=== PATIENT | male | born 1995 | race Caucasian/White ===

== ENCOUNTER 2022-10-05 10:03 | Outpatient (AMB) | payer OTHER, SELFPAY ==
--- NOTE | 2022-10-05 10:07 | A.OFFPC_ITS ---
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 Intake Note: Pt is here today as a New Patient/ PE Allergies No Known Allergies Allergy (Verified 10/12/22 23:00) Medication List - Last Reconciled 10/05/22 by Sharon Miles MD dextroamphetamine-amphetamine 10 mg (Adderall) 15 mg PO DAILY metaxalone mg PO naproxen 500 mg PO BID Tobacco use date assessed: 10/05/22 Dental Screening Dental Screen Date: 10/05/22 Did you have a dental visit in the last 12 months?: Yes Did you have a dental problem in the last 6 months where you did not have access to dental care?: No Was dental information given to patient?: 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 He currently is taking dextroamphetamine-amphetamine, prescribed by his previous physician in [place], for ADD. He also has PTSD, to be starting with a new therapist and psychiatrist in [place] for treatment. He has been complaining however of feeling tired all the time, has excessive daytime sleepiness, has been told that he has episodes where he has would stop breathing briefly at night, and he snores loudly. He has chronic low back pain, diagnosed to have lumbar disc disease with radiculopathy, and has had epidural steroid injections in 2021 while he was in [place] and is currently undergoing physical therapy . Complains of difficulty initiating and maintaining penile erection during sexual intercourse, this has been ongoing now and getting worse over the last several months. [facility] Medical History (Updated 10/12/22 @ 23:32 by Sharon Miles MD) ADD (attention deficit disorder) Difficulty concentrating Erectile dysfunction Excessive daytime sleepiness Fatigue History of chlamydia History of COVID-19 Loud snoring Lumbar degenerative disc disease Lumbar disc disease with radiculopathy PTSD (post-traumatic stress disorder) Witnessed apneic spells Surgical History (Updated 10/05/22 @ 10:51 by Sharon Miles MD) No pertinent past surgical history Social History Housing: Apartment Patient Tobacco Use Status: Never used Tobacco e-Cigarette/Vaping Use: Never Used service: Yes Current occupational status: employed Cognitive needs: No Hearing needs: No Vision needs: No Questionnaire PHQ-9 Over the last 2 weeks, how often have you been bothered by any of the following problems? 1. Little interest or pleasure in doing things: nearly every day 2. Feeling down, depressed, or hopeless: several days 3. Trouble falling or staying asleep, or sleeping too much: nearly every day 4. Feeling tired or having little energy: several days 5. Poor appetite or overeating: nearly every day 6. Feeling bad about yourself - or that you are a failure or have let yourself or your family down: more than half the days 7. Trouble concentrating on things, such as reading the newspaper or watching television: several days 8. Moving or speaking so slowly that other people could have noticed. Or the opposite - being so fidgety or restless that you have been moving around a lot more than usual: not at all 9. Thoughts that you would be better off or of hurting yourself in some way: not at all Total score: 14 Depression Screening Interpretation: Positive (Will be starting to see a therapist and a new psychiatrist in [place]) Depression Screening Follow- up: Existing condition, In treatment and Community Mental Health Worker F/U 06505 - PHQ-9 Billing: Yes Source: Developed by Drs. Shamir Ferraro, Jael Adams, Yobani Landaverde and colleagues, with an educational vidya from [employer]. Thrive Questionnaire Date Thrive assessed: 10/05/22 I am a: Patient What is your living situation today?: I have a steady place to live Within the past 12 months, did the food you bought not last and you didn't have the money to get more?: Never true Within the past 12 months, did you worry whether your food would run out before you got money to buy more?: Never true Do you have trouble paying for medicines?: No Do you have trouble getting transportation to medical appointments?: No Do you have trouble paying your heating and electricity bill?: No Do you have trouble taking care of your child, family member or friend?: No Do you have trouble with day-to-day activities such as bathing, preparing meals, shopping, managing finances, etc.?: No Are you currently unemployed and looking for a job?: No Are you interested in more education?: No AUDIT C Alcohol Use Questionnaire (AUDIT-C) 1. How often do you have a drink containing alcohol?: Never Total Score: 0 KHANG-7 AMB Questionnaire KHANG-7 Date KHAGN - 7 assessed: 10/05/22 Feeling nervous, anxious, or on edge: 2 = More than half the days Not being able to stop or control worryin = More than half the days Worrying too much about different things: 2 = More than half the days Trouble relaxin = Nearly every day Being so restless that it is hard to sit still: 2 = More than half the days Becoming easily annoyed or irritable: 1 = Several days Feeling afraid as if something awful might happen: 2 = More than half the days Total KHANG-7 score (0-4 normal; 5-9 mild; 10-14 moderate; 15-21 severe): 14 Source: Developed by Drs. Shamir Ferraro, Jael Adams, Yobani Landaverde and colleagues, with an educational vidya from [employer]. KHANG-7 Assessment Billing KHANG-7 Assessment Tool: KHANG-7 Assessment 21029 Mousie Sleepiness Scale Questions Sitting and reading: slight chance of dozing Watching TV: high chance of dozing Sitting inactive in a theater, movie etc.: slight chance of dozing As a passenger in a car for an hour without break: would never doze (Not applicable) Lying down in the afternoon when circumstances permit: high chance of dozing Sitting and talking to someone: would never doze Sitting quietly after lunch without alcohol: slight chance of dozing In a car, while stopped for a few minutes in the traffic: would never doze ESS < 10: normal, ESS > 12: pathologic: 9 Review of Systems Const Denies fever(s), Denies headache(s) and Denies weakness Eyes Denies change in vision ENT Denies dizziness, Denies headache(s), Denies nasal congestion, Denies nasal discharge and Denies sore throat Card Denies chest pain, Denies lightheadedness, Denies palpitations and Denies dyspnea Resp Denies chest congestion, Denies cough, Denies dyspnea and Denies wheezing GI Denies abdominal pain, Denies change in bowel habits and Denies heartburn Denies hematuria, Denies difficulty urinating, Denies dysuria, Denies urinary frequency and Denies urinary urgency Musc Reports as per HPI, Denies muscle weakness and Reports stiffness Skin/Breast Denies lesions and Denies rash Neuro Denies dizziness, Denies headache(s) and Denies weakness Psych Reports as per HPI Endo Denies polydipsia, Denies polyuria and Denies palpitations Masood/Lymph Denies easy bruising Aller/Immun Denies seasonal rhinorrhea and Denies wheezing Physical exam (Primary Care) Vital Signs: Last Vital Signs Pulse 78 10/05/22 10:12 BP 110/76 10/05/22 10:12 Pulse Ox 98 10/05/22 10:12 Oxygen Delivery Method Room Air 10/05/22 10:12 BMI result Body Mass Index 30.0 Tobacco/Smoking Status: Tobacco use Status Tobacco use date assessed 10/05/22 10/05/22 10:18 Patient Tobacco Use Status Never used Tobacco 10/05/22 10:18 e-Cigarette/Vaping Use Never Used 10/05/22 10:18 Depression Screening Interpretation: Positive (Will be starting to see a therapist and a new psychiatrist in [place]) Depression Screening Follow- up: Existing condition, In treatment and Community Mental Health Worker F/U Thrive Assessment: Date of Thrive Assessment Date Thrive assessed 10/05/22 10/05/22 10:18 Const General: cooperative, healthy appearing, comfortable, no acute distress, alert, awake and Physically active Nutritional Appearance: obese Orientation/consciousness: patient oriented x3 HENMT Head: Yes normocephalic Ears: hearing grossly normal bilaterally, external ears normal, TM's normal bilaterally and EAC's normal Face and sinus: Yes face symmetric Mouth: Normal oral and palatal mucosa present, tongue normal, oropharynx normal and moist mucous membranes Chest Chest palpation & inspection: normal inspection of the chest and normal palpation of entire chest wall Resp Effort & Inspection: normal respiratory effort and able to speak in complete sentences Auscultation: clear to auscultation bilaterally Cardio Rate: regular rate Rhythm: regular rhythm Heart sounds: S1 normal heart sound present and S2 normal heart sound present General: Yes no CVA tenderness Male General Exam: Yes normal external exam Back/Spine/Pelvis Back: no CVA tenderness Thoracic/Lumbar Spine: straight leg raise negative bilaterally and paraspinal muscle tenderness bilaterally in the lower lumbar Skin General skin exam: no rashes or lesions noted Neuro General: patient oriented x3, gait normal, tone normal, moves all extremities and Normal light touch and pain sensation Cranial nerves: Yes CN's II-XII intact bilaterally Cognition (Neuro): normal cognition Gait exam (Neuro): Normal gait present Motor exam (neuro): 5/5 motor strength present throughout Extrem General: Yes full ROM, Yes no joint enlargement, Yes no clubbing, cyanosis or edema and Yes normal gait Psych Appearance: grossly normal and well kempt Mental Status: mental status grossly normal Speech and movement: Normal speech and movement present Affect: normal affect Attitude: cooperative Thought process: Normal thought process present Assessment and Plan Assessment & Plan (1) ADD (attention deficit disorder): Comment: Diagnosed and evaluated in [place] in 2018, started on Adderall, takes as needed currently being seen [place] a behavioral therapist [place] Code(s): F98.8 - Other specified behavioral and emotional disorders with onset usually occurring in childhood and adolescence Plan: Currently on Adderall, followed by psychiatry (2) Annual visit for general adult medical examination with abnormal findings: Code(s): Z00.01 - Encounter for general adult medical examination with abnormal findings Plan: Will check appropriate labs. Recommended dental visit every 6 months and regular eye exams, at least every 2 years. Take adequate calcium in diet and vitamin-D 3 at 2000 IU per cap once a day, in addition to weight-bearing exercises to help maintain good muscle tone and weight control. Instructed to do self-testicular exam to check for any mass. (3) PTSD (post-traumatic stress disorder): Comment: Will be starting to see a therapist and psychiatrist in [place] referred by his therapist at [facility] . - Code(s): F43.10 - Post-traumatic stress disorder, unspecified (4) Lumbar disc disease with radiculopathy: Comment: L5-S1 status post epidural injection in [place] 2021 currently going to [facility] in [place] Code(s): M51.16 - Intervertebral disc disorders with radiculopathy, lumbar region Plan: Started physical therapy in [place] (5) Erectile dysfunction: Code(s): N52.9 - Male erectile dysfunction, unspecified Plan: Check testosterone level, TSH and CBC. (6) Witnessed apneic spells: Code(s): R06.81 - Apnea, not elsewhere classified Plan: Referred to sleep clinic at [place] for further evaluation and management (7) Loud snoring: Code(s): R06.83 - Snoring Plan: Referred to [place] sleep clinic for further evaluation management (8) Difficulty concentrating: Code(s): R41.840 - Attention and concentration deficit Plan: Will be seeing a therapist and psychiatrist in [facility] (9) Excessive daytime sleepiness: Code(s): G47.19 - Other hypersomnia Plan: Referred to sleep clinic in [facility] for further evaluation and management (10) Fatigue: Code(s): R53.83 - Other fatigue Plan: Check CBC, TSH, vitamin B12 and vitamin-D level, referred to sleep clinic in [place] for evaluation of possible obstructive sleep apnea (11) Routine screening for STI (sexually transmitted infection): Code(s): Z11.3 - Encounter for screening for infections with a predominantly sexual mode of transmission Plan: Will screen for GC chlamydia and HIV Orders: Orders Alanine Aminotransferase 10/05/22 G47.19 - Other hypersomnia, N52.9 - Male erectile dysfunction, unspecified, R06.81 - Apnea, not elsewhere classified, R06.83 - Snoring, R41.840 - Attention and concentration deficit, R53.83 - Other fatigue, Z11.3 - Encounter for screening for infections with a predominantly sexual mode of transmission, Z86.19 - Personal history of other infectious and parasitic diseases Aspartate Amino Transferase 10/05/22 G47.19 - Other hypersomnia, N52.9 - Male erectile dysfunction, unspecified, R06.81 - Apnea, not elsewhere classified, R06.83 - Snoring, R41.840 - Attention and concentration deficit, R53.83 - Other fatigue, Z11.3 - Encounter for screening for infections with a predominantly sexual mode of transmission, Z86.19 - Personal history of other infectious and parasitic diseases Basic Metabolic Panel Fasting 10/05/22 G47.19 - Other hypersomnia, N52.9 - Male erectile dysfunction, unspecified, R06.81 - Apnea, not elsewhere classified, R06.83 - Snoring, R41.840 - Attention and concentration deficit, R53.83 - Other fatigue, Z11.3 - Encounter for screening for infections with a predominantly sexual mode of transmission, Z86.19 - Personal history of other infectious and parasitic diseases CT NG by PCR 10/05/22 G47.19 - Other hypersomnia, N52.9 - Male erectile dysfunction, unspecified, R06.81 - Apnea, not elsewhere classified, R06.83 - Snoring, R41.840 - Attention and concentration deficit, R53.83 - Other fatigue, Z11.3 - Encounter for screening for infections with a predominantly sexual mode of transmission, Z86.19 - Personal history of other infectious and parasitic diseases Vitamin B12 and Folate 10/05/22 G47.19 - Other hypersomnia, N52.9 - Male erectile dysfunction, unspecified, R06.81 - Apnea, not elsewhere classified, R06.83 - Snoring, R41.840 - Attention and concentration deficit, R53.83 - Other fatigue, Z11.3 - Encounter for screening for infections with a predominantly sex ual mode of transmission, Z86.19 - Personal history of other infectious and parasitic diseases Lipid Panel 10/05/22 G47.19 - Other hypersomnia, N52.9 - Male erectile dysfunc tion, unspecified, R06.81 - Apnea, not elsewhere classified, R06.83 - Snoring, R41.840 - Attention and concentration deficit, R53.83 - Other fatigue, Z11.3 - Encounter for screening for infections with a predominantly sexual mode of transmission, Z86.19 - Personal history of other infectious and parasitic diseases Testosterone, Free/Total 10/05/22 Z11.3 - Encounter for screening for infections with a predominantly sexual mode of transmission, Z86.19 - Personal history of other infectious and parasitic diseases TSH reflex Free T4 10/05/22 G47.19 - Other hypersomnia, N52.9 - Male erectile dysfunction, unspecified, R06.81 - Apnea, not elsewhere classified, R06.83 - Snoring, R41.840 - Attention and concentration deficit, R53.83 - Other fatigue, Z11.3 - Encounter for screening for infections with a predominantly sexual mode of transmission, Z86.19 - Personal history of other infectious and parasitic diseases Vitamin D 25-OH Total 10/05/22 G47.19 - Other hypersomnia, N52.9 - Male erectile dysfunction, unspecified, R06.81 - Apnea, not elsewhere classified, R06.83 - Snoring, R41.840 - Attention and concentration deficit, R53.83 - Other fatigue, Z11.3 - Encounter for screening for infections with a predominantly sexual mode of transmission, Z86.19 - Personal history of other infectious and parasitic diseases Complete Blood Count Auto Diff 10/05/22 G47.19 - Other hypersomnia, N52.9 - Male erectile dysfunction, unspecified, R06.81 - Apnea, not elsewhere classified, R06.83 - Snoring, R41.840 - Attention and concentration deficit, R53.83 - Other fatigue, Z11.3 - Encounter for screening for infections with a predominantly sexual mode of transmission, Z86.19 - Personal history of other infectious and parasitic diseases HIV Ab/Ag 10/05/22 Z11.3 - Encounter for screening for infections with a predominantly sexual mode of transmission, Z86.19 - Personal history of other infectious and parasitic diseases Referrals Sleep Medicine Referral G47.19 - Other hypersomnia, R06.81 - Apnea, not elsewhere classified, R06.83 - Snoring, R41.840 - Attention and concentration deficit, R53.83 - Other fatigue Coding Level of Care Code New Pt Prev Care 18-39yr([id number] Diagnoses ADD (attention deficit disorder) F98.8 Annual visit for general adult medical examination with abnormal findings Z00.01 PTSD (post-traumatic stress disorder) F43.10 Lumbar disc disease with radiculopathy M51.16 Erectile dysfunction N52.9 Witnessed apneic spells R06.81 Loud snoring R06.83 Difficulty concentrating R41.840 Excessive daytime sleepiness G47.19 Fatigue R53.83 Routine screening for STI (sexually transmitted infection) Z11.3 Additional Codes KHANG-7 Assessment Billing - KHANG-7 Assessment Tool: KHANG-7 Assessment 46311 ([id number])
[2022-10-05 10:12] VITALS: BP 110/76; PULSE 78; O2SAT 98
== END 2022-10-05 11:12 | disposition home or self-care (01) ==
PROVIDERS: PCP Internal Medicine; Visit Provider Internal Medicine
DX: Z00.01 Encounter for general adult medical examination with abnormal findings (principal); F98.8 Other specified behavioral and emotional disorders with onset usually occurring in childhood and adolescence; F43.10 Post-traumatic stress disorder, unspecified; M51.16 Intervertebral disc disorders with radiculopathy, lumbar region; N52.9 Male erectile dysfunction, unspecified; R06.81 Apnea, not elsewhere classified; R06.83 Snoring; R41.840 Attention and concentration deficit; G47.19 Other hypersomnia; R53.83 Other fatigue; Z11.3 Encounter for screening for infections with a predominantly sexual mode of transmission
CPT/HCPCS: 96127; 99385

== ENCOUNTER 2022-10-05 11:09 | Outpatient (REF) | payer OTHER, SELFPAY ==
[2022-10-05 13:03] LABS: MANUAL DIFF FLAG NO
[2022-10-05 13:30] LABS: Basophils Percent Auto 0.8 % (0-2); Eosinophils Absolute Auto 0.2 X10*3/uL (0.0-0.4); Hemoglobin 16.5 g/dl (14.0-18.0); Imm Gran Abs Auto 0.01 X10*3/uL (0.00-0.03); Imm Gran Pct Auto 0.2 % (0.0-0.4); Lymphocytes Absolute Auto 1.5 X10*3/uL (1.2-4.9); Lymphocytes Percent Auto 29.6 % (20-40); Mean Corpuscular HGB Conc 35.1 g/dl (31.0-36.0); Mean Corpuscular Hemoglobin 31.5 pg (27.0-33.0); Mean Corpuscular Volume 89.7 fL (80.0-98.0); Mean Platelet Volume 10.4 fL (9.4-12.4); Monocytes Absolute Auto 0.5 X10*3/uL (0.1-1.2); Monocytes Percent Auto 9.7 % (2-11); Neutrophils Absolute Auto 2.9 x10*3/uL (2.0-8.3); Neutrophils Percent Auto 56.7 % (45-73); Platelet Count 219 X10*3/uL (160-400); Red Blood Count 5.24 X10*6/uL (4.60-5.80); Red Cell Distribution Width 12.3 % (11.0-16.0)
[2022-10-05 14:08] LABS: Alanine Aminotransferase 14 U/L (0-40); Anion Gap 13 (12-20); Aspartate Amino Transferase 15 U/L (5-37); Blood Urea Nitrogen 12 mg/dL (9-16); Calcium 9.9 mg/dL (8.4-10.2); Carbon Dioxide 23 mmol/L (22-29); Chloride 108 mmol/L (96-108); Cholesterol 198 mg/dL; Estimated Glomerular Filt Rate > 60; Glucose Fasting 88 mg/dL (60-99); HDL Cholesterol 36 mg/dL; LDL Cholesterol Calculated 140 mg/dl; Potassium 4.3 mmol/L (3.3-5.1); Sodium 140 mmol/L (135-145); Triglycerides 110 mg/dL
[2022-10-05 14:14] LABS: Vitamin D 25-OH Total 79.2 ng/mL (>30)
[2022-10-05 14:26] LABS: Folate 10.9 ng/mL (> or = 4.0); Vitamin B12 380 pg/mL (200-900)
[2022-10-06 05:51] LABS: HIV AB/AG Nonreactive (Nonreactive); HIV Num 1 0.05 S/CO (0.00-0.99)
[2022-10-06 13:34] LABS: CT PCR NOT DETECTED (Not Detect.); NG PCR NOT DETECTED (Not Detect.)
[2022-10-10 16:38] LABS: Testosterone, Free 86.6 pg/mL (35.0-155.0); Testosterone, Total 378 ng/dL (250-1100)
== END 2022-10-05 11:10 | disposition home or self-care (01) ==
LOC: HO.HMGCLDS 11:09
PROVIDERS: PCP Internal Medicine; Visit Provider Internal Medicine
DX: Z11.4 Encounter for screening for human immunodeficiency virus [HIV] (principal); N52.9 Male erectile dysfunction, unspecified; R06.81 Apnea, not elsewhere classified; R06.83 Snoring; R41.840 Attention and concentration deficit; R53.83 Other fatigue; G47.19 Other hypersomnia; Z86.19 Personal history of other infectious and parasitic diseases; Z20.2 Contact with and (suspected) exposure to infections with a predominantly sexual mode of transmission
CPT/HCPCS: 0353U; 80048; 80061; 82306; 82607; 82746; 84402; 84403; 84443; 84450; 84460; 85025; 87389

== ENCOUNTER 2022-10-21 13:45 | Outpatient (AMB) | payer OTHER, SELFPAY ==
--- NOTE | 2022-10-21 13:46 | A.OFFPC_ITS ---
Intake Visit Reasons: Discuss labs/Iphone/[phone] Intake Note: patient is here for f/u labs Allergies No Known Allergies Allergy (Verified 10/21/22 14:12) Medication List - Last Reconciled 10/21/22 by Sharon Miles MD dextroamphetamine-amphetamine 10 mg (Adderall) 15 mg PO DAILY metaxalone mg PO naproxen 500 mg PO BID Tobacco use date assessed: 10/05/22 Dental Screening Dental Screen Date: 10/21/22 Did you have a dental visit in the last 12 months?: Yes Did you have a dental problem in the last 6 months where you did not have access to dental care?: No Was dental information given to patient?: Patient has dentist HPI Discuss labs/Iphone/[phone] HPI Details 26-year-old male with history of PTSD, ADD, lumbar disc disease with radiculopathy, here today to discuss results of recent labs done , which was essentially unremarkable except for elevated LDL cholesterol at 140 and a low HDL cholesterol. His serum testosterone was on the low normal side. However states that he has had his cholesterol levels going as low as 145 in the past. Still complaining of tired all the time, does have an appointment for sleep study to be done at [facility] coming up soon. He states that. Still having problems with loss of libido and difficulty maintaining penile erection during sexual intercourse. Would like a referral to see urologist for further evaluation [facility] Medical History (Updated 10/21/22 @ 17:14 by Sharon Miles MD) ADD (attention deficit disorder) Difficulty concentrating Erectile dysfunction Excessive daytime sleepiness Fatigue History of chlamydia History of COVID-19 Hyperlipidemia Loss of libido Loud snoring Lumbar degenerative disc disease Lumbar disc disease with radiculopathy PTSD (post-traumatic stress disorder) Witnessed apneic spells Surgical History No pertinent past surgical history Social History Housing: Apartment Patient Tobacco Use Status: Never used Tobacco e-Cigarette/Vaping Use: Never Used service: Yes Current occupational status: employed Cognitive needs: No Hearing needs: No Vision needs: No Questionnaire Thrive Questionnaire Date Thrive assessed: 10/05/22 KHANG-7 AMB Questionnaire KHANG-7 Date KHANG - 7 assessed: 10/05/22 Source: Developed by Drs. Shamir Ferraro, Jael Adams, Yobani Landaverde and colleagues, with an educational vidya from [email or web address]. Review of Systems Const Denies fever(s), Denies headache(s) and Denies weakness ENT Denies dizziness, Denies headache(s) and Denies nasal congestion Card Denies chest pain, Denies lightheadedness, Denies palpitations and Denies dyspnea Resp Denies chest congestion, Denies cough and Denies dyspnea GI Denies abdominal pain, Denies change in bowel habits and Denies heartburn Denies hematuria, Denies difficulty urinating, Denies dysuria, Denies urinary frequency and Denies urinary urgency Musc Reports as per HPI, Denies muscle weakness and Reports stiffness Neuro Denies dizziness, Denies headache(s) and Denies weakness Endo Denies polydipsia, Denies polyuria and Denies palpitations Physical exam (Primary Care) Tobacco/Smoking Status: Tobacco use Status Tobacco use date assessed 10/05/22 10/21/22 13:48 Patient Tobacco Use Status Never used Tobacco 10/21/22 13:48 e-Cigarette/Vaping Use Never Used 10/21/22 13:48 Thrive Assessment: Date of Thrive Assessment Date Thrive assessed 10/05/22 10/21/22 13:48 Telehealth Telehealth Location of provider rendering services: practice address Location of patient: address on file Patient Identification confirmed using: Name, : Yes Telehealth method: voice only Patient verbally consented to treatment: Yes Patient verbally consented to billing insurance company: Yes Patient informed of any privacy concerns related to visit: Yes Minutes spent on Phone/Video with Pt.: 15 Results Reviewed Results Reviewed: RUN: 10/24/22 0001 PAGE 1 [facility] [address] [place] [id number] Store [employer] Associate: Catarino Gongora M.D. Specimen Inquiry Name: Naseem Mehta Age/Sex: 26/M : 1995 Unit#: [id number] Attend Dr: Sharon Miles MD Re10/05/22 Status: DEP REF Location: [facility] Disch: SPEC : [id number] KEVAN: 10/05/22 STATUS: COMP REQ : [id number] RECD: 10/05/[address]: Sharon Miles MD COMP: 10/05/22 ENTERED: 10/05/22 [facility] DR: ORDERED: CBC Auto Diff Test Result Flag Reference Site WBC 5.0 4.8-10.8 X10*3/uL RBC 5.24 4.60-5.80 X10*6/uL HGB 16.5 14.0-18.0 g/dl HCT 47.0 42.0-52.0 % MCV 89.7 80.0-98.0 fL MCH 31.5 27.0-33.0 pg MCHC 35.1 31.0-36.0 g/dl RDW 12.3 11.0-16.0 % PLT 219 160-400 X10*3/uL ENTERED: 10/05/22 [facility] DR: ORDERED: Met Prof Fast, AST, ALT, Lipid Panel, Vitamin D 25-OH, TSH Rflx Test Result Flag Reference Site Sodium 140 135-145 mmol/L Potassium 4.3 3.3-5.1 mmol/L CL 108 96-108 mmol/L CO2 23 22-29 mmol/L Gap 13 12-20 BUN 12 9-16 mg/dL Creat 1.04 0.5-1.4 mg/dL EGFR > 60 NOTE: For -Honduran individuals, multiply the result by 1.210. Chronic Kidney Disease: Estimated GFR < 60 mL/min/1.73m2 Severe Kidney Disease: Estimated GFR < 15 mL/min/1.73m2 FBS 88 60-99 mg/dL CA 9.9 8.4-10.2 mg/dL AST (GOT) 15 5-37 U/L ALT (GPT) 14 0-40 U/L Triglyceride 110 mg/dL Desirable Triglyceride: less than 150 mg/dL Borderline High Triglyceride 150-199 mg/dL High Triglyceride: 200-499 mg/dL Very High Triglyceride: greater than or equal to 5OO mg/dL Chol 198 mg/dL Desirable Cholesterol: less than 200 mg/dL Borderline High Cholesterol: 200-239 mg/dL High Cholesterol: greater than 239 mg/dL LDL Calculated 140 mg/dl Desirable LDL: less than 100 mg/dL Near Optimal/Above Optimal LDL: 110-129 mg/dL Borderline High LDL: 130-159 mg/dL High LDL: 160-189 mg/dL Very High LDL: greater than or equal to 190 mg/dL HDL 36 mg/dL Desirable HDL: greater than 40 mg/dL Note: This HDL assay may give artificially low results in patients with liver disease. Vit D 25-OH Tot 79.2 >30 ng/mL Health Based Reference Values* < 20 ng/mL Deficient 20-30 ng/mL Insufficient > 30 ng/mL Sufficient *Deondre LOCKWOOD. N Engl J Med. 2007;357:266-280 Care must be taken in interpreting Vitamin D results from different laboratories and methodologies. Published data demonstrated that results from patients undergoing hemodialysis may show a negative bias when tested with various automated 25-OH vitamin D assays when compared to LC-MS/MS. When testing samples from patients whose predominant form of Vitamin D is Vitamin D2, such as patients receiving Vitamin D2 supplementation, results that are subtherapeutic should be confirmed with another method such as LC-MS/MS. TSH 1.60 0.32-4.0 uIU/mL Laboratory Tests 10/05/22 11:23 Total Testosterone 378 Fr Testosterone Dialys 86.6 Assessment and Plan Assessment & Plan (1) Erectile dysfunction: Code(s): N52.9 - Male erectile dysfunction, unspecified (2) Loss of libido: Code(s): R68.82 - Decreased libido (3) Fatigue: Code(s): R53.83 - Other fatigue Plan: Has appointment already scheduled for sleep study to rule out obstructive sleep apnea (4) Hyperlipidemia: Code(s): E78.5 - Hyperlipidemia, unspecified Orders: Referrals Urology Referral N52.9 - Male erectile dysfunction, unspecified, R53.83 - Other fatigue, R68.82 - Decreased libido Coding Level of Care Code Tele Est Pt Level 3 (06931) Diagnoses Erectile dysfunction N52.9 Loss of libido R68.82 Fatigue R53.83 Hyperlipidemia E78.5
== END 2022-10-21 17:30 | disposition home or self-care (01) ==
LOC: HO.HMGC 13:45
PROVIDERS: PCP Internal Medicine; Visit Provider Internal Medicine
DX: N52.9 Male erectile dysfunction, unspecified (principal); R68.82 Decreased libido; R53.83 Other fatigue; E78.5 Hyperlipidemia, unspecified
CPT/HCPCS: 99213

== ENCOUNTER 2022-11-29 11:05 | Outpatient (AMB) | payer OTHER, SELFPAY ==
--- NOTE | 2022-11-29 11:23 | A.OFFVIS_ITS ---
Intake Intake Visit Reasons: Decreased libido/ED Intake Note: New Patient presents for initial visit decreased libido/erectile dysfunction Urology Medications: none Blood Thinner: none Diabetic: no [employer] Operator Required: No Accompanied by: Self / Same As Patient Allergies No Known Allergies Allergy (Verified 11/29/22 22:41) Medication List - Last Reconciled 11/29/22 by GAVIN Pemberton dextroamphetamine-amphetamine 10 mg (Adderall) 15 mg PO DAILY metaxalone mg PO naproxen 500 mg PO BID tadalafil (Cialis) 5 mg PO DAILY 30 days HPI HPI Comments History of Present Illness Details Naseem is a very pleasant 27-year-old male patient of Dr. Miles. He has a past medical history of PTSD, lumbar disc disease with radiculopathy, ADD, anxiety, and depression. He presents to the office today as a new patient for low libido, fatigue, and erectile dysfunction. In discussion with the patient today he reports noting over the last 3 years to be having ongoing issues with fatigue, low libido, and erectile dysfunction. He reports noting despite adequate sleep of 8-10 hours per night he still feels fatigued upon wakening. He discusses his ongoing issues with his major depression. He discusses going to therapy. He reports having had multiple sleep studies in the past however has not been diagnosed with sleep apnea despite his snoring. When asked patient reports at times being able to obtain erections however feels maintaining erections are difficult. In review of patient's chart it appears testosterone levels were ordered these results were reviewed with the patient today. 10/26--378. Discussed at length potential causes for low libido, fatigue, and erectile dysfunction. Discussed obtaining further labs for assessment evaluation. When asked patient denies any bothersome urinary issues at this time. He denies urinary urgency, urinary frequency, incontinence, nocturia, hematuria, dysuria, foul smelling urine, changes to urinary stream, flank pain, fever, and or chills. He is happy with his current voiding parameters. In office urinalysis results reviewed with the patient today. He otherwise offers no issues or concerns at this time. [facility] Medical History Hyperlipidemia Loss of libido History of chlamydia Witnessed apneic spells Loud snoring Difficulty concentrating Excessive daytime sleepiness Fatigue Erectile dysfunction History of COVID-19 Lumbar degenerative disc disease PTSD (post-traumatic stress disorder) Lumbar disc disease with radiculopathy ADD (attention deficit disorder) Surgical History No pertinent past surgical history Social History Housing: Apartment Patient Tobacco Use Status: Never used Tobacco e-Cigarette/Vaping Use: Never Used service: Yes Current occupational status: employed Cognitive needs: No Hearing needs: No Vision needs: No Review of Systems Const Reports no additional complaints Eyes Reports no additional complaints ENT Reports no additional complaints Card Reports no additional complaints Resp Reports no additional complaints GI Reports no additional complaints Reports as per HPI Musc Reports as per HPI Neuro Reports no additional complaints Psych Reports as per HPI Endo Reports no additional complaints Masood/Lymph Reports no additional complaints Aller/Immun Reports no additional complaints Physical Exam Const General: cooperative, healthy appearing, comfortable, no acute distress, well developed, alert and awake Orientation/consciousness: patient oriented x3 Limitations: no limitations HEENT Head: Yes normal to inspection, Yes normocephalic and Yes atraumatic Ears: hearing grossly normal bilaterally Eyes General: appearance normal, both eyes and all related structures Neck Neck: Yes normal visual inspection and Yes trachea midline Chest Chest palpation & inspection: normal inspection of the chest Resp Effort & Inspection: normal respiratory effort and able to speak in complete sentences Cardio Rate: regular rate GI Inspection: Yes normal to inspection General: Yes no CVA tenderness Back/Spine/Pelvis Back: no CVA tenderness Skin General skin exam: no rashes or lesions noted Neuro General: patient oriented x3 Extrem General: Yes normal to inspection Psych Appearance: grossly normal and well kempt Mental Status: mental status grossly normal Speech and movement: Normal speech and movement present and Clear speech present Affect: normal affect Attitude: cooperative Thought process: Normal thought process present Thought content: Normal thought content present Insight: Fair insight present (Psych) Judgement: Fair judgement present (Psych) Results AMB Urinalysis, Automated UA Leukoctes 0 Eriberto/uL Last Edit by Shania Brandon on 11/29/22 11:47 UA Nitrite Negative Last Edit by Shania Brandon on 11/29/22 11:47 UA Urobilinogen 1 mg/dL Last Edit by Shania Brandon on 11/29/22 11:47 UA Protein 15 mg/dL Last Edit by Shania Brandon on 11/29/22 11:47 UA pH 6.0 Last Edit by Shania Brandon on 11/29/22 11:47 UA Blood 0 Genaro/uL Last Edit by Shania Brandon on 11/29/22 11:47 UA Specific [place] 1.020 Last Edit by Shania Brandon on 11/29/22 11:47 UA Ketone Negative Last Edit by Shania Brandon on 11/29/22 11:47 UA Bilirubin 1 mg/dL Last Edit by Shania Brandon on 11/29/22 11:47 UA Glucose 0 mg/dL Last Edit by Shania Brandon on 11/29/22 11:47 Results Reviewed Results Reviewed: Laboratory Last Values Urine pH (Auto) 6.0 11/29/22 11:27 Specific [place] (Auto) 1.020 11/29/22 11:27 Urine Protein (Auto) 15 mg/dL 11/29/22 11:27 Glucose (UA)(Auto) 0 mg/dL 11/29/22 11:27 Urine Ketones (Auto) Negative 11/29/22 11:27 Urine Blood (Auto) 0 Genaro/uL 11/29/22 11:27 Urine Nitrite (Auto) Negative 11/29/22 11:27 Urine Bilirubin (Auto) 1 mg/dL 11/29/22 11:27 Urine Urobilinogen (Auto) 1 mg/dL 11/29/22 11:27 Leukocyte Esterase (Auto) 0 Eriberto/uL 11/29/22 11:27 Assessment & Plan Assessment & Plan (1) Loss of libido: Code(s): R68.82 - Decreased libido (2) Fatigue: Code(s): R53.83 - Other fatigue (3) Erectile dysfunction: Code(s): N52.9 - Male erectile dysfunction, unspecified Plan In office urinalysis results reviewed with the patient today; as noted above. Patient denies any bothersome urinary issues at this time. Discussed obtaining testosterone free and total, estradiol, SHBG, LH, and FSH for further assessment evaluation. Discussed at length lifestyle modifications to assist with low libido and erectile dysfunction. Start 5 mg of Cialis daily as discussed and prescribed. Follow-up in 4 weeks with labs to be completed prior; or sooner with any issues, concerns, and or questions. Orders: Orders Testosterone, Free/Total Today R68.82 - Decreased libido Prolactin Today R68.82 - Decreased libido Estradiol Ultra Sensitive Today E29.1 - Testicular hypofunction, R68.82 - Decreased libido AMB Urinalysis Automated Today Z13.9 - Encounter for screening, unspecified Sex Hormone Binding Globulin Today R68.82 - Decreased libido Lutenizing Hormone Today R68.82 - Decreased libido Follicle Stimulating Hormone Today R68.82 - Decreased libido Medications: New tadalafil (Cialis) BIN [id number] [facility] Group DR33 5 mg PO DAILY 30 days 30 tabs 2RF R68.82 - Decreased libido Patient Instructions: The patient had an opportunity to ask questions regarding the treatment plan. All questions were answered. Physical exam, labs, and imaging were discussed and reviewed in detail. As well as risks, benefits, and discussion of treatment choices. No major barriers to understanding were identified. The patient expressed understanding and agreement with the above treatment plan. The patient was made aware they should contact our office by phone for worsening of their current condition, the appearance of new symptoms, or with any questions or concerns. Compliance is encouraged with any medications and follow up testing that is ordered. It is a privilege to be allowed the opportunity to participate in? your urological care.? Again, if you have any questions or concerns If you have any questions or concerns please do not hesitate to contact me. The office is [phone]. This note is constructed using voice recognition software. While every effort has been made to ensure accuracy director of consumer affairs errors may have been included. Yours sincerely, GAVIN Pemberton Coding Level of Care Code New Pt Level 4 (00859) Diagnoses Loss of libido R68.82 Fatigue R53.83 Erectile dysfunction N52.9
== END 2022-11-29 12:16 | disposition home or self-care (01) ==
PROVIDERS: PCP Internal Medicine; Visit Provider Nurse Practitioner Family
DX: R68.82 Decreased libido (principal); R53.83 Other fatigue; N52.9 Male erectile dysfunction, unspecified
CPT/HCPCS: 99204

== ENCOUNTER → 2022-11-29 11:05 | Outpatient (BNVA) | payer OTHER, SELFPAY | PROVIDERS: PCP Internal Medicine; Visit Provider Nurse Practitioner Family | DX: R68.82 Decreased libido (principal); R53.83 Other fatigue; N52.9 Male erectile dysfunction, unspecified | CPT/HCPCS: 81003 ==

== ENCOUNTER 2022-12-06 09:37 | Outpatient (REF) | payer OTHER, SELFPAY ==
[2022-12-08 05:04] LABS: Follicle Stimulating Hormone 2.7 mIU/mL (1.6-8.0); Lutenizing Hormone 5.9 mIU/mL (1.5-9.3); Prolactin 7.6 ng/mL (2.0-18.0)
[2022-12-08 06:58] LABS: Sex Hormone Binding Globulin 19 nmol/L (10-50)
[2022-12-11 15:58] LABS: Testosterone, Free 58.5 pg/mL (35.0-155.0); Testosterone, Total 297 ng/dL (250-1100)
[2022-12-12 00:08] LABS: Estradiol Ultra Sensitive 13 pg/mL (< OR = 29)
== END 2022-12-06 09:38 | disposition home or self-care (01) ==
LOC: HO.10HDL 09:37
PROVIDERS: Visit Provider Nurse Practitioner Family
DX: R68.82 Decreased libido (principal); E29.1 Testicular hypofunction
CPT/HCPCS: 36415; 82670; 83001; 83002; 84146; 84270; 84402; 84403

== ENCOUNTER 2022-12-20 11:54 | Outpatient (AMB) | payer OTHER, SELFPAY ==
--- NOTE | 2022-12-20 12:06 | A.OFFVIS_ITS ---
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: No Accompanied by: Self / Same As Patient Allergies No Known Allergies Allergy (Verified 12/20/22 14:04) Medication List - Last Reconciled 12/20/22 by GAVIN Pemberton B-complex with vitamin C 1 tab PO DAILY 30 days benzonatate mg PO bupropion HCl 150 mg PO QAM dextroamphetamine-amphetamine 10 mg (Adderall) 15 mg PO DAILY doxycycline hyclate 100 mg PO BID ferrous sulfate 325 mg PO Q OTHER DAY 30 days metaxalone mg PO naproxen 500 mg PO BID tadalafil (Cialis) 5 mg PO DAILY 90 days tadalafil (Cialis) 20 mg PO DAILY PRN 90 days HPI HPI Comments History of Present Illness Details Naseem is a very pleasant 27-year-old male patient of Dr. Miles. He has a past medical history of PTSD, lumbar disc disease with radiculopathy, ADD, anxiety, and depression. He presents to the office today for follow-up. Of note, patient was seen approximately 2 weeks ago as a new patient for low libido, fatigue, and erectile dysfunction at which time labs were or dered for further assessment evaluation. These results reviewed with the patient today. 12/26 TSH--1.60 FSH--2.7 Estradiol--13 LH--5.9 Prolactin--7.6 Total testosterone--297, 10/26--378 Free testosterone--58.5, 10/26--86.6 SHBG--19 In discussion with the patient today he reports noting over the last 3 years to be having ongoing issues with fatigue, low libido, and erectile dysfunction. He reports noting despite adequate sleep of 8-10 hours per night he still feels fatigued upon wakening. He discusses his ongoing issues with his major depression. He discusses going to therapy. He reports having had multiple sleep studies in the past however has not been diagnosed with sleep apnea despite his snoring. However, patient reports having followed up in will be undergoing sleep study for further assessment and evaluation. During last office visit patient was prescribed low-dose 5 mg Cialis daily. Does not note any improvement at this time however discussed recent initiation of medication. Discussed dosing for p.r.n. on demand for sexual activity. When asked patient denies any bothersome urinary issues at this time. He denies urinary urgency, urinary frequency, incontinence, nocturia, hematuria, dysuria, foul smelling urine, changes to urinary stream, flank pain, fever, and or chills. He is happy with his current voiding parameters. In office urinalysis results reviewed with the patient today. He otherwise offers no issues or concerns at this time. Discussed continuation of low-dose Cialis in obtaining redraw of labs in 3 months. Discussed at length on lifestyle modifications to assist with erectile dysfunction. [facility] Medical History Hyperlipidemia Loss of libido History of chlamydia Witnessed apneic spells Loud snoring Difficulty concentrating Fatigue Erectile dysfunction History of COVID-19 Lumbar degenerative disc disease PTSD (post-traumatic stress disorder) Lumbar disc disease with radiculopathy ADD (attention deficit disorder) Surgical History No pertinent past surgical history Social History Housing: Apartment Patient Tobacco Use Status: Never used Tobacco e-Cigarette/Vaping Use: Never Used service: Yes Current occupational status: employed Cognitive needs: No Hearing needs: No Vision needs: No Review of Systems Const Reports no additional complaints Eyes Reports no additional complaints ENT Reports no additional complaints Card Reports as per [facility] Resp Reports as per [facility] GI Reports no additional complaints Reports as per [facility] Musc Reports as per [facility] Neuro Reports as per HPI Psych Reports as per HPI Endo Reports no additional complaints Masood/Lymph Reports no additional complaints Aller/Immun Reports no additional complaints Physical Exam Const General: cooperative, healthy appearing, comfortable, no acute distress, well developed, alert and awake Orientation/consciousness: patient oriented x3 Limitations: no limitations HEENT Head: Yes normal to inspection, Yes normocephalic and Yes atraumatic Ears: hearing grossly normal bilaterally Eyes General: appearance normal, both eyes and all related structures Neck Neck: Yes normal visual inspection and Yes trachea midline Chest Chest palpation & inspection: normal inspection of the chest Resp Effort & Inspection: normal respiratory effort and able to speak in complete sentences Cardio Rate: regular rate GI Inspection: Yes normal to inspection General: Yes no CVA tenderness Back/Spine/Pelvis Back: no CVA tenderness Skin General skin exam: no rashes or lesions noted Neuro General: patient oriented x3 Extrem General: Yes normal to inspection Psych Appearance: grossly normal and well kempt Mental Status: mental status grossly normal Speech and movement: Normal speech and movement present and Clear speech present Affect: normal affect Attitude: cooperative Thought process: Normal thought process present Thought content: Normal thought content present Insight: Fair insight present (Psych) Judgement: Fair judgement present (Psych) Results AMB Urinalysis, Automated UA Leukoctes 0 Eriberto/uL Last Edit by [employer] on 12/20/22 12:24 UA Nitrite Negative Last Edit by [employer] on 12/20/22 12:24 UA Urobilinogen 0.2 mg/dL Last Edit by [employer] on 12/20/22 12:24 UA Protein 0 mg/dL Last Edit by [employer] on 12/20/22 12:24 UA pH 6.0 Last Edit by [employer] on 12/20/22 12:24 UA Blood 0 Genaro/uL Last Edit by [employer] on 12/20/22 12:24 UA Specific [place] 1.025 Last Edit by [employer] on 12/20/22 12:24 UA Ketone Negative Last Edit by [employer] on 12/20/22 12:24 UA Bilirubin 0 mg/dL Last Edit by [employer] on 12/20/22 12:24 UA Glucose 0 mg/dL Last Edit by [employer] on 12/20/22 12:24 Results Reviewed Results Reviewed: Laboratory Last Values Urine pH (Auto) 6.0 12/20/22 12:14 Specific [place] (Auto) 1.025 12/20/22 12:14 Urine Protein (Auto) 0 mg/dL 12/20/22 12:14 Glucose (UA)(Auto) 0 mg/dL 12/20/22 12:14 Urine Ketones (Auto) Negative 12/20/22 12:14 Urine Blood (Auto) 0 Genaro/uL 12/20/22 12:14 Urine Nitrite (Auto) Negative 12/20/22 12:14 Urine Bilirubin (Auto) 0 mg/dL 12/20/22 12:14 Urine Urobilinogen (Auto) 0.2 mg/dL 12/20/22 12:14 Leukocyte Esterase (Auto) 0 Eriberto/uL 12/20/22 12:14 Assessment & Plan Assessment & Plan (1) Loss of libido: Code(s): R68.82 - Decreased libido (2) Fatigue: Code(s): R53.83 - Other fatigue Plan In office urinalysis results reviewed with the patient today; as noted above. Recent labs reviewed with the patient today; as noted and trended above. Discussed at length lifestyle modifications to assist with erectile dysfunction Discussed keeping scheduled follow-up for further assessment evaluation of sleep apnea. Continue low-dose 5 mg Cialis daily. Description provided for p.r.n. 20 mg Cialis one hour prior to sexual activity. Will obtain testosterone free and total in 3 months. Follow-up in 3 months with labs to be completed prior; or sooner with any issues, concerns, and or questions. Orders: Orders AMB Urinalysis Automated Today Z13.9 - Encounter for screening, unspecified Testosterone, Free/Total 3 Months R53.83 - Other fatigue, R68.82 - Decreased libido Medications: New tadalafil (Cialis) administer approximately 30min before sexual activity; do not use more than 1 dose per 24hrs BIN [id number] [facility] DR33 20 mg PO DAILY 90 days PRN 30 tabs 0RF sexual activity Changed From tadalafil (Cialis) BIN [id number] [facility] DR33 5 mg PO DAILY 30 days 30 tabs 2RF R68.82 - Decreased libido To tadalafil (Cialis) BIN [id number] [facility] DR33 5 mg PO DAILY 90 days 90 tabs 0RF R68.82 - Decreased libido Patient Instructions: The patient had an opportunity to ask questions regarding the treatment plan. All questions were answered. Physical exam, labs, and imaging were discussed and reviewed in detail. As well as risks, benefits, and discussion of treatment choices. No major barriers to understanding were identified. The patient expressed understanding and agreement with the above treatment plan. The patient was made aware they should contact our office by phone for worsening of their current condition, the appearance of new symptoms, or with any questions or concerns. Compliance is encouraged with any medications and follow up testing that is ordered. It is a privilege to be allowed the opportunity to participate in? your urological care.? Again, if you have any questions or concerns If you have any questions or concerns please do not hesitate to contact me. The office is [phone]. This note is constructed using voice recognition software. While every effort has been made to ensure accuracy dough scaler and mixer errors may have been included. Yours sincerely, GAVIN Pemberton Coding Level of Care Code Est Pt Level 4 (42889) Diagnoses Loss of libido R68.82 Fatigue R53.83
== END 2022-12-20 12:39 | disposition home or self-care (01) ==
PROVIDERS: PCP Internal Medicine; Visit Provider Nurse Practitioner Family
DX: R68.82 Decreased libido (principal); R53.83 Other fatigue; Z13.9 Encounter for screening, unspecified
CPT/HCPCS: 99214

== ENCOUNTER → 2022-12-20 11:54 | Outpatient (BNVA) | payer OTHER, SELFPAY | PROVIDERS: PCP Internal Medicine; Visit Provider Nurse Practitioner Family | DX: G47.19 Other hypersomnia (principal); R06.81 Apnea, not elsewhere classified; R06.83 Snoring | CPT/HCPCS: 81003; 99212 ==

== ENCOUNTER 2022-12-20 13:02 | Outpatient (AMB) | payer OTHER, SELFPAY ==
--- NOTE | 2022-12-20 13:02 | MHC.OFFVIS ---
Intake Vital Signs 12/20/22 13:11 Height 6 ft Weight 225 lb BMI 30.5 BP 112/84 Blood Pressure Location Rt brachial Position Sitting Pulse 85 Pulse Source Pulse Oximeter Pulse Oximetry (%) 98 Oxygen Delivery Method Room Air Intake Visit Reasons: INP-RAMBO-LVM Intake Note: Patient presents for follow up RAMBO. Patient states just diagnosed with sleep apnea. Allergies No Known Allergies Allergy (Verified 12/20/22 14:04) HPI HPI Comments History of Present Illness Details 27 y/o male patient presents for new in-person visit for sleep consultation. Pt reports snoring, gasping arousals and witnessed apnea spells. He has difficulty staying sleep, wakes up constantly, and feels never rested. He reports daytime sleepiness and having difficulty driving when he come home from work. He uses Adderall 15 mg daily for ADD. Sleep questionnaire: Have you ever been diagnosed with a sleep disorder? No. Have you ever had a sleep study in the past? No. Have you ever been treated for a sleep disorder? No. Do you take medications for a sleep disorder? No. Do you snore? Yes. Do you wake up gasping at night? Yes, sometimes. Do you have episodes of apneas? Yes. If yes, are they witnessed? Yes, by his friend. Do you have episodes of nocturnal chest pain or dyspnea? Yes. Do you have difficulty initiating sleep? Yes. Do you have difficulty maintaining sleep? Yes. Do you wake up tired? Yes. Do you have headaches upon awakening? No. Do you wake up with dry mouth or throat? Yes. Do you have GERD? Yes. Do you have nocturia? No. Do you have nocturnal leg cramps? Yes. Do you have symptoms of restless legs? Yes. Do you act out your dreams? No, but having jerk movement. Sleep hygiene questionnaire: What is your usual sleep routine? Usual bedtime is at 10-11 pm; Usual wake up time is at 5 am. Do you take naps? Not usually. Is your sleep environment cool, dark, and quiet? Yes. Do you exercise? No. Do you take caffeine or other stimulants? Adderall daily. Do you use electronics in bed? Yes. What is your work schedule? 6 am to 3:30 pm. Hypersomnolence questionnaire: Do you have daytime tiredness or fatigue? Yes. Do you easily fall asleep when inactive? No. Have you ever had episodes of sudden weakness? No. Have you ever had episodes of sudden weakness associated with strong emotions? No. PFSH Medical History Hyperlipidemia Loss of libido History of chlamydia Witnessed apneic spells Loud snoring Difficulty concentrating Fatigue Erectile dysfunction History of COVID-19 Lumbar degenerative disc disease PTSD (post-traumatic stress disorder) Lumbar disc disease with radiculopathy ADD (attention deficit disorder) Surgical History No pertinent past surgical history Social History Housing: Apartment Patient Tobacco Use Status: Never used Tobacco e-Cigarette/Vaping Use: Never Used service: Yes Current occupational status: employed Cognitive needs: No Hearing needs: No Vision needs: No Review of Systems Const All systems reviewed & are unremarkable except as noted in HPI and below ENT Reports Normal hearing present Neuro Reports Normal hearing present Physical Exam Vital Signs: Last Vital Signs Pulse 85 12/20/22 13:11 BP 112/84 12/20/22 13:11 Pulse Ox 98 12/20/22 13:11 Oxygen Delivery Method Room Air 12/20/22 13:11 BMI result Body Mass Index 30.5 Const General: cooperative Nutritional Appearance: obese Orientation/consciousness: patient oriented x3 Neck Neck: Yes full ROM and Yes supple Resp Effort & Inspection: normal respiratory effort and able to speak in complete sentences Neuro General: patient oriented x3, gait normal and moves all extremities Cranial nerves: Yes Bilaterally intact EOM present, Yes Normal facial strength present, Yes Midline tongue present, Yes Symmetric palate elevation present, Yes Normal hearing present, Yes Ability to bilaterally rotate head present and Yes Ability to bilaterally elevate shoulders present Cognition (Neuro): normal cognition Gait exam (Neuro): Normal gait present Motor exam (neuro): 5/5 motor strength present throughout, Pronator motor function not present and no tremor noted Psych Appearance: grossly normal Mental Status: mental status grossly normal Speech and movement: Normal speech and movement present Attitude: cooperative Results AMB Urinalysis, Automated UA Leukoctes 0 Eriberto/uL Last Edit by Shania Brandon on 12/20/22 12:24 UA Nitrite Negative Last Edit by Shania Brandon on 12/20/22 12:24 UA Urobilinogen 0.2 mg/dL Last Edit by Shania Brandon on 12/20/22 12:24 UA Protein 0 mg/dL Last Edit by Shania Brandon on 12/20/22 12:24 UA pH 6.0 Last Edit by Shania Brandon on 12/20/22 12:24 UA Blood 0 Genaro/uL Last Edit by Shania Brandon on 12/20/22 12:24 UA Specific [place] 1.025 Last Edit by Shania Brandon on 12/20/22 12:24 UA Ketone Negative Last Edit by Shania Brandon on 12/20/22 12:24 UA Bilirubin 0 mg/dL Last Edit by Shania Brandon on 12/20/22 12:24 UA Glucose 0 mg/dL Last Edit by Shania Brandon on 12/20/22 12:24 Assessment & Plan Assessment & Plan (1) Excessive daytime sleepiness: Code(s): G47.19 - Other hypersomnia (2) Loud snoring: Code(s): R06.83 - Snoring (3) Witnessed apneic spells: Code(s): R06.81 - Apnea, not elsewhere classified Plan Pt is advised to undergo home sleep study to assess for sleep apnea. Will f/u with pt after study to discuss results and appropriate treatment options. Sleep hygiene education provided and advised limit electronic use before bedtime. Advised patient to take ferrous sulfate 325 mg q every other day with vitamin B complex with C for restless legs. Pt to call with any worsening concerns or questions. Orders: Orders RT home sleep study Today G47.19 - Other hypersomnia, R06.81 - Apnea, not elsewhere classified, R06.83 - Snoring, R53.83 - Other fatigue Medications: New ferrous sulfate 325 mg PO Q OTHER DAY 30 days 15 tabs 4RF B-complex with vitamin C 1 tab PO DAILY 30 days 30 tabs 6RF Coding Level of Care Code New Pt Level 3 (77741) Diagnoses Excessive daytime sleepiness G47.19 Loud snoring R06.83 Witnessed apneic spells R06.81
[2022-12-20 13:11] VITALS: BP 112/84; PULSE 85; O2SAT 98; BMI 30.5
== END 2022-12-20 13:39 | disposition home or self-care (01) ==
LOC: HO.HSMC 13:02
PROVIDERS: PCP Internal Medicine; Visit Provider Nurse Practitioner Family
DX: G47.19 Other hypersomnia (principal); R06.83 Snoring; R06.81 Apnea, not elsewhere classified
CPT/HCPCS: 99203

== ENCOUNTER 2023-02-21 14:24 | Outpatient (REF) | payer OTHER, SELFPAY ==
--- NOTE | ~2023-02-21 | MR_ITS ---
EXAMINATION: MR LUMBAR SPINE WITHOUT CONTRAST CLINICAL INFORMATION: Low back pain. Numbness in right foot. Bilateral leg pain. COMPARISON: None available. TECHNIQUE: Multiplanar, multisequence imaging was obtained. FINDINGS: VERTEBRAL BODIES AND PARASPINAL STRUCTURES: The marrow signal is within normal limits. There is reduced intradiscal signal and a mild posterior subluxation at the L4-L5 level. Mild anterolisthesis evident at the L5-S1 level with chronic L5 pars defects. The paraspinal soft tissues are normal. CONUS MEDULLARIS AND CAUDA EQUINE: The distal cord, conus tip, and cauda equina nerve roots are normal. SPINAL LEVELS: L1-L2: Minimal annular bulge. No central canal stenosis or foraminal narrowing. L2-L3: Well hydrated normal appearance of the disc. Mild facet arthropathy without foraminal encroachment. L3-L4: Mild facet arthrosis with a small juxta-articular synovial cyst posteriorly in the right side. No disc pathology, central canal stenosis, or foraminal narrowing. L4-L5: Posterior subluxation and right subarticular zone disc protrusion distorts the right ventrolateral aspect of the thecal sac and compresses the right L5 nerve root. Mild facet arthropathy and endplate spurring without foraminal encroachment or central canal stenosis. L5-S1: Chronic L5 pars defects and mild anterolisthesis with a posterior disc bulge and right subarticular zone annular fissure. No focal disc protrusion or central canal stenosis. Mild facet arthropathy and mild right foraminal narrowing. MR/MR lumbar spine wo con IMPRESSION: 1. Right subarticular zone disc protrusion at the L4-L5 level compressing the right L5 nerve root. Mild posterior subluxation and disc degeneration at this level. 2. Mild anterolisthesis at the L5-S1 level with chronic L5 pars defects and a mild disc bulge. No central canal stenosis. Mild right foraminal narrowing.
== END 2023-02-21 14:25 | disposition home or self-care (01) ==
LOC: HO.MRI 14:24
PROVIDERS: PCP Internal Medicine; Visit Provider Nurse Practitioner Family
DX: M51.36 Other intervertebral disc degeneration, lumbar region (principal)
CPT/HCPCS: 72148

== ENCOUNTER 2023-03-22 08:20 | Outpatient (REF) | payer OTHER, SELFPAY ==
--- NOTE | ~2023-03-22 | XR_ITS ---
EXAMINATION: Right knee and right foot. CLINICAL INDICATION: Injury of the right foot. COMPARISON: None. TECHNIQUE: Right knee 4 views. Right foot 3 views. FINDINGS: Right knee: The tricompartment joint space is normal. No visible acute fracture, dislocation or subluxation seen. No abnormal joint effusion suspected. There are no loose bodies. Right foot: The ankle mortise and subtalar joints are normal. There is no visible acute fracture, dislocation or subluxation seen. The soft tissues are normal. XR/XR foot RT 2V IMPRESSION: 1. Unremarkable right knee exam. 2. Unremarkable right foot exam.
--- NOTE | ~2023-03-22 | XR_ITS ---
EXAMINATION: Right knee and right foot. CLINICAL INDICATION: Injury of the right foot. COMPARISON: None. TECHNIQUE: Right knee 4 views. Right foot 3 views. FINDINGS: Right knee: The tricompartment joint space is normal. No visible acute fracture, dislocation or subluxation seen. No abnormal joint effusion suspected. There are no loose bodies. Right foot: The ankle mortise and subtalar joints are normal. There is no visible acute fracture, dislocation or subluxation seen. The soft tissues are normal. XR/XR knee RT 4V IMPRESSION: 1. Unremarkable right knee exam. 2. Unremarkable right foot exam.
[2023-03-26 14:13] LABS: Testosterone, Total 266 ng/dL (250-1100)
== END 2023-03-22 08:21 | disposition home or self-care (01) ==
LOC: HO.HMGCX 08:20
PROVIDERS: PCP Internal Medicine; Referring Provider Internal Medicine; Visit Provider Nurse Practitioner Family
DX: S99.921A Unspecified injury of right foot, initial encounter (principal); M25.561 Pain in right knee; R68.82 Decreased libido; R53.83 Other fatigue; X58.XXXA Exposure to other specified factors, initial encounter; Y93.9 Activity, unspecified; Y92.9 Unspecified place or not applicable; Y99.9 Unspecified external cause status
CPT/HCPCS: 36415; 73564; 73620; 84402; 84403

== ENCOUNTER 2023-03-22 08:34 | Outpatient (AMB) | payer OTHER, SELFPAY ==
--- NOTE | 2023-03-22 09:01 | AM.OFFWIN_ITS ---
Intake Vital Signs 3 03/22/23 09:05 Height 6 ft Weight 235 lb 6 oz BMI 31.9 BP 114/76 Blood Pressure Location Rt brachial Position Sitting Pulse 76 Pulse Source Pulse Oximeter Pulse Oximetry (%) 97 Oxygen Delivery Method Room Air Intake Visit Reasons: EST/right foot pain ([phone]) Intake Note: pt says he fell 4 ft on concrt slab and he hit the arch of his right foot 1 1/2 wks ago Patient Tobacco Use Status: Never used Tobacco Allergies No Known Allergies Allergy (Verified 03/22/23 09:03) Medication List - Last Reconciled 03/22/23 by Derek Gabriel MD B-complex with vitamin C 1 tab PO DAILY 30 days dextroamphetamine-amphetamine 10 mg (Adderall) 15 mg PO DAILY lorazepam 2 mg PO BEDTIME PRN metaxalone mg PO mirtazapine 30 mg PO BEDTIME naproxen 500 mg PO BID tadalafil (Cialis) 5 mg PO DAILY 90 days tadalafil (Cialis) 20 mg PO DAILY PRN 90 days Do you need a note to return to daycare/school/sports/work: No HPI EST/right foot pain ([phone]) 2 HPI0 Details Patient is 27-year-old gentleman came in today to be evaluated for right foot and right knee pain of 10 days' duration Patient says that he was not careful while on high surface about 3 ft tall and suddenly fell down on his right foot bending his right knee in words, since then he has been having pain when he walks plantar aspect of his foot and right knee. He tells me that right knee was swollen initially but now swelling has gone but still hurts to walk. Has been taking Advil or naproxen which does help Review system: There is no nausea vomiting headache no fever no chills On examination he is tender plantar aspect of right foot, and below patella right knee, range of motion is limited due to discomfort. Plan: I am ordering x-rays of his foot and right knee, I have also sent diclofenac 75 mg to be taken b.i.d. with food Patient was notified to hold any other pain medication especially Advil and naproxen while taking this medication. Follow-up PCP [facility] Medical History Hyperlipidemia Loss of libido History of chlamydia Witnessed apneic spells Loud snoring Difficulty concentrating Fatigue Erectile dysfunction History of COVID-19 Lumbar degenerative disc disease PTSD (post-traumatic stress disorder) Lumbar disc disease with radiculopathy ADD (attention deficit disorder) Surgical History No pertinent past surgical history Social History Housing: Apartment Patient Tobacco Use Status: Never used Tobacco e-Cigarette/Vaping Use: Never Used service: Yes Current occupational status: employed Cognitive needs: No Hearing needs: No Vision needs: No Review of Systems Const All systems reviewed & are unremarkable except as noted in HPI and below Physical Exam Vital Signs: Last Vital Signs Pulse 76 03/22/23 09:05 BP 114/76 03/22/23 09:05 Pulse Ox 97 03/22/23 09:05 Oxygen Delivery Method Room Air 03/22/23 09:05 BMI result Body Mass Index 31.9 Const General: no acute distress Orientation/consciousness: patient oriented x3 Eyes General: appearance normal, both eyes and all related structures Resp Effort & Inspection: normal respiratory effort and able to speak in complete sentences Auscultation: clear to auscultation bilaterally Cardio Other: S1 S2 Neuro General: patient oriented x3 Extrem Elbow/forearm/wrist images: 2 1. Tender to palpation 2. Tender to palpation Ankle/foot/toe images: 2 1. Tender to palpation Psych Mental Status: mental status grossly normal Assessment & Plan Assessment & Plan (1) Right foot injury: Code(s): S99.921A - Unspecified injury of right foot, initial encounter Qualifiers: Encounter type: initial encounter Qualified Code(s): S99.921A - Unspecified injury of right foot, initial encounter (2) Foot pain, right: Code(s): M79.671 - Pain in right foot (3) Right knee injury: Code(s): S89.91XA - Unspecified injury of right lower leg, initial encounter Qualifiers: Encounter type: initial encounter Qualified Code(s): S89.91XA - Unspecified injury of right lower leg, initial encounter (4) Knee pain, right: Code(s): M25.561 - Pain in right knee Qualifiers: Chronicity: acute Qualified Code(s): M25.561 - Pain in right knee Plan Patient is 27-year-old gentleman came in today to be evaluated for right foot and right knee pain of 10 days' duration Patient says that he was not careful while on high surface about 3 ft tall and suddenly fell down on his right foot bending his right knee in words, since then he has been having pain when he walks plantar aspect of his foot and right knee. He tells me that right knee was swollen initially but now swelling has gone but still hurts to walk. Has been taking Advil or naproxen which does help Review system: There is no nausea vomiting headache no fever no chills On examination he is tender plantar aspect of right foot, and below patella right knee, range of motion is limited due to discomfort. Plan: I am ordering x-rays of his foot and right knee, I have also sent diclofenac 75 mg to be taken b.i.d. with food Patient was notified to hold any other pain medication especially Advil and naproxen while taking this medication. Follow-up PCP Orders: Orders 2 XR foot RT 2V Today M79.671 - Pain in right foot, S99.921A - Unspecified injury of right foot, initial encounter XR knee RT 2V Today M25.561 - Pain in right knee, S89.91XA - Unspecified injury of right lower leg, initial encounter Medications: New 2 diclofenac sodium 75 mg PO BID 10 days 20 tabs 0RF pain Coding Level of Care Code Est Pt Level 4 (85306) Diagnoses Injury of right foot, initial encounter S99.921A Encounter type: initial encounter Foot pain, right M79.671 Injury of right knee, initial encounter S89.91XA Encounter type: initial encounter Acute pain of right knee M25.561 Chronicity: acute
[2023-03-22 09:05] VITALS: BP 114/76; PULSE 76; O2SAT 97; BMI 31.9
== END 2023-03-22 09:31 | disposition home or self-care (01) ==
PROVIDERS: PCP Internal Medicine; Visit Provider Internal Medicine
DX: S99.921A Unspecified injury of right foot, initial encounter (principal); M79.671 Pain in right foot; S89.91XA Unspecified injury of right lower leg, initial encounter; M25.561 Pain in right knee
CPT/HCPCS: 99214

== ENCOUNTER 2023-03-31 09:00 | Outpatient (AMB) | payer OTHER, SELFPAY ==
--- NOTE | 2023-03-31 09:07 | MHC.OFFVIS ---
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 Allergies No Known Allergies Allergy (Verified 03/22/23 09:03) [facility] Medical History Hyperlipidemia Loss of libido History of chlamydia Witnessed apneic spells Loud snoring Difficulty concentrating Fatigue Erectile dysfunction History of COVID-19 Lumbar degenerative disc disease PTSD (post-traumatic stress disorder) Lumbar disc disease with radiculopathy ADD (attention deficit disorder) Surgical History No pertinent past surgical history Social History Housing: Apartment Patient Tobacco Use Status: Never used Tobacco e-Cigarette/Vaping Use: Never Used service: Yes Current occupational status: employed Cognitive needs: No Hearing needs: No Vision needs: No Assessment & Plan Assessment & Plan (1) Lumbar degenerative disc disease: Code(s): M51.36 - Other intervertebral disc degeneration, lumbar region Plan Dear Isidro, Thank you for referring Mr Mehta to our office today. He is a 27-year-old gentleman who is active in the [employer], who has had back issues going back to 2018. For the most part, he has back pain every day. It is centered in his lower lumbar area off to the right and will radiate down his leg. He will occasionally get feelings of weakness in his foot when he is going up stairs like he will trip on a step. Occasionally his foot will go numb as well. The symptoms have steadily gotten worse over time and are on and off but are an every day part of his life. He takes ibuprofen twice a day most days of the week. He had to stop doing any kind of physical activity other than some isolated weight exercises and core exercises. He has been doing physical therapy actively on and off for the last 5 years. He did undergo cortisone injection in [place] [facility] [employer] a number of years ago and that did give him good relief. His job in the [employer] will aggravate his symptoms and caused him to experience increased amount of pain. Before he got the air [employer] he really did not have much in the way of back discomfort but things have steadily escalated over time. He has been told in the past he has bulging discs. PMH: PTSD, anxiety and depression Social hx: He does not smoke, drink or use any marijuana or recreational drugs Medications: Lorazepam and mirtazapine Allergies: No known drug allergies Physical exam: Awake alert oriented no acute distress, he has full strength of bilateral lower extremities., normal gait Imaging review: Lumbar MRI done here at [place] shows 2 problem areas in the lower lumbar spine. Specifically on the right at L4-5 he has a herniated disc compressing the right L5 nerve root. At L5-S1 there is a slight anterior listhesis and I suspect a pars defect with degenerative disc disease at L5-S1. 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 Occasional weakness of his right foot as well. He has chronic back pain daily and will take ibuprofen twice a day for most days of the week. His active duty responsibilities do seem to aggravate his pain and make things worse. He is continually on and off rehabilitating his back with physical therapy and avoiding stressors. He did have an epidural injection when he was in [facility] and that seemed to help a lot. I think it is reasonable to repeat that injection and I can coordinate this here at [place]. He has a lot of degeneration for such a young gentleman. At this point the symptoms are not to the level where I think he need surgery, but if things continue to progress he may ultimately end up needing a microdiskectomy or spinal fusion depending on his presentation. I told him he should avoid stressors and heavy lifting. I encouraged him to continue to do core exercises and strengthening. I will refer him up to our pain management colleagues for an epidural. He will call us down the road if things change. Thank you for allowing us to care for your patient. The total time spent with this visit with this patient was 45 minutes reviewing history, physical exam, lumbar imaging review, and implementation of treatment plan or further diagnostic testing Mil Castillo MD,PhD [facility] Orders: Referrals Physiatry Referral M51.36 - Other intervertebral disc degeneration, lumbar region Coding Level of Care Code New Pt Level 4 (23990) Diagnoses Lumbar degenerative disc disease M51.36
== END 2023-03-31 09:29 | disposition home or self-care (01) ==
PROVIDERS: PCP Internal Medicine; Referring Provider Nurse Practitioner Family; Visit Provider Physician Assistant
DX: M51.36 Other intervertebral disc degeneration, lumbar region (principal)
CPT/HCPCS: 99204

== ENCOUNTER → 2023-03-31 09:00 | Outpatient (BNVA) | payer OTHER, SELFPAY | PROVIDERS: PCP Internal Medicine; Referring Provider Nurse Practitioner Family; Visit Provider Physician Assistant | DX: M51.36 Other intervertebral disc degeneration, lumbar region (principal) | CPT/HCPCS: 99202 ==

== ENCOUNTER 2023-04-05 10:46 | Outpatient (AMB) | payer OTHER, SELFPAY ==
--- NOTE | 2023-04-05 10:47 | A.OFFVIS_ITS ---
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: No Accompanied by: Self / Same As Patient Allergies No Known Allergies Allergy (Verified 04/05/23 12:05) Medication List - Last Reconciled 04/05/23 by GAVIN Pemberton B-complex with vitamin C 1 tab PO DAILY 30 days clomiphene citrate 100 mg (2 x 50 mg) PO DAILY 7 days dextroamphetamine-amphetamine 15 mg 1 tab PO DAILY diclofenac sodium 75 mg PO BID 10 days lorazepam 2 mg PO BEDTIME PRN metaxalone mg PO mirtazapine 45 mg PO BEDTIME naproxen 500 mg PO BID tadalafil (Cialis) 5 mg PO DAILY 90 days tadalafil (Cialis) 20 mg PO DAILY PRN 90 days HPI HPI Comments History of Present Illness Details Naseem is a very pleasant 27-year-old male patient of Dr. Miles. He has a past medical history of PTSD, lumbar disc disease with radiculopathy, ADD, anxiety, and depression. He presents to the office today for follow-up. Of note, patient was seen approximately 3 months ago at which time he was started on low-dose Cialis. In discussion with the patient today he reports to be doing and feeling well. Recent labs reviewed with the patient today. When asked he continues to report low libido, fatigue, and erectile dysfunction. He does reports some/very mild improvement with low-dose Cialis and as needed dosaging one hour prior to sexual activity. Labs are as follows: 12/26 TSH--1.60 FSH--2.7 Estradiol--13 LH--5.9 Prolactin--7.6 SHBG--19 Total testosterone 10/26--378, 12/26--297, 03/29--256 Free testosterone 10/26--86.6, 12/26--58.5, 03/29--50.0 He reports over the last 3 years to be having ongoing issues with fatigue, low libido, and erectile dysfunction. He reports noting despite adequate sleep of 8-10 hours per night he still feels fatigued upon wakening. He discusses his ongoing issues with his major depression. He discusses going to therapy. He reports having had multiple sleep studies in the past however has not been diagnosed with sleep apnea despite his snoring. When asked patient denies any bothersome urinary issues at this time. He denies urinary urgency, urinary frequency, incontinence, nocturia, hematuria, dysuria, foul smelling urine, changes to urinary stream, flank pain, fever, and or chills. He is happy with his current voiding parameters. In office urinalysis results reviewed with the patient today. Labs reviewed with Dr. Cat for further guidance in plan of care given testosterone continues to slowly decrease. Will trial Clomid 100 mg daily x7 days and reassess testosterone in LH on the 8th day in attempt to increase testosterone without compromising fertility. He otherwise offers no issues or concerns at this time. [facility] Medical History Hyperlipidemia Loss of libido History of chlamydia Witnessed apneic spells Loud snoring Difficulty concentrating Fatigue Erectile dysfunction History of COVID-19 Lumbar degenerative disc disease PTSD (post-traumatic stress disorder) Lumbar disc disease with radiculopathy ADD (attention deficit disorder) Surgical History No pertinent past surgical history Social History Housing: Apartment Patient Tobacco Use Status: Never used Tobacco e-Cigarette/Vaping Use: Never Used service: Yes Current occupational status: employed Cognitive needs: No Hearing needs: No Vision needs: No Review of Systems Const Reports no additional complaints Eyes Reports no additional complaints ENT Reports no additional complaints Card Reports as per HPI Resp Reports as per HPI GI Reports no additional complaints Reports as per HPI Musc Reports as per HPI Neuro Reports as per HPI Psych Reports as per HPI Endo Reports no additional complaints Masood/Lymph Reports no additional complaints Aller/Immun Reports no additional complaints Physical Exam Const General: cooperative, healthy appearing, comfortable, no acute distress, well developed, alert and awake Orientation/consciousness: patient oriented x3 Limitations: no limitations HEENT Head: Yes normal to inspection, Yes normocephalic and Yes atraumatic Ears: hearing grossly normal bilaterally Eyes General: appearance normal, both eyes and all related structures Neck Neck: Yes normal visual inspection and Yes trachea midline Chest Chest palpation & inspection: normal inspection of the chest Resp Effort & Inspection: normal respiratory effort and able to speak in complete sentences Cardio Rate: regular rate GI Inspection: Yes normal to inspection General: Yes no CVA tenderness Back/Spine/Pelvis Back: no CVA tenderness Skin General skin exam: no rashes or lesions noted Neuro General: patient oriented x3 Extrem General: Yes normal to inspection Psych Appearance: grossly normal and well kempt Mental Status: mental status grossly normal Speech and movement: Normal speech and movement present and Clear speech present Affect: normal affect Attitude: cooperative Thought process: Normal thought process present Thought content: Normal thought content present Insight: Fair insight present (Psych) Judgement: Fair judgement present (Psych) Results AMB Urinalysis, Automated UA Leukoctes 15 Eriberto/uL Last Edit by [employer] on 04/05/23 11:01 UA Nitrite Negative Last Edit by [employer] on 04/05/23 11:01 UA Urobilinogen 0.2 mg/dL Last Edit by [employer] on 04/05/23 11:01 UA Protein 15 mg/dL Last Edit by [employer] on 04/05/23 11:01 UA pH 6.0 Last Edit by [employer] on 04/05/23 11:01 UA Blood 0 Genaro/uL Last Edit by [employer] on 04/05/23 11:01 UA Specific Bronson 1.030 Last Edit by [employer] on 04/05/23 11:01 UA Ketone Negative Last Edit by [employer] on 04/05/23 11:01 UA Bilirubin 0 mg/dL Last Edit by [employer] on 04/05/23 11:01 UA Glucose 0 mg/dL Last Edit by [employer] on 04/05/23 11:01 Results Reviewed Results Reviewed: Laboratory Last Values Urine pH (Auto) 6.0 04/05/23 10:54 Specific Bronson (Auto) 1.030 04/05/23 10:54 Urine Protein (Auto) 15 mg/dL 04/05/23 10:54 Glucose (UA)(Auto) 0 mg/dL 04/05/23 10:54 Urine Ketones (Auto) Negative 04/05/23 10:54 Urine Blood (Auto) 0 Genaro/uL 04/05/23 10:54 Urine Nitrite (Auto) Negative 04/05/23 10:54 Urine Bilirubin (Auto) 0 mg/dL 04/05/23 10:54 Urine Urobilinogen (Auto) 0.2 mg/dL 04/05/23 10:54 Leukocyte Esterase (Auto) 15 Eriberto/uL 04/05/23 10:54 Assessment & Plan Assessment & Plan (1) Loss of libido: Code(s): R68.82 - Decreased libido (2) Fatigue: Code(s): R53.83 - Other fatigue (3) Erectile dysfunction: Code(s): N52.9 - Male erectile dysfunction, unspecified Plan In office urinalysis results reviewed with the patient today. He denies any bothersome urinary issues. He reports be happy with current voiding parameters. Continue 5 mg of Cialis daily and on demand dosing for sexual activity. Start Clomid as discussed and prescribed. Recent testosterone results reviewed with the patient today; as noted above. Discussed importance of taking medication as prescribed and having labs performed upon completion of Clomid Will obtain testosterone and LH for further assessment evaluation status post completion of Clomid. Follow-up in 1 month with labs to be completed prior; or sooner with any issues, concerns, and or questions. Orders: Orders AMB Urinalysis Automated Today Z13.9 - Encounter for screening, unspecified Lutenizing Hormone Today N52.9 - Male erectile dysfunction, unspecified Testosterone, Free/Total Today N52.9 - Male erectile dysfunction, unspecified Medications: New clomiphene citrate Take 2 tablets daily for 7 days and complete lab work on day 8 [facility] DR33 [id number] 100 mg (2 x 50 mg) PO DAILY 7 days 14 tabs 0RF E29.1 - Testicular hypofunction, R79.89 - Other specified abnormal findings of blood chemistry Changed From tadalafil (Cialis) BIN [id number] [facility] DR33 5 mg PO DAILY 90 days 90 tabs 0RF R68.82 - Decreased libido To tadalafil (Cialis) [id number] [facility] [id number] Member [id number] 5 mg PO DAILY 90 days 90 tabs 2RF R68.82 - Decreased libido Refilled tadalafil (Cialis) administer approximately 30min before sexual activity; do not use more than 1 dose per 24hrs BIN [id number] [facility] DR33 20 mg PO DAILY PRN 30 tabs 1RF sexual activity 90 days tadalafil (Cialis) administer approximately 30min before sexual activity; do not use more than 1 dose per 24hrs BIN [id number] [facility] DR33 20 mg PO DAILY 90 days PRN 30 tabs 1RF sexual activity Patient Instructions: The patient had an opportunity to ask questions regarding the treatment plan. All questions were answered. Physical exam, labs, and imaging were discussed and reviewed in detail. As well as risks, benefits, and discussion of treatment choices. No major barriers to understanding were identified. The patient expressed understanding and agreement with the above treatment plan. The patient was made aware they should contact our office by phone for worsening of their current condition, the appearance of new symptoms, or with any questions or concerns. Compliance is encouraged with any medications and follow up testing that is ordered. It is a privilege to be allowed the opportunity to participate in? your urological care.? Again, if you have any questions or concerns If you have any questions or concerns please do not hesitate to contact me. The office is [phone]. This note is constructed using voice recognition software. While every effort has been made to ensure accuracy yarn wrapper errors may have been included. Yours sincerely, GAVIN Pemberton Coding Level of Care Code Est Pt Level 4 (49563) Diagnoses Loss of libido R68.82 Fatigue R53.83 Erectile dysfunction N52.9
== END 2023-04-05 11:37 | disposition home or self-care (01) ==
PROVIDERS: PCP Internal Medicine; Visit Provider Nurse Practitioner Family
DX: R68.82 Decreased libido (principal); R53.83 Other fatigue; N52.9 Male erectile dysfunction, unspecified
CPT/HCPCS: 99214

== ENCOUNTER → 2023-04-05 10:46 | Outpatient (BNVA) | payer OTHER, SELFPAY | PROVIDERS: PCP Internal Medicine; Visit Provider Nurse Practitioner Family | DX: R68.82 Decreased libido (principal); N52.9 Male erectile dysfunction, unspecified; R53.83 Other fatigue; Z79.899 Other long term (current) drug therapy | CPT/HCPCS: 81003; 99212 ==

== ENCOUNTER 2023-04-12 10:51 | Outpatient (AMB) | payer OTHER, SELFPAY ==
--- NOTE | 2023-04-12 10:54 | A.OFFVIS_ITS ---
Intake Vital Signs 04/12/23 10:55 Height 6 ft Weight 225 lb BMI 30.5 BP 110/62 Blood Pressure Location Lt brachial Position Sitting Respiration 12 Pulse 73 Pulse Source Pulse Oximeter Pulse Oximetry (%) 96 Oxygen Delivery Method Room Air Intake Visit Reasons: intervertebral disc degeneration, lumbar region Allergies No Known Allergies Allergy (Verified 04/12/23 10:58) Medication List - Last Reconciled 04/12/23 by Ally Leach LPN clomiphene citrate 100 mg (2 x 50 mg) PO DAILY 7 days dextroamphetamine-amphetamine 15 mg 1 tab PO DAILY diclofenac sodium 75 mg PO BID 10 days lorazepam 2 mg PO BEDTIME PRN metaxalone mg PO mirtazapine 45 mg PO BEDTIME tadalafil (Cialis) 5 mg PO DAILY 90 days tadalafil (Cialis) 20 mg PO DAILY PRN 90 days HPI intervertebral disc degeneration, lumbar region HPI Details 27-year-old male who presents today to t he office for an evaluation of intervertebral disc degeneration of lumbar spine. He is active in the [employer] and has had back issues since 2018. He tried to lift 45 lbs. of plates off the ground and twisted and injured his back. He reports chronic low back pain now for about 4-5 years, with intermittent right leg pain, numbness of his foot, and occasional weakness of his right foot as well. It is an aching, burning, stabbing sensation in the lower back that radiates down both lower extremities; right more than the left. The pain score is 5 -6 /10 at night. He reports bilateral leg pain and his right side is worse than left side. He describes his pain as constant. 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 He is continually on and off rehabilitating his back with physical therapy for past six years. He did have an epidural injection when he was in [facility], and that seemed to help a lot. He takes ibuprofen B.I.D. The chiropractic manipulation provides temporarily and TENS units off and on also provided temporary relief. COUNTS INCLUDE 234 BEDS AT THE [facility] Medical History Hyperlipidemia Loss of libido History of chlamydia Witnessed apneic spells Loud snoring Difficulty concentrating Fatigue Erectile dysfunction History of COVID-19 Lumbar degenerative disc disease PTSD (post-traumatic stress disorder) Lumbar disc disease with radiculopathy ADD (attention deficit disorder) Surgical History No pertinent past surgical history Social History Housing: Apartment Patient Tobacco Use Status: Never used Tobacco e-Cigarette/Vaping Use: Never Used service: Yes Current occupational status: employed Cognitive needs: No Hearing needs: No Vision needs: No Review of Systems Const All systems reviewed & are unremarkable except as noted in HPI and below Physical Exam Vital Signs: Last Vital Signs Pulse 73 04/12/23 10:55 Resp 12 04/12/23 10:55 BP 110/62 04/12/23 10:55 Pulse Ox 96 04/12/23 10:55 Oxygen Delivery Method Room Air 04/12/23 10:55 BMI result Body Mass Index 30.5 General: Appears afebrile. Alert and oriented. Mood and affect appropriate. Follows and participates in conversation appropriately. Respiratory effort is unlabored. Able to transition from sit to stand unassisted. Ambulates with bilaterally normal heel strike and toe off. Straight leg raise is positive on both sides. Results Reviewed Results Reviewed: 02/21/23: MR LUMBAR SPINE WITHOUT CONTRAST FINDINGS: VERTEBRAL BODIES AND PARASPINAL STRUCTURES: The marrow signal is within normal limits. There is reduced intradiscal signal and a mild posterior subluxation at the L4-L5 level. Mild anterolisthesis evident at the L5-S1 level with chronic L5 pars defects. The paraspinal soft tissues are normal. CONUS MEDULLARIS AND CAUDA EQUINE: The distal cord, conus tip, and cauda equina nerve roots are normal. SPINAL LEVELS: L1-L2: Minimal annular bulge. No central canal stenosis or foraminal narrowing. L2-L3: Well hydrated normal appearance of the disc. Mild facet arthropathy without foraminal encroachment. L3-L4: Mild facet arthrosis with a small juxta-articular synovial cyst posteriorly in the right side. No disc pathology, central canal stenosis, or foraminal narrowing. L4-L5: Posterior subluxation and right subarticular zone disc protrusion distorts the right ventrolateral aspect of the thecal sac and compresses the right L5 nerve root. Mild facet arthropathy and endplate spurring without foraminal encroachment or central canal stenosis. L5-S1: Chronic L5 pars defects and mild anterolisthesis with a posterior disc bulge and right subarticular zone annular fissure. No focal disc protrusion or central canal stenosis. Mild facet arthropathy and mild right foraminal narrowing. IMPRESSION: 1. Right subarticular zone disc protrusion at the L4-L5 level compressing the right L5 nerve root. Mild posterior subluxation and disc degeneration at this level. 2. Mild anterolisthesis at the L5-S1 level with chronic L5 pars defects and a mild disc bulge. No central canal stenosis. Mild right foraminal narrowing. Assessment & Plan Assessment & Plan (1) Lumbar radiculopathy: Code(s): M54.16 - Radiculopathy, lumbar region Plan We discussed epidural cortisone injections vs. PRP injections as possible treatment options. We will schedule him for a right L4-5 interlaminar NITHYA. Discussed the risks and benefits of the procedure with the patient in detail. All questions were answered. The patient is on board with the plan. Justification for interventional therapy: ? Patient with average pain > 6/10 ? Patient has exhausted conservative therapy Scribed for Dr. Up by Neel Snow, medical education specialist, on 04/12/2023. I, Dr. Up, have personally reviewed and agree with the information entered by the scribe. Coding Level of Care Code New Pt Level 4 (83157) Diagnoses Lumbar radiculopathy M54.16
[2023-04-12 10:55] VITALS: BP 110/62; PULSE 73; RESP 12; O2SAT 96; BMI 30.5
== END 2023-04-12 11:27 | disposition home or self-care (01) ==
LOC: HO.PMC 10:51
PROVIDERS: PCP Internal Medicine; Referring Provider Neurological Surgery; Visit Provider Internal Medicine
DX: M54.16 Radiculopathy, lumbar region (principal)
CPT/HCPCS: 99204

== ENCOUNTER → 2023-04-12 10:51 | Outpatient (BNVA) | payer OTHER, SELFPAY | PROVIDERS: PCP Internal Medicine; Referring Provider Neurological Surgery; Visit Provider Internal Medicine | DX: M54.16 Radiculopathy, lumbar region (principal) | CPT/HCPCS: 99202 ==

== ENCOUNTER 2023-04-13 09:56 | Outpatient (REF) | payer OTHER, SELFPAY ==
[2023-04-14 18:58] LABS: Lutenizing Hormone 8.5 mIU/mL (1.5-9.3)
[2023-04-18 13:29] LABS: Testosterone, Free 135.1 pg/mL (35.0-155.0); Testosterone, Total 606 ng/dL (250-1100)
== END 2023-04-13 09:57 | disposition home or self-care (01) ==
LOC: HO.HMGCLDS 09:56
PROVIDERS: PCP Internal Medicine; Visit Provider Nurse Practitioner Family
DX: N52.9 Male erectile dysfunction, unspecified (principal)
CPT/HCPCS: 36415; 83002; 84402; 84403

== ENCOUNTER 2023-05-02 08:40 | Outpatient (AMB) | payer OTHER, SELFPAY ==
--- NOTE | 2023-05-02 08:47 | MHC.OFFVIS ---
Intake Intake Visit Reasons: 1m follow/labs Intake Note: Patient presents today for follow up for Low Libido and Lab Results Total Testosterone: 606 Free Testosterone: 135.1 Urology Medications: Cialis, Clomid Blood Thinner: none Patient want to discuss clomiphene citrate today, he was prescribed for 8 days only. Preservationist Required: No Accompanied by: Self / Same As Patient Allergies No Known Allergies Allergy (Verified 05/02/23 22:53) Medication List - Last Reconciled 05/02/23 by JULIANNE Pemberton- clomiphene citrate 50 mg PO .MWF 30 days dextroamphetamine-amphetamine 15 mg 1 tab PO DAILY diclofenac sodium 75 mg PO BID 10 days lorazepam 2 mg PO BEDTIME PRN metaxalone mg PO mirtazapine 45 mg PO BEDTIME tadalafil (Cialis) 5 mg PO DAILY 90 days tadalafil (Cialis) 20 mg PO DAILY PRN 90 days HPI HPI Comments History of Present Illness Details Naseem is a very pleasant 27-year-old male patient of Dr. Miles. He has a past medical history of PTSD, lumbar disc disease with radiculopathy, ADD, anxiety, and depression. He presents to the office today for follow-up. Of note, patient was seen approximately 1 month ago at which time he was started on clomiphene for clomiphene stimulation. In discussion with the patient today he reports to be doing and feeling well. Recent labs reviewed with the patient today and trended below. When asked he continues to report low libido, fatigue, and erectile dysfunction. Discussed potential causes of the symptoms patient is experiencing/reporting. 12/26 TSH--1.60 FSH--2.7 Estradiol--13 LH--5.9, 04/29 8.5 Prolactin--7.6 SHBG--19 Total testosterone 10/26--378, 12/26--297, 03/29--256, 04/29--606 Free testosterone 10/26--86.6, 12/26--58.5, 03/29--50.0, 04/29--135.1 He reports over the last 3 years to be having ongoing issues with fatigue, low libido, and erectile dysfunction. He reports noting despite adequate sleep of 8-10 hours per night he still feels fatigued upon wakening. He discusses his ongoing issues with his major depression. He discusses going to therapy. He reports having had multiple sleep studies in the past however has not been diagnosed with sleep apnea despite his snoring however is undergoing another sleep study soon. When asked patient denies any bothersome urinary issues at this time. He denies urinary urgency, urinary frequency, incontinence, nocturia, hematuria, dysuria, foul smelling urine, changes to urinary stream, flank pain, fever, and or chills. He is happy with his current voiding parameters. In office urinalysis results reviewed with the patient today. He discussed positive results with increase in FSH, testosterone, and free testosterone indicating viable testicular function. [facility] Medical History Hyperlipidemia Loss of libido History of chlamydia Witnessed apneic spells Loud snoring Difficulty concentrating Fatigue Erectile dysfunction History of COVID-19 Lumbar degenerative disc disease PTSD (post-traumatic stress disorder) Lumbar disc disease with radiculopathy ADD (attention deficit disorder) Surgical History No pertinent past surgical history Social History Housing: Apartment Patient Tobacco Use Status: Never used Tobacco e-Cigarette/Vaping Use: Never Used service: Yes Current occupational status: employed Cognitive needs: No Hearing needs: No Vision needs: No Review of Systems Const Reports no additional complaints Eyes Reports no additional complaints ENT Reports no additional complaints Card Reports as per [facility] Resp Reports as per [facility] GI Reports no additional complaints Reports as per HPI Musc Reports as per HPI Neuro Reports as per HPI Psych Reports as per HPI Endo Reports no additional complaints Masood/Lymph Reports no additional complaints Aller/Immun Reports no additional complaints Physical Exam Const General: cooperative, healthy appearing, comfortable, no acute distress, well developed, alert and awake Orientation/consciousness: patient oriented x3 Limitations: no limitations HEENT Head: Yes normal to inspection, Yes normocephalic and Yes atraumatic Ears: hearing grossly normal bilaterally Eyes General: appearance normal, both eyes and all related structures Neck Neck: Yes normal visual inspection and Yes trachea midline Chest Chest palpation & inspection: normal inspection of the chest Resp Effort & Inspection: normal respiratory effort and able to speak in complete sentences Cardio Rate: regular rate GI Inspection: Yes normal to inspection General: Yes no CVA tenderness Back/Spine/Pelvis Back: no CVA tenderness Skin General skin exam: no rashes or lesions noted Neuro General: patient oriented x3 Extrem General: Yes normal to inspection Psych Appearance: grossly normal and well kempt Mental Status: mental status grossly normal Speech and movement: Normal speech and movement present and Clear speech present Affect: normal affect Attitude: cooperative Thought process: Normal thought process present Thought content: Normal thought content present Insight: Fair insight present (Psych) Judgement: Fair judgement present (Psych) Results AMB Urinalysis, Automated UA Leukoctes 0 Eriberto/uL Last Edit by Minna Valiente CMA on 05/02/23 09:02 UA Nitrite Negative Last Edit by Minna Valiente CMA on 05/02/23 09:02 UA Urobilinogen 0.2 mg/dL Last Edit by Minna Valiente CMA on 05/02/23 09:02 UA Protein 0 mg/dL Last Edit by Minna Valiente CMA on 05/02/23 09:02 UA pH 6.0 Last Edit by Minna Valiente CMA on 05/02/23 09:02 UA Blood 0 Genaro/uL Last Edit by Minna Valiente CMA on 05/02/23 09:02 UA Specific Buena 1.025 Last Edit by Minna Valiente CMA on 05/02/23 09:02 UA Ketone Negative Last Edit by Minna Valiente CMA on 05/02/23 09:02 UA Bilirubin 0 mg/dL Last Edit by Minna Valiente CMA on 05/02/23 09:02 UA Glucose 0 mg/dL Last Edit by Minna Valiente CMA on 05/02/23 09:02 Results Reviewed Results Reviewed: Laboratory Last Values Urine pH (Auto) 6.0 05/02/23 09:01 Specific Buena (Auto) 1.025 05/02/23 09:01 Urine Protein (Auto) 0 mg/dL 05/02/23 09:01 Glucose (UA)(Auto) 0 mg/dL 05/02/23 09:01 Urine Ketones (Auto) Negative 05/02/23 09:01 Urine Blood (Auto) 0 Genaro/uL 05/02/23 09:01 Urine Nitrite (Auto) Negative 05/02/23 09:01 Urine Bilirubin (Auto) 0 mg/dL 05/02/23 09:01 Urine Urobilinogen (Auto) 0.2 mg/dL 05/02/23 09:01 Leukocyte Esterase (Auto) 0 Eriberto/uL 05/02/23 09:01 Assessment & Plan Assessment & Plan (1) Loss of libido: Code(s): R68.82 - Decreased libido (2) Fatigue: Code(s): R53.83 - Other fatigue (3) Erectile dysfunction: Code(s): N52.9 - Male erectile dysfunction, unspecified Plan In office urinalysis results reviewed with the patient today. Recent testosterone, free testosterone, and LH results reviewed with the patient today; as noted above. Discussed positive results with clomiphene stimulation with increase in labs indicating viable testicular function; this was discussed at length. He denies any bothersome urinary issues. He reports be happy with current voiding parameters. Continue 5 mg of Cialis daily and on demand dosing for sexual activity. Start 50 mg of Clomiphene Monday as discussed Will obtain testosterone, free testosterone, FSH, LH, prolactin, SHBG, and estradiol in 3 months. Follow-up in 3 months with labs to be completed prior; or sooner with any issues, concerns, and or questions. Orders: Orders AMB Urinalysis Automated 05/02/23 R33.9 - Retention of urine, unspecified Follicle Stimulating Hormone 3 Months N52.9 - Male erectile dysfunction, unspecified, R68.82 - Decreased libido Lutenizing Hormone 3 Months N52.9 - Male erectile dysfunction, unspecified, R68.82 - Decreased libido Prolactin 3 Months N52.9 - Male erectile dysfunction, unspecified, R68.82 - Decreased libido Testosterone, Free/Total 3 Months R68.82 - Decreased libido Sex Hormone Binding Globulin 3 Months R68.82 - Decreased libido Estradiol Ultra Sensitive 3 Months E29.1 - Testicular hypofunction, R68.82 - Decreased libido Medications: Changed From clomiphene citrate Take 2 tablets daily for 7 days and complete lab work on day 8 RAUL N Group [facility] DR33 [id number] 100 mg (2 x 50 mg) PO DAILY 7 days 14 tabs 0RF E29.1 - Testicular hypofunction, R79.89 - Other specified abnormal findings of blood chemistry To clomiphene citrate Take 50mg three times per week BIN PCN Group [facility] DR33 [id number] 50 mg PO .MWF 30 days 14 tabs 3RF E29.1 - Testicular hypofunction, R79.89 - Other specified abnormal findings of blood chemistry Patient Instructions: The patient had an opportunity to ask questions regarding the treatment plan. All questions were answered. Physical exam, labs, and imaging were discussed and reviewed in detail. As well as risks, benefits, and discussion of treatment choices. No major barriers to understanding were identified. The patient expressed understanding and agreement with the above treatment plan. The patient was made aware they should contact our office by phone for worsening of their current condition, the appearance of new symptoms, or with any questions or concerns. Compliance is encouraged with any medications and follow up testing that is ordered. It is a privilege to be allowed the opportunity to participate in? your urological care.? Again, if you have any questions or concerns If you have any questions or concerns please do not hesitate to contact me. The office is [phone]. This note is constructed using voice recognition software. While every effort has been made to ensure accuracy volunteer services assistant errors may have been included. Yours sincerely, GAVIN Pemberton Coding Level of Care Code Est Pt Level 3 (37310) Diagnoses Loss of libido R68.82 Fatigue R53.83 Erectile dysfunction N52.9
== END 2023-05-02 09:31 | disposition home or self-care (01) ==
PROVIDERS: PCP Internal Medicine; Visit Provider Nurse Practitioner Family
DX: R68.82 Decreased libido (principal); R53.83 Other fatigue; N52.9 Male erectile dysfunction, unspecified
CPT/HCPCS: 99213

== ENCOUNTER → 2023-05-02 08:40 | Outpatient (BNVA) | payer OTHER, SELFPAY | PROVIDERS: PCP Internal Medicine; Visit Provider Nurse Practitioner Family | DX: R68.82 Decreased libido (principal); R53.83 Other fatigue; N52.9 Male erectile dysfunction, unspecified | CPT/HCPCS: 81003; 99212 ==

== ENCOUNTER 2023-05-11 06:20 | Outpatient (REF) | payer OTHER, SELFPAY ==
--- NOTE | ~2023-05-11 | FL_ITS ---
EXAMINATION: XR FLUOROSCOPY WITH IMAGES CLINICAL INFORMATION: Radiculopathy lumbar region COMPARISON: None available. TECHNIQUE: Fluoroscopy Supervised By: Lucy. Fluoroscopy Time: 0.1 Cumulative Dose: 3.75 mGy. DAP: 0.0481 Gycm2. Images: 2. FINDINGS: There are 2 digital images obtained with needle positioned posterior to L4-L5 disc level and contrast opacifying the epidural space. Visualized bones are grossly unremarkable. FL/FL guidance in treatment room IMPRESSION: Fluoroscopy was provided to referrer for pain management.
== END 2023-05-11 06:21 | disposition home or self-care (01) ==
LOC: CF 06:20
PROVIDERS: Visit Provider Internal Medicine
DX: M54.16 Radiculopathy, lumbar region (principal)
CPT/HCPCS: 62323; J3301; Q9967

== ENCOUNTER 2023-05-11 13:33 | Outpatient (AMB) | payer OTHER, SELFPAY ==
[2023-05-11 13:40] VITALS: BP 134/86; PULSE 68; RESP 20; O2SAT 96; BMI 34.6
--- NOTE | 2023-05-11 13:40 | MHC.OFFVIS ---
Intake Vital Signs 05/11/23 13:40 05/11/23 13:44 Height 6 ft Weight 255 lb BMI 34.6 BP 134/86 130/80 Blood Pressure Location Lt brachial Lt brachial Position Sitting Sitting Respiration 20 18 Pulse 68 72 Pulse Source Pulse Oximeter Pulse Oximeter Pulse Oximetry (%) 96 97 Oxygen Delivery Method Room Air Room Air Comment Pre-Op Post-Op Intake Visit Reasons: Right L4-L5 interlaminar NITHYA Allergies No Known Allergies Allergy (Verified 05/02/23 22:53) HPI Right L4-L5 interlaminar NITHYA HPI Details Patient presents for scheduled procedure. Denies any recent cough, cold, infection, fever or other significant changes in medical history since last office visit. PENDING SALE TO [facility] Medical History Hyperlipidemia Loss of libido History of chlamydia Witnessed apneic spells Loud snoring Difficulty concentrating Fatigue Erectile dysfunction History of COVID-19 Lumbar degenerative disc disease PTSD (post-traumatic stress disorder) Lumbar disc disease with radiculopathy ADD (attention deficit disorder) Surgical History No pertinent past surgical history Social History Housing: Apartment Patient Tobacco Use Status: Never used Tobacco e-Cigarette/Vaping Use: Never Used service: Yes Current occupational status: employed Cognitive needs: No Hearing needs: No Vision needs: No Physical Exam Vital Signs: Last Vital Signs Pulse 72 05/11/23 13:44 Resp 18 05/11/23 13:44 BP 130/80 05/11/23 13:44 Pulse Ox 97 05/11/23 13:44 Oxygen Delivery Method Room Air 05/11/23 13:44 BMI result Body Mass Index 34.6 Office Procedures Joint Injection/Drain Joint Injection/Drain Details: Interlaminar epidural steroid injection, L4-5, right parasaggital After obtaining written consent, pre-procedure blood pressure and heart rate were stable and recorded in the nursing record. The patient was placed in the prone position. The lumbar area was widely prepped with chloraprep and draped in sterile fashion. Fluoroscopic guidance was used to identify the desired interlaminar space and for needle placement. Subcutaneous 0.5% lidocaine was used to anesthetize the skin overlying the target. A 20-gauge Jain needle was advanced to the epidural space using loss of resistance to contrast technique under fluoroscopic AP and contralateral oblique views. There was no evidence of heme or CSF and no paresthesias were elicited with needle placement. Confirmation of epidural needle placement was performed with 1cc of omnipaque 180. Next 3 ml 0.5% lidocaine mixed with 80 mg triamcinolone was administered epidurally with no pain elicited on injection. The needle tract tubing was then cleared with 1 ml of 0.5% lidocaine. The needle was removed, skin cleansed and a sterile bandage was applied. The patient tolerated the procedure well and no complications were encountered. Following the procedure the patient's vital signs were stable. The patient was discharged home in good condition with post-procedural instructions. Time Out: Immediately prior to the procedure, the following was verbally confirmed that there is a signed consent form and that the correct patient, planned procedure, site and side are consistent with documentation and that necessary equipment and/or blood products are available prior to the start of the case. Complications: none EBL: <5 cc Coding 24835 - Caudal/Lumbar Epidural/Interlaminar with fluoroscopy Procedure code (CPT) selection complete Assessment & Plan Assessment & Plan (1) Lumbar radiculopathy: Code(s): M54.16 - Radiculopathy, lumbar region Plan Patient is status post right parasagittal interlaminar L4-5 NITHYA. Patient tolerated procedure well and was discharged home in stable condition with discharge instructions. All questions were answered. We will follow-up via telephone or in clinic to assess response to therapy. A follow-up appointment was made during today's visit. Orders: Orders FL guidance in treatment room Today M54.16 - Radiculopathy, lumbar region Coding Level of Care Code Procedure Only Diagnoses Lumbar radiculopathy M54.16 CPT Codes Coding - Joint 11: 81609 - Caudal/Lumbar Epidural/Interlaminar with fluoroscopy ([id number])
[2023-05-11 13:44] VITALS: BP 130/80; PULSE 72; RESP 18; O2SAT 97
== END 2023-05-11 14:19 | disposition home or self-care (01) ==
LOC: HO.PMCPRC 13:34
PROVIDERS: PCP Internal Medicine; Visit Provider Internal Medicine
DX: M54.16 Radiculopathy, lumbar region (principal)
CPT/HCPCS: 62323

== ENCOUNTER 2023-06-09 11:42 | Outpatient (AMB) | payer OTHER, SELFPAY ==
--- NOTE | 2023-06-09 11:46 | A.OFFVIS_ITS ---
Vital Signs 06/09/23 11:47 Height 6 ft Weight 255 lb BMI 34.6 BP 126/88 Blood Pressure Location Lt brachial Position Sitting Respiration 12 Pulse 82 Pulse Source Pulse Oximeter Pulse Oximetry (%) 97 Oxygen Delivery Method Room Air Intake Visit Reasons: s/p Right L4-L5 interlaminar NITHYA Allergies No Known Allergies Allergy (Verified 06/09/23 11:48) Medication List - Last Reconciled 06/09/23 by Ally Leach LPN clomiphene citrate 50 mg PO .MWF 30 days dextroamphetamine-amphetamine 15 mg 1 tab PO DAILY diclofenac sodium 75 mg PO BID 10 days lorazepam 2 mg PO BEDTIME PRN metaxalone mg PO mirtazapine 45 mg PO BEDTIME tadalafil (Cialis) 5 mg PO DAILY 90 days tadalafil (Cialis) 20 mg PO DAILY PRN 90 days HPI HPI s/p Right L4-L5 interlaminar NITHYA: Details: 27-year-old male who presents today to the office for a status post right L4-L5 interlaminar NITHYA. The patient reports 70% relief following the procedure. He reports noticeable residual lower back and buttock pain. He also reports muscle stiffness. 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 He had an MRI scan, which showed a pars defect in the spine. He also requested a note to change his job. Past procedures 05/11/23: Interlaminar epidural steroid injection, L4-5, right parasaggital: 60- 70% relief. [facility], [facility] Medical History Hyperlipidemia Loss of libido History of chlamydia Witnessed apneic spells Loud snoring Difficulty concentrating Fatigue Erectile dysfunction History of COVID-19 Lumbar degenerative disc disease PTSD (post-traumatic stress disorder) Lumbar disc disease with radiculopathy ADD (attention deficit disorder) Surgical History No pertinent past surgical history Social History Housing: Apartment Patient Tobacco Use Status: Never used Tobacco e-Cigarette/Vaping Use: Never Used service: Yes Current occupational status: employed Cognitive needs: No Hearing needs: No Vision needs: No Review of Systems Const All systems reviewed & are unremarkable except as noted in HPI and below Physical Exam Vital Signs: Last Vital Signs Pulse 82 06/09/23 11:47 Resp 12 06/09/23 11:47 BP 126/88 06/09/23 11:47 Pulse Ox 97 06/09/23 11:47 Oxygen Delivery Method Room Air 06/09/23 11:47 BMI result Body Mass Index 34.6 General: Appears afebrile. Alert and oriented. Mood and affect appropriate. Follows and participates in conversation appropriately. Respiratory effort is unlabored. Able to transition from sit to stand unassisted. Ambulates with bilaterally normal heel strike and toe off. Results Reviewed Results Reviewed: 02/21/2023: MR LUMBAR SPINE WITHOUT CONTRAST FINDINGS: VERTEBRAL BODIES AND PARASPINAL STRUCTURES: The marrow signal is within normal limits. There is reduced intradiscal signal and a mild posterior subluxation at the L4-L5 level. Mild anterolisthesis evident at the L5-S1 level with chronic L5 pars defects. The paraspinal soft tissues are normal. CONUS MEDULLARIS AND CAUDA EQUINE: The distal cord, conus tip, and cauda equina nerve roots are normal. SPINAL LEVELS: L1-L2: Minimal annular bulge. No central canal stenosis or foraminal narrowing. L2-L3: Well hydrated normal appearance of the disc. Mild facet arthropathy without foraminal encroachment. L3-L4: Mild facet arthrosis with a small juxta-articular synovial cyst posteriorly in the right side. No disc pathology, central canal stenosis, or foraminal narrowing. L4-L5: Posterior subluxation and right subarticular zone disc protrusion distorts the right ventrolateral aspect of the thecal sac and compresses the right L5 nerve root. Mild facet arthropathy and endplate spurring without foraminal encroachment or central canal stenosis. L5-S1: Chronic L5 pars defects and mild anterolisthesis with a posterior disc bulge and right subarticular zone annular fissure. No focal disc protrusion or central canal stenosis. Mild facet arthropathy and mild right foraminal narrowing. IMPRESSION: 1. Right subarticular zone disc protrusion at the L4-L5 level compressing the right L5 nerve root. Mild posterior subluxation and disc degeneration at this level. 2. Mild anterolisthesis at the L5-S1 level with chronic L5 pars defects and a mild disc bulge. No central canal stenosis. Mild right foraminal narrowing. Assessment & Plan Assessment & Plan (1) Lumbar radiculopathy: Code(s): M54.16 - Radiculopathy, lumbar region Category: Medical Plan I provided him with a work note advising him to avoid bending and twisting. I also advised him to incorporate long-term lifestyle changes to arrest the development of this degeneration at S1, secondary to pars defects. It was important to delay any kind of need for surgical intervention as much as possible.? I do not think he would benefit from further steroid injections. If his axial pain increases in the future, we can consider peripheral nerve stimulation or BVN ablation. He has started to have some early modic changes at the S1 superior endplate, but they are not pronounced yet. Follow up as needed. Scribed for Dr. Up by Neel Snow, associate medical director, on 06/09/2023. I, Dr. Up, have personally reviewed and agree with the information entered by the scribe.
[2023-06-09 11:47] VITALS: BP 126/88; PULSE 82; RESP 12; O2SAT 97; BMI 34.6
== END 2023-06-09 12:09 | disposition home or self-care (01) ==
PROVIDERS: PCP Internal Medicine; Visit Provider Internal Medicine
DX: M54.16 Radiculopathy, lumbar region (principal)
CPT/HCPCS: 99213

== ENCOUNTER → 2023-06-09 11:42 | Outpatient (BNVA) | payer OTHER, SELFPAY | PROVIDERS: PCP Internal Medicine; Visit Provider Internal Medicine | DX: M54.16 Radiculopathy, lumbar region (principal) | CPT/HCPCS: 99212 ==

== ENCOUNTER → 2023-07-18 08:56 | Outpatient (REF) | payer OTHER, SELFPAY | LOC: HO.SL 08:56 | PROVIDERS: PCP Internal Medicine; Visit Provider Nurse Practitioner Family | DX: R06.83 Snoring (principal); R53.83 Other fatigue | CPT/HCPCS: 95806 ==

== ENCOUNTER → 2023-07-18 09:11 | Outpatient (BNV) | payer OTHER, SELFPAY | PROVIDERS: PCP Internal Medicine; Visit Provider Psychiatry & Neurology Neurology | DX: R06.83 Snoring (principal) | CPT/HCPCS: 95806 ==

== ENCOUNTER 2023-07-27 08:18 | Outpatient (REF) | payer OTHER, SELFPAY ==
[2023-07-28 07:34] LABS: Sex Hormone Binding Globulin 24 nmol/L (10-50)
[2023-07-28 08:42] LABS: Follicle Stimulating Hormone 5.3 mIU/mL (1.4-12.8); Lutenizing Hormone 10.7 mIU/mL (1.5-9.3)
[2023-08-04 02:24] LABS: Estradiol Ultra Sensitive 29 pg/mL (< OR = 29)
[2023-08-07 12:59] LABS: Testosterone, Total 653 ng/dL (250-1100)
== END 2023-07-27 08:19 | disposition home or self-care (01) ==
LOC: HO.HMGCLDS 08:18
PROVIDERS: PCP Internal Medicine; Visit Provider Nurse Practitioner Family
DX: E29.1 Testicular hypofunction (principal); R68.82 Decreased libido; N52.9 Male erectile dysfunction, unspecified
CPT/HCPCS: 36415; 82670; 83001; 83002; 84146; 84270; 84402; 84403

== ENCOUNTER 2023-08-22 09:42 | Outpatient (AMB) | payer OTHER, SELFPAY ==
--- NOTE | 2023-08-22 09:42 | A.OFFVIS_ITS ---
Intake Visit Reasons: follow up/Labs Intake Note: Patient presents today for follow up on: Low Libido and Lab Results Urology Medications: Vestalis, Clomid (patient stated that he ran out) Blood Thinner: none Job Service Specialist Required: No Accompanied by: Self / Same As Patient Allergies No Known Allergies Allergy (Verified 08/22/23 19:14) Medication List - Last Reconciled 08/22/23 by JULIANNE Pemberton- clomiphene citrate 25 mg (1/2 x 50 mg) PO .MWF 30 days dextroamphetamine-amphetamine 15 mg 1 tab PO DAILY lorazepam 2 mg PO BEDTIME PRN metaxalone mg PO mirtazapine 45 mg PO BEDTIME tadalafil (Cialis) 20 mg PO DAILY PRN 90 days tadalafil (Cialis) 5 mg PO DAILY 90 days HPI Comments Details: Naseem is a very pleasant 27-year-old male patient of Dr. Mlies. He has a past medical history of PTSD, lumbar disc disease with radiculopathy, ADD, anxiety, and depression. He is being followed up on today via video telehealth for his ongoing low libido and erectile dysfunction. In discussion with the patient today he discusses that although he continues with clomiphene for clomiphene stimulation he continues to experience low libido, fatigue, and erectile dysfunction. Recent labs reviewed with the patient today as noted and trended below.Discussed potential causes of the symptoms patient is experiencing/reporting. He discusses that although he continues to experience these issues he does wish to continue with clohe has found this somewhat helpful. TSH 12/26 1.60 FSH 12/26 2.7 07/27 5.3 Estradiol 1 13, 07/27 29 LH 12/26 5.9, 04/29 8.5, 07/27 10.7 Prolactin 12/26 7.6, 07/27 8.0 SHBG 12/26 19, 07/27 24 Total testosterone 10/26 378, 12/26 297, 03/29 256, 04/29 606, 07/27 653 Free testosterone 10/26 86.6, 12/26 58.5, 03/29 50.0, 04/29 135.1, 07/27 TNP He has a history of the last 3 years with ongoing fatigue, low libido, and erectile dysfunction. He reports noting despite adequate sleep of 8-10 hours per night he still feels fatigued upon wakening. He discusses his ongoing issues with his major depression. He discusses going to therapy. He reports having had multiple sleep studies in the past however has not been diagnosed with sleep apnea despite his snoring however is undergoing another sleep study soon. In review of patient's chart it appears sleep study from 07/27 with no sleep apnea noted. Normal sleep study. When asked patient denies any bothersome urinary issues at this time. He denies urinary urgency, urinary frequency, incontinence, nocturia, hematuria, dysuria, foul smelling urine, changes to urinary stream, flank pain, fever, and or chills. He is happy with his current voiding parameters. [facility] Medical History Hyperlipidemia Loss of libido History of chlamydia Witnessed apneic spells Loud snoring Difficulty concentrating Fatigue Erectile dysfunction History of COVID-19 Lumbar degenerative disc disease PTSD (post-traumatic stress disorder) Lumbar disc disease with radiculopathy ADD (attention deficit disorder) Surgical History No pertinent past surgical history Social History Housing: Apartment Patient Tobacco Use Status: Never used Tobacco e-Cigarette/Vaping Use: Never Used service: Yes Current occupational status: employed Cognitive needs: No Hearing needs: No Vision needs: No Review of Systems Const Reports no additional complaints Eyes Reports no additional complaints ENT Reports no additional complaints Card Reports as per HPI Resp Reports as per HPI GI Reports no additional complaints Reports as per HPI Musc Reports as per HPI Neuro Reports as per HPI Psych Reports as per HPI Endo Reports no additional complaints Masood/Lymph Reports no additional complaints Aller/Immun Reports no additional complaints Physical Exam Const General: cooperative, healthy appearing, comfortable, no acute distress, well developed, alert and awake Orientation/consciousness: patient oriented x3 Resp Effort & Inspection: normal respiratory effort and able to speak in complete sentences Neuro General: patient oriented x3 Psych Appearance: grossly normal Mental Status: mental status grossly normal Speech and movement: Clear speech present Affect: normal affect Attitude: cooperative Thought process: Normal thought process present Thought content: Normal thought content present Insight: Fair insight present (Psych) Judgement: Fair judgement present (Psych) Telehealth Telehealth Telehealth Platform: [employer] Location of provider rendering services: practice address Location of patient: address on file Patient Identification confirmed using: Name, : Yes Telehealth method: video Patient verbally consented to treatment: Yes Patient verbally consented to billing insurance company: Yes Patient informed of any privacy concerns related to visit: Yes Minutes spent on Phone/Video with Pt.: 15 Assessment & Plan Assessment & Plan (1) Erectile dysfunction: Code(s): N52.9 - Male erectile dysfunction, unspecified Category: Medical (2) Loss of libido: Code(s): R68.82 - Decreased libido Category: Medical Plan Will decrease clomiphene to 25 mg 3 times per week; prescription provided. Recent labs reviewed with the patient today; as noted above. Recent sleep study reviewed; normal. Continue 5 mg of Cialis daily; refill provided. Continue PRN Cilais; refill provided. Patient otherwise denies any bothersome urinary issues. He reports be happy with current voiding parameters. Will obtain FSH, LH, SHBG, prolactin, testosterone free and total, and estradiol in 3 months. Follow-up in 3 months with labs to be completed prior; or sooner with any issues, concerns, and or questions. Orders: Orders Follicle Stimulating Hormone 3 Months R68.82 - Decreased libido Lutenizing Hormone 3 Months R68.82 - Decreased libido Sex Hormone Binding Globulin 3 Months R68.82 - Decreased libido Prolactin 3 Months R68.82 - Decreased libido Testosterone, Free/Total 3 Months R68.82 - Decreased libido Estradiol Ultra Sensitive 3 Months E29.1 - Testicular hypofunction, R68.82 - Decreased libido Medications: Changed From clomiphene citrate Take 50mg three times per week [facility] DR33 [id number] 50 mg PO .MWF 30 days 14 tabs 3RF E29.1 - Testicular hypofunction, R79.89 - Other specified abnormal findings of blood chemistry To clomiphene citrate Take 50mg three times per week [facility] DR33 [id number] 25 mg (1/2 x 50 mg) PO .MWF 30 days 15 tabs 0RF E29.1 - Testicular hypofunction, R79.89 - Other specified abnormal findings of blood chemistry Refilled tadalafil (Cialis) administer approximately 30min before sexual activity; do not use more than 1 dose per 24hrs BIN [id number] [facility] Group DR33 20 mg PO DAILY 90 days PRN 30 tabs 1RF sexual activity tadalafil (Cialis) [id number] [facility] [id number] Member [id number] 5 mg PO DAILY 90 days 90 tabs 2RF R68.82 - Decreased libido Patient Instructions: The patient had an opportunity to ask questions regarding the treatment plan. All questions were answered. Physical exam, labs, and imaging were discussed and reviewed in detail. As well as risks, benefits, and discussion of treatment choices. No major barriers to understanding were identified. The patient expressed understanding and agreement with the above treatment plan. The patient was made aware they should contact our office by phone for worsening of their current condition, the appearance of new symptoms, or with any questions or concerns. Compliance is encouraged with any medications and follow up testing that is ordered. It is a privilege to be allowed the opportunity to participate in? your urological care.? Again, if you have any questions or concerns If you have any questions or concerns please do not hesitate to contact me. The office is [phone]. This note is constructed using voice recognition software. While every effort has been made to ensure accuracy machine feller errors may have been included. Yours sincerely, GAVIN Pemberton Coding Level of Care Code Tele Est Pt Level 3 (59744) Diagnoses Erectile dysfunction N52.9 Loss of libido R68.82
== END 2023-08-22 10:45 | disposition home or self-care (01) ==
LOC: HO.HUSH 09:42
PROVIDERS: PCP Internal Medicine; Visit Provider Nurse Practitioner Family
DX: N52.9 Male erectile dysfunction, unspecified (principal); R68.82 Decreased libido
CPT/HCPCS: 99213

== ENCOUNTER → 2023-08-22 09:42 | Outpatient (BNVA) | payer OTHER, SELFPAY | PROVIDERS: PCP Internal Medicine; Visit Provider Nurse Practitioner Family ==

== ENCOUNTER 2023-10-06 08:53 | Outpatient (AMB) | payer OTHER, SELFPAY ==
[2023-10-06 08:55] VITALS: BP 114/72; PULSE 71; TEMP 36.8; O2SAT 98
--- NOTE | 2023-10-06 08:55 | AM.OFFWIN_ITS ---
Intake Vital Signs 3 10/06/23 08:55 Height 6 ft Weight 221 lb BMI 30.0 BP 114/72 Blood Pressure Location Rt radial Position Sitting Pulse 71 Pulse Source Pulse Oximeter Temp 98.3 F Temp Source Temporal Artery Scan Pulse Oximetry (%) 98 Oxygen Delivery Method Room Air Intake Visit Reasons: EP Lump on cheek/?Ear Infection Intake Note: pt c/o lump on cheek bone Lt side of face, Lt ear pain Patient Tobacco Use Status: Never used Tobacco Allergies No Known Allergies Allergy (Verified 10/06/23 09:01) Do you need a note to return to daycare/school/sports/work: No HPI HPI Comments 2 History of Present Illness0 Details 27 y/o male patient who presents to the in clinic with c/o Left ear pain and small lump on Left cheek. Reports waking up in the morning and noticing the swelling. Denies Fevers, chills, nausea or vomiting. PFS Medical History Hyperlipidemia Loss of libido History of chlamydia Witnessed apneic spells Loud snoring Difficulty concentrating Fatigue Erectile dysfunction History of COVID-19 Lumbar degenerative disc disease PTSD (post-traumatic stress disorder) Lumbar disc disease with radiculopathy ADD (attention deficit disorder) Surgical History No pertinent past surgical history Social History Housing: Apartment Patient Tobacco Use Status: Never used Tobacco e-Cigarette/Vaping Use: Never Used service: Yes Current occupational status: employed Cognitive needs: No Hearing needs: No Vision needs: No Review of Systems Const All systems reviewed & are unremarkable except as noted in HPI and below Physical Exam Vital Signs: Last Vital Signs Temp 98.3 F 10/06/23 08:55 Pulse 71 10/06/23 08:55 BP 114/72 10/06/23 08:55 Pulse Ox 98 10/06/23 08:55 Oxygen Delivery Method Room Air 10/06/23 08:55 BMI result Body Mass Index 30.0 Const General: comfortable and no acute distress Nutritional Appearance: well nourished Orientation/consciousness: patient oriented x3 HEENT Head: Yes normocephalic Ears: external ears normal and TM abnormal bulging bilateral, erythematous on the left, with fluid behind the TM bilateral and retracted; not bullous, not dull, not with effusion and not perforated General nose exam: Abnormal mucous membranes and turbinates present boggy and erythematous Face and sinus: Yes sinuses nontender Face images: 2 1. Small non-tender, fixed and soft lump left cheek. Mouth: moist mucous membranes Throat: Yes uvula midline and Yes postnasal drainage Resp Effort & Inspection: normal respiratory effort, able to speak in complete sentences and no cough Auscultation: clear to auscultation bilaterally, no crackles, no rales, no rhonchi and no wheezes Cardio Heart sounds: S1 normal heart sound present and S2 normal heart sound present Neuro General: patient oriented x3, gait normal and moves all extremities Psych Speech and movement: Normal speech and movement present Assessment & Plan Assessment & Plan (1) Otitis media: Code(s): H66.90 - Otitis media, unspecified, unspecified ear Qualifiers: Laterality: left Otitis media type: unspecified Qualified Code(s): H 66.92 - Otitis media, unspecified, left ear Plan: Ordered PCN Left ear infection with probably Maxilla sinusitis. NSAIDs for pain relief and reducing the swelling RTC Monday if not better. Medications: New 2 amoxicillin-pot clavulanate 875-125 mg 1 tab PO Q12H 20 tabs 0RF 10 days H66.92 - Otitis media, unspecified, left ear ibuprofen 800 mg PO Q8H 30 tabs 0RF H66.92 - Otitis media, unspecified, left ear Coding Level of Care Code Est Pt Level 3 (45217) Diagnoses Left otitis media, unspecified otitis media type H66.92 Laterality: left Otitis media type: unspecified Time Spent (min) 15
== END 2023-10-06 09:36 | disposition home or self-care (01) ==
PROVIDERS: PCP Internal Medicine; Visit Provider Nurse Practitioner Family
DX: H66.92 Otitis media, unspecified, left ear (principal)
CPT/HCPCS: 99213

== ENCOUNTER 2023-10-09 13:26 | Outpatient (AMB) | payer OTHER, SELFPAY ==
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
[2023-10-09 13:40] VITALS: BP 100/60; PULSE 89; O2SAT 98; BMI 29.8
== END 2023-10-09 15:46 | disposition home or self-care (01) ==
PROVIDERS: PCP Internal Medicine; Visit Provider Internal Medicine
DX: Z00.01 Encounter for general adult medical examination with abnormal findings (principal); M79.671 Pain in right foot; M79.672 Pain in left foot; M25.531 Pain in right wrist; R20.0 Anesthesia of skin; R20.2 Paresthesia of skin; M54.40 Lumbago with sciatica, unspecified side; M54.2 Cervicalgia; Z13.220 Encounter for screening for lipoid disorders; R10.816 Epigastric abdominal tenderness; H65.02 Acute serous otitis media, left ear; M25.532 Pain in left wrist
CPT/HCPCS: 1123F; 99214; 99395; 99497

== ENCOUNTER 2023-10-14 13:30 | Outpatient (REF) | payer OTHER, SELFPAY ==
[2023-10-14 15:47] LABS: MANUAL DIFF FLAG NO
[2023-10-14 15:49] LABS: Basophils Percent Auto 0.5 % (0-2); Eosinophils Absolute Auto 0.2 X10*3/uL (0.0-0.4); Eosinophils Percent Auto 2.7 % (0-4); Hematocrit 48.9 % (42.0-52.0); Hemoglobin 17.3 g/dl (14.0-18.0); Imm Gran Abs Auto 0.02 X10*3/uL (0.00-0.03); Imm Gran Pct Auto 0.4 % (0.0-0.4); Lymphocytes Absolute Auto 1.7 X10*3/uL (1.2-4.9); Lymphocytes Percent Auto 30.9 % (20-40); Mean Corpuscular HGB Conc 35.4 g/dl (31.0-36.0); Mean Corpuscular Hemoglobin 31.4 pg (27.0-33.0); Mean Corpuscular Volume 88.7 fL (80.0-98.0); Mean Platelet Volume 10.5 fL (9.4-12.4); Monocytes Absolute Auto 0.4 X10*3/uL (0.1-1.2); Monocytes Percent Auto 6.6 % (2-11); Neutrophils Absolute Auto 3.3 x10*3/uL (2.0-8.3); Neutrophils Percent Auto 58.9 % (45-73); Platelet Count 213 X10*3/uL (160-400); Red Blood Count 5.51 X10*6/uL (4.60-5.80); White Blood Count 5.6 X10*3/uL (4.8-10.8)
[2023-10-14 16:15] LABS: Alanine Aminotransferase 14 U/L (0-40); Anion Gap 12 (12-20); Aspartate Amino Transferase 17 U/L (5-37); Blood Urea Nitrogen 23 mg/dL (9-16); Calcium 9.7 mg/dL (8.4-10.2); Carbon Dioxide 25 mmol/L (22-29); Chloride 106 mmol/L (96-108); Cholesterol 158 mg/dL (<200); Estimated Glomerular Filt Rate 55; Glucose Fasting 85 mg/dL (60-99); HDL Cholesterol 29 mg/dL (>40); LDL Cholesterol Calculated 108 mg/dL (<100); Potassium 5.2 mmol/L (3.3-5.1); Sodium 138 mmol/L (135-145); Triglycerides 108 mg/dL (<150)
[2023-10-14 16:30] LABS: Vitamin D 25-OH Total 81.2 ng/mL (>30)
[2023-10-15 03:52] LABS: Syphilis Screen Nonreactive (Nonreactive)
[2023-10-15 03:58] LABS: HIV AB/AG Nonreactive (Nonreactive); HIV Num 1 0.05 S/CO (0.00-0.99)
[2023-10-15 05:02] LABS: CT PCR NOT DETECTED (Not Detect.); NG PCR NOT DETECTED (Not Detect.)
== END 2023-10-14 13:31 | disposition home or self-care (01) ==
LOC: HO.HMGCLDS 13:30
PROVIDERS: PCP Internal Medicine; Visit Provider Internal Medicine
DX: Z00.01 Encounter for general adult medical examination with abnormal findings (principal); Z71.89 Other specified counseling; Z13.220 Encounter for screening for lipoid disorders; Z13.1 Encounter for screening for diabetes mellitus
CPT/HCPCS: 80048; 80061; 82306; 84450; 84460; 85025; 86780; 87389; 87491; 87591

== ENCOUNTER 2023-10-26 15:48 | Outpatient (AMB) | payer OTHER, SELFPAY ==
--- NOTE | 2023-10-26 15:50 | AM.OFFWIN_ITS ---
Intake Vital Signs 10/26/23 15:51 Height 6 ft Weight 220 lb BMI 29.8 BP 118/78 Blood Pressure Location Rt brachial Position Sitting Pulse 64 Pulse Source Pulse Oximeter Temp 98.5 F Temp Source Oral Pulse Oximetry (%) 98 Oxygen Delivery Method Room Air Intake Visit Reasons: EP- RT hand dryness Intake Note: pt c/o Dry skin RT hand. ? Psoriasis Patient Tobacco Use Status: Never used Tobacco Allergies No Known Allergies Allergy (Verified 10/26/23 15:50) Do you need a note to return to daycare/school/sports/work: No PFS Medical History (Updated 10/16/23 @ 21:55 by Anjali Bhardwaj MD) Complaint of melena Chronic heartburn Epigastric direct abdominal tenderness Cervicalgia Lumbago of lumbar region with sciatica Numbness and tingling in both hands Wrist joint pain Chronic pain of both feet Hyperlipidemia Loss of libido History of chlamydia Witnessed apneic spells Loud snoring Difficulty concentrating Fatigue Erectile dysfunction History of COVID-19 Lumbar degenerative disc disease PTSD (post-traumatic stress disorder) Lumbar disc disease with radiculopathy ADD (attention deficit disorder) Surgical History No pertinent past surgical history Social History Housing: Apartment Patient Tobacco Use Status: Never used Tobacco e-Cigarette/Vaping Use: Never Used service: Yes Current occupational status: employed Cognitive needs: No Hearing needs: No Vision needs: No Physical Exam Vital Signs: Last Vital Signs Temp 98.5 F 10/26/23 15:51 Pulse 64 10/26/23 15:51 BP 118/78 10/26/23 15:51 Pulse Ox 98 10/26/23 15:51 Oxygen Delivery Method Room Air 10/26/23 15:51 BMI result Body Mass Index 29.8 Assessment & Plan Assessment & Plan (1) Rash and nonspecific skin eruption: Code(s): R21 - Rash and other nonspecific skin eruption Plan: DDX's: Dermatitis vs Eczema vs Psoriasis. Keep skin dry and moisturized with Aquaphor Apply thin layer to the affected skin BID Advised to call [facility] for an appointment (Information given to patient). Medications: New betamethasone dipropionate 0.05% 1 appl topical BID 45 grams 0RF 14 days R21 - Rash and other nonspecific skin eruption Coding Level of Care Code Est Pt Level 3 (03087) Diagnoses Rash and nonspecific skin eruption R21 Time Spent (min) 15
[2023-10-26 15:51] VITALS: BP 118/78; PULSE 64; TEMP 36.9; O2SAT 98; BMI 29.8
== END 2023-10-26 16:06 | disposition home or self-care (01) ==
PROVIDERS: PCP Internal Medicine; Visit Provider Nurse Practitioner Family
DX: R21 Rash and other nonspecific skin eruption (principal)
CPT/HCPCS: 99213

== ENCOUNTER 2023-10-31 08:14 | Outpatient (REF) | payer OTHER, SELFPAY ==
--- NOTE | 2023-10-31 08:17 | EMG_ITS ---
Bilateral median and ulnar motor and sensory studies were performed. Bilateral radial and median and lateral antecubital brachial sensory studies were performed, and paraspinal muscles were tested with a needle. IMPRESSION: This study was mostly unremarkable except mild right ulnar nerve slowing across elbow. MD COLIN Huitron/CYNDI / [id number]
== END 2023-10-31 08:15 | disposition home or self-care (01) ==
LOC: HO.NEURO 08:14
PROVIDERS: PCP Internal Medicine; Visit Provider Internal Medicine
DX: R20.0 Anesthesia of skin (principal); R20.2 Paresthesia of skin
CPT/HCPCS: 95886; 95910; 95913

== ENCOUNTER 2023-11-01 08:03 | Outpatient (AMB) | payer OTHER, SELFPAY ==
--- NOTE | 2023-11-01 08:04 | AM.OFFWIN_ITS ---
Intake Vital Signs 11/01/23 08:05 Height 6 ft Weight 220 lb BMI 29.8 BP 122/80 Blood Pressure Location Rt brachial Position Sitting Pulse 76 Pulse Source Pulse Oximeter Pulse Oximetry (%) 98 Oxygen Delivery Method Room Air Intake Visit Reasons: ep sti screening Intake Note: Patient here for STI screening, states he has a new partner and has now been experiencing burning when urination. Patient Tobacco Use Status: Never used Tobacco Allergies No Known Allergies Allergy (Verified 11/01/23 08:06) Do you need a note to return to daycare/school/sports/work: No HPI HPI Comments History of Present Illness Details Patient is a 27-year-old male stating he has a new sexual partner and has a few episodes of burning with urination since having sexual relations with his new partner. These episodes occurred yesterday and the day before. He denies any abnormal penile discharge, fevers, abdominal pain, blood in his urine or increased frequency of urination or urgency. [facility] Medical History (Updated 11/01/23 @ 08:23 by Jessica Andrew PA-C) Complaint of melena Chronic heartburn Epigastric direct abdominal tenderness Cervicalgia Lumbago of lumbar region with sciatica Numbness and tingling in both hands Wrist joint pain Chronic pain of both feet Hyperlipidemia Loss of libido History of chlamydia Witnessed apneic spells Loud snoring Difficulty concentrating Fatigue Erectile dysfunction History of COVID-19 Lumbar degenerative disc disease PTSD (post-traumatic stress disorder) Lumbar disc disease with radiculopathy ADD (attention deficit disorder) Surgical History No pertinent past surgical history Social History Housing: Apartment Patient Tobacco Use Status: Never used Tobacco e-Cigarette/Vaping Use: Never Used service: Yes Current occupational status: employed Cognitive needs: No Hearing needs: No Vision needs: No Review of Systems Const All systems reviewed & are unremarkable except as noted in HPI and below Physical Exam Vital Signs: Last Vital Signs Pulse 76 11/01/23 08:05 BP 122/80 11/01/23 08:05 Pulse Ox 98 11/01/23 08:05 Oxygen Delivery Method Room Air 11/01/23 08:05 BMI result Body Mass Index 29.8 Const General: cooperative, healthy appearing, comfortable, no acute distress and well developed Orientation/consciousness: patient oriented x3 Limitations: no limitations HEENT Head: Yes normal to inspection Ears: hearing grossly normal bilaterally General nose exam: Normal external nose present Face and sinus: Yes normal facial exam Eyes General: appearance normal, both eyes and all related structures Neck Neck: Yes normal visual inspection and Yes full ROM Resp Effort & Inspection: normal respiratory effort and able to speak in complete sentences Skin General skin exam: no rashes or lesions noted Neuro General: patient oriented x3 Extrem General: Yes normal to inspection Assessment & Plan Assessment & Plan (1) UTI (urinary tract infection): Code(s): N39.0 - Urinary tract infection, site not specified Qualifiers: Urinary tract infection type: acute cystitis Hematuria presence: without hematuria Qualified Code(s): N30.00 - Acute cystitis without hematuria Plan: Urinalysis negative for infection and blood. We will treat patient based on his symptoms. If he does test positive for gonorrhea or chlamydia, we will need to send the prescription to a pharmacy in [place]. The patient will give us the information when we call him with the test results. Recommended he stay abstinent until we have the test results for gonorrhea and chlamydia. Plan See above Medications: New cefuroxime axetil 500 mg PO Q12H 10 tabs 0RF Coding Level of Care Code Est Pt Level 3 (50697) Diagnoses Acute cystitis without hematuria N30.00 Urinary tract infection type: acute cystitis Hematuria presence: without hematuria
[2023-11-01 08:05] VITALS: BP 122/80; PULSE 76; O2SAT 98; BMI 29.8
== END 2023-11-01 08:27 | disposition home or self-care (01) ==
PROVIDERS: PCP Internal Medicine; Visit Provider Physician Assistant
DX: Z13.9 Encounter for screening, unspecified (principal); N30.00 Acute cystitis without hematuria
CPT/HCPCS: 81003; 99213

== ENCOUNTER 2023-11-01 08:34 | Outpatient (REF) | payer OTHER, SELFPAY ==
[2023-11-01 12:41] LABS: CT PCR NOT DETECTED (Not Detect.); NG PCR NOT DETECTED (Not Detect.)
== END 2023-11-01 08:35 | disposition home or self-care (01) ==
LOC: HO.LAB 08:34
PROVIDERS: Visit Provider Physician Assistant
DX: Z91.89 Other specified personal risk factors, not elsewhere classified (principal); Z13.9 Encounter for screening, unspecified
CPT/HCPCS: 87491; 87591

== ENCOUNTER 2023-11-22 08:23 | Outpatient (AMB) | payer OTHER, SELFPAY ==
--- NOTE | 2023-11-22 08:26 | AM.OFFWIN_ITS ---
Intake Vital Signs 11/22/23 08:27 Height 6 ft Weight 220 lb BMI 29.8 BP 118/80 Blood Pressure Location Rt brachial Position Sitting Pulse 71 Pulse Source Pulse Oximeter Pulse Oximetry (%) 99 Oxygen Delivery Method Room Air Intake Visit Reasons: EP Fit for Duty paperwork- ok'd ivette Intake Note: pt here for fit for duty paperwork. He states he has 3 herniated discs and is still in pain. Patient Tobacco Use Status: Never used Tobacco Allergies No Known Allergies Allergy (Verified 11/22/23 08:36) Do you need a note to return to daycare/school/sports/work: Yes HPI EP Fit for Duty paperwork- ok'esvin mcmahon HPI Details This note is constructed using voice recognition software. While every effort has been made to ensure accuracy, head rigger errors may have been included. The patient is a 28 year old male who presents to the clinic today with fit for duty request paperwork. He has a history of ADD, treated with Adderall with moderate effect. He also has a history of plantar fasciitis which he is pending orthotic shoe inserts for. He is being worked up for potential diagnosis of sleep apnea due to symptoms of fatigue, snoring, and witnessed events with to inconclusive at-home studies. He has a pending in person test next month. He also has a history lumbar pain due to disc herniation with radiculopathy, treated by pain management with cortisone injections. His back pain has limited his ability to function, and as a result he has difficulty with bending over, twisting, and walking or running due to increased pain with these activities. [facility] Medical History (Updated 11/22/23 @ 09:19 by Ivette Bailon NP) Right knee injury Elevated serum creatinine At risk for sexually transmitted disease due to partner with multiple partners Complaint of melena Chronic heartburn Epigastric direct abdominal tenderness Cervicalgia Lumbago of lumbar region with sciatica Numbness and tingling in both hands Wrist joint pain Chronic pain of both feet Hyperlipidemia Loss of libido History of chlamydia Witnessed apneic spells Loud snoring Difficulty concentrating Fatigue Erectile dysfunction History of COVID-19 Lumbar degenerative disc disease PTSD (post-traumatic stress disorder) Lumbar disc disease with radiculopathy ADD (attention deficit disorder) Surgical History No pertinent past surgical history Social History Housing: Apartment Patient Tobacco Use Status: Never used Tobacco e-Cigarette/Vaping Use: Never Used service: Yes Current occupational status: employed Cognitive needs: No Hearing needs: No Vision needs: No Review of Systems Const All systems reviewed & are unremarkable except as noted in HPI and below Physical Exam Vital Signs: Last Vital Signs Pulse 71 11/22/23 08:27 BP 118/80 11/22/23 08:27 Pulse Ox 99 11/22/23 08:27 Oxygen Delivery Method Room Air 11/22/23 08:27 BMI result Body Mass Index 29.8 Const General: cooperative, healthy appearing, comfortable, no acute distress and alert Orientation/consciousness: patient oriented x3 Limitations: no limitations HEENT Head: Yes normal to inspection and Yes normocephalic Ears: hearing grossly normal bilaterally General nose exam: Normal external nose present Face and sinus: Yes normal facial exam and Yes sinuses nontender Mouth: Normal oral and palatal mucosa present and tongue normal Teeth and gingiva: dentition normal Throat: Yes posterior oropharynx normal Eyes General: appearance normal, both eyes and all related structures Neck Neck: Yes normal visual inspection, Yes full ROM and Yes no lymphadenopathy Resp Effort & Inspection: normal respiratory effort and able to speak in complete sentences Auscultation: clear to auscultation bilaterally Cardio Jugular venous distension: no JVD Palpation: normal PMI Rate: regular rate Heart sounds: S1 normal heart sound present, S2 normal heart sound present, no click, no gallops, no murmurs and no rubs GI Inspection: Yes normal to inspection Palpation (GI): Soft to palpation and nontender Percussion: Yes normal to percussion Auscultation: normal bowel sounds General: Yes no CVA tenderness Back/Spine/Pelvis Other: Lumbar tenderness bilaterally and over spine to palpation. He has increased muscle bulging bilateral lumbar region. Positive SLR, positive well SLR. Lateral rotation limited to 5% from baseline bilaterally. Forward bend limited to 90% due to pain. Intact distal neurovascular exam. Back: no CVA tenderness Skin General skin exam: no rashes or lesions noted, elasticity normal and turgor normal Neuro General: patient oriented x3 Extrem General: Yes normal to inspection, Yes full ROM, Yes capillary refill normal and Yes normal exam except as noted Psych Appearance: grossly normal Mental Status: mental status grossly normal Speech and movement: Normal speech and movement present Affect: normal affect Assessment & Plan Assessment & Plan (1) ADD (attention deficit disorder): Comment: Diagnosed and evaluated in [place] in 2018, started on Adderall, takes as needed currently being seen by a behavioral therapist in [place] Code(s): F98.8 - Other specified behavioral and emotional disorders with onset usually occurring in childhood and adolescence Qualifiers: Attention deficit type: unspecified type Qualified Code(s): F98.8 - Other specified behavioral and emotional disorders with onset usually occurring in childhood and adolescence Plan: Patient continues treatment with Adderall and following his care team for this routinely. (2) Lumbar disc disease with radiculopathy: Comment: L5-S1 status post epidural injection in [place] 2021 currently going to [facility] in [place] status post right L4-L5 interlaminar NITHYA. Code(s): M51.16 - Intervertebral disc disorders with radiculopathy, lumbar region Plan: Patient continues to have limited lateral rotation and forward bend due to these pains. He is currently following a pain specialist for cortisone injections, which his last has worn off. He has pending follow-up for consideration of repeat injection. Records from Neurosurgery reviewed, patient is advised to limit duties as they will likely exacerbate his condition. (3) Chronic pain of both feet: Code(s): M79.671 - Pain in right foot; M79.672 - Pain in left foot; G89.29 - Other chronic pain Plan: Patient pending orthotic inserts for plantar fasciitis. Advised patient to use these as ordered. (4) Witnessed apneic spells: Code(s): R06.81 - Apnea, not elsewhere classified Plan: Patient pending sleep apnea test given previous inconclusive results. (5) Encounter for fitness for duty examination: Code(s): Z02.89 - Encounter for other administrative examinations Plan: Please see scanned in document for fitness for duty. Restrictions do applied. Plan See above for full details and plan. Coding Level of Care Code Sports/Work/School Physical Diagnoses Attention deficit disorder, unspecified type F98.8 Attention deficit type: unspecified type Lumbar disc disease with radiculopathy M51.16 Chronic pain of both feet M79.671; M79.672; G89.29 Witnessed apneic spells R06.81 Encounter for fitness for duty examination Z02.89
[2023-11-22 08:27] VITALS: BP 118/80; PULSE 71; O2SAT 99; BMI 29.8
== END 2023-11-22 09:31 | disposition home or self-care (01) ==
PROVIDERS: PCP Internal Medicine; Visit Provider Registered Nurse
DX: F98.8 Other specified behavioral and emotional disorders with onset usually occurring in childhood and adolescence (principal); M51.16 Intervertebral disc disorders with radiculopathy, lumbar region; M79.671 Pain in right foot; M79.672 Pain in left foot; G89.29 Other chronic pain; R06.81 Apnea, not elsewhere classified; Z02.89 Encounter for other administrative examinations

== ENCOUNTER → 2023-11-22 08:23 | Outpatient (BNVA) | payer OTHER, SELFPAY | PROVIDERS: PCP Internal Medicine | DX: F98.8 Other specified behavioral and emotional disorders with onset usually occurring in childhood and adolescence (principal); M51.16 Intervertebral disc disorders with radiculopathy, lumbar region; M79.671 Pain in right foot; M79.672 Pain in left foot; G89.29 Other chronic pain; R06.81 Apnea, not elsewhere classified; Z02.89 Encounter for other administrative examinations | CPT/HCPCS: 99212 ==

== ENCOUNTER 2023-11-28 09:57 | Outpatient (REF) | payer OTHER, SELFPAY ==
[2023-11-29 07:59] LABS: Follicle Stimulating Hormone 2.5 mIU/mL (1.4-12.8); Lutenizing Hormone 3.9 mIU/mL (1.5-9.3); Prolactin 4.6 ng/mL (2.0-18.0); Sex Hormone Binding Globulin 22 nmol/L (10-50)
[2023-12-04 02:33] LABS: Testosterone, Free 104.1 pg/mL (35.0-155.0); Testosterone, Total 542 ng/dL (250-1100)
[2023-12-07 04:08] LABS: Estradiol Ultra Sensitive 30 pg/mL (< OR = 29)
== END 2023-11-28 09:58 | disposition home or self-care (01) ==
LOC: HO.HMGCLDS 09:57
PROVIDERS: PCP Internal Medicine; Visit Provider Nurse Practitioner Family
DX: E29.1 Testicular hypofunction (principal); R68.82 Decreased libido
CPT/HCPCS: 36415; 82670; 83001; 83002; 84146; 84270; 84402; 84403

== ENCOUNTER 2023-12-08 13:06 | Outpatient (AMB) | payer OTHER, SELFPAY ==
--- NOTE | 2023-12-08 13:16 | A.OFFVIS_ITS ---
Intake Visit Reasons: LABS Follow Up(set) Intake Note: Patient is Present for Telephone Follow Up LABS Urology Med: Tadalafil Antibiotic Allergy: None Blood Thinner:None Allergies No Known Allergies Allergy (Verified 12/31/23 07:37) HPI Comments Details: Naseem is a pleasant male. He is a patient of Dr. Miles. Has a following urological conditions - erectile dysfunction - hypogonadism Telemedicine Evaluation 15 min Consultation D[employer] Video Currently inpatient and PTSD treatment in [place] Reports difficulties with libido and erections continue Has been on clomiphene with appropriate target testosterone Prior use of SSRIs and NSSRIs - discussed their association with SSRIs syndrome and serotonin inhibition Will trial direct testosterone for 2 months Hypogonadism Had good response to clomiphene stimulation TSH 12/26 1.60 FSH 12/26 2.7 07/27 5.3 Estradiol 1 13, 07/27 29 LH 12/26 5.9, 04/29 8.5, 07/27 10.7, LH 3.9 Prolactin 12/26 7.6, 07/27 8.0 SHBG 12/26 19, 07/27 24 Total testosterone 10/26 378, 12/26 297, 03/29 256, 04/29 606, 07/27 653, 11/27 542 Free testosterone 10/26 86.6, 12/26 58.5, 03/29 50.0, 04/29 135.1, 07/27 TNP, 11/27 104 PFSH Medical History (Updated 12/31/23 @ 07:55 by Sharon Miles MD) Unspecified injury of left quadriceps muscle, fascia and tendon, subsequent encounter Bilateral pulmonary embolism Left leg DVT Right knee injury Elevated serum creatinine At risk for sexually transmitted disease due to partner with multiple partners Complaint of melena Chronic heartburn Epigastric direct abdominal tenderness Cervicalgia Lumbago of lumbar region with sciatica Numbness and tingling in both hands Wrist joint pain Chronic pain of both feet Hyperlipidemia Loss of libido History of chlamydia Witnessed apneic spells Loud snoring Difficulty concentrating Fatigue Erectile dysfunction History of COVID-19 Lumbar degenerative disc disease PTSD (post-traumatic stress disorder) Lumbar disc disease with radiculopathy ADD (attention deficit disorder) Surgical History No pertinent past surgical history Social History Housing: Apartment Patient Tobacco Use Status: Never used Tobacco e-Cigarette/Vaping Use: Never Used service: Yes Current occupational status: employed Cognitive needs: No Hearing needs: No Vision needs: No Review of Systems Const All systems reviewed & are unremarkable except as noted in HPI and below Reports no additional complaints Resp Reports no additional complaints GI Reports no additional complaints Reports as per HPI Musc Reports no additional complaints Physical Exam Telemedicine evaluation Appropriate responses Regular breathing rate and rhythm HEENT Head: Yes normal to inspection Ears: hearing grossly normal bilaterally Eyes General: appearance normal, both eyes and all related structures Neck Neck: Yes normal visual inspection Chest Chest palpation & inspection: normal inspection of the chest Resp Effort & Inspection: normal respiratory effort and able to speak in complete sentences Telehealth Telehealth Telehealth Platform: [employer] Location of provider rendering services: practice address Location of patient: address on file Patient Identification confirmed using: Name, : Yes Telehealth method: video Patient verbally consented to treatment: Yes Patient verbally consented to billing insurance company: Yes Patient informed of any privacy concerns related to visit: Yes Minutes spent on Phone/Video with Pt.: 15 Assessment & Plan Assessment & Plan (1) Hypogonadism in male: Code(s): E29.1 - Testicular hypofunction Category: Medical Plan Six week follow-up Start testosterone injection every 2 weeks Orders: Orders Testosterone, Total 6 Weeks E29.1 - Testicular hypofunction Medications: New testosterone cypionate (Depo-Testosterone) 200 mg IM Q2W 2 mL 5RF 4 weeks E29.1 - Testicular hypofunction Patient Instructions: Imaging studies, laboratory and physical exam results were discussed and reviewed in detail. No major barriers to patient understanding were identified. An opportunity to ask questions regarding the treatment plan was provided. All questions were answered. The patient expressed understanding and agreement with the above treatment plan. The patient is aware they should contact our office by phone for worsening of their current condition or the appearance of new urologic symptoms. Compliance is encouraged with any medications and followup testing that is ordered. It is a privilege to participate in the urologic care of your patient. If you have any questions or concerns regarding treatment for the above conditions, or other urologic issues, please do not hesitate to contact me. The office telephone contact is [phone]. This note is constructed using voice recognition software. While every effort has been made to ensure accuracy leather repairer errors may have been included. Yours sincerely, Dr Cesar Cat MD, [facility] - Urology Providers of Expert, Compassionate Care for the Genitourinary System Coding Level of Care Code Tele Est Pt Level 4 (62019) Diagnoses Hypogonadism in male E29.1
== END 2023-12-08 14:07 | disposition home or self-care (01) ==
LOC: HO.HUSH 13:06
PROVIDERS: PCP Internal Medicine; Visit Provider Urology
DX: E29.1 Testicular hypofunction (principal)
CPT/HCPCS: 99214

== ENCOUNTER → 2023-12-08 13:06 | Outpatient (BNVA) | payer OTHER, SELFPAY | PROVIDERS: PCP Internal Medicine; Visit Provider Urology ==

== ENCOUNTER 2023-12-28 14:35 | Outpatient (AMB) | payer OTHER, SELFPAY ==
[2023-12-28 14:36] VITALS: BP 100/66; PULSE 87; O2SAT 97; BMI 29.6
--- NOTE | 2023-12-28 14:36 | A.OFFPC_ITS ---
Vital Signs 12/28/23 14:36 Height 6 ft Weight 218 lb BMI 29.6 BP 100/66 Blood Pressure Location Rt brachial Position Sitting Pulse 87 Pulse Source Pulse Oximeter Pulse Oximetry (%) 97 Oxygen Delivery Method Room Air Intake Visit Reasons: [facility] Intake Note: Pt is here today for his [facility] Allergies No Known Allergies Allergy (Verified 12/31/23 07:37) Medication List - Last Reconciled 12/31/23 by Sharon Miles MD apixaban (Eliquis DVT-PE Treat 30D Start) 5 mg PO DIRECTED baclofen 10 mg PO BID betamethasone dipropionate 0.05% 1 appl topical BID 14 days cetirizine 10 mg PO DAILY clomiphene citrate 25 mg (1/2 x 50 mg) PO .MWF 30 days dextroamphetamine-amphetamine 15 mg ER 1 cap PO QAM dextroamphetamine-amphetamine 5 mg (Adderall) 5 mg PO DAILY escitalopram oxalate 10 mg PO DAILY hydroxyzine HCl 25 mg PO BID hydroxyzine HCl 50 mg PO BEDTIME ibuprofen 800 mg PO Q8H PRN lorazepam 2 mg PO BEDTIME PRN metaxalone mg PO ONCE mirtazapine 15 mg PO BEDTIME needle (disp) 18 G (BD Regular Bevel Lyman) As directed - draw up testosterone omeprazole 20 mg PO DAILY ondansetron 8 mg PO TID safety needles (Easy Touch FlipLock Needle) As directed - administer testosterone syringe (disposable) (BD Luer-Fuentes Syringe) Testosterone injection weekly tadalafil (Cialis) 20 mg PO DAILY PRN 90 days tadalafil (Cialis) 5 mg PO DAILY 90 days testosterone cypionate (Depo-Testosterone) 200 mg IM Q2W 4 weeks Tobacco use date assessed: 12/28/23 Dental Screening Dental Screen Date: 12/28/23 Did you have a dental visit in the last 12 months?: Yes Did you have a dental problem in the last 6 months where you did not have access to dental care?: No Was dental information given to patient?: Patient has dentist HPI [facility] HPI Details 28-year-old male with past medical histo ry significant for anxiety/depression, PTSD, lumbar disc disease with radiculopathy, ADD, and testicular hypofunction currently on Clomid, here today follow-up after recent ER visit, where he was diagnosed bilateral pulmonary emboli and an occlusive thrombus in the peroneal and posterior tibial veins. Approximately a week ago he sustained an injury to his left knee during a mountain biking which happened in [place] while he was going to a program to treat his PTSD. He was seen at a hospital in [place] and had x-rays and CT scan without contrast done, given a knee immobilizer and crutches, oxycodone for pain and told to fly back home . On 12/22/2023, he went to [facility] for his left lower extremity pain and had an MRI of his knee. He was told he had a ligamentous injury and a quadriceps tendon injury and advised to follow-up with PCP but no referral to Orthopedics was done at that time. He has been using crutches and a knee immobilizer while walking and started having intermittent sharp chest pains 12/26/2023 not accompanied by any shortness of breath, which made him go back to the emergency room now at [facility], and found to have bilateral pulmonary emboli and DVT in left lower extremity. At present patient states that chest pain has resolved, the swelling in his left lower leg started to improve but still getting pain in left knee. [facility] Medical History (Updated 12/31/23 @ 07:55 by Sharon Miles MD) Unspecified injury of left quadriceps muscle, fascia and tendon, subsequent encounter Bilateral pulmonary embolism Left leg DVT Right knee injury Elevated serum creatinine At risk for sexually transmitted disease due to partner with multiple partners Complaint of melena Chronic heartburn Epigastric direct abdominal tenderness Cervicalgia Lumbago of lumbar region with sciatica Numbness and tingling in both hands Wrist joint pain Chronic pain of both feet Hyperlipidemia Loss of libido History of chlamydia Witnessed apneic spells Loud snoring Difficulty concentrating Fatigue Erectile dysfunction History of COVID-19 Lumbar degenerative disc disease PTSD (post-traumatic stress disorder) Lumbar disc disease with radiculopathy ADD (attention deficit disorder) Surgical History No pertinent past surgical history Social History Housing: Apartment Patient Tobacco Use Status: Never used Tobacco e-Cigarette/Vaping Use: Never Used service: Yes Current occupational status: employed Cognitive needs: No Hearing needs: No Vision needs: No Questionnaire Thrive Questionnaire Date Thrive assessed: 10/09/23 KHANG-7 AMB Questionnaire KHANG-7 Date KHANG - 7 assessed: 10/09/23 Source: Developed by Drs. Shamir Ferraro, Jael Adams, Yobani Landaverde and colleagues, with an educational vidya from [employer]. Review of Systems Const All systems reviewed & are unremarkable except as noted in HPI and below Reports no additional complaints Eyes Reports no additional complaints Card Denies chest pain, Denies chest pain with activity, Denies rapid heart rate and Denies irregular heart rhythm Resp Reports no additional complaints GI Reports no additional complaints Reports no additional complaints Musc Reports as per HPI Neuro Reports as per HPI Masood/Lymph Denies easy bruising Physical exam (Primary Care) Vital Signs: Last Vital Signs Pulse 87 12/28/23 14:36 BP 100/66 12/28/23 14:36 Pulse Ox 97 12/28/23 14:36 Oxygen Delivery Method Room Air 12/28/23 14:36 BMI result Body Mass Index 29.6 Tobacco/Smoking Status: Tobacco use Status Tobacco use date assessed 12/28/23 12/28/23 14:38 Patient Tobacco Use Status Never used Tobacco 12/28/23 14:38 e-Cigarette/Vaping Use Never Used 12/28/23 14:38 Thrive Assessment: Date of Thrive Assessment Date Thrive assessed 10/09/23 12/28/23 14:38 Const General: cooperative, comfortable, no acute distress, alert and awake Orientation/consciousness: patient oriented x3 HENMT Head: Yes normocephalic General nose exam: Normal external nose present Face and sinus: Yes face symmetric Mouth: Normal oral and palatal mucosa present, oropharynx normal and moist mucous membranes Eyes General: appearance normal, both eyes and all related structures Neck Neck: Yes full ROM and Yes no lymphadenopathy Thyroid: Thyroid normal Resp Effort & Inspection: normal respiratory effort and able to speak in complete sentences Auscultation: clear to auscultation bilaterally Cardio Rate: regular rate Rhythm: regular rhythm Heart sounds: S1 normal heart sound present and S2 normal heart sound present GI Palpation (GI): Soft to palpation, Tenderness to palpation present (GI) in the epigastrum, no guarding and no masses Auscultation: normal bowel sounds Male General Exam: Yes normal external exam Back/Spine/Pelvis Thoracic/Lumbar Spine: straight leg raise negative bilaterally and paraspinal muscle tenderness bilaterally in the lower lumbar Skin Other: Minimal ecchymosis on medial aspect of knee Neuro General: patient oriented x3, gait normal, tone normal, moves all extremities and Normal light touch and pain sensation Cranial nerves: Yes CN's II-XII intact bilaterally Cognition (Neuro): normal cognition Motor exam (neuro): 5/5 motor strength present throughout Extrem Other: Minimal swelling and anteromedial aspect of left knee, slight tenderness to palpation over affected area Coding Level of Care Code Est Pt Level 4 (30154) Diagnoses Acute deep vein thrombosis (DVT) of left peroneal vein I82.452 Affected thrombotic vein of extremity: peroneal Chronicity: acute Bilateral pulmonary embolism I26.99 Unspecified injury of left quadriceps muscle, fascia and tendon, subsequent encounter S76.102D Assessment & Plan Assessment & Plan (1) Left leg DVT: Code(s): I82.402 - Acute embolism and thrombosis of unspecified deep veins of left lower extremity Category: Medical Qualifiers: Affected thrombotic vein of extremity: peroneal Chronicity: acute Qualified Code(s): I82.452 - Acute embolism and thrombosis of left peroneal vein Plan: Continue on apixaban 5 mg Eliquis treatment for DVT, repeat another venous Doppler ultrasound of left lower extremity in 3 months. Advised to call his urologist regarding whether to continue clomiphene treatment at present (2) Bilateral pulmonary embolism: Code(s): I26.99 - Other pulmonary embolism without acute cor pulmonale Category: Medical Plan: Will continue on Eliquis 5 mg 1 tablet twice a day. Repeat another CTA in 3 months . Advised to call his urologist regarding whether to continue clomiphene treatment at present (3) Unspecified injury of left quadriceps muscle, fascia and tendon, subsequent encounter: Code(s): S76.102D - Unspecified injury of left quadriceps muscle, fascia and tendon, subsequent encounter Category: Medical Plan: Patient already has an appointment be seen at [facility] for further evaluation and management. Work note given to be off work until seen by orthopedics. Advise patient to check with Orthopedics when he can go back to full duty at work Orders: Orders US venous duplex LE LT 3 Months I82.402 - Acute embolism and thrombosis of unspecified deep veins of left lower extremity CT angio chest PE protocol 3 Months I26.99 - Other pulmonary embolism without acute cor pulmonale
--- OUTSIDE RECORDS SUMMARY | 2023-12-28 14:56 | XMS_ITS | Continuity of Care Document ---
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 Phone Ginger ROQUE, Sharon Calabrese Primary Care Physician [place] [facility] [place]): [place]23 - 12/26/[address] [address]- Discharge Disposition: A-D/C Home Attending Physician: Laurie Kinney MD Admitting Physician: Laurie Kinney MD Referring Physician: Not on Staff, Referring MD Allergies, Adverse Reactions, Alerts No Known Allergies Medications Eliquis Starter Pack 5 mg oral tablet 2 tablet = 10 mg, By Mouth, 2 times a day, followed by 1 tablet by mouth twice daily for 23 days, #74 tablet, 0 Refills, Maintenance, 12/26/23 14:47:00 EDT, [id number], Partial fill upon patient request if the prescription is for a schedule I... Start Date: 12/26/23 Stop Date: 01/02/24 Status: Ordered morphine 15 mg oral tablet, immediate release 0.5 tablet = 7.5 mg, By Mouth, Every 6 hours, PRN for pain, for 3 days, # 6 tablet, 0 Refills, Acute 12/29/23 14:55:00 EDT, 12/26/23 14:55:00 EDT, Tablet, [id number], Partial fill upon patient request if the prescription is for a schedule II o... Start Date: 12/26/23 Stop Date: 12/29/23 Status: Ordered Results Radiology Reports * Exam Date Time Procedure Performing Provider Status 12/26/23 11:[address] Angio Chest Marva Yousif; Auth (Verified) Notes: (CT Angio Chest) Reason For Exam: PE suspected, Intermediate prob, positive D-dimer,;Other: RESULT: CT Angio Chest EXAMINATION: CT Angio Chest INDICATION: Hx of Present Illness: knee dislocation; Reason: Other:; PE suspected, Intermediate prob, positive D-dimer,; Clinical Question(s): Pulmonary Embolism TECHNIQUE: Spiral CTA of the chest was performed after rapid IV contrast administration without cardiac gating, triggered by an HAWK on the main pulmonary artery. Images are formatted in multiple planes using 2-D multiplanar and 3-D maximum intensity projection. 60 cc of Isovue 300 was administered i ntravenously. Weight-based protocol using automatic tube modulation was used to optimize exposure parameters. CTDIvol Body: 4.17 mGy, DLP Body: 364 mGy*cm. COMPARISONS: None. ANGIOGRAPHIC FINDINGS: Positive for moderate volume lobar, segmental and subsegmental pulmonary emboli predominate in the right pulmonary artery branches. There is a small segmental embolism in a left lower lobe anterior segmental branch. Pulmonary arteries are normal in caliber. RV to LV ratio is slightly greater than one indicative of right heart strain. No acute aortic abnormality seen on this study performed without cardiac gating. 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 Trachea and Airways: Patent without evidence of tracheal or endobronchial lesion. Lungs and Pleura: Mild bibasilar atelectasis. No focal consolidation. No effusion or pneumothorax. Mediastinum and ramirez: No mediastinal masses. No mediastinal or hilar lymphadenopathy. No esophagealabnormality. Heart: Heart is normal in size. No pericardial effusion. No coronary arterial calcifications. Chest Wall Soft Tissues: Normal. Diaphragm and upper abdomen: No significant abnormality. Bones: No acute abnormality. IMPRESSION: Positive for moderate volume pulmonary emboli, predominantly on the right, involving lobar, segmental and subsegmental pulmonary artery branches, with a smaller embolism seen in left lower lobe segmental pulmonary artery branch. There is evidence of right heart strain, meeting criteria for submassive PE. Findings were communicated with Cynthia Pedroza PA-C via [employer] message at 11:54 AM on 12/26/2023. WSN: [id number] Ordering Physician: Cynthia Pedroza Dictated By: Karlo Gonsalez MD Dictated Date/Time: 12/26/23 12:03 p Reviewed By: Karlo Gonsalez MD Signed By: Karlo Gonsalez MD Signed Date/Time: 12/26/23 12:03 pm Transcribed By: RONY Transcribed Date/Time: 12/26/23 12:01 pm * Exam Date Time Procedure Performing Provider Status 12/26/23 10:39 AM US Doppler Ext Lower Venous Left Elo Case; Auth (Verified) Notes: (US Doppler Ext Lower Venous Left) Reason For Exam: Pain in limb;Other: RESULT: US Doppler Ext Lower Venous Left US Doppler Ext Lower Venous Left Reason: History of left knee dislocation with immobilization. Concern for deep venous thrombosis. COMPARISON: None IMAGING TECHNIQUE: Ultrasound of the veins from the groin through the calf was performed using grayscale, color, and spectral Doppler ultrasound assessing for complete compressibility and normal flowcharacteristics. FINDINGS: Common femoral vein: Patent. No thrombosis. Femoral vein: Patent. No thrombosis. Popliteal vein: Patent. No thrombosis. Gastrocnemius veins: The visualized portions are patent without evidence of thrombosis. Peroneal veins: Long segment occlusive thrombus near the tibioperoneal trunk extending into the calf. Posterior tibial veins: Occlusive thrombus in one of the posterior tibial veins extending at least 6 cm in segment. Contralateral common femoral vein: Patent. No thrombosis. OTHER FINDINGS: None. IMPRESSION: Occlusive thrombus in the peroneal and one of the posterior tibial veins greater than 5 cm in length. Preliminary results were conveyed via secure message by Dr. Connors to Cynthia FLORES on 12/26/2023 at 10:45 AM with understanding acknowledged. I have personally reviewed the images and I agree with this report. WSN: [id number] Ordering Physician: Cynthia Pedroza Dictated By: Aviva Connors MD Dictated Date/Time: 12/26/23 11:04 a Reviewed By: Shahriar Nichols MD Signed By: Shahriar Nichols MD Signed Date/Time: 12/26/23 11:09 am Transcribed By: RONY Transcribed Date/Time: 12/26/23 11:00 am * Exam Date Time Procedure Performing Provider Status 12/26/23 8:56 AM Tibia/Fibula 2 Views Left Iraida Gan; Auth (Verified) Notes: (Tibia/Fibula 2 Views Left) Reason For Exam: Trauma RESULT: Tibia/Fibula 2 Views Left Tibia/Fibula 2 Views Left INDICATION: Knee dislocation; Reason: Trauma; Clinical Question(s): Fracture COMPARISON: None. FINDINGS: No fractures or bone lesions. Visualized joints are normal. Normal soft tissues. IMPRESSION: No acute fracture or osseous abnormality. I have personally reviewed the images and I agree with this report. WSN: [id number] Ordering Physician: Cynthia Pedroza Dictated By: Gianni Olmstead MD Dictated Date/Time: 12/26/23 9:26 am Reviewed By: John Lua MD, V Signed By: John Lua MD, V Signed Date/Time: 12/26/23 9:31 am Transcribed By: CSB Transcribed Date/Time: 12/26/23 9:24 am * Exam Date Time Procedure Performing Provider Status 12/26/23 8:56 AM Knee 1 or 2 Views Left Malik , Ct ; Auth (Verified) Notes: (Knee 1 or 2 Views Left) Reason For Exam: Trauma RESULT: Knee 1 or 2 Views Left Knee 1 or 2 Views Left, 2 views INDICATION: knee dislocation; Reason: Trauma; Clinical Question(s): Fracture COMPARISON: None. FINDINGS: No bone lesions or fractures. No arthritic changes. No osteochondral defects or intra-articular loose bodies. Tiny joint effusion. IMPRESSION: Tiny joint effusion with no acute fracture or osseous abnormality. I have personally reviewed the images and I agree with this report. WSN: [id number] Ordering Physician: Cynthia Pedroza Dictated By: Gianni Olmstead MD Dictated Date/Time: 12/26/23 9:26 am Reviewed By: John Lua MD, V Signed By: John Lua MD, V Signed Date/Time: 12/26/23 9:31 am Transcribed By: CSB Transcribed Date/Time: 12/26/23 9:16 am * Exam Date Time Procedure Performing Provider Status 12/26/23 8:56 AM Chest 2 Views Frontal and Lat Malik , Ct; Auth (Verified) Notes: (Chest 2 Views Frontal and Lat) Reason For Exam: Angina RESULT: Chest 2 Views Frontal and Lat Chest 2 Views Frontal and Lat Hx of Present Illness: knee dislocation; Reason: Angina; Clinical Question(s): CHF COMPARISON: None. FINDINGS: LINES AND TUBES: None. LUNGS AND PLEURA: Clear lungs. Normal pulmonary vascularity. No pleural effusion. No pneumothorax. HEART, MEDIASTINUM AND RAMIREZ: Heart is normal in size. Normal mediastinal and hilar contour. BONES AND SOFT TISSUES: No acute abnormality. IMPRESSION: No acute abnormality. WSN: [id number] Ordering Physician: Cynthia Pedroza Dictated By: John Lua MD, V Dictated Date/Time: 12/26/23 9:02 am Reviewed By: John Lua MD, V Signed By: John Lua MD, V Signed Date/Time: 12/26/23 9:02 am Transcribed By: RONY Transcribed Date/Time: 12/26/23 9:01 am Vital Signs Most recent to oldest [Reference Range]: 1 2 Height 183 cm (12/26/23 6:41 AM) Oxygen Saturation [94-100 %] 99 % (12/26/23 1:51 PM) 100 % (12/26/23 6:41 AM) Pulse Rate [55-90 bpm] 69 bpm (12/26/23 1:51 PM) 74 bpm (12/26/23 6:41 AM) Blood Pressure [90-138/55-84 mm Hg] 107/ 60mm Hg (12/26/23 1:51 PM) 124/73mm Hg (12/26/23 6:41 AM) Respiratory Rate [16-30 br/min] 17 br/mi n (12/26/23 1:51 PM) 17 br/min (12/26/23 6:41 AM) Temperature [96.8-100.4 DegF] 98.2 DegF (12/26/23 1:51 PM) 97.7 DegF (12/26/23 6:41 AM) Mode of Delivery (Oxygen) Room air (12/26/23 1:51 PM) Room air (12/26/23 6:41 AM) Blood pressure sites Arm, left (12/26/23 1:51 PM) Arm, left (12/26/23 6:41 AM) Temperature Route Oral (12/26/23 1:51 PM) Oral (12/26/23 6:41 AM) Dry Weight 102 kg (12/26/23 6:41 AM) Social History Social History Type Response Sex Male EKG study * Event Display: ECG 12-Lead Authored Date: Please click on pdf link to open report * Event Display: ECG 12-Lead Authored Date: Ventricular Rate: 73 BPM Atrial Rate: 73 BPM P-R Interval: 160 ms QRS Duration: 96 ms Q-T Interval: 392 ms QTC Calculation(Bazett): 431 ms P [place]: 32 degrees R [place]: 33 degrees T [place]: 9 degrees Normal sinus rhythm Normal ECG No previous ECGs available Confirmed by Finesse Johnston ([id number]) on 12/26/2023 12:41:40 PM Dendron: Finesse Johnston Note * Cynthia Abreu: PERFORM, SIGN, VERIFY Event Display: Patient Education Handout Authored Date: * Cynthia Abreu: PERFORM Event Display: Patient Education Leaflets Authored Date: [id number] Multiple Documents ?? [id number] Apixaban Brand Name(s): Eliquis??; also available generically ?? IMPORTANT WARNING: If you have atrial fibrillation (a condition in which the heart beats irregularly, increasing the chance of clots forming in the body, and possibly causing strokes) and are taking apixaban to help prevent strokes or serious blood clots, you are at a higher risk of having a stroke after you stop taking this medication. Do not stop taking apixaban without talking to your doctor. Continue to take apixaban even if you feel well. Be sure to refill your prescription before you run out of medication so that you will not miss any doses of apixaban. If you need to stop taking apixaban, your doctor mayprescribe another anticoagulant ('blood thinner') to help prevent a blood clot from forming and causing you to have a stroke. If you have epidural or spinal anesthesia or a spinal puncture while taking a 'blood thinner' such as apixaban, you are at risk of having a blood clot form in or around your spine that could cause you to become paralyzed. Tell your doctor if you have an epidural catheter that is left in your body or have or have ever had repeated epidural or spinal punctures, spinal deformity, or spinal surgery. Tell your doctor and pharmacist if you are taking any of the following: anagrelide (Agrylin); aspirin and other nonsteroidal anti-inflammatory drugs (NSAIDs) such as ibuprofen (Advil, Motrin, others),indomethacin (Indocin, Tivorbex), ketoprofen, and naproxen (Aleve, Anaprox, others); cilostazol (Ple aaron); clopidogrel (Plavix); dipyridamole (Persantine); eptifibatide (Integrilin); heparin; prasugrel (Effient); ticagrelor (Brilinta); ticlopidine; tirofiban (Aggrastat), and warfarin (Coumadin, Jantoven). If you experience any of the following symptoms, call your doctor immediately: muscle weakness (especially in your legs and feet), numbness or tingling (especially in your legs), or loss of control of your bowels or bladder. Your doctor or pharmacist will give you the insulation blower's patient information sheet (Medication Guide) when you begin treatment with apixaban and each time you refill your prescription. Read the information carefully and ask your doctor or pharmacist if you have any questions. You can also visit the Food and Drug Administration (FDA) website (https://www.fda.gov/Drugs/DrugSafety/hdu636328.htm) or the insulation blower's website to obtain the Medication Guide. Talk to your doctor about the risks of taking apixaban. WHY is this medicine prescribed? Apixaban is used to help prevent strokes or blood clots in people who have atrial fibrillation (a condition in which the heart beats irregularly, increasing the chance of clots forming in the body and possibly causing strokes) that is not caused by heart valve disease. Apixaban is also used to prevent deep vein thrombosis (DVT; a blood clot, usually in the leg) and pulmonary embolism (PE; a bloodclot in the lung) in people who are having hip replacement or knee replacement surgery. Apixaban isalso used to treat DVT and PE and may be continued to prevent DVT and PE from happening again afterthe initial treatment is completed. Apixaban is in a class of medications called factor Xa inhibitors. It works by blocking the action of a certain natural substance that helps blood clots to form. HOW should this medicine be used? Apixaban comes as a tablet to take by mouth. It is usually taken with or without food twice a day. When apixaban is taken to prevent DVT and PE after hip or knee replacement surgery, the first dose should be taken at least 12 to 24 hours after surgery. Apixaban is usually taken for 35 days after a hip replacement surgery and for 12 days after knee replacement surgery. Take apixaban at around the same times every day. Follow the directions on your prescription label carefully, and ask your doctor or pharmacist to explain any part you do not understand. Take apixaban exactly as directed. Do nottake more or less of it or take it more often than prescribed by your doctor. If you are unable to swallow the tablets, you can crush them and mix with water, apple juice, or applesauce. Swallow the mixture right after you prepare it. Apixaban can also be given in certain types of feeding tubes. Ask your doctor if you should take this medication in your feeding tube. Follow your doctor's directions carefully. Continue to take apixaban even if you feel well. Do not stop taking apixaban without talking to your doctor. If you stop taking apixaban, your risk of a blood clot may increase. Are there OTHER USES for this medicine? This medication may be prescribed for other uses; ask your doctor or pharmacist for more information. What SPECIAL PRECAUTIONS should I follow? Before taking apixaban, ??? tell your doctor and pharmacist if you are allergic to apixaban, any other medications, or any of the ingredients in apixaban tablets. Ask your pharmacist or check the Medication Guide for a listof the ingredients. ??? Tell your doctor and pharmacist what prescription and nonprescription medications, vitamins, nutritional supplements, and herbal products you are taking or plan to take while taking apixaban. Your doctor may need to change the doses of your medications or monitor you carefully for side effects.. ??? The following nonprescription or herbal products may interact with apixaban: Rowan's wort; aspirin; NSAIDs (such as ibuprofen [Advil, Motrin] and naproxen [Aleve, Naprosyn]). Be sure to let your doctor and pharmacist know that you are taking these medications before you start taking apixaban. Do not start any of these medications while taking apixaban without discussing with your healthcare provider. ??? you should know that apixaban may interact with certain medicati ons that may be used to treat you if you have a stroke or other medical emergency. In case of an emergency, you or a family member should tell the doctor or emergency room staff who treat you that you are taking apixaban. ??? tell your doctor if you have an artificial heart valve or if you have heavy bleeding anywhere in your body that cannot be stopped. Your doctor will probably tell you not to take apixaban. ??? tell your doctor if you have or have ever had any type of bleeding problem, antiphospholipid syndrome (APS; a condition that causes blood clots), or kidney or liver disease. ??? tell your doctor if you are , plan to become , or are . If you become while taking apixaban, call your doctor. ??? if you are having surgery, including dental surgery, tell the doctor or dentist that you are taking apixaban. Your doctor may tell you to stop taking apixaban before the surgery or procedure. If you need to stop taking apixaban because you are havingsurgery, your doctor may prescribe a different medication to prevent blood clots during this time. Your doctor will tell you when you should start taking apixaban again after your surgery. Follow these directions carefully. ??? Call your doctor right away if you fall or injure yourself, especially if you hit your head. Your doctor may need to check you. What SPECIAL DIETARY instructions should I follow? Unless your doctor tells you otherwise, continue your normal diet. What should I do IF I FORGET to take a dose? Take the missed dose as soon as you remember it. However, if it is almost time for the next dose, skip the missed dose and continue your regular dosing schedule. Do not take a double dose to make up for a missed one. What SIDE EFFECTS can this medicine cause? Some side effects can be serious. If you experience any of these symptoms, call your doctor immediately or get emergency medical treatment: ??? bleeding gums ??? nosebleeds ??? heavy vaginal bleeding ??? red, pink, or brown urine ??? red or black, tarry stools ??? coughing up or vomiting blood or material that looks like coffee grounds ??? swelling or joint pain ??? headache ??? rash ??? chest pain or tightness ??? swelling of the face or tongue ??? trouble breathing ??? wheezing ??? feeling dizzy or faint Apixaban prevents blood from clotting normally, so it may take longer than usual for you to stop bleeding if you are cut or injured. This medication may also cause you to bruise or bleed more easily.Call your doctor right away if bleeding or bruising is unusual, severe, or cannot be controlled. Apixaban may cause other side effects. Call your doctor if you have any unusual problems while taking this medication. If you experience a serious side effect, you or your doctor may send a report to the Food and Drug Administration's (FDA) MedWatch Adverse Event Reporting program online (https://www.fda.gov/Safety/MedWatch) or by phone ( ). What should I know about STORAGE and DISPOSAL of this medication? Keep this medication in the container it came in, tightly closed, and out of reach of children. Store it at room temperature and away from light, excess heat and moisture (not in the bathroom). Unneeded medications should be disposed of in special ways to ensure that pets, children, and otherpeople cannot consume them. However, you should not flush this medication down the toilet. Instead,the best way to dispose of your medication is through a medicine take-back program. Talk to your pharmacist or contact your local garbage/recycling department to learn about take-back programs in your community. See the FDA's Safe Disposal of Medicines website (https://goo.gl/c4Rm4p) for more information if you do not have access to a take-back program. It is important to keep all medication out of sight and reach of children as many containers (such as weekly pill minders and those for eye drops, creams, patches, and inhalers) are not child-resistant and young children can open them easily. To protect young children from poisoning, always lock safety caps and immediately place the medication in a safe location ??? one that is up and away and out of their sight and reach. https://www.upandaway.org What should I do in case of OVERDOSE? In case of overdose, call the poison control helpline at . Information is also available online at https://www.poisonhelp.org/help. If the victim has collapsed, had a seizure, has trouble breathing, or can't be awakened, immediately call emergency services at 911. Symptoms of overdose may include the following: ??? unusual bleeding or bruising ??? red, brown, or pink urine ??? red or black, tarry stools ??? coughing up or vomiting blood or material that looks like coffee grounds What OTHER INFORMATION should I know? Keep all appointments with your doctor. Do not let anyone else take your medication. Ask your pharmacist any questions you have about refilling your prescription. It is important for you to keep a written list of all of the prescription and nonprescription (pwnp-fuc-mxowbus) medicines you are taking, as well as any products such as vitamins, minerals, or otherdietary supplements. You should bring this list with you each time you visit a doctor or if you areadmitted to a hospital. It is also important information to carry with you in case of emergencies. This report on medications is for your information only, and is not considered individual patient advice. Because of the changing nature of drug information, please consult your physician or pharmacist about specific clinical use. The [employer] represents that the information provided hereunder was formulated with a reasonable standard of care, and in conformity with professional standards in the field. The [employer] makes no representations or warranties, express or implied, including, but not limited to, any implied warranty of merchantability and/or fitness for a particular purpose, with respect to such information and specifically disclaims all such warranties. Users are advised that decisions regarding drug therapy are complex medical decisions requiring the independent, informed decision of an appropriate health tree care foreman, and the information is provided for informational purposes only. The entire monograph for a drug should be reviewed for a thorough understanding of the drug's actions, uses and side effects. The [employer] does not endorse or recommend the use of any drug.The information is not a substitute for medical care. AHFS?? Patient Medication Information???. ?? Copyright, 2023. The [employer]??, [address], [place], [place]. All Rights Reserved. Duplication for commercial use must be authorized by [facility]. Selected Revisions: January 18, 2023. AHFS?? Patient Medication Information???. ?? Copyright, 2023 ?? * Kasia FLORES, Cynthia Carter: PERFORM Event Display: Patient Education Leaflets Authored Date: [id number] Multiple Documents ?? [id number] RICE RICE stands for rest, ice, compression, and elevation. Doing these things helps limit pain and swelling after an injury. RICE also helps injuries heal faster. Use RICE for sprains, strains, and severe bruises or bumps. Follow the tips on this handout and begin RICE as soon as possible after an injury. Rest Pain is your body???s way of telling you to rest an injured area. Whether you have hurt an elbow, hand, foot, or knee, limiting its use will prevent further injury and help you heal. ?? Ice Applying ice right after an injury helps prevent swelling and reduce pain. Don???t place ice directly on your skin. ??? Use a cold pack. Or make an ice pack by putting ice cubes in a plastic bag thatseals at the top. Wrap the cold pack or ice pack in a thin cloth. Place it over the injured area. ??? Ice for?? 10??minutes every?? 3??hours. Don???t ice for more than?? 20??minutes at a time. ?? Compression Putting pressure (compression) on an injury helps prevent swelling and provides support. ??? Wrap the injured area firmly with an elastic bandage. If your hand or foot tingles, becomes discolored, orfeels cold to the touch, the bandage may be too tight. Rewrap it more loosely. ??? If your bandage becomes too loose, rewrap it. ??? Don't wear an elastic bandage overnight. ?? Elevation Keeping an injury elevated helps reduce swelling, pain, and throbbing. Elevation is most effective??when the injury is kept elevated higher than the heart. ?? When to call your healthcare provider Call your healthcare provider if you notice any of the following: ??? Fingers or toes feel numb, tingly, are cold to the touch, or change color. ??? Skin looks shiny or tight. ??? Pain, swelling, or bruising gets worse and isn't improved with elevation. ??? Signs of infection. These include warm skin, redness, fluid leaking, or bad smell coming from the injured body part. ?? Last Reviewed Date: 2021 ?? [id number] [employer]. All rights reserved. This information is not intended as a substitute for professional medical care. Always follow your healthcare professional's instructions. ?? * Cynthia Abreu: PERFORM Event Display: Patient Education Leaflets Authored Date: [id number] Multiple Documents ?? [id number] Deep Vein Thrombosis (DVT) Deep vein thrombosis (DVT) occurs when a blood clot (thrombus) forms in a deep vein. This happens most often in the leg. It can also happen in the arms or other parts of the body. A part of the clot called an embolus can break off and travel to the lungs. When this happens, it???s called a pulmonary embolism (PE). PE is a medical emergency. It can cut off blood flow and lead to . Both DVT and PE are closely related. Together, they are often referred to by the term venous thromboembolism (VTE). Risk factors for DVT Anything that slows blood flow, injures the lining of a vein, or increases blood clotting can make you more prone to having DVT. This includes the following: ??? Long periods without movement (such as when sitting for many hours at a time or when recovering from major surgery or illness) ??? Estrogen (female hormone) therapy, such as hormone replacement therapy (HRT) or control pills ??? Fractured hip or leg ??? Major surgery or joint replacement ??? Major trauma or spinal cord injury ???Cancer ??? Family history ??? Excess weight or obesity ??? Smoking ??? Older age ??? Past history of a DVT ??? Inherited clotting disorders ?? Symptoms DVT does not always cause symptoms. When symptoms do occur, they may appear around the site of the DVT, such as in the leg. Possible symptoms include: ??? Swelling ??? Pain ??? Warmth ??? Redness ???Tenderness ?? Home care ??? You were likely prescribed blood thinners (anticoagulants). They may be given as pills (oral) or shots (injections). Follow all instructions when using these medicines. Note: Don't takeblood thinners with other medicines, herbal remedies, or supplements without talking to your provider first. Certain medicines or products can affect how blood thinners work. ??? Follow your provider???s instructions about activity and rest. ??? If support or compression stockings are prescribed, wear them as directed. These may help improve blood flow in the legs. ??? When sitting or lying down,move your ankles, toes and knees often. This may also help improve blood flow in the legs. ?? Follow-up care Follow up with your healthcare provider, or as advised. If imaging tests were done, they may need further review by a doctor. You will be told of any new findings that may affect your care. ?? When to get medical advice Call your healthcare provider right away if any of these occur: ??? New or increased swelling, pain, soreness, warmth, or redness, in the leg, arm, or other area ??? Blood in the urine ??? Bleeding with bowel movements ?? Call 911 Call 911??if any of these occur: ??? Bleeding from the nose, gums, a cut, or vagina ??? Heavy or uncontrolled bleeding ??? Trouble breathing ??? Chest pain or discomfort that worsens with deep breathing or coughing ??? Coughing (may cough up blood) ??? Fast heartbeat ??? Sweating ??? Anxiety ??? Lightheadedness, dizziness, or fainting ?? Last Reviewed Date: 2021 ?? [id number] [employer]. All rights reserved. This information is not intended as a substitute for professional medical care. Always follow your healthcare professional's instructions. ?? * Kasia FLORES, Cynthia Carter: PERFORM Event Display: Patient Education Leaflets Authored Date: [id number] Multiple Documents ?? [id number] Discharge Instructions for Pulmonary Embolism A deep vein thrombosis (DVT) is a blood clot in a large vein deep in a leg, arm, or elsewhere in the body. The clot can separate from the vein, travel to the lungs, and cut off blood flow. This is a pulmonary embolism (PE).??Pulmonary embolism is very serious and may cause if the clot is large or there are multiple clots.?? Home care Taking care of yourself is very important. To help prevent more blood clots from forming, follow your healthcare provider's instructions. Do the following: ??? Take your medicines exactly??as instructed. Don???t skip doses.??If you miss a dose, call your healthcare provider and ask what you should do. ??? Have all lab tests as recommended. This is very important when you take medicines to prevent blood clots.? If your healthcare provider has instructed you to do so, wear elastic (compression stockings). ??? Get up and get moving. ??? While sitting for long periods of time, move your knees, ankles, feet, and toes. ?? Lifestyle changes To help prevent problems with your heart and blood vessels, do the following:? If you smoke, get help to quit. Talk with your healthcare provider about medicines and programs that can help. ??? Stay at a healthy weight.??If you are overweight, talk to your healthcare provider about losing weight. ??? Try to exercise at least 30 minutes on most days. Before starting an exercise program,??talkwith your healthcare provider. ??? When traveling by car, make frequent stops??to??get??up??and move around. ??? On long airplane rides,??get up and move around when possible.??If you can???t get up,wiggle your toes, move your ankles, and tighten your calves to keep your blood moving. ?? Follow-up care Make a follow-up appointment as directed. Have your lab work done as directed. ?? When to call your healthcare provider Call your healthcare provider right away??if you have: ??? Pain, swelling, and redness in your leg,arm, or other body area. These symptoms may mean another blood clot. ??? Blood in your urine ??? Bleeding with bowel movements ??? Bleeding from the nose, gums, a cut, or vagina ?? Call 911 Call?? 911 if you have??symptoms of a blood clot in the lungs:? Chest pain ??? Trouble breathing ??? Coughing (may cough up blood) ??? Fast heartbeat ??? Sweating ??? Fainting Also call 911 if you have heavy or uncontrolled bleeding. If you are taking a blood thinner, you have an increased chance of bleeding. ?? Last Reviewed Date: 2021 ?? [id number] [employer]. All rights reserved. This information is not intended as a substitute for professional medical care. Always follow your healthcare professional's instructions. ?? Patient Care team information Care Team Personnel Name: Ginger ROQUE , Sharon Calabrese Position: Reference Physician Member Role: PCP Address: Address: [address], [place] [address]
== END 2023-12-28 15:26 | disposition home or self-care (01) ==
LOC: HO.HMCC 14:35
PROVIDERS: PCP Internal Medicine; Visit Provider Internal Medicine
DX: I82.452 Acute embolism and thrombosis of left peroneal vein (principal); I26.99 Other pulmonary embolism without acute cor pulmonale; S76.102D Unspecified injury of left quadriceps muscle, fascia and tendon, subsequent encounter

== ENCOUNTER → 2023-12-28 14:35 | Outpatient (BNVA) | payer OTHER, SELFPAY | PROVIDERS: PCP Internal Medicine; Visit Provider Internal Medicine | DX: I82.452 Acute embolism and thrombosis of left peroneal vein (principal); I26.99 Other pulmonary embolism without acute cor pulmonale; S76.102D Unspecified injury of left quadriceps muscle, fascia and tendon, subsequent encounter | CPT/HCPCS: 99212 ==

== ENCOUNTER 2024-02-16 12:35 | Outpatient (REF) | payer OTHER, SELFPAY ==
--- OUTSIDE RECORDS SUMMARY | 2024-02-16 12:39 | XMS_ITS ---
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 Role Phone Ginger ROQUE, Sharon Sewell Primary Care Provider Un available Talisha Lau Jenniffer [phone] Encounters Encounter Location Date Provider Diagnosis [facility] [address] [place] [address] 02/12/2024 Talisha Lau Plan Of Treatment Next Appt Details Provider Name:Talisha Lau , 04/16/2024 08:30:00 AM, [address] [facility], [place], [address], Progress Notes * Naseem MEHTA RDOB:[birth year] (28 yo M)Acc No.[id number]:02/12/2024 Progress Notes Patient:?Naseem MEHTA Provider:?Talisha Lau DPM :1995???Age:28 Y???Sex:Male Juan Jose e:02/12/2024 Address:[address] [place], [place] [id number] Pcp:Emma Molina Subjective: * Chief Complaints: * ??? * Medical History:? Objective: * Vitals:? Assessment: Plan: * Treatment: * Images: * The named appointment provid er may or may not be the originator of this progress note, and it is not deemed complete until electronically signed by the appointment provider. Sign off status: Pending * Provider:?Talisha Lau DPM Date:?2023 Generated for Erendira lopez/Prisca/Katlynitting on:?02/16/2024 12:39 PM EST
--- OUTSIDE RECORDS SUMMARY | 2024-02-16 12:39 | XMS_ITS | Continuity of Care Document ---
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 It does not include entries that were removed or entered in error. 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 Medication Details Route Status Patient Instructions Prescription Expires Prescription Number Last Dispense Date Ordering Provider Order Date Order Qty Source ACETAMINOPH EN-CODEINE (ACETAMINOP HEN WITH CODEINE), 300MG-30MG, TABLET, ORAL, MALLINKRT PHARM, 100 ea. BOTTLE Active [id number] 4 2023 60 Pharmac y Data Transac tion Service Facilit y ALBUTEROL SULFATE HFA (albuterol sulfate), 90 MCG, HFA AER AD, INHALATION, [facility], 8.5 g CANISTER Active [id number] 3 2023 8.5 Pharmac y Data Transac tion Service Facilit y CLOMID (clomiphene citrate), 50 MG, TABLET, ORAL, FANTA PHARMAC, 30 ea. BLIST PACK Cancele d [id number] : 2023 0 Pharmac y Data Transac tion Service Facilit y CLOMID (clomiphene citrate), 50 MG, TABLET, ORAL, FANTA PHARMAC, 30 ea. BLIST PACK Active [id number] 2023 14 Pharmac y Data Transac tion Service Facilit y CLOMID (clomiphene citrate), 50 MG, TABLET, ORAL, FANTA PHARMAC, 30 ea. BLIST PACK Active [id number] 4 2023 14 Pharmac y Data Transac tion Service Facilit y CLOMID (clomiphene citrate), 50 MG, TABLET, ORAL, FANTA PHARMAC, 30 ea. BLIST PACK Active [id number] 4 2023 14 Pharmac y Data Transac tion Service Facilit y CLOMID (clomiphene citrate), 50 MG, TABLET, ORAL, FANTA PHARMAC, 30 ea. BLIST PACK Active [id number] 4 2023 14 Pharmac y Data Transac tion Service Facilit y CLOMID (clomiphene citrate), 50 MG, TABLET, ORAL, FANTA PHARMAC, 30 ea. BLIST PACK Active [id number] 4 2023 14 Pharmac y Data Transac tion Service Facilit y DEX/AMPHET (ADDERALL XR EQ) 15 MG CP24 Take or use exactly as directed .May impair driving. This prescrip tion cannot be refilled .Federal law prohibit s transfer of prescrip tion. Active 02/18/2024 [id number] 4 [address] [place] [address] DEX/AMPHET (ADDERALL XR EQ) 15 MG CP24 Take or use exactly as directed .May impair driving. This prescrip tion cannot be refilled .Federal law prohibit s transfer of prescrip tion. 12/13/2023 [id number] [address] [place] [address] Group Dextroamphe tamine Saccharate, Amphetamine Aspartate, Dextroamphe tamine Sulfate and Amphetamine Sulfate ([employer] 100 TABLET in 1 BOTTLE Active [id number] 06/14/19 2 4 2023 60 Pharmac y Data Transac tion Service Facilit y Dextroamphe tamine Saccharate, Amphetamine Aspartate, Dextroamphe tamine Sulfate and Amphetamine Sulfate ([employer] 100 TABLET in 1 BOTTLE Cancele d [id number] : 2023 0 Pharmac y Data Transac tion Service Facilit y DICLOFENAC SODIUM (DICLOFENAC SODIUM), 75 MG, TABLET DR, ORAL, PACK PHARMACEUT, 60 ea. BOTTLE Active [id number] 4 2023 20 Pharmac y Data Transac tion Service Facilit y DULOXETINE HCL (duloxetine HCl), 20 MG, CAPSULE DR, ORAL, AJANTA PHARMA L, 60 ea. BOTTLE Active [id number] 2023 30 Pharmac y Data Transac tion Service Facilit y DULOXETINE HCL (duloxetine HCl), 20 MG, CAPSULE DR, ORAL, AJANTA PHARMA L, 60 ea. BOTTLE Active [id number] 4 2023 30 Pharmac y Data Transac tion Service Facilit y DULOXETINE HCL (duloxetine HCl), 20 MG, CAPSULE DR, ORAL, AJANTA PHARMA L, 60 ea. BOTTLE Active [id number] 2023 30 Pharmac y Data Transac tion Service Facilit y LORAZEPAM (lorazepam) , 1 MG, TABLET, ORAL, AUROBINDO PHARM, 500 ea. BOTTLE Cancele d [id number] : 2023 0 Pharmac y Data Transac tion Service Facilit y LORAZEPAM (lorazepam) , 1 MG, TABLET, ORAL, AUROBINDO PHARM, 500 ea. BOTTLE Active [id number] 4 2023 60 Pharmac y Data Transac tion Service Facilit y LORAZEPAM (lorazepam) , 1 MG, TABLET, ORAL, LEADING PHARMA, 500 ea. BOTTLE Active [id number] 4 2023 60 Pharmac y Data Transac tion Service Facilit y LORAZEPAM (lorazepam) , 2 MG, TABLET, ORAL, AUROBINDO PHARM, 500 ea. BOTTLE Cancele d [id number] : 2022 0 Pharmac y Data Transac tion Service Facilit y LORAZEPAM (lorazepam) , 2 MG, TABLET, ORAL, TEVA [place], 100 ea. BOTTLE Active [id number] 3 2022 30 Pharmac y Data Transac tion Service Facilit y LORAZEPAM (lorazepam) , 2 MG, TABLET, ORAL, TEVA [place], 100 ea. BOTTLE Cancele d [id number] : 2023 0 Pharmac y Data Transac tion Service Facilit y Meloxicam (Meloxicam) , 15mg, Tablet, Oral, [employer] Pharmac, 1000 Ea. Bottle Cancele d [id number] : 2023 0 Pharmac y Data Transac tion Service Facilit y METHOCARBAM OL (methocarba mol), 750 MG, TABLET, ORAL, GRANULES PHARMA, 100 ea. BOTTLE Active [id number] 4 2023 42 Pharmac y Data Transac tion Service Facilit y MIRTAZAPINE (MIRTAZAPIN E), 30MG, TABLET, ORAL, CARACO PHARM, 30 ea. BOTTLE Cancele d [id number] : 2023 0 Pharmac y Data Transac tion Service Facilit y MIRTAZAPINE (MIRTAZAPIN E), 30MG, TABLET, ORAL, CARACO PHARM, 30 ea. BOTTLE Cancele d [id number] : 2023 0 Pharmac y Data Transac tion Service Facilit y MIRTAZAPINE (MIRTAZAPIN E), 45MG, TABLET, ORAL, CARACO PHARM, 30 ea. BOTTLE Active [id number] 4 2023 90 Pharmac y Data Transac tion Service Facilit y ONDANSETRON ODT (ONDANSETRO N), 8 MG, TAB RAPDIS, ORAL, AUROBINDO PHARM, 30 ea. BLIST PACK Active [id number] 4 2023 30 Pharmac y Data Transac tion Service Facilit y TRAZODONE HCL (trazodone HCl), 50 MG, TABLET, ORAL, TEVA [place], 100 ea. BOTTLE Cancele d [id number] : 2023 0 Pharmac y Data Transac tion Service Facilit y TRAZODONE HCL (trazodone HCl), 50 MG, TABLET, ORAL, TEVA [place], 100 ea. BOTTLE Active [id number] 4 2023 30 Pharmac y Data Transac tion Service Facilit y TRAZODONE HCL (trazodone HCl), 50 MG, TABLET, ORAL, TEVA [place], 100 ea. BOTTLE Active [id number] 4 2023 60 Pharmac y Data Transac tion Service Facilit y TRAZODONE HCL (trazodone HCl), 50 MG, TABLET, ORAL, TEVA [place], 100 ea. BOTTLE Active [id number] 4 2023 30 Pharmac y Data Transac tion Service Facilit y Allergies, Adverse Reactions, Alerts Combined list of allergies from Department of Defense and Veterans Affairs facilities. It does not include entries that were removed or entered in error. Substance Category Reaction Severity Reaction type Status Date Reported Comments Source No Known Allergies Drug allergy (disorder) active 12/28/2022 66 [facility] Group Immunizations Combined list of available immunizations from the Department of Defense and Veterans Affairs facilities. Immunization Series Date Given Administered By Site Reaction Lot Number CVX Code Drug Yarn Rewinder Status Comments Source Influenza, injectable, quadrivalent, preservative free 0 2021 [id number] 150 Cole Martinine (SKB) complet ed Influenza , injectabl e, quadrival ent, preservat maritza free DoD typhoid Vi capsular polysaccharid e vaccine 2 2021 [id number] Sanofi Pasteur ([facility]) complet ed typhoid Vi capsular polysacch aride vaccine DoD meningococcal polysaccharid e (groups A, C, Y and W-135) diphtheria toxoid conjugate vaccine (MCV4P) 2 2021 [id number] 114 Sanofi Pasteur (PMC) complet ed meningoco ccal polysacch aride (groups A, C, Y and W-135) diphtheri a toxoid conjugate vaccine (MCV4P) DoD Human Papillomaviru s 9-valent vaccine 2 2021 [id number] 165 Merck (MSD) complet ed Human Papilloma virus 9-valent vaccine DoD SARS-COV-2 (COVID-19) vaccine, mRNA, spike protein, LNP, preservative free, 100 mcg or 50 mcg dose 3 2021 [id number] 207 Aquapharm [employer] (MOD) complet ed SARS-COV- 2 (COVID-19 ) vaccine, mRNA, spike protein, LNP, preservat maritza free, 100 mcg or 50 mcg dose DoD Influenza, injectable, quadrivalent, preservative free 7 2020 [id number] 150 Mailpile (SKB) complet ed Influenza , injectabl e, quadrival ent, preservat maritza free DoD SARS-COV-2 (COVID-19) vaccine, mRNA, spike protein, LNP, preservative free, 100 mcg or 50 mcg dose 2 2020 [id number] 207 VesLabs. (MOD) complet ed SARS-COV- 2 (COVID-19 ) vaccine, mRNA, spike protein, LNP, preservat maritza free, 100 mcg or 50 mcg dose DoD SARS-COV-2 (COVID-19) vaccine, mRNA, spike protein, LNP, preservative free, 100 mcg or 50 mcg dose 1 2020 [id number] 207 Pro[employer]osis [employer] (MOD) complet ed SARS-COV- 2 (COVID-19 ) vaccine, mRNA, spike protein, LNP, preservat maritza free, 100 mcg or 50 mcg dose DoD Influenza, injectable, quadrivalent, preservative free 0 2019 [id number] 150 Seqirus (SEQ) complet ed Influenza , injectabl e, quadrival ent, preservat maritza free DoD typhoid Vi capsular polysaccharid e vaccine 1 2018 [id number] 101 Sanofi Pasteur ([facility]) complet ed typhoid Vi capsular polysacch aride vaccine DoD Human Papillomaviru s 9-valent vaccine 1 2018 [id number] 165 Merck (MSD) complet ed Human Papilloma virus 9-valent vaccine DoD Influenza, injectable, quadrivalent, preservative free 0 2018 [id number] 150 Seqirus (SEQ) complet ed Influenza , injectabl e, quadrival ent, preservat maritza free DoD Influenza, injectable, quadrivalent, preservative free 0 2017 [id number] 150 Seqirus (SEQ) comple t ed Influenza , injectabl e, quadrival ent, preservat maritza free DoD Singaporean Encephalitis vaccine for intramuscular administratio n 3 2017 [id number] 134 Valneva (ERICA) complet ed Singaporean Encephali tis vaccine for intramusc ular administr ation DoD influenza, injectable, quadrivalent, contains preservative 3 2016 [id number] 158 SmithKline (SKB) complet ed influenza , injectabl e, quadrival ent, contains preservat maritza DoD Singaporean Encephalitis vaccine for intramuscular administratio n 2 2016 [id number] 134 Valneva (ERICA) complet ed Singaporean Encephali tis vaccine for intramusc ular administr ation DoD hepatitis A and hepatitis B vaccine 3 2015 [id number] 104 [employer]Kline (SKB) complet ed hepatitis A and hepatitis B vaccine DoD Singaporean Encephalitis vaccine for intramuscular administratio n 1 2015 [id number] 134 [employer] (INT) complet ed Singaporean Encephali tis vaccine for intramusc ular administr ation DoD Influenza, seasonal, injectable, preservative free 0 2015 [id number] 140 Seqirus (SEQ) comple t ed Influenza , seasonal, injectabl e, preservat maritza free DoD measles, mumps and rubella virus vaccine 2 2015 [id number] 03 Merck (MSD) complet ed measles, mumps and rubella virus vaccine DoD hepatitis A and hepatitis B vaccine 1 2015 [id number] 104 SmithKline (SKB) complet ed hepatitis A and hepatitis B vaccine DoD measles, mumps and rubella virus vaccine 1 2015 [id number] 03 Merck (MSD) complet ed measles, mumps and rubella virus vaccine DoD hepatitis A and hepatitis B vaccine 1 2015 [id number] 104 SmithKline (SKB) complet ed hepatitis A and hepatitis B vaccine DoD poliovirus vaccine, inactivated 1 2015 [id number] 10 Sanofi Pasteur (PMC) complet ed polioviru s vaccine, inactivat ed DoD meningococcal polysaccharid e (groups A, C, Y and W-135) diphtheria toxoid conjugate vaccine (MCV4P) 1 2015 [id number] 114 Sanofi Pasteur (PMC) complet ed meningoco ccal polysacch aride (groups A, C, Y and W-135) diphtheri a toxoid conjugate vaccine (MCV4P) DoD tetanus toxoid, reduced diphtheria toxoid, and acellular pertu is vaccine, adsorbed 1 2015 [id number] 115 SmithKline (SKB) complet ed tetanus toxoid, reduced diphtheri a toxoid, and acellular pertussis vaccine, adsorbed DoD Adenovirus, type 4 and type 7, live, oral 1 2015 [id number] 143 [employer] (BRR) complet ed Adenoviru s, type 4 and type 7, live, oral DoD influenza, injectable, quadrivalent, contains preservative 1 2015 [id number] 158 SmithKline (SKB) complet ed influenza , injectabl e, quadrival ent, contains preservat maritza DoD mumps virus vaccine 0 2015 07 () Not Given mumps virus vaccine DoD varicella virus vaccine 0 2015 21 () Not Given varicella virus vaccine DoD Encounters Combined list of: 1) Encounters from Department of Veterans Affairs facilities going back up to thelast 18 months. 2) Encounters from the Department of Defense facilities going back up to 280 months. Location Location Details Encounter Type Encounter Number Reason For Visit Attending Provider ADM Date DC Date [place] [address]([facility], [facility]) OUTPATIENT [id number] pfNERY Conroy 06/29 Released w/o Limitations [facility] [place] [address]([facility] , [facility]) [place] [address]([facility]) OUTPATIENT [id number] Notes Entered by: LAURA WALKER 01 Jul 2015 1019 ------- ------- ------- ------- -- Strep Prophyl axis JACQUELINE WALKER 06/30 Released w/o Limitations [facility] [place] [address]([facility]) [place] [address](Hea ring Conservat ion, BMT) OUTPATIENT [id number] FLIP KWAN 07/02 Released w/o Limitations [facility] [place] [address](H earing Conserv ation, [place]) [place] [address](ATR 323 TRS,BMT) OUTPATIENT [id number] Notes Entered by: MARKY HASSAN 09 Jul 2015 1339 ------- ------- ------- ------- -- [facility] lower leg pain MIGUEL PETERSON 07/08 Released with Work/Duty Limitations [facility] [place] [address](A TR 323 TRS,BMT ) [place] [address](ATR 323 TRS,BMT) OUTPATIENT [id number] Notes Entered by: MARKY HASSAN DO A 10 Jul 2015 1020 ------- ------- ------- ------- -- TALHA SIMON PT 07/09 Released with Work/Duty Limitations [facility] [place] [address](A TR 323 TRS,BMT ) [place] [address](MAS Alpha) OUTPATIENT [id number] Notes Entered by: Casey WELCH 11 Aug 2015 1212 ------- ------- ------- ------- -- cold pack SUNDEEP WELCH 08/10 Released w/o Limitations [facility] [place] [address](M Alpha) [place]) OUTPATIENT [id number] PFB ASHU DEE 08/31 Released with Work/Duty Limitations [place] OUTPATIENT [id number] PFB ASHU DEE 09/30 Released w/o Limitations [place] OUTPATIENT [id number] POSSIBL E PLANTAR FASCITI TENNILLE HANNON 10/05 Released w/o Limitations [place] [place] Occupatio [facility]) OUTPATIENT [id number] [facility] EVAN LUDWIG 10/26 Released w/o Limitations [place] Occupat ional Health) [place] Hearing Conservat ion) OUTPATIENT [id number] audio +sts right WINTER WIN C 10/26 Released w/o Limitations [place] Hearing Conserv ation) [place] Hearing Conservat ion) OUTPATIENT [id number] audio WINTER WIN C 10/27 [place]ased [place]/o Limitations [place] Hearing Conserv ation) [place]) OUTPATIENT [id number] OSS/JAP AN BURKINAN, MART E 11/10 Released w/o Limitations [place] Readine [facility]) [place]) OUTPATIENT [id number] f/u Bilater al Foot Pain TENNILLE CASSIDY 11/11 Released with Work/Duty Limitations [place] [place] OUTPATIENT [id number] PFB ASHU DEE 11/30 [place]ased w/o Limitations [place] [place](Cheryl [facility] In-Out Robynin g) TELE CONSULT [id number] Notes Entered by: ASHU ACUÑA 03 Feb 2016 1205 ------- ------- ------- ------- -- Medical Inproce ssing ASHU ACUÑA 02/02 Other Not Elsewhere Classified [facility] ([facility] Medical In-Out Process ing) [place](K [facility] OUTPATIENT [id number] initial eric ho and plantar fasciti GEGE Storey 02/07 Released w/o Limitations [facility] (Ka [facility]) [facility](P [facility]ry [facility]) OUTPATIENT [id number] Plantar fascial fibroma PAT Guevara 03/23 Released w/o Limitations [facility] ([facility]) [facility]) OUTPATIENT [id number] neck and back px7/10 alexander t x3mo ELIZABETH SID T 03/24 Released w/o Limitations [facility] ([facility]) [facility]) TELE CONSULT [id number] Notes Entered by: DAYLIN CERVANTES 25 Mar 2016 1037 ------- ------- ------- ------- -- RAD results SANTINO MULLER 03/25 [facility] ([facility]) [facility]) OUTPATIENT [id number] stress managem ent/ref erral from JASON ROLON 03/28 Released w/o Limitations [facility] ([facility]) [facility]) OUTPATIENT [id number] RAD results f/u SID JOHNSON 03/30 Released w/o Limitations [facility] ([facility]) [facility]) TELE CONSULT [id number] Notes Entered by: GAGE MURCIA 05 Apr 2016 1323 ------- ------- ------- ------- -- PHAQ PRIORIT Y ITEM SANTINO MULLER 04/05 [facility] ( [facility]) [facility]( A [facility]) OUTPATIENT [id number] routine /IMR TOBIN FRAGA 04/07 Released w/o Limitations [facility] ( Optomet ry Clinic) [facility]) OUTPATIENT [id number] f/u JASON GUERRA 04/11 Released w/o Limitations [facility] ([facility]) [facility] Hearing Conservat ion) OUTPATIENT [id number] Notes Entered by: WOLFGANG FERNANDEZ 15 Apr 2016 1412 ------- ------- ------- ------- -- AUDIOGR AM RAGHAV ORTIZ 04/15 Released w/o Limitations [facility] ( [facility]) [facility]) OUTPATIENT [id number] radha Velazquez TYLER B 04/18 Released with Work/Duty Limitations [facility] ( Physica l Therapy Clinic) [facility]) TELE CONSULT [id number] Notes Entered by: BANDAR VEGA 18 Apr 2016 1401 ------- ------- ------- ------- -- NOEMIATO NIKITA [facility] FOR OHA RANDALL CRESPO 04/18 [facility] ([facility]) [facility]) OUTPATIENT [id number] respito ry agnieszkaio RANDALL Malcolm 04/19 Released w/o Limitations [facility] ([facility]) [facility]) OUTPATIENT [id number] Notes Entered by: DENISSE HERNANDEZ 05 May 2016 1300 ------- ------- ------- ------- -- MARKUS Gonzalez 05/05 Released w/o Limitations [facility] ([facility]) [facility]) OUTPATIENT [id number] THI NESS 05/11 Released w/o Limitations [facility] ( Physica l Therapy [facility]) [facility]) OUTPATIENT [id number] GARRY MILLER 05/12 Released w/o Limitations [facility] ([facility]) [facility]) OUTPATIENT [id number] THI NESS 05/16 Released w/o Limitations [facility] ( Physica l Therapy [facility]) [facility]) TELE CONSULT [id number] Notes Entered by: Chreyl GAO 20 May 2016 0732 ------- ------- ------- ------- -- vomit, cold sweats, has had little waterxl ess then 12 hours SANTINO MULLER 05/19 [facility] ([facility]) [facility]) OUTPATIENT [id number] throwin g up SANTINO MULLER 05/20 Released w/o Limitations [facility] ([facility]) [facility]) OUTPATIENT [id number] THI NESS DUZOAlfonso 05/22 Released w/o Limitations [facility] ( [facility] l [facility]) [facility]) OUTPATIENT [id number] Tidd resched ule/rebeca ulder px 08/13/ hand px 08/13 x almost 1 yr SANTINO MULLER B 05/25 Released w/o Limitations [facility] ([facility]) [facility]) OUTPATIENT [id number] THI NESSZOAlfonso 05/29 Released w/o Limitations [facility] ( Physica l Therapy [facility]) [facility]) OUTPATIENT [id number] Notes Entered by: GUALBERTO HUBER 30 May 2016 0833 ------- ------- ------- ------- -- [facility] CARINA ALEX 05/29 Released w/o Limitations [facility] ([facility]) [facility]) OUTPATIENT [id number] BILLY DON 06/01 Released w/o Limitations [facility] ( Physica l Therapy [facility]) [facility]) TELE CONSULT [id number] Notes Entered by: Alfonso SHANE 28 Jul 2016 1043 ------- ------- ------- ------- -- STD Ivis lopez (asympt omatic) KAYLIE EVANS 07/28 Referred for Appointment [facility]) OUTPATIENT [id number] Notes Entered by: DENISSE HERNANDEZ 28 Jul 2016 1334 ------- ------- ------- ------- -- LIZ Watson 07/28 Released w/o Limitations [facility] ([facility]) [facility]) TELE CONSULT [id number] SANTINO MULLER 08/05 [facility] ([facility]) [facility]) OUTPATIENT [id number] f/u back SID JOHNSON 08/08 Released with Work/Duty Limitations [facility] ([facility]) [facility]) OUTPATIENT [id number] ER f/u for Edema SID JOHSNON 09/12 Released w/o Limitations [facility] ([facility]) [facility]) TELE CONSULT [id number] Notes Entered by: Joe WILSON 03 Oct 2016 0909 ------- ------- ------- ------- -- rash on chest,r ed, bumpy(l ook like acne) x2days SANTINO MULLER 10/03 [facility] ([facility]) [facility]) TELE CONSULT [id number] Notes Entered by: NICOLAS HOOK 11 Oct 2016 0817 ------- ------- ------- ------- -- Early STI F/U JUD CURRY 10/10 [facility] ([facility]) [facility]) TELE CONSULT [id number] Notes Entered by: SID JOHNSON 26 Oct 2016 0847 ------- ------- ------- ------- -- F/u apt for MRI review REBEL GONZALEZ 10/25 Referred for Appointment [facility] ([facility]) [facility]) OUTPATIENT [id number] MRI review SID JOHNSON Stevo 11/04 Released with Work/Duty Limitations [facility] ([facility]) [facility]) OUTPATIENT [id number] Notes Entered by: Emma BURNETT TTE 10 Nov 2016 1328 ------- ------- ------- ------- -- KAMLESH Gu 11/10 Released w/o Limitations [facility] ([facility]) [facility] A Team) OUTPATIENT [id number] rash on back, red, raised, no improve ment over past 2wks DEAN GALLAGHER 12/19 Released w/o Limitations [facility] ([facility] A Team) [facility]) OUTPATIENT [id number] Ref to chiropr actBRADLY Razo 01/31 Released w/o Limitations [facility] ([facility]) [facility]) TELE CONSULT [id number] Notes Entered by: Joe WILSON 09 Mar 2017 1506 ------- ------- ------- ------- -- Profile JONASDianVERÓNICA ANIBALCARLBRY OLOLADE 03/09 Other Not Elsewhere Classified [facility] ([facility]) [facility]) TELE CONSULT [id number] Notes Entered by: Joe WILSON 23 Mar 2017 1315 ------- ------- ------- ------- -- SYMP- sore throat, headach es,body px,chil ls,warm VONBEHR, DARINEL FAGANY 03/23 Advice Assessment [facility] ([facility]) [facility]) OUTPATIENT [id number] Notes Entered by: TAMIKO WILSON 27 Mar 2017 1111 ------- ------- ------- ------- -- AUDIOGR AM TAMIKO WILSON 03/27 Released w/o Limitations [facility] ( [facility]) [facility]) TELE CONSULT [id number] Notes Entered by: TAMIKO WILSON 27 Mar 2017 1112 ------- ------- ------- ------- -- OHA LABS TAMIKO WILSON 03/27 Referred for Appointment [facility] ( Hearing [facility]) [facility]) TELE CONSULT [id number] Notes Entered by: JR ORTIZ 27 Mar 2017 1119 ------- ------- ------- ------- -- STI - Confide nce Check JUD CURRY 03/27 Other Not Elsewhere Classified [facility] ([facility]) [facility](K a [facility]) OUTPATIENT [id number] Notes Entered by: Emma BURNETT TTE 27 Mar 2017 1208 ------- ------- ------- ------- -- Sent by Public Health BRADLY FRENCH 03/27 Released w/o Limitations [facility] ([facility]) [facility]) OUTPATIENT [id number] Kevin velasco, right side BILLY DON 03/28 Released with Work/Duty Limitations [facility] ( Physica l Therapy [facility]) [facility]) OUTPATIENT [id number] Notes Entered by: Regina ORTEGA 11 Apr 2017 1558 ------- ------- ------- ------- -- Audiogr am BHAVNA ORTEGA 04/11 Released w/o Limitations [facility] ( [facility]critical access [facility]) [facility]( [facility]) OUTPATIENT [id number] f/u hearing non flyer RICKY GEE 04/14 Released w/o Limitations [facility] ( Aerospa ce Medicin e [facility]) [facility]) OUTPATIENT [id number] JOCELINE CERVANTES 05/14 Released w/o Limitations [facility] ( Physica l Therapy [facility]) [facility] Chiroprac tic Clinic) OUTPATIENT [id number] Lumbago with sciatic a, right side RIAN SIMMS 05/16 Released w/o Limitations [facility] ([facility] Chiropr actic Clinic) [facility]( udiology Clinic) OUTPATIENT [id number] Unspeci fied hearing loss, left ear JOCELINE AKERS 05/17 Released w/o Limitations [facility] (Audiol ogy Clinic) [facility]) OUTPATIENT [id number] JOCELINE CERVANTES 05/21 Released w/o Limitations [facility] ( Physica l Therapy [facility]) [facility] BG) OUTPATIENT [id number] Notes Entered by: Joe WILSON 22 May 2017 1138 ------- ------- ------- ------- -- *cough, loss appetit e,sweat s,chill s*[phone] or [phone]* BRADLY FRENCH 05/22 Released w/o Limitations [facility] ([facility] BG) [facility]) OUTPATIENT [id number] JOCELINE CERVANTES 05/28 Released w/o Limitations [facility] ( Physica l Therapy [facility]) [facility]) OUTPATIENT [id number] OHA SAHIL BROTHERS 05/31 Released w/o Limitations [facility] ([facility]) [facility] OUTPATIENT [id number] RIAN SIMMS 06/01 Released w/o Limitations [facility]) OUTPATIENT [id number] OHA f/u RANDALL CRESPO 06/05 Released w/o Limitations [facility] ([facility]) [facility] OUTPATIENT [id number] RIAN SIMMS 06/13 Released w/o Limitations [facility] ([facility]) OUTPATIENT [id number] Notes Entered by: LUI SCHWARZ 16 Jun 2017 1433 ------- ------- ------- ------- -- Annual A-P JIN SCHWARZ 06/16 Released w/o Limitations [facility] ([facility]) [facility]) OUTPATIENT [id number] Notes Entered by: GUALBERTO HUBER 19 Jun 2017 0845 ------- ------- ------- ------- -- TRI SERVICE PHA / *LTB BRADLY FRENCH 06/18 Released w/o Limitations [facility] ([facility]) [facility] OUTPATIENT [id number] RIAN SIMMS 07/12 Released w/o Limitations [facility]) OUTPATIENT [id number] back pain and foot pain BRADLY FRENCH 08/02 Released w/o Limitations [facility] ([facility]) [facility] OUTPATIENT [id number] RIAN SIMMS 08/15 Released w/o Limitations [facility] ([facility]) [facility] Chiroprac tic Clinic) OUTPATIENT [id number] RIAN SIMMS 08/31 Released w/o Limitations [facility] ([facility] Chiropr actic Clinic) [facility] A Team) OUTPATIENT [id number] Notes Entered by: Emma BURNETT 10 Jan 2018 0725 ------- ------- ------- ------- -- JUNIOR London 01/09 Released with Work/Duty Limitations [facility] ([facility] A Team) [facility] D Team) TELE CONSULT [id number] Notes Entered by: RA URBAN PERKINS 10 Jan 2018 0816 ------- ------- ------- ------- -- Tanvire GERARDO Andrews 01/09 Other Not Elsewhere Classified [facility] ([facility] D Team) [facility]) OUTPATIENT [id number] injured my back (again) was told to make an appoint ment by kush shearer WALDEN KEREN Casey 02/02 Released with Work/Duty Limitations [facility] ([facility]) [facility]) TELE CONSULT [id number] Notes Entered by: BRIE MIN 23 Feb 2018 1355 ------- ------- ------- ------- -- PRO:Ext landy/ [phone]/ JOCELINE VELASQUEZ 02/23 Other Not Elsewhere Classified [facility] ([facility]) [facility](P hysical Therapy Clinic) OUTPATIENT [id number] Low back pain ERICK BRENNAN 03/08 Released w/o Limitations [facility] (Phys[facility] al Therapy [facility](P hysical Therapy Clinic) OUTPATIENT [id number] 1 of 4 CATALINA MCDERMOTT 03/16 Released with Work/Duty Limitations [facility] Chiroprac tic Clinic) OUTPATIENT [id number] RIAN SIMMS Lb 03/19 Released w/o Limitations [facility] ([facility] Chiropr actic [facility]) [facility]) TELE CONSULT [id number] Notes Entered by: ARELY SAUNDERS 28 Mar 2018 1224 ------- ------- ------- ------- -- pro;upd ate,/48 [phone] [id number] JOCELINE ESPINO 03/28 Other Not Elsewhere Classified [facility] ([facility]) [facility]( h[facility] Therapy [facility]) OUTPATIENT [id number] 2/ IMELDA CISNEROS 03/30 Released with Work/Duty Limitations [facility] ([facility]ic al Therapy [facility]) [facility]( a [facility]) OUTPATIENT [id number] skin issue, acne, initial appt BRADLY FRENCH 04/02 Released w/o Limitations [facility] ([facility]) [facility]) TELE CONSULT [id number] Notes Entered by: JARRETT CALIX 06 Apr 2018 1526 ------- ------- ------- ------- -- OH Labs DREAD CALIX 04/06 Referred for Appointment [facility] ([facility]) [facility](P hysical Therapy Clinic) OUTPATIENT [id number] 4/ ASUNCION POST 04/11 Released w/o Limitations [facility] (Physic al Therapy Clinic) [facility] ion) OUTPATIENT [id number] Notes Entered by: JARRETT CALIX 13 Apr 2018 0822 ------- ------- ------- ------- -- Audiogr am DREAD CALIX 04/12 Released w/o Limitations [facility] ( [facility]) [facility](P [facility]) OUTPATIENT [id number] 06/07 CATALINA MCDERMOTT 04/20 Released with Work/Duty Limitations [facility] ([facility]) [facility](P [facility]) OUTPATIENT [id number] LBP F/u ERICK BRENNAN 05/01 Released w/o Limitations [facility] ([facility]) [facility]) OUTPATIENT [id number] 03/09 MATTHEW LLAMAS 05/09 Released w/o Limitations [facility] ( [facility]) [facility]) OUTPATIENT [id number] SAHIL BLANCO 05/10 Released w/o Limitations [facility] ([facility]) [facility] Chiroprac tic Clinic) OUTPATIENT [id number] RIAN SIMMS 06/01 [place]ased w/o Limitations [facility] ([facility] Chiropr actic Clinic) [facility]( a [facility]) OUTPATIENT [id number] Notes Entered by: PETR THAPA 12 Jun 2018 1426 ------- ------- ------- ------- -- TRI SERVICE KAUSHAL/ASHU PRICE 06/12 [facility]ased w/o Limitations [facility]) [facility]) OUTPATIENT [id number] ERICK BRENNAN 06/27 Released w/o Limitations [facility] ([facility] ) [facility]) OUTPATIENT [id number] MATTHEW Raya 06/27 Released w/o Limitations [facility] ([facility]) [facility]) OUTPATIENT [id number] MATTHEW Raya 07/08 Released w/o Limitations [facility] ([facility]) [facility]) OUTPATIENT [id number] f/u LBP ERICK BRENNAN 07/11 Released w/o Limitations [facility] ( Physica l Therapy Clinic) [facility] D Team) OUTPATIENT [id number] Bilat foot pain x2 weeks JOSE CARTY 08/21 Released w/o Limitations [facility] ([facility] D Team) [facility](P odiatry Clinic) OUTPATIENT [id number] Plantar fascial fibroma tosis GURJIT HARVEY 09/19 Released w/o Limitations [facility] (Podiat ry Clinic) [facility]) OUTPATIENT [id number] concent ration CLAYTON Steele 10/08 Released w/o Limitations [facility] ([facility]) [facility](P odiatry Clinic) OUTPATIENT [id number] F/U L toenail removal GURJIT HARVEY 10/08 Released w/o Limitations [facility] (Podiat ry Clinic) [facility] A Team) OUTPATIENT [id number] Medicat ion inquire s per VIRGIL Romano 10/22 Released w/o Limitations [facility] ([facility] A Team) [facility]) TELE CONSULT [id number] Notes Entered by: NAHEED ADAME 08 Nov 2018 1313 ------- ------- ------- ------- -- MED CONSULT ATION /O CANDELARIO SANTIAGO 11/08 Released to Self Care [facility] ([facility]) [facility] A Team) OUTPATIENT [id number] MEDICAT ION EVAN GARRISON 11/13 Released w/o Limitations [facility] ([facility] A Team) [facility] BG[facility]) OUTPATIENT [id number] injured lower back LINDSAY CRESPO 01/15 Released w/o Limitations [facility] D Team) OUTPATIENT [id number] Notes Entered by: CAROLINA OSWALD 23 Jan 2019 0702 ------- ------- ------- ------- -- YEYO HUITRON 01/22 Released with Work/Duty Limitations [facility] ([facility] D Team) [facility]) OUTPATIENT [id number] Notes Entered by: ANDREAS RASCON 23 Jan 2019 0812 ------- ------- ------- ------- -- Travel Med BERENICE Barnett 01/22 Released w/o Limitations [facility] ([facility]) [facility]) OUTPATIENT [id number] Notes Entered by: ANDREAS RASCON 30 Jan 2019 1317 ------- ------- ------- ------- -- Travel Med KAYLIE Young 01/30 Released w/o Limitations [facility] ([facility]) [facility]) OUTPATIENT [id number] Pain in [place] areas RENNY DIANA 02/12 Released w/o Limitations [facility] ([facility]) [facility] D Team) TELE CONSULT [id number] Notes Entered by: MARK CURIEL 08 Mar 2019 0938 ------- ------- ------- ------- -- SYM/ MONKEY BITE AND COLD SYMPTOM S/ LIBORIO SIMMONS 03/08 Referred- Emergency Department [facility] ([facility] D Team) [facility]( a Hearing Conserv[facility] ion) OUTPATIENT [id number] Audiogr am 465B PASTOR AGUILAR 04/25 Released w/o Limitations [facility] ( [facility]ion) [facility] OUTPATIENT [id number] Audiogr am follow up ED LOPEZ 05/19 Released w/o Limitations [facility] ( Hearing Conserv ation) [facility] D Team) TELE CONSULT [id number] Notes Entered by: ARTHUR HSU 31 May 2019 1603 ------- ------- ------- ------- -- SYM: FEVER, BODY ACHES/( [phone] 5/DARINEL LEROY 05/30 Advice Assessment [facility] ([facility] D Team) [facility] Med [facility] Team 1) OUTPATIENT [id number] fever x5 day runny nose KELECHI PRADOON 06/06 Released w/o Limitations [facility] ([facility] Med [facility] Team 1) [facility]( hysical Therapy Clinic) TELE CONSULT [id number] Notes Entered by: YAZAN WALLACE 08 Jun 2019 0931 ------- ------- ------- ------- -- PUI check in RIKY WALLACE 06/07 [facility] (Physic al Therapy Clinic) [facility]) OUTPATIENT [id number] [facility] ULICES CHAO 06/23 Released w/o Limitations [facility] ([facility]) [facility] D Team) TELE CONSULT [id number] Notes Entered by: MARK CURIEL 25 Jul 2019 0918 ------- ------- ------- ------- -- f/u for pneumon ia/ /SHYANNE Galicia 07/24 Other Not Elsewhere Classified [facility] ([facility] D Team) [facility]) OUTPATIENT [id number] Notes Entered by: KWAME GUILLEN 09 Aug 2019 0919 ------- ------- ------- ------- -- TRI SERVICE PHA/RENNY HEARD 08/08 Released w/o Limitations [facility] ([facility]) [facility](K a [facility] D Team) OUTPATIENT [id number] ear pain, congest ion, and feveris h RENNY DIANA 08/18 Released w/o Limitations [facility] ([facility] D Team) [facility]( a [facility] D Team) OUTPATIENT [id number] PT NEED WAVIER FOR PCS, DISCUSS W/PCM RENNY DIANA 08/25 Released w/o Limitations [facility] ([facility] D Team) [facility](O ps[facility]ge2 COVID19 Hotline) TELE CONSULT [id number] Notes Entered by: CRISTOFER CASSIDY 24 Oct 2019 0714 ------- ------- ------- ------- -- COVID CARE LINE KEREN CASSIDY 10/22 Referred for Appointment [facility] ([employer] COVID19 Hotline ) [facility]( a [facility] D Team) OUTPATIENT [id number] fatigue , nausea, diarrhe a, nasal dischar ge x2 days LINDSAY CRESPO W 10/23 Sick at Home/Quarter s [facility] ([facility] D Team) [facility](K a [facility] A Team) OUTPATIENT [id number] cough x5 days with chills and congest ion VINCE CORTES 10/27 Sick at Home/Quarter s [facility] ([facility] A Team) [facility]( a [facility] D Team) TELE CONSULT [id number] Notes Entered by: CHERYL PATEL 30 Oct 2019 1330 ------- ------- ------- ------- -- SYM: QUATERS ISSUE/R ESULTS/ 634 0900/AV LIBORIO HARRISON 10/29 Other Not Elsewhere Classified [facility] ([facility] D Team) [facility] D Team) OUTPATIENT [id number] Notes Entered by: Dheeraj CASTILLO 18 Dec 2019 0715 ------- ------- ------- ------- -- [facility] KOREY REYESKAL IGNACIO Cristy LEONARD 12/16 Released w/o Limitations [facility] ([facility] D Team) [facility]) OUTPATIENT [id number] Notes Entered by: JEREMIAH BOBO 24 Dec 2019 1216 ------- ------- ------- ------- -- OS Melba ADLER, UYEN Simeon 12/23 Released w/o Limitations [facility] ([facility]) [facility] Active Duty Team A) TELE CONSULT [id number] Notes Entered by: DEREK BANEGAS 15 May 2020 1223 ------- ------- ------- ------- -- STI testing CHRISTINE COHN [facility] 05/15 [facility] Active Duty Team A) [facility] Active Duty Team A) OUTPATIENT [id number] Notes Entered by: Emma COHN 15 May 2020 1243 ------- ------- ------- ------- -- Walk is possibl e STI treatme nt RITA ANDREWS 05/15 Released w/o Limitations [facility] Active Duty Team A) [facility] Active Duty Team A) OUTPATIENT [id number] neck px // [phone] RITA ANDREWS 05/18 Released w/o Limitations [facility] Active Duty Team A) [facility] Active Duty Team A) TELE CONSULT [id number] Notes Entered by: MICHELLE RAY I 20 May 2020 1042 ------- ------- ------- ------- -- initial dry ANGELIQUE Elkins 05/20 [facility] Active Duty Team A) [facility] FP Behaviora l Hlt Opt) OUTPATIENT [id number] Anxiety /Depres FRED Antunez 05/27 Released w/o Limitations [facility] FP Behavio ral Hlt Opt) [facility] [facility] Wom Active Duty Team A) OUTPATIENT [id number] !1300 TDN RITA ANDREWS 05/30 Released w/o Limitations [facility] Wom Active Duty Team A) [facility] Hearing Conservat ion) OUTPATIENT [id number] ohe hearing MARTIN-LINDSAY CO, JAYNE 06/14 Released w/o Limitations [facility] Hearing Conserv ation) [facility] Immunizat ion) OUTPATIENT [id number] COVID 19 VAX MODERNA 1 JESI GOOD 06/30 Released w/o Limitations [facility] Immuniz ation) [facility] Nutrition Care) OUTPATIENT [id number] 3 Cliff [email or web address] Ortega 07/15 Released w/o Limitations [facility] Nutriti on Care) [facility] Wellness Center) OUTPATIENT [id number] BOD/MET LINDSAY RUVALCABA 07/23 Released w/o Limitations [facility]) [facility] Wellness Center) OUTPATIENT [id number] JAM ASKEW 07/24 Released w/o Limitations [facility]) [facility] Wo Active Duty Team A) TELE CONSULT [id number] Notes Entered by: RUPA CALDWELL 24 Jul 2020 1018 ------- ------- ------- ------- -- Referra lb for sleep study REBEL COX 07/24 [facility] Wo Active Duty Team A) [facility] Immunizat ion) OUTPATIENT [id number] COVID-1 9 VACC MODERNA DOSE 2 ENRIQUE RAMÍREZ 07/28 Released w/o Limitations [facility] Immuniz ation) [facility] Wellness Center) OUTPATIENT [id number] [facility] JAM TITUS 08/26 Released w/o Limitations [facility]) [facility] Wo Active Duty Team A) TELE CONSULT [id number] Notes Entered by: DEREK BANEGAS 31 Aug 2020 0741 ------- ------- ------- ------- -- radiolo gy request - pls see today REBEL COX 08/31 [facility] Wo Active Duty Team A) [facility] OP Medicine Clinic) OUTPATIENT [id number] Notes Entered by: CLIFTON BHAKTA 31 Aug 2020 0908 ------- ------- ------- ------- -- CLIFTON Harvey 08/31 Released w/o Limitations [facility] OP Medicin e Clinic) [facility] Wo Active Duty Team A) OUTPATIENT [id number] VIRTUAL DANYA HICKS 08/31 Released w/o Limitations [facility] Wo Active Duty Team A) [facility] Wo Active Duty Team A) TELE CONSULT [id number] Notes Entered by: MICHELLE RAY I 11 Sep 2020 1040 ------- ------- ------- ------- -- ER f/u for partial ly torn hamstri ngs REBEL COX 09/11 [facility] Wo Active Duty Team A) [facility] Sleep Clinic) OUTPATIENT [id number] SPEC [id number] YISSEL BALLESTEROS 09/11 Released w/o Limitations [facility] Sleep Clinic) [facility] Wo Active Duty Team A) OUTPATIENT [id number] Right hamstri ng LARRY Reza 09/11 Released with Work/Duty Limitations [facility] Wo Active Duty Team A) [facility] Wo Active Duty Team A) TELE CONSULT [id number] Notes Entered by: MICHELLE RAY I 20 Nov 2020 0844 ------- ------- ------- ------- -- Adderal l RX refill request FRED FLORES 11/20 [facility] Wo Active Duty Team A) [facility] Sleep Study Lab) OUTPATIENT [id number] HST PICKUP JIN DALY 12/09 Released w/o Limitations [facility] Sleep Study Lab) [facility] Sleep Clinic) OUTPATIENT [id number] HST DROPOFF /RESULT S F2F YISSEL BALLESTEROS 12/10 Released w/o Limitations [facility](L Sleep Clinic) [facility] Emergency Room) OUTPATIENT [id number] DONTA FRITZ 12/22 Released w/o Limitations [facility] Emergen cy Room) [facility] Wo Active Duty Team A) TELE CONSULT [id number] Notes Entered by: DEREK BANEGAS 29 Dec 2020 1340 ------- ------- ------- ------- -- profile request wally AKERS DANYA M 12/29 [facility] Wo Active Duty Team A) [facility] Wo Active Duty Team A) TELE CONSULT [id number] Notes Entered by: ZOLTAN OROZCO 30 Dec 2020 1230 ------- ------- ------- ------- -- Shaving waFRED Chou 12/30 Other Not Elsewhere Classified [facility] Wo Active Duty Team A) [facility] Emergency Room) OUTPATIENT [id number] NAOMY HOUSE 02/07 Released w/o Limitations [facility] Emergen cy Room) [facility](Opsur ge Multi-Spe cialty Cl) TELE CONSULT [id number] Notes Entered by: TAZ GODOY 08 Feb 2021 1130 ------- ------- ------- ------- -- COVID Test Walk-In TAZ GODOY 02/08 Other Not Elsewhere Classified [facility](Ops urge Multi-S pecialt y Cl) [facility] Wo Active Duty Team A) TELE CONSULT [id number] Notes Entered by: MICHELLE RAY I 10 Feb 2021 1512 ------- ------- ------- ------- -- Quarter s verific ation needed SANDIP MOYA 02/10 Other Not Elsewhere Classified [facility] Wo Active Duty Team A) [facility] Base Op Med Clinic) OUTPATIENT [id number] OHE, 177A Acft, CBN [id number] HARSHILJULIANO WELCH O 03/09 Released w/o Limitations [facility] Base Op Med Clinic) [facility] Hearing Conservat ion Cln) OUTPATIENT [id number] 177A AUDIOGR AM ANANDA COREYJOSEFA Carter 04/02 Released w/o Limitations [facility] Hearing Conserv ation Cln) [facility] Active Duty Team A) TELE CONSULT [id number] Notes Entered by: ZOLTAN OROZCO 20 May 2021 0903 ------- ------- ------- ------- -- SICK sx/Rx needed PAPITO VASQUEZ 05/20 Advice Assessment [facility] Active Duty Team A) [facility] Active Duty Team A) TELE CONSULT [id number] Notes Entered by: MAGY BAH 31 May 2021 0803 ------- ------- ------- ------- -- on going SICK sx / Cov + PAPITO VASQUEZ 05/31 Sick at Home/Quarter s [facility] Active Duty Team A) [facility] Family Med Non-AD Team E) TELE CONSULT [id number] Notes Entered by: Dheeraj KANG 09 Jun 2021 1145 ------- ------- ------- ------- -- STI Check PAPITO VASQUEZ 06/09 Referred for Appointment [facility] Family Med Non-AD Team E) [facility] Active Duty Team A) OUTPATIENT [id number] STI with abd pain and flank pain JIN ISBELL 06/09 Released w/o Limitations [facility] Active Duty Team A) [facility] Active Duty Team D) TELE CONSULT [id number] Notes Entered by: AMISHA ISBELL 23 Jun 2021 1341 ------- ------- ------- ------- -- Lab results JIN ISBELL 06/23 [facility] Gastroent erology) OUTPATIENT [id number] Elevati on of levels of liver transam inase [place]/ [id number] GEGE AVILA 07/12 Released w/o Limitations [facility] Gastroe nterolo gy) [facility] Gastroent erology) TELE CONSULT [id number] Notes Entered by: ABUNDIO WADE TRACY Carter 22 Jul 2021 1732 ------- ------- ------- ------- -- labs GEGE AVILA 07/22 [facility] Gastroe nterolo gy) [facility] Active Duty Team A) TELE CONSULT [id number] Notes Entered by: JOCELINE HARP 03 Aug 2021 1331 ------- ------- ------- ------- -- Deploym JIN Galeana 08/03 [facility] Active Duty Team A) [facility] Op Med Clinic) OUTPATIENT [id number] MHA PHA + [phone] [id number] LYDIA CHAVEZ 08/03 Released w/o Limitations [facility] Base Op Med Clinic) [facility] Cold & Allergy Clinic) OUTPATIENT [id number] Notes Entered by: Cheryl HOLLEY 10 Aug 2021 1017 ------- ------- ------- ------- -- IDNY RADHA MISHRA 08/10 Released w/o Limitations [facility] Cold & Allergy Clinic) [facility] Gastroent erology) TELE CONSULT [id number] Notes Entered by: SHEREE العراقي 27 Aug 2021 1509 ------- ------- ------- ------- -- labs GEGE AVILA 08/27 [facility](L Gastroe nterolo gy) [facility] Cold & Allergy Clinic) OUTPATIENT [id number] [facility]/15 [facility]ick at Home/Quarter s [facility]) [facility] Wo Active Duty Team A) TELE CONSULT [id number] Notes Entered by: Shivani KANG 20 Sep 2021 0713 ------- ------- ------- ------- -- Adverse Reactio n to Antibio REBEL Leonard 09/20 [facility] Wo Active Duty Team A[facility] Cold & Allergy Clinic) OUTPATIENT [id number] [facility] DRAKE DOWNING 09/20 Sick at Home/Quarter s [facility] Cold [facility]) [facility] Wo Active Duty Team A) TELE CONSULT [id number] Notes Entered by: MAGY BAH 28 Sep 2021 1153 ------- ------- ------- ------- -- PAPITO Hinkle 09/28 Other Not Elsewhere Classified [facility] Wo Active Duty Team A) [facility] Chiroprac tic [facility]) OUTPATIENT [id number] Low back pain, unspeci fied JARRET LERNER 10/04 Released w/o Limitations [facility] Chirowy actic [facility]) [facility] Wo Active Duty Team A) TELE CONSULT [id number] Notes Entered by: HENRRY RICO 06 Oct 2021 1534 ------- ------- ------- ------- -- Working Waiver Request ANUM RICO 10/06 Other Not Elsewhere Classified [facility] Wo Active Duty Team A) [facility] Emergency Room) OUTPATIENT [id number] GANCERES, TAMIKO 10/08 [facility]ased w/o Limitations [facility] Emergen cy Room) [facility] OUT[facility] [id number] Low R back JARRET LERNER 10/11 [facility]ased w/o Limitations [facility] Chirowy actic [facility]) [facility] Wo Active Duty Team A) TELE CONSULT [id number] Notes Entered by: Shivani KANG 15 Oct 2021 1236 ------- ------- ------- ------- -- KELLI Cameron 10/15 [facility] for Appointment [facility] Wo Active Duty Team A) [facility] OUTPATIENT [id number] Low R back JARRET LERNER 10/18 Released w/o Limitations [facility] Chiropr actic [facility]) [facility] Wo Active Duty Team A) OUTPATIENT [id number] ER f/u w/ back pain, still in pain JIN ISBELL 10/18 Released w/o Limitations [facility] Wo Active Duty Team A) [facility] Active Duty Team D) TELE CONSULT [id number] Notes Entered by: AMISHA ISBELL 20 Oct 2021 0821 ------- ------- ------- ------- -- Low back FRED FLORES 10/20 Advice Assessment [facility] Active Duty Team D) [facility] Chiroprac tic Clinic) OUTPATIENT [id number] Low R back JARRET LERNER Huang 11/11 Released w/o Limitations [facility] Chiropr actic Clinic) [facility] Chiroprac tic Clinic) OUTPATIENT [id number] Low R back JARRET LERNER Huang 11/25 Released w/o Limitations [facility] Chiropr actic Clinic) [facility] Chiroprac tic Clinic) OUTPATIENT [id number] Low R back JARRET LERNER Huang 12/02 Released w/o Limitations [facility] Chiropr actic Clinic) [facility] Active Duty Team A) TELE CONSULT [id number] Notes Entered by: HENRRY RICO 02 Dec 2021 1701 ------- ------- ------- ------- -- Tanvire PAPITO Rahman 12/02 Other Not Elsewhere Classified [facility] Active Duty Team A) [facility] Active Duty Team A) TELE CONSULT [id number] Notes Entered by: Casey RODRIGUEZ 14 Dec 2021 0915 ------- ------- ------- ------- -- Waiver extensi on & modific atKELLI Ram 12/14 Other Not Elsewhere Classified [facility] Active Duty Team A) [facility] Chiroprac tic [facility]) OUTPATIENT [id number] Low R back JARRET LERNER 12/20 Released w/o Limitations [facility] Chirowy actic [facility]) [facility] Wo Active Duty Team A) TELE CONSULT [id number] Notes Entered by: Casey RODRIGUEZ 20 Dec 2021 0924 ------- ------- ------- ------- -- JOCE mobilit y waiver confirm ation needed PAPITO VASQUEZ 12/20 Advice Assessment [facility] Wo Active Duty Team A) [facility] Wo Active Duty Team A) TELE CONSULT [id number] Notes Entered by: Shivani KANG 04 Jan 2022 0925 ------- ------- ------- ------- -- BERENICE Smalls 01/04 Other Not Elsewhere Classified [facility] Wo Active Duty Team A) [facility] Physical Therapy) OUTPATIENT [id number] Low back pain, unspeci quyened ARMAAN ORTEGA 01/11 Released w/o Limitations [facility] Physica l Therapy ) [facility] Physical Therapy) OUTPATIENT [id number] back pain ANGE ELLIS 01/19 Released w/o Limitations [facility] Physica l Therapy ) [facility] Wo Active Duty Team D) TELE CONSULT [id number] JIN ISBELL 01/19 [facility] Wo Active Duty Team D) [facility] Chiroprac tic [facility]) OUTPATIENT [id number] low back JARRET LERNER 01/25 Released w/o Limitations [facility] Chirowy [facility]) [facility] Wo Active Duty Team A) TELE CONSULT [id number] Notes Entered by: Casey RODRIGUEZ 31 Jan 2022 1353 ------- ------- ------- ------- -- STD check LIZ COFFEY Lb 01/31 [facility] Wo Active Duty Team A) [facility] Pain Managemen t) OUTPATIENT [id number] Other interve rtebral disc degener ation, lumbar region CHERNYAK, GRIGORY VLADIMIROV ICH 02/01 Released w/o Limitations [facility] Man[facility]) [facility] Physical Therapy) OUTPATIENT [id number] back pain ELISE CANADA 02/02 Released w/o Limitations [facility] Physica l Therapy ) [facility]agemen t) OUTPATIENT [id number] RIGHT L4-L5 TFESI CHERMALATHIAK, GRIGORY VLADIMIROV ICH 02/02 Released w/o Limitations [facility]) [facility] Wo Active Duty Team A) TELE CONSULT [id number] Notes Entered by: MAGY BAH 07 Feb 2022 1034 ------- ------- ------- ------- -- Talk to PCM about 365 ANUM Espinosa P 02/07 Other Not Elsewhere Classified [facility] Wo Active Duty Team A) [facility] Physical Therapy) OUTPATIENT [id number] back ELLISANGE JOY T 02/08 Released w/o Limitations [facility] Physica l Therapy ) [facility] Physical Therapy) OUTPATIENT [id number] back pain ARMAAN ORTEGA 02/09 Released w/o Limitations [facility] Physica l Therapy ) [facility] Dermat[facility]) OUTPATIENT [id number] Cosmeti c eval acne scarrin g. 0160 [phone] RUCHI HOLLEY 02/09 Released w/o Limitations [facility] Dermato logy) [facility] Physical Therapy) OUTPATIENT [id number] back pain JACLYN MARTIN A 02/11 Released w/o Limitations [facility] Physica l Therapy ) [facility] Dermat[facility]) TELE CONSULT [id number] Notes Entered by: Casey HOLLEY 11 Feb 2022 1314 ------- ------- ------- ------- -- biopsy result RADHA GAYTAN 02/11 [facility] Dermato logy) [facility] Clinic) OUTPATIENT [id number] FOUNDAT IONS BERNARDA CHOWDHURY A 02/16 Released w/o Limitations [facility] Clinic) [facility] Physical Therapy) OUTPATIENT [id number] back pain JACLYN MARTIN A 02/16 Released w/o Limitations [facility](N Physica l Therapy ) [facility] Physical Therapy) OUTPATIENT [id number] low back ANGE ELLIS 03/02 Released w/o Limitations [facility](N Physica l Therapy ) [facility] Dermatolo gy) OUTPATIENT [id number] Laser resurfa cing paid. [phone] RUCHI HOLLEY 03/03 Released w/o Limitations [facility] Dermato logy) [facility] Cold & Allergy Clinic) OUTPATIENT [id number] Notes Entered by: Cheryl NUNO 08 Mar 2022 0820 ------- ------- ------- ------- -- CCAC EVAL HOUSE, ZAKIA L 03/08 Released w/o Limitations [facility]) [facility] Physical Therapy) OUTPATIENT [id number] back pain ARMAAN ORTEGA 03/09 Released w/o Limitations [facility] Physica l Therapy ) [facility] Physical Therapy) OUTPATIENT [id number] back and neck ELLIS ANGE [place] 03/17 Released w/o Limitations [facility] Physica l Therapy ) [facility] Physical Therapy) OUTPATIENT [id number] back and neck ELLIS, ANGE [place] 03/24 Released w/o Limitations [facility] Physica l Therapy ) [facility] Physical Therapy) OUTPATIENT [id number] LBP ELISE CANADA 03/28 Released w/o Limitations [facility] Physica l Therapy ) [facility] Hearing Conservat ion Cln) OUTPATIENT [id number] 4 Audiogr am, 177A ADIA ROBERTS 04/04 Released w/o Limitations [facility] Hearing Conserv ation Cln) [facility] Physical Therapy) OUTPATIENT [id number] Back ARMAAN ORTEGA 04/05 Released w/o Limitations [facility] Physica l Therapy ) [facility] Base Op Med Clinic) OUTPATIENT [id number] 3 OHE, 226B, CBN [id number] EGBUJI, ADA O 04/08 Released w/o Limitations [facility] Base Op Med Clinic) [facility] 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 Procedure Procedure Type Code Date Perfomer Comments Sour e Physical Therapy: ___ Se ion Segments, 15 Minutes Each Physical Therapy: ___ Session Segments, 15 Minutes Each 10199 05/22 THI NESS [facility] Non-Physician Phone Call To Patient/Provider Brief (5-10min) Non-Physician Phone Call To Patient/Provider Brief (5-10min) 88726 05/20 KAYLIE EVANS [facility] Modalities Heat Hot Packs Modalities Heat Hot Packs 68137 05/17 THI NESS [facility] Physical Therapy: ___ Se ion Segments, 15 Minutes Each Physical Therapy: ___ Session Segments, 15 Minutes Each 19208 05/17 THI NESS [facility] Modalities Heat Hot Packs Modalities Heat Hot Packs 44473 05/12 THI NESSAlfonso [facility] Physical Therapy: ___ Se ion Segments, 15 Minutes Each Physical Therapy: ___ Session Segments, 15 Minutes Each 63719 05/12 THI NESS [facility] Phys Therapy Education Self Care Training - Per 15 Minutes Phys Therapy Education Self Care Training - Per 15 Minutes 38745 04/18 BILLY DON [facility] A isted Exercises For ROM Assisted Exercises For ROM 60042 04/18 BILLY DON Physical Therapy Service Evaluation Physical Therapy Service Evaluation 16611 04/18 BILLY DON [facility] Patient education, not otherwise cla ified, non-physician provider, group, per se ion 04/17 MADHAVI ORTIZ [facility] Threshold Audiogram (Pure Tone) Automated Threshold Audiogram (Pure Tone) Automated [id number] 04/17 MADHAVI ORTIZ [facility] Non-Physician Phone Call To Pt/Provider Intermed (11-20 min) Non-Physician Phone Call To Pt/Provider Intermed (11-20 min) 20998 04/14 KAYLIE EVANS Health And Behavior Intervention, Each Additional 15 Minutes Individual Health And Behavior Intervention, Each Additional 15 Minutes Individual 40380 04/11 JASON GUERRA [facility] Ophthalmological New Patient Start Comprehensive Care Ophthalmological New Patient Start Comprehensive Care 65989 04/07 TOBIN FRAGA [facility] Determination Of Refractive State Determination Of Refractive State 41148 04/07 TOBIN FRAGA [facility] Health And Behav A e mt Each 15 Min Initial A e ment Health And Behav Assessmt Each 15 Min Initial Assessment 35445 04/05 JASON GUERRA [facility] Non-Physician Phone Call To Pt/Provider Intermed (11-20 min) Non-Physician Phone Call To Pt/Provider Intermed (11-20 min) 41423 03/30 KAYLIE EVANS Audiogram (Screening) Audiogram (Screening) 67289 10/28 WINTER WIN [facility] Physical Therapy: ___ Se ion Segments, 15 Minutes Each Physical Therapy: ___ Session Segments, 15 Minutes Each 64195 07/13 MIGUEL PETERSON [facility] Modalities Cryotherapy Cold Packs Modalities Cryotherapy Cold Packs 15989 07/13 MIGUEL PETERSON Physical Therapy Gait Training Physical Therapy Gait Training 91257 07/13 MIGUEL PETERSON Physical Medicine - Group Physical Therapy Se ion Physical Medicine - Group Physical Therapy Session 53623 07/09 TALHA FRANKLIN [facility] Threshold Audiogram (Pure Tone) Automated Threshold Audiogram (Pure Tone) Automated 0208T 07/02 FLIP KWAN [facility] Patient education, not otherwise cla ified, non-physician provider, group, per se JAM Aguero Brief communication technology-based service, e.g. virtual check-in, by a physician or other qualified health care profregina euceda who can report evaluation and management services, provided to an established patient, not originating from a related E/M service provided within the previous 7 days nor leading to an E/M service or procedure within the next 24 hours or soonest available appointment; 5-10 minutes of medical discu ion CLIFTON BHAKTA [facility] Preventive Medicine Administration Of Health Risk Questionnaire Patient-Focused Preventive Medicine Administration Of Health Risk Questionnaire Patient-Focused 47906 CLIFTON BHAKTA [facility] Waiver services; not otherwise specified (NOS) YISSEL BALLESTEROS [facility] Spirometry Spirometry 73689 LYN LEWIS [facility] Non-Physician Phone Call To Patient/Provider Brief (5-10min) Non-Physician Phone Call To Patient/Provider Brief (5-10min) 15891 LARRY ELAINE [facility] Sleep Study Unattended Record: Heart Rate, O2 Saturation, Respiratory Analysis Sleep Study Unattended Record: Heart Rate, O2 Saturation, Respiratory Analysis 50412 ANGELES DALY [facility] Hospital outpatient clinic visit specimen collection for severe acute respiratory syndrome coronavirus 2 (sars-cov-2) (coronavirus disease [covid-19]), any specimen source TAZ GODOY [facility] Threshold Audiogram (Pure Tone) Automated Threshold Audiogram (Pure Tone) Automated 0208T BELÉN COREY [facility] Non-Physician Phone Call To Pt/Provider Intermed (11-20 min) Non-Physician Phone Call To Pt/Provider Intermed (11-20 min) 29452 PAPITO VASQUEZ [facility] Psychometric Neuropsych Testing Battery Admin By Computer Psychometric Neuropsych Testing Battery Admin By Computer 66960 LINDA RUDOLPH [facility] Physician Supervised Injection Intramuscular Antibiotic Physician Supervised Injection Intramuscular Antibiotic [id number] DRAKE DOWNING Verified pt's 6 rights. Pt denied any allergy to penicillin, shot was given at 0910. Injection was given in R lateral gluteus kenyon, landmark of R hip to mid axillary of gluteus kenyon used. Full dose was given with no adverse affects. Pt denied any pain or difficulty breathing or walking after injection. Pt waited in waiting room 10 mins after injection. [facility] Chiropractic Manip Treatmt (CMT) Spinal Three To Four Region Chiropractic Manip Treatmt (CMT) Spinal Three To Four Region 66677 JARRET LERNER [facility] Mobilization Soft Ti ue Mobilization Soft Tissue 31499 JARRET LERNER 8 minutes DoD Modalities Electrical Stimulation Unattended Modalities Electrical Stimulation Unattended 39646 JARRET LERNER [facility] Modalities Heat Hot Packs Modalities Heat Hot Packs 07895 JARRET LERNER [facility] Internet Med Svc Qual Nonphy Healthcare Prof Up To 7 Days Estab Pt 11-20 Min Internet Med Svc Qual Nonphy Healthcare Prof Up To 7 Days Estab Pt 11-20 Min 89634 PAPITO VASQUEZ [facility] Physical Therapy Service Evaluation Low Complexity Physical Therapy Service Evaluation Low Complexity 39065 ARMAAN ORTEGA [facility] Osteopathic Manip Treatment (OMT) 1-2 Body Regions Involved Osteopathic Manip Treatment (OMT) 1-2 Body Regions Involved 12324 ARMAAN ORTEGA [facility] Physical Therapy: ___ Se ion Segments, 15 Minutes Each Physical Therapy: ___ Session Segments, 15 Minutes Each 05897 ARMAAN ORTEGA Exercise equipment ARMAAN ORTEGA Corticosteroid Injection Interlaminar Approach Lumbar Corticosteroid Injection Interlaminar Approach Lumbar 09593 RANDY SANCHEZ [facility] Corticosteroid Inj Interlaminar Lumbar L4 - L5 Corticosteroid Inj Interlaminar Lumbar L4 - L5 32278 RANDY SANCHEZ [facility] Physical Therapy Service Re-Evaluation Physical Therapy Service Re-Evaluation 72648 ARMAAN ORTEGA Shaving Of Lesion Ankles .6 to 1cm Shaving Of Lesion Ankles .6 to 1cm 96395 RUCHI HOLLEY After explaining the nature of the procedure, risks (including but not limited to bleeding, infection, scarring, recurrence, numbness), benefits, and alternatives, patient agreed and signed consent. Name and of patient were verified. A procedure time out was performed and the site(s) for biopsy was/were confirmed along with patient identifiers (Name and ). The area was prepped with isopropyl alcohol and a shave biopsy was done. Specimen(s) sent to pathology. Local anesthesia with 1cc of 1% lidocaine with epinephrine. Sterile dressing applied and wound care discussed. [facility] Destruction Of Benign Lesion By Any Method 1 - 14 Lesions Destruction Of Benign Lesion By Any Method 1 - 14 Lesions 56045 RUCHI HOLLEY After verbally discussing reason for treatment (benign lesions), method and expected results (including crusting, scabbing, pain, resultant possible hypopigmentation , and recurrence of lesions), patient gave verbal consent. One to two cycles of 3-10 seconds of liquid nitrogen was applied to involved areas in a standard fashion. Cryotherapy was applied in a pulsed fashion to minimize collateral tissue damage. Number of cycles and thaw times (5-20 seconds) was used based on thickness of the lesions. Suggested vaseline ointment application to healing crusts if desired. [facility] Psychotherapy Group Interactive Psychotherapy Group Interactive [id number] BERNARDA CHOWDHURY [facility] [phone]. SM was not assessed individually for this encounter. SM fully participated in the [facility]. Topics presented included chronic pain neuroscience, acute verses chronic pain definitions, general chronic pain concepts, inconsistencies between image findings and pain experienced, pain understanding and treatment encompassing the biopsychosocial model, retraining the brain's danger response, and treatment focus on and strategies in chronic pain self-management. Group members were provided time for questions and discussion, were informed of option for individual sessions and were given MBW class information, and Online Resources and Back Facts handouts. [facility] Physical Therapy Functional Ability Training Each 15 Minutes Physical Therapy Functional Ability Training Each 15 Minutes 51293 ARMAAN ORTEGA [facility] Facial Dermabrasion Segmental, Face Facial Dermabrasion Segmental, Face 28473 RUCHI HOLLEY [facility] Nerve Block Trigeminal Nerve Block Trigeminal 38841 RUCHI HOLLEY [facility] Musculoskeletal Needle Insertion Without Injection 1 Or 2 Muscles Musculoskeletal Needle Insertion Without Injection 1 Or 2 Muscles 39258 ARMAAN ORTEGA [facility] Mobilization Soft Ti ue Mobilization Soft Tissue 69960 ARMAAN ORTEGA [facility] Psychometric Emotional / Behavioral A e ment Psychometric Emotional / Behavioral Assessment 65937 RA GREEN [facility] Clinical Social Work Individual Outpatient Counseling 60 Minutes Clinical Social Work Individual Outpatient Counseling 60 Minutes 52476 BATTLE LAKERA [place] Psychometric Emotional / Behavioral A e ment Psychometric Emotional / Behavioral Assessment 62217 10/21 [facility] Intervention, Each Additional 15 Minutes Individual Health And Behavior Intervention, Each Additional 15 Minutes Individual 95812 10/21 [facility] And Behav A e mt Each 15 Min Initial A e ment Health And Behav Assessmt Each 15 Min Initial Assessment 37494 10/21 [facility] Physical Therapy Service Re-Evaluation Physical Therapy Service Re-Evaluation 94121 07/12 ERICK BRENNAN [facility] Traction Equipment Traction Equipment 94150 07/08 MATTHEW LLAMAS [facility] Traction Equipment Traction Equipment 64653 06/27 MATTHEW LLAMAS [facility] Osteopathic Manip Treatment (OMT) 1-2 Body Regions Involved Osteopathic Manip Treatment (OMT) 1-2 Body Regions Involved 27247 06/27 ERICK BRENNAN [facility] Physical Therapy: ___ Se ion Segments, 15 Minutes Each Physical Therapy: ___ Session Segments, 15 Minutes Each 15012 06/27 ERICK BRENNAN [facility] Physical Therapy Service Evaluation Moderate Complexity Physical Therapy Service Evaluation Moderate Complexity 91454 06/27 ERICK BRENNAN Preventive Medicine Administration Of Health Risk Questionnaire Patient-Focused Preventive Medicine Administration Of Health Risk Questionnaire Patient-Focused 81445 06/12 ASHU SEPULVEDA Chiropractic Manip Treatmt (CMT) Spinal Three To Four Region Chiropractic Manip Treatmt (CMT) Spinal Three To Four Region 53664 06/01 RIAN SIMMS [facility] Preventive Medicine Administration Of Health Risk Questionnaire Patient-Focused Preventive Medicine Administration Of Health Risk Questionnaire Patient-Focused 62083 05/29 ANGELES SCHWARZ Internet Med Svc Qual Nonphys Healthcare Prof Up To 7 Days Estab Patient Internet Med Svc Qual Nonphys Healthcare Prof Up To 7 Days Estab Patient 23062 05/29 ANGELES SCHWARZ Audiogram (Screening) Audiogram (Screening) 22117 05/14 SAHIL BROTHERS [facility] Physical Therapy: ___ Se ion Segments, 15 Minutes Each Physical Therapy: ___ Session Segments, 15 Minutes Each 10935 05/09 MATTHEW LLAMAS [facility] Physical Therapy: ___ Se ion Segments, 15 Minutes Each Physical Therapy: ___ Session Segments, 15 Minutes Each 23274 05/01 ERICK BRENNAN Physical Therapy Service Re-Evaluation Physical Therapy Service Re-Evaluation 03898 05/01 ERICK BRENNAN Modalities Heat Hot Packs Modalities Heat Hot Packs 55325 04/24 CATALINA MCDERMOTT Physical Therapy: ___ Se ion Segments, 15 Minutes Each Physical Therapy: ___ Session Segments, 15 Minutes Each 81426 04/24 CATALINA MCDERMOTT Threshold Audiogram (Pure Tone) Automated Threshold Audiogram (Pure Tone) Automated [id number] 04/19 DREAD CALIX [facility] Patient education, not otherwise cla ified, non-physician provider, individual, per se ion 04/19 DREAD CALIX Modalities Heat Hot Packs Modalities Heat Hot Packs 70860 04/11 ASUNCION POST [facility] Physical Therapy: ___ Se ion Segments, 15 Minutes Each Physical Therapy: ___ Session Segments, 15 Minutes Each 05322 04/11 ASUNCION POST [facility] Physical Therapy: ___ Se ion Segments, 15 Minutes Each Physical Therapy: ___ Session Segments, 15 Minutes Each 29986 04/03 CATALINA MCDERMOTT Non-Physician Phone Call To Patient/Provider Brief (5-10min) Non-Physician Phone Call To Patient/Provider Brief (5-10min) 85657 03/28 JOCELINE ESPINO Physical Therapy: ___ Se ion Segments, 15 Minutes Each Physical Therapy: ___ Session Segments, 15 Minutes Each 21963 03/19 CATALINA MCDERMOTT Chiropractic Manip Treatmt (CMT) Spinal Three To Four Region Chiropractic Manip Treatmt (CMT) Spinal Three To Four Region 93475 03/19 RIAN SIMMS Physical Therapy: ___ Se ion Segments, 15 Minutes Each Physical Therapy: ___ Session Segments, 15 Minutes Each 94160 03/09 ERICK BRENNAN Physical Therapy Service Evaluation Moderate Complexity Physical Therapy Service Evaluation Moderate Complexity 02169 03/09 ERICK BRENNAN Non-Physician Phone Call To Patient/Provider Brief (5-10min) Non-Physician Phone Call To Patient/Provider Brief (5-10min) 74514 02/27 JOCELINE ESPINO Preventive Medicine Services: Counseling/Educatio n On Self-Care Preventive Medicine Services: Counseling/Educat ion On Self-Care 4450F 01/10 JUNIOR GRAY [facility] Non-Physician Phone Call To Patient/Provider Brief (5-10min) Non-Physician Phone Call To Patient/Provider Brief (5-10min) 97403 01/09 GERARDO LYLE Chiropractic Manip Treatmt (CMT) Spinal Three To Four Region Chiropractic Manip Treatmt (CMT) Spinal Three To Four Region 27583 08/31 RIAN SIMMS Chiropractic Manip Treatmt (CMT) Spinal Three To Four Region Chiropractic Manip Treatmt (CMT) Spinal Three To Four Region 70858 08/15 RIAN SIMMS Chiropractic Manip Treatmt (CMT) Spinal Three To Four Region Chiropractic Manip Treatmt (CMT) Spinal Three To Four Region 22540 07/13 RIAN SIMMS Preventive Medicine Administration Of Health Risk Questionnaire Patient-Focused Preventive Medicine Administration Of Health Risk Questionnaire Patient-Focused 87314 06/16 ANGELES SCHWARZ Internet Med Svc Qual Nonphys Healthcare Prof Up To 7 Days Estab Patient Internet Med Svc Qual Nonphys Healthcare Prof Up To 7 Days Estab Patient 02315 06/16 ANGELES SCHWARZ Chiropractic Manip Treatmt (CMT) Spinal Three To Four Region Chiropractic Manip Treatmt (CMT) Spinal Three To Four Region 06129 06/13 RIAN SIMMS Chiropractic Manip Treatmt (CMT) Spinal One To Two Regions Chiropractic Manip Treatmt (CMT) Spinal One To Two Regions 65329 06/01 RIAN SIMMS Internet Med Svc Qual Nonphys Healthcare Prof Up To 7 Days Estab Patient Internet Med Svc Qual Nonphys Healthcare Prof Up To 7 Days Estab Patient 13784 05/30 BRADLY FRENCH Modalities Heat Hot Packs Modalities Heat Hot Packs 00213 05/28 JOCELINE CERVANTES Physical Therapy: ___ Se ion Segments, 15 Minutes Each Physical Therapy: ___ Session Segments, 15 Minutes Each 81174 05/21 JOCELINE CERVANTES Modalities Heat Hot Packs Modalities Heat Hot Packs 23969 05/21 JOCELINE CERVANTES Acoustic Reflex Testing Acoustic Reflex Testing 98739 05/18 JOCELINE AKERS Tympanometry Tympanometry 35481 05/18 JOCELINE AKERS Comprehensive Audiometry Comprehensive Audiometry 39398 05/18 JOCELINE AKERS Chiropractic Manip Treatmt (CMT) Spinal Three To Four Region Chiropractic Manip Treatmt (CMT) Spinal Three To Four Region 88929 05/16 RIAN SIMMS Modalities Heat Hot Packs Modalities Heat Hot Packs 40048 05/14 JOCELINE CERVANTES Physical Therapy: ___ Se ion Segments, 15 Minutes Each Physical Therapy: ___ Session Segments, 15 Minutes Each 76150 05/14 JOCELINE CERVANTES Threshold Audiogram (Pure Tone) Automated Threshold Audiogram (Pure Tone) Automated [id number] 04/11 BHAVNA ORTEGA [facility] Patient education, not otherwise cla ified, non-physician provider, group, per se ion 04/11 BHAVNA ORTEGA [facility] Physical Therapy Service Evaluation Low Complexity Physical Therapy Service Evaluation Low Complexity 96755 03/28 BILLY DON A isted Exercises For ROM Assisted Exercises For ROM 56835 03/28 BILLY DON Threshold Audiogram (Pure Tone) Automated Threshold Audiogram (Pure Tone) Automated [id number] 03/27 TAMIKO WILSON Patient education, not otherwise cla ified, non-physician provider, group, per se ion 03/27 TAMIKO WILSON [facility] Non-Physician Phone Call To Pt/Provider Intermed (11-20 min) Non-Physician Phone Call To Pt/Provider Intermed (11-20 min) 35785 03/23 DARINEL BROWNLEE [facility] Non-Physician Phone Call To Patient/Provider Brief (5-10min) Non-Physician Phone Call To Patient/Provider Brief (5-10min) 85879 11/01 REBEL GONZALEZ [facility] Non-Physician Phone Call To Patient/Provider Brief (5-10min) Non-Physician Phone Call To Patient/Provider Brief (5-10min) 39745 10/04 MAYTE HINES [facility] Non-Physician Phone Call To Patient/Provider Brief (5-10min) Non-Physician Phone Call To Patient/Provider Brief (5-10min) 65910 07/28 KAYLIE EVANS [facility] Physical Therapy Service Re-Evaluation Physical Therapy Service Re-Evaluation 61161 06/15 BILLY DON [facility] Physical Therapy: ___ Se ion Segments, 15 Minutes Each Physical Therapy: ___ Session Segments, 15 Minutes Each 47782 05/30 THI NESS [facility] Modalities Heat Hot Packs Modalities Heat Hot Packs 20643 05/22 THI NESS [facility] Physician Supervised Injection Intramuscular Antibiotic Physician Supervised Injection Intramuscular Antibiotic 69680 CHRISTINE COHN [facility] Health And Behavior A e ment, Each 15 Minutes Health And Behavior Assessment, Each 15 Minutes 62294 FRED FRENCH [facility] Health And Behav A e mt Each 15 Min Initial A e ment Health And Behav Assessmt Each 15 Min Initial Assessment 69506 FRED FRENCH [facility] Osteopathic Manip Treatment (OMT) 3-4 Body Regions Involved Osteopathic Manip Treatment (OMT) 3-4 Body Regions Involved 78826 RITA ANDREWS [facility] Modalities Electrical Stimulation Attended Each 15 Minutes Modalities Electrical Stimulation Attended Each 15 Minutes 85961 RITA ANDREWS [facility] Physical or manipulative therapy performed for maintenance rather than taoist RITA ANDREWS [facility] Needle, sterile, any size, each RITA ANDREWS [facility] Vaccine SARS-CoV-2 mRNA-LNP Aaron Protein Preservative Free 100mcg/0.5mL IM Vaccine SARS-CoV-2 mRNA-LNP Aaron Protein Preservative Free 100mcg/0.5mL IM [address] [facility] Vaccine SARS-CoV-2 mRNA-LNP Aaron Protein Preservative Free 100mcg/0.5mL IM First Dose Vaccine SARS-CoV-2 mRNA-LNP Aaron Protein Preservative Free 100mcg/0.5mL IM First Dose 0011A [facility] Vital Signs Recorded Vital Signs Recorded LINDSAY NORMAN [facility] Bioelectrical Impedance Analysis Whole Body Supine With Interpretation And Report Bioelectrical Impedance Analysis Whole Body Supine With Interpretation And Report 0358T LINDSAY NORMAN [facility] Pulmonary Function - O2 Uptake - Gas Analysis Pulmonary Function - O2 Uptake - Gas Analysis 99850 LINDSAY NORMAN [facility] Nutrition cla es, non-physician provider, per se ion JAM CARLTON [facility] Vaccine SARS-CoV-2 mRNA-LNP Aaron Protein Preservative Free 100mcg/0.5mL IM Second Dose Vaccine SARS-CoV-2 mRNA-LNP Aaron Protein Preservative Free 100mcg/0.5mL IM Second Dose 0012A PRIMITIVO NELSON [facility] Health And Behavior Intervention, Each Additional 15 Minutes Individual Health And Behavior Intervention, Each Additional 15 Minutes Individual 00021 BERTA BOWER III [facility] Physician Supervised Injection Intramuscular Physician Supervised Injection Intramuscular 56823 LINDSAY CRESPO Please give 30mg IM Ketorolac in clinic now. [facility] Injection, ketorolac tromethamine, per 15 mg LINDSAY CRESPO [facility] Patient education, not otherwise cla ified, non-physician provider, individual, per se PA[place] [facility] SCREENING TEST, PURE TONE, AIR ONLY 10/27 [facility] SCREENING TEST, PURE TONE, AIR ONLY 10/26 [facility] SIMPLE REPAIR OF SUPERFICIAL WOUNDS OF SCALP, NECK, AXILLAE, EXTERNAL GENITALIA, TRUNK AND/OR EXTREMITIES (INCLUDING HANDS AND FEET); 2.5 CM OR LESS 02/21 [facility] CIRCUMCISION 11/07 [facility] OTHER PHOTOTHERAPY 11/07 DoD TELE ASSESS & MGT SRV PROV QUAL NONPHYS HLTH CARE PRO TO EST PAT,PARENT,GUARD NOT ORIG REL ASSESS & MGT SRV PROV W/IN PREV 7 DAYS NOR LEAD ASSESS & MGT SRV/PX W/IN NXT 24 HR/SOON APT;5-10 MIN MED DIS 10/29 DoD WAIVER SERVICES; NOT OTHERWISE SPECIFIED (NOS) 08/25 DoD ADMINISTRATION OF PATIENT-FOCUSED HEALTH RISK ASSESSMENT INSTRUMENT (EG, HEALTH HAZARD APPRAISAL) WITH SCORING AND DOCUMENTATION, PER STANDARDIZED INSTRUMENT 08/08 DoD BRIEF COMM TECH-BASE SERV,E.G. VIRT CHK-IN,BY PHYS/OTH QUAL HCP,RPT E&M SERV,PROV TO EST PT,NOT ORIG FRM REL E/M SERV PROV W/IN PREV 7DAY NOR LEAD TO E/M SRV/PX W/IN NEXT 24HR/SOON YAMIL; 5-10 MIN DISC 06/23 DoD TELE ASSESS & MGT SRV PROV QUAL NONPHYS HLTH CARE PRO TO EST PAT,PARENT,GUARD NOT ORIG REL ASSESS & MGT SRV PROV W/IN PREV 7 DAYS NOR LEAD ASSESS & MGT SRV/PX W/IN NXT 24H/SOON APT; 11-20 MIN MED DIS 05/30 DoD PATIENT EDUCATION, NOT OTHERWISE CLASSIFIED, NON-PHYSICIAN PROVIDER, INDIVIDUAL, PER SESSION 05/20 DoD PATIENT EDUCATION, NOT OTHERWISE CLASSIFIED, NON-PHYSICIAN PROVIDER, INDIVIDUAL, PER SESSION 04/26 DoD TELE ASSESS & MGT SRV PROV QUAL NONPHYS HLTH CARE PRO TO EST PAT,PARENT,GUARD NOT ORIG REL ASSESS & MGT SRV PROV W/IN PREV 7 DAYS NOR LEAD ASSESS & MGT SRV/PX W/IN NXT 24H/SOON APT; 11-20 MIN MED DIS 03/08 DoD INJECTION, KETOROLAC TROMETHAMINE, PER 15 MG 01/16 DoD INFECTIOUS AGENT ANTIGEN DETECTION BY IMMUNOASSAY WITH DIRECT OPTICAL (IE, VISUAL) OBSERVATION; INFLUENZA 12/04 DoD BRIEF EMOTIONAL/BEHAVIORA L ASSESSMENT (EG, DEPRESSION INVENTORY, ATTENTION-DEFICIT/H YPERACTIVITY DISORDER [ADHD] SCALE), WITH SCORING AND DOCUMENTATION, PER STANDARDIZED INSTRUMENT 11/08 DoD BRIEF EMOTIONAL/BEHAVIORA L ASSESSMENT (EG, DEPRESSION INVENTORY, ATTENTION-DEFICIT/H YPERACTIVITY DISORDER [ADHD] SCALE), WITH SCORING AND DOCUMENTATION, PER STANDARDIZED INSTRUMENT 10/22 DoD RE-EVAL,PHYSICAL THERAPY EST PLAN OF CARE,REQ:EXAM,REV,H X & USE,STAND TESTS &KIERA REQ;REV PLAN OF CARE USING STAND PAT ASSESS INSTR &/KIERA ASSESS FUNC OUTCOME TYP,20 MIN SPENT [id number] W PAT&/FAM 07/12 DoD APPLICATION OF A MODALITY TO 1 OR MORE AREAS; TRACTION, MECHANICAL 07/09 DoD APPLICATION OF A MODALITY TO 1 OR MORE AREAS; TRACTION, MECHANICAL 06/28 DoD OSTEOPATHIC MANIPULATIVE TREATMENT (OMT); 1-2 BODY REGIONS INVOLVED 06/28 DoD ADMINISTRATION OF PATIENT-FOCUSED HEALTH RISK ASSESSMENT INSTRUMENT (EG, HEALTH HAZARD APPRAISAL) WITH SCORING AND DOCUMENTATION, PER STANDARDIZED INSTRUMENT 06/12 DoD CHIROPRACTIC MANIPULATIVE TREATMENT (CMT); SPINAL, 3-4 REGIONS 06/01 DoD ADMINISTRATION OF PATIENT-FOCUSED HEALTH RISK ASSESSMENT INSTRUMENT (EG, HEALTH HAZARD APPRAISAL) WITH SCORING AND DOCUMENTATION, PER STANDARDIZED INSTRUMENT 05/30 DoD SCREENING TEST, PURE TONE, AIR ONLY 05/15 DoD THERAPEUTIC PROCEDURE, 1 OR MORE AREAS, EACH 15 MINUTES; THERAPEUTIC EXERCISES TO DEVELOP STRENGTH AND ENDURANCE, RANGE OF MOTION AND FLEXIBILITY 05/09 DoD THERAPEUTIC PROCEDURE, 1 OR MORE AREAS, EACH 15 MINUTES; THERAPEUTIC EXERCISES TO DEVELOP STRENGTH AND ENDURANCE, RANGE OF MOTION AND FLEXIBILITY 05/01 DoD APPLICATION OF A MODALITY TO 1 OR MORE AREAS; HOT OR COLD PACKS 04/20 DoD PURE TONE AUDIOMETRY (THRESHOLD), AUTOMATED; AIR ONLY 04/13 DoD APPLICATION OF A MODALITY TO 1 OR MORE AREAS; HOT OR COLD PACKS 04/11 DoD THERAPEUTIC PROCEDURE, 1 OR MORE AREAS, EACH 15 MINUTES; THERAPEUTIC EXERCISES TO DEVELOP STRENGTH AND ENDURANCE, RANGE OF MOTION AND FLEXIBILITY 03/30 DoD TELE ASSESS & MGT SRV PROV QUAL NONPHYS HLTH CARE PRO TO EST PAT,PARENT,GUARD NOT ORIG REL ASSESS & MGT SRV PROV W/IN PREV 7 DAYS NOR LEAD ASSESS & MGT SRV/PX W/IN NXT 24 HR/SOON APT;5-10 MIN MED DIS 03/28 DoD CHIROPRACTIC MANIPULATIVE TREATMENT (CMT); SPINAL, 3-4 REGIONS 03/19 DoD THERAPEUTIC PROCEDURE, 1 OR MORE AREAS, EACH 15 MINUTES; THERAPEUTIC EXERCISES TO DEVELOP STRENGTH AND ENDURANCE, RANGE OF MOTION AND FLEXIBILITY 03/16 DoD THERAPEUTIC PROCEDURE, 1 OR MORE AREAS, EACH 15 MINUTES; THERAPEUTIC EXERCISES TO DEVELOP STRENGTH AND ENDURANCE, RANGE OF MOTION AND FLEXIBILITY 03/09 DoD TELE ASSESS & MGT SRV PROV QUAL NONPHYS HLTH CARE PRO TO EST PAT,PARENT,GUARD NOT ORIG REL ASSESS & MGT SRV PROV W/IN PREV 7 DAYS NOR LEAD ASSESS & MGT SRV/PX W/IN NXT 24 HR/SOON APT;5-10 MIN MED DIS 02/23 DoD TELE ASSESS & MGT SRV PROV QUAL NONPHYS HLTH CARE PRO TO EST PAT,PARENT,GUARD NOT ORIG REL ASSESS & MGT SRV PROV W/IN PREV 7 DAYS NOR LEAD ASSESS & MGT SRV/PX W/IN NXT 24 HR/SOON APT;5-10 MIN MED DIS 01/10 DoD CHIROPRACTIC MANIPULATIVE TREATMENT (CMT); SPINAL, 3-4 REGIONS 09/01 DoD CHIROPRACTIC MANIPULATIVE TREATMENT (CMT); SPINAL, 3-4 REGIONS 08/15 DoD CHIROPRACTIC MANIPULATIVE TREATMENT (CMT); SPINAL, 3-4 REGIONS 07/13 DoD ADMINISTRATION OF PATIENT-FOCUSED HEALTH RISK ASSESSMENT INSTRUMENT (EG, HEALTH HAZARD APPRAISAL) WITH SCORING AND DOCUMENTATION, PER STANDARDIZED INSTRUMENT 06/16 DoD CHIROPRACTIC MANIPULATIVE TREATMENT (CMT); SPINAL, 3-4 REGIONS 06/13 DoD CHIROPRACTIC MANIPULATIVE TREATMENT (CMT); SPINAL, 1-2 REGIONS 06/01 DoD APPLICATION OF A MODALITY TO 1 OR MORE AREAS; HOT OR COLD PACKS 05/29 DoD ONLINE ASSESS &MANAG SERV PROVIDE,A QUAL NONPHYS HCP TO AN ESTABLISHED PAT/GUARDIAN,NOT ORIGINAT FRM RELAT ASSESS &MANAG SERV PROVIDE W/IN THE PREV 7 DAYS,USE THE INTERNET/SIMILAR [employer] NETWORK 05/22 DoD APPLICATION OF A MODALITY TO 1 OR MORE AREAS; HOT OR COLD PACKS 05/22 DoD ACOUSTIC REFLEX TESTING, THRESHOLD 05/18 DoD CHIROPRACTIC MANIPULATIVE TREATMENT (CMT); SPINAL, 3-4 REGIONS 05/16 DoD APPLICATION OF A MODALITY TO 1 OR MORE AREAS; HOT OR COLD PACKS 05/15 DoD PURE TONE AUDIOMETRY (THRESHOLD), AUTOMATED; AIR ONLY 04/11 DoD GLUCOSE, BLOOD BY GLUCOSE MONITORING DEVICE(S) CLEARED BY THE FDA SPECIFICALLY FOR HOME USE 04/05 DoD PHYSICAL THERAPY EVALUATION:LOW COMPLEXITY,REQ:HIST W NO PERS FACT &/COMORB THAT IMPACT PLAN OF CARE;CLIN DECIS MAKING OF LOW COMPLEXITY,TYPICALL Y,20 MIN ARE SPENT [id number] W THE PATIENT &/FAMILY 03/28 DoD PURE TONE AUDIOMETRY (THRESHOLD), AUTOMATED; AIR ONLY 03/27 DoD TELE ASSESS & MGT SRV PROV QUAL NONPHYS HLTH CARE PRO TO EST PAT,PARENT,GUARD NOT ORIG REL ASSESS & MGT SRV PROV W/IN PREV 7 DAYS NOR LEAD ASSESS & MGT SRV/PX W/IN NXT 24H/SOON APT; 11-20 MIN MED DIS 03/23 DoD TELE ASSESS & MGT SRV PROV QUAL NONPHYS HLTH CARE PRO TO EST PAT,PARENT,GUARD NOT ORIG REL ASSESS & MGT SRV PROV W/IN PREV 7 DAYS NOR LEAD ASSESS & MGT SRV/PX W/IN NXT 24 HR/SOON APT;5-10 MIN MED DIS 10/26 DoD TELE ASSESS & MGT SRV PROV QUAL NONPHYS HLTH CARE PRO TO EST PAT,PARENT,GUARD NOT ORIG REL ASSESS & MGT SRV PROV W/IN PREV 7 DAYS NOR LEAD ASSESS & MGT SRV/PX W/IN NXT 24 HR/SOON APT;5-10 MIN MED DIS 10/03 DoD TELE ASSESS & MGT SRV PROV QUAL NONPHYS HLTH CARE PRO TO EST PAT,PARENT,GUARD NOT ORIG REL ASSESS & MGT SRV PROV W/IN PREV 7 DAYS NOR LEAD ASSESS & MGT SRV/PX W/IN NXT 24 HR/SOON APT;5-10 MIN MED DIS 07/28 DoD PHYSICAL THERAPY RE-EVALUATION 06/02 DoD THERAPEUTIC PROCEDURE, 1 OR MORE AREAS, EACH 15 MINUTES; THERAPEUTIC EXERCISES TO DEVELOP STRENGTH AND ENDURANCE, RANGE OF MOTION AND FLEXIBILITY 05/30 DoD APPLICATION OF A MODALITY TO 1 OR MORE AREAS; HOT OR COLD PACKS 05/23 DoD TELE ASSESS & MGT SRV PROV QUAL NONPHYS HLTH CARE PRO TO EST PAT,PARENT,GUARD NOT ORIG REL ASSESS & MGT SRV PROV W/IN PREV 7 DAYS NOR LEAD ASSESS & MGT SRV/PX W/IN NXT 24 HR/SOON APT;5-10 MIN MED DIS 05/20 DoD APPLICATION OF A MODALITY TO 1 OR MORE AREAS; HOT OR COLD PACKS 05/17 DoD APPLICATION OF A MODALITY TO 1 OR MORE AREAS; HOT OR COLD PACKS 05/12 DoD SELF-CARE/HOME MANAGMENT TRAIN (EG,ACT OF DAILY LIVING (ADL) &COMPENSAT TRAIN,MEAL PREPARATION,SAFETY PROCS,AND INSTRUCT IN USE OF ASST TECHNOLOGY DEV/ADPT EQUIP) DIR ONE-ON-ONE CONT,EA 15 MINUTES 04/18 DoD PURE TONE AUDIOMETRY (THRESHOLD), AUTOMATED; AIR ONLY 04/15 DoD HEALTH AND BEHAVIOR INTERVENTION, EACH 15 MINUTES, [id number]; INDIVIDUAL 04/12 [facility] DETERMINATION OF REFRACTIVE STATE 04/07 DoD TELE ASSESS & MGT SRV PROV QUAL NONPHYS HLTH CARE PRO TO EST PAT,PARENT,GUARD NOT ORIG REL ASSESS & MGT SRV PROV W/IN PREV 7 DAYS NOR LEAD ASSESS & MGT SRV/PX W/IN NXT 24H/SOON APT; 11-20 MIN MED DIS 04/05 DoD HEALTH&BEHAV ASSESSMENT (EG, HEALTH-FOC CLINICAL INTERVIEW, BEHAVIORAL OBSERVATIONS, PSYCHOPHYSICOLOGICA L MONITOR, HEALTH-ORIENT QUESTIONNAIRES), EA 15 MIN [id number]-RU-[id number] W THE PATIENT; INIT ASSESSMENT 03/28 DoD TELE ASSESS & MGT SRV PROV QUAL NONPHYS HLTH CARE PRO TO EST PAT,PARENT,GUARD NOT ORIG REL ASSESS & MGT SRV PROV W/IN PREV 7 DAYS NOR LEAD ASSESS & MGT SRV/PX W/IN NXT 24H/SOON APT; 11-20 MIN MED DIS 03/25 DoD THERAPEUTIC PROCEDURE(S), GROUP (2 OR MORE INDIVIDUALS) 07/09 DoD APPLICATION OF A MODALITY TO 1 OR MORE AREAS; HOT OR COLD PACKS 07/08 DoD PURE TONE AUDIOMETRY (THRESHOLD), AUTOMATED; AIR ONLY 07/02 DoD BRIEF EMOTIONAL/BEHAVIORA L ASSESSMENT (EG, DEPRESSION INVENTORY, ATTENTION-DEFICIT/H YPERACTIVITY DISORDER [ADHD] SCALE), WITH SCORING AND DOCUMENTATION, PER STANDARDIZED INSTRUMENT 04/15 DoD PSYCHOTHERAPY, 60 MINUTES WITH PATIENT 04/08 DoD SPIROMETRY, INCLUDING GRAPHIC RECORD, TOTAL AND TIMED VITAL CAPACITY, EXPIRATORY FLOW RATE MEASUREMENT(S), WITH OR WITHOUT MAXIMAL VOLUNTARY VENTILATION 04/08 DoD THERAPEUTIC PROCEDURE, 1 OR MORE AREAS, EACH 15 MINUTES; THERAPEUTIC EXERCISES TO DEVELOP STRENGTH AND ENDURANCE, RANGE OF MOTION AND FLEXIBILITY 04/05 DoD PURE TONE AUDIOMETRY (THRESHOLD), AUTOMATED; AIR ONLY 04/04 DoD APPLICATION OF A MODALITY TO 1 OR MORE AREAS; ELECTRICAL STIMULATION (UNATTENDED) 03/28 DoD APPLICATION OF A MODALITY TO 1 OR MORE AREAS; ELECTRICAL STIMULATION (UNATTENDED) 03/24 DoD THERAPEUTIC PROCEDURE, 1 OR MORE AREAS, EACH 15 MINUTES; THERAPEUTIC EXERCISES TO DEVELOP STRENGTH AND ENDURANCE, RANGE OF MOTION AND FLEXIBILITY 03/17 DoD INJECTION(S), ANESTHETIC AGENT(S) AND/OR STEROID; TRIGEMINAL NERVE, EACH BRANCH (IE, OPHTHALMIC, MAXILLARY, MANDIBULAR) 03/10 DoD THERAPEUTIC PROCEDURE, 1 OR MORE AREAS, EACH 15 MINUTES; THERAPEUTIC EXERCISES TO DEVELOP STRENGTH AND ENDURANCE, RANGE OF MOTION AND FLEXIBILITY 03/09 DoD THERAPEUTIC PROCEDURE, 1 OR MORE AREAS, EACH 15 MINUTES; THERAPEUTIC EXERCISES TO DEVELOP STRENGTH AND ENDURANCE, RANGE OF MOTION AND FLEXIBILITY 03/02 DoD THERAPEUTIC PROCEDURE, 1 OR MORE AREAS, EACH 15 MINUTES; THERAPEUTIC EXERCISES TO DEVELOP STRENGTH AND ENDURANCE, RANGE OF MOTION AND FLEXIBILITY 02/16 DoD GROUP PSYCHOTHERAPY (OTHER THAN OF A MULTIPLE-FAMILY GROUP) 02/16 DoD THERAPEUTIC PROCEDURE, 1 OR MORE AREAS, EACH 15 MINUTES; THERAPEUTIC EXERCISES TO DEVELOP STRENGTH AND ENDURANCE, RANGE OF MOTION AND FLEXIBILITY 02/11 DoD DESTRUCTION (EG, LASER SURGERY, ELECTROSURGERY, CRYOSURGERY, CHEMOSURGERY, SURGICAL CURETTEMENT), OF BENIGN LESIONS OTHER THAN SKIN TAGS OR CUTANEOUS VASCULAR PROLIFERATIVE LESIONS; UP TO 14 LESIONS 02/09 DoD THERAPEUTIC PROCEDURE, 1 OR MORE AREAS, EACH 15 MINUTES; THERAPEUTIC EXERCISES TO DEVELOP STRENGTH AND ENDURANCE, RANGE OF MOTION AND FLEXIBILITY 02/09 DoD THERAPEUTIC PROCEDURE, 1 OR MORE AREAS, EACH 15 MINUTES; THERAPEUTIC EXERCISES TO DEVELOP STRENGTH AND ENDURANCE, RANGE OF MOTION AND FLEXIBILITY 02/08 DoD TELE ASSESS & MGT SRV PROV QUAL NONPHYS HLTH CARE PRO TO EST PAT,PARENT,GUARD NOT ORIG REL ASSESS & MGT SRV PROV W/IN PREV 7 DAYS NOR LEAD ASSESS & MGT SRV/PX W/IN NXT 24 HR/SOON APT;5-10 MIN MED DIS 02/07 DoD INJECTION(S),DIAG/T HER SUBSTANCE(S) (EG,ANES,ANTISPASMO D,OPIOID,STEROID,OT H MIRIAM),NOT INCL NEUROLYTIC SUBS,INCL NEEDLE/CATH PLACEMENT,INTERLAMI RITA EPIDURAL/SUBARACH,L UMBAR/SACRAL (CAUDAL);WO IMAG GUID 02/02 DoD APPLICATION OF A MODALITY TO 1 OR MORE AREAS; HOT OR COLD PACKS 02/02 DoD APPLICATION OF A MODALITY TO 1 OR MORE AREAS; HOT OR COLD PACKS 01/25 DoD THERAPEUTIC PROCEDURE, 1 OR MORE AREAS, EACH 15 MINUTES; THERAPEUTIC EXERCISES TO DEVELOP STRENGTH AND ENDURANCE, RANGE OF MOTION AND FLEXIBILITY 01/19 DoD EXERCISE EQUIPMENT 01/11 DoD TELE ASSESS & MGT SRV PROV QUAL NONPHYS HLTH CARE PRO TO EST PAT,PARENT,GUARD NOT ORIG REL ASSESS & MGT SRV PROV W/IN PREV 7 DAYS NOR LEAD ASSESS & MGT SRV/PX W/IN NXT 24 HR/SOON APT;5-10 MIN MED DIS 12/20 DoD APPLICATION OF A MODALITY TO 1 OR MORE AREAS; HOT OR COLD PACKS 12/20 DoD TELE ASSESS & MGT SRV PROV QUAL NONPHYS HLTH CARE PRO TO EST PAT,PARENT,GUARD NOT ORIG REL ASSESS & MGT SRV PROV W/IN PREV 7 DAYS NOR LEAD ASSESS & MGT SRV/PX W/IN NXT 24 HR/SOON APT;5-10 MIN MED DIS 12/14 DoD QUALIFIED NONPHYSICIAN HEALTH WASTEWATER TREATMENT ENGINEER ONLINE DIGITAL ASSESSMENT AND MANAGEMENT, FOR AN ESTABLISHED PATIENT, FOR UP TO 7 DAYS, CUMULATIVE TIME DURING THE 7 DAYS; 11-20 MINUTES 12/02 DoD APPLICATION OF A MODALITY TO 1 OR MORE AREAS; HOT OR COLD PACKS 12/02 DoD APPLICATION OF A MODALITY TO 1 OR MORE AREAS; HOT OR COLD PACKS 11/25 DoD APPLICATION OF A MODALITY TO 1 OR MORE AREAS; HOT OR COLD PACKS 11/11 DoD TELE ASSESS & MGT SRV PROV QUAL NONPHYS HLTH CARE PRO TO EST PAT,PARENT,GUARD NOT ORIG REL ASSESS & MGT SRV PROV W/IN PREV 7 DAYS NOR LEAD ASSESS & MGT SRV/PX W/IN NXT 24 HR/SOON APT;5-10 MIN MED DIS 10/20 DoD BRIEF EMOTIONAL/BEHAVIORA L ASSESSMENT (EG, DEPRESSION INVENTORY, ATTENTION-DEFICIT/H YPERACTIVITY DISORDER [ADHD] SCALE), WITH SCORING AND DOCUMENTATION, PER STANDARDIZED INSTRUMENT 10/19 DoD APPLICATION OF A MODALITY TO 1 OR MORE AREAS; HOT OR COLD PACKS 10/18 DoD APPLICATION OF A MODALITY TO 1 OR MORE AREAS; HOT OR COLD PACKS 10/11 DoD TELE ASSESS & MGT SRV PROV QUAL NONPHYS HLTH CARE PRO TO EST PAT,PARENT,GUARD NOT ORIG REL ASSESS & MGT SRV PROV W/IN PREV 7 DAYS NOR LEAD ASSESS & MGT SRV/PX W/IN NXT 24 HR/SOON APT;5-10 MIN MED DIS 10/06 DoD APPLICATION OF A MODALITY TO 1 OR MORE AREAS; HOT OR COLD PACKS 10/04 DoD TELE ASSESS & MGT SRV PROV QUAL NONPHYS HLTH CARE PRO TO EST PAT,PARENT,GUARD NOT ORIG REL ASSESS & MGT SRV PROV W/IN PREV 7 DAYS NOR LEAD ASSESS & MGT SRV/PX W/IN NXT 24 HR/SOON APT;5-10 MIN MED DIS 09/28 DoD THERAPEUTIC, PROPHYLACTIC, OR DIAGNOSTIC INJECTION (SPECIFY SUBSTANCE OR DRUG); SUBCUTANEOUS OR INTRAMUSCULAR 09/20 DoD PSYCHOLOGICAL OR NEUROPSYCHOLOGICAL TEST ADMINISTRATION, WITH SINGLE AUTOMATED, STANDARDIZED INSTRUMENT VIA ELECTRONIC PLATFORM, WITH AUTOMATED RESULT ONLY 08/05 DoD ADMINISTRATION OF PATIENT-FOCUSED HEALTH RISK ASSESSMENT INSTRUMENT (EG, HEALTH HAZARD APPRAISAL) WITH SCORING AND DOCUMENTATION, PER STANDARDIZED INSTRUMENT 08/03 DoD WAIVER SERVICES; NOT OTHERWISE SPECIFIED (NOS) 07/12 DoD TELE ASSESS & MGT SRV PROV QUAL NONPHYS HLTH CARE PRO TO EST PAT,PARENT,GUARD NOT ORIG REL ASSESS & MGT SRV PROV W/IN PREV 7 DAYS NOR LEAD ASSESS & MGT SRV/PX W/IN NXT 24H/SOON APT; 11-20 MIN MED DIS 05/20 DoD PURE TONE AUDIOMETRY (THRESHOLD), AUTOMATED; AIR ONLY 04/02 DoD SPIROMETRY, INCLUDING GRAPHIC RECORD, TOTAL AND TIMED VITAL CAPACITY, EXPIRATORY FLOW RATE MEASUREMENT(S), WITH OR WITHOUT MAXIMAL VOLUNTARY VENTILATION 03/11 DoD HOSPITAL OUTPATIENT CLINIC VISIT SPECIMEN COLLECTION FOR SEVERE ACUTE RESPIRATORY SYNDROME CORONAVIRUS 2 (SARS-COV-2) (CORONAVIRUS DISEASE [COVID-19]), ANY SPECIMEN SOURCE 02/08 DoD TELE ASSESS & MGT SRV PROV QUAL NONPHYS HLTH CARE PRO TO EST PAT,PARENT,GUARD NOT ORIG REL ASSESS & MGT SRV PROV W/IN PREV 7 DAYS NOR LEAD ASSESS & MGT SRV/PX W/IN NXT 24 HR/SOON APT;5-10 MIN MED DIS 12/30 DoD ELECTROCARDIOGRAM, ROUTINE ECG WITH AT LEAST 12 LEADS; WITH INTERPRETATION AND REPORT 12/22 DoD WAIVER SERVICES; NOT OTHERWISE SPECIFIED (NOS) 12/10 [facility] SLEEP STUDY, UNATTENDED, SIMULTANEOUS RECORDING; MINIMUM OF HEART RATE, OXYGEN SATURATION, AND RESPIRATORY ANALYSIS (EG, BY AIRFLOW OR PERIPHERAL ARTERIAL TONE) 12/09 DoD TELE ASSESS & MGT SRV PROV QUAL NONPHYS HLTH CARE PRO TO EST PAT,PARENT,GUARD NOT ORIG REL ASSESS & MGT SRV PROV W/IN PREV 7 DAYS NOR LEAD ASSESS & MGT SRV/PX W/IN NXT 24 HR/SOON APT;5-10 MIN MED DIS 11/20 DoD WAIVER SERVICES; NOT OTHERWISE SPECIFIED (NOS) 09/11 DoD BRIEF COMM TECH-BASE SERV,E.G. VIRT CHK-IN,BY PHYS/OTH QUAL HCP,RPT E&M SERV,PROV TO EST PT,NOT ORIG FRM REL E/M SERV PROV W/IN PREV 7DAY NOR LEAD TO E/M SRV/PX W/IN NEXT 24HR/SOON YAMIL; 5-10 MIN DISC 09/01 DoD ADMINISTRATION OF PATIENT-FOCUSED HEALTH RISK ASSESSMENT INSTRUMENT (EG, HEALTH HAZARD APPRAISAL) WITH SCORING AND DOCUMENTATION, PER STANDARDIZED INSTRUMENT 08/31 [facility] CRUTCHES UNDERARM, OTHER THAN WOOD, ADJUSTABLE OR FIXED, PAIR, WITH PADS, TIPS AND HANDGRIPS 08/30 [facility] PATIENT EDUCATION, NOT OTHERWISE CLASSIFIED, NON-PHYSICIAN PROVIDER, GROUP, PER SESSION 08/26 DoD IMMUNIZATION ADM,INTRAMUSCULAR INJECTION OF SEVERE AC RESPIRATORY SYNDROME CORONAVIR 2 (SARSCOV-2) (CORONAVIR DIS [COVID-19]) VACC,MRNALNP,SPIKE PROT,PRESERVATIVE FREE,100 MCG/0.5ML DOSAG;SECOND DOSE 07/28 [facility] NUTRITION CLASSES, NON-PHYSICIAN PROVIDER, PER SESSION 07/24 [facility] OXYGEN UPTAKE, GAS ANALYSIS; REST, INDIRECT (SEPARATE PROCEDURE) 07/23 DoD WAIVER SERVICES; NOT OTHERWISE SPECIFIED (NOS) 07/15 DoD IMMUNIZATION ADM,INTRAMUSCULAR INJECTION OF SEVERE AC RESPIRATORY SYNDROME CORONAVIR 2 (SARSCOV-2) (CORONAVIR DIS [COVID-19]) VACCINE,MRNALNP,SPI KE PROT,PRESERVATIVE FREE,100 MCG/0.5ML DOSAG;1ST DOSE 06/30 [facility] NEEDLE, STERILE, ANY SIZE, EACH 06/18 [facility] PURE TONE AUDIOMETRY (THRESHOLD), AUTOMATED; AIR ONLY 06/15 DoD WAIVER SERVICES; NOT OTHERWISE SPECIFIED (NOS) 05/27 DoD TELE ASSESS & MGT SRV PROV QUAL NONPHYS HLTH CARE PRO TO EST PAT,PARENT,GUARD NOT ORIG REL ASSESS & MGT SRV PROV W/IN PREV 7 DAYS NOR LEAD ASSESS & MGT SRV/PX W/IN NXT 24 HR/SOON APT;5-10 MIN MED DIS 05/20 DoD THERAPEUTIC, PROPHYLACTIC, OR DIAGNOSTIC INJECTION (SPECIFY SUBSTANCE OR DRUG); SUBCUTANEOUS OR INTRAMUSCULAR 05/15 DoD TELE ASSESS & MGT SRV PROV QUAL NONPHYS HLTH CARE PRO TO EST PAT,PARENT,GUARD NOT ORIG REL ASSESS & MGT SRV PROV W/IN PREV 7 DAYS NOR LEAD ASSESS & MGT SRV/PX W/IN NXT 24 HR/SOON APT;5-10 MIN MED DIS 05/15 DoD Social History Combined list of available smoking, tobacco, and other social history from [facility] and [facility] facilities. Social History Type Response Date Comment Sour e This section is an empty social history section. DoD
--- OUTSIDE RECORDS SUMMARY | 2024-02-16 12:39 | XMS_ITS ---
Author Organization [facility] Address [address] [place] [address] Care Team Providers Care Necktie Stitcher Name Role Phone Ginger ROQUE, Sharon Sewell Primary Care Provider Un available Talisha Lau Unavailable [phone] REASON FOR VISIT r/s EXAMINATION SCORER 02/19 Encounters Encounter Location Date Provider Diagnosis [facility] [address] [place] [address] 02/15/2024 Talisha Sid Plan Of Treatment Next Appt Details Provider Name:Talisha Esqueda Sid , 04/16/2024 08:30:00 AM, [address] [facility], [place], [address], Progress Notes * Naseem ABERNATHY RDOB:[birth year] (28 yo M)Acc No.[id number]:02/15/2024 Patient:?Naseem ABERNATHY :1995???Age:28 Y???Sex:Male Address:[address] [place] [id number] * true * Date:? Generated for Printi ng/Famadonnag/eTransmitting on:?02/16/2024 12:38 PM EST
--- OUTSIDE RECORDS SUMMARY | 2024-02-16 12:39 | XMS_ITS | Patient Health Record ---
[facility] Address [address] [place] [address] Care Team Providers Care Funeral Home Attendant Name Role Phone Ginger ROQUE, Sharon Sewell Primary Care Provider Un available SidTalisha Unavailable [phone] Reason For Referral No Information Encounters Encounter Location Date Provider Diagnosis [facility] [address] [place] [address] 02/05/2024 Talishajessica Lau [facility] [address] [place] [address] 02/15/2024 Talishajessica Lau Plan Of Treatment Next Appt Details Provider Name:Talisha Lau , 04/16/2024 08:30:00 AM, [address] [facility], [place], [address], Insurance Providers Payer Name Payer Address Payer Phone Subscriber Number Group Number Insured Name Patient Relationship to Insured Coverage Start Date Coverage End Date [facility] [address] [place] [address] [phone] [id number] Naseem Aguilar Self - patient is the insured
--- OUTSIDE RECORDS SUMMARY | 2024-02-16 12:39 | XMS_ITS ---
Author Organization [facility] Address [address] [place] [address] Care Team Providers Care Field Merchandiser Name Role Phone Ginger ROQUE, Sharon Sewell Primary Care Provider Un available Talisha Lau Unavailable [phone] REASON FOR VISIT Reschedule Encounters Encounter Location Date Provider Diagnosis [facility] [address] [place] [address] 02/05/2024 Talisha Sid Plan Of Treatment Next Appt Details Provider Name:Talisha Lau , 04/16/2024 08:30:00 AM, [address] [facility], [place], [address], Progress Notes * Naseem MEHTA RDOB:[birth year] (28 yo M)Acc No.[id number]:02/05/2024 Patient:?Naseem MEHTA :1995???Age:28 Y???Sex:Male Address:[address] [place] [address] * true * Date:? Generated for Printi ng/Faxing/eTransmitting on:?02/16/2024 12:39 PM EST
--- OUTSIDE RECORDS SUMMARY | 2024-02-16 12:41 | XMS_ITS | Continuity of Care Document ---
Author Organization [facility] Address [address] [place] [address] Care Team Providers Care Seismograph Operator Name Role Phone ALISON DUFFY Primary Care Provider [phone] Assessment No assessment recorded. Plan of Treatment Reminders Order Date Submit Date Provider Last Modified By Organization Details Last Modified Time Details Appointments PT FOLLOW -UP 024 11:00AM Kt Burnett CHEMICAL ETCH OPERATOR Not available Not available Not available PT FOLLOW -UP 024 02:00PM Kt Burnett CHEMICAL ETCH OPERATOR Not available Not available Not available PT FOLLOW -UP 024 09:30AM Kt Burnett CHEMICAL ETCH OPERATOR Not available Not available Not available PT FOLLOW -UP 024 08:00AM Hui Carrillo DPT Not available Not available Not available PT FOLLOW -UP 024 01:30PM Hui Carrillo DPT Not available Not available Not available PT FOLLOW -UP 024 10:00AM Hui Carrillo DPT Not available Not available Not available PT FOLLOW -UP 025 02:30PM Hui Carrillo DPT Not available Not available Not available PT FOLLOW -UP 025 10:00AM Kt Burnett CHEMICAL ETCH OPERATOR Not available Not available Not available PT FOLLOW -UP 025 10:30AM Kt Burnett CHEMICAL ETCH OPERATOR Not available Not available Not available PT FOLLOW -UP 025 10:30AM Hui Carrillo DPT Not available Not available Not available PT FOLLOW -UP 025 11:00AM Kt Burnett CHEMICAL ETCH OPERATOR Not available Not available Not available PT FOLLOW -UP 025 11:00AM Shadina Lex, CHEMICAL ETCH OPERATOR Not available Not available Not available PT FOLLOW -UP 025 11:00AM Kt Burnett, CHEMICAL ETCH OPERATOR Not available Not available Not available PT FOLLOW -UP 025 10:30AM Hui Carrillo, DPT Not available Not available Not available PT FOLLOW -UP 025 10:30AM Kt Lex, CHEMICAL ETCH OPERATOR Not available Not available Not available PT FOLLOW -UP 025 10:30AM Kt Burnett, CHEMICAL ETCH OPERATOR Not available Not available Not available PT FOLLOW -UP 025 10:30AM Hui Carrillo, DPT Not available Not available Not available Lab None record ed. Referral None record ed. Procedures None record ed. Surgeries None record ed. Imaging None record ed. Medication Orders None record ed. Patient TargetsNo targets recorded. Patient InstructionsNo instructions recorded. Reason for Referral None Reported. Procedures Surgical History Date Name Laterality Status Provider Name and Address Organization Details Recorded Time 4 69274: Therapeutic Activities (1:1) active Kt Burnett PTA [address], [place], [address], [facility] 02/16/2024 08:58:47 4 43256 Therapeutic Exercise (1:1) active Kt Burnett PTA [address], [place], [address], [facility] 02/16/2024 08:58:47 4 92040: Hot or Cold Pack active Kt Burnett PTA [address], [place], [address], [facility] 02/16/2024 08:58:47 4 59701: Therapeutic Activities (1:1) completed Hui Carrillo DPT [address], [place], [address], [facility] 02/14/2024 13:56:28 4 49100 Therapeutic Exercise (1:1) completed Hui Carrillo DPT [address], [place], [address], [facility] 02/14/2024 13:56:25 4 53600: Hot or Cold Pack completed Hui Carrillo DPT [address], [place], [address], [facility] 02/14/2024 13:55:51 4 89368: Manual therapy completed Hui Carrillo DPT [address], [place], [address], [facility] 02/14/2024 13:56:32 4 46824 Therapeutic Exercise (1:1) completed Hui Carrillo DPT [address], [place], [address], [facility] 02/08/2024 07:49:04 4 07105: Low complexity PT Eval completed Hui Carrillo DPT [address], [place], [address], [facility] 02/08/2024 07:49:06 Imaging Results None recorded. Procedure Notes None recorded. Medical Equipment None Reported. Allergies No known drug allergies Medications Name Sig Start Date Stop Date Status Note LastModified by Organization Details LastModified Time amoxicillin 500 mg capsule TAKE 1 CAPSULE BY MOUTH TWICE A DAY FOR 10 DAYS 12/28 completed Not Available Not Available Not Available clonidine HCl 0.1 mg tablet 12/28 completed Not Available Not Available Not Available doxycycline hyclate 100 mg capsule TAKE 1 CAPSULE BY MOUTH TWICE A DAY FOR 7 DAYS 12/28 completed Not Available Not Available Not Available trazodone 50 mg tablet TAKE 1 TABLET BY MOUTH EVERY DAY AT BEDTIME NEEDED 12/28 completed Not Available Not Available Not Available cetirizine 10 mg tablet TAKE 1 TABLET BY MOUTH EVERY DAY NEEDED ALLERGY SYMPTOMS active Not Available Not Available No t Available ibuprofen 800 mg tablet TAKE 1 TABLET BY MOUTH EVERY 8 HOURS 12/28 completed Not Available Not Available Not Available meloxicam 15 mg tablet Take 1 tablet every day by oral route, for 30. 12/28 completed Not Available Not Available Not Available dextroamphe tamine-amph etamine 10 mg tablet 12/28 completed Not Available Not Available Not Available naproxen 250 mg tablet 12/28 completed Not Available Not Available Not Available penicillin V potassium 500 mg tablet TAKE 1 TABLET BY MOUTH THREE TIMES A DAY FOR 10 DAYS active Not Available Not Available No t Available hydroxyzine HCl 50 mg tablet TAKE 1 TABLET BY MOUTH EVERYDAY AT BEDTIME active Not Available Not Available No t Available acetaminoph en 300 mg-codeine 30 mg tablet Take 1 tablet every 4 hours by oral route for 10 days. 12/28 completed Not Available Not Available Not Available sulfamethox azole 800 mg-trimetho prim 160 mg tablet TAKE 1 TABLET BY MOUTH TWICE A DAY FOR 7 DAYS 12/28 completed Not Available Not Available Not Available ondansetron 8 mg disintegrat ing tablet TAKE 1 TABLET BY MOUTH EVERY 8 HOURS NEEDED FOR NAUSEA AND VOMITING FOR 5 DAYS active Not Available Not Available No t Available Hypodermic Lovell 23 gauge x 1 active Not Available Not Available N ot Available methocarbam ol 750 mg tablet 12/28 completed Not Available Not Available Not Available dextroamphe tamine-amph etamine ER 20 mg 24hr capsule,ext end release TAKE 1 CAPSULE BY MOUTH EVERY DAY active Not Available Not Available No t Available lorazepam 2 mg tablet TAKE ONE (1) TABLET BY MOUTH NEEDED DAILY active Not Available Not Available No t Available baclofen 10 mg tablet active Not Available Not Available No t Available benzonatate 100 mg capsule TAKE 2 CAPSULES BY MOUTH 3 TIMES A DAY NEEDED FOR COUGH FOR 7 DAYS 12/28 completed Not Available Not Available Not Available mirtazapine 30 mg tablet TAKE 1 TABLET BY MOUTH EVERYDAY AT BEDTIME active Not Available Not Available No t Available ferrous sulfate 325 mg (65 mg iron) tablet TAKE ONE TABLET BY MOUTH EVERY OTHER DAY 12/28 completed Not Available Not Available Not Available dextroamphe tamine-amph etamine 20 mg tablet TAKE 1 TABLET BY MOUTH TWICE A DAY 12/28 completed Not Available Not Available Not Available dextroamphe tamine-amph etamine 15 mg tablet TAKE 1 TABLET BY MOUTH EVERY DAY FOR ADHD active Not Available Not Available No t Available omeprazole 20 mg capsule,del ayed release active Not Available Not Available Not Available Adderall XR 10 mg capsule,ext ended release active Not Available Not Available Not Available mirtazapine 45 mg tablet TAKE 1 TABLET BY MOUTH EVERYDAY AT BEDTIME active Not Available Not Available No t Available diclofenac sodium 75 mg tablet,umesh yed release TAKE 1 TABLET BY MOUTH TWICE A DAY NEEDED FOR PAIN FOR 10 DAYS 12/28 completed Not Available Not Available Not Available hydroxyzine HCl 25 mg tablet TAKE 1 TABLET BY MOUTH TWICE A DAY NEEDED active Not Available Not Available No t Available mirtazapine 15 mg tablet TAKE 1 TABLET BY MOUTH EVERYDAY AT BEDTIME active Not Available Not Available No t Available lorazepam 1 mg tablet TAKE 1 TABLET BY MOUTH TWICE A DAY NEEDED 12/28 completed Not Available Not Available Not Available testosteron e cypionate 200 mg/mL intramuscul ar oil INJECT 1 ML INTRAMUSC ULARLY EVERY 2 WEEKS FOR 4 WEEKS active Not Available Not Available No t Available cefuroxime axetil 500 mg tablet TAKE 1 TABLET BY MOUTH EVERY 12 HOURS active Not Available Not Available No t Available albuterol sulfate HFA 90 mcg/actuati on aerosol inhaler INHALE 2 PUFFS EVERY 4 TO 6 HOURS NEEDED active Not Available Not Available No t Available morphine 15 mg immediate release tablet TAKE 1/2 TABLET BY MOUTH EVERY 6 HOURS NEEDED FOR PAIN FOR 3 DAYS 12/28 completed Not Available Not Available Not Available betamethaso ne dipropionat e 0.05 % topical ointment 1 APPL TOPICALLY 2 TIMES A DAY FOR 14 DAYS active Not Available Not Available No t Available ondansetron 4 mg disintegrat ing tablet TAKE 1 TABLET BY MOUTH THREE TIMES A DAY FOR 5 DAYS active Not Available Not Available No t Available fluticasone propionate 50 mcg/actuati on nasal spray,suspe nsion INSTILL 1 SPRAY IN EACH NOSTRIL TWICE DAILY active Not Available Not Available No t Available Clomid 50 mg tablet active Not Available Not Available No t Available dextroamphe tamine-amph etamine 5 mg tablet TAKE 1 TABLET BY MOUTH EVERY DAY active Not Available Not Available No t Available naproxen 500 mg tablet active Not Available Not Available Not Available amoxicillin 875 mg-potassiu m clavulanate 125 mg tablet TAKE 1 TABLET BY MOUTH EVERY 12 HOURS FOR 10 DAYS 12/28 completed Not Available Not Available Not Available dextroamphe tamine-amph etamine ER 15 mg 24hr capsule,ext end release TAKE 1 CAPSULE BY MOUTH EVERY DAY IN THE MORNING active Not Available Not Available No t Available escitalopra m 10 mg tablet TAKE ONE AND ONE HALF (1.5) TABLETS BY MOUTH EVERY MORNING active Not Available Not Available No t Available metaxalone 800 mg tablet TAKE 1 TABLET BY MOUTH EVERY DAY active Not Available Not Available No t Available ciprofloxac in 0.3 %-dexametha sone 0.1 % ear drops,suspe nsion INSTILL 4 DROPS INTO AFFECTED EAR(S) TWICE A DAY FOR 7 DAYS active Not Available Not Available No t Available bupropion HCl XL 150 mg 24 hr tablet, extended release 12/28 completed Not Available Not Available Not Available tadalafil 5 mg tablet TAKE ONE TABLET BY MOUTH EVERY DAY FOR 90 DAYS active Not Available Not Available No t Available tadalafil 20 mg tablet TAKE ONE TABLET BY MOUTH EVERY DAY NEEDED FOR SEXUAL ACTIVITY. ADMINISTE R APPROXIMA TELY 30 MINUTES BEFORE SEXUAL ACTIVITY. DO NOT USE MO active Not Available Not Available No t Available duloxetine 20 mg capsule,del ayed release TAKE 1 CAPSULE BY MOUTH EVERY DAY 12/28 completed Not Available Not Available Not Available BD Luer-Fuentes Syringe 1 mL active Not Available Not Available Not Available BD Regular Bevel Lovell 18 gauge x 1 1/2 active Not Available Not Available Not Available Eliquis 5 mg tablet TAKE 1 TABLET BY MOUTH TWICE A DAY active Not Available Not Available No t Available Eliquis DVT-PE Treatment 30-Day Starter 5 mg (74 tablets) in dose pack 2 TABLET BY MOUTH 2 TIMES A DAY,X7 DAYS,INST R:FOLLOWE D BY 1 TABLET BY MOUTH TWICE DAILY FOR 23 DAYS active Not Available Not Available No t Available Vitals Date Recorded Body height Body mass index (BMI) Body weight Provider Name and Address Organization Details Last Updated DateTime 02/09/2024 180.34 cm 31.4 kg/m2 261110.28 g Ally Hahn [place] - [facility] 02/09/2024 08:41:45 Social History None recorded. Functional Status None recorded. Mental Status None recorded. Family History Nothing Reported. Medical History No medical history recorded. Past Encounters Encounter ID Performer Location Encounter Start Date Encounter Closed Date Diagnosis/Indication Diagnosis SNOMED-CT Code Diagnosis ICD10 Code [id number] [facility] [address] [place] [address] 02/08/2024 07:37:28 02/08/2024 08:55:30 Instability of left patellofemoral joint 0225792535 [id number] M25.743 [id number] D[facility] [address] [place] [address] 02/09/2024 08:28:18 02/09/2024 08:54:42 Dislocation of patellofemoral joint 044303850 S83.005D Health Concerns Section Related Observation LastModified by Organization Detai ls LastModified Time None Recorded Concern Status LastModified by Organization Details LastModified Time None Recorded Payers Encounter Date Sequence Insurance Name Policy Number Policy Parks Covered Member ID Parks Member ID Guarantor Name 02/09/[address] [facility] [place] [place] - [place]IME () Naseem Mehta [id number] Naseem Mehta Notes Date Note Type Note Provider Name and Address Organization Details Recorded Time 02/09/2024 text/html I am seeing the patient today under the supervision of Dr. Sweeney who was available but who did not see the patient. Naseem returns in follow-up regarding the left knee. Patella dislocation. Has had limitations attending physical therapy due to . He is seeing improvements and has only low-level discomfort to the anterior knee but still some discomfort with squatting and kneeling. Past family, medical, social history and review of systems has been reviewed, updated and is located in the patient's chart. Examination: Trace effusion, full range of motion, no patellar apprehension or evidence of instability, negative ligamentous testing, calf supple Impression: Status post left knee patellar dislocation, doing well Plan: At this time work notes were provided to allow him to participate in physical therapy and self exercise. Light duty note provided for avoidance of squatting, kneeling or crawling x 30 days. Kamaljit Blankenship PA-C [address], [place], [address], [facility] - [place] [facility] 02/09/2024 08:54:38
--- OUTSIDE RECORDS SUMMARY | 2024-02-16 12:41 | XMS_ITS | Continuity of Care Document ---
Author Organization [facility] [address] [place] [address] Care Team Providers Care Molder Apprentice Name Role Phone ALISON DUFFY Primary Care Provider Assessment Encounter Date Assessment Date Assessment LastModified by Organization Details LastModified Time 02/14/2024 02/14/2024 A:Pt tolerating treatment well, able to complete full treatment without c/o increasing pain. Initiated strength program. Demonstrating good form throughout with minimal cuing required. Max difficulty with SLR, able to complete with low reps. Quick fatigue with strengthening of quad demonstrated with visible muscle quiver. P:Continue with POC, progress as tolerated. daisy Not available 02/14/2024 13:57:42 Plan of Treatment Reminders Order Date Submit Date Provider Last Modified By Organization Details Last Modified Time Details Appointments PT FOLLOW -UP 11:00AM Kt Burnett PHONE TRIAGE SPECIALIST Not available Not available Not available PT FOLLOW -UP 02:00PM Kt Burnett PHONE TRIAGE SPECIALIST Not available Not available Not available PT FOLLOW -UP 024 09:30AM Kt Burnett PHONE TRIAGE SPECIALIST Not available Not available Not available PT FOLLOW -UP 024 08:00AM Hui Carrillo DPT Not available Not available Not available PT FOLLOW -UP 024 01:30PM Hui Carrillo DPT Not available Not available Not available PT FOLLOW -UP 024 10:00AM Hui Carrillo DPT Not available Not available Not available PT FOLLOW -UP 02:30PM Hui Carrillo DPT Not available Not available Not available PT FOLLOW -UP 025 10:00AM Kt Burnett, PHONE TRIAGE SPECIALIST Not available Not available Not available PT FOLLOW -UP 025 10:30AM Biggruthrod Burnett, PHONE TRIAGE SPECIALIST Not available Not available Not available PT FOLLOW -UP 10:30AM Hui Gerardo, DPT Not available Not available Not available PT FOLLOW -UP 025 11:00AM Kt Burnett, PHONE TRIAGE SPECIALIST Not available Not available Not available PT FOLLOW -UP 025 11:00AM Biggruthrod Lex, PHONE TRIAGE SPECIALIST Not available Not available Not available PT FOLLOW -UP 025 11:00AM Kt Burnett, PHONE TRIAGE SPECIALIST Not available Not available Not available PT FOLLOW -UP 025 10:30AM Hui Carrillo, DPT Not available Not available Not available PT FOLLOW -UP 025 10:30AM Kt Burnett, PHONE TRIAGE SPECIALIST Not available Not available Not available PT FOLLOW -UP 025 10:30AM Biggruthrod Burnett, PHONE TRIAGE SPECIALIST Not available Not available Not available PT FOLLOW -UP 025 10:30AM Hui Gerardo, DPT Not available Not available Not available Lab None record ed. Referral None record ed. Procedures None record ed. Surgeries None record ed. Imaging None record ed. Medication Orders None record ed. Patient TargetsNo targets recorded. Patient InstructionsNo instructions recorded. Reason for Referral None Reported. Procedures Surgical History Date Name Laterality Status Provider Name and Address Organization Details Recorded Time 4 59172: Therapeutic Activities (1:1) active Kt Burnett, PHONE TRIAGE SPECIALIST [address], [place], [address], [facility] 02/16/2024 08:58:47 4 10840 Therapeutic Exercise (1:1) demond Burnett, PHONE TRIAGE SPECIALIST [address], [place], [address], [facility] 02/16/2024 08:58:47 4 27611: Hot or Cold Pack active Kt Burnett, PHONE TRIAGE SPECIALIST [address], [place], [address], [facility] 02/16/2024 08:58:47 4 21427: Therapeutic Activities (1:1) completed Hui Carrillo DPT [address], [place], [address], [facility] 02/14/2024 13:56:28 4 98218 Therapeutic Exercise (1:1) completed Hui Carrillo DPT [address], [place], [address], [facility] 02/14/2024 13:56:25 4 08936: Hot or Cold Pack completed Hui Carrillo DPT [address], [place], [address], [facility] 02/14/2024 13:55:51 4 75990: Manual therapy completed Hui Carrillo DPT [address], [place], [address], [facility] 02/14/2024 13:56:32 4 75457 Therapeutic Exercise (1:1) completed Hui Carrillo DPT [address], [place], [address], [facility] 02/08/2024 07:49:04 4 87325: Low complexity PT Eval completed Hui Carrillo DPT [address], [place], [address], [facility] 02/08/2024 07:49:06 Imaging Results None recorded. [...] Available Not Available No t Available Hypodermic Ault 23 gauge x 1 active Not Available [...] Not Available Not Available BD Regular Bevel Ault 18 gauge x 1 1/2 active Not [...] Available Not Available No t Available Vitals None Recorded Social History None recorded. Functional Status None recorded. Mental Status None recorded. Family History Nothing Reported. Medical History No medical history recorded. Past Encounters Encounter ID Performer Location Encounter Start Date Encounter Closed Date Diagnosis/Indication Diagnosis SNOMED-CT Code Diagnosis ICD10 Code [id number] JONNATHAN Lubin PT [address] [place] [address] 02/08/2024 07:37:28 02/08/2024 08:55:30 Instability of left patellofemoral joint [id number] M25.090 [id number] [facility] [address] [place] [address] 02/09/2024 08:28:18 02/09/2024 08:54:42 Dislocation of patellofemoral joint [id number] S83.005D [id number] JONNATHAN Lubin PT [address] [place] [address] 02/14/2024 12:27:30 02/14/2024 13:58:10 Instability of left patellofemoral joint [id number] 078818 M25.362 Health Concerns Section Related Observation LastModified by Organization Detai ls LastModified Time None Recorded Concern Status LastModified by Organization Details LastModified Time None Recorded Payers Encounter Date Sequence Insurance Name Policy Number Policy Parks Covered Member ID Parks Member ID Guarantor Name 02/14/2024 1 [facility] [place] - [place] () Naseem Mehta [id number] Naseem Mehta Notes Date Note Type Note Provider Name and Address Organization Details Recorded Time 02/14/2024 text/html Pt denies pain a t this time, reporting HEP has been going well, good compliance reported. Hui Carrillo DPT [address], [place], [address], [facility] [place] [facility] 02/14/2024 13:58:04
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
[2024-02-22 11:53] LABS: Testosterone, Total 614 ng/dL (250-1100)
== END 2024-02-16 12:36 | disposition home or self-care (01) ==
LOC: HO.HMGCLDS 12:35
PROVIDERS: PCP Internal Medicine; Visit Provider Urology
DX: E29.1 Testicular hypofunction (principal)
CPT/HCPCS: 36415; 84403

== ENCOUNTER 2024-03-20 13:33 | Outpatient (REF) | payer OTHER, SELFPAY ==
--- NOTE | ~2024-03-20 | US_ITS ---
EXAMINATION: US LOWER EXTREMITY VEINS LIMITED FOLLOW UP LEFT HISTORY: I82.402 - Acute embolism and thrombosis of unspecified deep veins of left... COMPARISON: There are no prior studies for comparison. TECHNIQUE: Duplex and color Doppler sonographic examination of the deep venous system of the left lower extremity was performed. FINDINGS: The common femoral, superficial femoral, and popliteal veins are patent demonstrating normal compressibility, spontaneous flow, and augmentation. There is a normal color and spectral Doppler waveform appearance of the visualized deep venous system above the knee. The posterior tibial and peroneal veins are patent. US/US venous duplex LE LT IMPRESSION: No evidence of acute DVT in the left lower extremity. Electronically signed by: Shamir Cherry MD 03/20/2024 02:15 PM REBECCA
--- OUTSIDE RECORDS SUMMARY | 2024-03-20 16:04 | XMS_ITS | Continuity of Care Document ---
Author Name [facility] Organization [facility] Care Team Providers Care Publishing Agent Name Role Phone [facility] Unavailable Unavailable Problems Combined list of problems [...] ORAL, MALLINKRT PHARM, 100 ea. BOTTLE Active [id number] 2023 60 Pharmac y Data Transac tion Service Facilit y CLOMID (clomiphene citrate), 50 MG, TABLET, ORAL, FANTA PHARMAC, 30 ea. BLIST PACK Cancele d [id number] : 2023 0 Pharmac y Data Transac tion Service Facilit y CLOMID (clomiphene citrate), 50 MG, TABLET, ORAL, FANTA PHARMAC, 30 ea. BLIST PACK Active [id number] 2023 14 Pharmac y Data Transac tion Service Facilit y CLOMID (clomiphene citrate), 50 MG, TABLET, ORAL, FANTA PHARMAC, 30 ea. BLIST PACK Active [id number] 2023 14 Pharmac y Data Transac tion Service Facilit y CLOMID (clomiphene citrate), 50 MG, TABLET, ORAL, FANTA PHARMAC, 30 ea. BLIST PACK Active [id number] 4 2023 14 Pharmac y Data Transac tion Service Facilit y CLOMID (clomiphene citrate), 50 MG, TABLET, ORAL, FANTA PHARMAC, 30 ea. BLIST PACK Active [id number] 4 2023 14 Pharmac y Data Transac tion Service Facilit y CLOMID (clomiphene citrate), 50 MG, TABLET, ORAL, FANTA PHARMAC, 30 ea. BLIST PACK Active [id number] 4 2023 14 Pharmac y Data Transac tion Service Facilit y DEX/AMPHET (ADDERALL XR EQ) 15 MG CP24 Take or use exactly as directed .May impair driving. This prescrip tion cannot be refilled .Federal law prohibit s transfer of prescrip tion. 02/18/2024 [id number] [address] [place] [address] DEX/AMPHET (ADDERALL XR EQ) 15 MG CP24 Take or use exactly as directed .May impair driving. This prescrip tion cannot be refilled .Federal law prohibit s transfer of prescrip tion. 12/13/2023 [id number] [address] [place] [address] Dextroamphe tamine Saccharate, Amphetamine Aspartate, Dextroamphe tamine Sulfate and Amphetamine Sulfate ([employer] 100 TABLET in 1 BOTTLE Active [id number] 06/14/19 2 4 2023 60 Pharmac y Data Transac tion Service Facilit y Dextroamphe tamine Saccharate, Amphetamine Aspartate, Dextroamphe tamine Sulfate and Amphetamine Sulfate ([employer] 100 TABLET in 1 BOTTLE Cancele d [id number] : 2023 0 Pharmac y Data Transac tion Service Facilit y DICLOFENAC SODIUM (DICLOFENAC SODIUM), 75 MG, TABLET DR, ORAL, PACK PHARMACEUT, 60 ea. BOTTLE Active [id number] 2023 20 Pharmac y Data Transac tion Service Facilit y DULOXETINE HCL (duloxetine HCl), 20 MG, CAPSULE DR, ORAL, AJANTA PHARMA L, 60 ea. BOTTLE Active [id number] 2023 30 Pharmac y Data Transac tion Service Facilit y DULOXETINE HCL (duloxetine HCl), 20 MG, CAPSULE DR, ORAL, AJANTA PHARMA L, 60 ea. BOTTLE Active [id number] 4 2023 30 Pharmac y Data Transac tion Service Facilit y DULOXETINE HCL (duloxetine HCl), 20 MG, CAPSULE DR, ORAL, AJANTA PHARMA L, 60 ea. BOTTLE Active [id number] 2023 30 Pharmac y Data Transac tion Service Facilit y LORAZEPAM (lorazepam) , 1 MG, TABLET, ORAL, AUROBINDO PHARM, 500 ea. BOTTLE Cancele d [id number] : 2023 0 Pharmac y Data Transac tion Service Facilit y LORAZEPAM (lorazepam) , 1 MG, TABLET, ORAL, AUROBINDO PHARM, 500 ea. BOTTLE Active [id number] 2023 60 Pharmac y Data Transac tion Service Facilit y LORAZEPAM (lorazepam) , 1 MG, TABLET, ORAL, LEADING PHARMA, 500 ea. BOTTLE Active [id number] 2023 60 Pharmac y Data Transac tion Service Facilit y LORAZEPAM (lorazepam) , 2 MG, TABLET, ORAL, AUROBINDO PHARM, 500 ea. BOTTLE Cancele d [id number] : 2022 0 Pharmac y Data Transac tion Service Facilit y LORAZEPAM (lorazepam) , 2 MG, TABLET, ORAL, TEVA [place], 100 ea. BOTTLE Active [id number] 3 2022 30 Pharmac y Data Transac tion Service Facilit y LORAZEPAM (lorazepam) , 2 MG, TABLET, ORAL, TEVA [place], 100 ea. BOTTLE Cancele d [id number] : 2023 0 Pharmac y Data Transac tion Service Facilit y Meloxicam (Meloxicam) , 15mg, Tablet, Oral, [facility] Pharmac, 1000 Ea. Bottle Cancele d [id number] : 2023 0 Pharmac y Data Transac tion Service Facilit y METHOCARBAM OL (methocarba mol), 750 MG, TABLET, ORAL, GRANULES PHARMA, 100 ea. BOTTLE Active [id number] 2023 42 Pharmac y Data Transac tion Service Facilit y MIRTAZAPINE (MIRTAZAPIN E), 30MG, TABLET, ORAL, CARACO PHARM, 30 ea. BOTTLE Cancele d [id number] : 2023 0 Pharmac y Data Transac tion Service Facilit y MIRTAZAPINE (MIRTAZAPIN E), 30MG, TABLET, ORAL, CARACO PHARM, 30 ea. BOTTLE Cancele d [id number] : 2023 0 Pharmac y Data Transac tion Service Facilit y MIRTAZAPINE (MIRTAZAPIN E), 45MG, TABLET, ORAL, CARACO PHARM, 30 ea. BOTTLE Active [id number] 2023 90 Pharmac y Data Transac tion Service Facilit y ONDANSETRON ODT (ONDANSETRO N), 8 MG, TAB RAPDIS, ORAL, AUROBINDO PHARM, 30 ea. BLIST PACK Active [id number] 2023 30 Pharmac y Data Transac tion Service Facilit y TRAZODONE HCL (trazodone HCl), 50 MG, TABLET, ORAL, TEVA [place], 100 ea. BOTTLE Cancele d [id number] : 2023 0 Pharmac y Data Transac tion Service Facilit y TRAZODONE HCL (trazodone HCl), 50 MG, TABLET, ORAL, TEVA [place], 100 ea. BOTTLE Active [id number] 2023 30 Pharmac y Data Transac tion Service Facilit y TRAZODONE HCL (trazodone HCl), 50 MG, TABLET, ORAL, TEVA [place], 100 ea. BOTTLE Active [id number] 2023 60 Pharmac y Data Transac tion Service Facilit y TRAZODONE HCL (trazodone HCl), 50 MG, TABLET, ORAL, TEVA [place], 100 ea. BOTTLE Active [id number] 2023 30 Pharmac y Data Transac tion Service Facilit y Allergies, Adverse Reactions, Alerts Combined list of allergies from Department of Defense and Veterans Affairs facilities. It does not include entries that were removed or entered in error. Substance Category Reaction Severity Reaction type Status Date Reported Comments Source No Known Allergies Drug allergy (disorder) active 12/28/2022 [employer] Immunizations Combined list of available immunizations from the Department of Defense and Veterans Affairs facilities. 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 Status Comments Source Influenza, injectable, quadrivalent, preservative free 0 2021 [id number] 150 [employer] (SKB) complet ed Influenza , injectabl e, quadrival ent, preservat maritza free DoD typhoid Vi capsular polysaccharid e vaccine 2 2021 [id number] 101 Sanofi Pasteur (PMC) complet ed typhoid Vi capsular polysacch aride vaccine DoD meningococcal polysaccharid e (groups A, C, Y and W-135) diphtheria toxoid conjugate vaccine (MCV4P) 2 2021 [id number] 114 Sanofi Pasteur (PMC) complet ed meningoco ccal polysacch aride (groups A, C, Y and W-135) diphtheri a toxoid conjugate vaccine (MCV4P) DoD Human Papillomaviru s 9-valent vaccine 2 2021 [id number] 165 Merck (MSD) complet ed Human Papilloma virus 9-valent vaccine DoD SARS-COV-2 (COVID-19) vaccine, mRNA, spike protein, LNP, preservative free, 100 mcg or 50 mcg dose 3 2021 [id number] 207 [employer]erra [employer] Inc. (MOD) complet ed SARS-COV- 2 (COVID-19 ) vaccine, mRNA, spike protein, LNP, preservat maritza free, 100 mcg or 50 mcg dose DoD Influenza, injectable, quadrivalent, preservative free 7 2020 [id number] 150 Vuzix (SKB) complet ed Influenza , injectabl e, quadrival ent, preservat maritza free DoD SARS-COV-2 (COVID-19) vaccine, mRNA, spike protein, LNP, preservative free, 100 mcg or 50 mcg dose 2 2020 [id number] 207 Research [employer]. (MOD) complet ed SARS-COV- 2 (COVID-19 ) vaccine, mRNA, spike protein, LNP, preservat maritza free, 100 mcg or 50 mcg dose DoD SARS-COV-2 (COVID-19) vaccine, mRNA, spike protein, LNP, preservative free, 100 mcg or 50 mcg dose 1 2020 [id number] 207 [employer]. (MOD) complet ed SARS-COV- 2 (COVID-19 ) vaccine, mRNA, spike protein, LNP, preservat maritza free, 100 mcg or 50 mcg dose DoD Influenza, injectable, quadrivalent, preservative free 0 2019 [id number] 150 Seqirus (SEQ) complet ed Influenza , injectabl e, quadrival ent, preservat maritza free DoD typhoid Vi capsular polysaccharid e vaccine 1 2018 [id number] 101 Sanofi Pasteur ([facility]) complet ed typhoid Vi capsular polysacch aride vaccine DoD Human Papillomaviru s 9-valent vaccine 1 2018 [id number] 165 Merck (MSD) complet ed Human Papilloma virus 9-valent vaccine DoD Influenza, injectable, quadrivalent, preservative free 0 2018 [id number] 150 Seqirus (SEQ) complet ed Influenza , injectabl e, quadrival ent, preservat maritza free DoD Influenza, injectable, quadrivalent, preservative free 0 2017 [id number] 150 Seqirus (SEQ) comple t ed Influenza , injectabl e, quadrival ent, preservat maritza free DoD Faroese Encephalitis vaccine for intramuscular administratio n 3 2017 [id number] 134 Valneva (ERICA) complet ed Faroese Encephali tis vaccine for intramusc ular administr ation DoD influenza, injectable, quadrivalent, contains preservative 3 2016 [id number] Nanda SmithKline (SKB) complet ed influenza , injectabl e, quadrival ent, contains preservat maritza DoD Faroese Encephalitis vaccine for intramuscular administratio n 2 2016 [id number] 134 Valneva (ERICA) complet ed Faroese Encephali tis vaccine for intramusc ular administr ation DoD hepatitis A and hepatitis B vaccine 3 2015 [id number] 104 SmithKline (SKB) complet ed hepatitis A and hepatitis B vaccine DoD Faroese Encephalitis vaccine for intramuscular administratio n 1 2015 [id number] 134 Intercell [employer]ical (INT) complet ed Faroese Encephali tis vaccine for intramusc ular administr ation DoD Influenza, seasonal, injectable, preservative free 0 2015 [id number] 140 Seqirus (SEQ) comple t ed Influenza , seasonal, injectabl e, preservat maritza free DoD measles, mumps and rubella virus vaccine 2 2015 [id number] 03 Merck (MSD) complet ed measles, mumps and rubella virus vaccine DoD hepatitis A and hepatitis B vaccine 1 2015 [id number] 104 SmithKline (SKB) complet ed hepatitis A and hepatitis B vaccine DoD measles, mumps and rubella virus vaccine 1 2015 [id number] 03 Merck (MSD) complet ed measles, mumps [...] diphtheria toxoid conjugate vaccine (MCV4P) 1 2015 [id number] 114 Sanofi Pasteur (PMC) complet ed meningoco [...] and type 7, live, oral 1 2015 [id number] 143 [facility] (BR) complet ed Adenoviru s, type 4 and [...] ADM Date DC Date Status Disposition Source [facility] [place] [address](Mitch matology Surgery, [facility]) OUTPATIENT [id number] NERY Smalls 06/29 Released w/o Limitations [facility] [place] [address](Iraida ermatolb og Surgery , [facility]) [place] [address]([facility]) OUTPATIENT [id number] Notes Entered by: LAURA WALKER 01 Jul 2015 1019 ------- ------- ------- ------- -- Strep Prophyl axis JACQUELINE WALKER 06/30 Released w/o Limitations [facility] [place] [address]([facility]) [facility] [place] [address](Hea ring Conservat ion, BMT) OUTPATIENT [id number] FLIP KWAN 07/02 Released w/o Limitations [facility] [place] [address](H earing Conserv ation, BMT) [place] [address](ATR 323 TRS,BMT) OUTPATIENT [id number] Notes Entered by: MARKY HASSAN 09 Jul 2015 1339 ------- ------- ------- ------- -- luke al lower leg pain MIGUEL PETERSON 07/08 Released with Work/Duty Limitations [facility] [place] [address](A TR 323 TRS,BMT ) [facility] [place] [address](ATR 323 TRS,BMT) OUTPATIENT [id number] Notes Entered by: MARKY HASSAN 10 Jul 2015 1020 ------- ------- ------- ------- -- TALHA SIMON PT 07/09 Released with Work/Duty Limitations [facility] [place] [address](A TR 323 TRS,BMT ) [facility] [place] [address](MAS Alpha) OUTPATIENT [id number] Notes Entered by: Casey WELCH 11 Aug 2015 1212 ------- ------- ------- ------- -- cold pack SUNDEEP WELCH 08/10 Released w/o Limitations [facility] [place] [address](M Alpha) [place] [place] [id number] PFB ASHU DEE 08/31 Released with Work/Duty Limitations [place]) [place] OUTPATIENT [id number] PFB ASHU DEE 09/30 Released w/o Limitations [place] [place] [facility] OUTPATIENT [id number] TENNILLE JOHANSEN 10/05 Released w/o Limitations [place] [place] [facility] Occupatio nal Health) OUTPATIENT [id number] [facility] EVAN LUDWIG 10/26 Released w/o Limitations [place] Occupat ional Health) [place] Hearing Conservat ion) OUTPATIENT [id number] audio +sts right WINTER WIN 10/26 Released w/o Limitations [place] Hearing Conserv ation) [place] Hearing Conservat ion) OUTPATIENT [id number] audio WINTER WIN 10/27 Released w/o Limitations [place] Hearing Conserv ation) [place] Readiness Center) OUTPATIENT [id number] OSS/JAP AN PASHTO, MART E 11/10 Released w/o Limitations [place] Readine ss Center) [place] OUTPATIENT [id number] f/u Bilater al Foot Pain TENNILLE CASSIDY 11/11 Released with Work/Duty Limitations [place]) [place] OUTPATIENT [id number] PFB ASHU DEE 11/30 Released w/o Limitations [place]) [facility](K a Medical In-Out Processin g) TELE CONSULT [id number] Notes Entered by: ASHU ACUÑA 03 Feb 2016 1205 ------- ------- ------- ------- -- Medical Inproce ssing ASHU ACUÑA 02/02 Other Not Elsewhere Classified [facility] ( Medical In-Out Process ing) [facility]) OUTPATIENT [id number] initial eric ho and plantar fasciti GEGE Storey 02/07 Released w/o Limitations [facility] ([facility]) [facility](P odiatry Clinic) OUTPATIENT [id number] Plantar fascial fibroma PTA Guevara 03/23 Released w/o Limitations [facility] (Podiat ry Clinic) [facility]( a [facility]) OUTPATIENT [id number] neck and back px7/10 constan t x3SID Navarro 03/24 Released w/o Limitations [facility] ([facility]) [facility]) TELE CONSULT [id number] Notes Entered by: DAYLIN CERVANTES 25 Mar 2016 1037 ------- ------- ------- ------- -- RAD results SANTINO MULLER 03/25 [facility] ([facility]) [facility]) OUTPATIENT [id number] stress managem ent/ref erral from JASON ROLON 03/28 Released w/o Limitations [facility] ([facility]) [facility]) OUTPATIENT [id number] RAD results f/u SID JOHNSON 03/30 Released w/o Limitations [facility] ([facility]) [facility]) TELE CONSULT [id number] Notes Entered by: GAGE MURCIA 05 Apr 2016 1323 ------- ------- ------- ------- -- PHAQ PRIORIT Y ITEM SANTINO MULLER 04/05 [facility] ( [facility]) [facility] OUTPATIENT [id number] routine /IMR TOBIN FRAGA 04/07 Released w/o Limitations [facility] ( Optomet ry Clinic) [facility]) OUTPATIENT [id number] f/u JASON GUERRA 04/11 Released w/o Limitations [facility] ([facility]) [facility]( a Hearing Conservat ion) OUTPATIENT [id number] Notes Entered by: WOLFGANG FERNANDEZ 15 Apr 2016 1412 ------- ------- ------- ------- -- RAGHAV PERSAUD AM 04/15 Released w/o Limitations [facility] ( Hearing Conserv ation) [facility]( a Physical Therapy Clinic) OUTPATIENT [id number] radha Velazquez TYLER B 04/18 Released with Work/Duty Limitations [facility] ( Physica l Therapy Clinic) [facility]) TELE CONSULT [id number] Notes Entered by: BANDAR VEGA 18 Apr 2016 1401 ------- ------- ------- ------- -- [facility] ZAK RANDALL M 04/18 [facility] ([facility]) [facility]) OUTPATIENT [id number] respito ry questio nnairregina CRESPO RANDALL M 04/19 Released w/o Limitations [facility] ([facility]) [facility]) OUTPATIENT [id number] Notes Entered by: DENISSE HERNANDEZ 05 May 2016 1300 ------- ------- ------- ------- -- MARKUS Gonzalez 05/05 Released w/o Limitations [facility] ([facility]) [facility] Physical Therapy Clinic) OUTPATIENT [id number] THI NESS 05/11 Released w/o Limitations [facility] ( Physica l Therapy Clinic) [facility]) OUTPATIENT [id number] GARRY MILLER 05/12 Released w/o Limitations [facility] ([facility]) [facility] Physical Therapy Clinic) OUTPATIENT [id number] THI NESS 05/16 Released w/o Limitations [facility] ( Physica l Therapy Clinic) [facility]) TELE CONSULT [id number] Notes Entered by: Cheryl GAO 20 May 2016 0732 ------- ------- ------- ------- -- vomit, cold sweats, has had little waterxl ess then 12 hours SANTINO MULLER 05/19 [facility] ([facility]) [facility]) OUTPATIENT [id number] maksim rice SANTINO Briseno 05/20 Released w/o Limitations [facility] ([facility]) [facility] Physical Therapy Clinic) OUTPATIENT [id number] THI NESSZOAlfonso 05/22 Released w/o Limitations [facility] ( Physic l Therapy Clinic) [facility]) OUTPATIENT [id number] Tidd resched ule/rebeca ulder px 08/13/ hand px 08/13 x almost 1 yr SANTINO MULLER B 05/25 Released w/o Limitations [facility] ([facility]) [facility] Physical Therapy Clinic) OUTPATIENT [id number] THI NESS 05/29 Released w/o Limitations [facility]) OUTPATIENT [id number] Notes Entered by: GUALBERTO HUBER 30 May 2016 0833 ------- ------- ------- ------- -- [facility] ALEX 05/29 Released w/o Limitations [facility] ([facility]) [facility] Physical Therapy Clinic) OUTPATIENT [id number] BILLY DON 06/01 Released w/o Limitations [facility] ([facility]) [facility]) TELE CONSULT [id number] Notes Entered by: Alfonso SHANE 28 Jul 2016 1043 ------- ------- ------- ------- -- STD Ivis lopez ([facility]) KAYLIE EVANS 07/28 Referred for Appointment [facility] ([facility]) [facility]) OUTPATIENT [id number] Notes Entered by: DENISSE HERNANDEZ 28 Jul 2016 1334 ------- ------- ------- ------- -- LIZ Watson 07/28 Released w/o Limitations [facility] ([facility]) [facility]) TELE CONSULT [id number] SANTINO MULLER 08/05 [facility] ([facility]) [facility]) OUTPATIENT [id number] f/u back SID JOHNSON 08/08 Released with Work/Duty Limitations [facility] ([facility]) [facility]) OUTPATIENT [id number] ER f/u for Edema SID JOHNSON 09/12 Released w/o Limitations [facility] ([facility]) [facility]) TELE CONSULT [id number] Notes Entered by: Joe WILSON 03 Oct 2016 0909 ------- ------- ------- ------- -- rash on chest,r ed, bumpy(l ook like acne) x2days SANTINO MULLER 10/03 [facility] ([facility]) [facility]) TELE CONSULT [id number] Notes Entered by: NICOLAS HOOK 11 Oct 2016 0817 ------- ------- ------- ------- -- Early STI F/U JUD CURRY 10/10 [facility] ([facility]) [facility]) TELE CONSULT [id number] Notes Entered by: SID JOHNSON 26 Oct 2016 0847 ------- ------- ------- ------- -- F/u apt for MRI review REBEL GONZALEZ 10/25 Referred for Appointment [facility] ([facility]) [facility]) OUTPATIENT [id number] MRI review SID JOHNSON Stevo 11/04 Released with Work/Duty Limitations [facility] ([facility]) [facility]) OUTPATIENT [id number] Notes Entered by: Emma BURNETT TTE 10 Nov 2016 1328 ------- ------- ------- ------- -- KAMLESH Gu 11/10 Released w/o Limitations [facility] ([facility]) [facility] A Team) OUTPATIENT [id number] rash on back, red, raised, no improve ment over past 2wks DEAN GALLAGHER 12/19 Released w/o Limitations [facility] ([facility] A Team) [facility]) OUTPATIENT [id number] Ref to chiropr actBRADLY Razo 01/31 Released w/o Limitations [facility] ([facility]) [facility]) TELE CONSULT [id number] Notes Entered by: Joe WILSON 09 Mar 2017 1506 ------- ------- ------- ------- -- Profile ADEWUSI, ANIBALILBRY OLOLADE 03/09 Other Not Elsewhere Classified [facility] ([facility]) [facility]) TELE CONSULT [id number] Notes Entered by: Joe WILSON 23 Mar 2017 1315 ------- ------- ------- ------- -- SYMP- sore throat, headach es,body px,chil ls,DARINEL Lynn 03/23 Advice Assessment [facility] ([facility]) [facility]( a Hearing Conservat ion) OUTPATIENT [id number] Notes Entered by: TAMIKO WILSON 27 Mar 2017 1111 ------- ------- ------- ------- -- AUDIOGR AM TAMIKO WILSON 03/27 Released w/o Limitations [facility] ( Hearing [facility]) [facility](K a Hearing Conservat ion) TELE CONSULT [id number] Notes Entered by: TAMIKO WILSON 27 Mar 2017 1112 ------- ------- ------- ------- -- OHA LABS TAMIKO WILSON 03/27 Referred for Appointment [facility] ( Hearing [facility]) [facility]) TELE CONSULT [id number] Notes Entered by: JR ORTIZ 27 Mar 2017 1119 ------- ------- ------- ------- -- STI - Confide donalde Check JUD CURRY 03/27 Other Not Elsewhere Classified [facility] ([facility]) [facility]) OUTPATIENT [id number] Notes Entered by: Emma BURNETT 27 Mar 2017 1208 ------- ------- ------- ------- -- Sent by Public Health BRADLY FRENCH 03/27 Released w/o Limitations [facility] ([facility]) [facility] Therapy [facility]) OUTPATIENT [id number] Kevin velasco, right side BILLY DON 03/28 [facility]ased with Work/Duty Limitations [facility] [facility]) [facility] Conservat ion) OUTPATIENT [id number] Notes Entered by: Regina ORTEGA 11 Apr 2017 1558 ------- ------- ------- ------- -- Audiogr am BHAVNA ORTEGA 04/11 Released w/o Limitations [facility] ( Hearing [facility]) [facility] OUTPATIENT [id number] f/u hearing non flyer RICKY GEE Shivani 04/14 Released w/o Limitations [facility] Physical Therapy Clinic) OUTPATIENT [id number] JOCELINE CERVANTES 05/14 Released w/o Limitations [facility] ( Physica [facility] Therapy [facility]) [facility] Chiroprac tic Clinic) OUTPATIENT [id number] Lumbago with sciatic a, right side RIAN SIMMS 05/16 Released w/o Limitations [facility] ([facility] Chiropr actic Clinic) [facility]( udiology Clinic) OUTPATIENT [id number] Unspeci fied hearing loss, left ear JOCELINE AKERS 05/17 Released w/o Limitations [facility] (Audiol ogy Clinic) [facility] Physical Therapy Clinic) OUTPATIENT [id number] JOCELINE CERVANTES 05/21 Released w/o Limitations [facility] ( [facility] Therapy [facility]) [facility]) OUTPATIENT [id number] Notes Entered by: Joe WILSON 22 May 2017 1138 ------- ------- ------- ------- -- *cough, loss appetit e,sweat s,chill s*[phone] or [phone]* BRADLY FRENCH 05/22 Released w/o Limitations [facility] ([facility] BG) [facility] Physical Therapy Clinic) OUTPATIENT [id number] JOCELINE CERVANTES 05/28 Released w/o Limitations [facility] ( Physica [facility] Therapy [facility]) [facility]) OUTPATIENT [id number] SAHIL BLANCO 05/31 Released w/o Limitations [facility] ([facility]) [facility] Chiroprac tic Clinic) OUTPATIENT [id number] RIAN SIMMS 06/01 Released w/o Limitations [facility] ([facility] Chiropr actic [facility]) [facility]) OUTPATIENT [id number] OHA f/u RANDALL CRESPO 06/05 Released w/o Limitations [facility] ([facility]) [facility] Chiroprac tic Clinic) OUTPATIENT [id number] RIAN SIMMS 06/13 Released w/o Limitations [facility] ([facility] Chiromt actic [facility]) [facility]) OUTPATIENT [id number] Notes Entered by: LUI SCHWARZ 16 Jun 2017 1433 ------- ------- ------- ------- -- Annual A-P JIN SCHWARZ 06/16 Released w/o Limitations [facility] ([facility]) [facility]) OUTPATIENT [id number] Notes Entered by: GUALBERTO HUBER 19 Jun 2017 0845 ------- ------- ------- ------- -- TRI SERVICE PHA / *LTB BRADLY FRENCH 06/18 Released w/o Limitations [facility] ([facility]) [facility] Chiroprac tic Clinic) OUTPATIENT [id number] RIAN SIMMS 07/12 Released w/o Limitations [facility] ([facility] Chiropr actic [facility]) [facility]) OUTPATIENT [id number] back pain and foot pain BRADLY FRENCH 08/02 Released w/o Limitations [facility] ([facility]) [facility] Chiropra tic Clinic) OUTPATIENT [id number] RIAN SIMMS 08/15 Released w/o Limitations [facility] ([facility] Chiropr actic [facility]) [facility] Chiropra tic Clinic) OUTPATIENT [id number] RIAN SIMMS 08/31 Released w/o Limitations [facility] ([facility] Chiropr actic Clinic) [facility] A Team) OUTPATIENT [id number] Notes Entered by: Emma BURNETT 10 Jan 2018 0725 ------- ------- ------- ------- -- JUNIOR [place] 01/09 Released with Work/Duty Limitations [facility] ([facility] A Team) [facility] D Team) TELE CONSULT [id number] Notes Entered by: RA URBAN PERKINS 10 Jan 2018 0816 ------- ------- ------- ------- -- Tanvire GERARDO Andrews 01/09 Other Not Elsewhere Classified [facility] ([facility] D Team) [facility] BGAB) OUTPATIENT [id number] injured my back (again) was told to make an appoint ment by ANNIE GoreEL Casey 02/02 Released with Work/Duty Limitations [facility] ([facility] BGAB) [facility] BGAB) TELE CONSULT [id number] Notes Entered by: BRIE MIN 23 Feb 2018 1355 ------- ------- ------- ------- -- PRO:Ext landy/ [phone]/ JOCELINE VELASQUEZ 02/23 Other Not Elsewhere Classified [facility] ([facility]) [place] [facility] OUTPATIENT [id number] Low back pain ERICK BRENNAN 03/08 [place]ased w/o Limitations [place]) OUTPATIENT [id number] 1 of 4 CATALINA MCDERMOTT 03/16 Released with Work/Duty Limitations [place] [place] [facility] Chiroprac tic Clinic) OUTPATIENT [id number] RIAN SIMMS 03/19 Released w/o Limitations [facility] ([facility] Chiropr actic Clinic) [facility]) TELE CONSULT [id number] Notes Entered by: ARELY SAUNDERS 28 Mar 2018 1224 ------- ------- ------- ------- -- pro;upd ate,/48 [id number] JOCELINE ESPINO 03/28 Other Not Elsewhere Classified [facility] ([facility]) [facility](P hysical Therapy Clinic) OUTPATIENT [id number] 2/ IMELDA CISNEROS 03/30 Released with Work/Duty Limitations [facility] ([facility] Therapy [facility]) [facility]) OUTPATIENT [id number] skin issue, acne, initial appt BRADLY FRENCH 04/02 Released w/o Limitations [facility] ([facility]) [facility]) TELE CONSULT [id number] Notes Entered by: JARRETT CALIX 06 Apr 2018 1526 ------- ------- ------- ------- -- OH Labs DREAD CALIX 04/06 Referred for Appointment [facility] ([facility]) [facility](P hysical Therapy Clinic) OUTPATIENT [id number] 4/ ASUNCION POST 04/11 Released w/o Limitations [facility] (Physic [facility] Therapy [facility]) [facility]( a Hearing Conservat ion) OUTPATIENT [id number] Notes Entered by: JARRETT CALIX 13 Apr 2018 0822 ------- ------- ------- ------- -- Audiogr am DREAD CALIX 04/12 Released w/o Limitations [facility] ( Hearing Conserv ation) [facility](P hysical Therapy Clinic) OUTPATIENT [id number] 4/ CATALINA MCDERMOTT 04/20 Released with Work/Duty Limitations [facility] (Phys[facility] Therapy [facility]) [facility](P hysical Therapy Clinic) OUTPATIENT [id number] LBP F/u ERICK BRENNAN 05/01 [place]ased [place]/o Limitations [place] [facility] [place] [facility] OUTPATIENT [id number] 1/ MATTHEW LLAMAS 05/09 [place]ased [place] Limitations [place] [facility] OUTPATIENT [id number] ANISADheeraj BROTHERS SAHILROXANNE WOOD 05/10 [place]ased [place]/o Limitations [place] [facility]) [place] Chiroprac tic Clinic) OUTPATIENT [id number] RIAN SIMMS 06/01 Released w/o Limitations [facility] ([facility] Chiropr actic Clinic) [place] [facility]) OUTPATIENT [id number] Notes Entered by: PETR THAPA 12 Jun 2018 1426 ------- ------- ------- ------- -- TRI SERVICE KAUSHAL/ASHU PRICE 06/12 Released w/o Limitations [facility] ([facility]) [place] [facility]) OUTPATIENT [id number] ERICK BRENNAN 06/27 Released w/o Limitations [facility] ([facility] ) [place] [facility] OUTPATIENT [id number] MATTHEW Raya 06/27 [place]ased [place]/o Limitations [place] [facility] [place] OUTPATIENT [id number] MATTHEW Raya 07/08 [place]ased [place]/o Limitations [place] [facility] [place] OUTPATIENT [id number] f/u LBP ERICK BRENNAN 07/11 [place]ased w/o Limitations [place] [facility] [place] D Team) OUTPATIENT [id number] Bilat foot pain x2 weeks JOSE CARTY Lb 08/21 Released w/o Limitations [facility] ([facility] D Team) [facility](P odiatry Clinic) OUTPATIENT [id number] Plantar fascial fibroma tosis GURJIT HARVEY KRYSTIN 09/19 Released w/o Limitations [facility] (Podiat ry Clinic) [facility]) OUTPATIENT [id number] concent ration issues CLAYTON WESTBROOK 10/08 Released w/o Limitations [facility] ([facility]) [facility](P odiatry Clinic) OUTPATIENT [id number] F/U L toenail removal MARQUES HARVEYDARIUS MCCLELLAND 10/08 Released w/o Limitations [facility] (Podiat ry Clinic) [facility] A Team) OUTPATIENT [id number] Medicat ion inquire s per VIRGIL Romano 10/22 Released w/o Limitations [facility] ([facility] A Team) [facility]) TELE CONSULT [id number] Notes Entered by: NAHEED ADAME 08 Nov 2018 1313 ------- ------- ------- ------- -- MED CONSULT ATION /O CANDELARIO SANTIAGO 11/08 Released to Self Care [facility] ([facility]) [facility] A Team) OUTPATIENT [id number] MEDICAT ION EVAN GARRISON 11/13 Released w/o Limitations [facility] ([facility] A Team) [facility] BGAB) OUTPATIENT [id number] injured lower back LINDSAY CRESPO 01/15 Released w/o Limitations [facility] ([facility]) [facility] D Team) OUTPATIENT [id number] Notes Entered by: CAROLINA OSWALD 23 Jan 2019 0702 ------- ------- ------- ------- -- YEYO HUITRON 01/22 Released with Work/Duty Limitations [facility] ([facility] D Team) [facility]) OUTPATIENT [id number] Notes Entered by: ANDREAS RASCON 23 Jan 2019 0812 ------- ------- ------- ------- -- Travel Med BERENICE Barnett 01/22 Released w/o Limitations [facility] ([facility]) [facility]) OUTPATIENT [id number] Notes Entered by: ANDREAS RASCON 30 Jan 2019 1317 ------- ------- ------- ------- -- Travel Med KAYLIE Young 01/30 Released w/o Limitations [facility] ([facility]) [facility] BGAB) OUTPATIENT [id number] Pain in Joshi areas RENNY DIANA 02/12 Released w/o Limitations [facility] ([facility] BGAB) [facility] D Team) TELE CONSULT [id number] Notes Entered by: MARK CURIEL 08 Mar 2019 0938 ------- ------- ------- ------- -- SYM/ MONKEY BITE AND COLD SYMPTOM S/ LIBORIO SIMMONS 03/08 Referred- Emergency Department [facility] ([facility] D Team) [facility]) OUTPATIENT [id number] Audiogr am 465B PASTOR AGUILAR 04/25 Released w/o Limitations [facility] ( [facility]) [facility]) OUTPATIENT [id number] Audiogr am follow up ED LOPEZ 05/19 Released w/o Limitations [facility] ( Hearing [facility]) [facility] D Team) TELE CONSULT [id number] Notes Entered by: ARTHUR HSU 31 May 2019 1603 ------- ------- ------- ------- -- SYM: FEVER, BODY ACHES/( 015) [phone] 5/DARINEL LEROY 05/30 Advice Assessment [facility] ([facility] D Team) [place] [facility] Med PCMH Team 1) OUTPATIENT [id number] fever x5 day runny nose KELECHI PRADO 06/06 Released w/o Limitations [facility] ([facility] Med [facility] Team 1) [facility]( hysical Therapy Clinic) TELE CONSULT [id number] Notes Entered by: YAZAN WALLACE 08 Jun 2019 0931 ------- ------- ------- ------- -- PUI check in RIKY WALLACE 06/07 [facility] (Physic al Therapy Clinic) [facility]) OUTPATIENT [id number] ULICES SAMUEL 06/23 Released w/o Limitations [facility] ([facility]) [place] [facility] D Team) TELE CONSULT [id number] Notes Entered by: MARK CURIEL 25 Jul 2019 0918 ------- ------- ------- ------- -- f/u for pneumon ia/ /SHYANNE Galicia 07/24 Other Not Elsewhere Classified [facility] ([facility] D Team) [facility]) OUTPATIENT [id number] Notes Entered by: KWAME GUILLEN 09 Aug 2019 0919 ------- ------- ------- ------- -- TRI SERVICE PHA/RENNY HEARD 08/08 Released w/o Limitations [facility] ([facility]) [facility] D Team) OUTPATIENT [id number] ear pain, congest ion, and feveris h RENNY DIANA 08/18 Released w/o Limitations [facility] ([facility] D Team) [facility] D Team) OUTPATIENT [id number] PT NEED WAVIER FOR PCS, DISCUSS W/PCM RENNY DIANA 08/25 Released w/o Limitations [facility] ([facility] D Team) [facility](O psurge2 COVID19 Hotline) TELE CONSULT [id number] Notes Entered by: CRISTOFER CASSIDY [facility] 24 Oct 2019 0714 ------- ------- ------- ------- -- COVID CARE LINE KEREN CASSIDY 10/22 Referred for Appointment [facility] (Opsurg e2 COVID19 Hotline ) [facility] D Team) OUTPATIENT [id number] fatigue , nausea, diarrhe a, nasal dischar ge x2 days LINDSAY CRESPO W 10/23 Sick at Home/Quarter s [facility] ([facility] D Team) [facility] A Team) OUTPATIENT [id number] cough x5 days with chills and congest ion VINCE CORTES 10/27 Sick at Home/Quarter s [facility] ([facility] A Team) [facility] D Team) TELE CONSULT [id number] Notes Entered by: CHERYL PATEL 30 Oct 2019 1330 ------- ------- ------- ------- -- SYM: AGGIE MORELAND/R DARIONULTS/ 634 0900/LIBORIO BUNCH 10/29 Other Not Elsewhere Classified [facility] ([facility] D Team) [facility] D Team) OUTPATIENT [id number] Notes Entered by: Dheeraj CASTILLO 18 Dec 2019 0715 ------- ------- ------- ------- -- [facility] KOREY REYESIGNACIO BOWDEN Cristy LEONARD 12/16 Released w/o Limitations [place] [facility] D Team) [facility]) OUTPATIENT [id number] Notes Entered by: JEREMIAH BOBO 24 Dec 2019 1216 ------- ------- ------- ------- -- OS Melba merino- Sonali clark ABS, UYEN Simeon 12/23 Released w/o Limitations [facility]) [facility] Team A[facility] TELE CONSULT [id number] Notes Entered by: DEREK BANEGAS 15 May 2020 1223 ------- ------- ------- ------- -- STI testing CHRISTINE COHN [facility] Active Duty Team A) OUTPATIENT [id number] Notes Entered by: Emma COHN 15 May 2020 1243 ------- ------- ------- ------- -- Walk is possibl e STI treatme nt RITA ANDREWS 05/15 Released w/o Limitations [facility] Active Duty Team A) [facility] Active Duty Team A) OUTPATIENT [id number] neck px // [phone] RITA ANDREWS 05/18 Released w/o Limitations [facility] Active Duty Team A) [facility] Active Duty Team A) TELE CONSULT [id number] Notes Entered by: MICHELLE RAY I 20 May 2020 1042 ------- ------- ------- ------- -- initial dry needlin g GAGARIN, ANGELIQUE QUAKER 05/20 [facility] Wom Active Duty Team A) [facility] FP Behaviora l Hlt Opt) OUTPATIENT [id number] Anxiety /Depres FRED Antunez Dheeraj 05/27 Released w/o Limitations [facility] FP Behavio ral Hlt Opt) [facility] Wom Active Duty Team A) OUTPATIENT [id number] 2 !1300 TDN RITA ANDREWS 05/30 Released w/o Limitations [facility] Wom Active Duty Team A) [facility] Hearing Conservat ion) OUTPATIENT [id number] ohe hearing MARTIN-LINDSAY CO, JAYNE 06/14 Released w/o Limitations [facility] Hearing Conserv ation) [facility] Immunizat ion) OUTPATIENT [id number] COVID 19 VAX MODERNA 1 JESI GOOD 06/30 Released w/o Limitations [facility] Immuniz ation) [facility]) OUTPATIENT [id number] Cliff [email or web address] Ortega 07/15 Released w/o Limitations [facility](L Nutriti on Care) [facility] Wellness [facility]) OUTPATIENT [id number] BOD/MET LINDSAY RUVALCABA 07/23 Released w/o Limitations [facility]) [facility] Well[facility]) OUTPATIENT [id number] JAM ASKEW 07/24 Released w/o Limitations [facility] [place]) [facility] Wom Active Duty Team A) TELE CONSULT [id number] Notes Entered by: RUPA CALDWELL 24 Jul 2020 1018 ------- ------- ------- ------- -- Referra l for sleep study REBEL COX 07/24 [facility] Wom Active Duty Team A) [facility] Immunizat ion) OUTPATIENT [id number] COVID-1 9 VACC MODERNA DOSE 2 ENRIQUE RAMÍREZ 07/28 Released w/o Limitations [facility](N Immuniz ation) [facility] Wellness [facility]) OUTPATIENT [id number] [facility] J[facility] TITUS 08/26 Released w/o Limitations [facility]) [facility] Wo Active Duty Team A) TELE CONSULT [id number] Notes Entered by: DEREK BANEGAS 31 Aug 2020 0741 ------- ------- ------- ------- -- radiolo gy request - pls see today REBEL COX 08/31 [facility] Wo Active Duty Team A) [facility] OP Medicine Clinic) OUTPATIENT [id number] Notes Entered by: CLIFTON BHAKTA 31 Aug 2020 0908 ------- ------- ------- ------- -- a CLIFTON BHAKTA 08/31 Released w/o Limitations [facility] Base OP Medicin e Clinic) [facility] Wo Active Duty Team A) OUTPATIENT [id number] VIRTUAL DANYA HICKS 08/31 Released w/o Limitations [facility] Wom Active Duty Team A) [facility](RS Wo Active Duty Team A) TELE CONSULT [id number] Notes Entered by: MICHELLE RAY I 11 Sep 2020 1040 ------- ------- ------- ------- -- ER f/u for partial ly torn realtri ngs REBEL COX 09/11 [facility] Wo Active Duty Team A) [facility] Sleep Clinic) OUTPATIENT [id number] SPEC [id number] YISSEL BALLESTEROS 09/11 Released w/o Limitations [facility]) [facility] Wo Active Duty Team A) OUTPATIENT [id number] Right hamstri ng LARRY Reza 09/11 Released with Work/Duty Limitations [facility] Wo Active Duty Team A) [facility] Wo Active Duty Team A) TELE CONSULT [id number] Notes Entered by: MICHELLE RAY I 20 Nov 2020 0844 ------- ------- ------- ------- -- Adderal l RX refill request FRED FLORES 11/20 [facility](RS Wo Active Duty Team A) [facility] Sleep Study Lab) OUTPATIENT [id number] HST PICKUP JIN DALY 12/09 Released w/o Limitations [facility] Sleep Study Lab) [facility] Sleep Clinic) OUTPATIENT [id number] HST DROPOFF /RESULT S F2F YISSEL BALLESTEROS 12/10 Released w/o Limitations [facility]) [facility] Emergency [facility]) OUTPATIENT [id number] DONTA FRITZ 12/22 Released w/o Limitations [facility] Emergen cy Room) [facility] Wo Active Duty Team A) TELE CONSULT [id number] Notes Entered by: DEREK BANEGAS 29 Dec 2020 1340 ------- ------- ------- ------- -- profile request ed DANYA AKERS Emma 12/29 [facility] Wo Active Duty Team A) [facility] Wo Active Duty Team A) TELE CONSULT [id number] Notes Entered by: ZOLTAN OROZCO 30 Dec 2020 1230 ------- ------- ------- ------- -- Shaving waiver FRED Sparks 12/30 Other Not Elsewhere Classified [facility] Wo Active Duty Team A) [facility]) OUTPATIENT [id number] NAOMY HOUSE 02/07 Released w/o Limitations [facility] Emergen cy Room) [facility](Opsur ge Multi-Spe cialty Cl) TELE CONSULT [id number] Notes Entered by: TAZ GODOY 08 Feb 2021 1130 ------- ------- ------- ------- -- COVID Test Walk-In TAZ GODOY 02/08 Other Not Elsewhere Classified [facility](Ops urge Multi-S pecialt y Cl) [facility] Wo Active Duty Team A) TELE CONSULT [id number] Notes Entered by: MICHELLE RAY I 10 Feb 2021 1512 ------- ------- ------- ------- -- Quarter s verific ation needed SANDIP MOYA 02/10 Other Not Elsewhere Classified [facility] Wo Active Duty Team A) [facility] Op Med Clinic) OUTPATIENT [id number] OHE, 177A Acft, CBN [id number] JULIANO TERAN O 03/09 Released w/o Limitations [facility] Op Med Clinic) [facility](N Hearing Conservat ion Cln) OUTPATIENT [id number] 177A AUDIOGR AM BELÉN COREY 04/02 Released w/o Limitations [facility](N Hearing Conserv ation Cln) [facility] Wo Active Duty Team A) TELE CONSULT [id number] Notes Entered by: ZOLTAN OROZCO 20 May 2021 0903 ------- ------- ------- ------- -- SICK sx/Rx needed PAPITO VASQUEZ 05/20 Advice Assessment [facility] Wo Active Duty Team A) [facility] Active Duty Team A) TELE CONSULT [id number] Notes Entered by: MAGY BAH 31 May 2021 0803 ------- ------- ------- ------- -- on going SICK sx / Cov + PAPITO VASQUEZ 05/31 Sick at Home/Quarter s [facility] Wo Active Duty Team A) [facility] Family Med Non-AD Team E) TELE CONSULT [id number] Notes Entered by: Dheeraj KANG 09 Jun 2021 1145 ------- ------- ------- ------- -- STI Check PAPITO VASQUEZ 06/09 Referred for Appointment [facility] Family Med Non-AD Team E) [facility] Wo Active Duty Team A) OUTPATIENT [id number] STI with abd pain and flank pain JIN ISBELL 06/09 Released w/o Limitations [facility] Wo Active Duty Team A) [facility] Wo Active Duty Team D) TELE CONSULT [id number] Notes Entered by: AMISHA ISBELL 23 Jun 2021 1341 ------- ------- ------- ------- -- Lab results JIN ISBELL 06/23 [facility] Active Duty Team D) [facility]) OUTPATIENT [id number] Elevati on of levels of liver transam inase levels/ [id number] GEGE AVILA 07/12 Released w/o Limitations [facility] Gastroe [facility]olo [facility]) [facility]) TELE CONSULT [id number] Notes Entered by: SHEREE العراقي 22 Jul 2021 1732 ------- ------- ------- ------- -- labs GEGE AVILA 07/22 [facility]) [facility] Active Duty Team A) TELE CONSULT [id number] Notes Entered by: JOCELINE HARP 03 Aug 2021 1331 ------- ------- ------- ------- -- Deploym JIN Galeana 08/03 [facility] Active Duty Team A) [facility]) OUTPATIENT [id number] A PHA + [phone] [id number] LYDIA CHAVEZ 08/03 Released w/o Limitations [facility]) [facility]) OUTPATIENT [id number] Notes Entered by: Cheryl HOLLEY 10 Aug 2021 1017 ------- ------- ------- ------- -- RADHA CUELLO 08/10 Released w/o Limitations [facility]) [facility] Gastroent erology) TELE CONSULT [id number] Notes Entered by: SHEREE العراقي 27 Aug 2021 1509 ------- ------- ------- ------- -- labs GEGE AVILA 08/27 [facility] Gastroe nterolo gy) [facility]) OUTPATIENT [id number] [facility]) [facility] Wo Active Duty Team A) TELE CONSULT [id number] Notes Entered by: Shivani KANG 20 Sep 2021 0713 ------- ------- ------- ------- -- Adverse Reactio n to Antibio tic REBEL COX 09/20 [facility]) OUTPATIENT [id number] [facility] 09/20 [facility]) [facility] Wo Active Duty Team A) TELE CONSULT [id number] Notes Entered by: MAGY BAH 28 Sep 2021 1153 ------- ------- ------- ------- -- Chiro PAPITO Bond 09/28 Other Not Elsewhere Classified [facility] Chiroprac tic Clinic) OUTPATIENT [id number] Low back pain, unspeci fied JARRET LERNER 10/04 [facility]ased w/o Limitations [facility] Chiropr actic Clinic) [facility] A) TELE CONSULT [id number] Notes Entered by: HENRRY RICO P 06 Oct 2021 1534 ------- ------- ------- ------- -- Working Waiver ANUM Rucker 10/06 Other Not Elsewhere Classified [facility] Active Duty Team A) [facility] Emergency Room) OUTPATIENT [id number] BETSY TAMIKO 10/08 Released w/o Limitations [facility] Emergen cy Room) [facility] Chiroprac tic Clinic) OUTPATIENT [id number] Low R back JARRET LERNER 10/11 [facility]ased w/o Limitations [facility] Chiropr actic Clinic) [facility] Wo Active Duty Team A) TELE CONSULT [id number] Notes Entered by: Shivani KANG 15 Oct 2021 1236 ------- ------- ------- ------- -- Extend KELLI Ruelas 10/15 Referred for Appointment [facility] Active Duty Team A) [facility] Chiroprac tic Clinic) OUTPATIENT [id number] Low R back JARRET LERNER 10/18 [facility]ased w/o Limitations [facility] Chiropr actic Clinic) [facility] Active Duty Team A) OUTPATIENT [id number] ER f/u w/ back pain, still in pain JIN ISBELL 10/18 Released w/o Limitations [facility] Wo Active Duty Team A) [facility] Wo Active Duty Team D) TELE CONSULT [id number] Notes Entered by: AMISHA ISBELL E 20 Oct 2021 0821 ------- ------- ------- ------- -- Low back FRED FLORES 10/20 Advice Assessment [facility] Active Duty Team D) [facility] Chiroprac tic Clinic) OUTPATIENT [id number] Low R back JARRET LERNER 11/11 Released w/o Limitations [facility] Chiropr actic Clinic) [facility] Chiroprac tic Clinic) OUTPATIENT [id number] Low R back JARRET LERNER Huang 11/25 Released w/o Limitations [facility] Chiropr actic Clinic) [facility] Chiroprac tic Clinic) OUTPATIENT [id number] Low R back JARRET LERNER Huang 12/02 Released w/o Limitations [facility] Chiropr actic Clinic) [facility] A) TELE CONSULT [id number] Notes Entered by: HENRRY RICO 02 Dec 2021 1701 ------- ------- ------- ------- -- Confide PAPITO Rahman 12/02 Other Not Elsewhere Classified [facility] Wo Active Duty Team A) TELE CONSULT [id number] Notes Entered by: Casey RODRIGUEZ 14 Dec 2021 0915 ------- ------- ------- ------- -- Waiver extensi on & modific KELLI Blas 12/14 Other Not Elsewhere Classified [facility] Wo Active Duty Team A) [facility] Chiroprac tic Clinic) OUTPATIENT [id number] Low R back JARRET LERNER 12/20 Released w/o Limitations [facility] Chiropr actic Clinic) [facility] Wo Active Duty Team A) TELE CONSULT [id number] Notes Entered by: Casey RODRIGUEZ 20 Dec 2021 0924 ------- ------- ------- ------- -- JOCE mobilit y waiver confirm ation PAPITO Chambers 12/20 Advice Assessment [facility] Wo Active Duty Team A) [facility] Wo Active Duty Team A) TELE CONSULT [id number] Notes Entered by: Shivani KANG 04 Jan 2022 0925 ------- ------- ------- ------- -- BERENICE Smalls 01/04 Other Not Elsewhere Classified [facility] Wo Active Duty Team A) [facility] Physical Therapy) OUTPATIENT [id number] Low back pain, unspeci fied ARMAAN ORTEGA 01/11 Released w/o Limitations [facility] Physica l Therapy ) [facility] Physical [facility]) OUTPATIENT [id number] 7 back pain ANGE ELLIS 01/19 Released w/o Limitations [facility] Phys[facility] Therapy ) [facility] Wo Active Duty Team D) TELE CONSULT [id number] JIN ISBELL 01/19 [facility] Wo Active Duty Team D) [facility] Chiroprac tic Clinic) OUTPATIENT [id number] low back JARRET LERNER 01/25 Released w/o Limitations [facility] Chiropr actic Clinic) [facility] Wo Active Duty Team A) TELE CONSULT [id number] Notes Entered by: Casey RODRIGUEZ 31 Jan 2022 1353 ------- ------- ------- ------- -- STD check LIZ COFFEY 01/31 [facility] Wo Active Duty Team A) [facility]) OUTPATIENT [id number] Other interve rtebral disc degener ation, lumbar region DANIEL, GUILLEIGORY VLADIMIROV ICH 02/01 Released w/o Limitations [facility]) [facility] Physical Therapy) OUTPATIENT [id number] back pain ELISE CANADA 02/02 Released w/o Limitations [facility] Physica l Therapy ) [facility]) OUTPATIENT [id number] 3 RIGHT L4-L5 TFESI CHERNYAK, GRIGORY VLADIMIROV ICH 02/02 Released w/o Limitations [facility]) [facility] Wo Active Duty Team A) TELE CONSULT [id number] Notes Entered by: MAGY BAH 07 Feb 2022 1034 ------- ------- ------- ------- -- Talk to PCM about 365 ANUM Espinosa P 02/07 Other Not Elsewhere Classified [facility] Wo Active Duty Team A) [facility] Physical Therapy) OUTPATIENT [id number] back ELLIS, ANGE T 02/08 Released w/o Limitations [facility] Physica [facility] Therapy ) [facility]) OUTPATIENT [id number] 7 back pain ARMAAN ORTEGA J 02/09 Released w/o Limitations [facility] Phys[facility] ) [facility] D[facility]) OUTPATIENT [id number] Cosmeti c eval acne scarrin gRox [phone] RUCHI HOLLEY 02/09 Released w/o Limitations [facility] Derm[facility]) [facility] Physical Therapy) OUTPATIENT [id number] back pain JACLYN MARTIN A 02/11 Released w/o Limitations [facility] Phys[facility] Therapy ) [facility]) TELE CONSULT [id number] Notes Entered by: Casey HOLLEY 11 Feb 2022 1314 ------- ------- ------- ------- -- biopsy result RADHA GAYTAN 02/11 [facility] D[facility]) [facility] Clinic) OUTPATIENT [id number] FOUNDAT IONS BERNARDA CHOWDHURY 02/16 Released w/o Limitations [facility] IP Clinic) [facility] Physical Therapy) OUTPATIENT [id number] back pain JACLYN MARTIN A 02/16 Released w/o Limitations [facility] Physica [facility] Therapy ) [facility]) OUTPATIENT [id number] low back ANGE ELLIS 03/02 Released w/o Limitations [facility] Physica [facility] Therapy ) [facility]) OUTPATIENT [id number] Laser resurfa cing paid. [phone] RUCHI HOLLEY 03/03 Released w/o Limitations [facility] Dermato [facility]y) [facility](n [facility]) OUTPATIENT [id number] Notes Entered by: Cheryl NUNO 08 Mar 2022 0820 ------- ------- ------- ------- -- CCAC ZAKIA DONAHUE 03/08 Released w/o Limitations [facility]) [facility] Physical Therapy) OUTPATIENT [id number] back pain ARMAAN ORTEGA 03/09 Released w/o Limitations [facility] Phys[facility] ) [facility]) OUTPATIENT [id number] back and neck ANGE ELLIS 03/17 Released w/o Limitations [facility] Phys[facility] Therapy ) [facility] Physical Therapy) OUTPATIENT [id number] back and neck ANGE ELLIS 03/24 Released w/o Limitations [facility] Physica [facility] Therapy ) [facility] Physical Therapy) OUTPATIENT [id number] LBP ELISE CANADA 03/28 Released w/o Limitations [facility] Physica [facility] Therapy ) [facility] Conserv[facility]) OUTPATIENT [id number] Audiogr am, 177A ARMANDOADIA 04/04 Released w/o Limitations [facility] Conserv ation Cln) [facility](RS Physical Therapy) OUTPATIENT [id number] 1 Back ARMAAN ORTEGA 04/05 Released w/o Limitations [facility] Physica [facility] Therapy ) [facility] Base Op Med Clinic) OUTPATIENT [id number] 3 OHE, 226B, CBN [id number] EGJULIANO WELCH O 04/08 Released w/o Limitations [facility] Base Op Med Clinic) [facility] Wo Active Duty Team A) OUTPATIENT [id number] Neck, shoulde r, knee px MOMMAERTS, LIZ L 04/12 Released w/o Limitations [facility] 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 Procedure Procedure Type Code Date Perfomer Comments Sourc e Physical Therapy: ___ Se ion Segments, 15 Minutes Each Physical Therapy: ___ Session Segments, 15 Minutes Each 05437 05/22 THI NESS Non-Physician Phone Call To Patient/Provider Brief (5-10min) Non-Physician Phone Call To Patient/Provider Brief (5-10min) 97517 05/20 KAYLIE EVANS Modalities Heat Hot Packs Modalities Heat Hot Packs 87884 05/17 THI NESS Physical Therapy: ___ Se ion Segments, 15 Minutes Each Physical Therapy: ___ Session Segments, 15 Minutes Each 67887 05/17 THI NESS Modalities Heat Hot Packs Modalities Heat Hot Packs 23665 05/12 THI NESS Physical Therapy: ___ Se ion Segments, 15 Minutes Each Physical Therapy: ___ Session Segments, 15 Minutes Each 76977 05/12 THI NESS Phys Therapy Education Self Care Training - Per 15 Minutes Phys Therapy Education Self Care Training - Per 15 Minutes 38648 04/18 BILLY DON A isted Exercises For ROM Assisted Exercises For ROM 61329 04/18 BILLY DON Physical Therapy Service Evaluation Physical Therapy Service Evaluation 67794 04/18 BILLY DON Patient education, not otherwise cla ified, non-physician provider, group, per se ion 04/17 MADHAVI ORTIZ Threshold Audiogram (Pure Tone) Automated Threshold Audiogram (Pure Tone) Automated [id number] 04/17 MADHAVI ORTIZ Non-Physician Phone Call To Pt/Provider Intermed (11-20 min) Non-Physician Phone Call To Pt/Provider Intermed (11-20 min) 73320 04/14 KAYLIE EVANS Health And Behavior Intervention, Each Additional 15 Minutes Individual Health And Behavior Intervention, Each Additional 15 Minutes Individual 63676 04/11 JASON GUERRA [facility] Ophthalmological New Patient Start Comprehensive Care Ophthalmological New Patient Start Comprehensive Care 27376 04/07 TOBIN FRAGA [facility] Determination Of Refractive State Determination Of Refractive State 28461 04/07 TOBIN FRAGA [facility] Health And Behav A e mt Each 15 Min Initial A e ment Health And Behav Assessmt Each 15 Min Initial Assessment 02515 04/05 JASON GUERRA [facility] Non-Physician Phone Call To Pt/Provider Intermed (11-20 min) Non-Physician Phone Call To Pt/Provider Intermed (11-20 min) 40655 03/30 KAYLIE EVANS [facility] Audiogram (Screening) Audiogram (Screening) 85439 10/28 WINTER WIN [facility] Physical Therapy: ___ Se ion Segments, 15 Minutes Each Physical Therapy: ___ Session Segments, 15 Minutes Each 57013 07/13 MIGUEL PETERSON [facility] Modalities Cryotherapy Cold Packs Modalities Cryotherapy Cold Packs 93071 07/13 MIGUEL PETERSON [facility] Physical Therapy Gait Training Physical Therapy Gait Training 52192 07/13 MIGUEL PETERSON [facility] Physical Medicine - Group Physical Therapy Se ion Physical Medicine - Group Physical Therapy Session 82044 07/09 TALHA FRANKLIN [facility] Threshold Audiogram (Pure Tone) Automated Threshold Audiogram (Pure Tone) Automated [id number] 07/02 FLIP KWAN [facility] Patient education, not otherwise cla ified, non-physician provider, group, per se ion JAM CARLTON [facility] Brief communication technology-based service, e.g. virtual check-in, by a physician or other qualified health care velma euceda who can report evaluation and management services, provided to an established patient, not originating from a related E/M service provided within the previous 7 days nor leading to an E/M service or procedure within the next 24 hours or soonest available appointment; 5-10 minutes of medical discu ion CLIFTON BHAKTA [facility] Preventive Medicine Administration Of Health Risk Questionnaire Patient-Focused Preventive Medicine Administration Of Health Risk Questionnaire Patient-Focused 84202 CLIFTON BHAKTA [facility] Waiver services; not otherwise specified (NOS) YISSEL BALLESTEROS [facility] Spirometry Spirometry 25496 LYN LEWIS [facility] Non-Physician Phone Call To Patient/Provider Brief (5-10min) Non-Physician Phone Call To Patient/Provider Brief (5-10min) 25788 LARRY ELAINE [facility] Sleep Study Unattended Record: Heart Rate, O2 Saturation, Respiratory Analysis Sleep Study Unattended Record: Heart Rate, O2 Saturation, Respiratory Analysis 48561 ANGELES DALY [facility] Hospital outpatient clinic visit specimen collection for severe acute respiratory syndrome coronavirus 2 (sars-cov-2) (coronavirus disease [covid-19]), any specimen source TAZ GODOY [facility] Threshold Audiogram (Pure Tone) Automated Threshold Audiogram (Pure Tone) Automated [id number] MADHAVBELÉN [facility] Non-Physician Phone Call To Pt/Provider Intermed (11-20 min) Non-Physician Phone Call To Pt/Provider Intermed (11-20 min) 03232 PAPITO VASQUEZ [facility] Psychometric Neuropsych Testing Battery Admin By Computer Psychometric Neuropsych Testing Battery Admin By Computer 82590 LINDA RUDOLPH [facility] Physician Supervised Injection Intramuscular Antibiotic Physician Supervised Injection Intramuscular Antibiotic 88421 DRAKE DOWNING Verified pt's 6 rights. Pt [...] in waiting room 10 mins after injection. [facility] Chiropractic Manip Treatmt (CMT) Spinal Three To Four Region Chiropractic Manip Treatmt (CMT) Spinal Three To Four Region 48290 JARRET LERNER [facility] Mobilization Soft Ti ue Mobilization Soft Tissue 44007 JARRET LERNER 8 minutes [facility] Modalities Electrical Stimulation Unattended Modalities Electrical Stimulation Unattended 96817 JARRET LERNER Modalities Heat Hot Packs Modalities Heat Hot Packs 43616 JARRET LERNER [facility] Internet Med Svc Qual Nonphy Healthcare Prof Up To 7 Days Estab Pt 11-20 Min Internet Med Svc Qual Nonphy Healthcare Prof Up To 7 Days Estab Pt 11-20 Min 28497 PAPITO VASQUEZ [facility] Physical Therapy Service Evaluation Low Complexity Physical Therapy Service Evaluation Low Complexity 68955 ARMAAN ORTEGA Osteopathic Manip Treatment (OMT) 1-2 Body Regions Involved Osteopathic Manip Treatment (OMT) 1-2 Body Regions Involved 93132 ARMAAN ORTEGA Physical Therapy: ___ Se ion Segments, 15 Minutes Each Physical Therapy: ___ Session Segments, 15 Minutes Each 67918 ARMAAN ORTEGA Exercise equipment ARMAAN ORTEGA Corticosteroid Injection Interlaminar Approach Lumbar Corticosteroid Injection Interlaminar Approach Lumbar 88750 RANDY SANCHEZ [facility] Corticosteroid Inj Interlaminar Lumbar L4 - L5 Corticosteroid Inj Interlaminar Lumbar L4 - L5 83089 RUTHANNJIHAN GUILLEDONTAE SHELL [facility] Physical Therapy Service Re-Evaluation Physical Therapy Service Re-Evaluation 19980 ARMAAN ORTEGA [facility] Shaving Of Lesion Ankles .6 to 1cm Shaving Of Lesion Ankles .6 to 1cm 10234 RUCHI HOLLEY After explaining the nature of [...] Sterile dressing applied and wound care discussed. [facility] Destruction Of Benign Lesion By Any Method 1 - 14 Lesions Destruction Of Benign Lesion By Any Method 1 - 14 Lesions 71634 RUCHI HOLLEY After verbally discussing reason for [...] ointment application to healing crusts if desired. [facility] Psychotherapy Group Interactive Psychotherapy Group Interactive 24325 BERNARDA CHOWDHURY in [facility] Education [facility] [phone]. SM was not assessed individually for this [...] and Online Resources and Back Facts handouts. [facility] Physical Therapy Functional Ability Training Each 15 Minutes Physical Therapy Functional Ability Training Each 15 Minutes 11342 ARMAAN ORTEGA [facility] Facial Dermabrasion Segmental, Face Facial Dermabrasion Segmental, Face 97155 RUCHI HOLLEY [facility] Nerve Block Trigeminal Nerve Block Trigeminal 48411 RUCHI HOLLEY [facility] Musculoskeletal Needle Insertion Without Injection 1 Or 2 Muscles Musculoskeletal Needle Insertion Without Injection 1 Or 2 Muscles 75256 ARMAAN ORTEGA [facility] Mobilization Soft Ti ue Mobilization Soft Tissue 27171 SHANNON ARMAAN Huang [facility] Psychometric Emotional / Behavioral A e ment Psychometric Emotional / Behavioral Assessment 70402 RA GREEN [facility] Clinical Social Work Individual Outpatient Counseling 60 Minutes Clinical Social Work Individual Outpatient Counseling 60 Minutes 33392 RA GREEN [facility] Psychometric Emotional / Behavioral A e ment Psychometric Emotional / Behavioral Assessment 28024 10/21 [facility] Health And Behavior Intervention, Each Additional 15 Minutes Individual Health And Behavior Intervention, Each Additional 15 Minutes Individual 79529 10/21 [facility] Health And Behav A e mt Each 15 Min Initial A e ment Health And Behav Assessmt Each 15 Min Initial Assessment 26077 10/21 [facility] Physical Therapy Service Re-Evaluation Physical Therapy Service Re-Evaluation 94287 07/12 ERICK BRENNAN [facility] Traction Equipment Traction Equipment 81883 07/08 LLAMASMATTHEW DONOVAN [facility] Traction Equipment Traction Equipment 20709 06/27 MATTHEW LLAMAS [facility] Osteopathic Manip Treatment (OMT) 1-2 Body Regions Involved Osteopathic Manip Treatment (OMT) 1-2 Body Regions Involved 07054 06/27 ERICK BRENNAN [facility] Physical Therapy: ___ Se ion Segments, 15 Minutes Each Physical Therapy: ___ Session Segments, 15 Minutes Each 65304 06/27 ERICK BRENNAN [facility] Physical Therapy Service Evaluation Moderate Complexity Physical Therapy Service Evaluation Moderate Complexity 49502 06/27 ERICK BRENNAN [facility] Preventive Medicine Administration Of Health Risk Questionnaire Patient-Focused Preventive Medicine Administration Of Health Risk Questionnaire Patient-Focused 73539 06/12 ASHU SEPULVEDA [facility] Chiropractic Manip Treatmt (CMT) Spinal Three To Four Region Chiropractic Manip Treatmt (CMT) Spinal Three To Four Region 11600 06/01 RIAN SIMMS [facility] Preventive Medicine Administration Of Health Risk Questionnaire Patient-Focused Preventive Medicine Administration Of Health Risk Questionnaire Patient-Focused 85692 05/29 ANGELES SCHWARZ Internet Med Svc Qual Nonphys Healthcare Prof Up To 7 Days Estab Patient Internet Med Svc Qual Nonphys Healthcare Prof Up To 7 Days Estab Patient 24544 05/29 ANGELES SCHWARZ Audiogram (Screening) Audiogram (Screening) 44999 05/14 SAHIL BROTHERS [facility] Physical Therapy: ___ Se ion Segments, 15 Minutes Each Physical Therapy: ___ Session Segments, 15 Minutes Each 94977 05/09 MATTHEW LLAMAS Physical Therapy: ___ Se ion Segments, 15 Minutes Each Physical Therapy: ___ Session Segments, 15 Minutes Each 36268 05/01 ERICK BRENNAN Physical Therapy Service Re-Evaluation Physical Therapy Service Re-Evaluation 84897 05/01 ERICK BRENNAN Modalities Heat Hot Packs Modalities Heat Hot Packs 67372 04/24 CATALINA MCDERMOTT Physical Therapy: ___ Se ion Segments, 15 Minutes Each Physical Therapy: ___ Session Segments, 15 Minutes Each 49465 04/24 CATALINA MCDERMOTT Threshold Audiogram (Pure Tone) Automated Threshold Audiogram (Pure Tone) Automated [id number] 04/19 DREAD CALIX Patient education, not otherwise cla ified, non-physician provider, individual, per se ion 04/19 DREAD CALIX Modalities Heat Hot Packs Modalities Heat Hot Packs [id number] 04/11 ASUNCION POST [facility] Physical Therapy: ___ Se ion Segments, 15 Minutes Each Physical Therapy: ___ Session Segments, 15 Minutes Each [id number] 04/11 [facility]UNC[facility] POST Physical Therapy: ___ Se ion Segments, 15 Minutes Each Physical Therapy: ___ Session Segments, 15 Minutes Each [id number] 04/03 CATALINA MCDERMOTT Non-Physician Phone Call To Patient/Provider Brief (5-10min) Non-Physician Phone Call To Patient/Provider Brief (5-10min) [id number] 03/28 JOCELINE ESPINO [facility] Physical Therapy: ___ Se ion Segments, 15 Minutes Each Physical Therapy: ___ Session Segments, 15 Minutes Each [id number] 03/19 CATALINA MCDERMOTT Chiropractic Manip Treatmt (CMT) [facility] Chiropractic Manip Treatmt (CMT) Spinal [facility] 34520 03/19 RIAN SIMMS Physical Therapy: ___ Se ion Segments, 15 Minutes Each Physical Therapy: ___ Session Segments, 15 Minutes Each [id number] 03/09 ERICK BRENNAN Physical Therapy Service Evaluation Moderate Complexity Physical Therapy Service Evaluation Moderate Complexity 42102 03/09 ERICK BRENNAN Non-Physician Phone Call To Patient/Provider Brief (5-10min) Non-Physician Phone Call To Patient/Provider Brief (5-10min) 86038 02/27 JOCELINE ESPINO Preventive Medicine Services: Counseling/Educatio n On Self-Care Preventive Medicine Services: Counseling/Educat ion On Self-Care [id number] 01/10 JUNIOR GRAY [facility] Non-Physician Phone Call To Patient/Provider Brief (5-10min) Non-Physician Phone Call To Patient/Provider Brief (5-10min) 28520 01/09 GERARDO LYLE Chiropractic Manip Treatmt (CMT) [facility] Chiropractic Manip Treatmt (CMT) [facility] 36224 08/31 RIAN SIMMS [facility] Chiropractic Manip Treatmt (CMT) Spinal [facility] Chiropractic Manip Treatmt (CMT) [facility] 93359 08/15 RIAN SIMMS Chiropractic Manip Treatmt (CMT) [facility] Chiropractic Manip Treatmt (CMT) [facility] 03482 07/13 RIAN SIMMS Preventive Medicine Administration Of Health Risk Questionnaire Patient-Focused Preventive Medicine Administration Of Health Risk Questionnaire Patient-Focused 14979 06/16 ANGELES SCHWARZ Internet Med Svc Qual Nonphys Healthcare Prof Up To 7 Days Estab Patient Internet Med Svc Qual Nonphys Healthcare Prof Up To 7 Days Estab Patient [id number] 06/16 ANGELES SCHWARZ [facility] Chiropractic Manip Treatmt (CMT) Spinal [facility] Chiropractic Manip Treatmt (CMT) Spinal [facility] 92075 06/13 RIAN SIMMS Chiropractic Manip Treatmt (CMT) Spinal One To Two Regions Chiropractic Manip Treatmt (CMT) Spinal One [facility] Regions 73698 06/01 RIAN SIMMS Internet Med Svc Qual Nonphys Healthcare Prof Up To 7 Days Estab Patient Internet Med Svc Qual Nonphys Healthcare Prof Up To 7 Days Estab Patient [id number] 05/30 BRADLY FRENCH [facility] Modalities Heat Hot Packs Modalities Heat Hot Packs 22365 05/28 JOCELINE CERVANTES Physical Therapy: ___ Se ion Segments, 15 Minutes Each Physical Therapy: ___ Session Segments, 15 Minutes Each 49614 05/21 JOCELINE CERVANTES Modalities Heat Hot Packs Modalities Heat Hot Packs 40502 05/21 JOCELINE CERVANTES Acoustic Reflex Testing Acoustic Reflex Testing 15641 05/18 JOCELINE AKERS Tympanometry Tympanometry 61002 05/18 JOCELINE AKERS Comprehensive Audiometry Comprehensive Audiometry 50177 05/18 JOCELINE AKERS Chiropractic Manip Treatmt (CMT) [facility] Chiropractic Manip Treatmt (CMT) [facility]inal [facility] 93465 05/16 RIAN SIMMS Modalities Heat Hot Packs Modalities Heat Hot Packs 42450 05/14 JOCELINE CERVANTES Physical Therapy: ___ Se ion Segments, 15 Minutes Each Physical Therapy: ___ Session Segments, 15 Minutes Each 71703 05/14 JOCELINE CERVANTES Threshold Audiogram (Pure Tone) Automated Threshold Audiogram (Pure Tone) Automated [id number] 04/11 BHAVNA ORTEGA Patient education, not otherwise cla ified, non-physician provider, group, per se ion 04/11 BHAVNA ORTEGA Physical Therapy Service Evaluation Low Complexity Physical Therapy Service Evaluation Low Complexity 84233 03/28 BILLY DON A isted Exercises For ROM Assisted Exercises For ROM 55814 03/28 BILLY DON [facility] Threshold Audiogram (Pure Tone) Automated Threshold Audiogram (Pure Tone) Automated [id number] 03/27 TAMIKO WILSON [facility] Patient education, not otherwise cla ified, non-physician provider, group, per se ion 03/27 TAMIKO WILSON [facility] Non-Physician Phone Call To Pt/Provider Intermed (11-20 min) Non-Physician Phone Call To Pt/Provider Intermed (11-20 min) 47263 03/23 DARINEL BROWNLEE [facility] Non-Physician Phone Call To Patient/Provider Brief (5-10min) Non-Physician Phone Call To Patient/Provider Brief (5-10min) 42131 11/01 REBEL GONZALEZ [facility] Non-Physician Phone Call To Patient/Provider Brief (5-10min) Non-Physician Phone Call To Patient/Provider Brief (5-10min) 80057 10/04 MAYTE HINES [facility] Non-Physician Phone Call To Patient/Provider Brief (5-10min) Non-Physician Phone Call To Patient/Provider Brief (5-10min) 25764 07/28 KAYLIE EVANS [facility] Physical Therapy Service Re-Evaluation Physical Therapy Service Re-Evaluation 50032 06/15 BILLY DON [facility] Physical Therapy: ___ Se ion Segments, 15 Minutes Each Physical Therapy: ___ Session Segments, 15 Minutes Each 87859 05/30 THI NESS [facility] Modalities Heat Hot Packs Modalities Heat Hot Packs 68412 05/22 THI NESS [facility] Physician Supervised Injection Intramuscular Antibiotic Physician Supervised Injection Intramuscular Antibiotic 94475 [facility] A e ment, Each 15 Minutes Health And Behavior Assessment, Each 15 Minutes 19459 FRED FRENCH [facility] Health And Behav A e mt Each 15 Min Initial A e ment Health And Behav Assessmt Each 15 Min Initial Assessment 82042 FRED FRENCH [facility] Osteopathic Manip Treatment (OMT) 3-4 Body Regions Involved Osteopathic Manip Treatment (OMT) 3-4 Body Regions Involved 69444 RITA ANDREWS [facility] Modalities Electrical Stimulation Attended Each 15 Minutes Modalities Electrical Stimulation Attended Each 15 Minutes 55319 RITA ANDREWS [facility] Physical or manipulative therapy performed for maintenance rather than voodoo RITA ANDREWS [facility] Needle, sterile, any size, each RITA ANDREWS [facility] Vaccine SARS-CoV-2 mRNA-LNP Aaron Protein Preservative Free 100mcg/0.5mL IM Vaccine SARS-CoV-2 mRNA-LNP Aaron Protein Preservative Free 100mcg/0.5mL IM [address] [facility] Vaccine SARS-CoV-2 mRNA-LNP Aaron Protein Preservative Free 100mcg/0.5mL IM First Dose Vaccine SARS-CoV-2 mRNA-LNP Aaron Protein Preservative Free 100mcg/0.5mL IM First Dose 0011A [facility] Vital Signs Recorded Vital Signs Recorded LINDSAY NORMAN [facility] Bioelectrical Impedance Analysis Whole Body Supine With Interpretation And Report Bioelectrical Impedance Analysis Whole Body Supine With Interpretation And Report 0358T LINDSAY NORMAN [facility] Pulmonary Function - O2 Uptake - Gas Analysis Pulmonary Function - O2 Uptake - Gas Analysis 00043 LINDSAY NORMAN [facility] Nutrition cla es, non-physician provider, per se JAM Aguero [facility] Vaccine SARS-CoV-2 mRNA-LNP Aaron Protein Preservative Free 100mcg/0.5mL IM Second Dose Vaccine SARS-CoV-2 mRNA-LNP Aaron Protein Preservative Free 100mcg/0.5mL IM Second Dose 0012A PRIMITIVO NELSON [facility] Health And Behavior Intervention, Each Additional 15 Minutes Individual Health And Behavior Intervention, Each Additional 15 Minutes Individual [id number] BERTA BOWER III [facility] Physician Supervised Injection Intramuscular Physician Supervised Injection Intramuscular 05005 LINDSAY CRESPO Please give 30mg IM Ketorolac in clinic now. [facility] Injection, ketorolac tromethamine, per 15 mg LINDSAY CRESPO [facility] Patient education, not otherwise cla ified, non-physician provider, individual, per se [facility] [place] [facility] SCREENING TEST, PURE TONE, AIR ONLY 10/27 [facility] SCREENING TEST, PURE TONE, AIR ONLY 10/26 DoD SIMPLE REPAIR OF SUPERFICIAL WOUNDS OF SCALP, NECK, AXILLAE, EXTERNAL GENITALIA, TRUNK AND/OR EXTREMITIES (INCLUDING HANDS AND FEET); 2.5 CM OR LESS 02/21 [facility] CIRCUMCISION 11/07 [facility] OTHER PHOTOTHERAPY 11/07 DoD TELE ASSESS & [...] 24H/SOON APT; 11-20 MIN MED DIS 05/30 [facility] PATIENT EDUCATION, NOT OTHERWISE CLASSIFIED, NON-PHYSICIAN PROVIDER, INDIVIDUAL, PER SESSION 05/20 [facility] PATIENT EDUCATION, NOT OTHERWISE CLASSIFIED, NON-PHYSICIAN PROVIDER, INDIVIDUAL, PER SESSION 04/26 DoD TELE ASSESS & MGT SRV PROV QUAL NONPHYS HLTH CARE PRO TO EST PAT,PARENT,GUARD NOT ORIG REL ASSESS & MGT SRV PROV W/IN PREV 7 DAYS NOR LEAD ASSESS & MGT SRV/PX W/IN NXT 24H/SOON APT; 11-20 MIN MED DIS 03/08 DoD INJECTION, KETOROLAC TROMETHAMINE, PER 15 MG 01/16 [facility] INFECTIOUS AGENT ANTIGEN DETECTION BY IMMUNOASSAY WITH DIRECT OPTICAL (IE, VISUAL) OBSERVATION; INFLUENZA 12/04 [facility] BRIEF EMOTIONAL/BEHAVIORA L ASSESSMENT (EG, DEPRESSION INVENTORY, [...] &/KIERA ASSESS FUNC OUTCOME TYP,20 MIN SPENT [id number]-OO-[id number] W PAT&/FAM 07/12 DoD APPLICATION OF A [...] NONPHYS HCP TO AN ESTABLISHED PAT/GUARDIAN,NOT ORIGINAT FR RELAT ASSESS &MANAG SERV PROVIDE W/IN THE PREV 7 DAYS,USE THE [employer] 05/22 DoD APPLICATION OF A MODALITY [...] OF LOW COMPLEXITY,TYPICALL Y,20 MIN ARE SPENT [id number] W THE PATIENT &/FAMILY 03/28 DoD PURE [...] HEALTH AND BEHAVIOR INTERVENTION, EACH 15 MINUTES, [id number]; INDIVIDUAL 04/12 DoD DETERMINATION OF REFRACTIVE STATE 04/07 DoD TELE [...] L MONITOR, HEALTH-ORIENT QUESTIONNAIRES), EA 15 MIN [id number] W THE PATIENT; INIT ASSESSMENT 03/28 DoD [...] SCORING AND DOCUMENTATION, PER STANDARDIZED INSTRUMENT 04/15 [facility] PSYCHOTHERAPY, 60 MINUTES WITH PATIENT 04/08 [facility] SPIROMETRY, INCLUDING GRAPHIC RECORD, TOTAL AND TIMED VITAL CAPACITY, EXPIRATORY FLOW RATE MEASUREMENT(S), WITH OR WITHOUT MAXIMAL VOLUNTARY VENTILATION 04/08 DoD THERAPEUTIC PROCEDURE, 1 OR MORE AREAS, EACH 15 MINUTES; THERAPEUTIC EXERCISES TO DEVELOP STRENGTH AND ENDURANCE, RANGE OF MOTION AND FLEXIBILITY 04/05 [facility] PURE TONE AUDIOMETRY (THRESHOLD), AUTOMATED; AIR ONLY [...] MED DIS 12/14 DoD QUALIFIED NONPHYSICIAN HEALTH SUPPORT SERVICE TECH ONLINE DIGITAL ASSESSMENT AND MANAGEMENT, FOR AN [...] TONE AUDIOMETRY (THRESHOLD), AUTOMATED; AIR ONLY 04/02 [facility] SPIROMETRY, INCLUDING GRAPHIC RECORD, TOTAL AND TIMED VITAL CAPACITY, EXPIRATORY FLOW RATE MEASUREMENT(S), WITH OR WITHOUT MAXIMAL VOLUNTARY VENTILATION 03/11 [facility] HOSPITAL OUTPATIENT CLINIC VISIT SPECIMEN COLLECTION FOR SEVERE ACUTE RESPIRATORY SYNDROME CORONAVIRUS 2 (SARS-COV-2) (CORONAVIRUS DISEASE [COVID-19]), ANY SPECIMEN SOURCE 02/08 DoD TELE ASSESS & MGT SRV PROV QUAL NONPHYS HLTH CARE PRO TO EST PAT,PARENT,GUARD NOT ORIG REL ASSESS & MGT SRV PROV W/IN PREV 7 DAYS NOR LEAD ASSESS & MGT SRV/PX W/IN NXT 24 HR/SOON APT;5-10 MIN MED DIS 12/30 [facility] ELECTROCARDIOGRAM, ROUTINE ECG WITH AT LEAST 12 LEADS; WITH INTERPRETATION AND REPORT 12/22 DoD WAIVER SERVICES; NOT OTHERWISE SPECIFIED (NOS) 12/10 [facility] SLEEP STUDY, UNATTENDED, SIMULTANEOUS RECORDING; MINIMUM OF [...] WAIVER SERVICES; NOT OTHERWISE SPECIFIED (NOS) 09/11 [facility] BRIEF COMM TECH-BASE SERV,E.G. VIRT CHK-IN,BY PHYS/OTH QUAL HCP,RPT E&M SERV,PROV TO EST PT,NOT ORIG FRM REL E/M SERV PROV W/IN PREV 7DAY NOR LEAD TO E/M SRV/PX W/IN NEXT 24HR/SOON YAMIL; 5-10 MIN DISC 09/01 [facility] ADMINISTRATION OF PATIENT-FOCUSED HEALTH RISK ASSESSMENT INSTRUMENT (EG, HEALTH HAZARD APPRAISAL) WITH SCORING AND DOCUMENTATION, PER STANDARDIZED INSTRUMENT 08/31 [facility] CRUTCHES UNDERARM, OTHER THAN WOOD, ADJUSTABLE OR FIXED, PAIR, WITH PADS, TIPS AND HANDGRIPS 08/30 [facility] PATIENT EDUCATION, NOT OTHERWISE CLASSIFIED, NON-PHYSICIAN PROVIDER, GROUP, PER SESSION 08/26 DoD IMMUNIZATION ADM,INTRAMUSCULAR INJECTION OF SEVERE AC RESPIRATORY SYNDROME CORONAVIR 2 (SARSCOV-2) (CORONAVIR DIS [COVID-19]) VACC,MRNALNP,SPIKE PROT,PRESERVATIVE FREE,100 MCG/0.5ML DOSAG;SECOND DOSE 07/28 [facility] NUTRITION CLASSES, NON-PHYSICIAN PROVIDER, PER SESSION 07/24 [facility] OXYGEN UPTAKE, GAS ANALYSIS; REST, INDIRECT (SEPARATE PROCEDURE) 07/23 DoD WAIVER SERVICES; NOT OTHERWISE SPECIFIED (NOS) 07/15 [facility]D IMMUNIZATION ADM,INTRAMUSCULAR INJECTION OF SEVERE AC RESPIRATORY SYNDROME CORONAVIR 2 (SARSCOV-2) (CORONAVIR DIS [COVID-19]) VACCINE,MRNALNP,SPI KE PROT,PRESERVATIVE FREE,100 MCG/0.5ML DOSAG;1ST DOSE 06/30 [facility] NEEDLE, STERILE, ANY SIZE, EACH 06/18 [facility] PURE TONE AUDIOMETRY (THRESHOLD), AUTOMATED; AIR ONLY [...]
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
== END 2024-03-20 13:34 | disposition home or self-care (01) ==
LOC: HO.US 13:33
PROVIDERS: PCP Internal Medicine; Visit Provider Internal Medicine
DX: I82.402 Acute embolism and thrombosis of unspecified deep veins of left lower extremity (principal)
CPT/HCPCS: 93971

== ENCOUNTER → 2024-03-20 13:35 | Outpatient (BNV) | payer OTHER, SELFPAY | PROVIDERS: PCP Internal Medicine; Visit Provider Radiology Diagnostic Radiology | DX: I82.402 Acute embolism and thrombosis of unspecified deep veins of left lower extremity (principal) | CPT/HCPCS: 93971 ==

== ENCOUNTER 2024-04-01 09:33 | Outpatient (REF) | payer OTHER, SELFPAY ==
--- NOTE | ~2024-04-01 | CT_ITS ---
EXAMINATION: CT ANGIOGRAM CHEST CLINICAL INFORMATION: Pulmonary embolism without acute cor pulmonale. COMPARISON: None available. TECHNIQUE: Multiple axial images were obtained through the chest after the administration of 65 mL of Omnipaque 350 intravenous contrast. Extensive vascular post-processing including two-dimensional and three-dimensional reformatted images were created and reviewed on an independent workstation. This CT examination was performed using dose optimization techniques as appropriate, variously including the following: *Automated exposure control *Adjustment of mA and/or kV according to patient size (this includes techniques or standardized protocols for targeted exams where dose is matched to indication/reason for exam; i.e. extremities or head) *Use of iterative reconstruction technique. DLP: 155 mGy-cm FINDINGS: Limited by patient's breathing motion artifact. No gross intraluminal filling defects within the main pulmonary artery or its main branches. No aneurysm or gross dissection, thoracic aorta. No pericardial effusion. No consolidation, pleural effusion or pneumothorax. No bronchiectasis. No honeycombing. Respiratory airways is patent. Nonspecific subtle groundglass, lower lung lobes. No lymphadenopathy, mediastinum or perihilar. No acute fracture or listhesis in the axial skeleton. No lytic or blastic lesions. CT/CT angio chest PE protocol IMPRESSION: No acute pulmonary artery emboli. No aneurysm or dissection, thoracic aorta. No acute airspace disease. Probable atelectasis, lung bases. Fleischner guidelines were followed. Electronically signed by: Willis Haynes MD 04/01/2024 11:02 AM [facility]
[2024-04-01] MEDS: iohexoL 350 MG/ML 75 ML INFUS..BTL 65 ML IV (10:10)
--- OUTSIDE RECORDS SUMMARY | 2024-04-01 13:56 | XMS_ITS ---
Author Organization [facility] Address [address] [place] [address] Care Team Providers Care Box Machine Operator Name Role Phone Ginger ROQUE, Sharon Sewell Primary Care Provider Un available Talisha Lau Unavailable [phone] REASON FOR VISIT r/s HABILITATION ASSISTANT 02/19 Encounters Encounter Location Date Provider Diagnosis [facility] [address] [place] [address] 02/15/2024 Talisha Sid Plan Of Treatment Next Appt Details Provider Name:Talisha Esqueda Sid , 04/16/2024 08:30:00 AM, [address] [facility], [place], [address], Progress Notes * Naseem ABERNATHY RDOB:[birth year] (28 yo M)Acc No.[id number]:02/15/2024 Patient:?Naseem ABERNATHY :1995???Age:28 Y???Sex:Male Address:[address] [place] [address] * true * Date:? Generated for Printi john/Prisca/eTransmitting on:?04/01/2024 01:56 PM EST
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
--- OUTSIDE RECORDS SUMMARY | 2024-04-01 13:56 | XMS_ITS ---
Author Organization [facility] Address [address] [place] [address] Care Team Providers Care Masonry Teacher Name Role Phone Ginger ROQUE, Sharon Sewell Primary Care Provider Un available Talisha Lau Unavailable [phone] Waldemar Neri Unavailable [phone] Encounters Encounter Location Date Provider Diagnosis [facility] [address] [place] [address] 02/20/2024 Waldemar Neri Plan Of Treatment Next Appt Details Provider Name:Talisha Lau , 04/16/2024 08:30:00 AM, [address] [facility], [place], [address], Progress Notes * Naseem ABERNATHY RDOB:[birth year] (28 yo M)Acc No.[id number]:02/20/2024 Progress Notes Patient:?Naseem ABERNATHY Provider:?Waldemar Neri DPM :1995???Age:28 Y???Sex:Male Juan Jose e:02/20/2024 Address:[address] [place] [address] Pcp:Emma Molina Subjective: * Chief Complaints: * ??? * Medical History:? Objective: * Vitals:? Assessment: Plan: * Treatment: * Images: * The named appointment provid er may or may not be the originator of this progress note, and it is not deemed complete until electronically signed by the appointment provider. Sign off status: Pending * Provider:?Waldemar Neri DPM Date:?2023 Generated for Erendira lopez/Prisca/Humphrey on:?04/01/2024 01:56 PM EST
--- OUTSIDE RECORDS SUMMARY | 2024-04-01 13:56 | XMS_ITS | Patient Health Record ---
[facility] Organization [facility] Address [address] [place] [address] Care Team Providers Care Television Maintenance Worker Name Role Phone Ginger ROQUE, Sharon Sewell Primary Care Provider Un available SidMichealTalisha Unavailable [phone] Waldemar Neri Unavailable [phone] Reason For Referral No Information Encounters Encounter Location Date Provider Diagnosis [facility] [address] [place] [address] 02/05/2024 Talisha Lau [facility] [address] [place] [address] 02/15/2024 Talisha Sid Plan Of Treatment Next Appt Details Provider Name:Talisha Esqueda Sid , 04/16/2024 08:30:00 AM, [address] [facility], [place], [address], Insurance Providers Payer Name Payer Address Payer Phone Subscriber Number Group Number Insured Name Patient Relationship to Insured Coverage Start Date Coverage End Date [facility] [address] [place] [address] [id number] Naseem Aguilar Self - patient is the insured
--- OUTSIDE RECORDS SUMMARY | 2024-04-01 13:57 | XMS_ITS | Clinical Summary ---
Author Organization [facility] Address [address] [place] [address] Care Team Providers Care Medtronics Technician Name Role Phone Unavailable Primary Care Provider Unavailabl e Social History Tobacco Use Types Packs/Day Years Used Date Smoking Tobacco: Never Assessed Sex and Gender Information Value Date Recorded Sex Assigned at Not on file Gender Identity Not on file Sexual Orientation Not on file Last Filed Vital Signs Vital Sign Reading Time Taken Comments Blood Pressure 115/80 09/11/2022 12:57 PM EDT Pulse 77 09/11/2022 12:57 PM EDT Temperature - - Respiratory Rate - - Oxygen Saturation - - Inhaled Oxygen Concentration - - Weight - - Height - - Body Mass Index - - Plan of Treatment Health Maintenance Due Date Last Done Comments DTaP,Tdap,and Td Vaccines (1 - Tdap) 2013 Hepatitis B Vaccines (1 of 3 - 19+ 3-dose series) 2013 COVID-19 Vaccine (2023-2 5 season) 2023 Influenza Vaccine (#1) 2023 Depression Screening 12/31/2023 HIV Screening 12/31/2023 Hepatitis C Screening 12/31/2023 Social Influencers of Health Screening 12/31/2023 HIB Vaccines Aged Out No longer eligi ble based on patient's age to complete this topic HPV Vaccines Aged Out No longer eligi ble based on patient's age to complete this topic Hepatitis A Vaccines Aged Out No long er eligible based on patient's age to complete this topic IPV Vaccines Aged Out No longer eligi ble based on patient's age to complete this topic MMR Vaccines Aged Out No longer eligi ble based on patient's age to complete this topic Meningococcal ACWY Vaccine Aged Out N o longer eligible based on patient's age to complete this topic Pneumococcal Vaccine: Pediat rics (0 to 5 Years) and At-Risk Patients (6 to 64 Years) Aged Out No longer eligible b ased on patient's age to complete this topic RSV Immunization Patients Un sahra 20 months Aged Out No longer eligible b ased on patient's age to complete this topic Varicella Vaccines Aged Out No longer eligible based on patient's age to complete this topic
--- OUTSIDE RECORDS SUMMARY | 2024-04-01 13:57 | XMS_ITS | Clinical Summary ---
Author Organization [facility] Address [address] [place] [address] Care Team Providers Care Repairer Screen Crusher Name Role Phone Unknown Primary Care Provider [phone] Allergies No known active allergies Medications Medication Sig Dispensed Refills Start Date End Date Status adapalene (DIFFERIN) 0.1 % cream Apply 0.1 % topically. 02/09/2022 Active amphetamine-dextroamp hetamine (ADDERALL) 15 MG tablet 10/03/2022 Active ferrous sulfate 325 (65 FE) MG tablet Take 1 tablet by mouth every other day. 12/20/2022 Active LORazepam (ATIVAN) 1 MG tablet Take 1 mg by mouth daily as needed. 01/04/2023 Active metaxalone (SKELAXIN) 800 MG tablet 10/03/2022 Active mirtazapine (REMERON) 15 MG tablet TAKE 1 TABLET BY MOUTH EVERYDAY AT BEDTIME 01/04/2023 Active naproxen (NAPROSYN) 250 MG tablet Take with food/milk.Take or use exactly as directed.Obtain advice for OTCs.May cause drowsiness/dizzines s.Check with your doctor before becoming . 10/03/2022 Active Active Problems No known active problems Social History Tobacco Use Types Packs/Day Years Used Date Smoking Tobacco: Never Smokeless Tobacco: Never Tobacco Cessation:Counseling Given: Not Answered Sex and Gender Information Value Date Recorded Sex Assigned at Not on file Gender Identity Not on file Sexual Orientation Not on file Last Filed Vital Signs Vital Sign Reading Time Taken Comments Blood Pressure - - Pulse - - Temperature 36.5 ??C (97.7 ??F) 01/10/2023 5:39 PM ES T Respiratory Rate 16 01/10/2023 5:39 PM EST Oxygen Saturation - - Inhaled Oxygen Concentration - - Weight - - Height - - Body Mass Index - - Plan of Treatment Health Maintenance Due Date Last Done Comments Hepatitis C Virus Screening 1994 HIV Screening 11/02/2007 DTaP/Tdap/Td Vaccines (1 - Tdap) 2013 Hepatitis B Vaccines (1 of 3 - 19+ 3-dose series) 2013 Influenza Vaccine 10/05/2023 12/17/2021, , 12/19/2019, Additional history exists COVID-19 Vaccine (2023- season) 2023 03/12/2021, 07/28/2020, 06/30/2020 HPV Vaccines Aged Out No longer eligi ble based on patient's age to complete this topic Pneumococcal Vaccine: Pediatric (0-5 Years) and At-Risk Patients (6 to 49 Years) Aged Out No longer eligible based on patient's age to complete this topic Care Teams Repairer Screen Crusher Relationship Specialty Start Date End Date Unknown Unknow Provider Address PCP - General 01/10/23
--- OUTSIDE RECORDS SUMMARY | 2024-04-01 13:57 | XMS_ITS ---
Author Organization [facility] Address [address] [place] [address] Care Team Providers Care Hand Shoes Sewer Name Role Phone Ginger ROQUE, Sharon Sewell Primary Care Provider Un available Talisha Lau Jenniffer [phone] Encounters Encounter Location Date Provider Diagnosis [facility] [address] [place] [address] 02/12/2024 Talisha Lau Plan Of Treatment Next Appt Details Provider Name:Talisha Lau , 04/16/2024 08:30:00 AM, [address] [facility], [place], [address], Progress Notes * Naseem MEHTA RDOB:[birth year] (28 yo M)Acc No.[id number]:02/12/2024 Progress Notes Patient:?Naseem MEHTA Provider:?Talisha Lau DPM :1995???Age:28 Y???Sex:Male Juan Jose e:02/12/2024 Address:[address] [place], [place] [address] Pcp:Emma Molina Subjective: * Chief Complaints: * ??? * Medical History:? Objective: * Vitals:? Assessment: Plan: * Treatment: * Images: * The named appointment provid er may or may not be the originator of this progress note, and it is not deemed complete until electronically signed by the appointment provider. Sign off status: Pending * Provider:?Talisha Lau DPM Date:?2023 Generated for Erendira lopez/Prisca/Humphrey on:?04/01/2024 01:56 PM EST
--- OUTSIDE RECORDS SUMMARY | 2024-04-01 13:57 | XMS_ITS | Clinical Summary ---
Author Organization [facility] Address [address] [place] [address] Care Team Providers Care Machinist Outside Name Role Phone Unavailable Primary Care Provider Unavailabl e Allergies No known active allergies Medications No known medications Active Problems No known active problems Social History Tobacco Use Types Packs/Day Years Used Date Smoking Tobacco: Never Assessed Sex and Gender Information Value Date Recorded Sex Assigned at Not on file Gender Identity Not on file Sexual Orientation Not on file Job Start Date Occupation Industry Not on file Not on file Not on file Last Filed Vital Signs Vital Sign Reading Time Taken Comments Blood Pressure 115/80 09/11/2022 12:57 PM EDT Pulse 77 09/11/2022 12:57 PM EDT Temperature 37.1 ??C (98.7 ??F) 09/11/2022 12:57 PM E DT Respiratory Rate 16 09/11/2022 12:57 PM EDT Oxygen Saturation 98% 09/11/2022 12:57 PM EDT Inhaled Oxygen Concentration - - Weight - - Height - - Body Mass Index - - Plan of Treatment Health Maintenance Due Date Last Done Comments Hepatitis B Vaccines (1 of 3 - 3-dose series) 1994 Hepatitis C Screening 1994 COVID-19 Vaccine (#1) 05/04/1995 Depression Screening 2006 Preventative Health Evaluation 2012 DTap / Tdap / Td (1 - Tdap) 2013 Influenza Vaccine (#1) 2023 Pneumococcal Vaccine Aged Out No long er eligible based on patient's age to complete this topic RSV Ped < 20 months Aged Out No longe r eligible based on patient's age to complete this topic
== END 2024-04-01 09:34 | disposition home or self-care (01) ==
LOC: HO.CT 09:33
PROVIDERS: PCP Internal Medicine; Visit Provider Internal Medicine
DX: I26.99 Other pulmonary embolism without acute cor pulmonale (principal)
CPT/HCPCS: 71275; Q9967

== ENCOUNTER → 2024-04-01 09:35 | Outpatient (BNV) | payer OTHER, SELFPAY | PROVIDERS: PCP Internal Medicine; Visit Provider Radiology Diagnostic Radiology | DX: I26.99 Other pulmonary embolism without acute cor pulmonale (principal) | CPT/HCPCS: 71275 ==

== ENCOUNTER 2024-04-04 08:00 | Outpatient (AMB) | payer OTHER, SELFPAY ==
[2024-04-04 08:09] VITALS: BP 108/70; PULSE 91; TEMP 36.8; O2SAT 97; BMI 29.0
--- NOTE | 2024-04-04 08:09 | A.OFFPC_ITS ---
Vital Signs 04/04/24 08:09 Height 6 ft Weight 214 lb BMI 29.0 BP 108/70 Blood Pressure Location Lt brachial Position Sitting Pulse 91 Pulse Source Pulse Oximeter Temp 98.2 F Temp Source Oral Pulse Oximetry (%) 97 Oxygen Delivery Method Room Air Intake Visit Reasons: [facility] f[facility]u fall at home Intake Note: Pt is here today [facility] f/u fall at home on 03/25/24 Allergies Oxycodone Adverse Reaction (Unknown, Uncoded 04/07/24 14:46) Nausea Medication List - Last Reconciled 04/07/24 by Sharon Miles MD acetaminophen-codeine 300-30 mg 1 tab PO Q8H PRN apixaban 5 mg PO BID 1 month baclofen 10 mg PO BID betamethasone dipropionate 0.05% 1 appl topical BID 14 days bupropion HCl XL 150 mg PO DAILY clomiphene citrate 25 mg (1/2 x 50 mg) PO .MWF 30 days dextroamphetamine-amphetamine 15 mg ER 1 cap PO QAM dextroamphetamine-amphetamine 5 mg (Adderall) 5 mg PO DAILY escitalopram oxalate 20 mg PO DAILY hydroxyzine HCl 25 mg PO BID lorazepam 2 mg PO BEDTIME PRN metaxalone mg PO ONCE mirtazapine 30 mg PO BEDTIME needle (disp) 18 G (BD Regular Bevel Lyons) As directed - draw up testosterone omeprazole 20 mg PO DAILY ondansetron 8 mg PO TID safety needles (Easy Touch FlipLock Needle) As directed - administer katherine tosterone syringe (disposable) (BD Luer-Fuentes Syringe) Testosterone injection weekly tadalafil (Cialis) 20 mg PO DAILY PRN 90 days tadalafil (Cialis) 5 mg PO DAILY 90 days testosterone cypionate (Depo-Testosterone) 200 mg IM Q2W 4 weeks Tobacco use date assessed: 04/04/24 Dental Screening Dental Screen Date: 04/04/24 Did you have a dental visit in the last 12 months?: Yes Did you have a dental problem in the last 6 months where you did not have access to dental care?: No Was dental information given to patient?: Patient has dentist HPI [facility] f[facility] fall at home HPI Details 28-year-old male here today for follow-u p after recent ER visit at [facility] on 03/27/2024, after a mechanical fall while getting out of the shower. Patient reports hitting his left lower back and hip on the side of the bathtub and then the floor. No loss of consciousness reported he was able to get up slowly and walk by himself. Denies any preceding dizziness or heart palpitations, no seizure history.. Patient is still continues to complain of lower back pain mainly on the left side accompanied by numbness and tingling going down left leg, has a hematoma that is healing on his left hip but complains of pain in area with climbing stairs and getting in and out of bed or in the car he has a history of bulging discs in his lumbar spine, concerned that he might do have re-injured it again. He is currently on Eliquis due to history of bilateral PE and left leg DVT 12/24/2023. He he was given a prescription for Tylenol with codeine which she took every 6 hours affording relief of pain but is out of his medication continue has just been taking Tylenol which affords not much pain relief. 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 Needs a form detailing medical limitation s completed to be submitted to the [employer]. Patient also with history of migraine, requests a letter to be submitted to [facility] to be allowed to have darker than legal limit tint placed on his vehicle for prevention of migraine headaches [facility] Medical History (Updated 04/07/24 @ 15:26 by Sharon Miles MD) Excessive daytime sleepiness History of pulmonary embolism History of deep venous thrombosis (DVT) of distal vein of left lower extremity 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 assisted anticoagulation Bilateral pulmonary embolism Elevated serum creatinine At risk for sexually transmitted disease due to partner with multiple partners Chronic heartburn Cervicalgia Lumbago of lumbar region with sciatica Chronic pain of both feet Hyperlipidemia History of chlamydia Witnessed apneic spells Erectile dysfunction History of COVID-19 Lumbar degenerative disc disease PTSD (post-traumatic stress disorder) Lumbar disc disease with radiculopathy ADD (attention deficit disorder) Surgical History No pertinent past surgical history Social History Housing: Apartment Patient Tobacco Use Status: Never used Tobacco e-Cigarette/Vaping Use: Never Used service: Yes Current occupational status: employed Cognitive needs: No Hearing needs: No Vision needs: No Questionnaire Thrive Questionnaire Date Thrive assessed: 10/09/23 I am a: Patient What is your living situation today?: I have a steady place to live Within the past 12 months, did the food you bought not last and you didn't have the money to get more?: I choose not to answer this question Within the past 12 months, did you worry whether your food would run out before you got money to buy more?: I choose not to answer this question Do you have trouble paying for medicines?: No Do you have trouble getting transportation to medical appointments?: No Do you have trouble paying your heating and electricity bill?: I choose not to answer this question Do you have trouble taking care of your child, family member or friend?: I choose not to answer this question Do you have trouble with day-to-day activities such as bathing, preparing meals, shopping, managing finances, etc.?: I choose not to answer this question Are you currently unemployed and looking for a job?: I choose not to answer this question Are you interested in more education?: I choose not to answer this question Please select the resources that you would like help with: None Currently or been in a relationship where the following occur: I choose not to answer THRIVE Score: 0 AUDIT C Alcohol Use Questionnaire (AUDIT-C) 1. How often do you have a drink containing alcohol?: Monthly or less 2. How many drinks containing alcohol do you have on a typical day when you are drinking?: 1 or 2 3. How often do you have six or more drinks on one occasion?: Never Total Score: 1 KHANG-7 AMB Questionnaire KHANG-7 Date KHANG - 7 assessed: 10/09/23 Feeling nervous, anxious, or on edge: 3 = Nearly every day Not being able to stop or control worryin = Nearly every day Worrying too much about different things: 3 = Nearly every day Trouble relaxin = Nearly every day Being so restless that it is hard to sit still: 3 = Nearly every day Becoming easily annoyed or irritable: 1 = Several days Feeling afraid as if something awful might happen: 2 = More than half the days Total KHANG-7 score (0-4 normal; 5-9 mild; 10-14 moderate; 15-21 severe): 18 Source: Developed by Drs. Shamir Ferraro, Jael Adams, Yobani Landaverde and colleagues, with an educational vidya from [employer]. Review of Systems Const All systems reviewed & are unremarkable except as noted in HPI and below Reports no additional complaints Eyes Reports no additional complaints Card Denies chest pain, Denies chest pain with activity, Denies rapid heart rate and Denies irregular heart rhythm Resp Reports no additional complaints GI Reports no additional complaints Reports no additional complaints Musc Reports as per HPI Skin/Breast Reports as per HPI Neuro Reports as per HPI Masood/Lymph Reports easy bruising Physical exam (Primary Care) Vital Signs: Last Vital Signs Temp 98.2 F 04/04/24 08:09 Pulse 91 04/04/24 08:09 BP 108/70 04/04/24 08:09 Pulse Ox 97 04/04/24 08:09 Oxygen Delivery Method Room Air 04/04/24 08:09 BMI result Body Mass Index 29.0 Tobacco/Smoking Status: Tobacco use Status Tobacco use date assessed 04/04/24 04/04/24 08:16 Patient Tobacco Use Status Never used Tobacco 04/04/24 08:16 e-Cigarette/Vaping Use Never Used 04/04/24 08:16 Thrive Assessment: Date of Thrive Assessment Date Thrive assessed 10/09/23 04/04/24 08:16 Currently or been in a relationship where the following occur: I choose not to answer Const Other: Antalgic gait favoring left side General: cooperative, comfortable, no acute distress, alert and awake Orientation/consciousness: patient oriented x3 HENMT Head: Yes normocephalic General nose exam: Normal external nose present Face and sinus: Yes face symmetric Mouth: Normal oral and palatal mucosa present, oropharynx normal and moist mucous membranes Eyes General: appearance normal, both eyes and all related structures Neck Neck: Yes full ROM and Yes no lymphadenopathy Resp Effort & Inspection: normal respiratory effort and able to speak in complete sentences Auscultation: clear to auscultation bilaterally Cardio Rate: regular rate Rhythm: regular rhythm Heart sounds: S1 normal heart sound present and S2 normal heart sound present GI Palpation (GI): Soft to palpation, no guarding and no masses Auscultation: normal bowel sounds Back/Spine/Pelvis Thoracic/Lumbar Spine: paraspinal muscle tenderness on the left Neuro General: patient oriented x3, gait normal, tone normal, moves all extremities and Normal light touch and pain sensation Cranial nerves: Yes CN's II-XII intact bilaterally Cognition (Neuro): normal cognition Motor exam (neuro): 5/5 motor strength present throughout Extrem Other: Healing hematoma on left hip, decreased range of motion of left hip due to pain Coding Level of Care Code Est Pt Level 4 (34454) Diagnoses Lumbago of lumbar region with sciatica M54.40 Lumbar disc disease with radiculopathy M51.16 Hx of bad fall Z91.81 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 technician terminal and repeater anticoagulation Z79.01 Hematoma of left hip, subsequent encounter S70.02XD Encounter type: subsequent encounter Assessment & Plan Assessment & Plan (1) Lumbago of lumbar region with sciatica: Code(s): M54.40 - Lumbago with sciatica, unspecified side Category: Medical (2) Lumbar disc disease with radiculopathy: Comment: L5-S1 status post epidural injection in Gerald 2021 currently going to [facility] in [place] status post right L4-L5 interlaminar NITHYA. 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 Temporary prescription for Tylenol with codeine given to take as needed for pain control, complemented by prescribed physical therapy focusing on rehabilitation. For migraine management, patient states he would like a prescription for Alpha- Stim , but was advised to discuss this further with his neurologist. Breast copy of neurology consult. Letter was written to DM requesting to allow patient to have darker than legal limit window tint on his car windows Orders: Orders PT Evaluation and Treatment 04/04/24 M54.40 - Lumbago with sciatica, unspecified side, M54.50 - Low back pain, unspecified, Z91.81 - History of falling MR lumbar spine wo con 04/04/24 M51.16 - Intervertebral disc disorders with radiculopathy, lumbar region, M51.26 - Other intervertebral disc displacement, lumbar region, M54.40 - Lumbago with sciatica, unspecified side, Z91.81 - History of falling Medications: New acetaminophen-codeine 300-30 mg 1 tab PO Q8H PRN 30 tabs 0RF pain, severe
--- OUTSIDE RECORDS SUMMARY | 2024-04-04 10:52 | XMS_ITS | Patient Health Record ---
Author Organization [facility] Address [address] [place] [address] Care Team Providers Care Rater Associate Name Role Phone Ginger ROQUE, Sharon Sewell Primary Care Provider Un available David Garcia Unavailable [phone] Talisha Lau Unavailable [phone] Waldemar Neri Unavailable [phone] Reason For Referral No Information Encounters Encounter Location Date Provider Diagnosis [facility] [address] [place] [address] 02/05/2024 Talisha Black [facility] [address] [place] [address] 02/15/2024 Talisha Lau Plan Of Treatment Next Appt Details Provider Name:David Garcia, 04/18/2024 01:30:00 PM, [address] [facility], [place], [address], Insurance Providers Payer Name Payer Address Payer Phone Subscriber Number Group Number Insured Name Patient Relationship to Insured Coverage Start Date Coverage End Date [facility] [address] [place] [address] [id number] Naseem Aguilar Self - patient is the insured
--- OUTSIDE RECORDS SUMMARY | 2024-04-04 10:53 | XMS_ITS ---
Author Organization [facility] Address [address] [place] [address] Care Team Providers Care Inspector Subassemblies Name Role Phone Ginger ROQUE, Sharon Sewell Primary Care Provider Un available David Garcia Unavailable [phone] Waldemar Neri Unavailable [phone] Encounters Encounter Location Date Provider Diagnosis [address] [address] 02/20/2024 Waldemar Neri Plan Of Treatment Next Appt Details Provider Name:David Garcia, 04/18/2024 01:30:00 PM, [address] [place] [address], [address], Progress Notes * Naseem ABERNATHY RDOB:[birth year] (28 yo M)Acc No.[id number]:02/20/2024 Progress Notes Patient:?Naseem ABERNATHY Provider:?Waldemar Neri DPM :1995???Age:28 Y???Sex:Male Juan Jose e:02/20/2024 Address:[address] [place], [place] [id number] Pcp:Emma Molina Subjective: * Chief Complaints: * ??? * Medical History:? Objective: * Vitals:? Assessment: Plan: * Treatment: * Images: * The named appointment provid er may or may not be the originator of this progress note, and it is not deemed complete until electronically signed by the appointment provider. Sign off status: Pending * Provider:?Waldemar Neri DPM Date:?2023 Generated for Erendira lopez/Prisca/Humphrey on:?04/04/2024 10:53 AM EST
--- OUTSIDE RECORDS SUMMARY | 2024-04-04 10:53 | XMS_ITS | Clinical Summary ---
Author Organization [facility] Address [address] [place] [address] Care Team Providers Care Health Services Director Name Role Phone Unknown Primary Care Provider [...] age to complete this topic Care Teams Health Services Director Relationship Specialty Start Date End Date Unknown Unknow Provider Address PCP - General 01/10/23
--- OUTSIDE RECORDS SUMMARY | 2024-04-04 10:53 | XMS_ITS | Clinical Summary ---
Author Organization [facility] Address [address] [place] [address] Care Team Providers Care Onion Tier Name Role Phone Unavailable Primary Care Provider [...]
--- OUTSIDE RECORDS SUMMARY | 2024-04-04 10:53 | XMS_ITS ---
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 [address] [place] [address] 02/15/2024 Talisha Lau Plan Of Treatment Next Appt Details Provider Name:David Dheeraj Garcia, 04/18/2024 01:30:00 PM, [address] [place] [address], [place], [address], Progress Notes * Naseem ABERNATHY RDOB:[birth year] (28 yo M)Acc No.[id number]:02/15/2024 Patient:?Naseem ABERNATHY :1995???Age:28 Y???Sex:Male Address:[address] [place] [address] * true * Date:? Generated for Printi john/Prisca/eTransmitting on:?04/04/2024 10:52 AM EST
--- OUTSIDE RECORDS SUMMARY | 2024-04-04 10:53 | XMS_ITS ---
Author Organization [facility] Address [address] [place] [address] Care Team Providers Care Warehouse Logistics Manager Name Role Phone Ginger ROQUE, Sharon Sewell Primary Care Provider Un available Garcia David Unavailable [phone] Talisha Lau [phone] Encounters Encounter Location Date Provider Diagnosis [address] [address] 02/12/2024 Talisha Lau Plan Of Treatment Next Appt Details Provider Name:David Dheeraj Garcia, 04/18/2024 01:30:00 PM, [address] [place] [address], [address], Progress Notes * Naseem ABERNATHY RDOB:[birth year] (28 yo M)Acc No.[id number]:02/12/2024 Progress Notes Patient:?Naseem ABERNATHY Provider:?Talisha Lau DPM :1995???Age:28 Y???Sex:Male Juan Jose e:02/12/2024 Address:[address] [place], [place] [address] Pcp:Emma Molina Subjective: * Chief Complaints: * ??? * Medical History:? Objective: * Vitals:? Assessment: Plan: * Treatment: * Images: * The named appointment provid er may or may not be the originator of this progress note, and it is not deemed complete until electronically signed by the appointment provider. Sign off status: Pending * Provider:?Talisha Lau DPM Date:?2023 Generated for Erendira lopez/Prisca/Humphrey on:?04/04/2024 10:53 AM EST
--- OUTSIDE RECORDS SUMMARY | 2024-04-04 10:53 | XMS_ITS | Clinical Summary ---
Author Organization [facility] Address [address] [place] [address] Care Team Providers Care Automotive Services Manager Name Role Phone Unavailable Primary Care Provider [...]
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
== END 2024-04-04 09:16 | disposition home or self-care (01) ==
PROVIDERS: PCP Internal Medicine; Visit Provider Internal Medicine
DX: M51.16 Intervertebral disc disorders with radiculopathy, lumbar region (principal); Z91.81 History of falling; Z79.01 Long term (current) use of anticoagulants; S70.02XD Contusion of left hip, subsequent encounter

== ENCOUNTER → 2024-04-04 08:00 | Outpatient (BNVA) | payer OTHER, SELFPAY | PROVIDERS: PCP Internal Medicine; Visit Provider Internal Medicine | DX: M54.40 Lumbago with sciatica, unspecified side (principal); M51.16 Intervertebral disc disorders with radiculopathy, lumbar region; S70.02XD Contusion of left hip, subsequent encounter; Z91.81 History of falling; Z79.01 Long term (current) use of anticoagulants | CPT/HCPCS: 99212 ==

== ENCOUNTER → 2024-04-23 09:58 | Outpatient (BNV) | payer OTHER, SELFPAY | PROVIDERS: PCP Internal Medicine; Visit Provider Radiology Diagnostic Radiology | DX: M51.26 Other intervertebral disc displacement, lumbar region (principal); M51.A4 Intervertebral annulus fibrosus defect, small, lumbosacral region | CPT/HCPCS: 72148 ==

== ENCOUNTER 2024-04-23 10:00 | Outpatient (REF) | payer OTHER, SELFPAY ==
--- NOTE | ~2024-04-23 | MR_ITS ---
CLINICAL HISTORY: M54.40 - Lumbago with sciatica, unspecified side MRI lumbar spine without contrast Comparison: None Findings: L5-S1 facet hypertrophy and disc bulge without canal stenosis. Right paramidline posterior annular tear noted. No significant neural foraminal narrowing. L4-5 facet hypertrophy with right paracentral disc protrusion. Small right paramidline posterior annular tear noted. No significant canal or neural foraminal narrowing. L3-4 facet hypertrophy without canal stenosis. No significant neural foraminal narrowing. Remaining levels are unremarkable. No acute bony signal abnormality noted. Posterior bony alignment is normal. Impression: L4-5 small focal right paramidline disc protrusion with annular tear L5-S1 disc bulge and right-sided posterior annular tear No significant canal or neural foraminal narrowing noted This document has been electronically signed by: Michael Winters MD on 04/23/2024 19:13:09
--- OUTSIDE RECORDS SUMMARY | 2024-04-23 10:50 | XMS_ITS | Clinical Summary ---
Author Organization [facility] Address [address] [place] [address] Care Team Providers Care Patient Financial Representative Name Role Phone Unavailable Primary Care Provider [...]
--- OUTSIDE RECORDS SUMMARY | 2024-04-23 10:50 | XMS_ITS | Patient Health Record ---
Author Organization [facility] Address [address] [place] [address] Care Team Providers Care Cardiopulmonary Technician Name Role Phone Ginger ROQUE, Sharon Sewell Primary Care Provider Un available David Garcia Unavailable [phone] Talisha Lau Unavailable [phone] Waldemar Neri Unavailable [phone] Reason For Referral No Information Encounters Encounter Location Date Provider Diagnosis [facility] [address] [place] [address] [facility]/05/2024 [facility] [address] [place] [address] 02/15/2024 [facility] [address] [address] 04/11/2024 David Garcia Plan Of Treatment No Information Insurance Providers Payer Name Payer Address Payer Phone Subscriber Number Group Number Insured Name Patient Relationship to Insured Coverage Start Date Coverage End Date [facility] [address] [place] [id number] Naseem Aguilar Self - patient is the insured
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
--- OUTSIDE RECORDS SUMMARY | 2024-04-23 10:50 | XMS_ITS ---
Author Organization [facility] Address [address] [place] [address] Care Team Providers Care Park Activities Coordinator Name Role Phone Ginger ROQUE, Sharon Sewell Primary Care Provider Un available David Garcia Unavailable [phone] Waldemar Neri Unavailable [phone] Encounters Encounter Location Date Provider Diagnosis [address] [address] 02/20/2024 Waldemar Neri Plan Of Treatment No Information Progress Notes * Naseem ABERNATHY RDOB:[birth year] (28 yo M)Acc No.[id number]:02/20/2024 Progress Notes Patient:?Naseem ABERNATHY Provider:?Waldemar Neri DPM :1995???Age:28 Y???Sex:Male Juan Jose e:02/20/2024 Address:[address] [place], [place] [address] Pcp:Emma Molina Subjective: * Chief Complaints: * ??? * Medical History:? Objective: * Vitals:? Assessment: Plan: * Treatment: * Images: * The named appointment provid er may or may not be the originator of this progress note, and it is not deemed complete until electronically signed by the appointment provider. Sign off status: Pending * Provider:?Waldemar Neri DPM Date:?2023 Generated for Erendira lopez/Prisca/eTransmitting on:?04/23/2024 10:50 AM EST
--- OUTSIDE RECORDS SUMMARY | 2024-04-23 10:50 | XMS_ITS ---
Author Organization [facility] Address [address] [place] [address] Care Team Providers Care Weathercaster Name Role Phone Ginger ROQUE, Sharon Sewell Primary Care Provider Un available David Garcia [phone] Encounters Encounter Location Date Provider Diagnosis [address] [address] 04/18/2024 David Garcia Plan Of Treatment No Information Progress Notes * Naseem MEHTA RDOB:[birth year] (28 yo M)Acc No.[id number]:04/18/2024 Progress Notes Patient:?Naseem MEHTA Provider:?David Garcia D.P.M. :1995???Age:28 Y???Sex:Male Juan Jose e:04/18/2024 Address:[address] [place], [place] [id number] Pcp:Emma Molina Subjective: * Chief Complaints: * ??? * Medical History:? Objective: * Vitals:? Assessment: Plan: * Treatment: * Images: * The named appointment provid er may or may not be the originator of this progress note, and it is not deemed complete until electronically signed by the appointment provider. Sign off status: Pending * Provider:?David Garcia D.P.M. Date:?04/06 Generated for Nenai john/Fastephanie/eTransmitting on:?04/23/2024 10:50 AM EST
--- OUTSIDE RECORDS SUMMARY | 2024-04-23 10:50 | XMS_ITS ---
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 Generated for Erendira lopez/Prisca/eTransmitting on:?04/23/2024 10:50 AM EST
--- OUTSIDE RECORDS SUMMARY | 2024-04-23 10:50 | XMS_ITS | Clinical Summary ---
Author Organization [facility] Address [address] [place] [address] Care Team Providers Care Telegraph Service Rater Name Role Phone Unknown Primary Care Provider [...] age to complete this topic Care Teams Telegraph Service Rater Relationship Specialty Start Date End Date Unknown Unknow Provider Address PCP - General 01/10/23
--- OUTSIDE RECORDS SUMMARY | 2024-04-23 10:50 | XMS_ITS | Clinical Summary ---
Author Organization [facility] Address [address] [place] [address] Care Team Providers Care Marketing Planning Manager Name Role Phone Unavailable Primary Care Provider Unavailabl e Social History Tobacco Use Types Packs/Day Years Used Date Smoking Tobacco: Never Assessed Sex and Gender Information Value Date Recorded Sex Assigned at Not on file Legal Sex Male 5:44 PM EDT Gender Identity Not on file Sexual Orientation [...] patient's age to complete this topic Meningococcal B Vacine Aged Out No lo nger eligible based on patient's age to complete [...]
== END 2024-04-23 10:01 | disposition home or self-care (01) ==
LOC: HO.MRI 10:00
PROVIDERS: PCP Internal Medicine; Visit Provider Internal Medicine
DX: M54.40 Lumbago with sciatica, unspecified side (principal); M51.26 Other intervertebral disc displacement, lumbar region; Z91.81 History of falling
CPT/HCPCS: 72148

== ENCOUNTER 2024-05-03 08:52 | Outpatient (AMB) | payer OTHER, SELFPAY ==
--- NOTE | 2024-05-03 08:54 | A.SPINEOV_ITS ---
Vital Signs 05/03/24 08:56 Height 6 ft Weight 214 lb BMI 29.0 Intake Visit Reasons: LBP Intake Note: Mr. Mehta is here today c/o Low back pain. 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 He has been having worsening back pain and now shooting pain down the legs He has a recent mri and is here to review. Sleeping has been difficult. 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 He has been on limited duty recently, has not been participating in PT. it is painful just to walk and get up and move around. On my exam his strength is full and his reflexes are normal. The lumbar MRI that he had done just a few weeks ago shows that the herniated disc at L4-5 has retracted somewhat but he still showing signs of disc degeneration at L4-5. I would rate this as mild to moderate but in light of his age it is a bit accelerated. I think a large part of what he is dealing with his overuse relating to his time with the and this certainly is only going to get aggravated as time goes on. I talked to him about the possibility of switching rolls where he would not have to be involved with such repetitive motions with the back and physical exertion. I do not think it is realistic for him to keep it up long- term or he is likely going to need some kind of back surgery down the road. Right now I think it best we continue to manage this conservatively. He was requesting to see if he is a candidate for a blade of therapy of any sort so I will send him to to see if he thinks there is something he can do for him. Total amount of time spent in this visit was 20 minutes in discussion of symptoms, MRI imaging results and subsequent plan of care Mil Castillo MD,PhD [facility] Orders: Referrals Pain Management Referral M54.40 - Lumbago with sciatica, unspecified side Coding Level of Care Code Est Pt Level 3 (04409) Diagnoses Lumbago of lumbar region with sciatica M54.40
[2024-05-03 08:56] VITALS: BMI 29.0
--- OUTSIDE RECORDS SUMMARY | 2024-05-03 09:16 | XMS_ITS | Clinical Summary ---
Author Organization [facility] Address [address] [place] [address] Care Team Providers Care Tunnel Elastic Operator Zigzag Name Role Phone Unknown Primary Care Provider [...] Active Active Problems No known active problems Encounters Date Type Department Care Team Description 05/02/2024 Transcribe Orders [facility] Pulmonary [place] [address] [facility] [address] [place] [address] Sharon Miles MD Bilateral pulmonary embolism (HCC) (Primary Dx) from Last 3 Months Social History Tobacco Use Types Packs/Day Years [...] age to complete this topic Care Teams Tunnel Elastic Operator Zigzag Relationship Specialty Start Date End Date Unknown Unknow Provider Address PCP - General 01/10/23
--- OUTSIDE RECORDS SUMMARY | 2024-05-03 09:16 | XMS_ITS ---
Author Organization [facility] Address [address] [place] [address] Care Team Providers Care Childcare Attendant Name Role Phone Ginger ROQUE, Sharon Sewell Primary Care Provider Un available SidTalisha Unavailable [phone] David Garcia [phone] Encounters Encounter Location Date Provider Diagnosis [address] [address] 04/18/2024 David Garcia Plan Of Treatment Next Appt Details Provider Name:Talisha Lau , 07/09/2024 02:00:00 PM, [address] [place] [address], [place], [address], Progress Notes * Naseem ABERNATHY RDOB:[birth year] (28 yo M)Acc No.[id number]:04/18/2024 Progress Notes Patient:?Naseem ABERNATHY Provider:?David Garcia D.P.M. :1995???Age:28 Y???Sex:Male Juan Jose e:04/18/2024 Address:[address] [place] [address] Pcp:Emma Molina Subjective: * Chief Complaints: * ??? * Medical History:? Objective: * Vitals:? Assessment: Plan: * Treatment: * Images: * The named appointment provid er may or may not be the originator of this progress note, and it is not deemed complete until electronically signed by the appointment provider. Sign off status: Pending * Provider:?David Garcia D.P.M. Date:?04/06 Generated for Erendira lopez/Prisca/Humphrey on:?05/03/2024 09:16 AM EST
--- OUTSIDE RECORDS SUMMARY | 2024-05-03 09:16 | XMS_ITS ---
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 Generated for Printi john/Prisca/eTransmitting on:?05/03/2024 09:16 AM EST
--- OUTSIDE RECORDS SUMMARY | 2024-05-03 09:16 | XMS_ITS ---
Author Organization [facility] Address [address] [place] [address] Care Team Providers Care Tie Binder Name Role Phone Ginger ROQUE, Sharon Sewell Primary Care Provider Un available Talisha Lau Unavailable [phone] Waldemar Neri Unavailable [phone] Encounters Encounter Location Date Provider Diagnosis [facility] [address] [place] [address] 02/20/2024 Waldemar Neri Plan Of Treatment Next Appt Details Provider Name:Talisha Lau , 07/09/2024 02:00:00 PM, [address], [place], [address], Progress Notes * Naseem ABERNATHY RDOB:[birth year] (28 yo M)Acc No.[id number]:02/20/2024 Progress Notes Patient:?Naseem ABERNATHY Provider:?Waldemar Neri DPM :1995???Age:28 Y???Sex:Male Juan Jose e:02/20/2024 Address:[address] [place] [address] Pcp:Emma Molina Subjective: * Chief Complaints: * ??? * Medical History:? Objective: * Vitals:? Assessment: Plan: * Treatment: * Images: * The named appointment provid er may or may not be the originator of this progress note, and it is not deemed complete until electronically signed by the appointment provider. Sign off status: Pending * Provider:?Waldemar Neri DPM Date:?2023 Generated for Erendira lopez/Prisca/Humphrey on:?05/03/2024 09:15 AM EST
--- OUTSIDE RECORDS SUMMARY | 2024-05-03 09:16 | XMS_ITS | Encounter Summary ---
Author Organization [facility] Address [address] [place] [id number] Care Team Providers Care Dehydrogenation Converter Helper Name Role Phone Unknown Primary Care Provider [phone] -[phone] Reason for Referral * Pulmonary (Routine) - Authorized Specialty Diagnoses / Procedures Referred By Contac t Referred To Contact Pulmonary Medicine / Pulmonology Diagnoses Bilateral pulmonary embolism (HCC) Sharon Miles MD [address] [place] [address] Mg [address] [address] Referral ID Status Reason Start Date Expiration Date V isits Requested Visits Authorized [id number] Authorized Consult 05/02/2024 05/03/2025 1 1 Question Answer Reason for Referral: Other Other reason: BILATERAL PULMONARY EMBOLISM Encounter Details Date Type Department Care Team (Latest Contact Info) Description 05/02/2024 Transcribe Orders [facility] Pulmonary [address] [address] Sharon Miles MD [address] [place] [address] Bilateral pulmonary embolism (HCC) (Primary Dx) Social History Tobacco Use Types Packs/Day Years Used Date Smoking Tobacco: Never Smokeless Tobacco: Never Sex and Gender Information Value Date Recorded Sex Assigned at Not on file Gender Identity Not on file Sexual Orientation Not on file documented as of this encounter Plan of Treatment Scheduled Referrals Name Type Priority Associated Diagnoses Order Schedule Amb Referral to Pulmonology Outpatient Referral Routine Bilateral pulmonary embolism (HCC) Ordered: 05/02/2024 documented as of this encounter Visit Diagnoses Diagnosis Bilateral pulmonary embolism (HCC)- Primary Other pulmonary embolism and infarction documented in this encounter Care Teams Dehydrogenation Converter Helper Relationship Specialty Start Date End Date Unknown Unknow Provider Address PCP - General 01/10/23 documented as of this encounter
--- OUTSIDE RECORDS SUMMARY | 2024-05-03 09:16 | XMS_ITS | Clinical Summary ---
Author Organization [facility] Address [address] [place] [address] Care Team Providers Care Graduate Teaching Assistant Name Role Phone Unavailable Primary Care Provider [...]
--- OUTSIDE RECORDS SUMMARY | 2024-05-03 09:17 | XMS_ITS | Clinical Summary ---
Author Organization [facility] Address [address] [place] [address] Care Team Providers Care Customer Experience Strategist Name Role Phone Unavailable Primary Care Provider [...]
== END 2024-05-03 09:48 | disposition home or self-care (01) ==
PROVIDERS: PCP Internal Medicine; Referring Provider Internal Medicine; Visit Provider Physician Assistant
DX: M54.40 Lumbago with sciatica, unspecified side (principal)
CPT/HCPCS: 99213

== ENCOUNTER → 2024-05-03 08:52 | Outpatient (BNVA) | payer OTHER, SELFPAY | PROVIDERS: PCP Internal Medicine; Referring Provider Internal Medicine; Visit Provider Physician Assistant | DX: M54.40 Lumbago with sciatica, unspecified side (principal) | CPT/HCPCS: 99212 ==

== ENCOUNTER 2024-05-17 11:40 | Outpatient (AMB) | payer OTHER, SELFPAY ==
--- NOTE | 2024-05-17 11:41 | MHC.OFFVIS ---
Intake Visit Reasons: Back pain/Lumbago with sciatica Allergies oxycodone Allergy (Severe, Verified 05/29/24 13:21) Nausea Seasonal Allergies Allergy (Verified 05/29/24 13:21) sneezing HPI HPI Back pain/Lumbago with sciatica: Details: History of Present Illness The patient is a 28-year-old male presenting with chronic low back pain. Initially, the pain appeared in 2017, predominantly on the right side. Recently, his back pain worsened following a slip in which he struck his back against a bathtub. An MRI obtained at [facility] revealed improvement in disc positioning compared to prior scans, yet his pain has worsened. The pain is bilateral but more intense on the right, contributing to tightness and discomfort that spreads through his hips, down to his calves. The patient's symptoms were relieved temporarily by a previous injection, which lasted about four months. The pain involves no clear nerve impingement upon MRI review, and continuation with stretching has been advised. Consideration has been given to a nerve stimulator trial to provide pain relief. Pain Description - Onset: Initial onset in 2017, worsened post-recent slip and fall. - Quality/Character: Tightness across hips, continuing into hamstrings, IT band, and calves; described as annoying pain. - Location: Bilateral, predominantly right-sided low back pain. - Exacerbating Factors: Pain recurs after stretching, worsens by activity over time. - Relieving Factors: Temporary relief with injections; stretching offers temporary alleviation. - Interference: Limits physical activities, causes recurrent tightness impacting daily function. Physical Exam - Appears afebrile. - Alert and oriented. - Mood and affect appropriate. - Follows and participates in conversation appropriately. - Respiratory effort is unlabored. - Able to transition from sit to stand unassisted. - Ambulates with bilaterally normal heel strike and toe off. - Able to stand and walk on toes and heels. - Reports LBP while at rest Results - MRI obtained at [facility] showing improved disc positioning compared to previous MRI. Pain Management - Affect: Pain impacts quality of life and causes frustration due to persistent tightness. - Analgesia: Reports harsh pain level; prior injection provided four-month relief but recurred. - Adverse Effects: No mention of notable adverse effects from pain interventions. - Activities of Daily Living: Pain causes significant disturbances in daily routines due to tightness. - Aberrant Drug Related Behaviors: No evidence or discussion of medication misuse or abuse. [facility] Medical History (Updated 05/31/24 @ 09:57 by Franca Morales NP) Excessive daytime sleepiness Bilateral foot pain History of pulmonary embolism History of deep venous thrombosis (DVT) of distal vein of left lower extremity 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 alf anticoagulation Bilateral pulmonary embolism Elevated serum creatinine At risk for sexually transmitted disease due to partner with multiple partners Chronic heartburn Cervicalgia Lumbago of lumbar region with sciatica Chronic pain of both feet Hyperlipidemia History of chlamydia Witnessed apneic spells Erectile dysfunction History of COVID-19 Lumbar degenerative disc disease PTSD (post-traumatic stress disorder) Lumbar disc disease with radiculopathy ADD (attention deficit disorder) Surgical History No pertinent past surgical history Social History Housing: Apartment Patient Tobacco Use Status: Never used Tobacco e-Cigarette/Vaping Use: Never Used service: Yes Current occupational status: employed Cognitive needs: No Hearing needs: No Vision needs: No Telehealth Telehealth Telehealth Platform: Telephone Location of provider rendering services: practice address Location of patient: address on file Patient Identification confirmed using: Name, : Yes Telehealth method: voice only Patient verbally consented to treatment: Yes Patient verbally consented to billing insurance company: Yes Patient informed of any privacy concerns related to visit: Yes Assessment & Plan Assessment & Plan (1) Lumbago of lumbar region with sciatica: Code(s): M54.40 - Lumbago with sciatica, unspecified side Category: Medical Plan Plan The patient's chronic low back pain may benefit from the introduction of a temporary nerve stimulator to simulate muscle relaxation wai to physical therapy exercises. It is proposed to trial this intervention over eight weeks, with the expectation of improved pain management. Prior PT, HEP and injections only offered transient relief, thus reducing the frequency of reliance on corticosteroids is recommended. The patient has been advised to research the nerve stimulation option. A structured approach to NSAID cessation is also suggested for future interventions. Patient was informed and verbally consented to the use of an ambient scribe for clinic note documentation during this visit. Discussion Notes During the visit, I discussed with the patient the nature of his chronic low back pain and the noted absence of significant nerve involvement per MRI results. A proposed intervention includes the application of a temporary nerve stimulator, which has potential success around 70%, offering significant pain relief by simulating muscle relaxation processes similar to physical therapy. The patient was advised of the non-surgical insertion method and the temporary nature of the device, lasting eight weeks. The patient was further informed of the potential delay in seeking surgical alternatives, recommending reduction of cortisone injections given alf risks and his young age. Research on the nerve stimulator is encouraged before proceeding. Follow-ups are recommended contingent upon his decision and satisfaction with current management strategies. Patient Instructions - Continue with regular stretching exercises to maintain flexibility. - Research the temporary nerve stimulator, focusing on its benefits and functioning. - Inform us once a decision is made regarding the trial of the nerve stimulator. - Avoid NSAIDs two weeks prior to considering new interventions. - Return for further consultation if symptoms persist or worsen. Coding Level of Care Code Est Pt Level 4 (61427) Diagnoses Lumbago of lumbar region with sciatica M54.40
--- OUTSIDE RECORDS SUMMARY | 2024-05-17 13:29 | XMS_ITS ---
Author Organization [facility] Address [address] [place] [address] Care Team Providers Care Supervisor In Circuit Testing Name Role Phone Ginger ROQUE, Sharon Sewell Primary Care Provider Un available SidTalisha Unavailable [phone] David Garcia [phone] Encounters Encounter Location Date Provider Diagnosis [address] [address] 04/18/2024 David Garcia Plan Of Treatment Next Appt Details Provider Name:Talisha Lau , 07/09/2024 02:00:00 PM, [address] [place] [address], [place], [address], Progress Notes * Naseem ABERNATHY RDOB:[birth year] (28 yo M)Acc No.[id number]:04/18/2024 Progress Notes Patient:?Naseem ABERNATHY Provider:?David Garcia D.P.M. :1995???Age:28 Y???Sex:Male Juan Jose e:04/18/2024 Address:[address] [place] [address] Pcp:Emma Molina Subjective: * Chief Complaints: * ??? * Medical History:? Objective: * Vitals:? Assessment: Plan: * Treatment: * Images: * The named appointment provid er may or may not be the originator of this progress note, and it is not deemed complete until electronically signed by the appointment provider. Sign off status: Pending * Provider:?David Garcia D.P.M. Date:?04/06 Generated for Erendira lopez/Prisca/Humphrey on:?05/17/2024 01:28 PM EDT
--- OUTSIDE RECORDS SUMMARY | 2024-05-17 13:29 | XMS_ITS | Clinical Summary ---
Author Organization [facility] Address [address] [place] [address] Care Team Providers Care Complex Care Nurse Name Role Phone Unknown Primary Care Provider [...] Department Care Team Description 05/02/2024 Transcribe Orders [facility] Pulmonary [place] [address] [facility] [address] [place] [address] Sharon Miles MD Bilateral pulmonary [...] Mass Index - - Plan of Treatment Upcoming Encounters Date Type Department Care Team (Late st Contact Info) Description 08/01/2024 8:00 AM EDT Office Visit [facility] [place] Pulmonary [place] [address] [place] [address] Forrest Campos MD [address] [place] [address] Health Maintenance Due Date Last Done Comments [...] age to complete this topic Care Teams Complex Care Nurse Relationship Specialty Start Date End Date Unknown Unknow Provider Address PCP - General 01/10/23
--- OUTSIDE RECORDS SUMMARY | 2024-05-17 13:29 | XMS_ITS ---
Author Organization [facility] Address [address] [place] [address] Care Team Providers Care Jewel Oliving Machine Operator Name Role Phone Ginger ROQUE, Sharon Sewell Primary Care Provider Un available Talisha Lau Unavailable [phone] Waldemar Neri Unavailable [phone] Encounters Encounter Location Date Provider Diagnosis [facility] [address] [place] [address] 02/20/2024 Waldemar Neri Plan Of Treatment Next Appt Details Provider Name:Talisha Lau , 07/09/2024 02:00:00 PM, [address] [facility], [place], [address], Progress Notes * Naseem ABERNATHY RDOB:[birth year] (28 yo M)Acc No.[id number]:02/20/2024 Progress Notes Patient:?Naseem ABERNATHY Provider:?Waldemar Neri DPM :1995???Age:28 Y???Sex:Male Juan Jose e:02/20/2024 Address:[address] [place] [address] Pcp:Emma Molina Subjective: * Chief Complaints: * ??? * Medical History:? Objective: * Vitals:? Assessment: Plan: * Treatment: * Images: * The named appointment provid er may or may not be the originator of this progress note, and it is not deemed complete until electronically signed by the appointment provider. Sign off status: Pending * Provider:?Waldemar Neri DPM Date:?2023 Generated for Erendira lopez/Prisca/Humphrey on:?05/17/2024 01:29 PM EDT
--- OUTSIDE RECORDS SUMMARY | 2024-05-17 13:29 | XMS_ITS | Clinical Summary ---
Author Organization [facility] Address [address] [place] [address] Care Team Providers Care Metal Hanging Supervisor Name Role Phone Unavailable Primary Care Provider [...]
--- OUTSIDE RECORDS SUMMARY | 2024-05-17 13:29 | XMS_ITS | Encounter Summary ---
Author Organization [facility] Address [address] [place] [address] Care Team Providers Care Sheet Catcher Name Role Phone Unknown Primary Care Provider [phone] -0000 Reason for Referral * Pulmonary (Routine) - Authorized Specialty Diagnoses / Procedures Referred By Contac t Referred To Contact Pulmonary Medicine / Pulmonology Diagnoses Bilateral pulmonary embolism (HCC) Sharon Miles MD [address] [place] [address] Mg Pul[address] [address] Referral ID Status Reason Start Date Expiration Date V isits Requested Visits Authorized [id number] Authorized Consult 05/02/2024 05/03/2025 1 1 Question Answer Reason for Referral: Other Other reason: BILATERAL PULMONARY EMBOLISM Encounter Details Date Type Department Care Team (Latest Contact Info) Description 05/02/2024 Transcribe Orders [facility] Pulmonary [address] [address] Sharon Miles MD [address] [place] [address] Bilateral pulmonary embolism (HCC) (Primary Dx) Social History Tobacco Use Types Packs/Day Years Used Date Smoking Tobacco: Never Smokeless Tobacco: Never Sex and Gender Information Value Date Recorded Sex Assigned at Not on file Gender Identity Not on file Sexual Orientation Not on file documented as of this encounter Plan of Treatment Upcoming Encounters Date Type Department Care Team (Late st Contact Info) Description 08/01/2024 8:00 AM EDT Office Visit [facility] Pulmonary [place] [address] [place] [phone] Forrest Campos MD [address] [place] [address] Scheduled Referrals Name Type Priority Associated Diagnoses Order Schedule Amb Referral to Pulmonology Outpatient Referral Routine Bilateral pulmonary embolism (HCC) Ordered: 05/02/2024 documented as of this encounter Visit Diagnoses Diagnosis Bilateral pulmonary embolism (HCC)- Primary Other pulmonary embolism and infarction documented in this encounter Care Teams Sheet Catcher Relationship Specialty Start Date End Date Unknown Unknow Provider Address PCP - General 01/10/23 documented as of this encounter
--- OUTSIDE RECORDS SUMMARY | 2024-05-17 13:29 | XMS_ITS | Patient Health Record ---
Author Organization [facility] Address [address] [place] [address] Care Team Providers Care Energy Assistant Name Role Phone Ginger ROQUE, Sharon Sewell Primary Care Provider Un available SidTalisha Unavailable [phone] Waldemar Neri Unavailable [phone] David Garcia Unavailable [phone] Reason For Referral No Information Encounters Encounter Location Date Provider [facility] [address] [place] [address] 02/05/2024 [facility] [address] [place] [address] 02/15/2024 Talisha [facility] [address] [address] 04/11/2024 David Garcia Plan Of Treatment Next Appt Details Provider Name:Talisha Lau , 07/09/2024 02:00:00 PM, [address] [place] [address] [place], [address], Insurance Providers Payer Name Payer Address Payer Phone Subscriber Number Group Number Insured Name Patient Relationship to Insured Coverage Start Date Coverage End Date [facility] [address] [place] [address] [id number] Naseem Aguilar Self - patient is the insured
--- OUTSIDE RECORDS SUMMARY | 2024-05-17 13:29 | XMS_ITS | Clinical Summary ---
Author Organization [facility] Address [address] [place] [address] Care Team Providers Care Sap Solution Manager Consultant Name Role Phone Unavailable Primary Care Provider [...]
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
--- OUTSIDE RECORDS SUMMARY | 2024-05-17 13:29 | XMS_ITS ---
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 Generated for Printi ng/Famadonnag/eTransmitting on:?05/17/2024 01:29 PM EDT
== END 2024-05-17 11:41 | disposition home or self-care (01) ==
LOC: HO.PMC 11:40
PROVIDERS: PCP Internal Medicine; Referring Provider Physician Assistant; Visit Provider Internal Medicine
DX: M54.40 Lumbago with sciatica, unspecified side (principal)
CPT/HCPCS: 98014

== ENCOUNTER → 2024-05-17 11:40 | Outpatient (BNVA) | payer OTHER, SELFPAY | PROVIDERS: PCP Internal Medicine; Referring Provider Physician Assistant; Visit Provider Internal Medicine ==

== ENCOUNTER 2024-05-29 10:17 | Outpatient (REF) | payer OTHER, SELFPAY ==
[2024-05-29 18:08] LABS: MANUAL DIFF FLAG NO
[2024-05-29 18:31] LABS: Basophils Percent Auto 0.5 % (0-2); Eosinophils Absolute Auto 0.1 X10*3/uL (0.0-0.4); Eosinophils Percent Auto 1.5 % (0-4); Hematocrit 45.3 % (42.0-52.0); Hemoglobin 16.1 g/dl (14.0-18.0); Imm Gran Abs Auto 0.02 X10*3/uL (0.00-0.03); Imm Gran Pct Auto 0.3 % (0.0-0.4); Mean Corpuscular HGB Conc 35.5 g/dl (31.0-36.0); Mean Corpuscular Hemoglobin 31.6 pg (27.0-33.0); Mean Corpuscular Volume 88.8 fL (80.0-98.0); Mean Platelet Volume 10.4 fL (9.4-12.4); Monocytes Absolute Auto 0.4 X10*3/uL (0.1-1.2); Monocytes Percent Auto 5.8 % (2-11); Neutrophils Absolute Auto 3.5 x10*3/uL (2.0-8.3); Neutrophils Percent Auto 58.9 % (45-73); Platelet Count 210 X10*3/uL (160-400); Red Cell Distribution Width 12.7 % (11.0-16.0)
[2024-06-11 11:25] LABS: Class Cockroach 0; Class Dermatophagoides farinae 2; Class Mouse Urine Protein 0; E072-IgE Mouse Urine <0.10; I006-IgE Cockroach, German <0.10; Immunoglobulin E 90
[2024-06-11 11:26] LABS: Class Aspergillus fumigatus 0; Class Cat Dander 0; Class Cladosporium herbarum 0; Class Dog Dander 0/1; Class Timothy Grass 4; E001 - IgE Cat Dander <0.10; E005 - IgE Dog Dander 0.35; M002 - IgE Cladosporium herbar <0.10; M003 - IgE Aspergillus fumigat <0.10; M006 - IgE Alternaria alternat <0.10
[2024-06-11 11:27] LABS: Class Alternaria alternata 0; Class Common Ragweed 2; Class Cottonwood 0; Class Mountain Cedar 0; Class Mugwort 0; Class Oak 0; Class Sycamore 0; Class Walnut Tree 0; Class White Ash 0/1; Class White Mulberry 0; T006 - IgE Cedar, Mountain <0.10; T007 - IgE Oak, White <0.10; T010 - IgE Walnut <0.10; T011 - IgE Maple Leaf Sycamore <0.10; T014 - IgE Cottonwood <0.10; T015 - IgE Ash, White 0.27; T070 - IgE White Mulberry <0.10; W006 - IgE Mugwort <0.10
[2024-06-11 11:28] LABS: Class Bermuda Grass 4; Class Birch 1; Class Derm. pterony 2; Class Elm 0/1; Class Penicillium crysogenum 0; M001 IgE Penicillium chrysogen <0.10; T003 IgE Common Silver Birch 0.35; T008 IgE Elm, American 0.21
[2024-06-11 11:29] LABS: Class Maple Box Elder 0; Class Rough Pigweed 1; Class Sheep Sorrel 0; T001 IgE Maple/Box Elder <0.10; W014 IgE Pigweed, Common 0.48; W018 IgE Sheep Sorrel <0.10
== END 2024-05-29 10:18 | disposition home or self-care (01) ==
LOC: HO.WFDLDS 10:17
PROVIDERS: PCP Internal Medicine; Visit Provider Nurse Practitioner Family
DX: J45.909 Unspecified asthma, uncomplicated (principal); R07.9 Chest pain, unspecified; G47.19 Other hypersomnia; Z91.09 Other allergy status, other than to drugs and biological substances; N52.9 Male erectile dysfunction, unspecified; R68.82 Decreased libido; E29.1 Testicular hypofunction; Z86.711 Personal history of pulmonary embolism
CPT/HCPCS: 36415; 82785; 85025; 86003; 99202; 99212

== ENCOUNTER 2024-05-29 10:17 | Outpatient (AMB) | payer OTHER, SELFPAY ==
--- NOTE | 2024-05-29 10:28 | MHC.OFFVIS ---
Intake Visit Reasons: 2M follow up/ Testo Intake Note: Patient is present for 2M/TESTO Urology Medication:TADALAFIL,TESTOSTERONE Antibiotic Allergy:NONE Blood Thinner:APIXABAN Boilermaker Loftsman Required: No Allergies oxycodone Allergy (Severe, Verified 05/29/24 13:21) Nausea Seasonal Allergies Allergy (Verified 05/29/24 13:21) sneezing HPI Comments Details: Naseem is a pleasant male. He is a patient of Dr. Miles. Has a following urological conditions - erectile dysfunction - hypogonadism Has been on 0.5 cc weekly Feels improved well-being Testosterone consistently around 600 Would like to increase testosterone May increase to 0.6 cc weekly Add hcg 2x 500 units weekly Prescriptions provided Six-month follow-up Hypogonadism Had good response to clomiphene stimulation TSH 12/26 1.60 FSH 12/26 2.7 07/27 5.3 Estradiol 1 13, 07/27 29 LH 12/26 5.9, 04/29 8.5, 07/27 10.7, LH 3.9 Prolactin 12/26 7.6, 07/27 8.0 SHBG 12/26 19, 07/27 24 Total testosterone 10/26 378, 12/26 297, 03/29 256, 04/29 606, 07/27 653, 11/27 542, 02/26 612 Free testosterone 10/26 86.6, 12/26 58.5, 03/29 50.0, 04/29 135.1, 07/27 TNP, 11/27 104 PFSH Medical History (Updated 05/29/24 @ 13:52 by Franca Morales NP) Bilateral foot pain Excessive daytime sleepiness History of pulmonary embolism History of deep venous thrombosis (DVT) of distal vein of left lower extremity 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 terminal 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 Bilateral pulmonary embolism Elevated serum creatinine At risk for sexually transmitted disease due to partner with multiple partners Chronic heartburn Cervicalgia Lumbago of lumbar region with sciatica Chronic pain of both feet Hyperlipidemia History of chlamydia Witnessed apneic spells Erectile dysfunction History of COVID-19 Lumbar degenerative disc disease PTSD (post-traumatic stress disorder) Lumbar disc disease with radiculopathy ADD (attention deficit disorder) Surgical History No pertinent past surgical history Social History Housing: Apartment Patient Tobacco Use Status: Never used Tobacco e-Cigarette/Vaping Use: Never Used service: Yes Current occupational status: employed Cognitive needs: No Hearing needs: No Vision needs: No Review of Systems Const Denies chills and Denies fever(s) Card Reports no additional complaints and Denies syncope Resp Denies cough GI Denies abdominal pain and Denies heartburn Reports as per HPI and Denies change in libido Neuro Denies syncope Psych Denies change in libido Endo Denies change in libido Physical Exam Const General: cooperative, healthy appearing, comfortable and no acute distress Orientation/consciousness: patient oriented x3 HEENT Face and sinus: Yes normal facial exam Mouth: moist mucous membranes Neck Neck: Yes normal visual inspection, Yes full ROM and Yes trachea midline Chest Chest palpation & inspection: normal inspection of the chest Resp Effort & Inspection: normal respiratory effort, able to speak in complete sentences and no respiratory distress GI Inspection: Yes normal to inspection Back/Spine/Pelvis Cervical Spine: normal cervical lordosis Thoracic/Lumbar Spine: thoracic and lumbar spine normal to inspection Skin General skin exam: no rashes or lesions noted Neuro General: patient oriented x3, gait normal, tone normal and moves all extremities Extrem General: Yes normal to inspection and Yes capillary refill normal Assessment & Plan Assessment & Plan (1) Erectile dysfunction: Code(s): N52.9 - Male erectile dysfunction, unspecified Category: Medical (2) Loss of libido: Code(s): R68.82 - Decreased libido Category: Medical (3) Hypogonadism in male: Code(s): E29.1 - Testicular hypofunction Category: Medical Plan Change testosterone to 120 mg - 0.6 cc subQ weekly Add HCG 500 units twice a week Orders: Orders Prostate Specific Antigen 6 Months E29.1 - Testicular hypofunction Complete Blood Count no Diff 6 Months E29.1 - Testicular hypofunction Testosterone, Total 6 Months E29.1 - Testicular hypofunction Medications: New Pregnyl (chorionic gonadotropin, human) 10,000 mix in 5cc of NSal Inject 0.5cc (1000 units) 2x a week intramuscular 1,000 units IM 2XW 10 weeks 2 ea 1RF testiclular pain with testosterone - low E2 NS E29.1 - Testicular hypofunction insulin syringe,safety needle (BD SafetyGlide Insulin Syringe) As directed - for hcg injection 100 ea 0RF E29.1 - Testicular hypofunction Patient Instructions: This note is constructed using voice recognition software. While every effort has been made to ensure accuracy medical equipment technician errors may have been included. Imaging studies, laboratory and physical exam results were discussed and reviewed in detail. No major barriers to patient understanding were identified. An opportunity to ask questions regarding the treatment plan was provided. All questions were answered. The patient expressed understanding and agreement with the above treatment plan. The patient is aware they should contact our office by phone for worsening of their current condition or the appearance of new urologic symptoms. Compliance is encouraged with any medications and followup testing that is ordered. It is a privilege to participate in the urologic care of your patient. If you have any questions or concerns regarding treatment for the above conditions, or other urologic issues, please do not hesitate to contact me. The office telephone contact is [phone]. Sincerely, Dr Cesar Cat MD, [facility] - Urology Compassionate Specialist Care for the Genitourinary System Coding Level of Care Code Est Pt Level 4 (59447) Diagnoses Erectile dysfunction N52.9 Loss of libido R68.82 Hypogonadism in male E29.1
--- OUTSIDE RECORDS SUMMARY | 2024-05-29 11:59 | XMS_ITS | Clinical Summary ---
Author Organization [facility] Address [address] [place] [address] Care Team Providers Care Wire Spring Relay Adjuster Name Role Phone Unknown Primary Care Provider [...] Department Care Team Description 05/02/2024 Transcribe Orders [facility] Pul[facility] [place] [address] [facility] [address] [place] [address] Sharon Miles MD Bilateral pulmonary [...] Description 08/01/2024 8:00 AM EDT Office Visit [facility] [place] [address] [place] [address] Forrest Campos MD [address] [place] [address] Health Maintenance Due Date Last Done Comments [...] age to complete this topic Care Teams Wire Spring Relay Adjuster Relationship Specialty Start Date End Date Unknown Unknow Provider Address PCP - General 01/10/23
--- OUTSIDE RECORDS SUMMARY | 2024-05-29 11:59 | XMS_ITS ---
Author Organization [facility] Address [address] [place] [address] Care Team Providers Care Mathematical Technician Name Role Phone Ginger ROQUE, Sharon Sewell Primary Care Provider Un available SidTalisha Unavailable [phone] David Garcia [phone] Encounters Encounter Location Date Provider Diagnosis [address] [address] 04/18/2024 David Garcia Plan Of Treatment Next Appt Details Provider Name:Talisha Lau , 07/09/2024 02:00:00 PM, [address] [place] [address], [place], [address], Progress Notes * Naseem ABERNATHY RDOB:[birth year] (28 yo M)Acc No.[id number]:04/18/2024 Progress Notes Patient:?Naseem ABERNATHY Provider:?David Garcia D.P.M. :1995???Age:28 Y???Sex:Male Juan Jose e:04/18/2024 Address:[address] [place] [address] Pcp:Emma Molina Subjective: * Chief Complaints: * ??? * Medical History:? Objective: * Vitals:? Assessment: Plan: * Treatment: * Images: * The named appointment provid er may or may not be the originator of this progress note, and it is not deemed complete until electronically signed by the appointment provider. Sign off status: Pending * Provider:?David Garcia D.P.M. Date:?04/06 Generated for Erendira lopez/Prisca/Humphrey on:?05/29/2024 11:59 AM EDT
--- OUTSIDE RECORDS SUMMARY | 2024-05-29 11:59 | XMS_ITS ---
Author Organization [facility] Address [address] [place] [address] Care Team Providers Care Packing And Final Assembly Supervisor Name Role Phone Ginger ROQUE, Sharon Sewell Primary Care Provider Un available SidMaiae Unavailable [phone] David Garcia [phone] REASON FOR VISIT CX SUPERVISOR CLOTH WINDING appt Encounters Encounter Location Date Provider Diagnosis [address] [address] 04/11/2024 David Garcia Plan Of Treatment Next Appt Details Provider Name:Talisha Lau , 07/09/2024 02:00:00 PM, [address] [place] [address], [place], [address], Progress Notes * Naseem ABERNATHY RDOB:[birth year] (28 yo M)Acc No.[id number]:04/11/2024 Patient:?Naseem ABERNATHY :1995???Age:28 Y???Sex:Male Address:[address] [place] [address] * true * Date:? Generated for Printi ng/Abdullahig/eTransmitting on:?05/29/2024 11:59 AM EDT
--- OUTSIDE RECORDS SUMMARY | 2024-05-29 11:59 | XMS_ITS | Patient Health Record ---
Author Organization [facility] Address [address] [place] [address] Care Team Providers Care Curator Horticultural Museum Name Role Phone Ginger ROQUE, Sharon Sewell Primary Care Provider Un available SidTalisha Unavailable [phone] Waldemar Neri Unavailable [phone] David Garcia Unavailable [phone] Reason For Referral No Information Encounters Encounter Location Date Provider Diagnosis [facility] [address] [place] [address] 02/05/2024 [facility] [address] [place] [address] 02/15/2024 Talisha [facility] [address] 04/11/2024 David Garcia Plan Of Treatment Next Appt Details Provider Name:Talisha Lau , 07/09/2024 02:00:00 PM, [address] [place] [address] [place], [address], Insurance Providers Payer Name Payer Address Payer Phone Subscriber Number Group Number Insured Name Patient Relationship to Insured Coverage Start Date Coverage End Date [facility] [address] [place] [address] [id number] Naseem Aguilar Self - patient is the insured
--- OUTSIDE RECORDS SUMMARY | 2024-05-29 11:59 | XMS_ITS | Encounter Summary ---
Author Organization [facility] Address [address] [place] [address] Care Team Providers Care Footwear Sales Coordinator Name Role Phone Unknown Primary Care Provider [phone] Reason for Referral * Pulmonary (Routine) - Authorized Specialty Diagnoses / Procedures Referred By Contac t Referred To Contact Pulmonary Medicine / Pulmonology Diagnoses Bilateral pulmonary embolism (HCC) Sharon Miles MD [address] [place] [address] Mg [address] [address] Referral ID Status Reason Start Date Expiration Date V isits Requested Visits Authorized [id number] Authorized Consult 05/02/2024 05/03/2025 1 1 Question Answer Reason for Referral: Other Other reason: BILATERAL PULMONARY EMBOLISM Encounter Details Date Type Department Care Team (Latest Contact Info) Description 05/02/2024 Transcribe Orders [facility]monary [address] [address] Sharon Miles MD [address] [place] [address] Bilateral pulmonary embolism (HCC) (Primary [...] Description 08/01/2024 8:00 AM EDT Office Visit [facility] [place] [address] [place] [phone] Forrest Campos MD [address] [place] [address] Scheduled Referrals Name Type Priority Associated Diagnoses Order Schedule Amb Referral to Pulmonology Outpatient Referral Routine Bilateral pulmonary embolism (HCC) Ordered: 05/02/2024 documented as of this encounter Visit Diagnoses Diagnosis Bilateral pulmonary embolism (HCC)- Primary Other pulmonary embolism and infarction documented in this encounter Care Teams Footwear Sales Coordinator Relationship Specialty Start Date End Date Unknown Unknow Provider Address PCP - General 01/10/23 documented as of this encounter
--- OUTSIDE RECORDS SUMMARY | 2024-05-29 11:59 | XMS_ITS ---
Author Organization [facility] Address [address] [place] [address] Care Team Providers Care Solar Energy Sales Specialist Name Role Phone Ginger ROQUE, Sharon Sewell Primary Care Provider Un available Talisha Lau Unavailable [phone] Waldemar Neri Unavailable [phone] Encounters Encounter Location Date Provider Diagnosis [facility] [address] [place] [address] 02/20/2024 Waldemar Neri Plan Of Treatment Next Appt Details Provider Name:Talisha Lau , 07/09/2024 02:00:00 PM, [address] [facility], [place], [address], Progress Notes * Naseem ABERNATHY RDOB:[birth year] (28 yo M)Acc No.[id number]:02/20/2024 Progress Notes Patient:?Naseem ABERNATHY Provider:?Waldemar Neri DPM :1995???Age:28 Y???Sex:Male Juan Jose e:02/20/2024 Address:[address] [place] [address] Pcp:Emma Molina Subjective: * Chief Complaints: * ??? * Medical History:? Objective: * Vitals:? Assessment: Plan: * Treatment: * Images: * The named appointment provid er may or may not be the originator of this progress note, and it is not deemed complete until electronically signed by the appointment provider. Sign off status: Pending * Provider:?Waldemar Neri DPM Date:?2023 Generated for Erendira lopez/Prisca/Humphrey on:?05/29/2024 11:59 AM EDT
--- OUTSIDE RECORDS SUMMARY | 2024-05-29 12:00 | XMS_ITS | Clinical Summary ---
Author Organization [facility] Address [address] [place] [address] Care Team Providers Care Speed Operator Name Role Phone Unavailable Primary Care Provider [...]
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
== END 2024-05-29 11:21 | disposition home or self-care (01) ==
LOC: HO.HUSH 10:18
PROVIDERS: PCP Internal Medicine; Visit Provider Urology
DX: N52.9 Male erectile dysfunction, unspecified (principal); R68.82 Decreased libido; E29.1 Testicular hypofunction
CPT/HCPCS: 99214

== ENCOUNTER 2024-05-29 12:47 | Outpatient (AMB) | payer OTHER, SELFPAY ==
--- NOTE | 2024-05-29 13:03 | MHC.OFFVIS ---
Vital Signs 05/29/24 13:18 Height 6 ft Weight 225 lb BMI 30.5 BP 106/68 Blood Pressure Location Lt brachial Position Sitting Pulse 104 H Pulse Source Pulse Oximeter Pulse Oximetry (%) 98 Oxygen Delivery Method Room Air Intake Visit Reasons: Hx Pulmonary Embolism Sales Engineering Manager Required: No Studio Receptionist: Studio Receptionist offered & declined Accompanied by: Self / Same As Patient Allergies oxycodone Allergy (Severe, Verified 05/29/24 13:21) Nausea Seasonal Allergies Allergy (Verified 05/29/24 13:21) sneezing Medication List - Last Reconciled 05/29/24 by Dora Marroquin LPN acetaminophen-codeine 300-30 mg 1 tab PO Q8H PRN apixaban 5 mg PO BID 1 month baclofen 10 mg PO BID betamethasone dipropionate 0.05% 1 appl topical BID 14 days bupropion HCl XL 150 mg PO DAILY clomiphene citrate 25 mg (1/2 x 50 mg) PO .MWF 30 days dextroamphetamine-amphetamine 15 mg ER 1 cap PO QAM dextroamphetamine-amphetamine 5 mg (Adderall) 5 mg PO DAILY escitalopram oxalate 20 mg PO DAILY hydroxyzine HCl 25 mg PO BID lorazepam 2 mg PO BEDTIME PRN metaxalone mg PO ONCE mirtazapine 30 mg PO BEDTIME needle (disp) 18 G (BD Regular Bevel [place]) As directed - draw up testosterone omeprazole 20 mg PO DAILY ondansetron 8 mg PO TID safety needles (Easy Touch FlipLock Needle) As directed - administer testosterone syringe (disposable) (BD Luer-Fuentes Syringe) Testosterone injection weekly tadalafil (Cialis) 5 mg PO DAILY 90 days tadalafil (Cialis) 20 mg PO DAILY PRN 90 days testosterone cypionate (Depo-Testosterone) 200 mg IM Q2W 4 weeks HPI HPI Hx Pulmonary Embolism: Details: Naseem is a pleasant 28 year old male, never smoker, with underlying h/o provoked DVT/PE completed 3 months of eliquis. He was referred by PCP for pulmonary evaluation for ongoing dyspnea. He reports dyspnea has been more noticeable over the last few months, occurs both at rest and with exertion. Denies cough, wheezing or chest tightness. He has been prescribed albuterol MDI in the past for reactive airway disease secondary to URI. He denies second hand smoke exposure. He endorses seasonal allergies, cat at home, no recent allergy testing performed. He reports likely occupational exposure working in the [employer], since 2015. He had provoked DVT/PE in December 2023 after sustained injury to LLE in [place] and presented to [facility] ED a week later, found to have moderate volume lobar, segmental and subsegmental PE on the right and small subsegmental PE on the left. There was question of right heart strain on CTA however echo unremarkable. He denies prior h/o or family history of DVT/PE. Repeat CTA 03/2024 revealed resolution of PEs. He also notes intermittent chest pain with or without exertion for the last 4 years, multiple times per month and newly reports two syncopal episodes 2-3 weeks ago, where he became dizzy, lowered himself to a chair and woke up on the ground. He denies cardiology work up however was seen in the ED for this EKG, CXR and bedside echo unremarkable. He is interested in cardiology referral as his younger brother recently underwent ablation for what sounds like SVT. He was also requesting sleep study. Per sleep medicine note :Pt reports snoring, gasping arousals and witnessed apnea spells. He has difficulty staying sleep, wakes up constantly, and feels never rested. He reports daytime sleepiness and having difficulty driving when he come home from work. Home sleep study negative. [facility] Medical History (Updated 05/31/24 @ 09:57 by Franca Morales NP) Excessive daytime sleepiness Bilateral foot pain History of pulmonary embolism History of deep venous thrombosis (DVT) of distal vein of left lower extremity 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 penitentiary anticoagulation Bilateral pulmonary embolism Elevated serum creatinine At risk for sexually transmitted disease due to partner with multiple partners Chronic heartburn Cervicalgia Lumbago of lumbar region with sciatica Chronic pain of both feet Hyperlipidemia History of chlamydia Witnessed apneic spells Erectile dysfunction History of COVID-19 Lumbar degenerative disc disease PTSD (post-traumatic stress disorder) Lumbar disc disease with radiculopathy ADD (attention deficit disorder) Surgical History No pertinent past surgical history Social History Housing: Apartment Patient Tobacco Use Status: Never used Tobacco e-Cigarette/Vaping Use: Never Used service: Yes Current occupational status: employed Cognitive needs: No Hearing needs: No Vision needs: No Review of Systems Const Denies chills, Denies excessive sweating, Denies fever(s), Denies headache(s) and Denies night sweats Eyes Denies dry eyes and Denies irritation ENT Reports Normal hearing present, Denies headache(s), Denies nasal congestion, Denies nasal discharge, Denies post nasal drip and Denies sore throat Card Denies claudication, Denies leg edema, Denies orthopnea and Denies paroxysmal nocturnal dyspnea Resp Denies chest congestion, Denies cough, Denies excessive phlegm production, Denies pain on inspiration, Denies pain with cough, Denies stridor and Denies wheezing Musc Denies myalgias Neuro Reports Normal hearing present and Denies headache(s) Endo Denies excessive sweating Masood/Lymph Denies lymphadenopathy Aller/Immun Denies seasonal rhinorrhea and Denies wheezing Physical Exam Vital Signs: Last Vital Signs Pulse 104 H 05/29/24 13:18 BP 106/68 05/29/24 13:18 Pulse Ox 98 05/29/24 13:18 Oxygen Delivery Method Room Air 05/29/24 13:18 BMI result Body Mass Index 30.5 Const General: cooperative, healthy appearing, comfortable, no acute distress, well developed and alert Orientation/consciousness: patient oriented x3 Limitations: no limitations HEENT Head: Yes normal to inspection, Yes normocephalic and Yes atraumatic Ears: hearing grossly normal bilaterally and external ears normal Eyes General: appearance normal, both eyes and all related structures Eyelids: Yes eyelids normal Sclerae: sclerae normal EOM: EOMs intact bilaterally Neck Neck: Yes normal visual inspection and Yes no lymphadenopathy Lymphatic: no lymphadenopathy noted Chest Chest palpation & inspection: normal inspection of the chest Resp Effort & Inspection: normal respiratory effort, able to speak in complete sentences, no audible wheezes, no cough, no stridor, not tachypneic, no tripod positioning and no use of accessory muscles Auscultation: clear to auscultation bilaterally Cardio Jugular venous distension: no JVD Rate: regular rate Rhythm: regular rhythm Skin Other: warm, dry General skin exam: no rashes or lesions noted Neuro General: patient oriented x3 Cranial nerves: Yes Normal hearing present Cognition (Neuro): normal cognition Gait exam (Neuro): Normal gait present Extrem General: Yes normal to inspection, Yes capillary refill normal, Yes no clubbing, cyanosis or edema and Yes no pedal edema Psych Appearance: grossly normal and well kempt Speech and movement: Normal speech and movement present and Clear speech present Affect: normal affect Attitude: cooperative Thought process: Normal thought process present Thought content: Normal thought content present Insight: Good insight present (Psych) Judgement: Good judgement present (Psych) Assessment & Plan Assessment & Plan (1) Reactive airway disease: Code(s): J45.909 - Unspecified asthma, uncomplicated Category: Medical (2) History of pulmonary embolism: Comment: bilateral 12/2023 Code(s): Z86.711 - Personal history of pulmonary embolism Category: Medical (3) Environmental allergies: Code(s): Z91.09 - Other allergy status, other than to drugs and biological substances Category: Medical (4) Excessive daytime sleepiness: Comment: Normal home sleep study 08/08/2023 Code(s): G47.19 - Other hypersomnia Category: Medical (5) Chest pain: Code(s): R07.9 - Chest pain, unspecified Category: Medical Plan Naseem presents for pulmonary evaluation for ongoing dyspnea, with h/o reactive airway disease and recently completed three months of Eliquis for provoked DVT/PE. Repeat CTA revealed resolution of pulmonary emboli. Will send for PFT to assess for obstructive defect. Will also send for RAST to assess for an allergic component. He questioned food allergies and referral to allergy will be entered. He also reports intermittent chest pain that has been ongoing x 4 years and recently had two syncopal events. ED workup negative for repeat PE and EKG/bedside echo unremarkable, brother with recent ablation for possible SVT. Will enter referral to cardiology for further evaluation. We did review signs and symptoms of requiring emergent evaluation. He reports symptoms suggestive of RAMBO, home sleep study negative, will send for in lab PSG for more thorough evaluation. All questions were answered and patient is in agreement of plan. Will follow up to review results or sooner if needed. Orders: Orders Immunoglobulin E 05/29/24 Z91.09 - Other allergy status, other than to drugs and biological substances PFT pulmonary function test 05/29/24 J45.909 - Unspecified asthma, uncomplicated Resp Allergy Profile Region I 05/29/24 Z91.09 - Other allergy status, other than to drugs and biological substances Complete Blood Count Auto Diff 05/29/24 Z91.09 - Other allergy status, other than to drugs and biological substances RT PSG in-lab sleep study Today G47.19 - Other hypersomnia Referrals Allergy & Immunology Referral J45.909 - Unspecified asthma, uncomplicated, Z91.09 - Other allergy status, other than to drugs and biological substances Cardiology Referral R07.9 - Chest pain, unspecified Coding Level of Care Code New Pt Level 4 (96659) Complex EM visit Add On G2211 Diagnoses Reactive airway disease J45.909 History of pulmonary embolism Z86.711 Environmental allergies Z91.09 Excessive daytime sleepiness G47.19 Chest pain R07.9
[2024-05-29 13:18] VITALS: BP 106/68; PULSE 104; O2SAT 98; BMI 30.5
== END 2024-05-29 14:01 | disposition home or self-care (01) ==
LOC: HO.HPSW 12:48
PROVIDERS: PCP Internal Medicine; Referring Provider Internal Medicine; Visit Provider Nurse Practitioner Family
DX: J45.909 Unspecified asthma, uncomplicated (principal); Z86.711 Personal history of pulmonary embolism; Z91.09 Other allergy status, other than to drugs and biological substances; G47.19 Other hypersomnia; R07.9 Chest pain, unspecified
CPT/HCPCS: 99204; G2211

== ENCOUNTER → 2024-06-14 19:30 | Outpatient (REF) | payer OTHER, SELFPAY ==
--- OUTSIDE RECORDS SUMMARY | 2024-06-14 21:18 | XMS_ITS ---
Author Organization [facility] Address [address] [place] [address] Care Team Providers Care Desulphuring Operator Name Role Phone Ginger ROQUE, Sharon Sewell Primary Care Provider Un available SidTalisha Unavailable [phone] David Garcia [phone] Encounters Encounter Location Date Provider Diagnosis [address] [address] 04/18/2024 David Garcia Plan Of Treatment Next Appt Details Provider Name:Talisha Lau , 07/09/2024 02:00:00 PM, [address] [place] [address], [place], [address], Progress Notes * Naseem ABERNATHY RDOB:[birth year] (28 yo M)Acc No.[id number]:04/18/2024 Progress Notes Patient:?Naseem ABERNATHY Provider:?David Garcia D.P.M. :1995???Age:28 Y???Sex:Male Juan Jose e:04/18/2024 Address:[address] [place] [address] Pcp:Emma Molina Subjective: * Chief Complaints: * ??? * Medical History:? Objective: * Vitals:? Assessment: Plan: * Treatment: * Images: * The named appointment provid er may or may not be the originator of this progress note, and it is not deemed complete until electronically signed by the appointment provider. Sign off status: Pending * Provider:?David Garcia D.P.M. Date:?04/06 Generated for Erendira lopez/Prisca/Humphrey on:?06/14/2024 09:18 PM EDT
--- OUTSIDE RECORDS SUMMARY | 2024-06-14 21:18 | XMS_ITS ---
Author Organization [facility] Address [address] [place] [address] Care Team Providers Care Nut Roaster Helper Name Role Phone Ginger ROQUE, Sharon Sewell Primary Care Provider Un available Talisha Lau Unavailable [phone] Waldemar Neri Unavailable [phone] Encounters Encounter Location Date Provider Diagnosis [facility] [address] [place] [address] 02/20/2024 Waldemar Neri Plan Of Treatment Next Appt Details Provider Name:Talisha Lau , 07/09/2024 02:00:00 PM, [address] [facility], [place], [address], Progress Notes * Naseem ABERNATHY RDOB:[birth year] (28 yo M)Acc No.[id number]:02/20/2024 Progress Notes Patient:?Naseem ABERNATHY Provider:?Waldemar Neri DPM :1995???Age:28 Y???Sex:Male Juan Jose e:02/20/2024 Address:[address] [place] [address] Pcp:Emma Molina Subjective: * Chief Complaints: * ??? * Medical History:? Objective: * Vitals:? Assessment: Plan: * Treatment: * Images: * The named appointment provid er may or may not be the originator of this progress note, and it is not deemed complete until electronically signed by the appointment provider. Sign off status: Pending * Provider:?Waldemar Neri DPM Date:?2023 Generated for Erendira lopez/Prisca/Humphrey on:?06/14/2024 09:18 PM EDT
--- OUTSIDE RECORDS SUMMARY | 2024-06-14 21:19 | XMS_ITS ---
Author Organization [facility] Address [address] [place] [address] Care Team Providers Care Building Construction Engineer Name Role Phone Ginger ROQUE, Sharon Sewell Primary Care Provider Un available SidMaiae Unavailable [phone] David Garcia Unavailable [phone] REASON FOR VISIT CX LUMBER STRAIGHTENED appt Encounters Encounter Location Date Provider Diagnosis [address] [address] 04/11/2024 David Garcia Plan Of Treatment Next Appt Details Provider Name:Talisha Lau , 07/09/2024 02:00:00 PM, [address] [place] [address], [place], [address], Progress Notes * Naseem ABERNATHY RDOB:[birth year] (28 yo M)Acc No.[id number]:04/11/2024 Patient:?Naseem ABERNATHY :1995???Age:28 Y???Sex:Male Address:[address] [place] [address] * true * Date:? Generated for Printi ng/Famadonnag/eTransmitting on:?06/14/2024 09:18 PM EDT
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
--- OUTSIDE RECORDS SUMMARY | 2024-06-14 21:19 | XMS_ITS | Clinical Summary ---
Author Organization [facility] Address [address] [place] [address] Care Team Providers Care Oil Spreader Operator Name Role Phone Unknown Primary Care Provider [...] Department Care Team Description 05/02/2024 Transcribe Orders [facility] [place] [address] [facility] [address] [place] [address] Sharon Miles MD Bilateral pulmonary [...] Description 08/01/2024 8:00 AM EDT Office Visit [facility] [place] [address] [place] [address] Forrest Campos MD [address] [place] [address] Health Maintenance Due Date Last Done Comments [...] age to complete this topic Care Teams Oil Spreader 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
--- OUTSIDE RECORDS SUMMARY | 2024-06-14 21:19 | XMS_ITS | Clinical Summary ---
Author Organization [facility] Address [address] [place] [address] Care Team Providers Care Refinery Technician Name Role Phone Unavailable Primary Care [...]
--- OUTSIDE RECORDS SUMMARY | 2024-06-14 21:19 | XMS_ITS | Clinical Summary ---
Author Organization [facility] Address [address] [place] [address] Care Team Providers Care Litigation Legal Secretary Name Role Phone Unavailable Primary Care Provider [...] age to complete this topic Meningococcal B Vaccine Aged Out No l onger eligible based on patient's age to complete [...]
== END ==
LOC: HO.SL 19:30
PROVIDERS: PCP Internal Medicine; Visit Provider Nurse Practitioner Family
DX: G47.19 Other hypersomnia (principal)
CPT/HCPCS: 95810

== ENCOUNTER → 2024-06-14 22:41 | Outpatient (BNV) | payer OTHER, SELFPAY | PROVIDERS: PCP Internal Medicine; Visit Provider Internal Medicine | DX: G47.10 Hypersomnia, unspecified (principal) | CPT/HCPCS: 95810 ==

== ENCOUNTER 2024-07-05 12:42 | Outpatient (AMB) | payer OTHER, SELFPAY ==
--- NOTE | 2024-07-05 12:47 | A.OFFVIS_ITS ---
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 Sales Consultant Required: No Allergies oxycodone Allergy (Severe, Verified 07/16/24 13:59) Nausea Seasonal Allergies Allergy (Verified 07/16/24 13:59) sneezing Medication List - Last Reconciled 07/05/24 by Ally Leach LPN baclofen 10 mg PO BID betamethasone dipropionate 0.05% 1 appl topical BID 14 days bupropion HCl XL 150 mg PO DAILY chorionic gonadotropin, human - 0.5cc IM 2 x a week; dilute in 5 ml NS - injection should be 1000 units per injection 60 days dextroamphetamine-amphetamine 15 mg ER 1 cap PO QAM dextroamphetamine-amphetamine 5 mg (Adderall) 5 mg PO DAILY escitalopram oxalate 20 mg PO DAILY insulin syringe,safety needle (BD SafetyGlide Insulin Syringe) As directed - for hcg injection lorazepam 2 mg PO BEDTIME PRN metaxalone mg PO ONCE mirtazapine 30 mg PO BEDTIME needle (disp) 18 G (BD Regular Bevel Manns Choice) As directed - draw up testosterone omeprazole 20 mg PO DAILY ondansetron 8 mg PO TID safety needles (Easy Touch FlipLock Needle) As directed - administer testosterone syringe (disposable) (BD Luer-Fuentes Syringe) Testosterone injection weekly tadalafil (Cialis) 5 mg PO DAILY 90 days tadalafil (Cialis) 20 mg PO DAILY PRN 90 days testosterone cypionate (Depo-Testosterone) 120 mg (0.6 mL) subcut QWEEK 4 weeks HPI HPI Discussion of Other Options (Procedures): Details: History of Present Illness The patient is a 28-year-old male presenting with a follow-up evaluation for low back pain with associated sciatica. He describes chronic muscle tension along the spine, notably affecting the upper back, shoulders, neck, hips, and lower back. The patient has been experiencing these symptoms for several years and relies on baclofen at night to manage his pain, allowing for muscle relaxation and sleep. Previous attempts to alleviate the symptoms involved massage therapy, though relief was temporary. The patient is exploring alternative pain management strategies that might help reduce his reliance on baclofen. Pain Description - Onset: Chronic - Quality/Character: Tense muscles, tightness - Primary Location: Upper back, shoulders, neck, hips, lower back - Radiation: Along the spine - Exacerbating Factors: Physical activity - Relieving Factors: Baclofen use at nighttime, massages - Interference: Sleep difficulties, discomfort during daily activities Physical Exam - Appears afebrile. - Alert and oriented. - Mood and affect appropriate. - Follows and participates in conversation appropriately. - Respiratory effort is unlabored. - Able to transition from sit to stand unassisted. - Ambulates with bilaterally normal heel strike and toe off. - Able to stand and walk on toes and heels. Pain Management - Affect: Muscle tension impacts patient's comfort and sleep quality. - Analgesia: Currently using baclofen for muscle relaxation before sleep. - Adverse Effects: Long-term usage of baclofen is suboptimal due to dependency concerns. - Activities of Daily Living: Pain affects sleep and comfort. - Aberrant Drug-Related Behaviors: Chronic use of baclofen noted, advised to decrease usage. 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 Bilateral pulmonary embolism Elevated serum creatinine At risk for sexually transmitted disease due to partner with multiple partners Chronic heartburn Cervicalgia Lumbago of lumbar region with sciatica Chronic pain of both feet Hyperlipidemia History of chlamydia Witnessed apneic spells Erectile dysfunction History of COVID-19 Lumbar degenerative disc disease PTSD (post-traumatic stress disorder) Lumbar disc disease with radiculopathy ADD (attention deficit disorder) Surgical History No pertinent past surgical history Social History Housing: Apartment Patient Tobacco Use Status: Never used Tobacco e-Cigarette/Vaping Use: Never Used service: Yes Current occupational status: employed Cognitive needs: No Hearing needs: No Vision needs: No Physical Exam Vital Signs: Last Vital Signs Pulse 100 07/05/24 12:48 Resp 16 07/05/24 12:48 BP 138/67 07/05/24 12:48 Pulse Ox 96 07/05/24 12:48 Oxygen Delivery Method Room Air 07/05/24 12:48 BMI result Body Mass Index 30.1 Assessment & Plan Assessment & Plan (1) Lumbago of lumbar region with sciatica: Code(s): M54.40 - Lumbago with sciatica, unspecified side Category: Medical (2) Chronic pain: Code(s): G89.29 - Other chronic pain Category: Medical Plan Plan - Continue baclofen for short-term relief; encourage reduced dependency. - Explore implantable and consumer-based pain management devices. - Caution patient against heavy physical activity, emphasizing potential device impact. - Schedule follow-up visits for device management and dressing care. Patient was informed and verbally consented to the use of an ambient scribe for clinic note documentation during this visit. Discussion Notes During our discussion, I emphasized the challenges of long-term baclofen usage given potential dependency issues. We reviewed alternative strategies like the SPR Implantable Device, which may help manage the chronic pain stemming from muscle tension by breaking the pain cycle. I explained the procedure including the risks of device migration without significant activity modification. The potential for a consumer-based neurostimulation device was also discussed, emphasizing the trial nature and potential benefits. I further advised against nerve-burning techniques due to age-related risks. The patient was agreeable to exploring these new strategies and acknowledged understanding of the instructions provided. We discussed the supportive role of the and other health insurance coverage possibilities for the proposed treatments. Continual assessment and management of his condition will be carried out in subsequent appointments. Patient Instructions - Continue using baclofen at night but aim to gradually decrease reliance. - Review information on the SPR device and consider trial usage. - Consider trying the trial consumer-based neurostimulation device for muscle relief. - Avoid strenuous activity to prevent complications with future devices. - If dressing needs changing, schedule appointments if unable to arrange assistance. - Maintain follow-up appointments for evaluation and management of condition. - Report any discomfort or complications to clinic promptly. Medications: New baclofen 10 mg PO BID 60 tabs 3RF Coding Level of Care Code Est Pt Level 3 (28651) Diagnoses Lumbago of lumbar region with sciatica M54.40 Chronic pain G89.29
[2024-07-05 12:48] VITALS: BP 138/67; PULSE 100; RESP 16; O2SAT 96; BMI 30.1
--- OUTSIDE RECORDS SUMMARY | 2024-07-05 13:07 | XMS_ITS ---
Author Organization [facility] Address [address] [place] [address] Care Team Providers Care Emergency Registrar Name Role Phone Ginger ROQUE, Sharon Sewell Primary Care Provider Un available Sid Talisha Unavailable [phone] David Garcia Unavailable [phone] Encounters En[facility] [address] [facility]/18/[facility]24 David Garcia Plan Of Treatment Next Appt Details Provider Name:Talisha Lau , 07/09/2024 02:00:00 PM, [address] [place] [address], [address], Progress Notes * Naseem ABERNATHY RDOB:[birth year] (28 yo M)Acc No.[id number]:04/18/2024 Progress Notes Patient:?Naseem ABERNATHY Provider:?David Garcia D.P.M. :1995???Age:28 Y???Sex:Male Juan Jose e:04/18/2024 Address:[address] [place], [place] [address] Pcp:Emma Molina Subjective: * Chief Complaints: * ??? * Medical History:? Objective: * Vitals:? Assessment: Plan: * Treatment: * Images: * The named appointment provid er may or may not be the originator of this progress note, and it is not deemed complete until electronically signed by the appointment provider. Sign off status: Pending * Provider:?Elias StallingsPShadi Date:?04/06 Generated for Erendira lopez/Prisca/Humphrey on:?07/05/2024 01:07 PM EDT
--- OUTSIDE RECORDS SUMMARY | 2024-07-05 13:07 | XMS_ITS | Patient Health Record ---
Author Organization [facility] Address [address] [place] [address] Care Team Providers Care Security Shift Supervisor Name Role Phone Ginger ROQUE, Sharon Sewell Primary Care Provider Un available Talisha Lau Unavailable [phone] Waldemar Neri Unavailable [phone] David Garcia Unavailable [phone] Reason For Referral Diagnosis 1 Pain in unspecified foot (M79.673) Referring Provider First Name Sharon Decker Referring Provider Last Name Ginger Referring Provider Speciality Internal M edicine [facility] Referred Provider Talisha Lau Referred Address [address] [place], [place],[address], Referred Provider Specialty Podiatry Referral Priority Routine Social History Tobacco Use: Social History Observation Description Date Details (start date - stop date) Never Smoker NA - NA Tobacco use other than smoking: Question Answer Notes Are you an other tobacco user? No Tobacco Control (Standard) Question Answer Notes Tobacco use: Nonsmoker AUDIT-C (Standard) Question Answer Notes Did you have a drink containing alcohol in the p ast year? No Points 0 Interpretation Negative Encounters Encounter Location Date Provider Diagnosis [address] [address] 02/05/[address] [address] 02/15/[address] [facility] [address] 04/11/2024 David Garcia [facility] [address] [place] [address] 07/02/2024 Talisha Lau Plan Of Treatment Next Appt Details Provider Name:Talisha Lau , 07/09/2024 02:00:00 PM, [address], [place], [address], Insurance Providers Payer Name Payer Address Payer Phone Subscriber Number Group Number Insured Name Patient Relationship to Insured Coverage Start Date Coverage End Date [facility] [address] [place] [address] [id number] Naseem Aguilar Self - patient is the insured Medical (General) History Medical History History ICD Code Anxiety Back,Hip,and Knee pain covid-19 Depression Headaches/Migraines Reflux ( GERD) Sciatica Vascular phlebitis (clots)
--- OUTSIDE RECORDS SUMMARY | 2024-07-05 13:08 | XMS_ITS | Continuity of Care Document ---
Author Name [facility] Organization [facility] Care Team Providers Care Senior Lead Project Manager Name Role Phone [facility] Unavailable Unavailable Problems Combined list of problems [...] ORAL, MALLINKRT PHARM, 100 ea. BOTTLE Active [id number] 4 2023 60 Pharmac y Data Transac tion Service Facilit y CLOMID (clomiphene citrate), 50 MG, TABLET, ORAL, FANTA PHARMAC, 30 ea. BLIST PACK Cancele d [id number] : 2023 0 Pharmac y Data Transac tion Service Facilit y CLOMID (clomiphene citrate), 50 MG, TABLET, ORAL, FANTA PHARMAC, 30 ea. BLIST PACK Active [id number] 2023 14 Pharmac y Data Transac tion Service Facilit y CLOMID (clomiphene citrate), 50 MG, TABLET, ORAL, FANTA PHARMAC, 30 ea. BLIST PACK Active [id number] 2023 14 Pharmac y Data Transac tion Service Facilit y CLOMID (clomiphene citrate), 50 MG, TABLET, ORAL, FANTA PHARMAC, 30 ea. BLIST PACK Active [id number] 4 2023 14 Pharmac y Data Transac tion Service Facilit y CLOMID (clomiphene citrate), 50 MG, TABLET, ORAL, FANTA PHARMAC, 30 ea. BLIST PACK Active [id number] 4 2023 14 Pharmac y Data Transac tion Service Facilit y DEX/AMPHET (ADDERALL XR EQ) 15 MG CP24 Take or use exactly as directed .May impair driving. This prescrip tion cannot be refilled .Federal law prohibit s transfer of prescrip tion. 02/18/2024 [id number] 4 [address] [place] [address] DEX/AMPHET (ADDERALL XR EQ) 15 MG CP24 Take or use exactly as directed .May impair driving. This prescrip tion cannot be refilled .Federal law prohibit s transfer of prescrip tion. 12/13/2023 [id number] 4 [address] [place] [address] Dextroamphe tamine Saccharate, Amphetamine Aspartate, Dextroamphe tamine Sulfate and Amphetamine Sulfate ([employer] 100 TABLET in 1 BOTTLE Active [id number] 06/14/19 2 4 2023 60 Pharmac y Data Transac tion Service Facilit y Dextroamphe tamine Saccharate, Amphetamine Aspartate, Dextroamphe tamine Sulfate and Amphetamine Sulfate ([employer] 100 TABLET in 1 BOTTLE Cancele d [id number] : 2023 0 Pharmac y Data Transac tion Service Facilit y DULOXETINE HCL (duloxetine HCl), 20 MG, CAPSULE , ORAL, AJANTA PHARMA L, 60 ea. BOTTLE Active [id number] 4 2023 30 Pharmac y Data Transac tion Service Facilit y DULOXETINE HCL (duloxetine HCl), 20 MG, CAPSULE , ORAL, AJANTA PHARMA L, 60 ea. BOTTLE Active [id number] 2023 30 Pharmac y Data Transac tion Service Facilit y DULOXETINE HCL (duloxetine HCl), 20 MG, CAPSULE , ORAL, AJANTA PHARMA L, 60 ea. BOTTLE Active [id number] 2023 30 Pharmac y Data Transac tion Service Facilit y Meloxicam (Meloxicam) , 15mg, Tablet, Oral, Unichem Pharmac, 1000 Ea. Bottle Cancele d [id number] : 2023 0 Pharmac y Data Transac tion Service Facilit y METHOCARBAM OL (methocarba mol), 750 MG, TABLET, ORAL, GRANULES PHARMA, 100 ea. BOTTLE Active [id number] 2023 42 Pharmac y Data Transac tion Service Facilit y MIRTAZAPINE (MIRTAZAPIN E), 30MG, TABLET, ORAL, CARACO PHARM, 30 ea. BOTTLE Cancele d [id number] : 2023 0 Pharmac y Data Transac tion Service Facilit y ONDANSETRON ODT (ONDANSETRO N), 8 MG, TAB RAPDIS, ORAL, AUROBINDO PHARM, 30 ea. BLIST PACK Active [id number] 2023 30 Pharmac y Data Transac tion Service Facilit y TRAZODONE HCL (trazodone HCl), 50 MG, TABLET, ORAL, TEVA [place], 100 ea. BOTTLE Cancele d [id number] : 2023 0 Pharmac y Data Transac tion Service Facilit y TRAZODONE HCL (trazodone HCl), 50 MG, TABLET, ORAL, TEVA [place], 100 ea. BOTTLE Active [id number] 2023 30 Pharmac y Data Transac tion Service Facilit y TRAZODONE HCL (trazodone HCl), 50 MG, TABLET, ORAL, TEVA [place], 100 ea. BOTTLE Active [id number] 2023 60 Pharmac y Data Transac tion Service Facilit y TRAZODONE HCL (trazodone HCl), 50 MG, TABLET, ORAL, TEVA [place], 100 ea. BOTTLE Active [id number] 2023 30 Pharmac y Data Transac [...] Site Reaction Lot Number CVX Code Drug Financial Analysis Advisor Status Comments Source Influenza, injectable, quadrivalent, preservative free 0 2021 [id number] [facility] [employer] [facility] (SKB) complet ed Influenza , injectabl e, quadrival ent, preservat maritza free DoD typhoid Vi capsular polysaccharid e vaccine 2 2021 [id number] Sanofi Pasteur ([facility]) complet ed typhoid Vi capsular polysacch aride vaccine DoD meningococcal polysaccharid e (groups A, C, Y and W-135) diphtheria toxoid conjugate vaccine (MCV4P) 2 2021 [id number] Sanofi Pasteur ([facility]) complet ed meningoco ccal polysacch aride (groups A, C, Y and W-135) diphtheri a toxoid conjugate vaccine (MCV4P) DoD Human Papillomaviru s 9-valent vaccine 2 2021 [id number] 165 Merck (MSD) complet ed Human Papilloma virus 9-valent vaccine DoD SARS-COV-2 (COVID-19) vaccine, mRNA, spike protein, LNP, preservative free, 100 mcg or 50 mcg dose 3 2021 [id number] 207 Today Tixa [employer] Inc[employer] (MOD) complet ed SARS-COV- 2 (COVID-19 ) vaccine, mRNA, spike protein, LNP, preservat maritza free, 100 mcg or 50 mcg dose DoD Influenza, injectable, quadrivalent, preservative free 7 2020 [id number] 150 SmithKline (SKB) complet ed Influenza , injectabl e, quadrival ent, preservat maritza free DoD SARS-COV-2 (COVID-19) vaccine, mRNA, spike protein, LNP, preservative free, 100 mcg or 50 mcg dose 2 2020 [id number] 207 Today Tixa US, Inc. (MOD) complet ed SARS-COV- 2 (COVID-19 ) vaccine, mRNA, spike protein, LNP, preservat maritza free, 100 mcg or 50 mcg dose DoD SARS-COV-2 (COVID-19) vaccine, mRNA, spike protein, LNP, preservative free, 100 mcg or 50 mcg dose 1 2020 [id number] 207 Moderna [employer]. (MOD) complet ed SARS-COV- 2 (COVID-19 ) vaccine, mRNA, spike protein, LNP, preservat maritza free, 100 mcg or 50 mcg dose DoD Influenza, injectable, quadrivalent, preservative free 0 2019 [id number] 150 Seqirus (SEQ) complet ed Influenza , injectabl e, quadrival ent, preservat maritza free DoD typhoid Vi capsular polysaccharid e vaccine 1 2018 [id number] 101 Sanofi Pasteur (PMC) complet ed typhoid Vi capsular polysacch aride vaccine DoD Human Papillomaviru s 9-valent vaccine 1 2018 [id number] 165 Merck (MSD) complet ed Human Papilloma virus 9-valent vaccine DoD Influenza, injectable, quadrivalent, preservative free 0 2018 [id number] 150 Seqirus (SEQ) complet ed Influenza , injectabl e, quadrival ent, preservat maritza free DoD Influenza, injectable, quadrivalent, preservative free 0 2017 [id number] 150 Seqirus (SEQ) comple t ed Influenza , injectabl e, quadrival ent, preservat maritza free DoD Vietnamese Encephalitis vaccine for intramuscular administratio n 3 2017 [id number] 134 Valneva (ERICA) complet ed Vietnamese Encephali tis vaccine for intramusc ular administr ation DoD influenza, injectable, quadrivalent, contains preservative 3 2016 [id number] 158 [employer] (B) complet ed influenza , injectabl e, quadrival ent, contains preservat maritza DoD Vietnamese Encephalitis vaccine for intramuscular administratio n 2 2016 [id number] 134 Valneva (ERICA) complet ed Vietnamese Encephali tis vaccine for intramusc ular administr ation DoD hepatitis A and hepatitis B vaccine 3 2015 [id number] 104 [employer] (SKB) complet ed hepatitis A and hepatitis B vaccine DoD Vietnamese Encephalitis vaccine for intramuscular administratio n 1 2015 [id number] 134 [employer] (INT) complet ed Vietnamese Encephali tis vaccine for intramusc ular administr ation DoD Influenza, seasonal, injectable, preservative free 0 2015 [id number] 140 Seqirus (SEQ) comple t ed Influenza , seasonal, injectabl e, preservat maritza free DoD measles, mumps and rubella virus vaccine 2 2015 [id number] 03 Merck (MSD) complet ed measles, mumps and rubella virus vaccine DoD hepatitis A and hepatitis B vaccine 1 2015 [id number] 104 [employer] (SKB) complet ed hepatitis A and hepatitis B vaccine DoD measles, mumps and rubella virus vaccine 1 2015 [id number] 03 Merck (MSD) complet ed measles, mumps and rubella virus vaccine DoD hepatitis A and hepatitis B vaccine 1 2015 [id number] 104 [employer] (SKB) complet ed hepatitis A and hepatitis B vaccine DoD poliovirus vaccine, inactivated 1 2015 [id number] 10 Sanofi Pasteur (PMC) complet ed polioviru s vaccine, inactivat ed DoD meningococcal polysaccharid e (groups A, C, Y and W-135) diphtheria toxoid conjugate vaccine (MCV4P) 1 2015 [id number] 114 Sanofi Pasteur (PMC) complet ed meningoco ccal polysacch aride (groups A, C, Y and W-135) diphtheri a toxoid conjugate vaccine (MCV4P) DoD tetanus toxoid, reduced diphtheria toxoid, and acellular pertu is vaccine, adsorbed 1 2015 [id number] 115 SmithLamar (SKB) complet ed tetanus toxoid, reduced diphtheri a toxoid, and acellular pertussis vaccine, adsorbed DoD Adenovirus, type 4 and type 7, live, oral 1 2015 [id number] 143 [facility] (BRR) complet ed Adenoviru s, type 4 and type 7, live, oral [facility] influenza, injectable, quadrivalent, contains preservative 1 2015 [id number] 158 [employer] (SKB) complet ed influenza , injectabl e, quadrival ent, contains preservat maritza DoD mumps virus vaccine 0 2015 07 () Not Given mumps virus vaccine [facility] varicella virus vaccine 0 2015 21 () Not Given varicella virus vaccine DoD Encounters Combined list of: 1) Encounters from Department of Veterans Affairs facilities going backup to the last 18 months, not all VA inpatient encounters are included; 2) Encounters from the Department of Defense facilities going backup to 280 months. Location Location Details Encounter Type Encounter Number Reason For Visit Attending Provider ADM Date DC Date Status Disposition Source [place] [address](Mitch matology Surgery, [facility]) OUTPATIENT [id number] NERY Smalls 06/29 Released w/o Limitations [facility] [place] [address]([address] [facility]) [place] [address]([facility]) OUTPATIENT [id number] Notes Entered by: LAURA WALKER 01 Jul 2015 1019 ------- ------- ------- ------- -- Strep Prophyl axis JACQUELINE WALKER 06/30 Released w/o Limitations [facility] [place] [address]([facility] d) [place] [address](Hea ring Conservat ion, BMT) OUTPATIENT [id number] FLIP KWAN 07/02 Released w/o Limitations [facility] [place] [address](H earing Conserv ation, BMT) [place] [address](ATR 323 TRS,BMT) OUTPATIENT [id number] Notes Entered by: MARKY HASSAN 09 Jul 2015 1339 ------- ------- ------- ------- -- [facility] lower leg pain MIGUEL PETERSON 07/08 Released with Work/Duty Limitations [facility] [place] [address](A TR 323 TRS,BMT ) [place] [address](ATR 323 TRS,BMT) OUTPATIENT [id number] Notes Entered by: MARKY HASSAN DO A 10 Jul 2015 1020 ------- ------- ------- ------- -- TALHA SIMON PT 07/09 [facility]/Duty [facility] [place] [place] [address](A TR 323 TRS,BMT ) [place] [address](MAS Alpha) OUTPATIENT [id number] Notes Entered by: Casey WELCH 11 Aug 2015 1212 ------- ------- ------- ------- -- cold pack SUNDEEP WELCH 08/10 [facility] Limitations [facility] [place] [place] [address](M Alpha) [place]([facility] OUTPATIENT [id number] B ASHU DEE 08/31 Released with Work/Duty Limitations [place] [place]) [place] OUTPATIENT [id number] PFB ASHU DEE 09/30 Released w/o Limitations [place] [id number] POSSIBL TENNILLE FRANKLIN 10/05 Released w/o Limitations [place] Occupatio nal Health) OUTPATIENT [id number] [facility] Released [place] Limitations [place] Occupat ional Health) [place] Hearing Conservat ion) OUTPATIENT [id number] audio +sts right WINTER WIN 10/26 Released [place]/o Limitations [place] Hearing Conserv ation) [place] Hearing Conservat ion) OUTPATIENT [id number] audio WINTER WIN 10/27 Released w/o Limitations [place] Hearing Conserv ation) [place] Readiness Center) OUTPATIENT [id number] OSS/JAP AN CITIZEN [place] 11/10 [place] Limitations [place] Readine ss Center) [place]) OUTPATIENT [id number] f/u Bilater al Foot Pain TENNILLE CASSIDY 11/11 Released with Work/Duty Limitations [place]) [place]) OUTPATIENT [id number] PFB ASHU DEE 11/30 Released w/o Limitations [place]) [facility](K a Medical In-Out Processin g) TELE CONSULT [id number] Notes Entered by: ASHU ACUÑA 03 Feb 2016 1205 ------- ------- ------- ------- -- Medical Inproce ssing ASHU ACUÑA 02/02 Other Not Elsewhere Classified [facility] ( Medical In-Out Process ing) [facility](K a [facility]) OUTPATIENT [id number] initial eric ho and plantar fasciti GEGE Storey 02/07 Released w/o Limitations [facility] ([facility]) [facility](P odiatry Clinic) OUTPATIENT [id number] Plantar fascial fibroma PAT Guevara 03/23 Released w/o Limitations [facility] (Podiat ry Clinic) [facility](K a [facility]) OUTPATIENT [id number] neck and back px7/10 alexander t x3SID Navarro 03/24 Released w/o Limitations [facility] ([facility]) [facility]) TELE CONSULT [id number] Notes Entered by: DAYLIN CERVANTES 25 Mar 2016 1037 ------- ------- ------- ------- -- RAD results SANTINO MULLER 03/25 [facility] ([facility]) [facility]) OUTPATIENT [id number] stress managem ent/ref erral from JASON ROLON 03/28 Released w/o Limitations [facility] ([facility]) [facility]) OUTPATIENT [id number] RAD results f/u SID JOHNSON 03/30 Released w/o Limitations [facility] ([facility]) [facility]) TELE CONSULT [id number] Notes Entered by: GAGE MURCIA 05 Apr 2016 1323 ------- ------- ------- ------- -- PHAQ PRIORIT Y ITEM SANTINO MULLER 04/05 [facility] ([facility]) [facility]) OUTPATIENT [id number] routine /IMR TOBIN FRAGA 04/07 Released w/o Limitations [facility] ( Optomet ry Clinic) [facility]) OUTPATIENT [id number] f/u JASON GUERRA 04/11 Released w/o Limitations [facility] ([facility]) [facility] Hearing Conservat ion) OUTPATIENT [id number] Notes Entered by: WOLFGANG FERNANDEZ 15 Apr 2016 1412 ------- ------- ------- ------- -- AUDIOGR RAGHAV HENRY 04/15 Released w/o Limitations [facility] ( Hearing Conserv ation) [facility] Physical Therapy Clinic) OUTPATIENT [id number] radha Velazquez TYLER B 04/18 Released with Work/Duty Limitations [facility] ( Physica l Therapy Clinic) [facility]) TELE CONSULT [id number] Notes Entered by: BANDAR VEGA 18 Apr 2016 1401 ------- ------- ------- ------- -- [facility] CARSON Emma 04/18 [facility] ([facility]) [facility]) OUTPATIENT [id number] eladia holt ZAK RANDALL M 04/19 Released w/o Limitations [facility] ([facility]) [facility]) OUTPATIENT [id number] Notes Entered by: DENISSE HERNANDEZ 05 May 2016 1300 ------- ------- ------- ------- -- MARKUS Gonzalez 05/05 Released w/o Limitations [facility] ([facility]) [facility]) OUTPATIENT [id number] THI NESS 05/11 Released w/o Limitations [facility] ( Physica l Therapy Clinic) [facility]) OUTPATIENT [id number] GARRY MILLER 05/12 Released w/o Limitations [facility] ([facility]) [facility]) OUTPATIENT [id number] THI NESS 05/16 Released w/o Limitations [facility] ( Physic l Therapy Clinic) [facility]) TELE CONSULT [id number] Notes Entered by: Cheryl GAO 20 May 2016 0732 ------- ------- ------- ------- -- vomit, cold sweats, has had little waterxl ess then 12 hours SANTINO MULLER 05/[address] [facility]) OUTPATIENT [id number] throwin g up SANTINO MULLER 05/20 Released w/o Limitations [facility] ([facility]) [facility]) OUTPATIENT [id number] THI NESS DUZON 05/22 Released w/o Limitations [facility] ( Physic l Therapy Clinic) [facility]) OUTPATIENT [id number] Tidd resched ule/rebeca ulder px 08/13/ hand px 08/13 x almost 1 yr SANTINO MULLER B 05/25 Released w/o Limitations [facility] ([facility]) [facility]) OUTPATIENT [id number] THI NESS DUZON 05/29 Released w/o Limitations [facility] ( Physic l Therapy Clinic) [facility]) OUTPATIENT [id number] Notes Entered by: GUALBERTO HUBER 30 May 2016 0833 ------- ------- ------- ------- -- [facility] CARINA ALEX 05/29 Released w/o Limitations [facility] ([facility]) [facility]) OUTPATIENT [id number] BILLY DON 06/01 Released w/o Limitations [facility] ( Physic l Therapy Clinic) [facility]) TELE CONSULT [id number] Notes Entered by: Alfonso SHANE 28 Jul 2016 1043 ------- ------- ------- ------- -- STD Ivis lopez ([facility]) KAYLIE EVANS 07/28 Referred for Appointment [facility] ([facility]) [facility]) OUTPATIENT [id number] Notes Entered by: DENISSE HERNANDEZ 28 Jul 2016 1334 ------- ------- ------- ------- -- LIZ Watson 07/28 Released w/o Limitations [facility] ([facility]) [facility]) TELE CONSULT [id number] SANTINO MULLER 08/05 [facility]) OUTPATIENT [id number] f/u back SID JOHNSON T 08/08 Released with Work/Duty Limitations [facility] ([facility]) [facility]) OUTPATIENT [id number] ER f/u for Edema MARIA M JOHNSONSHUA T 09/12 Released w/o Limitations [facility] ([facility]) [facility]) TELE CONSULT [id number] Notes Entered by: Joe WILSON 03 Oct 2016 0909 ------- ------- ------- ------- -- rash on chest,r ed, [place](l ook like acne) x2days SANTINO MULLER 10/03 [facility] ([facility]) [facility]) TELE CONSULT [id number] Notes Entered by: NICOLAS HOOK 11 Oct 2016 0817 ------- ------- ------- ------- -- Early STI F/U JUD CURRY 10/10 [facility] ([facility]) [facility]) TELE CONSULT [id number] Notes Entered by: SID JOHNSON 26 Oct 2016 0847 ------- ------- ------- ------- -- F/u apt for MRI review REBEL GONZALEZ 10/25 Referred for Appointment [facility] ([facility]) [facility]) OUTPATIENT [id number] MRI review SID JOHNSON 11/04 Released with Work/Duty Limitations [facility] ([facility]) [facility]) OUTPATIENT [id number] Notes Entered by: Emma BURNETT 10 Nov 2016 1328 ------- ------- ------- ------- -- KAMLESH Gu 11/10 Released w/o Limitations [facility] ([facility]) [facility]) OUTPATIENT [id number] rash on back, red, raised, no improve ment over past 2wks DEAN GALLAGHER 12/19 Released w/o Limitations [facility] ([facility]) [facility]) OUTPATIENT [id number] Ref to chiropr BRADLY Prater 01/31 Released w/o Limitations [facility] ([facility]) [facility]) TELE CONSULT [id number] Notes Entered by: Joe WILSON 09 Mar 2017 1506 ------- ------- ------- ------- -- Profile JONASDianVERÓNICA MARIALUISA HALINAOLADE 03/09 Other Not Elsewhere Classified [facility] ([facility]) [facility]) TELE CONSULT [id number] Notes Entered by: Joe WILSON 23 Mar 2017 1315 ------- ------- ------- ------- -- SYMP- sore throat, headach es,body px,chil ls,DARINEL Lynn 03/23 Advice Assessment [facility] ([facility]) [facility]( a Hearing Conservat ion) OUTPATIENT [id number] Notes Entered by: TAMIKO WILSON 27 Mar 2017 1111 ------- ------- ------- ------- -- AUDIOGR AM TAMIKO WILSON 03/27 Released w/o Limitations [facility] ( Hearing Conserv ation) [facility](K a Hearing Conservat ion) TELE CONSULT [id number] Notes Entered by: TAMIKO WILSON 27 Mar 2017 1112 ------- ------- ------- ------- -- OHA LABS TAMIKO WILSON 03/27 Referred for Appointment [facility] ( [facility]) [facility]) TELE CONSULT [id number] Notes Entered by: JR ORTIZ 27 Mar 2017 1119 ------- ------- ------- ------- -- STI - Confide nce Check JUD CURRY 03/27 Other Not Elsewhere Classified [facility] ([facility]) [facility]( a [facility]) OUTPATIENT [id number] Notes Entered by: Emma BURNETT TTRegina 27 Mar 2017 1208 ------- ------- ------- ------- -- Sent by Public Health BRADLY FRENCH 03/27 Released w/o Limitations [facility] ([facility]) [facility](K a Physical Therapy Clinic) OUTPATIENT [id number] Kevin velasco, right side BILLY DON 03/28 Released with Work/Duty Limitations [facility] ( Physica l Therapy Clinic) [facility] [facility]) OUTPATIENT [id number] Notes Entered by: Regina ORTEGA 11 Apr 2017 1558 ------- ------- ------- ------- -- Audiogr BHAVNA Cordova 04/11 Released w/o Limitations [facility]) OUTPATIENT [id number] f/u hearing non flyer RICKY GEE 04/14 Released w/o Limitations [facility] ( Aerospa ce Medicin e Clinic) [facility]) OUTPATIENT [id number] JOCELINE CERVANTES 05/14 Released w/o Limitations [facility] ( Physica l Therapy Clinic) [facility] Chiroprac tic Clinic) OUTPATIENT [id number] Lumbago with sciatic a, right side SIMMSRIAN WILSON L 05/16 Released w/o Limitations [facility] ([facility] Chiropr actic Clinic) [facility]( udiology Clinic) OUTPATIENT [id number] Unspeci fied hearing loss, left ear JOCELINE AKERS 05/17 Released w/o Limitations [facility] (Audiol ogy Clinic) [facility]) OUTPATIENT [id number] JOCELINE CERVANTES 05/21 Released w/o Limitations [facility] ( Physica l Therapy Clinic) [facility]) OUTPATIENT [id number] Notes Entered by: Joe WILSON 22 May 2017 1138 ------- ------- ------- ------- -- *cough, loss appetit e,sweat s,chill s*[phone]* BRADLY FRENCH 05/22 Released w/o Limitations [facility] ([facility] BG) [facility]) OUTPATIENT [id number] JOCELINE CERVANTES 05/28 Released w/o Limitations [facility] ( Physica l Therapy Clinic) [facility]) OUTPATIENT [id number] OHA SAHIL BROTHERS 05/31 Released w/o Limitations [facility] ([facility]) [facility] Chiropra tic Clinic) OUTPATIENT [id number] RIAN SIMMS 06/01 Released w/o Limitations [facility] ([facility] Chiropr actic Clinic) [facility]) OUTPATIENT [id number] OHA f/u RANDALL CRESPO 06/05 Released w/o Limitations [facility] ([facility]) [place] Chiropra [facility]ic [facility]) OUTPATIENT [id number] RIAN SIMMS 06/13 Released w/o Limitations [place] [facility] ([facility] Chiroor actic Clinic) [facility]) OUTPATIENT [id number] Notes Entered by: LUI SCHWARZ 16 Jun 2017 1433 ------- ------- ------- ------- -- Annual MHA-P JIN SCHWARZ 06/16 Released w/o Limitations [facility] ([facility]) [facility]) OUTPATIENT [id number] Notes Entered by: GUALBERTO HUBER 19 Jun 2017 0845 ------- ------- ------- ------- -- TRI SERVICE PHA / *LTB BRADLY FRENCH 06/18 Released w/o Limitations [facility] ([facility]) [place] [facility] Chiropra tic Clinic) OUTPATIENT [id number] RIAN SIMMS 07/12 Released w/o Limitations [facility] ([facility] Chiroor actic Clinic) [facility]) OUTPATIENT [id number] back pain and foot pain BRADLY FRENCH 08/02 Released w/o Limitations [facility] ([facility]) [place] [facility] Chiropra tic Clinic) OUTPATIENT [id number] RIAN SIMMS 08/15 Released w/o Limitations [place] [facility] ([facility] Chiropr actic Clinic) [facility]) OUTPATIENT [id number] RIAN SIMMS 08/31 Released w/o Limitations [place] [facility] ([facility] actic Clinic) [facility] A Team) OUTPATIENT [id number] Notes Entered by: Emma BURNETT 10 Jan 2018 0725 ------- ------- ------- ------- -- JUNIOR [place] 01/09 Released with Work/Duty Limitations [facility] ([facility] A Team) [facility] D Team) TELE CONSULT [id number] Notes Entered by: RA URBAN PERKINS 10 Jan 2018 0816 ------- ------- ------- ------- -- Confide GERARDO Andrews 01/09 Other Not Elsewhere Classified [facility] ([facility] D Team) [facility] BGAB) OUTPATIENT [id number] injured my back (again) was told to make an appoint ment by kush shearer KEREN WALDEN Casey 02/02 Released with Work/Duty Limitations [facility] ([facility] BGAB) [facility] BGAB) TELE CONSULT [id number] Notes Entered by: BRIE MIN 23 Feb 2018 1355 ------- ------- ------- ------- -- PRO:Ext landy/ [phone]/ JOCELINE VELASQUEZ 02/23 Other Not Elsewhere Classified [facility] ([facility] BGAB) [place] [facility](P hysical Therapy Clinic) OUTPATIENT [id number] Low back pain ERICK BRENNAN 03/08 Released w/o Limitations [facility] (Physic al Therapy [facility]) [place]P hysical Therapy Clinic) OUTPATIENT [id number] 1 of 4 CATALINA MCDERMOTT 03/16 Released with Work/Duty Limitations [place]) [place]([facility] Chiroprac tic Clinic) OUTPATIENT [id number] RIAN SIMMS 03/19 Released w/o Limitations [place] ([facility] Chiropr actic Clinic) [facility] BGAB) TELE CONSULT [id number] Notes Entered by: ARELY SAUNDERS 28 Mar 2018 1224 ------- ------- ------- ------- -- pro;upd ate,/48 [phone] SRINIVAS JOCELINE 03/28 Other Not Elsewhere Classified [facility] ([facility]) [facility](P hysical Therapy Clinic) OUTPATIENT [id number] 2/4 IMELDA CISNEROS 03/30 Released with Work/Duty Limitations [facility] (Physic al Therapy Clinic) [facility]) OUTPATIENT [id number] skin issue, acne, initial appt BRADLY FRENCH 04/02 Released w/o Limitations [facility] ([facility]) [facility]) TELE CONSULT [id number] Notes Entered by: JARRETT CALIX 06 Apr 2018 1526 ------- ------- ------- ------- -- [place] Labs DREAD CALIX 04/06 Referred for Appointment [facility] ([facility]) [facility](P hysical Therapy Clinic) OUTPATIENT [id number] 4 ASUNCION POST 04/11 Released w/o Limitations [facility] (Physic al Therapy Clinic) [facility]) OUTPATIENT [id number] Notes Entered by: JARRETT CALIX 13 Apr 2018 0822 ------- ------- ------- ------- -- Audiogr am DREAD CALIX 04/12 Released w/o Limitations [facility] ( Hearing Conserv ation) [facility](P hysical Therapy Clinic) OUTPATIENT [id number] 4/ CATALINA MCDERMOTT 04/20 Released with Work/Duty Limitations [facility] (Physic al Therapy Clinic) [facility](P hysical Therapy Clinic) OUTPATIENT [id number] LBP F/u ERICK BRENNAN 05/01 Released w/o Limitations [place] [place] [facility]) [place]) OUTPATIENT [id number] 1/ MATTHEW LLAMAS 05/09 Released w/o Limitations [facility] ( Physica l Therapy Clinic) [place]) OUTPATIENT [id number] SAHIL BLANCO 05/10 Released w/o Limitations [facility] ([facility]) [place] Chiroprac tic Clinic) OUTPATIENT [id number] RIAN SIMMS 06/01 Released w/o Limitations [facility] ([facility] Chiropr actic Clinic) [place](K [facility]) OUTPATIENT [id number] Notes Entered by: PETR THAPA 12 Jun 2018 1426 ------- ------- ------- ------- -- TRI SERVICE KAUSHAL/ASHU PRICE 06/12 Released w/o Limitations [facility] ([facility]) [place] ans[facility] Physical Therapy) OUTPATIENT [id number] ERICK BRENNAN 06/27 Released w/o Limitations [facility] ([place] [facility] ) [facility] Physical Therapy Clinic) OUTPATIENT [id number] MATTHEW Raya 06/27 Released w/o Limitations [facility] ( Physica l Therapy Clinic) [place] OUTPATIENT [id number] MATTHEW Raya 07/08 Released w/o Limitations [place] [facility] ([facility]) [place]) OUTPATIENT [id number] f/u LBP ERICK BRENNAN 07/11 Released w/o Limitations [facility] ( Physica l Therapy Clinic) [place](K [facility] D Team) OUTPATIENT [id number] Bilat foot pain x2 weeks JOSE CARTY 08/21 Released w/o Limitations [facility] ([facility] D Team) [place]( odiatry Clinic) OUTPATIENT [id number] Plantar fascial fibroma tosis GURJIT HARVEY 09/19 Released w/o Limitations [facility] (Podiat ry Clinic) [facility]) OUTPATIENT [id number] concent ration issues CLAYTON WESTBROOK 10/08 Released w/o Limitations [facility] ([facility]) [facility](P odiatry Clinic) OUTPATIENT [id number] F/U L toenail removal GURJIT HARVEY 10/08 Released w/o Limitations [facility] (Podiat ry Clinic) [facility] A Team) OUTPATIENT [id number] Medicat ion inquire s per VIRGIL Romano 10/22 Released w/o Limitations [facility] ([facility] A Team) [facility]) TELE CONSULT [id number] Notes Entered by: NAHEED ADAME 08 Nov 2018 1313 ------- ------- ------- ------- -- MED CONSULT ATION /O LH CANDELARIO DRIVER 11/08 Released to Self Care [facility] ([facility]) [facility] A Team) OUTPATIENT [id number] MEDICAT ION EVAN GARRISON 11/13 Released w/o Limitations [facility] ([facility] A Team) [facility]) OUTPATIENT [id number] injured lower back ZAK LINDSAY Dian 01/15 Released w/o Limitations [facility] ([facility]) [facility] D Team) OUTPATIENT [id number] Notes Entered by: CAROLINA OSWALD 23 Jan 2019 07 ------- ------- ------- ------- -- YEYO HUITRON 01/22 Released with Work/Duty Limitations [facility] ([facility] D Team) [facility]) OUTPATIENT [id number] Notes Entered by: ANDREAS RASCON 23 Jan 2019 0812 ------- ------- ------- ------- -- Travel Med BERENICE Barnett 01/22 Released w/o Limitations [facility] ([facility]) [facility]) OUTPATIENT [id number] Notes Entered by: ANDREAS RASCON 30 Jan 2019 1317 ------- ------- ------- ------- -- Travel Med KAYLIE Young 01/30 Released w/o Limitations [facility] ([facility]) [facility]) OUTPATIENT [id number] Pain in Joshi areas RENNY DIANA 02/12 Released w/o Limitations [facility] ([facility]) [facility] D Team) TELE CONSULT [id number] Notes Entered by: MARK CURIEL 08 Mar 2019 0938 ------- ------- ------- ------- -- SYM/ MONKEY BITE AND COLD SYMPTOM S/ LIBORIO SIMMONS 03/08 Referred- Emergency Department [facility] ([facility] D Team) [facility]) OUTPATIENT [id number] Audiogr am 465B PASTOR AGUILAR 04/25 Released w/o Limitations [facility] ( [facility]) OUTPATIENT [id number] Audiogr am follow up ED LOPEZ 05/19 Released w/o Limitations [facility] ( [facility] D Team) TELE CONSULT [id number] Notes Entered by: ARTHUR HSU 31 May 2019 1603 ------- ------- ------- ------- -- SYM: FEVER, BODY ACHES/( 489) [phone] 5/DARINEL LEROY 05/30 Advice Assessment [facility] ([facility] D Team) [place] [facility] Med PCMH Team 1) OUTPATIENT [id number] fever x5 day runny nose EVE KELECHIKEVIN GANDHI 06/06 Released w/o Limitations [facility] ([facility] Med [facility] Team 1) [facility](P hysical Therapy Clinic) TELE CONSULT [id number] Notes Entered by: YAZAN WALLACE 08 Jun 2019 0931 ------- ------- ------- ------- -- PUI check in RIKY WALLACE 06/07 [facility] (Physic al Therapy Clinic) [facility]) OUTPATIENT [id number] ULICES JOAQUIN 06/23 Released w/o Limitations [facility] ([facility]) [facility] D Team) TELE CONSULT [id number] Notes Entered by: MARK CURIEL 25 Jul 2019 09 ------- ------- ------- ------- -- f/u for pneumon ia/ /SHYANNE Galicia 07/24 Other Not Elsewhere Classified [facility] ([facility] D Team) [facility]) OUTPATIENT [id number] Notes Entered by: KWAME GUILLEN 09 Aug 2019 0919 ------- ------- ------- ------- -- TRI SERVICE PHA/RENNY HEARD 08/08 Released w/o Limitations [facility] ([facility]) [facility] D Team) OUTPATIENT [id number] ear pain, congest ion, and feveris h RENNY DIANA 08/18 Released w/o Limitations [facility] ([facility] D Team) [facility] D Team) OUTPATIENT [id number] PT NEED FABIANA FOR PCS, DISCUSS W/PCM RENNY DIANA 08/25 Released w/o Limitations [facility] ([facility] D Team) [facility](O psurge2 COVID19 Hotline) TELE CONSULT [id number] Notes Entered by: CRISTOFER CASSIDY [facility] 24 Oct 2019 0714 ------- ------- ------- ------- -- COVID CARE LINE KEREN CASSIDY 10/22 Referred for Appointment [facility] (Opsurg e2 COVID19 Hotline ) [facility] D Team) OUTPATIENT [id number] fatigue , nausea, diarrhe a, nasal dischar ge x2 days LINDSAY CRESPO W 10/23 Sick at Home/Quarter s [facility] ([facility] D Team) [facility] A Team) OUTPATIENT [id number] cough x5 days with chills and congest ion VINCE CORTES 10/27 Sick at Home/Quarter s [facility] ([facility] A Team) [facility] D Team) TELE CONSULT [id number] Notes Entered by: CHERYL PATEL 30 Oct 2019 1330 ------- ------- ------- ------- -- SYM: QUATERS ISSUE/R ESULTS/ 634 0900/LIBORIO BUNCH 10/29 Other Not Elsewhere Classified [facility] ([facility] D Team) [facility] D Team) OUTPATIENT [id number] Notes Entered by: Dheeraj CASTILLO 18 Dec 2019 0715 ------- ------- ------- ------- [facility] 12/16 Released w/o Limitations [facility] ([facility] D Team) [facility]) OUTPATIENT [id number] Notes Entered by: JEREMIAH BOBO 24 Dec 2019 1216 ------- ------- ------- ------- -- OS Melba ADLER, UYEN Simeon 12/23 Released w/o Limitations [facility] ([facility]) [facility] Active Duty Team A) TELE CONSULT [id number] Notes Entered by: DEREK BANEGAS 15 May 2020 1223 ------- ------- ------- ------- -- STI testing [facility]INE COHN [facility] 05/15 [facility] Active Duty Team A) [facility] Active Duty Team A) OUTPATIENT [id number] Notes Entered by: Emma COHN 15 May 2020 1243 ------- ------- ------- ------- -- Walk is possibl e STI treatme nt RITA ANDREWS 05/15 [facility] Limitations [facility]) [facility] Active Duty Team A) OUTPATIENT [id number] neck px // [phone] RITA ANDREWS 05/18 Released w/o Limitations [facility] Active Duty Team A) [facility] Active Duty Team A) TELE CONSULT [id number] Notes Entered by: MICHELLE RAY I 20 May 2020 1042 ------- ------- ------- ------- -- initial ANGELIQUE Hui 05/20 [facility] Active Duty Team A) [facility] FP Behaviora l Hlt Opt) OUTPATIENT [id number] Anxiety /Depres miguel MANOLO FRED A 05/27 Released w/o Limitations [facility] FP Behavio ral Hlt Opt) [facility] Wom Active Duty Team A) OUTPATIENT [id number] 2 !1300 TDN RITA ANDREWS 05/30 Released w/o Limitations [facility] Wom Active Duty Team A) [facility] Hearing Conservat ion) OUTPATIENT [id number] ohe hearing MARTIN-LINDSAY CO, JAYNE 06/14 Released w/o Limitations [facility] Hearing Conserv ation) [facility] Immunizat ion) OUTPATIENT [id number] COVID 19 VAX MODERNA 1 JESI GOOD A 06/30 Released w/o Limitations [facility](RSN Immuniz ation) [facility] Nutrition Care) OUTPATIENT [id number] Cliff [email or web address] Ortega 07/15 Released w/o Limitations [facility] Nutriti on Care) [facility] Wellness Center) OUTPATIENT [id number] BOD/MET LINDSAY RUVALCABA 07/23 Released w/o Limitations [facility] [place]) [facility] Wellness Center) OUTPATIENT [id number] JAM ASKEW 07/24 Released w/o Limitations [facility] [place]) [facility] Wo Active Duty Team A) TELE CONSULT [id number] Notes Entered by: RUPA CALDWELL 24 Jul 2020 1018 ------- ------- ------- ------- -- Morgan asher for sleep study REBEL COX 07/24 [facility] Wom Active Duty Team A) [facility]N Immunizat ion) OUTPATIENT [id number] COVID-1 9 VACC MODERNA DOSE 2 ENRIQUE RAMÍREZY 07/28 Released w/o Limitations [facility](RSN Immuniz ation) [facility] Wellness Center) OUTPATIENT [id number] [facility] T[facility] 08/26 Released w/o Limitations [facility]) [facility] Wo Active Duty Team A) TELE CONSULT [id number] Notes Entered by: DEREK BANEGAS 31 Aug 2020 0741 ------- ------- ------- ------- -- radiolo gy request - pls see today REBEL COX 08/31 [facility] Wo Active Duty Team A) [facility] OP Medicine Clinic) OUTPATIENT [id number] Notes Entered by: CLIFTON BHAKTA 31 Aug 2020 0908 ------- ------- ------- ------- -- ronalda CLIFTON BHAKTA 08/31 [facility] w/o Limitations [facility] OP Medicin e Clinic) [facility] Wo Active Duty Team A) OUTPATIENT [id number] VIRTUAL DANYA HICKS 08/31 Released w/o Limitations [facility] Wo Active Duty Team A) [facility](RS Wo Active Duty Team A) TELE CONSULT [id number] Notes Entered by: MICHELLE RAY I 11 Sep 2020 1040 ------- ------- ------- ------- -- ER f/u for partial ly praveena price ngs REBEL COX 09/11 [facility] Wom Active Duty Team A) [facility](L Sleep Clinic) OUTPATIENT [id number] SPEC [id number] YISSEL BALLESTEROS 09/11 Released w/o Limitations [facility] Sleep [facility]) [facility] Wom Active Duty Team A) OUTPATIENT [id number] Right hamstri ng pain LARRY BLISS 09/11 Released with Work/Duty Limitations [facility] Wom Active Duty Team A) [facility] Wom Active Duty Team A) TELE CONSULT [id number] Notes Entered by: MICHELLE RAY I 20 Nov 2020 0844 ------- ------- ------- ------- -- Adderal l RX refill request FRED FLORES 11/20 [facility] Wom Active Duty Team A) [facility] Sleep Study Lab) OUTPATIENT [id number] HST PICKUP JIN DALY 12/09 Released w/o Limitations [facility] Sleep Study Lab) [facility] Sleep Clinic) OUTPATIENT [id number] HST DROPOFF /RESULT S F2F YISSEL BALLESTEROS 12/10 Released w/o Limitations [facility] Sleep Clinic) [facility](L Emergency Room) OUTPATIENT [id number] DONTA FRITZ 12/22 Released w/o Limitations [facility](L Emergen cy Room) [facility] Wom Active Duty Team A) TELE CONSULT [id number] Notes Entered by: DEREK BANEGAS 29 Dec 2020 1340 ------- ------- ------- ------- -- profile request ed DANYA AKERS 12/29 [facility] Wom Active Duty Team A) [facility] Wo Active Duty Team A) TELE CONSULT [id number] Notes Entered by: ZOLTAN OROZCO 30 Dec 2020 1230 ------- ------- ------- ------- -- FRED Simmons 12/30 Other Not Elsewhere Classified [facility] Wom Active Duty Team A) [facility] Emergency Room) OUTPATIENT [id number] NAOMY HOUSE 02/07 Released w/o Limitations [facility] Emergen cy Room) [facility](Opsur ge Multi-Spe cialty Cl) TELE CONSULT [id number] Notes Entered by: TAZ GODOY 08 Feb 2021 1130 ------- ------- ------- ------- -- COVID Test Walk-In TAZ GODOY 02/08 Other Not Elsewhere Classified [facility](Ops urge Multi-S pecialt y Cl) [facility] Wo Active Duty Team A) TELE CONSULT [id number] Notes Entered by: MICHELLE RAY I 10 Feb 2021 1512 ------- ------- ------- ------- -- Quarter s verific ation needed SANDIP MOYA 02/10 Other Not Elsewhere Classified [facility] Wom Active Duty Team A) [facility] Base Op Med Clinic) OUTPATIENT [id number] OHE, 177A Acft, CBN [id number] JULIANO TERAN 03/09 Released w/o Limitations [facility] Base Op Med Clinic) [facility] Hearing Conservat ion Cln) OUTPATIENT [id number] 177A AUDIOGR AM BELÉN COREY 04/02 Released w/o Limitations [facility] Hearing Conserv ation Cln) [facility] Active Duty Team A) TELE CONSULT [id number] Notes Entered by: ZOLTAN OROZCO 20 May 2021 0903 ------- ------- ------- ------- -- SICK sx/Rx needed PAPITO VASQUEZ 05/20 Advice Assessment [facility] [facility] A[facility] Active Duty Team A) TELE CONSULT [id number] Notes Entered by: MAGY BAH 31 May 2021 0803 ------- ------- ------- ------- -- on going SICK sx / Cov + PAPITO VASQUEZ 05/31 [facility] Family Med Non-AD Team E) TELE CONSULT [id number] Notes Entered by: Dheeraj KANG 09 Jun 2021 1145 ------- ------- ------- ------- -- STI Check PAPITO VASQUEZ 06/09 Referred for Appointment [facility] Family Med Non-AD Team E) [facility] Active Duty Team A) OUTPATIENT [id number] STI with abd pain and flank pain JIN ISBELL 06/09 Released w/o Limitations [facility] Active Duty Team A) [facility] Active Duty Team D) TELE CONSULT [id number] Notes Entered by: AMISHA ISBELL 23 Jun 2021 1341 ------- ------- ------- ------- -- Lab results JIN ISBELL 06/23 [facility] Active Duty Team D) [facility]) OUTPATIENT [id number] Elevati on [facility] of [facility] [id number] GEGE AVILA 07/12 Released w/o Limitations [facility]) [facility]) TELE CONSULT [id number] Notes Entered by: SHEREE العراقي 22 Jul 2021 1732 ------- ------- ------- ------- -- labs GEGE AVILA 07/22 [facility]) [facility] Active Duty Team A) TELE CONSULT [id number] Notes Entered by: JOCELINE HARP 03 Aug 2021 1331 ------- ------- ------- ------- -- Deploym JIN Galeana 08/03 [facility] Active Duty Team A) [facility] Base [facility] Med Clinic) OUTPATIENT [id number] [facility]HA PHA + [phone] LYDIA CHAVEZ 08/03 Released w/o Limitations [facility]) [facility]) OUTPATIENT [id number] Notes Entered by: Cheryl HOLLEY 10 Aug 2021 1017 ------- ------- ------- ------- -- RADHA CUELLO 08/10 Released w/o Limitations [facility]) [facility]) TELE CONSULT [id number] Notes Entered by: SHEREE العراقي 27 Aug 2021 1509 ------- ------- ------- ------- -- labs GEGE AVILA 08/27 [facility] Gastroe nterolo gy) [facility]) OUTPATIENT [id number] [facility] DRAKE SEARS 09/15 Sick at Home/Quarter s [facility]) [facility] Wo Active Duty Team A) TELE CONSULT [id number] Notes Entered by: Shivani KANG 20 Sep 2021 0713 ------- ------- ------- ------- -- Adverse Reactio n to Antibio tic REBEL COX 09/20 [facility] Wo Active Duty Team A) [facility]) OUTPATIENT [id number] [facility] Wo Active Duty Team A) TELE CONSULT [id number] Notes Entered by: MAGY BAH 28 Sep 2021 1153 ------- ------- ------- ------- -- Chiro referPAPITO Joseph 09/28 Other Not Elsewhere Classified [facility] Wo [facility]) [facility] Chiroprac tic Clinic) OUTPATIENT [id number] Low back pain, unspeci JARRET Barker 10/04 Released w/o Limitations [facility] Chiropr actic Clinic) [facility] Wo Active Duty Team A) TELE CONSULT [id number] Notes Entered by: HENRRY RICO 06 Oct 2021 1534 ------- ------- ------- ------- -- Working Waiver ANUM Rucker 10/06 Other Not Elsewhere Classified [facility] Active Duty Team A) [facility] Emergency Room) OUTPATIENT [id number] BETSYTAMIKO 10/08 Released w/o Limitations [facility] Emergen cy Room) [facility] Chiroprac tic Clinic) OUTPATIENT [id number] Low R back JARRET LERNER Huang 10/11 Released w/o Limitations [facility] Chiropr actic Clinic) [facility] Active Duty Team A) TELE CONSULT [id number] Notes Entered by: Shivani KANG 15 Oct 2021 1236 ------- ------- ------- ------- -- Extend KELLI Ruelas 10/15 [facility] Chiroprac tic Clinic) OUTPATIENT [id number] Low R back JARRET LERNER 10/18 [facility] Limitations [facility] Chiropr actic Clinic) [facility] Active Duty Team A) OUTPATIENT [id number] ER f/u w/ back pain, still in pain JIN ISBELL 10/18 Released w/o Limitations [facility] Active Duty Team A) [facility] Active Duty Team D) TELE CONSULT [id number] Notes Entered by: AMISHA ISBELL 20 Oct 2021 0821 ------- ------- ------- ------- -- Low back FRED FLORES 10/20 Advice Assessment [facility] Active Duty Team D) [facility] Chiroprac tic Clinic) OUTPATIENT [id number] Low R back JARRET LERNER 11/11 Released w/o Limitations [facility] Chiropr actic Clinic) [facility] Chiroprac tic Clinic) OUTPATIENT [id number] Low R back JARRET LERNER Huang 11/25 Released w/o Limitations [facility] Chiropr actic Clinic) [facility] Chiroprac tic Clinic) OUTPATIENT [id number] Low R back JARRET LERNER Huang 12/02 Released w/o Limitations [facility] Chiropr actic Clinic) [facility] Active Duty Team A) TELE CONSULT [id number] Notes Entered by: HENRRY RICO 02 Dec 2021 1701 ------- ------- ------- ------- -- Confide PAPITO Rahman 12/02 Other Not Elsewhere Classified [facility] Active Duty Team A) [facility] Active Duty Team A) TELE CONSULT [id number] Notes Entered by: Casey RODRIGUEZ 14 Dec 2021 0915 ------- ------- ------- ------- -- Waiver extensi on and modific KELLI Blas 12/14 Other Not Elsewhere Classified [facility] Active Duty Team A) [facility] Chiroprac tic Clinic) OUTPATIENT [id number] Low R back JARRET LERNER Huang 12/20 Released w/o Limitations [facility] Chiropr actic Clinic) [facility] Active Duty Team A) TELE CONSULT [id number] Notes Entered by: Casey RODRIGUEZ 20 Dec 2021 0924 ------- ------- ------- ------- -- JOCE mobilit y waiver confirm ation needed PAPITO VASQUEZ 12/20 Advice Assessment [facility] Active Duty Team A) [facility] Active Duty Team A) TELE CONSULT [id number] Notes Entered by: Shivani KANG 04 Jan 2022 0925 ------- ------- ------- ------- -- BERENICE Smalls 01/04 Other Not Elsewhere Classified [facility] Active Duty Team A) [facility] Physical Therapy) OUTPATIENT [id number] Low back pain, unspeci quyened ARMAAN ORTEGA 01/11 Released w/o Limitations [facility] Physica [facility] Therapy ) [facility]) OUTPATIENT [id number] 7 back pain ANGE ELLIS 01/19 Released w/o Limitations [facility] ) [facility] Active Duty Team D) TELE CONSULT [id number] JIN ISBELL 01/19 [facility] Wo Active Duty Team D) [facility] Chiroprac tic Clinic) OUTPATIENT [id number] low back JARRET LERNER 01/25 Released w/o Limitations [facility] Chiropr actic Clinic) [facility] Active Duty Team A) TELE CONSULT [id number] Notes Entered by: Casey RODRIGUEZ 31 Jan 2022 1353 ------- ------- ------- ------- -- STD check LIZ COFFEY 01/31 [facility] Active Duty Team A) [facility]) OUTPATIENT [id number] Other interve rtebral disc degener ation, lumbar region CHERMALATHIAK, GRIGORY VLADIMIROV ICH 02/01 Released w/o Limitations [facility]) [facility]) OUTPATIENT [id number] back pain ELISE CANADA 02/02 Released w/o Limitations [facility] ) [facility]) OUTPATIENT [id number] RIGHT L4-L5 TFESI CHERNYAK, GRIGORY VLADIMIROV ICH 02/02 Released w/o Limitations [facility]) [facility] Active Duty Team A) TELE CONSULT [id number] Notes Entered by: MAGY BAH 07 Feb 2022 1034 ------- ------- ------- ------- -- Talk to PCM about 365 ANUM Espinosa P 02/07 Other Not Elsewhere Classified [facility] Active Duty Team A) [facility]) OUTPATIENT [id number] back ELLIS, ANGE T 02/08 Released w/o Limitations [facility] ) [facility]) OUTPATIENT [id number] 7 back pain ARMAAN ORTEGA J 02/09 Released w/o Limitations [facility] ) [facility]) OUTPATIENT [id number] Cosmeti c eval acne matt gRox [phone] RUCHI HOLLEY 02/09 Released w/o Limitations [facility]) [facility]) OUTPATIENT [id number] back pain JACLYN MARTIN 02/11 Released w/o Limitations [facility] ) [facility]) TELE CONSULT [id number] Notes Entered by: Casey HOLLEY 11 Feb 2022 1314 ------- ------- ------- ------- -- biopsy result LUCILARADHA Reshma 02/11 [facility]) [facility] Clinic) OUTPATIENT [id number] FOUNDAT IONS BERNARDA CHOWDHURY A 02/16 Released w/o Limitations [facility] Clinic) [facility]) OUTPATIENT [id number] back pain MARTINJACLYN A 02/16 Released w/o Limitations [facility] ) [facility]) OUTPATIENT [id number] 6 low back ANGE ELLIS 03/02 Released w/o Limitations [facility] ) [facility]) OUTPATIENT [id number] Laser resurfa cing paid. [phone] RUCHI HOLLEY 03/03 Released w/o Limitations [facility] D[facility]) [facility](n [facility]) OUTPATIENT [id number] Notes Entered by: Cheryl NUNO 08 Mar 2022 0820 ------- ------- ------- ------- -- CCAC ZAKIA DONAHUE 03/08 Released w/o Limitations [facility]) [facility]) OUTPATIENT [id number] back pain ARMAAN ORTEGA 03/09 Released w/o Limitations [facility] ) [facility]) OUTPATIENT [id number] back and neck ANGE ELLIS 03/17 Released w/o Limitations [facility] ) [facility]) OUTPATIENT [id number] back and neck ANGE ELLIS 03/24 Released w/o Limitations [facility] ) [facility]) OUTPATIENT [id number] LBP ELISE CANADA 03/28 Released w/o Limitations [facility] ) [facility] Hearing Conservat ion Cln) OUTPATIENT [id number] 4 Audiogr am, 177A ARMANDOADIA Foote 04/04 Released w/o Limitations [facility]) [facility] Physical Therapy) OUTPATIENT [id number] 1 Back ARMAAN ORTEGA 04/05 Released w/o Limitations [facility] Physica l Therapy ) [facility] Base Op Med Clinic) OUTPATIENT [id number] 3 OHE, 226B, CBN [id number] JULIANO TERAN O 04/08 Released w/o Limitations [facility] Base Op Med Clinic) [facility] Wo Active Duty Team A) OUTPATIENT [id number] Neck, shoulde r, knee px MOMLIZ BAZAN L 04/12 Released w/o Limitations [facility] 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 Procedure Procedure Type Code Date Perfomer Comments Sour e SCREENING TEST, PURE TONE, AIR ONLY 10/27 DoD SCREENING TEST, PURE TONE, AIR ONLY 10/26 DoD SIMPLE REPAIR OF SUPERFICIAL WOUNDS OF SCALP, NECK, AXILLAE, EXTERNAL GENITALIA, TRUNK AND/OR EXTREMITIES (INCLUDING HANDS AND FEET); 2.5 CM OR LESS 02/21 DoD CIRCUMCISION 11/07 [facility] OTHER PHOTOTHERAPY 11/07 [facility] BRIEF EMOTIONAL/BEHAVIORA L ASSESSMENT (EG, DEPRESSION INVENTORY, ATTENTION-DEFICIT/H YPERACTIVITY DISORDER [ADHD] SCALE), WITH SCORING AND DOCUMENTATION, PER STANDARDIZED INSTRUMENT 04/15 [facility] PSYCHOTHERAPY, 60 MINUTES WITH PATIENT 04/08 [facility] SPIROMETRY, INCLUDING GRAPHIC RECORD, TOTAL AND TIMED VITAL CAPACITY, EXPIRATORY FLOW RATE MEASUREMENT(S), WITH OR WITHOUT MAXIMAL VOLUNTARY VENTILATION 04/08 [facility] THERAPEUTIC PROCEDURE, 1 OR MORE AREAS, EACH 15 MINUTES; THERAPEUTIC EXERCISES TO DEVELOP STRENGTH AND ENDURANCE, RANGE OF MOTION AND FLEXIBILITY 04/05 [facility] PURE TONE AUDIOMETRY (THRESHOLD), AUTOMATED; AIR ONLY 04/04 [facility] APPLICATION OF A MODALITY TO 1 OR MORE AREAS; ELECTRICAL STIMULATION (UNATTENDED) 03/28 [facility] APPLICATION OF A MODALITY TO 1 OR [...] ENDURANCE, RANGE OF MOTION AND FLEXIBILITY 02/16 [facility] GROUP PSYCHOTHERAPY (OTHER THAN OF A MULTIPLE-FAMILY [...] MED DIS 12/14 DoD QUALIFIED NONPHYSICIAN HEALTH ASSOCIATE EDITOR ONLINE DIGITAL ASSESSMENT AND MANAGEMENT, FOR AN [...] WAIVER SERVICES; NOT OTHERWISE SPECIFIED (NOS) 12/10 DoD SLEEP STUDY, UNATTENDED, SIMULTANEOUS RECORDING; MINIMUM OF [...] SCORING AND DOCUMENTATION, PER STANDARDIZED INSTRUMENT 08/31 DoD CRUTCHES UNDERARM, OTHER THAN WOOD, ADJUSTABLE OR FIXED, PAIR, WITH PADS, TIPS AND HANDGRIPS 08/30 [facility] PATIENT EDUCATION, NOT OTHERWISE CLASSIFIED, NON-PHYSICIAN PROVIDER, GROUP, PER SESSION 08/26 DoD IMMUNIZATION ADM,INTRAMUSCULAR INJECTION OF SEVERE AC RESPIRATORY SYNDROME CORONAVIR 2 (SARSCOV-2) (CORONAVIR DIS [COVID-19]) VACC,MRNALNP,SPIKE PROT,PRESERVATIVE FREE,100 MCG/0.5ML DOSAG;SECOND DOSE 07/28 [facility] NUTRITION CLASSES, NON-PHYSICIAN PROVIDER, PER SESSION 07/24 [facility] OXYGEN UPTAKE, GAS ANALYSIS; REST, INDIRECT (SEPARATE PROCEDURE) 07/23 DoD WAIVER SERVICES; NOT OTHERWISE SPECIFIED (NOS) 07/15 DoD IMMUNIZATION ADM,INTRAMUSCULAR INJECTION OF SEVERE AC RESPIRATORY SYNDROME CORONAVIR 2 (SARSCOV-2) (CORONAVIR DIS [COVID-19]) VACCINE,MRNALNP,SPI KE PROT,PRESERVATIVE FREE,100 MCG/0.5ML DOSAG;1ST DOSE 06/30 [facility] NEEDLE, STERILE, ANY SIZE, EACH 06/18 [facility] PURE TONE AUDIOMETRY (THRESHOLD), AUTOMATED; [...] HR/SOON APT;5-10 MIN MED DIS 05/15 DoD TELE ASSESS & MGT SRV [...] &/KIERA ASSESS FUNC OUTCOME TYP,20 MIN SPENT [id number] W PAT&/FAM 07/12 DoD APPLICATION OF A [...] NONPHYS HCP TO AN ESTABLISHED PAT/GUARDIAN,NOT ORIGINAT [facility] RELAT ASSESS &MANAG SERV PROVIDE W/IN THE PREV 7 DAYS,USE THE WAY Systems/[facility] NETWORK 05/22 DoD APPLICATION OF A MODALITY [...] OF LOW COMPLEXITY,TYPICALL Y,20 MIN ARE SPENT [id number]-HL-[id number] W THE PATIENT &/FAMILY 03/28 DoD PURE [...] MORE AREAS; HOT OR COLD PACKS 05/17 [facility] APPLICATION OF A MODALITY TO 1 OR MORE AREAS; HOT OR COLD PACKS 05/12 DoD SELF-CARE/HOME MANAGMENT TRAIN (EG,ACT OF DAILY LIVING (ADL) &COMPENSAT TRAIN,MEAL PREPARATION,SAFETY PROCS,AND INSTRUCT IN USE OF ASST TECHNOLOGY DEV/ADPT EQUIP) DIR ONE-ON-ONE CONT,EA 15 MINUTES 04/18 [facility] PURE TONE AUDIOMETRY (THRESHOLD), AUTOMATED; AIR ONLY 04/15 [facility] HEALTH AND BEHAVIOR INTERVENTION, EACH 15 MINUTES, [id number]; INDIVIDUAL 04/12 [facility] DETERMINATION OF REFRACTIVE STATE 04/07 DoD TELE [...] L MONITOR, HEALTH-ORIENT QUESTIONNAIRES), EA 15 MIN [id number]-GL-[id number] W THE PATIENT; INIT ASSESSMENT 03/28 DoD TELE ASSESS & MGT SRV PROV QUAL NONPHYS HLTH CARE PRO TO EST PAT,PARENT,GUARD NOT ORIG REL ASSESS & MGT SRV PROV W/IN PREV 7 DAYS NOR LEAD ASSESS & MGT SRV/PX W/IN NXT 24H/SOON APT; 11-20 MIN MED DIS 03/25 [facility] Physical Therapy: ___ Se ion Segments, 15 Minutes Each Physical Therapy: ___ Session Segments, 15 Minutes Each [id number] 05/[address] [facility] Non-Physician Phone Call To Patient/Provider Brief (5-10min) Non-Physician Phone Call To Patient/Provider Brief (5-10min) 03481 05/[address] [facility] Modalities Heat Hot Packs Modalities Heat Hot Packs 67884 05/[address] [facility] Physical Therapy: ___ Se ion Segments, 15 Minutes Each Physical Therapy: ___ Session Segments, 15 Minutes Each 85208 05/17 THI NESS Modalities Heat Hot Packs Modalities Heat Hot Packs 20361 05/12 THI NESS Physical Therapy: ___ Se ion Segments, 15 Minutes Each Physical Therapy: ___ Session Segments, 15 Minutes Each 49731 05/12 THI NESS Phys Therapy Education Self Care Training - Per 15 Minutes Phys Therapy Education Self Care Training - Per 15 Minutes 29826 04/18 BILLY DON Exercises A isted Exercises For ROM Exercises Assisted Exercises For ROM 68504 04/18 BILLY DON Physical Medicine Physical Therapy Evaluation Physical Medicine Physical Therapy Evaluation 79218 04/18 BILLY DON Patient education, not otherwise cla ified, non-physician provider, group, per se ion 04/17 MADHAVI ORTIZ Threshold Audiogram (Pure Tone) Automated Threshold Audiogram (Pure Tone) Automated [id number] 04/17 MADHAVI ORTIZ Non-Physician Phone Call To Pt/Provider Intermed (11-20 min) Non-Physician Phone Call To Pt/Provider Intermed (11-20 min) 66128 04/14 KAYLIE EVANS Health And Behavior Intervention, Each 15 Minutes Individual Health And Behavior Intervention, Each 15 Minutes Individual 03872 04/11 JASON GUERRA Ophthalmological New Patient Start Comprehensive Care Ophthalmological New Patient Start Comprehensive Care 66360 04/07 TOBIN FRAGA Determination Of Refractive State Determination Of Refractive State 29287 04/07 TOBIN FRAGA Health And Behav A e mt Each 15 Min Initial A e ment Health And Behav Assessmt Each 15 Min Initial Assessment 74221 04/05 JASON GUERRA Non-Physician Phone Call To Pt/Provider Intermed (11-20 min) Non-Physician Phone Call To Pt/Provider Intermed (11-20 min) 63950 03/30 KAYLIE EVANS Audiogram (Screening) Audiogram (Screening) 74694 10/28 WINTER WIN Physical Therapy: ___ Se ion Segments, 15 Minutes Each Physical Therapy: ___ Session Segments, 15 Minutes Each 46936 07/13 MIGUEL PETERSON Modalities Cryotherapy Cold Packs Modalities Cryotherapy Cold Packs 56329 07/[address] [facility] Physical Therapy Gait Training Physical Therapy Gait Training 75601 07/[address] [facility] Physical Medicine - Group Physical Therapy Se ion Physical Medicine - Group Physical Therapy Session 72499 07/[address] [facility] Threshold Audiogram (Pure Tone) Automated Threshold Audiogram (Pure Tone) Automated [id number] 07/[address] [facility] Patient education, not otherwise cla ified, non-physician provider, group, per se JAM Aguero [facility] Brief communication technology-based service, e.g. virtual check-in, by a physician or other qualified health care profe kinsey who can report evaluation and management services, provided to an established patient, not originating from a related E/M service provided within the previous 7 days nor leading to an E/M service or procedure within the next 24 hours or soonest available appointment; 5-10 minutes of medical discu CLIFTON Mon [facility] Waiver services; not otherwise specified (NOS) YISSEL BALLESTEROS [facility] Spirometry Spirometry [address] [facility] Non-Physician Phone Call To Patient/Provider Brief (5-10min) Non-Physician Phone Call To Patient/Provider Brief (5-10min) [address] [facility] Sleep Study Unattended Record: Heart Rate, O2 Saturation, Respiratory Analysis Sleep Study Unattended Record: Heart Rate, O2 Saturation, Respiratory Analysis [address] [facility] Hospital outpatient clinic visit specimen collection for severe acute respiratory syndrome coronavirus 2 (sars-cov-2) (coronavirus disease [covid-19]), any specimen source TAZ GODOY [facility] Threshold Audiogram (Pure Tone) Automated Threshold Audiogram (Pure Tone) Automated [id number] BELÉN COREY [facility] Non-Physician Phone Call To Pt/Provider Intermed (11-20 min) Non-Physician Phone Call To Pt/Provider Intermed (11-20 min) [address] [facility] Psychometric Neuropsych Testing Battery Admin By Computer Psychometric Neuropsych Testing Battery Admin By Computer [address] [facility] Supervised Injection Intramuscular Antibiotic Supervised Injection Intramuscular Antibiotic 65800 DRAKE DOWNING Verified pt's 6 rights. Pt [...] in waiting room [address] [facility] Chiropractic Manip Treatmt (CMT) Spinal Three To Four Region Chiropractic Manip Treatmt (CMT) Spinal Three To Four Region 62379 JARRET LERNER Mobilization Soft Ti ue Mobilization Soft Tissue 87808 JARRET [address] [facility] Modalities Electrical Stimulation Unattended Modalities Electrical Stimulation Unattended 27501 JARRET LERNER Modalities Heat Hot Packs Modalities Heat Hot Packs 95703 JARRET LERNER Osteopathic Manip Treatment (OMT) 1-2 Body Regions Involved Osteopathic Manip Treatment (OMT) 1-2 Body Regions Involved 44813 ARMAAN ORTEGA Physical Therapy: ___ Se ion Segments, 15 Minutes Each Physical Therapy: ___ Session Segments, 15 Minutes Each 30411 ARMAAN ORTEGA Exercise equipment ARMAAN ORTEGA Corticosteroid Injection Interlaminar Approach Lumbar Corticosteroid Injection Interlaminar Approach Lumbar 03163 RANDY SANCHEZ Corticosteroid Inj Interlaminar Lumbar L4 - L5 Corticosteroid Inj Interlaminar Lumbar L4 - L5 47657 RANDY SANCHEZ Physical Medicine Physical Therapy Re-Evaluation Physical Medicine Physical Therapy Re-Evaluation 83669 ARMAAN ORTEGA Shaving Of Lesion Ankles .6 to 1cm Shaving Of Lesion Ankles .6 to 1cm 17173 RUCHI HOLLEY After explaining the nature of [...] Sterile dressing applied and wound care discussed. [facility] Destruction Of Benign Lesion By Any Method 1 - 14 Lesions Destruction Of Benign Lesion By Any Method 1 - 14 Lesions 73457 KISHAN RUCHI BABIN After verbally discussing reason for treatment (benign [...] ointment application to healing crusts if desired. [facility] Psychiatric Therapy Group (Interactive) Psychiatric Therapy Group (Interactive) [phone] BERNARDA CHOWDHURY in Pain Education Group [phone]. SM was not assessed individually for this encounter. SM fully participated in the [employer] [facility]. Topics presented included [...] and Online Resources and Back Facts handouts. [facility] Integumentary Procedures facial dermabrasion Segmental Face Integumentary Procedures facial dermabrasion Segmental Face [address] [facility] Nerve Block Trigeminal Nerve Block Trigeminal [address] [facility] Mobilization Soft Ti ue Mobilization Soft Tissue [address] [facility] Health And Behavior Intervention, Each 15 Minutes Individual Health And Behavior Intervention, Each 15 Minutes Individual 10925 10/[address] [facility] Health And Behav A e mt Each 15 Min Initial A e ment Health And Behav Assessmt Each 15 Min Initial Assessment 37970 10/21 BERTA BOWER III [facility] Physical Medicine Physical Therapy Re-Evaluation Physical Medicine Physical Therapy Re-Evaluation 16438 07/[address] [facility] Traction Equipment Traction Equipment 70840 07/[address] [facility] Traction Equipment Traction Equipment 69957 06/[address] [facility] Osteopathic Manip Treatment (OMT) 1-2 Body Regions Involved Osteopathic Manip Treatment (OMT) 1-2 Body Regions Involved 15502 06/27 ERICK BRENNAN Physical Therapy: ___ Se ion Segments, 15 Minutes Each Physical Therapy: ___ Session Segments, 15 Minutes Each 65265 06/27 ERICK BRENNAN Chiropractic Manip Treatmt (CMT) Spinal Three To Four Region Chiropractic Manip Treatmt (CMT) Spinal Three To Four Region 43823 06/01 RIAN SIMMS Internet Med Svc Qual Nonphys Healthcare Prof Estab Patient Internet Med Svc Qual Nonphys Healthcare Prof Estab Patient [id number] 05/29 ANGELES SCHWARZ Audiogram (Screening) Audiogram (Screening) 33879 05/14 SAHIL BROTHERS Physical Therapy: ___ Se ion Segments, 15 Minutes Each Physical Therapy: ___ Session Segments, 15 Minutes Each 80662 05/09 MATTHEW LLAMAS Physical Therapy: ___ Se ion Segments, 15 Minutes Each Physical Therapy: ___ Session Segments, 15 Minutes Each 73471 05/01 ERICK BRENNAN Physical Medicine Physical Therapy Re-Evaluation Physical Medicine Physical Therapy Re-Evaluation 10917 05/01 ERICK BRENNAN Modalities Heat Hot Packs Modalities Heat Hot Packs 78975 04/24 CATALINA MCDERMOTT Physical Therapy: ___ Se ion Segments, 15 Minutes Each Physical Therapy: ___ Session Segments, 15 Minutes Each 13339 04/24 CATALINA MCDERMOTT Threshold Audiogram (Pure Tone) Automated Threshold Audiogram (Pure Tone) Automated [id number] 04/19 DREAD CALIX Patient education, not otherwise cla ified, non-physician provider, individual, per se ion 04/19 DREAD CALIX Modalities Heat Hot Packs Modalities Heat Hot Packs 94043 04/11 ASUNCION POST Physical Therapy: ___ Se ion Segments, 15 Minutes Each Physical Therapy: ___ Session Segments, 15 Minutes Each 04004 04/11 ASUNCION POST Physical Therapy: ___ Se ion Segments, 15 Minutes Each Physical Therapy: ___ Session Segments, 15 Minutes Each 26027 04/03 CATALINA MCDERMOTT Non-Physician Phone Call To Patient/Provider Brief (5-10min) Non-Physician Phone Call To Patient/Provider Brief (5-10min) 99285 03/28 JOCELINE ESPINO Physical Therapy: ___ Se ion Segments, 15 Minutes Each Physical Therapy: ___ Session Segments, 15 Minutes Each 79559 03/19 CATALINA MCDERMOTT Chiropractic Manip Treatmt (CMT) Spinal Three To Four Region Chiropractic Manip Treatmt (CMT) Spinal Three To Four Region 29255 03/19 RIAN SIMMS Physical Therapy: ___ Se ion Segments, 15 Minutes Each Physical Therapy: ___ Session Segments, 15 Minutes Each 17356 03/09 ERICK BRENNAN Non-Physician Phone Call To Patient/Provider Brief (5-10min) Non-Physician Phone Call To Patient/Provider Brief (5-10min) 87295 02/27 JOCELINE ESPINO Non-Physician Phone Call To Patient/Provider Brief (5-10min) Non-Physician Phone Call To Patient/Provider Brief (5-10min) 03238 01/09 GERARDO LYLE Chiropractic Manip Treatmt (CMT) Spinal Three To Four Region Chiropractic Manip Treatmt (CMT) Spinal Three To Four Region 87232 08/31 RIAN SIMMS Chiropractic Manip Treatmt (CMT) Spinal Three To Four Region Chiropractic Manip Treatmt (CMT) Spinal Three To Four Region 82118 08/15 RIAN SIMMS Chiropractic Manip Treatmt (CMT) Spinal Three To Four Region Chiropractic Manip Treatmt (CMT) Spinal Three To Four Region 55307 07/13 RIAN SIMMS Internet Med Svc Qual Nonphys Healthcare Prof Estab Patient Internet Med Svc Qual Nonphys Healthcare Prof Estab Patient 64629 06/16 ANGELES SCHWARZ Chiropractic Manip Treatmt (CMT) Spinal Three To Four Region Chiropractic Manip Treatmt (CMT) Spinal Three To Four Region 61188 06/13 RIAN SIMMS Chiropractic Manip Treatmt (CMT) Spinal One To Two Regions Chiropractic Manip Treatmt (CMT) Spinal One To Two Regions 58004 06/01 RIAN SIMMS Internet Med Svc Qual Nonphys Healthcare Prof Estab Patient Internet Med Svc Qual Nonphys Healthcare Prof Estab Patient 11115 05/30 BRADLY FRENCH Modalities Heat Hot Packs Modalities Heat Hot Packs 49947 05/28 JOCELINE CERVANTES Physical Therapy: ___ Se ion Segments, 15 Minutes Each Physical Therapy: ___ Session Segments, 15 Minutes Each 64903 05/21 JOCELINE CERVANTES Modalities Heat Hot Packs Modalities Heat Hot Packs 65451 05/21 JOCELINE CERVANTES Acoustic Reflex Testing Acoustic Reflex Testing 08269 05/18 JOCELINE AKERS Tympanometry Tympanometry 07955 05/18 JOCELINE AKERS Comprehensive Audiometry Comprehensive Audiometry 55290 05/18 JOCELINE AKERS Chiropractic Manip Treatmt (CMT) Spinal Three To Four Region Chiropractic Manip Treatmt (CMT) Spinal Three To Four Region 35550 05/16 RIAN SIMMS Modalities Heat Hot Packs Modalities Heat Hot Packs 17153 05/14 JOCELINE CERVANTES Physical Therapy: ___ Se ion Segments, 15 Minutes Each Physical Therapy: ___ Session Segments, 15 Minutes Each 73714 05/14 JOCELINE CERVANTES Threshold Audiogram (Pure Tone) Automated Threshold Audiogram (Pure Tone) Automated [id number] 04/11 BHAVNA ORTEGA Patient education, not otherwise cla ified, non-physician provider, group, per se ion 04/11 BHAVNA ORTEGA Exercises A isted Exercises For ROM Exercises Assisted Exercises For ROM 15758 03/28 BILLY DON Threshold Audiogram (Pure Tone) Automated Threshold Audiogram (Pure Tone) Automated [id number] 03/27 TAMIKO WILSON Patient education, not otherwise cla ified, non-physician provider, group, per se ion 03/[address] [facility] Non-Physician Phone Call To Pt/Provider Intermed (11-20 min) Non-Physician Phone Call To Pt/Provider Intermed (11-20 min) 96470 03/[address] [facility] Non-Physician Phone Call To Patient/Provider Brief (5-10min) Non-Physician Phone Call To Patient/Provider Brief (5-10min) 85548 11/[address] [facility] Non-Physician Phone Call To Patient/Provider Brief (5-10min) Non-Physician Phone Call To Patient/Provider Brief (5-10min) 86796 10/[address] [facility] Non-Physician Phone Call To Patient/Provider Brief (5-10min) Non-Physician Phone Call To Patient/Provider Brief (5-10min) 22715 07/[address] [facility] Physical Medicine Physical Therapy Re-Evaluation Physical Medicine Physical Therapy Re-Evaluation 20922 06/[address] [facility] Physical Therapy: ___ Se ion Segments, 15 Minutes Each Physical Therapy: ___ Session Segments, 15 Minutes Each 03963 05/[address] [facility] Modalities Heat Hot Packs Modalities Heat Hot Packs 04476 05/[address] [facility] Supervised Injection Intramuscular Antibiotic Supervised Injection Intramuscular Antibiotic [address] [facility] Health And Behavior A e ment, Each 15 Minutes Health And Behavior Assessment, Each 15 [address] [facility] Health And Behav A e mt Each 15 Min Initial A e ment Health And Behav Assessmt Each 15 Min Initial Assessment [address] [facility] Osteopathic Manip Treatment (OMT) 3-4 Body Regions Involved Osteopathic Manip Treatment (OMT) 3-4 Body Regions Involved [address] [facility] Modalities Electrical Stimulation Attended Each 15 Minutes Modalities Electrical Stimulation Attended Each [address] [facility] Physical or manipulative therapy performed for maintenance rather than catholic RITA ANDREWS [facility] Needle, sterile, any size, each RITA ANDREWS [facility] Preventive Medicine Physical Exam Vital Signs Recorded Preventive Medicine Physical Exam Vital Signs Recorded LINDSAY NORMAN [facility] Pulmonary Function - O2 Uptake - Gas Analysis Pulmonary Function - O2 Uptake - Gas Analysis [address] [facility] Nutrition cla es, non-physician provider, per se JAM Aguero [facility] Health And Behavior Intervention, Each 15 Minutes Individual Health And Behavior Intervention, Each 15 Minutes Individual 10089 BERTA BOWER III, Dr. Supervised Injection Intramuscular Supervised Injection Intramuscular 34124 LINDSAY CRESPO Please give 30mg IM Ketorolac in clinic now. [facility] Injection, ketorolac tromethamine, per [address] [facility] Patient education, not otherwise cla ified, non-physician provider, individual, per se PASTOR [place] [facility] Social History Combined list of available smoking, tobacco, and other social history from Department of Defense and Veterans Affairs facilities. Social History Type Response Date Comment Sour e This section is an empty social history section. [facility]
--- OUTSIDE RECORDS SUMMARY | 2024-07-05 13:08 | XMS_ITS ---
Author Organization 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 [address] [place] [address] 07/02/2024 Talisha Lau Plan Of Treatment Next Appt Details Provider Name:Talisha Esqueda Sid , 07/09/2024 02:00:00 PM, [address] [facility], [place], [address], Progress Notes * Naseem ABERNATHY RDOB:[birth year] (28 yo M)Acc No.[id number]:07/02/2024 Patient:?Naseem ABERNATHY :1995???Age:28 Y???Sex:Male Address:[address] [place] [id number] * true * Date:? Generated for Printi ng/Famadonnag/eTransmitting on:?07/05/2024 01:08 PM EDT
--- OUTSIDE RECORDS SUMMARY | 2024-07-05 13:08 | XMS_ITS | Clinical Summary ---
Author Organization [facility] Address [address] [place] [address] Care Team Providers Care Tank Setter Name Role Phone Unavailable Primary Care Provider [...]
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
--- OUTSIDE RECORDS SUMMARY | 2024-07-05 13:08 | XMS_ITS | Clinical Summary ---
Author Organization [facility] Address [address] [place] [address] Care Team Providers Care Magneto Repairer Name Role Phone Unavailable Primary Care Provider [...] 2013 COVID-19 Vaccine (2023-2 5 season) 2023 Depression Screening 12/31/2023 HIV Screening 12/31/2023 Hepatitis C Screening 12/31/2023 Social Influencers of Health Screening 12/31/2023 Influenza Vaccine (Season Ended) 2024 HIB Vaccines Aged Out No longer eligi [...]
--- OUTSIDE RECORDS SUMMARY | 2024-07-05 13:09 | XMS_ITS | Clinical Summary ---
Author Organization [facility] Address [address] [place] [address] Care Team Providers Care Fire Prevention Engineer Name Role Phone Unknown Primary Care Provider [phone] Allergies No known active allergies Medications adapalene (DIFFERIN) 0.1 % cream Apply 0.1 % topically. 02/09/2022 Active amphetamine-dex troamphetamine (ADDERALL) 15 MG tablet 10/03/2022 Active ferrous [...] naproxen (NAPROSYN) 250 MG tablet Take with food/milk.Flynn e or use exactly as directed.Obta in advice for OTCs.May cause drowsiness/di zziness.Check with your doctor before becoming . 10/03/2022 Active Active Problems No known active problems Encounters Date Type Department Care Team Description 05/02/2024 Transcribe Orders [facility] [place] [address] [facility] [address] [place] [address] Sharon Miles MD Bilateral pulmonary embolism (HCC) (Primary Dx) from Last 3 Months Social History Tobacco Use Types Packs/Day Years Used Date Smoking Tobacco: Never Smokeless Tobacco: Never Tobacco Cessation:Counseling Given: Not Answered Sex and Gender Information Value Date Recorded Sex Assigned at Not on file Legal Sex Male 5:38 PM EST Gender Identity Not on file Sexual Orientation [...] Description 08/01/2024 8:00 AM EDT Office Visit [facility] [place] [address] [place] [id number] Forrest Campos MD [address] [place], [place] [id number] Health Maintenance Due Date Last Done Comments [...] on patient's age to complete this topic Insurance ACTIVE DUTY ACTIVE DUTY Care Teams Fire Prevention Engineer Relationship Specialty Start Date End Date Unknown Unknow Provider Address PCP - General 01/10/23
--- OUTSIDE RECORDS SUMMARY | 2024-07-05 13:09 | XMS_ITS ---
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 Generated for Printi ng/Faxing/eTransmitting on:?07/05/2024 01:08 PM EDT
== END 2024-07-05 13:19 | disposition home or self-care (01) ==
LOC: HO.PMC 12:43
PROVIDERS: PCP Internal Medicine; Visit Provider Internal Medicine
DX: M54.40 Lumbago with sciatica, unspecified side (principal); G89.29 Other chronic pain
CPT/HCPCS: 99213

== ENCOUNTER → 2024-07-05 12:42 | Outpatient (BNVA) | payer OTHER, SELFPAY | PROVIDERS: PCP Internal Medicine; Visit Provider Internal Medicine | DX: M54.40 Lumbago with sciatica, unspecified side (principal); G89.29 Other chronic pain | CPT/HCPCS: 99212 ==

== ENCOUNTER 2024-07-12 10:53 | Outpatient (REF) | payer OTHER, SELFPAY ==
--- NOTE | 2024-07-12 10:57 | PFT_ITS ---
Indication: Dyspnea Spirometry [FEV1 to FVC 79%; FEV1 4.69 L; FVC 5.96 L. no significant response to bronchodilators noted. To note the FEF 25 75 was 66% predicted suggesting small airways disease.] Lung Volumes [Total lung capacity 92% predicted; residual volume 86% predicted; expiratory reserve volume 54% predicted] Diffusion Capacity [DLCO is 117% predicted] Comparisons [none] Interpretation [No obstructive nor restrictive ventilatory defects identified. No significant response to bronchodilators noted. The patient does have some evidence of small airways disease which could be seen with asthma. Lung volumes and diffusing capacity are both within normal limits. If asthma is differential methacholine challenge may be helpful to assess him for hyperreactive airways. Clinical correlation warranted.] MTDD
--- OUTSIDE RECORDS SUMMARY | 2024-07-12 11:23 | XMS_ITS | Continuity of Care Document ---
Author Name [facility] Organization 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 Unavailable Unavailable Problems Combined list of problems [...] ORAL, MALLINKRT PHARM, 100 ea. BOTTLE Active [id number] 2023 60 Pharmac y Data Transac tion Service Facilit y CLOMID (clomiphene citrate), 50 MG, TABLET, ORAL, FANTA PHARMAC, 30 ea. BLIST PACK Cancele d [id number] : 2023 0 Pharmac y Data Transac tion Service Facilit y CLOMID (clomiphene citrate), 50 MG, TABLET, ORAL, FANTA PHARMAC, 30 ea. BLIST PACK Active [id number] 2023 14 Pharmac y Data Transac tion Service Facilit y CLOMID (clomiphene citrate), 50 MG, TABLET, ORAL, FANTA PHARMAC, 30 ea. BLIST PACK Active [id number] 4 2023 14 Pharmac y Data Transac tion Service Facilit y CLOMID (clomiphene citrate), 50 MG, TABLET, ORAL, FANTA PHARMAC, 30 ea. BLIST PACK Active [id number] 4 2023 14 Pharmac y Data Transac tion Service Facilit y CLOMID (clomiphene citrate), 50 MG, TABLET, ORAL, FANTA PHARMAC, 30 ea. BLIST PACK Active [id number] 4 2023 14 Pharmac y Data Transac tion Service Facilit y DEX/AMPHET (ADDERALL XR EQ) 15 MG CP24 Take or use exactly as directed .May impair driving. This prescrip tion cannot be refilled .Federal law prohibit s transfer of prescrip tion. 02/18/2024 [id number] [address] [place] [address] DEX/AMPHET (ADDERALL XR EQ) 15 MG CP24 Take or use exactly as directed .May impair driving. This prescrip tion cannot be refilled .Federal law prohibit s transfer of prescrip tion. 12/13/2023 [id number] [address] [place] [address] Dextroamphe tamine Saccharate, Amphetamine Aspartate, Dextroamphe tamine Sulfate and Amphetamine Sulfate ([employer] 100 TABLET in 1 BOTTLE Active [id number] 06/14/19 2 4 2023 60 Pharmac y Data Transac tion Service Facilit y DULOXETINE HCL (duloxetine HCl), 20 MG, CAPSULE DR, ORAL, AJANTA PHARMA L, 60 ea. BOTTLE Active [id number] 2023 30 Pharmac y Data Transac tion Service Facilit y DULOXETINE HCL (duloxetine HCl), 20 MG, CAPSULE DR, ORAL, AJANTA PHARMA L, 60 ea. BOTTLE Active [id number] 2023 30 Pharmac y Data Transac tion Service Facilit y DULOXETINE HCL (duloxetine HCl), 20 MG, CAPSULE DR, ORAL, AJANTA PHARMA L, 60 ea. BOTTLE Active [id number] 4 2023 30 Pharmac y Data Transac tion Service Facilit y Meloxicam (Meloxicam) , 15mg, Tablet, Oral, [facility] 1000 Ea. Bottle Cancele d [id number] : 2023 0 Pharmac y Data Transac tion Service Facilit y METHOCARBAM OL (methocarba mol), 750 MG, TABLET, ORAL, GRANULES PHARMA, 100 ea. BOTTLE Active [id number] 2023 42 Pharmac y Data Transac tion Service Facilit y MIRTAZAPINE (MIRTAZAPIN E), 30MG, TABLET, ORAL, CARACO PHARM, 30 ea. BOTTLE Cancele d [id number] : 2023 0 Pharmac y Data Transac tion Service Facilit y ONDANSETRON ODT (ONDANSETRO N), 8 MG, TAB RAPDIS, ORAL, AUROBINDO PHARM, 30 ea. BLIST PACK Active [id number] 2023 30 Pharmac y Data Transac tion Service Facilit y TRAZODONE HCL (trazodone HCl), 50 MG, TABLET, ORAL, TEVA [place], 100 ea. BOTTLE Cancele d [id number] : 2023 0 Pharmac y Data Transac tion Service Facilit y TRAZODONE HCL (trazodone HCl), 50 MG, TABLET, ORAL, TEVA [place], 100 ea. BOTTLE Active [id number] 2023 30 Pharmac y Data Transac tion Service Facilit y TRAZODONE HCL (trazodone HCl), 50 MG, TABLET, ORAL, TEVA [place], 100 ea. BOTTLE Active [id number] 2023 60 Pharmac y Data Transac tion Service Facilit y TRAZODONE HCL (trazodone HCl), 50 MG, TABLET, ORAL, TEVA [place], 100 ea. 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) complet ed typhoid Vi capsular polysacch aride vaccine DoD meningococcal polysaccharid e (groups A, C, Y and W-135) diphtheria toxoid conjugate vaccine (MCV4P) 2 2021 [id number] Sanofi Pasteur ([facility]) complet ed meningoco ccal polysacch aride (groups A, C, Y and W-135) diphtheri a toxoid conjugate vaccine (MCV4P) DoD Human Papillomaviru s 9-valent vaccine 2 2021 [id number] 165 [employer] (MSD) complet ed Human Papilloma virus 9-valent vaccine DoD SARS-COV-2 (COVID-19) vaccine, mRNA, spike protein, LNP, preservative free, 100 mcg or 50 mcg dose 3 2021 [id number] 207 [employer]. (MOD) complet ed SARS-COV- 2 (COVID-19 ) vaccine, mRNA, spike protein, LNP, preservat maritza free, 100 mcg or 50 mcg dose DoD Influenza, injectable, quadrivalent, preservative free 7 2020 [id number] 150 [employer] ([place]) complet ed Influenza , injectabl e, quadrival ent, preservat maritza free DoD SARS-COV-2 (COVID-19) vaccine, mRNA, spike protein, LNP, preservative free, 100 mcg or 50 mcg dose 2 2020 [id number] 207 [employer]. (MOD) complet ed SARS-COV- 2 (COVID-19 ) vaccine, mRNA, spike protein, LNP, preservat maritza free, 100 mcg or 50 mcg dose DoD SARS-COV-2 (COVID-19) vaccine, mRNA, spike protein, LNP, preservative free, 100 mcg or 50 mcg dose 1 2020 [id number] 207 [facility], [employer]. (MOD) complet ed SARS-COV- 2 (COVID-19 ) vaccine, mRNA, spike protein, LNP, preservat maritza free, 100 mcg or 50 mcg dose DoD Influenza, injectable, quadrivalent, preservative free 0 2019 [id number] 150 [employer] (SEQ) complet ed Influenza , injectabl e, quadrival ent, preservat maritza free DoD typhoid Vi capsular polysaccharid e vaccine 1 2018 [id number] 101 Sanofi Pasteur ([facility]) complet ed typhoid Vi capsular polysacch aride vaccine DoD Human Papillomaviru s 9-valent vaccine 1 2018 [id number] 165 Merck (MSD) complet ed Human Papilloma virus 9-valent vaccine DoD Influenza, injectable, quadrivalent, preservative free 0 2018 [id number] 520 150 [employer] (SEQ) complet ed Influenza , injectabl e, quadrival ent, preservat maritza free DoD Influenza, injectable, quadrivalent, preservative free 0 2017 [id number] 150 [employer] (SEQ) comple t ed Influenza , injectabl e, quadrival ent, preservat maritza free DoD Azerbaijani Encephalitis vaccine for intramuscular administratio n 3 2017 [id number] 134 Valneva ([place]) complet ed Azerbaijani Encephali tis vaccine for intramusc ular administr ation DoD influenza, injectable, quadrivalent, contains preservative 3 2016 [id number] 158 [facility] (B) complet ed influenza , injectabl e, quadrival ent, contains preservat maritza DoD Azerbaijani Encephalitis vaccine for intramuscular administratio n 2 2016 [id number] 134 Valneva ([place]ICA) complet ed Azerbaijani Encephali tis vaccine for intramusc ular administr ation DoD hepatitis A and hepatitis B vaccine 3 2015 [id number] 104 [facility] (SKB) complet ed hepatitis A and hepatitis B vaccine DoD Azerbaijani Encephalitis vaccine for intramuscular administratio n 1 2015 [id number] 134 [employer] (INT) complet ed Azerbaijani Encephali tis vaccine for intramusc ular administr ation DoD Influenza, seasonal, injectable, preservative free 0 2015 [id number] 140 [employer] (SEQ) comple t ed Influenza , seasonal, injectabl e, preservat maritza free DoD measles, mumps and rubella virus vaccine 2 2015 [id number] 03 Merck (MSD) complet ed measles, mumps and rubella virus vaccine DoD hepatitis A and hepatitis B vaccine 1 2015 [id number] 104 [employer] (SKB) complet ed hepatitis A and hepatitis B vaccine DoD measles, mumps and rubella virus vaccine 1 2015 [id number] 03 Merck (MSD) complet ed measles, mumps [...] diphtheria toxoid conjugate vaccine (MCV4P) 1 2015 [id number] 114 Sanofi Pasteur (PMC) complet ed meningoco [...] and type 7, live, oral 1 2015 [id number] 143 [employer] (BRR) complet ed Adenoviru s, type 4 and type 7, live, oral [facility] influenza, injectable, quadrivalent, contains preservative 1 2015 [...] ADM Date DC Date Status Disposition Source [facility] [place] [address](Mitch matology Surgery, [facility]) OUTPATIENT [id number] NERY Smalls 06/29 Released w/o Limitations [facility] [place] [address](D ermatol ogy Surgery , [facility]) [facility] [place] [address]([facility]) OUTPATIENT [id number] Notes Entered by: LAURA WALKER 01 Jul 2015 1019 ------- ------- ------- ------- -- Strep Prophyl axis JACQUELINE WALKER 06/30 Released w/o Limitations [facility] [place] [address]([facility] d) [place] [address](Hea ring Conservat ion, BMT) OUTPATIENT [id number] FLIP KWAN 07/02 Released w/o Limitations [facility] [place] [address](H earing Conserv ation, BMT) [place] [address](ATR 323 TRS,BMT) OUTPATIENT [id number] Notes Entered by: MARKY HASSAN 09 Jul 2015 1339 ------- ------- ------- ------- -- luke al lower leg pain MIGUEL PETERSON 07/08 Released with Work/Duty Limitations [facility] [place] [address](A TR 323 TRS,BMT ) [place] [address](ATR 323 TRS,BMT) OUTPATIENT [id number] Notes Entered by: MARKY HASSAN 10 Jul 2015 1020 ------- ------- ------- ------- -- TALHA SIMON PT 07/09 Released with Work/Duty Limitations [facility] [place] [address](A TR 323 TRS,BMT ) [place] [address](MAS Alpha) OUTPATIENT [id number] Notes Entered by: Casey WELCH 11 Aug 2015 1212 ------- ------- ------- ------- -- cold pack SUNDEEP WELCH 08/10 Released w/o Limitations [facility] [place] [address](M Alpha) [place]) OUTPATIENT [id number] PFB ASHU DEE 08/31 Released with Work/Duty Limitations [place]) [place]) OUTPATIENT [id number] PFB ASHU DEE 09/30 Released w/o Limitations [place] OUTPATIENT [id number] POSSIBL E TENNILLE SALVADOR 10/05 Released w/o Limitations [place] [place] Occupatio nal Health) OUTPATIENT [id number] [facility] 10/26 Released [place] Limitations [place] Occupat ional Health) [place] Hearing Conservat ion) OUTPATIENT [id number] audio +sts right WINTER WIN C 10/26 [place]ased [place]/o Limitations [place] Hearing Conserv ation) [place] Hearing Conservat ion) OUTPATIENT [id number] audio WINTER WIN C 10/27 [place]ased [place]/o Limitations [place] Hearing Conserv ation) [place] Readiness Center) OUTPATIENT [id number] OSS/JAP AN MART CAO 11/10 Released w/o Limitations [place]) OUTPATIENT [id number] f/u Bilater al Foot Pain TENNILLE CASSIDY 11/11 Released with Work/Duty Limitations [place]) [place]) OUTPATIENT [id number] PFB LUIZ ASHU BAILEY 11/30 Released w/o Limitations [place]) [facility]ly [facility](K a Medical In-Out Processin g) TELE CONSULT [id number] Notes Entered by: ASHU ACUÑA 03 Feb 2016 1205 ------- ------- ------- ------- -- Medical Inproce ssing ASHU ACUÑA 02/02 Other Not Elsewhere Classified Formerly [facility] ( Medical In-Out Process ing) Formerly [facility]) OUTPATIENT [id number] initial shaivin dwayne ho and plantar fasciti s GEGE FERNANDEZ 02/07 Released w/o Limitations [facility] ([facility]) Formerly [facility](P odiatry Clinic) OUTPATIENT [id number] Plantar fascial fibroma PAT Guevara 03/23 Released w/o Limitations [facility]ly [facility] (Podiat ry Clinic) [facility]ly [facility]) OUTPATIENT [id number] neck and back px7/10 alexander t x3mo SID JOHNSON 03/24 Released w/o Limitations [facility] ([facility] BGAB) [facility]ly [facility]) TELE CONSULT [id number] Notes Entered by: DAYLIN CERVANTES 25 Mar 2016 1037 ------- ------- ------- ------- -- RAD results SANTINO MULLER 03/25 [facility] ([facility] BG) Formerly [facility]( a [facility]) OUTPATIENT [id number] stress managem ent/ref erral from [facility] JASON GUERRA 03/28 Released w/o Limitations [facility] ([facility]) [facility]) OUTPATIENT [id number] RAD results f/u SID JOHNSON 03/30 Released w/o Limitations [facility] ([facility]) [facility]) TELE CONSULT [id number] Notes Entered by: GAGE MURCIA 05 Apr 2016 1323 ------- ------- ------- ------- -- PHAQ PRIORIT Y SANTINO DEVRIES 04/05 [facility]ly [facility] ([facility]) Formerly [facility]) OUTPATIENT [id number] routine /IMR TOBIN FRAGA 04/07 Released w/o Limitations [facility]ly [facility] ( Optomet ry Clinic) [facility]ly [facility]) OUTPATIENT [id number] f/u JASON GUERRA 04/11 Released w/o Limitations [facility] ([facility]) [facility] Hearing Conservat [facility]) OUTPATIENT [id number] Notes Entered by: WOLFGANG FERNANDEZ 15 Apr 2016 1412 ------- ------- ------- ------- -- AUDIOGR AM RAGHAV ORTIZ 04/15 Released w/o Limitations [facility] ( Hearing Conserv ation) [facility] Physical Therapy Clinic) OUTPATIENT [id number] radha Velazquez TYLER B 04/18 Released with Work/Duty Limitations [facility]ly [facility] ( Physica l Therapy Clinic) [facility]) TELE CONSULT [id number] Notes Entered by: BANDAR VEGA 18 Apr 2016 1401 ------- ------- ------- ------- -- [facility] RANDALL CRESPO 04/18 [facility] ([facility]) Formerly [facility]) OUTPATIENT [id number] madelinito RANDALL Dowell 04/19 Released w/o Limitations [facility] ([facility]) [facility]) OUTPATIENT [id number] Notes Entered by: DENISSE HERNANDEZ 05 May 2016 1300 ------- ------- ------- ------- -- MARKUS Gonzalez 05/05 Released w/o Limitations [facility] ([facility]) [facility] Physical Therapy Clinic) OUTPATIENT [id number] THI NESS 05/11 Released w/o Limitations [facility] ( Physica l Therapy Clinic) [facility]) OUTPATIENT [id number] GARRY MILLER 05/12 Released w/o Limitations [facility] ([facility]) [facility] Physical Therapy Clinic) OUTPATIENT [id number] THI NESS 05/16 Released w/o Limitations [facility] ( Physica l Therapy Clinic) [facility]) TELE CONSULT [id number] Notes Entered by: Cheryl GAO 20 May 2016 0732 ------- ------- ------- ------- -- vomit, cold sweats, has had little waterxl ess then 12 hours SANTINO MULLER 05/19 [facility] [place] [facility]) OUTPATIENT [id number] throwin g up SANTINO MULLER 05/20 Released w/o Limitations [facility] ([facility]) [facility] Physical Therapy Clinic) OUTPATIENT [id number] THI NESS 05/22 Released w/o Limitations [facility] ( Physica l Therapy Clinic) [facility]) OUTPATIENT [id number] Tidd resched ule/rebeca ulder px 08/13/ hand px 08/13 x almost 1 yr SANTINO MULLER 05/25 Released w/o Limitations [facility] ([facility]) [facility] Physical Therapy Clinic) OUTPATIENT [id number] THI NESS 05/29 Released w/o Limitations [facility] ( Physic l Therapy [facility]) [facility]) OUTPATIENT [id number] Notes Entered by: GUALBERTO HUBER 30 May 2016 0833 ------- ------- ------- ------- -- [facility] CARINA ALEX 05/29 Released w/o Limitations [facility] ([facility]) [facility] Physical Therapy Clinic) OUTPATIENT [id number] BILLY DON 06/01 Released w/o Limitations [facility] ( [facility]) TELE CONSULT [id number] Notes Entered by: Alfonso SHANE 28 Jul 2016 1043 ------- ------- ------- ------- -- STD Ivis lopez ([facility] omatic) KAYLIE EVANS 07/28 Referred for Appointment [facility] ([facility]) [facility]) OUTPATIENT [id number] Notes Entered by: DENISSE HERNANDEZ 28 Jul 2016 1334 ------- ------- ------- ------- -- LIZ Watson 07/28 Released w/o Limitations [facility] ([facility]) [facility]) TELE CONSULT [id number] SANTINO MULLER 08/05 [facility] ([facility]) [facility]) OUTPATIENT [id number] f/u SID Carson 08/08 Released with Work/Duty Limitations [facility] ([facility]) [facility]) OUTPATIENT [id number] ER f/u for Edema BASSEM JOHNSONBRONWYN Whiteside 09/12 Released w/o Limitations [facility] ([facility]) [facility]) TELE CONSULT [id number] Notes Entered by: Joe WILSON 03 Oct 2016 0909 ------- ------- ------- ------- -- rash on chest,r ed, barbi(l ook like acne) x2days SANTINO MULLER 10/03 [facility] ([facility]) [facility]) TELE CONSULT [id number] Notes Entered by: NICOLAS HOOK 11 Oct 2016 0817 ------- ------- ------- ------- -- Early STI F/U JUD CURRY 10/10 [facility] ([facility]) [facility]) TELE CONSULT [id number] Notes Entered by: ELIZABETH SID [facility] 26 Oct 2016 0847 ------- ------- ------- ------- -- F/u apt for MRI review REBEL GONZALEZ 10/25 Referred for Appointment [facility] ([facility]) [facility]) OUTPATIENT [id number] MRI review ELIZABETHBASSEM COELLOBRONWYN Whiteside 11/04 Released with Work/Duty Limitations [facility] ([facility]) [facility]) OUTPATIENT [id number] Notes Entered by: Emma BURNETT TTE 10 Nov 2016 1328 ------- ------- ------- ------- -- Doreen LEHMANEDES, KAMLESH A 11/10 Released w/o Limitations [facility] ([facility]) [facility] A Team) OUTPATIENT [id number] rash on back, red, raised, no improve ment over past 2wks DEAN GALLAGHER Ramona 12/19 Released w/o Limitations [facility] ([facility] A Team) [facility]) OUTPATIENT [id number] Ref to chiropr BRADLY Prater 01/31 Released w/o Limitations [facility] ([facility]) [facility]) TELE CONSULT [id number] Notes Entered by: Joe WILSON 09 Mar 2017 1506 ------- ------- ------- ------- -- Profile ADEWUSI, MARIALUISA MEADEOLADE 03/09 Other Not Elsewhere Classified [facility] ([facility]) [facility]) TELE CONSULT [id number] Notes Entered by: Joe WILSON 23 Mar 2017 1315 ------- ------- ------- ------- -- SYMP- sore throat, headach es,body px,chil ls,DARINEL Lynn 03/23 Advice Assessment [facility] ([facility]) [facility] a Hearing Conservat ion) OUTPATIENT [id number] Notes Entered by: TAMIKO WILSON 27 Mar 2017 1111 ------- ------- ------- ------- -- AUDIOGR AM TAMIKO WILSON 03/27 Released w/o Limitations [facility] ( Hearing Conserv ation) [facility](K a Hearing Conservat ion) TELE CONSULT [id number] Notes Entered by: TAMIKO WILSON 27 Mar 2017 1112 ------- ------- ------- ------- -- OHA LABS TAMIKO WILSON 03/27 Referred for Appointment [facility] ( Hearing [facility]) [facility]) TELE CONSULT [id number] Notes Entered by: JR ORTIZ 27 Mar 2017 1119 ------- ------- ------- ------- -- STI - Confide nce Check JUD CURRY 03/27 Other Not Elsewhere Classified [facility] ([facility]) [facility]) OUTPATIENT [id number] Notes Entered by: Emma BURNETT 27 Mar 2017 1208 ------- ------- ------- ------- -- Sent by Public [facility] BRADLY FRENCH 03/27 Released w/o Limitations [facility] ([facility]) [facility] Physical Therapy Clinic) OUTPATIENT [id number] Sciatic a, right side BILLY DON 03/28 Released with Work/Duty Limitations [facility] ( Physica l Therapy Clinic) [facility] Hearing Conservat [facility]) OUTPATIENT [id number] Notes Entered by: Regina ORTEGA 11 Apr 2017 1558 ------- ------- ------- ------- -- Audiogr am BHAVNA ORTEGA 04/11 Released w/o Limitations [facility] ( [facility]( [facility]) OUTPATIENT [id number] f/u hearing non flyer RICKY GEE 04/14 Released w/o Limitations [facility] ( [facility]ospa ce Medicin e [facility]) [facility]( a Physical Therapy Clinic) OUTPATIENT [id number] JOCELINE CERVANTES 05/14 Released w/o Limitations [facility] ( Physica l Therapy Clinic) [facility] Chiroprac tic Clinic) OUTPATIENT [id number] Lumbago with sciatic a, right side RIAN SIMMS L 05/16 Released w/o Limitations [facility] ([facility] Chiropr actic Clinic) [facility]ly [facility]( udiology Clinic) OUTPATIENT [id number] Unspeci fied hearing loss, left ear JOCELINE AKERS 05/17 Released w/o Limitations [facility] (Audiol ogy Clinic) [facility] Physical Therapy Clinic) OUTPATIENT [id number] JOCELINE CERVANTES 05/21 Released w/o Limitations [facility] ( Physica l Therapy Clinic) [facility]) OUTPATIENT [id number] Notes Entered by: Joe WILSON 22 May 2017 1138 ------- ------- ------- ------- -- *cough, loss appetit e,sweat s,chill s*[phone] or [phone]* BRADLY FRENCH 05/22 Released w/o Limitations [facility] [facility] ([facility]) [facility]) OUTPATIENT [id number] JOCELINE CERVANTES 05/28 Released w/o Limitations [facility] ( Physica l Therapy Clinic) [facility]) OUTPATIENT [id number] OHA SAHIL BROTHERS 05/31 Released w/o Limitations [facility] ([facility]) [facility] Chiroprac tic Clinic) OUTPATIENT [id number] RIAN SIMMS 06/01 Released w/o Limitations [facility] ([facility] Chiropr actic Clinic) [facility]) OUTPATIENT [id number] OHA f/u RANDALL CRESPO 06/05 Released w/o Limitations [facility] ([facility]) [facility] Chiroprac tic Clinic) OUTPATIENT [id number] RIAN SIMMS 06/13 Released w/o Limitations [facility] ([facility] Chiropr actic Clinic) [facility]) OUTPATIENT [id number] Notes Entered by: LUI SCHWARZ 16 Jun 2017 1433 ------- ------- ------- ------- -- Annual A-P JIN SCHWARZ 06/16 Released w/o Limitations [facility] ([facility]) [facility]) OUTPATIENT [id number] Notes Entered by: GUALBERTO HUBER 19 Jun 2017 0845 ------- ------- ------- ------- -- TRI SERVICE PHA / *LTB BRADLY FRENCH 06/18 Released w/o Limitations [facility] ([facility]) [facility] Chiroprac tic Clinic) OUTPATIENT [id number] RIAN SIMMS 07/12 Released w/o Limitations [facility] ([facility] Chiropr actic Clinic) [facility]) OUTPATIENT [id number] back pain and foot pain BRADLY FRENCH 08/02 Released w/o Limitations [facility] ([facility]) [facility] OUTPATIENT [id number] RIAN SIMMS 08/15 Released w/o Limitations [facility] ([facility] Chiropr actic Clinic) [facility]) OUTPATIENT [id number] RIAN SIMMS 08/31 Released w/o Limitations [facility] ([facility] actic Clinic) [facility] A Team) OUTPATIENT [id number] Notes Entered by: Emma BURNETT 10 Jan 2018 0725 ------- ------- ------- ------- -- JUNIOR [place] 01/09 Released with Work/Duty Limitations [facility] ([facility] A Team) [facility] D Team) TELE CONSULT [id number] Notes Entered by: RA URBAN PERKINS 10 Jan 2018 0816 ------- ------- ------- ------- -- Confide GERARDO Andrews 01/09 Other Not Elsewhere Classified [place] ([facility] D Team) [place]([facility]) OUTPATIENT [id number] injured my back (again) was told to make an appoint ment by kush shearer KEREN WALDEN 02/02 Released with Work/Duty Limitations [place] ([facility]) [place] TELE CONSULT [id number] Notes Entered by: BRIE MIN 23 Feb 2018 1355 ------- ------- ------- ------- -- PRO:Ext landy/ [phone]/ JOCELINE VELASQUEZ 02/23 Other Not Elsewhere Classified [place] ([facility] BG[facility]) [place](P hysical Therapy Clinic) OUTPATIENT [id number] Low back pain ERICK BRENNAN 03/08 Released w/o Limitations [place] ([facility]) [place]([facility] Therapy [facility]) OUTPATIENT [id number] 1 of 4 CATALINA MCDERMOTT 03/16 Released with Work/Duty Limitations [place] ([facility]([facility] Chiroprac tic Clinic) OUTPATIENT [id number] RIAN SIMMS 03/19 Released w/o Limitations [place] ([facility] Chiropr actic Clinic) [place]([facility]) TELE CONSULT [id number] Notes Entered by: ARELY SAUNDERS 28 Mar 2018 1224 ------- ------- ------- ------- -- pro;ana laura evans,/48 [id number] 5JOCELINE Tsang 03/28 Other Not Elsewhere Classified [place] ([facility]) [place]([facility] Therapy [facility]) OUTPATIENT [id number] 2/ AMELIA IMELDANEREIDA CASTRO 03/30 Released with Work/Duty Limitations [facility] ([facility] Therapy [facility]) [facility]) OUTPATIENT [id number] skin issue, acne, initial appt GILLIAN BRADLY Esqueda 04/02 Released w/o Limitations [facility] ([facility]) [facility]) TELE CONSULT [id number] Notes Entered by: JARRETT CALIX 06 Apr 2018 1526 ------- ------- ------- ------- -- OH Labs DREAD CALIX 04/06 Referred for Appointment [facility] ([facility]) [facility](P hysical Therapy Clinic) OUTPATIENT [id number] 4/ ASUNCION POST 04/11 Released w/o Limitations [facility] ([facility] Therapy [facility]) [facility]( a Hearing Conservat ion) OUTPATIENT [id number] Notes Entered by: JARRETT CALIX 13 Apr 2018 0822 ------- ------- ------- ------- -- Audiogr am DREAD CALIX 04/12 Released w/o Limitations [facility] ( Hearing Conserv ation) [facility](P hysical Therapy Clinic) OUTPATIENT [id number] 4/ CATALINA MCDERMOTT 04/20 Released with Work/Duty Limitations [facility] ([facility]) [facility](P hysical Therapy Clinic) OUTPATIENT [id number] LBP F/u ERICK BRENNAN 05/01 Released w/o Limitations [facility] ([facility] Therapy [facility]) [facility](K a Physical Therapy Clinic) OUTPATIENT [id number] 1/ MATTHEW LLAMSA 05/09 Released w/o Limitations [facility] ( Physica l Therapy Clinic) [facility]) OUTPATIENT [id number] SAHIL BLANCO 05/10 [place]ased w/o Limitations [place]) [place] Chiroprac tic Clinic) OUTPATIENT [id number] RIAN SIMMS 06/01 Released w/o Limitations [place] ([facility] Chiropr actic Clinic) [place] OUTPATIENT [id number] Notes Entered by: PETR THAPA 12 Jun 2018 1426 ------- ------- ------- ------- -- TRI SERVICE PHA/ASHU PRICE 06/12 Released w/o Limitations [place] ([facility]) [place]( [facility]) OUTPATIENT [id number] ERICK BRENNAN 06/27 [facility]ased w/o Limitations [place] [facility] [place]) OUTPATIENT [id number] MATTHEW Raya 06/27 [place]ased w/o Limitations [place] ([facility] [place]) OUTPATIENT [id number] MATTHEW Raya 07/08 [place]ased w/o Limitations [place]) [place]([facility]) OUTPATIENT [id number] f/u LBP ERICK BRENNAN 07/11 [place]ased w/o Limitations [place] ([facility]) [place]([facility] D Team) OUTPATIENT [id number] Bilat foot pain x2 weeks JOSE CARTY 08/21 Released w/o Limitations [place] ([facility] D [facility]) [place](P odiatry Clinic) OUTPATIENT [id number] Plantar fascial fibroma GURJIT Jasso 09/19 Released w/o Limitations [place] (Podiat [place]) [place]([facility]) OUTPATIENT [id number] concent ration issues CLAYTON WESTBROOK 10/08 Released w/o Limitations [facility] ([facility]) [facility](P odiatry Clinic) OUTPATIENT [id number] F/U L toenail removal GURJIT HARVEY 10/08 Released w/o Limitations [facility] (Podiat ry Clinic) [facility] A Team) OUTPATIENT [id number] Medicat ion inquire s per VIRGIL Romano 10/22 Released w/o Limitations [facility] ([facility] A Team) [facility]) TELE CONSULT [id number] Notes Entered by: NAHEED ADAME 08 Nov 2018 1313 ------- ------- ------- ------- -- MED CONSULT ATION /O CANDELARIO SANTIAGO 11/08 Released to Self Care [facility] ([facility]) [facility] A Team) OUTPATIENT [id number] MEDICAT ION EVAN GARRISON 11/13 Released w/o Limitations [facility] ([facility] A Team) [facility]) OUTPATIENT [id number] injured lower back LINDSAY CRESPO W 01/15 Released w/o Limitations [facility] ([facility]) [facility] D Team) OUTPATIENT [id number] Notes Entered by: CAROLINA OSWALD 23 Jan 2019 0702 ------- ------- ------- ------- -- YEYO HUITRON 01/22 Released with Work/Duty Limitations [facility] ([facility] D Team) [facility]) OUTPATIENT [id number] Notes Entered by: ANDREAS RASCON 23 Jan 2019 0812 ------- ------- ------- ------- -- Travel Med Indones BERENICE Rizo 01/22 Released w/o Limitations [facility] ([facility]) [facility]) OUTPATIENT [id number] Notes Entered by: ANDREAS RASCON 30 Jan 2019 1317 ------- ------- ------- ------- -- Travel Med KAYLIE Young 01/30 Released w/o Limitations [facility] ([facility]) [facility]) OUTPATIENT [id number] Pain in Joshi areas RENNY DIANA 02/12 Released w/o Limitations [facility] ([facility]) [facility] D Team) TELE CONSULT [id number] Notes Entered by: MARK CURIEL 08 Mar 2019 0938 ------- ------- ------- ------- -- SYM/ MONKEY BITE AND COLD SYMPTOM S/ LIBORIO SIMMONS 03/08 Referred- Emergency Department [facility] ([facility] D Team) [facility]( a Hearing Conservat ion) OUTPATIENT [id number] Audiogr am 465B PASTOR AGUILAR 04/25 Released w/o Limitations [facility] ( [facility]( a Hearing Conservat ion) OUTPATIENT [id number] Audiogr am follow up ED LOPEZ 05/19 Released w/o Limitations [facility] ( Hearing [facility]) [facility] D Team) TELE CONSULT [id number] Notes Entered by: ARTHUR HSU 31 May 2019 1603 ------- ------- ------- ------- -- SYM: FEVER, BODY ACHES/( 125) [phone] 5/DARINEL LEROY 05/30 Advice Assessment [facility] ([facility] D Team) [facility] Team 1) OUTPATIENT [id number] fever x5 day runny nose KELECHI PRADO 06/06 Released w/o Limitations [place] [facility] ([facility] Team 1) [facility](P hysical Therapy Clinic) TELE CONSULT [id number] Notes Entered by: YAZAN WALLACE 08 Jun 2019 0931 ------- ------- ------- ------- -- PUI check in RIKY WALLACE 06/07 [place] (Physic al Therapy Clinic) [facility]) OUTPATIENT [id number] A ULICES CHAO 06/23 Released w/o Limitations [facility] ([facility]) [facility] D Team) TELE CONSULT [id number] Notes Entered by: MARK CURIEL 25 Jul 2019 0918 ------- ------- ------- ------- -- f/u for pneumon ia/ /SHYANNE Galicia 07/24 Other Not Elsewhere Classified [facility] ([facility] D Team) [facility]) OUTPATIENT [id number] Notes Entered by: KWAME GUILLEN 09 Aug 2019 0919 ------- ------- ------- ------- -- TRI SERVICE PHA/RENNY HEARD 08/08 Released w/o Limitations [facility] ([facility]) [facility] D Team) OUTPATIENT [id number] ear pain, congest ion, and feveris h RENNY DIANA 08/18 Released w/o Limitations [facility] ([facility] D Team) [facility] D Team) OUTPATIENT [id number] PT NEED WAVIER FOR PCS, DISCUSS W/RENNY HALE 08/25 Released w/o Limitations [facility] ([facility] D Team) [facility] TELE CONSULT [id number] Notes Entered by: CRISTOFER CASSIDY [facility] 24 Oct 2019 0714 ------- ------- ------- ------- -- COVID CARE LINE KEREN CASSIDY [facility] 10/22 Referred for Appointment [facility] ([employer] e2 COVID19 Hotline ) [facility]( a [facility] D Team) OUTPATIENT [id number] fatigue , nausea, diarrhe a, nasal dischar ge x2 days LINDSAY CRESPO W 10/23 Sick at Home/Quarter s [facility] ([facility] D Team) [facility] A Team) OUTPATIENT [id number] cough x5 days with chills and congest ion VINCE CORTES E 10/27 Sick at Home/Quarter s [facility] ([facility] A Team) [facility] D Team) TELE CONSULT [id number] Notes Entered by: CHERYL PATEL 30 Oct 2019 1330 ------- ------- ------- ------- -- SYM: AGGIE ISSUE/R MAGALI/ 634 0900/LIBORIO BUNCH 10/29 Other Not Elsewhere Classified [facility] ([facility] D Team) [facility] D Team) OUTPATIENT [id number] Notes Entered by: Dheeraj CASTILLO 18 Dec 2019 0715 ------- ------- ------- ------- -- [facility] BRANDONPRESENTATION MEDICAL CENTERIGNACIO GASPAR 12/16 Released w/o Limitations [facility] ([facility] D Team) [facility]) OUTPATIENT [id number] Notes Entered by: JEREMIAH BOBO 24 Dec 2019 1216 ------- ------- ------- ------- -- ALEXIS Camposei n ABS, UYEN Simeon 12/23 Released w/o Limitations [place] ([facility]) [facility] Wo Active Duty Team A) TELE CONSULT [id number] Notes Entered by: DEREK BANEGAS 15 May 2020 1223 ------- ------- ------- ------- -- STI testing CHRISTINE COHN Dwayne 05/15 [facility](RS Wo Active Duty Team A) [facility] Wo Active Duty Team A) OUTPATIENT [id number] Notes Entered by: Emma COHN 15 May 2020 1243 ------- ------- ------- ------- -- Walk is possibl e STI treatme nt RITA ANDREWS 05/15 Released w/o Limitations [facility](RS Wo Active Duty Team A) [facility] Active Duty Team A) OUTPATIENT [id number] neck px // [phone] RITA ANDREWS 05/18 Released w/o Limitations [facility] Wo Active Duty Team A) [facility] Wo Active Duty Team A) TELE CONSULT [id number] Notes Entered by: MICHELLE RAY I 20 May 2020 1042 ------- ------- ------- ------- -- initial dry ANGELIQUE Elkins 05/20 [facility](RS[facility] Wo Active Duty Team A) [facility] FP Behaviora l Hlt Opt) OUTPATIENT [id number] Anxiety /Depres FRED Antunez 05/27 Released w/o Limitations [facility] FP Behavio ral Hlt Opt) [facility](RS Wo Active Duty Team A) OUTPATIENT [id number] !1300 TDN RITA ANDREWS S 05/30 Released w/o Limitations [facility] Wom Active Duty Team A) [facility](RS[facility] Hearing Conservat ion) OUTPATIENT [id number] ohe hearing MARTIN-LINDSAY CO, JAYNE 06/14 Released w/o Limitations [facility] Hearing Conserv ation) [facility](RSN Immunizat ion) OUTPATIENT [id number] COVID 19 VAX MODERNA 1 JESI GOOD 06/30 Released w/o Limitations [facility](RSN Immuniz ation) [facility] Nutrition Care) OUTPATIENT [id number] Cliff [email or web address] Ortega 07/15 Released w/o Limitations [facility](L Nutriti on Care) [facility] Wellness Center) OUTPATIENT [id number] BOD/MET LINDSAY RUVALCABA 07/23 Released w/o Limitations [facility]) [facility] Wellness Center) OUTPATIENT [id number] JAM ASKEW 07/24 Released w/o Limitations [facility]) [facility](RSN Wo Active Duty Team A) TELE CONSULT [id number] Notes Entered by: RUPA CALDWELL 24 Jul 2020 1018 ------- ------- ------- ------- -- Morgan asher for sleep study REBEL COX 07/24 [facility](RS[facility] Wo Active Duty Team A) [facility](RSN Immunizat ion) OUTPATIENT [id number] COVID-1 9 VACC MODERNA DOSE 2 ENRIQUE RAMÍREZ 07/28 Released w/o Limitations [facility](RSN Immuniz ation) [facility] Wellness Center) OUTPATIENT [id number] [facility] J[facility] 08/26 Released w/o Limitations [facility]) [facility](RS[facility] Wom Active Duty Team A) TELE CONSULT [id number] Notes Entered by: DEREK BANEGAS 31 Aug 2020 0741 ------- ------- ------- ------- -- radiolo gy request - pls see today REBEL COX 08/31 [facility] Wo Active Duty Team A) [facility] OP Medicine Clinic) OUTPATIENT [id number] Notes Entered by: CLIFTON BHAKTA 31 Aug 2020 0908 ------- ------- ------- ------- -- a CLIFTON BHAKTA 08/31 [facility] w/o Limitations [facility] OP Medicin e Clinic) [facility] Wo Active Duty Team A) OUTPATIENT [id number] [facility] DANYA HICKS 08/31 [facility]ased w/o Limitations [facility] Wo Active Duty Team A) [facility] Wo Active Duty Team A) TELE CONSULT [id number] Notes Entered by: MICHELLE RAY I 11 Sep 2020 1040 ------- ------- ------- ------- -- ER f/u for partial ly praveena price ngs REBEL COX 09/11 [facility](RSN Wo Active Duty Team A) [facility] Sleep Clinic) OUTPATIENT [id number] [facility] [id number] YISSEL BALLESTEROS 09/11 Released w/o Limitations [facility] Sleep Clinic) [facility] Wom Active Duty Team A) OUTPATIENT [id number] Right hamstri ng LARRY Reza 09/11 Released with Work/Duty Limitations [facility] Wom Active Duty Team A) [facility](RS[facility] Wom Active Duty Team A) TELE CONSULT [id number] Notes Entered by: MICHELLE RAY I 20 Nov 2020 0844 ------- ------- ------- ------- -- Adderal l RX refill request FRED FLORES 11/20 [facility](RS[facility] Wo Active Duty Team A) [facility] Sleep Study Lab) OUTPATIENT [id number] HST PICKUP JIN DALY 12/09 Released w/o Limitations [facility] Sleep Study Lab) [facility] Sleep Clinic) OUTPATIENT [id number] HST DROPOFF /RESULT S F2F YISSEL BALLESTEROS 12/10 Released w/o Limitations [facility] Sleep Clinic) [facility](L Emergency Room) OUTPATIENT [id number] DONTA FRITZ 12/22 Released w/o Limitations [facility](L Emergen cy Room) [facility](RS[facility] Wo Active Duty Team A) TELE CONSULT [id number] Notes Entered by: DEREK BANEGAS 29 Dec 2020 1340 ------- ------- ------- ------- -- profile request DANYA Cox 12/29 [facility] Wom Active Duty Team A) [facility](RSN Wo Active Duty Team A) TELE CONSULT [id number] Notes Entered by: ZOLTAN OROZCO 30 Dec 2020 1230 ------- ------- ------- ------- -- Doreen FLORES FRED MELISSA 12/30 Other Not Elsewhere Classified [facility](RSN Wo Active Duty Team A) [facility] Emergency Room) OUTPATIENT [id number] NAOMY HOUSE 02/07 Released w/o Limitations [facility] Emergen cy Room) [facility](Opsur ge Multi-Spe cialty Cl) TELE CONSULT [id number] Notes Entered by: TAZ GODOY 08 Feb 2021 1130 ------- ------- ------- ------- -- COVID Test Walk-In TAZ GODOY 02/08 Other Not Elsewhere Classified [facility](Ops urge Multi-S pecialt y Cl) [facility](RSN Wo Active Duty Team A) TELE CONSULT [id number] Notes Entered by: MICHELLE RAY I 10 Feb 2021 1512 ------- ------- ------- ------- -- Quarter s verific ation needed SANDIP MOYA 02/10 Other Not Elsewhere Classified [facility](RS[facility] Wo Active Duty Team A) [facility](N Base Op Med Clinic) OUTPATIENT [id number] OHE, 177A [address], CBN [id number] JULIANO TERAN 03/09 Released w/o Limitations [facility] Base Op Med Clinic) [facility](RSN Hearing Conservat ion Cln) OUTPATIENT [id number] 177A AUDIOGR AM BELÉN COREY 04/02 Released w/o Limitations [facility](RSN Hearing Conserv ation Cln) [facility](RSN Wo Active Duty Team A) TELE CONSULT [id number] Notes Entered by: ZOLTAN OROZCO 20 May 2021 0903 ------- ------- ------- ------- -- SICK sx/Rx needed PAPITO VASQUEZ 05/20 Advice Assessment [facility] Active Duty Team A) [facility] Active Duty Team A) TELE CONSULT [id number] Notes Entered by: MAGY BAH 31 May 2021 0803 ------- ------- ------- ------- -- on going SICK sx / Cov + PAPITO VASQUEZ 05/31 [facility]ick [facility] s [facility] Active Duty Team A) [facility] Family Med Non-AD Team E) TELE CONSULT [id number] Notes Entered by: Dheeraj KANG 09 Jun 2021 1145 ------- ------- ------- ------- -- STI Check PAPITO VASQUEZ 06/09 [facility] Family Med Non-AD Team E) [facility] Active Duty Team A) OUTPATIENT [id number] STI with abd pain and flank pain JIN ISBELL 06/09 Released w/o Limitations [facility] Active Duty Team A) [facility] Active Duty Team D) TELE CONSULT [id number] Notes Entered by: AMISHA ISBELL 23 Jun 2021 1341 ------- ------- ------- ------- -- Lab results JIN ISBELL 06/23 [facility] Active Duty Team D) [facility] Gastroent erology) OUTPATIENT [id number] Elevati on of levels of liver transam inase levels/ [id number] GEGE AVILA 07/12 Released w/o Limitations [facility] Gastroe nterolo gy) [facility] Gastroent erology) TELE CONSULT [id number] Notes Entered by: SHEREE العراقي 22 Jul 2021 1732 ------- ------- ------- ------- -- GEGE Miner 07/22 [facility] Gastroe nterolo gy) [facility] Active Duty Team A) TELE CONSULT [id number] Notes Entered by: JOCELINE HARP 03 Aug 2021 1331 ------- ------- ------- ------- -- Deploym JIN Galeana 08/03 [facility] [facility] Active Duty Team A) [facility]) OUTPATIENT [id number] A PHA + [phone] LYDIA CHAVEZ 08/03 Released w/o Limitations [facility]) [facility] Allergy [facility]) OUTPATIENT [id number] Notes Entered by: Cheryl HOLLEY 10 Aug 2021 1017 ------- ------- ------- ------- -- IDRADHA JOSHI 08/10 Released w/o Limitations [facility](n [facility] All[facility]) [facility] Gastroent erology) TELE CONSULT [id number] Notes Entered by: SHEREE العراقي 27 Aug 2021 1509 ------- ------- ------- ------- -- GEGE Miner 08/27 [facility]ast[facility] nterolo gy) [facility]ergy [facility]) OUTPATIENT [id number] [facility] DRAKE SEARS 09/15 Sick at Home/Quarter s [facility]) [facility] Wo Active Duty Team A) TELE CONSULT [id number] Notes Entered by: Shivani KANG 20 Sep 2021 0713 ------- ------- ------- ------- -- Adverse Reactio n to Antibio tic REBEL COX 09/20 Referred for Appointment [facility] Wo Active Duty Team A) [facility]) OUTPATIENT [id number] [facility] DRAKE SEARS 09/20 Sick at Home/Quarter s [facility]) [facility] Wo Active Duty Team A) TELE CONSULT [id number] Notes Entered by: MAGY BAH 28 Sep 2021 1153 ------- ------- ------- ------- -- Chiro referra PAPITO Encinas 09/28 Other Not Elsewhere Classified [facility] Wo Active Duty Team A) [facility] Chiroprac tic Clinic) OUTPATIENT [id number] Low back pain, unspeci quyened JARRET LERNER 10/04 Released w/o Limitations [facility] Chiropr actic Clinic) [facility] Wo Active Duty Team A) TELE CONSULT [id number] Notes Entered by: HENRRY RICO P 06 Oct 2021 1534 ------- ------- ------- ------- -- Working Waiver Request ANUM RICO 10/06 Other Not Elsewhere Classified [facility] Wo Active Duty Team A) [facility] Emergency Room) OUTPATIENT [id number] TAMIKO MEYER 10/08 Released w/o Limitations [facility] Emergen cy Room) [facility] Chiropra tic Clinic) OUTPATIENT [id number] Low R back JARRET LERNER 10/11 Released w/o Limitations [facility] Chiropr actic Clinic) [facility] Wo Active Duty Team A) TELE CONSULT [id number] Notes Entered by: Shivani KANG 15 Oct 2021 1236 ------- ------- ------- ------- -- KELLI Cameron 10/15 Referred for Appointment [facility] Active Duty Team A) [facility] Chiropra tic Clinic) OUTPATIENT [id number] Low R back JARRET LERNER 10/18 Released w/o Limitations [facility] Chiropr actic Clinic) [facility] Wo Active Duty Team A) OUTPATIENT [id number] ER f/u w/ back pain, still in pain JIN ISBELL 10/18 Released w/o Limitations [facility] Active Duty Team A) [facility] Wo Active Duty Team D) TELE CONSULT [id number] Notes Entered by: AMISHA ISBELL 20 Oct 202121 ------- ------- ------- ------- -- Low back FRED FLORES 10/20 Advice Assessment [facility] Wo Active Duty Team D) [facility] Chiroprac tic Clinic) OUTPATIENT [id number] Low R back JARRET LERNER 11/11 Released w/o Limitations [facility] Chiropr actic Clinic) [facility] Chiroprac [facility]) OUTPATIENT [id number] Low R back JARRET LERNER 11/25 Released w/o Limitations [facility] Chiropr actic [facility]) [facility] [id number] Low R back JARRET LERNER 12/02 Released w/o Limitations [facility] Wo Active Duty Team A) TELE CONSULT [id number] Notes Entered by: HENRRY RICO 02 Dec 2021 1701 ------- ------- ------- ------- -- Confide PAPITO Rahman 12/02 Other Not Elsewhere Classified [facility] Wo Active Duty Team A) [facility] Wo Active Duty Team A) TELE CONSULT [id number] Notes Entered by: Casey RODRIGUEZ 14 Dec 2021 0915 ------- ------- ------- ------- -- Waiver extensi on and modific atKELLI Ram 12/14 Other Not Elsewhere Classified [facility] Wo Active Duty Team A) [facility] OUTPATIENT [id number] Low R back JARRET LERNER Huang 12/20 Released w/o Limitations [facility] Chiroct act Clinic) [facility] Wo Active Duty Team A) TELE CONSULT [id number] Notes Entered by: Casey RODRIGUEZ 20 Dec 2021 09 ------- ------- ------- ------- -- JOCE mobilit y waiver confirm ation needed PAPITO VASQUEZ 12/20 Advice Assessment [facility] Wo Active Duty Team A) [facility] Wo Active Duty Team A) TELE CONSULT [id number] Notes Entered by: Shivani KANG 04 Jan 2022 0925 ------- ------- ------- ------- -- BERENICE Smalls 01/04 Other Not Elsewhere Classified [facility] Wo Active Duty Team A) [facility] Physical Therapy) OUTPATIENT [id number] Low back pain, unspeci fied ARMAAN ORTEGA 01/11 Released w/o Limitations [facility] Physica l Therapy ) [facility]) OUTPATIENT [id number] back pain ANGE ELLIS 01/19 Released w/o Limitations [facility] Phys[facility] Therapy ) [facility] Wo Active Duty Team D) TELE CONSULT [id number] AKILAHJIN 01/19 [facility] Wo Active Duty Team D) [facility] Chiroprac tic Clinic) OUTPATIENT [id number] low back EDUARDA, JARRET Huang 01/25 Released w/o Limitations [facility] Chiropr actic Clinic) [facility] Wo Active Duty Team A) TELE CONSULT [id number] Notes Entered by: Casey RODRIGUEZ 31 Jan 2022 1353 ------- ------- ------- ------- -- STD check LIZ COFFEY 01/31 [facility] Wo Active Duty Team A) [facility]) OUTPATIENT [id number] Other interve rtebral disc degener ation, lumbar region RANDY SANCHEZ ICH 02/01 Released w/o Limitations [facility]) [facility] Physical Therapy) OUTPATIENT [id number] back pain ELISE CANADA 02/02 Released w/o Limitations [facility] Physica l Therapy ) [facility]) OUTPATIENT [id number] RIGHT L4-L5 TFESI DANIEL, RANDY VLADIMIROV ICH 02/02 Released w/o Limitations [facility]) [facility] Wo Active Duty Team A) TELE CONSULT [id number] Notes Entered by: MAGY BAH 07 Feb 2022 1034 ------- ------- ------- ------- -- Talk to PCM about 365 ANUM Espinosa 02/07 Other Not Elsewhere Classified [facility] Wo Active Duty Team A) [facility] Physical Therapy) OUTPATIENT [id number] back ELLIS, ANGE T 02/08 Released w/o Limitations [facility] Phys[facility] Therapy ) [facility]) OUTPATIENT [id number] back pain ARMAAN ORTEGA J 02/09 Released w/o Limitations [facility] Phys[facility] Therapy ) [facility]) OUTPATIENT [id number] Cosmeti c eval acne scarrin gRox [phone] RUCHI HOLLEY 02/09 Released w/o Limitations [facility] D[facility]) [facility]) OUTPATIENT [id number] back pain JACLYN MARTIN 02/11 Released w/o Limitations [facility] Phys[facility] Therapy ) [facility]) TELE CONSULT [id number] Notes Entered by: Casey HOLLEY 11 Feb 2022 1314 ------- ------- ------- ------- -- biopsy result RADHA GAYTAN Reshma 02/11 [facility] D[facility]) [facility] Clinic) OUTPATIENT [id number] FOUNDAT IONS BERNARDA CHOWDHURY 02/16 Released w/o Limitations [facility](L [facility] Clinic) [facility] Physical Therapy) OUTPATIENT [id number] back pain JACLYN MARTIN A 02/16 Released w/o Limitations [facility] Phys[facility] Therapy ) [facility]) OUTPATIENT [id number] low back ANGE ELLIS 03/02 Released w/o Limitations [facility] Phys[facility] Therapy ) [facility]) OUTPATIENT [id number] Laser resurfa cing paid. [phone] RUCHI HOLLEY 03/03 Released w/o Limitations [facility] Derm[facility]y) [facility](n Cold [facility] Allergy Clinic) OUTPATIENT [id number] Notes Entered by: Cheryl NUNO 08 Mar 2022 0820 ------- ------- ------- ------- -- CCAC ZAKIA DONAHUE 03/08 Released w/o Limitations [facility](n Cold [facility] Allergy Clinic) [facility]) OUTPATIENT [id number] back pain ARMAAN ORTEGA 03/09 Released w/o Limitations [facility] Phys[facility] Therapy ) [facility]) OUTPATIENT [id number] back and neck ANGE ELLIS 03/17 Released w/o Limitations [facility] Phys[facility] Therapy ) [facility]) OUTPATIENT [id number] 5 back and neck ANGE ELLIS 03/24 Released w/o Limitations [facility](N Physica l Therapy ) [facility] Physical Therapy) OUTPATIENT [id number] LBP ELISE CANADA 03/28 Released w/o Limitations [facility](N Physica l Therapy ) [facility](N Hearing Conservat ion Cln) OUTPATIENT [id number] 4 Audiogr am, 177A ARMANDOADIA 04/04 Released w/o Limitations [facility](N Hearing Conserv ation Cln) [facility] Physical Therapy) OUTPATIENT [id number] Back ARMAAN ORTEGA 04/05 Released w/o Limitations [facility] Physica l Therapy ) [facility] Med [facility]) OUTPATIENT [id number] 3 OHE, 226B, CBN [phone] PARUL ADA O 04/08 Released w/o Limitations [facility]) [facility] Wo Active Duty Team A) OUTPATIENT [id number] Neck, shoulde r, knee px MOMMAERTS, LIZ L 04/12 Released w/o Limitations [facility] 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 Procedure Procedure Type Code Date Perfomer Comments [facility] e SCREENING TEST, PURE TONE, AIR ONLY 10/27 DoD SCREENING TEST, PURE TONE, AIR ONLY 10/26 [facility] SIMPLE REPAIR OF SUPERFICIAL WOUNDS OF SCALP, NECK, AXILLAE, EXTERNAL GENITALIA, TRUNK AND/OR EXTREMITIES (INCLUDING HANDS AND FEET); 2.5 CM OR LESS 02/21 [facility] CIRCUMCISION 11/07 DoD OTHER PHOTOTHERAPY 11/07 [facility] BRIEF EMOTIONAL/BEHAVIORA L ASSESSMENT (EG, DEPRESSION INVENTORY, ATTENTION-DEFICIT/H YPERACTIVITY DISORDER [ADHD] SCALE), WITH SCORING AND DOCUMENTATION, PER STANDARDIZED INSTRUMENT 04/15 DoD PSYCHOTHERAPY, 60 MINUTES WITH PATIENT 04/08 [facility] SPIROMETRY, INCLUDING GRAPHIC RECORD, TOTAL AND TIMED VITAL CAPACITY, EXPIRATORY FLOW RATE MEASUREMENT(S), WITH OR WITHOUT MAXIMAL VOLUNTARY VENTILATION 04/08 [facility]D THERAPEUTIC PROCEDURE, 1 OR MORE AREAS, EACH 15 MINUTES; THERAPEUTIC EXERCISES TO DEVELOP STRENGTH AND ENDURANCE, RANGE OF MOTION AND FLEXIBILITY 04/05 [facility] PURE TONE AUDIOMETRY (THRESHOLD), AUTOMATED; AIR ONLY 04/04 [facility] APPLICATION OF A MODALITY TO 1 OR MORE AREAS; ELECTRICAL STIMULATION (UNATTENDED) 03/28 DoD APPLICATION OF A MODALITY TO 1 OR MORE AREAS; ELECTRICAL STIMULATION (UNATTENDED) 03/24 DoD THERAPEUTIC PROCEDURE, 1 OR MORE AREAS, EACH 15 MINUTES; THERAPEUTIC EXERCISES TO DEVELOP STRENGTH AND ENDURANCE, RANGE OF MOTION AND FLEXIBILITY 03/17 [facility] INJECTION(S), ANESTHETIC AGENT(S) AND/OR STEROID; TRIGEMINAL NERVE, EACH BRANCH (IE, OPHTHALMIC, MAXILLARY, MANDIBULAR) 03/10 [facility] THERAPEUTIC PROCEDURE, 1 OR MORE AREAS, EACH [...] ENDURANCE, RANGE OF MOTION AND FLEXIBILITY 02/16 [facility] GROUP PSYCHOTHERAPY (OTHER THAN OF A MULTIPLE-FAMILY [...] ENDURANCE, RANGE OF MOTION AND FLEXIBILITY 02/08 [facility] TELE ASSESS & MGT SRV PROV QUAL [...] MED DIS 12/14 DoD QUALIFIED NONPHYSICIAN HEALTH BUS AND RAIL OPERATOR ONLINE DIGITAL ASSESSMENT AND MANAGEMENT, FOR AN [...] WITH OR WITHOUT MAXIMAL VOLUNTARY VENTILATION 03/11 [facility] HOSPITAL OUTPATIENT CLINIC VISIT SPECIMEN COLLECTION FOR [...] WAIVER SERVICES; NOT OTHERWISE SPECIFIED (NOS) 12/10 [facility] SLEEP STUDY, UNATTENDED, SIMULTANEOUS RECORDING; MINIMUM [...] WAIVER SERVICES; NOT OTHERWISE SPECIFIED (NOS) 09/11 [facility] BRIEF COMM TECH-BASE SERV,E.G. VIRT CHK-IN,BY PHYS/OTH QUAL HCP,RPT E&M SERV,PROV TO EST PT,NOT ORIG FRM REL E/M SERV PROV W/IN PREV 7DAY NOR LEAD TO E/M SRV/PX W/IN NEXT 24HR/SOON YAMIL; 5-10 MIN DISC 09/01 [facility] ADMINISTRATION OF PATIENT-FOCUSED HEALTH RISK ASSESSMENT INSTRUMENT (EG, HEALTH HAZARD APPRAISAL) WITH SCORING AND DOCUMENTATION, PER STANDARDIZED INSTRUMENT 08/31 DoD CRUTCHES UNDERARM, OTHER THAN WOOD, ADJUSTABLE OR FIXED, PAIR, WITH PADS, TIPS AND HANDGRIPS 08/30 [facility] PATIENT EDUCATION, NOT OTHERWISE CLASSIFIED, NON-PHYSICIAN PROVIDER, GROUP, PER SESSION 08/26 DoD IMMUNIZATION ADM,INTRAMUSCULAR INJECTION OF SEVERE AC RESPIRATORY SYNDROME CORONAVIR 2 (SARSCOV-2) (CORONAVIR DIS [COVID-19]) VACC,MRNALNP,SPIKE PROT,PRESERVATIVE FREE,100 MCG/0.5ML DOSAG;SECOND DOSE 07/28 [facility] NUTRITION CLASSES, NON-PHYSICIAN PROVIDER, PER SESSION 07/24 [facility] OXYGEN UPTAKE, GAS ANALYSIS; REST, INDIRECT (SEPARATE PROCEDURE) 07/23 DoD WAIVER SERVICES; NOT OTHERWISE SPECIFIED (NOS) 07/15 [facility] IMMUNIZATION ADM,INTRAMUSCULAR INJECTION OF SEVERE AC RESPIRATORY SYNDROME CORONAVIR 2 (SARSCOV-2) (CORONAVIR DIS [COVID-19]) VACCINE,MRNALNP,SPI KE PROT,PRESERVATIVE FREE,100 MCG/0.5ML DOSAG;1ST DOSE 06/30 [facility] NEEDLE, STERILE, ANY SIZE, EACH 06/18 [facility] PURE TONE AUDIOMETRY (THRESHOLD), AUTOMATED; AIR [...] WAIVER SERVICES; NOT OTHERWISE SPECIFIED (NOS) 08/25 [facility] ADMINISTRATION OF PATIENT-FOCUSED HEALTH RISK ASSESSMENT INSTRUMENT [...] &/KIERA ASSESS FUNC OUTCOME TYP,20 MIN SPENT UMCN-RF-KVIB W PAT&/FAM 07/12 DoD APPLICATION OF A MODALITY TO 1 OR MORE AREAS; TRACTION, MECHANICAL 07/09 DoD APPLICATION OF A MODALITY TO 1 OR MORE AREAS; TRACTION, MECHANICAL 06/28 [facility] OSTEOPATHIC MANIPULATIVE TREATMENT (OMT); 1-2 BODY REGIONS INVOLVED 06/28 [facility]D ADMINISTRATION OF PATIENT-FOCUSED HEALTH RISK ASSESSMENT INSTRUMENT (EG, HEALTH HAZARD APPRAISAL) WITH SCORING AND DOCUMENTATION, PER STANDARDIZED INSTRUMENT 06/12 [facility] CHIROPRACTIC MANIPULATIVE TREATMENT (CMT); SPINAL, 3-4 REGIONS 06/01 [facility]D ADMINISTRATION OF PATIENT-FOCUSED HEALTH RISK ASSESSMENT INSTRUMENT (EG, HEALTH HAZARD APPRAISAL) WITH SCORING AND DOCUMENTATION, PER STANDARDIZED INSTRUMENT 05/30 [facility] SCREENING TEST, PURE TONE, AIR ONLY 05/15 [...] PROVIDE W/IN THE PREV 7 DAYS,USE THE INTERNET/[email or web address] NETWORK 05/22 DoD APPLICATION OF A MODALITY [...] OF LOW COMPLEXITY,TYPICALL Y,20 MIN ARE SPENT NWGA-DP-BDGQ W THE PATIENT &/FAMILY 03/28 DoD PURE [...] EQUIP) DIR ONE-ON-ONE CONT,EA 15 MINUTES 04/18 [facility] PURE TONE AUDIOMETRY (THRESHOLD), AUTOMATED; AIR ONLY 04/15 [facility] HEALTH AND BEHAVIOR INTERVENTION, EACH 15 MINUTES, BXVT-RY-EMNI; INDIVIDUAL 04/12 [facility] DETERMINATION OF REFRACTIVE STATE 04/07 DoD [...] L MONITOR, HEALTH-ORIENT QUESTIONNAIRES), EA 15 MIN [id number] W THE PATIENT; INIT ASSESSMENT 03/28 DoD TELE ASSESS & MGT SRV PROV QUAL NONPHYS HLTH CARE PRO TO EST PAT,PARENT,GUARD NOT ORIG REL ASSESS & MGT SRV PROV W/IN PREV 7 DAYS NOR LEAD ASSESS & MGT SRV/PX W/IN NXT 24H/SOON APT; 11-20 MIN MED DIS 03/25 [facility] Physical Therapy: ___ Se ion Segments, 15 Minutes Each Physical Therapy: ___ Session Segments, 15 Minutes Each [id number] 05/22 THI NESS [facility] Non-Physician Phone Call To Patient/Provider Brief (5-10min) Non-Physician Phone Call To Patient/Provider Brief (5-10min) 95155 05/20 KAYLIE EVANS [facility] Modalities Heat Hot Packs Modalities Heat Hot Packs 14906 05/17 THI NESS [facility] Physical Therapy: ___ Se ion Segments, 15 Minutes Each Physical Therapy: ___ Session Segments, 15 Minutes Each 38361 05/17 THI NESS Modalities Heat Hot Packs Modalities Heat Hot Packs 05048 05/12 THI NESS Physical Therapy: ___ Se ion Segments, 15 Minutes Each Physical Therapy: ___ Session Segments, 15 Minutes Each 10109 05/12 THI NESS Phys Therapy Education Self Care Training - Per 15 Minutes Phys Therapy Education Self Care Training - Per 15 Minutes 53173 04/18 BILLY DON Exercises A isted Exercises For ROM Exercises Assisted Exercises For ROM 32267 04/18 BILLY DON Physical Medicine Physical Therapy Evaluation Physical Medicine Physical Therapy Evaluation 78571 04/18 BILLY DON Patient education, not otherwise cla ified, non-physician provider, group, per se ion 04/17 MADHAVI ORTIZ Threshold Audiogram (Pure Tone) Automated Threshold Audiogram (Pure Tone) Automated [id number] 04/17 MADHAVI ORTIZ Non-Physician Phone Call To Pt/Provider Intermed (11-20 min) Non-Physician Phone Call To Pt/Provider Intermed (11-20 min) 06980 04/14 KAYLIE EVANS Health And Behavior Intervention, Each 15 Minutes Individual Health And Behavior Intervention, Each 15 Minutes Individual 83788 04/11 JASON GUERRA Ophthalmological New Patient Start Comprehensive Care Ophthalmological New Patient Start Comprehensive Care 26619 04/07 TOBIN FRAGA Determination Of Refractive State Determination Of Refractive State 94246 04/07 TOBIN FRAGA Health And Behav A e mt Each 15 Min Initial A e ment Health And Behav Assessmt Each 15 Min Initial Assessment 00030 04/05 JASON GUERRA Non-Physician Phone Call To Pt/Provider Intermed (11-20 min) Non-Physician Phone Call To Pt/Provider Intermed (11-20 min) 10662 03/30 KAYLIE EVANS Audiogram (Screening) Audiogram (Screening) 32069 10/28 WINTER WIN [facility] Physical Therapy: ___ Se ion Segments, 15 Minutes Each Physical Therapy: ___ Session Segments, 15 Minutes Each 93676 07/13 MIGUEL PETERSON Modalities Cryotherapy Cold Packs Modalities Cryotherapy Cold Packs 39910 07/13 MIGUEL PETERSON Physical Therapy Gait Training Physical Therapy Gait Training 51660 07/13 MIGUEL PETERSON Physical Medicine - Group Physical Therapy Se ion Physical Medicine - Group Physical Therapy Session 04479 07/09 TALHA FRANKLIN [facility] Threshold Audiogram (Pure Tone) Automated Threshold Audiogram (Pure Tone) Automated [id number] 07/02 FLIP KWAN [facility] Patient education, not otherwise cla ified, non-physician provider, group, per se JAM Aguero [facility] Brief communication technology-based service, e.g. virtual check-in, [...] 5-10 minutes of medical discu CLIFTON Mon [facility] Waiver services; not otherwise specified (NOS) YISSEL BALLESTEROS [facility] Spirometry Spirometry 91435 LYN LEWIS [facility] Non-Physician Phone Call To Patient/Provider Brief (5-10min) Non-Physician Phone Call To Patient/Provider Brief (5-10min) 33671 LARRY ELAINE [facility] Sleep Study Unattended Record: Heart Rate, O2 Saturation, Respiratory Analysis Sleep Study Unattended Record: Heart Rate, O2 Saturation, Respiratory Analysis 61910 ANGELES DALY [facility] Hospital outpatient clinic visit specimen collection for severe acute respiratory syndrome coronavirus 2 (sars-cov-2) (coronavirus disease [covid-19]), any specimen source TAZ GODOY [facility] Threshold Audiogram (Pure Tone) Automated Threshold Audiogram (Pure Tone) Automated [id number] BELÉN COREY [facility] Non-Physician Phone Call To Pt/Provider Intermed (11-20 min) Non-Physician Phone Call To Pt/Provider Intermed (11-20 min) 46216 PAPITO VASQUEZ [facility] Psychometric Neuropsych Testing Battery Admin By Computer Psychometric Neuropsych Testing Battery Admin By Computer 96077 LINDA RUDOLPH [facility] Supervised Injection Intramuscular Antibiotic Supervised Injection Intramuscular Antibiotic 14051 DRAKE DOWNING Verified pt's 6 rights. Pt [...] in waiting room 10 mins after injection. [facility] Chiropractic Manip Treatmt (CMT) Spinal Three To Four Region Chiropractic Manip Treatmt (CMT) Spinal Three To Four Region 39210 JARRET LERNER Mobilization Soft Ti ue Mobilization Soft Tissue 36537 JARRET LERNER 8 minutes [facility] Modalities Electrical Stimulation Unattended Modalities Electrical Stimulation Unattended 31569 JARRET LERNER Modalities Heat Hot Packs Modalities Heat Hot Packs 32908 JARRET LERNER Osteopathic Manip Treatment (OMT) 1-2 Body Regions Involved Osteopathic Manip Treatment (OMT) 1-2 Body Regions Involved 63337 ARMAAN ORTEGA Physical Therapy: ___ Se ion Segments, 15 Minutes Each Physical Therapy: ___ Session Segments, 15 Minutes Each 23128 ARMAAN ORTEGA Exercise equipment ARMAAN ORTEGA Corticosteroid Injection Interlaminar Approach Lumbar Corticosteroid Injection Interlaminar Approach Lumbar 53550 RANDY SANCHEZ Corticosteroid Inj Interlaminar Lumbar L4 - L5 Corticosteroid Inj Interlaminar Lumbar L4 - L5 91941 RANDY SANCHEZMIROSHYAM [facility] Physical Medicine Physical Therapy Re-Evaluation Physical Medicine Physical Therapy Re-Evaluation 45117 ARMAAN ORTEGA Shaving Of Lesion Ankles .6 to 1cm Shaving Of Lesion Ankles .6 to 1cm 83856 RUCHI HOLLEY After explaining the nature of [...] Sterile dressing applied and wound care discussed. [facility] Destruction Of Benign Lesion By Any Method 1 - 14 Lesions Destruction Of Benign Lesion By Any Method 1 - 14 Lesions 25258 RUCHI HOLLEY After verbally discussing reason for [...] ointment application to healing crusts if desired. [facility] Psychiatric Therapy Group (Interactive) Psychiatric Therapy Group (Interactive) 13734 BERNARDA CHOWDHURY [facility] [phone]. SM was not assessed individually for this encounter. SM fully participated in the [facility]. Topics presented included [...] and Online Resources and Back Facts handouts. [facility] Integumentary Procedures facial dermabrasion Segmental Face Integumentary Procedures facial dermabrasion Segmental Face 43060 RUCHI HOLLEY [facility] Nerve Block Trigeminal Nerve Block Trigeminal 25727 RUCHI HOLLEY [facility] Mobilization Soft Ti ue Mobilization Soft Tissue 15561 ARMAAN ORTEGA [facility] Health And Behavior Intervention, Each 15 Minutes Individual Health And Behavior Intervention, Each 15 Minutes Individual 91179 10/21 BERTA BOWER [facility] Health And Behav A e mt Each 15 Min Initial A e ment Health And Behav Assessmt Each 15 Min Initial Assessment 44510 10/21 BERTA BOWER [facility] Physical Medicine Physical Therapy Re-Evaluation Physical Medicine Physical Therapy Re-Evaluation 13452 07/12 ERICK BRENNAN [facility] Traction Equipment Traction Equipment [id number] 07/08 MATTHEW LLAMAS [facility] Traction Equipment Traction Equipment [id number] 06/27 MATTHEW LLAMAS [facility] Osteopathic Manip Treatment (OMT) 1-2 Body Regions Involved Osteopathic Manip Treatment (OMT) 1-2 Body Regions Involved 38254 06/27 ERICK BRENNAN [facility] Physical Therapy: ___ Se ion Segments, 15 Minutes Each Physical Therapy: ___ Session Segments, 15 Minutes Each 77590 06/27 ERICK BRENNAN Chiropractic Manip Treatmt (CMT) Spinal Three To Four Region Chiropractic Manip Treatmt (CMT) Spinal Three To Four Region 54062 06/01 RIAN SIMMS Internet Med Svc Qual Nonphys Healthcare Prof Estab Patient Internet Med Svc Qual Nonphys Healthcare Prof Estab Patient 07110 05/29 ANGELES SCHWARZ Audiogram (Screening) Audiogram (Screening) 17008 05/14 SAHIL BROTHERS [facility] Physical Therapy: ___ Se ion Segments, 15 Minutes Each Physical Therapy: ___ Session Segments, 15 Minutes Each 10337 05/09 MATTHEW LLAMAS Physical Therapy: ___ Se ion Segments, 15 Minutes Each Physical Therapy: ___ Session Segments, 15 Minutes Each 58524 05/01 ERICK BRENNAN Physical Medicine Physical Therapy Re-Evaluation Physical Medicine Physical Therapy Re-Evaluation 29048 05/01 ERICK BRENNAN Modalities Heat Hot Packs Modalities Heat Hot Packs 78394 04/24 CATALINA MCDERMOTT Physical Therapy: ___ Se ion Segments, 15 Minutes Each Physical Therapy: ___ Session Segments, 15 Minutes Each 40774 04/24 CATALINA MCDERMOTT Threshold Audiogram (Pure Tone) Automated Threshold Audiogram (Pure Tone) Automated [id number] 04/19 DREAD CALIX Patient education, not otherwise cla ified, non-physician provider, individual, per se ion 04/19 DREAD CALIX Modalities Heat Hot Packs Modalities Heat Hot Packs 97110 04/11 ASUNCION POST Physical Therapy: ___ Se ion Segments, 15 Minutes Each Physical Therapy: ___ Session Segments, 15 Minutes Each 47431 04/11 ASUNCION POST Physical Therapy: ___ Se ion Segments, 15 Minutes Each Physical Therapy: ___ Session Segments, 15 Minutes Each 49302 04/03 CATALINA MCDERMOTT Non-Physician Phone Call To Patient/Provider Brief (5-10min) Non-Physician Phone Call To Patient/Provider Brief (5-10min) 45148 03/28 JOCELINE ESPINO Physical Therapy: ___ Se ion Segments, 15 Minutes Each Physical Therapy: ___ Session Segments, 15 Minutes Each 70231 03/19 CATALINA MCDERMOTT Chiropractic Manip Treatmt (CMT) Spinal Three To Four Region Chiropractic Manip Treatmt (CMT) Spinal Three To Four Region 18194 03/19 RIAN SIMMS Physical Therapy: ___ Se ion Segments, 15 Minutes Each Physical Therapy: ___ Session Segments, 15 Minutes Each 42543 03/09 ERICK BRENNAN Non-Physician Phone Call To Patient/Provider Brief (5-10min) Non-Physician Phone Call To Patient/Provider Brief (5-10min) 08374 02/27 JOCELINE ESPINO Non-Physician Phone Call To Patient/Provider Brief (5-10min) Non-Physician Phone Call To Patient/Provider Brief (5-10min) 51114 01/09 GERARDO LYLE Chiropractic Manip Treatmt (CMT) Spinal Three To Four Region Chiropractic Manip Treatmt (CMT) Spinal Three To Four Region 19994 08/31 RIAN SIMMS Chiropractic Manip Treatmt (CMT) Spinal Three To Four Region Chiropractic Manip Treatmt (CMT) Spinal Three To Four Region 08213 08/15 RIAN SIMMS Chiropractic Manip Treatmt (CMT) Spinal Three To Four Region Chiropractic Manip Treatmt (CMT) Spinal Three To Four Region 28071 07/13 RIAN SIMMS Internet Med Svc Qual Nonphys Healthcare Prof Estab Patient Internet Med Svc Qual Nonphys Healthcare Prof Estab Patient 60439 06/16 ANGELES SCHAWRZ Chiropractic Manip Treatmt (CMT) Spinal Three To Four Region Chiropractic Manip Treatmt (CMT) Spinal Three To Four Region 01736 06/13 RIAN SIMMS Chiropractic Manip Treatmt (CMT) Spinal One To Two Regions Chiropractic Manip Treatmt (CMT) Spinal One To Two Regions 25098 06/01 RIAN SIMMS Internet Med Svc Qual Nonphys Healthcare Prof Estab Patient Internet Med Svc Qual [facility] Prof Estab Patient 92539 05/30 BRADLY FRENCH Modalities Heat Hot Packs Modalities Heat Hot Packs 95183 05/28 JOCELINE CERVANTES Physical Therapy: ___ Se ion Segments, 15 Minutes Each Physical Therapy: ___ Session Segments, 15 Minutes Each 57084 05/21 JOCELINE CERVANTES Modalities Heat Hot Packs Modalities Heat Hot Packs 23493 05/21 JOCELINE CERVANTES Acoustic Reflex Testing Acoustic Reflex Testing 79266 05/18 JOCELINE AKERS Tympanometry Tympanometry 88888 05/18 JOCELINE AKERS Comprehensive Audiometry Comprehensive Audiometry 16876 05/18 JOCELINE AKERS Chiropractic Manip Treatmt (CMT) Spinal Three To Four Region Chiropractic Manip Treatmt (CMT) Spinal Three To Four Region 93491 05/16 RIAN SIMMS Modalities Heat Hot Packs Modalities Heat Hot Packs 83331 05/14 JOCELINE CERVANTES Physical Therapy: ___ Se ion Segments, 15 Minutes Each Physical Therapy: ___ Session Segments, 15 Minutes Each 89570 05/14 JOCELINE CERVANTES Threshold Audiogram (Pure Tone) Automated Threshold Audiogram (Pure Tone) Automated [id number] 04/11 BHAVNA ORTEGA Patient education, not otherwise cla ified, non-physician provider, group, per se ion 04/11 BHAVNA ORTEGA Exercises A isted Exercises For ROM Exercises Assisted Exercises [place] ROM 64141 03/28 BILLY DON Threshold Audiogram (Pure Tone) Automated Threshold Audiogram (Pure Tone) Automated 0208T 03/27 TAMIKO WILSON Patient education, not otherwise cla ified, non-physician provider, group, per se ion 03/27 TAMIKO WILSON Non-Physician Phone Call To Pt/Provider Intermed (11-20 min) Non-Physician Phone Call To Pt/Provider Intermed (11-20 min) 19910 03/23 DARINEL BROWNLEE [facility] Non-Physician Phone Call To Patient/Provider Brief (5-10min) Non-Physician Phone Call To Patient/Provider Brief (5-10min) 44180 11/01 CARLOS REBEL HORN [facility] Non-Physician Phone Call To Patient/Provider Brief (5-10min) Non-Physician Phone Call To Patient/Provider Brief (5-10min) 37006 10/04 FLORA MAYTE KRISH [facility] Non-Physician Phone Call To Patient/Provider Brief (5-10min) Non-Physician Phone Call To Patient/Provider Brief (5-10min) 66612 07/28 KAYLIE EVANS [facility] Physical Medicine Physical Therapy Re-Evaluation Physical Medicine Physical Therapy Re-Evaluation 53929 06/15 BILLY DON [facility] Physical Therapy: ___ Se ion Segments, 15 Minutes Each Physical Therapy: ___ Session Segments, 15 Minutes Each 61880 05/30 THI NESS [facility] Modalities Heat Hot Packs Modalities Heat Hot Packs 70279 05/22 THI NESS [facility] Supervised Injection Intramuscular Antibiotic Supervised Injection Intramuscular Antibiotic 39140 CHRISTINE COHN [facility] Health And Behavior A e ment, Each 15 Minutes Health And Behavior Assessment, Each 15 Minutes 68549 FRED FRENCH [facility] Health And Behav A e mt Each 15 Min Initial A e ment Health And Behav Assessmt Each 15 Min Initial Assessment 14980 FRED FRENCH [facility] Osteopathic Manip Treatment (OMT) 3-4 Body Regions Involved Osteopathic Manip Treatment (OMT) 3-4 Body Regions Involved 72623 RITA ANDREWS [facility] Modalities Electrical Stimulation Attended Each 15 Minutes Modalities Electrical Stimulation Attended Each 15 Minutes 71791 RITA ANDREWS [facility] Physical or manipulative therapy performed for maintenance rather than yazidism RITA ANDREWS [facility] Needle, sterile, any size, each RITA ANDREWS [facility] Preventive Medicine Physical Exam Vital Signs Recorded Preventive Medicine Physical Exam Vital Signs Recorded LINDSAY NORMAN [facility] Pulmonary Function - O2 Uptake - Gas Analysis Pulmonary Function - O2 Uptake - Gas Analysis 44867 LINDSAY NORMAN [facility] Nutrition cla es, non-physician provider, per se ion JAM CARLTON [facility] Health And Behavior Intervention, Each 15 Minutes Individual Health And Behavior Intervention, Each 15 Minutes Individual 26112 BERTA BOWER III, Dr. Supervised Injection Intramuscular Supervised Injection Intramuscular 45480 LINDSAY CRESPO Please give 30mg IM Ketorolac in clinic now. [facility] Injection, ketorolac tromethamine, per 15 mg LINDSAY CRESPO [facility] Patient education, not otherwise cla ified, non-physician provider, individual, per se ion PASTOR AGUILAR [facility] Social History Combined list of available smoking, tobacco, and other social history from Department of Defense and Veterans Affairs facilities. Social History Type Response Date Comment Sour e This section is an empty social history section. [facility]
--- OUTSIDE RECORDS SUMMARY | 2024-07-12 11:23 | XMS_ITS | Clinical Summary ---
Author Organization [facility] Address [address] [place] [address] Care Team Providers Care Over The Road Driver Name Role Phone Unavailable Primary Care Provider [...]
--- OUTSIDE RECORDS SUMMARY | 2024-07-12 11:23 | XMS_ITS | Patient Health Record ---
Author Organization [facility] Address [address] [place] [address] Care Team Providers Care Job Placement Specialist Name Role Phone Ginger ROQUE, Sharon Sewell Primary Care Provider Un available Talisha Lau Unavailable [phone] Waldemar Neri Unavailable [phone] aDvid Garcia Unavailable [phone] Allergies No Known Allergies Results Component Value Reference Range Notes X ray : Foot, right 3V Reviewed date:07/09/2024 04:22:55 PM Interpretation:See Examination above Performing Lab: Notes/Report: See Examination above X ray : Foot, left 3V Reviewed date:07/09/2024 04:23:04 PM Interpretation:See Examination above Performing Lab: Notes/Report: See Examination above Reason For Referral Diagnosis 1 Pain in unspecified foot (M79.673) Referring Provider First Name Sharon Decker Referring Provider Last Name Ginger Referring Provider Speciality Internal M edicine Referred Organization [facility] Referred Provider Talsiha Lau Referred Address [address] [facility],[place], [place],[address], Referred Provider Specialty Podiatry Referral Priority Routine Medications Medication SIG (Take, Route, Fr equency, Duration) Notes Start Date End Date Status Adderall XR Active Testosterone Active buPROPion HCl Active Custom Orthotics as directed 07/09/2024 Active Social History Tobacco Use: Social History Observation Description Date Details (start date - stop date) Never Smoker NA - NA Tobacco use other than smoking: Question Answer Notes Are you an other tobacco user? No Tobacco Control (Standard) Question Answer Notes Tobacco use: Nonsmoker Additional Findings: Tobacco non-user Current no nsmoker AUDIT-C (Standard) Question Answer Notes Did you have a drink containing alcohol in the p ast year? 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) Plantar fasciitis, bilateral (M72.2) Active confirmed Vital Signs Blood pressure diastolic 70 mm Hg 07/09/2024 Height 6 ft in 07/09/2024 Blood pressure systolic 130 mm Hg 07/09/2024 Weight 228 lbs 07/09/2024 BMI 30.92 kg/m2 07/09/2024 Encounters Encounter Location Date Provider Diagnosis [address] [address] 07/09/2024 Talisha Black Pain in right foot M79.671 ; Plantar fasciitis, bilateral M72.2 ; Other myositis of right foot M60.871 ; Bursitis of right foot M77.51 ; Pain in left foot M79.672 ; Other myositis of left foot M60.872 ; Bursitis of left foot M77.52 ; Pain in right foot M79.671 ; Neuritis of right foot G57.91 and Neuritis of left foot G57.[address] [facility] [address] 07/09/2024 Talisha [facility] [address] 02/05/2024 Talisha Black [facility] [address] 02/15/2024 Talisha Black [address] [address] 04/11/2024 David Garcia [address] [address] 07/02/2024 Talisha Lau Assessments Encounter Date Diagnosis (ICD Code) Assessment Notes Treatment Notes Treatment Clinical Notes Section Notes 07/09/2024 Pain in right foot (ICD-10 - M79.671) 07/09/2024 Other myositis of right foot (ICD-10 - M60.871) 07/09/2024 Plantar fasciitis, bilateral (ICD-10 - M72.2) Patient Educated with: HEEL CORD STRETCHES.pdf (HEEL CORD STRETCHES.pdf) Patient Educated with: RICE THERAPY.pdf (RICE THERAPY.pdf) 07/09/2024 Bursitis of right foot (ICD-10 - M77.51) 07/09/2024 Pain in left foot (ICD-10 - M79.672) 07/09/2024 Other myositis of left foot (ICD-10 - M60.872) 07/09/2024 Bursitis of left foot (ICD-10 - M77.52) 07/09/2024 Pain in right foot (ICD-10 - M79.671) 07/09/2024 Neuritis of right foot (ICD-10 - G57.91) 07/09/2024 Neuritis of left foot (ICD-10 - G57.92) Plan Of Treatment No Information Insurance Providers Payer Name Payer Address Payer Phone Subscriber Number Group Number Insured Name Patient Relationship to Insured Coverage Start Date Coverage End Date [facility] [address] [place] [id number] Naseem Aguilar Self - patient is the insured Medical (General) History Medical History History ICD Code Anxiety Back,Hip,and Knee pain covid-19 Depression Headaches/Migraines Reflux ( GERD) Sciatica Vascular phlebitis (clots) [facility]
--- OUTSIDE RECORDS SUMMARY | 2024-07-12 11:23 | XMS_ITS ---
Author Organization [facility] Address [address] [place] [address] Care Team Providers Care Hall Clerk Name Role Phone Ginger ROQUE, Sharon Sewell Primary Care Provider Un available Black, Talisha Unavailable [phone] REASON FOR VISIT Need PA Encounters Encounter Location Date Provider Diagnosis [facility] [address] [place] [address] 07/09/2024 Talisha Black Plan Of Treatment No Information Progress Notes * Naseem MEHTA RDOB:[birth year] (28 yo M)Acc No.[id number]:07/09/2024 Patient:?Naseem MEHTA :1995???Age:28 Y???Sex:Male Address:[address] [place] [id number] * * Date:?
--- OUTSIDE RECORDS SUMMARY | 2024-07-12 11:24 | XMS_ITS | Clinical Summary ---
Author Organization [facility] Address [address] [place] [address] Care Team Providers Care Material Control Manager Name Role Phone Unknown Primary Care Provider [...] Department Care Team Description 05/02/2024 Transcribe Orders [facility] Pulmonary [facility] [address] [facility] [address] [place] [address] Sharon Miles MD Bilateral pulmonary [...] Description 08/01/2024 8:00 AM EDT Office Visit [facility] [place] [address] [place] [phone] Forrest Campos MD [address] [place], [place] [phone] Health Maintenance Due Date Last Done Comments Hepatitis C Virus Screening 1995 HIV Screening 11/02/2007 DTaP/Tdap/Td Vaccines (1 - Tdap) 2013 Hepatitis B Vaccines (1 of 3 - 19+ 3-dose series) 2013 COVID-19 Vaccine ( - season) 2023 03/12/2021, 07/28/2020, 06/30/2020 Influenza Vaccine 10/04/2024 12/17/2021, , 12/19/2019, Additional history exists HPV Vaccines Aged Out No longer eligi ble based on patient's age to complete this topic Pneumococcal Vaccine: Pediatric (0-5 Years) and At-Risk Patients (6 to 49 Years) Aged Out No longer eligible based on patient's age to complete this topic Insurance ACTIVE DUTY ACTIVE DUTY Care Teams Material Control Manager Relationship Specialty Start Date End Date Unknown Unknow Provider Address PCP - General 01/10/23
--- OUTSIDE RECORDS SUMMARY | 2024-07-12 11:24 | XMS_ITS ---
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 Generated for Printi ng/Faxing/eTransmitting on:?07/12/2024 11:23 AM EDT
--- OUTSIDE RECORDS SUMMARY | 2024-07-12 11:24 | XMS_ITS ---
[facility] Address [address] [place] [address] Care Team Providers Care Electronic Intelligence Officer Name Role Phone Ginger ROQUE, Sharon Sewell Primary Care Provider Un available Black, Talisha Unavailable [phone] Allergies No Known Allergies Results Component Value Reference Range Notes X ray : Foot, left 3V Reviewed date:07/09/2024 04:23:04 PM Interpretation:See Examination above Performing Lab: Notes/Report: See Examination above X ray : Foot, right 3V Reviewed date:07/09/2024 04:22:55 PM Interpretation:See Examination above Performing Lab: Notes/Report: See Examination above REASON FOR VISIT pcp-06/28, Heel pain, Foot pain Medications Medication SIG (Take, Route, Fr equency, [...] Problem Status W/U Status Risk Notes Problem 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) Plantar fasciitis, bilateral (M72.2) Active confirmed Problem Mononeuropathy of lower limb (682447853) Neuritis of right foot (G57.91) Active confirmed Problem [id number] Neuritis of left foot (G57.92) Active confirmed Vital Signs Blood pressure systolic 130 mm Hg 07/10/19 25 Blood pressure diastolic 70 mm Hg 025 Height 6 ft in 07/09/2024 Weight 228 lbs 07/09/2024 BMI 30.92 kg/m2 07/09/2024 Encounters Encounter Location Date Provider Diagnosis [facility] [address] 07/09/2024 Talisha Black Pain in right foot M79.671 ; Plantar fasciitis, bilateral M72.2 ; Other myositis of right foot M60.871 ; Bursitis of right foot M77.51 ; Pain in left foot M79.672 ; Other myositis of left foot M60.872 ; Bursitis of left foot M77.52 ; Pain in right foot M79.671 ; Neuritis of right foot G57.91 and Neuritis of left foot G57.92 Assessments Encounter Date Diagnosis (ICD Code) Assessment Notes Treatment Notes Treatment Clinical Notes Section Notes 07/09/2024 Pain in right foot (ICD-10 - M79.671) 07/09/2024 Plantar fasciitis, bilateral (ICD-10 - M72.2) Patient Educated with: HEEL CORD STRETCHES.pdf (HEEL CORD STRETCHES.pdf) Patient Educated with: RICE THERAPY.pdf (RICE THERAPY.pdf) 07/09/2024 Other myositis of right foot (ICD-10 - M60.871) 07/09/2024 Bursitis of right foot (ICD-10 - M77.51) 07/09/2024 Pain in left foot (ICD-10 - M79.672) 07/09/2024 Other myositis of left foot (ICD-10 - M60.872) 07/09/2024 Bursitis of left foot (ICD-10 - M77.52) 07/09/2024 Pain in right foot (ICD-10 - M79.671) 07/09/2024 Neuritis of right foot (ICD-10 - G57.91) 07/09/2024 Neuritis of left foot (ICD-10 - G57.92) Plan Of Treatment Medication Medication Name Sig Start Date Stop Date Notes Custom Orthotics as directed 07/09/2024 Treatment Notes Assessment Notes Plantar fasciitis, bilateral Patient Edu cated with: HEEL CORD STRETCHES.pdf (HEEL CORD STRETCHES.pdf) Patient Educated with: RICE THERAPY.pdf (RICE THERAPY.pdf) Next Appt Details Follow Up: after approval fr insurance, Reason: Orthotic Disp/fit/eval Progress Notes * Naseem MEHTA RDOB:[birth year] (28 yo M)Acc No.[id number]:07/09/2024 Progress Notes Patient:?Naseem MEHTA R Provider:?Talisha Lau DPM :1995???Age:28 Y???Sex:Male Juan Jose e:07/09/2024 Address:[address] [place], [place] [id number] Pcp:Emma Molina Subjective: * Chief Complaints: * ???Pcp-06/28Heel painFoot pa in * HPI: ???Heel pain:?Nature:?tenderness, sharp pain, stiffness.?Location:?Proximal plantar aspect of Heel , B/L.?Duration:?, several years.?Course:?worse.?Aggravated:?standing, walking, walking first thing in the morning/after rest.?Treatments:?rest/alter normal daily activity.?Foot Pain:?Nature:?burning , radiating , shooting , tingling.?Location:?Top , Midfoot ,, B/L.?Duration:?, several months.?Onset:?unknown.?Course:?worse.?Aggravated:?any pressure.?Treatments:?rest/alter normal daily activity.? * ROS:?General/Constitutional:?Nausea?denies.?Vomiting?denies.?Hunger Thirst?denies.?Loss appetite?denies.?Chills?denies.?Fatigue?denies.?Fever?denies.?Night Sweats?denies.?Unexplained weight loss?denies.?Unexplained weight gain?denies.?HEENTM:?Dentures?denies.?Dizziness?denies.?Glasses/contacts?denies.?Retinopathy?de nies.?Blurred/double vision?denies.?TMJ?denies.?Discharge/drainage?denies.?Implants?denies.?Sore throat?denies.?Dental implants?denies.?Hard of hearing ?denies.?Difficulty chewing/swallowing/speaking?denies.?Nose bleeds?denies.?Sore mouth?denies.?Respiratory:?On Oxygen?denies.?Pneumonia/pleurisy?denies.?Bronchitis?denies.?Emphysema?denies.?C oughing?denies.?Cough blood?denies.?Shortness of breath?admits.?Wheezing?denies.?Cardiovascular:?Pacemaker?denies.?MVP?denies.?WPW?denies.?CHF?denies.?Heart attack?denies.?Septal defect?denies.?Rapid beat?denies.?Chest pain ?admits.?Atrial Fib.?denies.?Murmur/Palpitations?denies.?Gastrointestinal:?Hemorrhoids?denies.?Stomach/Abdominal pain?denies.?Dark blood stool?denies.?Irritable bowel ?denies.?Constipation?denies.?Diarrhea?denies.?Hematology:?Swelling?denies.?Clots?denies.?Varicose Veins?denies.?Bruising?denies.?Bleeding problem?denies.?Genitourinary:?Blood urine?denies.?Frequent/Painfu/urination/bladder control?denies.?Kidney stones?denies.?Infection (UTI)?denies.?Nephropathy?denies.?sex trans dis (STD)?denies.?Prostate?denies.?Musculoskeletal:?Hammertoes?denies.?Bunions?denies.?Back Pain?admits.?Muscle Cramps/ Resting?admits.?Muscle cramps / walking?admits.?Generalized aches and pains?admits.?Weakness?denies.?Integ.:?Gray?denies.?Scars?denies.?Corns/calluses?denies.?Ingrown nails?denies.?Painful nails?denies.?Open Sores?denies.?Rashes?denies.?Neurologic:?Difficulty sleeping?admits.?Brain disorder?denies.?Numbness?admits.?Balance trouble?denies.?Confusion?denies.?Fainting/blackouts?denies.?Tingling?admits.?Tr emors?denies.? * Medical History:? * Surgical History:?Ariane davis Surgical History * Hospitalization/Major Diagno stic Procedure:?[facility] 03/30 * Family History:?Mother: doroteo lopez.?Father: alive.? * Social History:?Tobacco Use:?Tobacco use other than smoking?Are you an other tobacco user??No ?Tobacco Control (Standard)?Tobacco use:?Nonsmoker ?Additional Findings: Tobacco non-user?Current nonsmoker ???Drugs/Alcohol:?Drugs?Have you used drugs other than those for medical reasons in the past 12 months??No ???Miscellaneous:?Caffeine: yes, frequency:. ?Children: no. ?Exercise: yes, walking, gym. ?Marital status: Single. ?Occupation: . ???Drug/Alcohol:?AUDIT-C (Standard)?Did you have a drink containing alcohol in the past year??No ?Points?0 ?Interpretation?Negative * Medications:?TakingbuPROPion HCl Testosterone Adderall XR Medication List reviewed and reconciled with the patientTaking buPROPion HCl Taking Testosterone Taking Adderall XR Medication List reviewed and reconciled with the patient * Allergies:?N.K.D.A.yes[Aller gies Verified] Objective: * Vitals:?Ht: 6 ft, Wt:228, BM I:30.92, Shoe size: 12.5, BP:130/70mm Hg, Ht-cm: 182.88 cm, Wt-k.42 kg. * Examination: ???General Examination: ?GENERAL APPEARANCE:?Reveals a pleasant, alert, well nourished, well- developed, well hydrated individual, who demonstrates proper attention to hygiene/body habitus, and is in no acute distress, Pt serves as own historian for office visit today.?ORIENTED:?person, place, and time.?Neurological: ?SENSORY:?Neurological exam demonstrates reduced sharp/dull pin prick discrimination reduced light touch sensation reduced vibration sensation reduced proprioception sensation in a stocking fashion 5.07 monofilament test performed at plantar aspects of 5 varied sites per foot shows sensation plantar aspects absent at Forefoot B/L, Pt relates, numbness, pins and needles sensation, shooting/radiating sensation, B/L midfooy.?TINEL'S COMPRESSION:?Negative tarsal tunnel, bessy pedis, and medial calcaneal nerves , Positive , Medial dorsal cutaneous nerve distribution , Intermediate dorsal cutaneous nerve distribution , Right.?Orthopedic: ?MUSCLE STRENGTH:?5/5 all groups in a symmetrical fashion, B/L.?GAIT ABNORMALITY:? antalgic,Supinated,adducted angle and base of gate,B/L.?FOOT MORPHOLOGY:?, Prominent, painful 1st Met-Cuneiform joint WITH inflammation b/l, Pes Cavus structure, B/L.?DIGITAL DEFORMITIES:?Digital contracture, PIPJ, 2-5 B/L, incompl-reducible with WB, or to push-up test, no over, nor underlapping.?FOOTWEAR EVALUATION:?shoe gear properties exacerbate patients foot/toe deformity , shoe gear properties exacerbate patients foot/toe deformity.?Heel Pain: ?INSPECTION REVEALS:?Pain on Palpation to Plantar Fascia med. and central bands, intrinsic musc., infra-calcaneal bursa, and med calc tubercle, B/L, No pain: posterior/superior heel, achilles bursa/tendon, sinus tarsi, peroneals, or with lateral heel compression; no limited STJ ROM, calor, or ecchymosis, B/L.?Neuroma Pain: ?PALPATION:?No interspace pain noted on palpation.?X-Rays - IMAGING REPORT: ?Clinical Indication(s):? Evaluate for Fracture, Evaluate Biomechanical Deformity ,.?Views:?3 views of Foot, LAT, LO, MO , B/L??Taken by trained?Podiatric Process Development Engineer (?KL ),.?Findings:?normal bone and soft tissue density consistent for patients age and sex,.?Foot structure:?reveals cavus foot structure with, posterior break in cyma line.?Digits:?show asymmetrical joint space narrowing at the PIPJ consistent with clinical finding of hammertoe deformity, show synostosis at the DIPJ, 4th digit, 5th digit b/l.?Fracture:?Negative fractures identified, old fx head of the proximal phalange b/l.? Assessment: * Assessment: 1.?Pain in right foot - M79. 671???2.?Other myositis of right foot - M60.871???3.?Plantar fasciitis, bilateral - M72.2 (Primary)???Specify :Acute problem, Complicated w/ Multiple Tx Options(4),Dx New problem, Prognosis Uncertain (4)???4.?Bursitis of right foot - M77.51???5.?Pain in left foot - M79.672???6.?Other myositis of left foot - M60.872???7.?Bursitis of left foot - M77.52???8.?Pain in right foot - M79.671???9.?Neuritis of right foot - G57.91???Specify :Acute problem, Complicated w/ Multiple Tx Options(4),Dx New problem, Prognosis Uncertain (4)???10.?Neuritis of left foot - G57.92??? Plan: * Treatment: 2.?Pain in right foot?Imaging: X ray : Foot, right 3V (Performed Date - 07/09/2024)?See Examination above 3.?Pain in left foot?Imaging: X ray : Foot, left 3V (Performed Date - 07/09/2024)?See Examination above * Procedure Codes:?41162 X-RAY EXAM OF RIGHT FOOT 3V, Modifiers: 26 , LL88703 X- RAY EXAM OF LEFT FOOT 3V, Modifiers: 26 , LT * Preventive Medicine:? ??Counseling:?Discussion:?-04: Office or other outpatient visit for the evaluation and management of a new patient, which required a medically appropriate history and/or examination and MODERATE level of DECISION MAKING for: 1 OR MORE CHRONIC PROBLEM(S) THATS WORSENING, 2 STABLE CHRONIC PROBLEMS, A NEWLY DIAGNOSED PROBLEM WITH UNCERTAIN PROGNOSIS, AN ACUTE COMPLICATED INJURY WITH MULTIPLE TREATMENT OPTIONS, OR AN ACUTE PROBLEM WITH ACCOMPANYING SYSTEMIC SYMPTOMS, THAT POSE(S) A MODERATE RISK OF MORBIDITY. THIS CONDITION MAY ALSO INCLUDE RX DRUG MANAGEMENT, OR A DECISON FOR MINOR SURGERY. The visit on the day of the encounter encompassed interpreting the data and educating the patient as to the nature of their condition, treatment options available according to their individual PMH, meds, allergies, and overall health/living conditions, as well as any potential risks or complications that may occur from a failure to adhere to, and participate in, the recommended course of therapy. The discussion included a complete verbal, and/or written explanation of the examination results, any x-rays taken, the proposed diagnosis, and outline of the treatment plan. A schedule for future care needs was also explained. The patient verbalized an understanding of the instructions at this time and agreed to be an active participant in their treatment. If the patient should think of any questions or concerns after the visit, I have encouraged the patient to call the office.?Heel pain:?FASCIITIS: I explained to the patient the possible etiologies of Plantar Fasciitis including foot type/shoegear/activity level/exercise routine and the risks/benefits of all the different treatment options for heel pain including: No treatment at all, Rest, Ice, NSAIDs(only if well tolerated after meals), New/supportive Shoegear, Strappings and Tapings, Stretching exercises, Deep Tissue Massage, Heel cups/cushions, Arch support/shoe inserts, Custom orthoses, Topical analgesics including Aspercream/Voltaren gel, Night splint AFO for am stiffness, Cortisone injection therapy, Cast boot with crutches/cane/or walker for assisted ambulation, Physical Therapy, EPAT/ESWT, Interfil injection therapy, as well as surgical Alton/Endoscopic Fasciitomy surgical procedures if needed. Recommendations were made to limit barefoot walking, eliminate wearing nonsupportive shoegear (i.e. flip-flops or sandals, or a shoe with an easily bendable, foldable, or twistable sole) and wear shoegear with a good solid sole, a supportive arch, and plenty of room for an insert/orthotic if necessary. If wearing sandals was required by the patient, we recommended orthopedic sandals such as Orthoheel or Birkenstock even while in the home. If the patient wore heels in the past, we recommended they continue, but eliminate the use of flats. The advantages and disadvantages of each option were discussed and the patients questions re: types of shoegear, custom vs prefabricated inserts, activity level, PO vs Topical medications (and their respective potential complications/drug interactions/side effects), and consistency in home treatment regimens for optimal success were answered to their satisfaction. Literature detailing plantar fasciitis and the various treatment options were dispensed and reviewed, Stretching exercises for the patients injury/diagnosis were discussed and demonstrated, Handouts were also given, Recommended a Night Splint to be worn daily for a minimum of 2 hours, The Pt. was counseled on the x-rays, treatment options, and the importance of following all homecare instructions.?Neuritis/Neuropathy:?The patient was counseled on the diagnosis, possible etiologies (including mechanical stress, injury, entrapment, chemotherapy, diabetes, vertebral disk herniation if hx), treatment options, and importance for adherence to recommendations in order to address the patients Neuritis/Neuropathy. The advantages and disadvantages re: Accomidative mechanical support/offloading, Topical vs PO analgesics including aspercream/Voltaren gel/Lidoderm patches/Neurontin/Lyrica along with their potential side effects were discussed with the patient to their satisfaction. Also discussed the use of therapeutic injectable cortisone if needed. Surgical treatment, if considered an option, was discussed as well. If surgery is warranted, we discussed the potential successful outcomes as well as the possible complications such as failure, painful scar, permanent tingling/numbness/neuralgea/or intractable pain. Patient questions re: medication use, dosage, and possible side effects and drug interactions were reviewed and the answers to each understood. If the condition worsens, the patient was instructed to contact the office for an appointment. The patient verbally confirmed a full understanding of the above, Recommended Topical analgesics including aspercream/Voltaren gel/Lidoderm patches.?Orthotics:?I explained to the patient the benefits of OT use. I explained that orthoses are medically necessary to decrease the foot pain through proper mechanical control, support of their foot, decrease stretch/strain on the plantar fascia, possibly prevent surgery, The patient was asked to seriously consider this important treatment option. Prior Approval will be sent to pts insurance for coverage.? ??Screening/Special Tests:?Fall Risk?Screening:?One fall with injury in the past year ?FALLS: Screening for Future Fall Risk?Have you had any falls with injury in the past year??Yes * Follow Up:?after approval fr om insurance (Reason: Orthotic Disp/fit/eval) * Images: * Sign off status: Completed true * Provider:Linda Lau DPM Date:?2024 Generated for Nenai ng/Faxing/eTransmitting on:?07/12/2024 11:24 AM EDT History and Physical Notes * HPI (History of Present Illness) Category Sub-Category Detail Notes Category Not es Heel pain Duration: , several years Nature: tenderness, sharp pa in, stiffness Location: Proximal plantar asp ect of Heel , B/L Aggravated: standing, walking, w alking first thing in the morning/after rest Course: worse Treatments: rest/alter normal da jorge alberto activity Foot Pain Nature: burning , radiating , shooti ng , tingling Location: Top , Midfoot ,, B/L Duration: , several months Onset: unknown Course: worse Aggravated: any pressure Treatments: rest/alter normal da jorge alberto activity Examination Category Sub-Category Detail Notes Category Not es Neuroma Pain PALPATION: No interspace pain noted on palpation Heel Pain INSPECTION REVEALS: Pain on Palp ation to Plantar Fascia med. and central bands, intrinsic musc., infra-calcaneal bursa, and med calc tubercle, B/L, No pain: posterior/superior heel, achilles bursa/tendon, sinus tarsi, peroneals, or with lateral heel compression; no limited STJ ROM, calor, or ecchymosis, B/L Neurological SENSORY: Neurological exa m demonstrates reduced sharp/dull pin prick discrimination reduced light touch sensation reduced vibration sensation reduced proprioception sensation in a stocking fashion 5.07 monofilament test performed at plantar aspects of 5 varied sites per foot shows sensation plantar aspects absent at Forefoot B/L, Pt relates, numbness, pins and needles sensation, shooting/radiating sensation, B/L midfooy TINEL'S COMPRESSION: Negative tarsal chau ernestina, bessy pedis, and medial calcaneal nerves , Positive , Medial dorsal cutaneous nerve distribution , Intermediate dorsal cutaneous nerve distribution , Right Orthopedic GAIT ABNORMALITY: antalgic,Supin ated,adducted angle and base of gate,B/L FOOT MORPHOLOGY: , Prominent, painful 1st Met-Cuneiform joint WITH inflammation b/l, Pes Cavus structure, B/L FOOTWEAR EVALUATION: shoe gear propertie s exacerbate patients foot/toe deformity , shoe gear properties exacerbate patients foot/toe deformity DIGITAL DEFORMITIES: Digital contracture , PIPJ, 2-5 B/L, incompl-reducible with WB, or to push-up test, no over, nor underlapping MUSCLE STRENGTH: 5/5 all groups in a symmetrical fashion, B/L General Examination GENERAL APPEARANCE: Reveals a pleasant, alert, well nourished, well-developed, well hydrated individual, who demonstrates proper attention to hygiene/body habitus, and is in no acute distress, Pt serves as own historian for office visit today ORIENTED: person, place, and t navya X-Rays - IMAGING REPORT Findings: normal b one and soft tissue density consistent for patients age and sex, Fracture: Negative fractures i dentified, old fx head of the proximal phalange b/l Digits: show asymmetrical adelina int space narrowing at the PIPJ consistent with clinical finding of hammertoe deformity, show synostosis at the DIPJ, 4th digit, 5th digit b/l Foot structure: reveals cavus foot s tructure with, posterior break in cyma line Views: 3 views of Foot, LAT , LO, MO , B/L Taken by trained Podiatric Process Development Engineer ( KL ) , Clinical Indication(s): Evaluate for Fra cture, Evaluate Biomechanical Deformity ,
--- OUTSIDE RECORDS SUMMARY | 2024-07-12 11:24 | XMS_ITS | Clinical Summary ---
Author Organization [facility] Address [address] [place] [address] Care Team Providers Care Milk Inspector Name Role Phone Unavailable Primary Care Provider [...]
[2024-07-12 11:28] VITALS: PULSE 82; O2SAT 98
== END 2024-07-12 10:54 | disposition home or self-care (01) ==
LOC: HO.RESP 10:53
PROVIDERS: PCP Internal Medicine; Visit Provider Nurse Practitioner Family
DX: J45.909 Unspecified asthma, uncomplicated (principal)
CPT/HCPCS: 94010; 94640; 94727; 94729

== ENCOUNTER → 2024-07-12 10:57 | Outpatient (BNV) | payer OTHER, SELFPAY | PROVIDERS: PCP Internal Medicine; Visit Provider Hospitalist | DX: R06.09 Other forms of dyspnea (principal) | CPT/HCPCS: 94060; 94727; 94729 ==

== ENCOUNTER 2024-07-16 13:53 | Outpatient (AMB) | payer OTHER, SELFPAY ==
[2024-07-16 13:55] VITALS: BP 100/62; PULSE 96; O2SAT 97; BMI 31.9
--- NOTE | 2024-07-16 13:55 | MHC.OFFVIS ---
Vital Signs 07/16/24 13:55 Height 6 ft Weight 235 lb BMI 31.9 BP 100/62 Blood Pressure Location Lt brachial Position Sitting Pulse 96 Pulse Source Pulse Oximeter Pulse Oximetry (%) 97 Oxygen Delivery Method Room Air Intake Visit Reasons: hx pulm embolism/ PFT FU Allergies oxycodone Allergy (Severe, Verified 07/16/24 13:59) Nausea Seasonal Allergies Allergy (Verified 07/16/24 13:59) sneezing HPI HPI hx pulm embolism/ PFT FU: Details: Naseem is a pleasant 28 year old male, never smoker, with underlying h/o provoked DVT/PE completed 3 months of eliquis. He was initially referred by PCP for pulmonary evaluation for ongoing dyspnea. He reports dyspnea has been more noticeable over the last few months, occurs both at rest and with exertion. Denies cough, wheezing or chest tightness. He has been prescribed albuterol MDI in the past for reactive airway disease secondary to URI. Today he presents to review RAST, in lab PSG and PFT. [facility] Medical History (Updated 07/18/24 @ 10:59 by Soy Up MD) Acne Excessive daytime sleepiness Bilateral foot pain History of pulmonary embolism History of deep venous thrombosis (DVT) of distal vein of left lower extremity 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 skilled nursing anticoagulation Bilateral pulmonary embolism Elevated serum creatinine At risk for sexually transmitted disease due to partner with multiple partners Chronic heartburn Cervicalgia Lumbago of lumbar region with sciatica Chronic pain of both feet Hyperlipidemia History of chlamydia Witnessed apneic spells Erectile dysfunction History of COVID-19 Lumbar degenerative disc disease PTSD (post-traumatic stress disorder) Lumbar disc disease with radiculopathy ADD (attention deficit disorder) Surgical History No pertinent past surgical history Social History Housing: Apartment Patient Tobacco Use Status: Never used Tobacco e-Cigarette/Vaping Use: Never Used service: Yes Current occupational status: employed Cognitive needs: No Hearing needs: No Vision needs: No Review of Systems Const Denies chills, Denies excessive sweating, Reports fatigue, Denies fever(s), Denies headache(s) and Denies night sweats Eyes Denies dry eyes and Denies irritation ENT Reports Normal hearing present and Denies headache(s) Card Denies claudication, Denies leg edema, Denies orthopnea and Denies paroxysmal nocturnal dyspnea Resp Denies chest congestion, Denies cough, Denies excessive phlegm production, Denies pain on inspiration, Denies pain with cough, Denies stridor and Denies wheezing Musc Denies myalgias and Reports arthralgias Neuro Reports Normal hearing present and Denies headache(s) Endo Denies excessive sweating and Reports fatigue Masood/Lymph Denies lymphadenopathy Aller/Immun Denies seasonal rhinorrhea and Denies wheezing Physical Exam Vital Signs: Last Vital Signs Pulse 96 07/16/24 13:55 BP 100/62 07/16/24 13:55 Pulse Ox 97 07/16/24 13:55 Oxygen Delivery Method Room Air 07/16/24 13:55 BMI result Body Mass Index 31.9 Const General: cooperative, healthy appearing, comfortable, no acute distress, well developed and alert Orientation/consciousness: patient oriented x3 Limitations: no limitations HEENT Head: Yes normal to inspection, Yes normocephalic and Yes atraumatic Ears: hearing grossly normal bilaterally and external ears normal Eyes General: appearance normal, both eyes and all related structures Eyelids: Yes eyelids normal Sclerae: sclerae normal EOM: EOMs intact bilaterally Neck Neck: Yes normal visual inspection and Yes no lymphadenopathy Lymphatic: no lymphadenopathy noted Chest Chest palpation & inspection: normal inspection of the chest Resp Effort & Inspection: normal respiratory effort, able to speak in complete sentences, no audible wheezes, no cough, no stridor, not tachypneic, no tripod positioning and no use of accessory muscles Auscultation: clear to auscultation bilaterally Cardio Jugular venous distension: no JVD Rate: regular rate Rhythm: regular rhythm Skin Other: warm, dry General skin exam: no rashes or lesions noted Neuro General: patient oriented x3 Cranial nerves: Yes Normal hearing present Cognition (Neuro): normal cognition Gait exam (Neuro): Normal gait present Extrem General: Yes normal to inspection, Yes capillary refill normal, Yes no clubbing, cyanosis or edema and Yes no pedal edema Psych Appearance: grossly normal and well kempt Speech and movement: Normal speech and movement present and Clear speech present Affect: normal affect Attitude: cooperative Thought process: Normal thought process present Thought content: Normal thought content present Insight: Good insight present (Psych) Judgement: Good judgement present (Psych) Assessment & Plan Assessment & Plan (1) Reactive airway disease: Code(s): J45.909 - Unspecified asthma, uncomplicated Category: Medical (2) History of pulmonary embolism: Comment: bilateral 12/2023 Code(s): Z86.711 - Personal history of pulmonary embolism Category: Medical (3) Environmental allergies: Code(s): Z91.09 - Other allergy status, other than to drugs and biological substances Category: Medical Plan Reviewed PFT which revealed no obstructive nor restrictive ventilatory defects identified. No significant response to bronchodilators noted. The patient does have some evidence of small airways disease which could be seen with asthma. Lung volumes and diffusing capacity are both within normal limits. We discussed potential for asthma and proceeding with methacholine challenge to better assess hyperreactive airways, however would like to defer at this time. Will empirically trial Symbicort. Discussed good oral hygiene to prevent thrush. Reviewed RAST which was positive to multiple environmental allergens. Discussed ways to minimize allergen exposure. He previously reported intermittent chest pain that has been ongoing x 4 years and recently had two syncopal events. ED workup negative for repeat PE and EKG/bedside echo unremarkable, brother with recent ablation for possible SVT. Awaiting appt with cardiology for further evaluation. We did review signs and symptoms of requiring emergent evaluation. He reports symptoms suggestive of RAMBO, however both home sleep study and in lab PSG negative. Of note, patient newly reporting pleuritic discomfort with associated joint pain and fatigue, will send for autoimmune workup. All questions were answered and patient is in agreement of plan. Will follow up in 6-8 weeks or sooner if needed. Orders: Orders Cyclic Citrullinated Peptide 07/16/24 M25.50 - Pain in unspecified joint Rheumatoid Factor 07/16/24 M25.50 - Pain in unspecified joint BEBETO Reflex Titer and Pattern 07/16/24 M25.50 - Pain in unspecified joint Scleroderma 70 Antibody 07/16/24 M25.50 - Pain in unspecified joint Sjogren's Antibodies 07/16/24 M25.50 - Pain in unspecified joint Erythrocyte Sedimentation Rate 07/16/24 M25.50 - Pain in unspecified joint Medications: New budesonide-formoterol 80-4.5 mcg/actuation (Symbicort) 1 puff inhalation Q12H 1 ea 0RF Coding Level of Care Code Est Pt Level 4 (47178) Complex EM visit Add On G2211 Diagnoses Reactive airway disease J45.909 History of pulmonary embolism Z86.711 Environmental allergies Z91.09
--- OUTSIDE RECORDS SUMMARY | 2024-07-16 15:07 | XMS_ITS ---
Author Organization [facility] Address [address] [place] [address] Care Team Providers Care Lobster Man Name Role Phone Ginger ROQUE, Sharon Sewell Primary Care Provider Un available Black, Talisha Unavailable [phone] REASON FOR VISIT Need PA Encounters Encounter Location Date Provider Diagnosis [facility] [address] [place] [address] 07/09/2024 Talisha Black Plan Of Treatment No Information Progress Notes * Naseem MEHTA RDOB:[birth year] (28 yo M)Acc No.[id number]:07/09/2024 Patient:?Naseem MEHTA :1995???Age:28 Y???Sex:Male Address:[address] [place] [address] * * Date:?
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
--- OUTSIDE RECORDS SUMMARY | 2024-07-16 15:07 | XMS_ITS | Patient Health Record ---
Author Organization [facility] Address [address] [place] [address] Care Team Providers Care Pipe Smoking Machine Offbearer Name Role Phone Ginger ROQUE, Sharon Sewell Primary Care Provider Un available Talisha Lau Unavailable [phone] Waldemar Neri Unavailable [phone] David aGrcia Unavailable [phone] Allergies No Known Allergies Results Component Value [...] Provider Speciality Internal M edicine [facility] Referred Provider Talisha Lau Referred Address [address] [facility],[place],[address], Referred Provider Specialty Podiatry Referral Priority Routine [...] Risk Notes Problem Mononeuropathy of lower limb (586050501) Neuritis of right foot (G57.91) Active confirmed Problem [id number] Neuritis of left foot (G57.92) Active confirmed Problem 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) Plantar fasciitis, bilateral (M72.2) Active confirmed Vital Signs Blood pressure diastolic 70 mm Hg 07/09/2024 Height 6 ft in 07/09/2024 Blood pressure systolic 130 mm Hg 07/09/2024 Weight 228 lbs 07/09/2024 BMI 30.92 kg/m2 07/09/2024 Encounters Encounter Location Date Provider Diagnosis [address] [address] 07/09/2024 Talisha Black Pain in right foot M79.671 ; Plantar fasciitis, bilateral M72.2 ; Other myositis of right foot M60.871 ; Bursitis of right foot M77.51 ; Pain in left foot M79.672 ; Other myositis of left foot M60.872 ; Bursitis of left foot M77.52 ; Pain in right foot M79.671 ; Neuritis of right foot G57.91 and Neuritis of left foot G57.[address] [facility] [address] 07/09/2024 Talisha [facility] [address] 02/05/2024 Talisha Black [facility] [address] 02/15/2024 Talisha Black [address] [address] 04/11/2024 David Garcia [address] [address] 07/02/2024 Talisha Lau Assessments Encounter Date Diagnosis [...] Insured Coverage Start Date Coverage End Date [facility] [address] [place] [id number] Naseem Aguilar Self - patient is the insured Medical (General) History Medical History History ICD Code Anxiety Back,Hip,and Knee pain covid-19 Depression Headaches/Migraines Reflux ( GERD) Sciatica Vascular phlebitis (clots) [facility]
--- OUTSIDE RECORDS SUMMARY | 2024-07-16 15:07 | XMS_ITS | Continuity of Care Document ---
Author Name [facility] Organization [facility] Care Team Providers Care Welding Specialist Name Role Phone [facility] Unavailable Unavailable Problems Combined list of [...] ORAL, MALLINKRT PHARM, 100 ea. BOTTLE Active [id number] 2023 60 Pharmac y Data Transac tion Service Facilit y CLOMID (clomiphene citrate), 50 MG, TABLET, ORAL, FANTA PHARMAC, 30 ea. BLIST PACK Cancele d [id number] : 2023 0 Pharmac y Data Transac tion Service Facilit y CLOMID (clomiphene citrate), 50 MG, TABLET, ORAL, FANTA PHARMAC, 30 ea. BLIST PACK Active [id number] 4 2023 14 Pharmac y Data Transac tion Service Facilit y CLOMID (clomiphene citrate), 50 MG, TABLET, ORAL, FANTA PHARMAC, 30 ea. BLIST PACK Active [id number] 2023 14 Pharmac y Data Transac tion Service Facilit y CLOMID (clomiphene citrate), 50 MG, TABLET, ORAL, FANTA PHARMAC, 30 ea. BLIST PACK Active [id number] 4 2023 14 Pharmac y Data Transac tion Service Facilit y CLOMID (clomiphene citrate), 50 MG, TABLET, ORAL, FANTA PHARMAC, 30 ea. BLIST PACK Active [id number] 4 2023 14 Pharmac y Data Transac tion Service Facilit y DEX/AMPHET (ADDERALL XR EQ) 15 MG CP24 Take or use exactly as directed .May impair driving. This prescrip tion cannot be refilled .Federal law prohibit s transfer of prescrip tion. 02/18/2024 [id number] 4 [address] [place] [address] DEX/AMPHET (ADDERALL XR EQ) 15 MG CP24 Take or use exactly as directed .May impair driving. This prescrip tion cannot be refilled .Federal law prohibit s transfer of prescrip tion. 12/13/2023 [id number] [address] [place] [address] Dextroamphe tamine Saccharate, Amphetamine Aspartate, Dextroamphe tamine Sulfate and Amphetamine Sulfate ([email or web address] 100 TABLET in 1 BOTTLE Active [id number] 06/14/19 2 4 2023 60 Pharmac y Data Transac tion Service Facilit y DULOXETINE HCL (duloxetine HCl), 20 MG, CAPSULE DR, ORAL, AJANTA PHARMA L, 60 ea. BOTTLE Active [id number] 4 2023 30 Pharmac y Data Transac tion Service Facilit y DULOXETINE HCL (duloxetine HCl), 20 MG, CAPSULE DR, ORAL, AJANTA PHARMA L, 60 ea. BOTTLE Active [id number] 4 2023 30 Pharmac y Data Transac tion Service Facilit y DULOXETINE HCL (duloxetine HCl), 20 MG, CAPSULE DR, ORAL, AJANTA PHARMA L, 60 ea. BOTTLE Active [id number] 4 2023 30 Pharmac y Data Transac tion Service Facilit y Meloxicam (Meloxicam) , 15mg, Tablet, Oral, [facility], 1000 Ea. Bottle Cancele d [id number] : 2023 0 Pharmac y Data Transac tion Service Facilit y METHOCARBAM OL (methocarba mol), 750 MG, TABLET, ORAL, GRANULES PHARMA, 100 ea. BOTTLE Active [id number] 2023 42 Pharmac y Data Transac tion Service Facilit y MIRTAZAPINE (MIRTAZAPIN E), 30MG, TABLET, ORAL, CARACO PHARM, 30 ea. BOTTLE Cancele d [id number] : 2023 0 Pharmac y Data Transac tion Service Facilit y ONDANSETRON ODT (ONDANSETRO N), 8 MG, TAB RAPDIS, ORAL, AUROBINDO PHARM, 30 ea. BLIST PACK Active [id number] 2023 30 Pharmac y Data Transac tion Service Facilit y TRAZODONE HCL (trazodone HCl), 50 MG, TABLET, ORAL, TEVA [place], 100 ea. BOTTLE Cancele d [id number] : 2023 0 Pharmac y Data Transac tion Service Facilit y TRAZODONE HCL (trazodone HCl), 50 MG, TABLET, ORAL, TEVA [place], 100 ea. BOTTLE Active [id number] 2023 30 Pharmac y Data Transac tion Service Facilit y TRAZODONE HCL (trazodone HCl), 50 MG, TABLET, ORAL, TEVA [place], 100 ea. BOTTLE Active [id number] 4 2023 60 Pharmac y Data Transac tion Service Facilit y TRAZODONE HCL (trazodone HCl), 50 MG, TABLET, ORAL, TEVA [place], 100 ea. BOTTLE Active [id number] 4 2023 30 Pharmac y Data Transac [...] Site Reaction Lot Number CVX Code Drug Rail Loader Status Comments Source Influenza, injectable, quadrivalent, preservative free 0 2021 [id number] GetIntent ([facility]) complet ed Influenza , injectabl e, quadrival ent, preservat maritza free DoD typhoid Vi capsular polysaccharid e vaccine 2 2021 [id number] Sanofi Pasteur ([facility]) complet ed typhoid Vi capsular polysacch aride vaccine DoD meningococcal polysaccharid e (groups A, C, Y and W-135) diphtheria toxoid conjugate vaccine (MCV4P) 2 2021 [id number] Sanofi Pasteur ([facility]) complet ed meningoco ccal polysacch aride (groups A, C, Y and W-135) diphtheri a toxoid conjugate vaccine (MCV4P) DoD Human Papillomaviru s 9-valent vaccine 2 2021 [id number] 165 [employer] (MSD) complet ed Human Papilloma virus 9-valent vaccine DoD SARS-COV-2 (COVID-19) vaccine, mRNA, spike protein, LNP, preservative free, 100 mcg or 50 mcg dose 3 2021 [id number] 207 [employer]. (MOD) complet ed SARS-COV- 2 (COVID-19 ) vaccine, mRNA, spike protein, LNP, preservat maritza free, 100 mcg or 50 mcg dose DoD Influenza, injectable, quadrivalent, preservative free 7 2020 [id number] 150 [employer] (SK) complet ed Influenza , injectabl e, quadrival ent, preservat maritza free DoD SARS-COV-2 (COVID-19) vaccine, mRNA, spike protein, LNP, preservative free, 100 mcg or 50 mcg dose 2 2020 [id number] 207 [employer]. (MOD) complet ed SARS-COV- 2 (COVID-19 ) vaccine, mRNA, spike protein, LNP, preservat maritza free, 100 mcg or 50 mcg dose DoD SARS-COV-2 (COVID-19) vaccine, mRNA, spike protein, LNP, preservative free, 100 mcg or 50 mcg dose 1 2020 [id number] 207 [employer], [employer]. (MOD) complet ed SARS-COV- 2 (COVID-19 ) vaccine, mRNA, spike protein, LNP, preservat maritza free, 100 mcg or 50 mcg dose DoD Influenza, injectable, quadrivalent, preservative free 0 2019 [id number] 150 Seqirus (SEQ) complet ed Influenza , injectabl e, quadrival ent, preservat maritza free DoD typhoid Vi capsular polysaccharid e vaccine 1 2018 [id number] 101 Sanofi Pasteur ([facility]) complet ed typhoid Vi capsular polysacch aride vaccine DoD Human Papillomaviru s 9-valent vaccine 1 2018 [id number] 165 Merck (MSD) complet ed Human Papilloma virus 9-valent vaccine DoD Influenza, injectable, quadrivalent, preservative free 0 2018 [id number] 150 [employer] (SEQ) complet ed Influenza , injectabl e, quadrival ent, preservat maritza free DoD Influenza, injectable, quadrivalent, preservative free 0 2017 [id number] 150 [employer]irus (SEQ) comple t ed Influenza , injectabl e, quadrival ent, preservat maritza free DoD Mozambican Encephalitis vaccine for intramuscular administratio n 3 2017 [id number] 134 Valneva ([place]) complet ed Mozambican Encephali tis vaccine for intramusc ular administr ation DoD influenza, injectable, quadrivalent, contains preservative 3 2016 [id number] 158 [facility] (B) complet ed influenza , injectabl e, quadrival ent, contains preservat maritza DoD Mozambican Encephalitis vaccine for intramuscular administratio n 2 2016 [id number] 134 Valneva (ERICA) complet ed [place]ambican Encephali tis vaccine for intramusc ular administr ation DoD hepatitis A and hepatitis B vaccine 3 2015 [id number] 104 [facility] (SKB) complet ed hepatitis A and hepatitis B vaccine DoD Mozambican Encephalitis vaccine for intramuscular administratio n 1 2015 [id number] 134 [employer] (INT) complet ed [place]ican Encephali tis vaccine for intramusc ular administr ation DoD Influenza, seasonal, injectable, preservative free 0 2015 [id number] 140 [employer] (SEQ) comple t ed Influenza , seasonal, injectabl e, preservat maritza free DoD measles, mumps and rubella virus vaccine 2 2015 [id number] 03 Merck (MSD) complet ed measles, mumps and rubella virus vaccine DoD hepatitis A and hepatitis B vaccine 1 2015 [id number] 104 SmithKline (SKB) complet ed hepatitis A and hepatitis B vaccine DoD measles, mumps and rubella virus vaccine 1 2015 [id number] 03 Merck (MSD) complet ed measles, mumps [...] diphtheria toxoid conjugate vaccine (MCV4P) 1 2015 [id number] 114 Sanofi Pasteur (PMC) complet ed meningoco [...] and type 7, live, oral 1 2015 [id number] 143 [employer] (BRR) complet ed Adenoviru s, type 4 and type 7, live, oral [facility] influenza, injectable, quadrivalent, contains preservative 1 2015 [...] Disposition Source [place] [address](Mitch matology Surgery, [facility]) OUTPATIENT [id number] NERY Smalls 06/29 Released w/o Limitations [facility] [place] [address](D ermatol ogy Surgery , [facility]) [facility] [place] [address]([facility]) OUTPATIENT [id number] Notes Entered by: LAURA WALKER 01 Jul 2015 1019 ------- ------- ------- ------- -- Strep Prophyl axis JACQUELINE WALKER 06/30 Released w/o Limitations [facility] [place] [address]([facility] d) [place] [address](Hea ring Conservat ion, BMT) OUTPATIENT [id number] FLIP KWAN 07/02 Released w/o Limitations [facility] [place] [address](H earing Conserv ation, BMT) [place] [address](ATR 323 TRS,BMT) OUTPATIENT [id number] Notes Entered by: MARKY HASSAN 09 Jul 2015 1339 ------- ------- ------- ------- -- luke al lower leg pain MIGUEL PETERSON 07/08 Released with Work/Duty Limitations [facility] [place] [address](A TR 323 TRS,BMT ) [place] [address](ATR 323 TRS,BMT) OUTPATIENT [id number] Notes Entered by: MARKY HASSAN 10 Jul 2015 1020 ------- ------- ------- ------- -- TALHA SIMON PT 07/09 Released with Work/Duty Limitations [facility] [place] [address](A TR 323 TRS,BMT ) VIV[place] [place] [address](MAS Alpha) OUTPATIENT [id number] Notes Entered by: Casey WELCH 11 Aug 2015 1212 ------- ------- ------- ------- -- cold pack SUNDEEP WELCH 08/10 Released w/o Limitations [facility] [place] [address](M Alpha) [place]) OUTPATIENT [id number] PFB ASHU DEE 08/31 Released with Work/Duty Limitations [place] [place] [facility]) [place]) OUTPATIENT [id number] PFB ASHU DEE 09/30 Released w/o Limitations [place]) [place]) OUTPATIENT [id number] POSSIBL E TENNILLE SALVADOR 10/05 Released w/o Limitations [place]al [facility]) OUTPATIENT [id number] [facility] 10/26 Released w/o Limitations [place] Occupat ional Health) [place] Hearing Conservat ion) OUTPATIENT [id number] audio +sts right WINTER WIN C 10/26 Released w/o Limitations [place] Hearing Conserv ation) [place] Hearing Conservat ion) OUTPATIENT [id number] audio WINTER WIN C 10/27 Released w/o Limitations [place] Hearing Conserv ation) [place] Readiness [facility]) OUTPATIENT [id number] OSS/JAP AN MART CAO 11/10 Released w/o Limitations [place] [place] OUTPATIENT [id number] f/u Bilater al Foot Pain TENNILLE CASSIDY 11/11 Released with Work/Duty Limitations [place]) [place]) OUTPATIENT [id number] PFB LUIZ ASHU BAILEY 11/30 Released w/o Limitations [place]) [facility](K a Medical In-Out Processin g) TELE CONSULT [id number] Notes Entered by: ASHU ACUÑA 03 Feb 2016 1205 ------- ------- ------- ------- -- Medical Inproce ssing ASHU ACUÑA 02/02 Other Not Elsewhere Classified [facility] ( Medical In-Out Process ing) [facility]) OUTPATIENT [id number] initial shaivin dwayne ho and plantar fasciti s GEGE FERNANDEZ 02/07 Released w/o Limitations [facility] ([facility]) [facility](P odiatry Clinic) OUTPATIENT [id number] Plantar fascial fibroma PAT Guevara 03/23 Released w/o Limitations [facility] (Podiat ry Clinic) [facility]) OUTPATIENT [id number] neck and back px7/10 alexander t x3mo SID JOHNSON 03/24 Released w/o Limitations [facility] ([facility]) [facility]) TELE CONSULT [id number] Notes Entered by: DAYLIN CERVANTES 25 Mar 2016 1037 ------- ------- ------- ------- -- RAD results SANTINO MULLER 03/25 [facility] ([facility]) [facility]( a [facility]) OUTPATIENT [id number] stress managem ent/ref erral from [facility] JASON GUERRA 03/28 Released w/o Limitations [facility] ([facility]) [facility]) OUTPATIENT [id number] RAD results f/u SID JOHNSON 03/30 Released w/o Limitations [facility] ([facility]) [facility]) TELE CONSULT [id number] Notes Entered by: GAGE MURCIA 05 Apr 2016 1323 ------- ------- ------- ------- -- PHAQ PRIORIT Y SANTINO DEVRIES 04/05 [facility] ([facility]) [facility]) OUTPATIENT [id number] routine /IMR TOBIN FRAGA 04/07 Released w/o Limitations [facility] ( Optomet ry Clinic) [facility]) OUTPATIENT [id number] f/u JASON GUERRA 04/11 Released w/o Limitations [facility] ([facility]) [facility] OUTPATIENT [id number] Notes Entered by: WOLFGANG FERNANDEZ 15 Apr 2016 1412 ------- ------- ------- ------- -- AUDIOGR AM RAGHAV ORTIZ 04/15 Released w/o Limitations [facility] ( Hearing Conserv ation) [facility]) OUTPATIENT [id number] radha Velazquez TYLER B 04/18 Released with Work/Duty Limitations [facility] ( Physica l Therapy Clinic) [facility]) TELE CONSULT [id number] Notes Entered by: BANDAR VEGA 18 Apr 2016 1401 ------- ------- ------- ------- -- [facility] RANDALL CRESPO 04/18 [facility] ([facility]) [facility]) OUTPATIENT [id number] madelinito RANDALL Dowell 04/19 Released w/o Limitations [facility] ([facility]) [facility]) OUTPATIENT [id number] Notes Entered by: DENISSE HERNANDEZ 05 May 2016 1300 ------- ------- ------- ------- -- MARKUS Gonzalez 05/05 Released w/o Limitations [facility] ([facility]) [facility]) OUTPATIENT [id number] THI NESS 05/11 Released w/o Limitations [facility] ( Physica l Therapy Clinic) [facility]) OUTPATIENT [id number] GARRY MILLER 05/12 Released w/o Limitations [facility] ([facility]) [facility]) OUTPATIENT [id number] THI NESS 05/16 Released w/o Limitations [facility] ( Physica l Therapy Clinic) [facility]) TELE CONSULT [id number] Notes Entered by: Cheryl GAO 20 May 2016 0732 ------- ------- ------- ------- -- vomit, cold sweats, has had little waterxl ess then 12 hours SANTINO MULLER 05/19 [facility]) OUTPATIENT [id number] throwin g up SANTINO MULLER 05/20 Released w/o Limitations [facility] ([facility]) [facility]) OUTPATIENT [id number] THI NESS 05/22 Released w/o Limitations [facility] ( Physica l Therapy [facility]) [facility]) OUTPATIENT [id number] Tidd resched ule/rebeca ulder px 08/13/ hand px 08/13 x almost 1 yr SANTINO MULLER 05/25 Released w/o Limitations [facility] ([facility]) [facility]) OUTPATIENT [id number] THI NESS 05/29 Released w/o Limitations [facility] ( Physic l Therapy [facility]) [facility]) OUTPATIENT [id number] Notes Entered by: GUALBERTO HUBER 30 May 2016 0833 ------- ------- ------- ------- -- [facility] CARINA ALEX 05/29 Released w/o Limitations [facility] ([facility]) [facility]) OUTPATIENT [id number] BILLY DON 06/01 Released w/o Limitations [facility] ( [facility]) TELE CONSULT [id number] Notes Entered by: Alfonso SHANE 28 Jul 2016 1043 ------- ------- ------- ------- -- STD Ivis lopez ([facility]) KAYLIE EVANS 07/28 Referred for Appointment [facility] ([facility]) [facility]) OUTPATIENT [id number] Notes Entered by: DNEISSE HERNANDEZ 28 Jul 2016 1334 ------- ------- ------- ------- -- LIZ Watson 07/28 Released w/o Limitations [facility] ([facility]) [facility]) TELE CONSULT [id number] SANTINO MULLER 08/05 [facility] ([facility]) [facility]) OUTPATIENT [id number] f/u SID Carson 08/08 Released with Work/Duty Limitations [facility] ([facility]) [facility]) OUTPATIENT [id number] ER f/u for Edema BASSEM JOHNSONBRONWYN Whiteside 09/12 Released w/o Limitations [facility] ([facility]) [facility]) TELE CONSULT [id number] Notes Entered by: Joe WILSON 03 Oct 2016 0909 ------- ------- ------- ------- -- rash on chest,r ed, barbi(l ook like acne) x2days SANTINO MULLER 10/03 [facility] ([facility]) [facility]) TELE CONSULT [id number] Notes Entered by: NICOLAS HOOK 11 Oct 2016 0817 ------- ------- ------- ------- -- Early STI F/U JUD CURRY 10/10 [facility] ([facility]) [facility]) TELE CONSULT [id number] Notes Entered by: ELIZABETH SID Whiteside 26 Oct 2016 0847 ------- ------- ------- ------- -- F/u apt for MRI review REBEL GONZALEZ 10/25 Referred for Appointment [facility] ([facility]) [facility]) OUTPATIENT [id number] MRI review ELIZABETHBASSEM COELLOBRONWYN Whiteside 11/04 Released with Work/Duty Limitations [facility] ([facility]) [facility]) OUTPATIENT [id number] Notes Entered by: Emma BURNETT TTE 10 Nov 2016 1328 ------- ------- ------- ------- -- Doreen LEHMANEDES, KAMLESH A 11/10 Released w/o Limitations [facility] ([facility]) [facility] A Team) OUTPATIENT [id number] rash on back, red, raised, no improve ment over past 2wks DEAN GALLAGHER Ramona 12/19 Released w/o Limitations [facility] ([facility]) [facility]) OUTPATIENT [id number] Ref to chiropr BRADLY Prater 01/31 Released w/o Limitations [facility] ([facility]) [facility]) TELE CONSULT [id number] Notes Entered by: Joe WILSON 09 Mar 2017 1506 ------- ------- ------- ------- -- Profile ADEWUSI, MARIALUISA MEADEOLADE 03/09 Other Not Elsewhere Classified [facility] ([facility]) [facility]) TELE CONSULT [id number] Notes Entered by: Joe WILSON 23 Mar 2017 1315 ------- ------- ------- ------- -- SYMP- sore throat, headach es,body px,chil ls,DARINEL Lynn 03/23 Advice Assessment [facility] ([facility]) [facility](K a Hearing Conservat ion) OUTPATIENT [id number] Notes Entered by: TAMIKO WILSON 27 Mar 2017 1111 ------- ------- ------- ------- -- AUDIOGR AM TAMIKO WILSON 03/27 Released w/o Limitations [facility] ( Hearing Conserv ation) [facility](K a Hearing Conservat ion) TELE CONSULT [id number] Notes Entered by: TAMIKO WILSON 27 Mar 2017 1112 ------- ------- ------- ------- -- OHA LABS TAMIKO WILSON 03/27 Referred for Appointment [facility] ( Hearing [facility]) [facility]) TELE CONSULT [id number] Notes Entered by: JR ORTIZ 27 Mar 2017 1119 ------- ------- ------- ------- -- STI - Confide nce Check JUD CURRY 03/27 Other Not Elsewhere Classified [facility] ([facility]) [facility]) OUTPATIENT [id number] Notes Entered by: Emma BURNETT 27 Mar 2017 1208 ------- ------- ------- ------- -- Sent by Public [facility] BRADLY FRENCH 03/27 Released w/o Limitations [facility] ([facility]) [facility]) OUTPATIENT [id number] Sciatic a, right side BILLY DON 03/28 Released with Work/Duty Limitations [facility] ( Physica l Therapy Clinic) [facility]) OUTPATIENT [id number] Notes Entered by: Regina ORTEGA 11 Apr 2017 1558 ------- ------- ------- ------- -- Audiogr am BHAVNA ORTEGA 04/11 Released w/o Limitations [facility] ( [facility]) [facility]( [facility]) OUTPATIENT [id number] f/u hearing non flyer RICKY GEE 04/14 Released w/o Limitations [facility] ( [facility]) [facility]( a Physical Therapy Clinic) OUTPATIENT [id number] JOCELINE CERVANTES 05/14 Released w/o Limitations [facility] ( Physica l Therapy Clinic) [facility] Chiroprac tic Clinic) OUTPATIENT [id number] Lumbago with sciatic a, right side RIAN SIMMS L 05/16 Released w/o Limitations [facility] ([facility] Chiropr actic Clinic) [facility]( udiology Clinic) OUTPATIENT [id number] Unspeci fied hearing loss, left ear JOCELINE AKERS 05/17 Released w/o Limitations [facility] (Audiol ogy Clinic) [facility]) OUTPATIENT [id number] JOCELINE CERVANTES 05/21 Released w/o Limitations [facility] ( Physica l Therapy Clinic) [facility]) OUTPATIENT [id number] Notes Entered by: Joe WILSON 22 May 2017 1138 ------- ------- ------- ------- -- *cough, loss appetit e,sweat s,chill s*[phone] or [phone]* BRADLY FRENCH 05/22 Released w/o Limitations [facility] ([facility]) [facility]) OUTPATIENT [id number] JOCELINE CERVANTES 05/28 Released w/o Limitations [facility] ( Physica l Therapy Clinic) [facility]) OUTPATIENT [id number] OHA SAHIL BROTHERS 05/31 Released w/o Limitations [facility] ([facility]) [facility] Chiroprac tic Clinic) OUTPATIENT [id number] RIAN SIMMS 06/01 Released w/o Limitations [facility] ([facility] Chiropr actic Clinic) [facility]) OUTPATIENT [id number] OHA f/u RANDALL CRESPO 06/05 Released w/o Limitations [facility] ([facility]) [facility] Chiroprac tic Clinic) OUTPATIENT [id number] RIAN SIMMS 06/13 Released w/o Limitations [facility] ([facility] Chiropr actic Clinic) [facility]) OUTPATIENT [id number] Notes Entered by: LUI SCHWARZ 16 Jun 2017 1433 ------- ------- ------- ------- -- Annual A-P JIN SCHWARZ 06/16 Released w/o Limitations [facility] ([facility]) [facility]) OUTPATIENT [id number] Notes Entered by: GUALBERTO HUBER 19 Jun 2017 0845 ------- ------- ------- ------- -- TRI SERVICE PHA / *LTB BRADLY FRENCH 06/18 Released w/o Limitations [facility] ([facility]) [facility] Chiroprac tic Clinic) OUTPATIENT [id number] RIAN SIMMS 07/12 Released w/o Limitations [facility] ([facility] Chiropr actic Clinic) [facility]) OUTPATIENT [id number] back pain and foot pain BRADLY FRENCH 08/02 Released w/o Limitations [facility] ([facility]) [facility] OUTPATIENT [id number] RIAN SIMMS 08/15 Released w/o Limitations [facility] ([facility] Chiropr actic Clinic) [facility] OUTPATIENT [id number] RIAN SIMMS 08/31 Released w/o Limitations [facility] ([facility] act[facility]) [facility] A Team) OUTPATIENT [id number] Notes Entered by: Emma BURNETT 10 Jan 2018 0725 ------- ------- ------- ------- -- JUNIOR [place] 01/09 Released with Work/Duty Limitations [facility] ([facility]) [facility] D Team) TELE CONSULT [id number] Notes Entered by: RA URBAN PERKINS 10 Jan 2018 0816 ------- ------- ------- ------- -- Confide GERARDO Andrews 01/09 Other Not Elsewhere Classified [place] ([facility] D [facility]) [place]([facility]) OUTPATIENT [id number] injured my back (again) was told to make an appoint ment by kush shearer KEREN WALDEN 02/02 Released with Work/Duty Limitations [place] ([facility]) [facility] [place]LE [facility]ULT [id number] Notes Entered by: BRIE MIN 23 Feb 2018 1355 ------- ------- ------- ------- -- PRO:Ext landy/ [phone]/ JOCELINE VELASQUEZ 02/23 Other Not Elsewhere Classified [place] ([facility]) [place](P [facility]) OUTPATIENT [id number] Low back pain ERICK BRENNAN 03/08 Released w/o Limitations [place] ([facility]) [place]([facility]) OUTPATIENT [id number] 1 of 4 CATALINA MCDERMOTT 03/16 Released with Work/Duty Limitations [place] ([facility]) [place]([facility] Chiroprac tic Clinic) OUTPATIENT [id number] RIAN SIMMS 03/19 Released w/o Limitations [place] ([facility] Chiropr actic Clinic) [place]([facility]) TELE CONSULT [id number] Notes Entered by: ARELY SAUNDERS 28 Mar 2018 1224 ------- ------- ------- ------- -- pro;ana laura evans,/48 [phone] 5JOCELINE Tsang 03/28 Other Not Elsewhere Classified [place] ([facility]) [place]([facility]) OUTPATIENT [id number] 2/ AMELIA IMELDANEREIDA CASTRO 03/30 Released with Work/Duty Limitations [facility] ([facility]) [facility]) OUTPATIENT [id number] skin issue, acne, initial appt GILLIAN BRADLY Esqueda 04/02 Released w/o Limitations [facility] ([facility]) [facility]) TELE CONSULT [id number] Notes Entered by: JARRETT CALIX 06 Apr 2018 1526 ------- ------- ------- ------- -- OH Labs DREAD CALIX 04/06 Referred for Appointment [facility] ([facility]) [facility]) OUTPATIENT [id number] 4/ ASUNCION POST 04/11 Released w/o Limitations [facility] ([facility]) [facility]( a Hearing Conserv[facility] ion) OUTPATIENT [id number] Notes Entered by: JARRETT CALIX 13 Apr 2018 0822 ------- ------- ------- ------- -- Audiogr am DREAD CALIX 04/12 Released w/o Limitations [facility] ( [facility]) [facility]) OUTPATIENT [id number] 4/ CATALINA MCDERMOTT 04/20 Released with Work/Duty Limitations [facility] ([facility]) [facility]) OUTPATIENT [id number] LBP F/u ERICK BRENNAN 05/01 Released w/o Limitations [facility] ([facility]) [facility]) OUTPATIENT [id number] 1/ MATTHEW LLAMAS 05/09 Released w/o Limitations [facility] ( Physica l Therapy Clinic) [facility]) OUTPATIENT [id number] SAHIL BLANCO 05/10 Released w/o Limitations [place] ([facility]) [place]([facility] Chiroprac tic Clinic) OUTPATIENT [id number] RIAN SIMMS 06/01 Released w/o Limitations [place] ([facility] Chiropr actic Clinic) [place]([facility]) OUTPATIENT [id number] Notes Entered by: PETR THAPA 12 Jun 2018 1426 ------- ------- ------- ------- -- TRI SERVICE PHA/ASHU PRICE 06/12 Released w/o Limitations [place] ([facility]) [place]( [facility]) OUTPATIENT [id number] ERICK BRENNAN 06/27 Released w/o Limitations [facility] ) [place]([facility]) OUTPATIENT [id number] MATTHEW Raya 06/27 Released w/o Limitations [place] [facility] [place]([facility]) OUTPATIENT [id number] MATTHEW Raya 07/08 Released w/o Limitations [place] [facility] [place]([facility]) OUTPATIENT [id number] f/u LBP ERICK BRENNAN 07/11 Released w/o Limitations [place] [facility]) [place]([facility] D Team) OUTPATIENT [id number] Bilat foot pain x2 weeks JOSE CARTY 08/21 Released w/o Limitations [place] ([facility]) [place](P odiatry Clinic) OUTPATIENT [id number] Plantar fascial fibroma GURJIT Jasso 09/19 Released w/o Limitations [place] (Podiat ry Clinic) [place]([facility]) OUTPATIENT [id number] concent ration issues CLAYTON WESTBROOK 10/08 Released w/o Limitations [facility] ([facility]) [facility](P odiatry Clinic) OUTPATIENT [id number] F/U L toenail removal GURJIT HARVEY 10/08 Released w/o Limitations [facility] (Podiat ry Clinic) [facility] A Team) OUTPATIENT [id number] Medicat ion inquire s per VIRGIL Romano 10/22 Released w/o Limitations [facility] ([facility]) [facility]) TELE CONSULT [id number] Notes Entered by: NAHEED ADAME 08 Nov 2018 1313 ------- ------- ------- ------- -- MED CONSULT ATION /O CANDELARIO SANTIAGO 11/08 Released to Self Care [facility] ([facility]) [facility] A Team) OUTPATIENT [id number] MEDICAT ION EVAN GARRISON 11/13 Released w/o Limitations [facility] ([facility]) [facility]) OUTPATIENT [id number] injured lower back LINDSAY CRESPO W 01/15 Released w/o Limitations [facility] ([facility]) [facility] D Team) OUTPATIENT [id number] Notes Entered by: CAROLINA OSWALD 23 Jan 2019 0702 ------- ------- ------- ------- -- YEYO HUITRON 01/22 Released with Work/Duty Limitations [facility] ([facility]) [facility]) OUTPATIENT [id number] Notes Entered by: ANDREAS RASCON 23 Jan 2019 0812 ------- ------- ------- ------- -- Travel Med Indones BERENICE Rizo 01/22 Released w/o Limitations [facility] ([facility]) [facility]) OUTPATIENT [id number] Notes Entered by: ANDREAS RASCON 30 Jan 2019 1317 ------- ------- ------- ------- -- Travel Med KAYLIE Young 01/30 Released w/o Limitations [facility] ([facility]) [facility]) OUTPATIENT [id number] Pain in Joshi areas RENNY DIANA 02/12 Released w/o Limitations [facility] ([facility]) [facility] D Team) TELE CONSULT [id number] Notes Entered by: MARK CURIEL 08 Mar 2019 0938 ------- ------- ------- ------- -- SYM/ MONKEY BITE AND COLD SYMPTOM S/+1 [phone] LIBORIO SIMMONS 03/08 Referred- Emergency Department [facility] ([facility]) [facility]( a [facility]) OUTPATIENT [id number] Audiogr am 465B PASTOR AGUILAR 04/25 Released w/o Limitations [facility]( [facility]) OUTPATIENT [id number] Audiogr am follow up ED LOPEZ 05/19 Released w/o Limitations [facility] ( [facility] D Team) TELE CONSULT [id number] Notes Entered by: ARTHUR HSU 31 May 2019 1603 ------- ------- ------- ------- -- SYM: FEVER, BODY ACHES/( [phone] 5/DARINEL LEROY 05/30 Advice Assessment [facility] ([facility]) [facility] Team 1) OUTPATIENT [id number] fever x5 day runny nose KELECHI PRADO 06/06 Released w/o Limitations [facility] Team 1) [facility] Therapy [facility]) TELE CONSULT [id number] Notes Entered by: YAZAN WALLACE 08 Jun 2019 0931 ------- ------- ------- ------- -- PUI check in RIKY WALLACE 06/07 [place] ([facility]) [facility]) OUTPATIENT [id number] A ULICES CHAO 06/23 Released w/o Limitations [facility] ([facility]) [facility] D Team) TELE CONSULT [id number] Notes Entered by: MARK CURIEL 25 Jul 2019 0918 ------- ------- ------- ------- -- f/u for pneumon ia/ /SHYANNE Galicia 07/24 Other Not Elsewhere Classified [facility] ([facility]) [facility]) OUTPATIENT [id number] Notes Entered by: KWAME GUILLEN 09 Aug 2019 0919 ------- ------- ------- ------- -- TRI SERVICE PHA/RENNY HEARD 08/08 Released w/o Limitations [facility] ([facility]) [facility] D Team) OUTPATIENT [id number] ear pain, congest ion, and feveris h RENNY DIANA 08/18 Released w/o Limitations [facility] ([facility]) [facility] D Team) OUTPATIENT [id number] PT NEED WAVIER FOR PCS, DISCUSS W/RENNY HALE 08/25 Released w/o Limitations [facility] ([facility]) [facility]19 [facility] TELE CONSULT [id number] Notes Entered by: CRISTOFER CASSIDY [facility] 24 Oct 2019 0714 ------- ------- ------- ------- -- COVID CARE LINE KEREN CASSIDY [facility] 10/22 Referred for Appointment [facility] (Ops[facility] e2 COVID19 Hotline ) [facility]( a [facility] D Team) OUTPATIENT [id number] fatigue , nausea, diarrhe a, nasal dischar ge x2 days LINDSAY CRESPO W 10/23 Sick at Home/Quarter s [facility] ([facility] D [facility]) [facility] A Team) OUTPATIENT [id number] cough x5 days with chills and congest ion VINCE CORTES E 10/27 Sick at Home/Quarter s [facility] ([facility]) [facility] D Team) TELE CONSULT [id number] Notes Entered by: CHERYL PATEL 30 Oct 2019 1330 ------- ------- ------- ------- -- SYM: AGGIE ISSUE/R MAGALI/ 634 0900/LIBORIO BUNCH 10/29 Other Not Elsewhere Classified [facility] ([facility] D [facility]) [facility] D Team) OUTPATIENT [id number] Notes Entered by: Dheeraj CASTILLO 18 Dec 2019 0715 ------- ------- ------- ------- -- [facility] BRANDONCHI [facility] 12/16 Released w/o Limitations [facility] ([facility]) [facility]) OUTPATIENT [id number] Notes Entered by: JEREMIAH BOBO 24 Dec 2019 1216 ------- ------- ------- ------- -- ALEXIS Camposei n ABS, UYEN Simeon 12/23 Released w/o Limitations [place] ([facility]) [facility] Wo Active Duty Team A) TELE CONSULT [id number] Notes Entered by: DEREK BANEGAS 15 May 2020 1223 ------- ------- ------- ------- -- STI testing CHRISTINE COHN Dwayne 05/15 [facility](RS Wo Active Duty Team A) [facility] Wo Active Duty Team A) OUTPATIENT [id number] Notes Entered by: Emma COHN 15 May 2020 1243 ------- ------- ------- ------- -- Walk is possibl e STI treatme nt RITA ANDREWS 05/15 Released w/o Limitations [facility] Wo Active Duty Team A) [facility] Active Duty Team A) OUTPATIENT [id number] neck px // [phone] RITA ANDREWS 05/18 Released w/o Limitations [facility] Wo Active Duty Team A) [facility] Wo Active Duty Team A) TELE CONSULT [id number] Notes Entered by: MICHELLE RAY I 20 May 2020 1042 ------- ------- ------- ------- -- initial dry ANGELIQUE Elkins 05/20 [facility] Wo Active Duty Team A) [facility] FP Behaviora l Hlt Opt) OUTPATIENT [id number] Anxiety /Depres FRED Antunez 05/27 Released w/o Limitations [facility] FP Behavio ral Hlt Opt) [facility](RS Wo Active Duty Team A) OUTPATIENT [id number] 2 !1300 TDN RITA ANDREWS S 05/30 Released w/o Limitations [facility] Wom Active Duty Team A) [facility](RS[facility] Hearing Conservat ion) OUTPATIENT [id number] ohe hearing MARTIN-LINDSAY CO, JAYNE 06/14 Released w/o Limitations [facility] Hearing Conserv ation) [facility](RSN Immunizat ion) OUTPATIENT [id number] COVID 19 VAX MODERNA 1 JESI GOOD 06/30 Released w/o Limitations [facility](RSN Immuniz ation) [facility] Nutrition Care) OUTPATIENT [id number] Cliff [email or web address] Ortega 07/15 Released w/o Limitations [facility](L Nutriti on Care) [facility] Wellness Center) OUTPATIENT [id number] BOD/MET LINDSAY RUVALCABA 07/23 Released w/o Limitations [facility] [place]) [facility] Wellness Center) OUTPATIENT [id number] JAM ASKEW 07/24 Released w/o Limitations [facility]) [facility] Wo Active Duty Team A) TELE CONSULT [id number] Notes Entered by: RUPA CALDWELL 24 Jul 2020 1018 ------- ------- ------- ------- -- Morgan asher for sleep study REBEL COX 07/24 [facility] Wo Active Duty Team A) [facility](RSN Immunizat ion) OUTPATIENT [id number] COVID-1 9 VACC MODERNA DOSE 2 ENRIQUE RAMÍREZ 07/28 Released w/o Limitations [facility](RSN Immuniz ation) [facility] Wellness Center) OUTPATIENT [id number] [facility] JAM TITUS 08/26 Released w/o Limitations [facility]) [facility] Wom Active Duty Team A) TELE CONSULT [id number] Notes Entered by: DEREK BANEGAS 31 Aug 2020 0741 ------- ------- ------- ------- -- radiolo gy request - pls see today REBEL COX 08/31 [facility] Wo Active Duty Team A) [facility] OP Medicine Clinic) OUTPATIENT [id number] Notes Entered by: CLIFTON BHAKTA 31 Aug 2020 0908 ------- ------- ------- ------- -- a CLIFTON BHAKTA 08/31 [facility] Limitations [facility] OP Medicin e Clinic) [facility] Wo Active Duty Team A) OUTPATIENT [id number] [facility] DANYA HICKS 08/31 [facility]ased w/o Limitations [facility] Wo Active Duty Team A) [facility] Wo Active Duty Team A) TELE CONSULT [id number] Notes Entered by: MICHELLE RAY I 11 Sep 2020 1040 ------- ------- ------- ------- -- ER f/u for partial ly praveena price ngs RBEEL COX 09/11 [facility] Wo Active Duty Team A) [facility] Sleep Clinic) OUTPATIENT [id number] [facility] [id number] YISSEL BALLESTEROS 09/11 Released w/o Limitations [facility] Sleep Clinic) [facility] Wom Active Duty Team A) OUTPATIENT [id number] Right hamstri ng LARRY Reza 09/11 Released with Work/Duty Limitations [facility] Wom Active Duty Team A) [facility] Wom Active Duty Team A) TELE CONSULT [id number] Notes Entered by: MICHELLE RAY I 20 Nov 2020 0844 ------- ------- ------- ------- -- Adderal l RX refill request FRED FLORES 11/20 [facility] Wo Active Duty Team A) [facility] Sleep Study Lab) OUTPATIENT [id number] HST PICKUP JIN DALY 12/09 Released w/o Limitations [facility] Sleep Study Lab) [facility] Sleep Clinic) OUTPATIENT [id number] HST DROPOFF /RESULT S F2F YISSEL BALLESTEROS 12/10 Released w/o Limitations [facility] Sleep Clinic) [facility](L Emergency Room) OUTPATIENT [id number] DONTA FRITZ 12/22 Released w/o Limitations [facility](L Emergen cy Room) [facility] Wo Active Duty Team A) TELE CONSULT [id number] Notes Entered by: DEREK BANEGAS 29 Dec 2020 1340 ------- ------- ------- ------- -- profile request DANYA Cox 12/29 [facility] Wom Active Duty Team A) [facility] Wo Active Duty Team A) TELE CONSULT [id number] Notes Entered by: ZOLTAN OROZCO 30 Dec 2020 1230 ------- ------- ------- ------- -- Doreen FLORES FRED MELISSA 12/30 Other Not Elsewhere Classified [facility] Wo Active Duty Team A) [facility](LSL Emergency Room) OUTPATIENT [id number] NAOMY HOUSE 02/07 Released w/o Limitations [facility] Emergen cy Room) [facility](Opsur ge Multi-Spe cialty Cl) TELE CONSULT [id number] Notes Entered by: TAZ GODOY 08 Feb 2021 1130 ------- ------- ------- ------- -- COVID Test Walk-In TAZ GODOY 02/08 Other Not Elsewhere Classified [facility](Ops urge Multi-S pecialt y Cl) [facility] Wo Active Duty Team A) TELE CONSULT [id number] Notes Entered by: MICHELLE RAY I 10 Feb 2021 1512 ------- ------- ------- ------- -- Quarter s verific ation needed SANDIP MOYA 02/10 Other Not Elsewhere Classified [facility] Wo Active Duty Team A) [facility](N Base Op Med Clinic) OUTPATIENT [id number] OHE, 177A Acft, CBN [id number] JULIANO TERAN 03/09 Released w/o Limitations [facility] Base Op Med Clinic) [facility](RS[facility] Hearing Conservat ion Cln) OUTPATIENT [id number] 177A AUDIOGR AM BELÉN COREY 04/02 Released w/o Limitations [facility](RS[facility] Hearing Conserv ation Cln) [facility] Wo Active Duty Team A) TELE CONSULT [id number] Notes Entered by: ZOLTAN OROZCO 20 May 2021 0903 ------- ------- ------- ------- -- SICK sx/Rx needed PAPITO VASQUEZ 05/20 Advice Assessment [facility] A) [facility] Active Duty Team A) TELE CONSULT [id number] Notes Entered by: MAGY BAH 31 May 2021 0803 ------- ------- ------- ------- -- on going SICK sx / Cov + PAPITO VASQUEZ 05/31 [facility] Active Duty Team A) [facility] Family Med Non-AD Team E) TELE CONSULT [id number] Notes Entered by: Dheeraj KANG 09 Jun 2021 1145 ------- ------- ------- ------- -- STI Check PAPITO VASQUEZ 06/09 [facility] Family Med Non-AD [facility] E) [facility] Active Duty Team A) OUTPATIENT [id number] STI with abd pain and flank pain JIN ISBELL 06/09 Released w/o Limitations [facility] Active Duty Team A) [facility] Active Duty Team D) TELE CONSULT [id number] Notes Entered by: AMISHA ISBELL 23 Jun 2021 1341 ------- ------- ------- ------- -- Lab results JIN ISBELL 06/23 [facility] Active Duty Team D) [facility] Gastroent erology) OUTPATIENT [id number] Elevati on of levels of liver transam inase levels/ [id number] GEGE AVILA 07/12 Released w/o Limitations [facility] Gastroe nterolo gy) [facility] Gastroent erology) TELE CONSULT [id number] Notes Entered by: SHEREE العراقي 22 Jul 2021 1732 ------- ------- ------- ------- -- GEGE Miner 07/22 [facility](LSL Gastroe nterolo gy) [facility] Active Duty Team A) TELE CONSULT [id number] Notes Entered by: JOCELINE HARP 03 Aug 2021 1331 ------- ------- ------- ------- -- Deploym JIN Galeana 08/03 [facility] Active Duty Team A) [facility] Base Op Med Clinic) OUTPATIENT [id number] A PHA + [id number] LYDIA CHAVEZ 08/03 Released w/o Limitations [facility] Base Op Med Clinic) [facility] Cold & Allergy Clinic) OUTPATIENT [id number] Notes Entered by: Cheryl HOLLEY 10 Aug 2021 1017 ------- ------- ------- ------- -- IDRADHA JOSHI 08/10 Released w/o Limitations [facility](n Cold & Allergy Clinic) [facility] Gastroent erology) TELE CONSULT [id number] Notes Entered by: SHEREE العراقي 27 Aug 2021 1509 ------- ------- ------- ------- -- GEGE Miner 08/27 [facility](LSL Gastroe nterolo gy) [facility] Cold & Allergy Clinic) OUTPATIENT [id number] [facility] DRAKE SEARS 09/15 Sick at Home/Quarter s [facility] Cold & Allergy Clinic) [facility] Wo Active Duty Team A) TELE CONSULT [id number] 9 Notes Entered by: Shivani KANG 20 Sep 2021 0713 ------- ------- ------- ------- -- Adverse Reactio n to Antibio tic REBEL COX 09/20 Referred for Appointment [facility] [facility] Wo Active Duty Team A) [facility]) OUTPATIENT [id number] [facility] DRAKE SEARS 09/20 Sick at Home/Quarter s [facility]) [facility] Wo Active Duty Team A) TELE CONSULT [id number] Notes Entered by: MAGY BAH 28 Sep 2021 1153 ------- ------- ------- ------- -- Chiro referra PAPITO Encinas 09/28 Other Not Elsewhere Classified [facility] Wo Active Duty Team A) [facility] Chiroprac tic Clinic) OUTPATIENT [id number] Low back pain, unspeci quyened JARRET LERNER 10/04 Released w/o Limitations [facility] Chiropr actic Clinic) [facility] Wo Active Duty Team A) TELE CONSULT [id number] Notes Entered by: HENRRY RICO P 06 Oct 2021 1534 ------- ------- ------- ------- -- Working Waiver Request ANUM RICO 10/06 Other Not Elsewhere Classified [facility] Wo Active Duty Team A) [facility] Emergency Room) OUTPATIENT [id number] TAMIKO MEYER 10/08 Released w/o Limitations [facility] Emergen cy Room) [facility] Chiropra tic Clinic) OUTPATIENT [id number] Low R back JARRET LERNER 10/11 Released w/o Limitations [facility] Chiropr actic Clinic) [facility] Wo Active Duty Team A) TELE CONSULT [id number] Notes Entered by: Shivani KANG 15 Oct 2021 1236 ------- ------- ------- ------- -- KELLI Cameron 10/15 Referred for Appointment [facility] Wo Active Duty Team A) [facility] Chiropra tic Clinic) OUTPATIENT [id number] Low R back JARRET LERNER 10/18 Released w/o Limitations [facility] Chiropr actic Clinic) [facility] Wo Active Duty Team A) OUTPATIENT [id number] ER f/u w/ back pain, still in pain JIN ISBELL 10/18 [facility]ased w/o Limitations [facility] D) TELE CONSULT [id number] Notes Entered by: AMISHA ISBELL 20 Oct 202121 ------- ------- ------- ------- -- Low back FRED FLORES 10/20 Advice Assessment [facility] Wo Active Duty Team D) [facility] Chiroprac tic Clinic) OUTPATIENT [id number] Low R back JARRET LERNER 11/11 Released w/o Limitations [facility] Chiropr actic Clinic) [facility] Chiroprac [facility]) OUTPATIENT [id number] Low R back JARRET LERNER 11/25 Released w/o Limitations [facility] Chiropr actic [facility]) [facility]) OUTPATIENT [id number] Low R back JARRET LERNER 12/02 [facility]ased w/o Limitations [facility] Wo Active Duty Team A) TELE CONSULT [id number] Notes Entered by: HENRRY RICO 02 Dec 2021 1701 ------- ------- ------- ------- -- Confide PAPITO Rahman 12/02 Other Not Elsewhere Classified [facility] Wo Active Duty Team A) [facility] Duty Team A) TELE CONSULT [id number] Notes Entered by: Casey RODRIGUEZ 14 Dec 2021 0915 ------- ------- ------- ------- -- Waiver extensi on and modific atKELLI Ram 12/14 Other Not Elsewhere Classified [facility] Wo Active Duty Team A) [facility]) OUTPATIENT [id number] Low R back JARRET LERNER Huang 12/20 Released w/o Limitations [facility] Chirowi act Clinic) [facility] Wo Active Duty Team A) TELE CONSULT [id number] Notes Entered by: Casey RODRIGUEZ 20 Dec 2021 09 ------- ------- ------- ------- -- JOCE mobilit y waiver confirm ation needed PAPITO VASQUEZ 12/20 Advice Assessment [facility] Wo Active Duty Team A) [facility] Wo Active Duty Team A) TELE CONSULT [id number] Notes Entered by: Shivani KANG 04 Jan 2022 0925 ------- ------- ------- ------- -- BERENICE Smalls 01/04 Other Not Elsewhere Classified [facility] Wo Active Duty Team A) [facility] Physical Therapy) OUTPATIENT [id number] Low back pain, unspeci fied ARMAAN ORTEGA 01/11 Released w/o Limitations [facility] Physica l Therapy ) [facility]) OUTPATIENT [id number] back pain ANGE ELLIS 01/19 Released w/o Limitations [facility] ) [facility] Wo Active Duty Team D) TELE CONSULT [id number] AKILAHJIN 01/19 [facility] Wo Active Duty Team D) [facility] Chiroprac tic Clinic) OUTPATIENT [id number] low back EDUARDA, JARRET Huang 01/25 Released w/o Limitations [facility] Chiropr actic Clinic) [facility] Wo Active Duty Team A) TELE CONSULT [id number] Notes Entered by: Casey RODRIGUEZ 31 Jan 2022 1353 ------- ------- ------- ------- -- STD check LIZ COFFEY 01/31 [facility] Wo Active Duty Team A) [facility] OUTPATIENT [id number] Other interve rtebral disc degener ation, lumbar region RANDY SANCHEZ ICH 02/01 Released w/o Limitations [facility]) [facility]) OUTPATIENT [id number] back pain LEISE CANADA 02/02 Released w/o Limitations [facility] ) [facility] OUTPATIENT [id number] RIGHT L4-L5 TFESI DANIEL, RANDY VLADIMIROV ICH 02/02 Released w/o Limitations [facility] Wo Active Duty Team A) TELE CONSULT [id number] Notes Entered by: MAGY BAH 07 Feb 2022 1034 ------- ------- ------- ------- -- Talk to PCM about 365 ANUM Espinosa 02/07 Other Not Elsewhere Classified [facility] Wo Active Duty Team A) [facility]) OUTPATIENT [id number] back ELLIS, ANGE T 02/08 Released w/o Limitations [facility] Phys[facility] Therapy ) [facility]) OUTPATIENT [id number] 7 back pain ARMAAN ORTEGA J 02/09 Released w/o Limitations [facility] ) [facility]) OUTPATIENT [id number] Cosmeti c eval acne scarrin gRox [phone] RUCHI HOLLEY 02/09 Released w/o Limitations [facility]) [facility]) OUTPATIENT [id number] back pain JACLYN MARTIN 02/11 Released w/o Limitations [facility] Phys[facility] ) [facility]) TELE CONSULT [id number] Notes Entered by: Casey HOLLEY 11 Feb 2022 1314 ------- ------- ------- ------- -- biopsy result RADHA GAYTAN Reshma 02/11 [facility]) [facility] Clinic) OUTPATIENT [id number] FOUNDAT IONS BERNARDA CHOWDHURY 02/16 Released w/o Limitations [facility] Clinic) [facility]) OUTPATIENT [id number] back pain JACLYN MARTIN A 02/16 Released w/o Limitations [facility] Phys[facility] Therapy ) [facility]) OUTPATIENT [id number] low back ANGE ELLIS 03/02 Released w/o Limitations [facility] ) [facility]) OUTPATIENT [id number] Laser resurfa cing paid. [phone] RUCHI HOLLEY 03/03 Released w/o Limitations [facility]) [facility](n [facility]) OUTPATIENT [id number] Notes Entered by: Cheryl NUNO 08 Mar 2022 0820 ------- ------- ------- ------- -- CCAC ZAKIA DONAHUE 03/08 Released w/o Limitations [facility]) [facility]) OUTPATIENT [id number] back pain ARMAAN ORTEGA 03/09 Released w/o Limitations [facility] Phys[facility] ) [facility]) OUTPATIENT [id number] 0 back and neck ANGE ELLIS 03/17 Released w/o Limitations [facility] Phys[facility] ) [facility]) OUTPATIENT [id number] back and neck ANGE ELLIS 03/24 Released w/o Limitations [facility](N Physica l Therapy ) [facility] Physical Therapy) OUTPATIENT [id number] LBP ELISE CANADA 03/28 Released w/o Limitations [facility](N Physica l Therapy ) [facility] Conserv[facility]n) OUTPATIENT [id number] Audiogr am, 177A ARMANDOADIA 04/04 Released w/o Limitations [facility]ion Cln) [facility] Physical Therapy) OUTPATIENT [id number] Back ARMAAN ORTEGA 04/05 Released w/o Limitations [facility] Physica l Therapy ) [facility] Base Op Med Clinic) OUTPATIENT [id number] 3 OHE, 226B, CBN [id number] PARUL ADA O 04/08 Released w/o Limitations [facility] Base Op Med Clinic) [facility] Wo Active Duty Team A) OUTPATIENT [id number] Neck, shoulde r, knee px MOMMAERTS, LIZ L 04/12 Released w/o Limitations [facility] 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 Procedure Procedure Type Code Date Perfomer Comments [facility] e SCREENING TEST, PURE TONE, AIR ONLY 10/27 DoD SCREENING TEST, PURE TONE, AIR ONLY 10/26 [facility] SIMPLE REPAIR OF SUPERFICIAL WOUNDS OF SCALP, NECK, AXILLAE, EXTERNAL GENITALIA, TRUNK AND/OR EXTREMITIES (INCLUDING HANDS AND FEET); 2.5 CM OR LESS 02/21 [facility] CIRCUMCISION 11/07 DoD OTHER PHOTOTHERAPY 11/07 [facility] BRIEF EMOTIONAL/BEHAVIORA L ASSESSMENT (EG, DEPRESSION INVENTORY, ATTENTION-DEFICIT/H YPERACTIVITY DISORDER [ADHD] SCALE), WITH SCORING AND DOCUMENTATION, PER STANDARDIZED INSTRUMENT 04/15 DoD PSYCHOTHERAPY, 60 MINUTES WITH PATIENT 04/08 [facility] SPIROMETRY, INCLUDING GRAPHIC RECORD, TOTAL AND TIMED VITAL CAPACITY, EXPIRATORY FLOW RATE MEASUREMENT(S), WITH OR WITHOUT MAXIMAL VOLUNTARY VENTILATION 04/08 DoD THERAPEUTIC PROCEDURE, 1 OR MORE AREAS, EACH 15 MINUTES; THERAPEUTIC EXERCISES TO DEVELOP STRENGTH AND ENDURANCE, RANGE OF MOTION AND FLEXIBILITY 04/05 [facility] PURE TONE AUDIOMETRY (THRESHOLD), AUTOMATED; AIR ONLY 04/04 [facility] APPLICATION OF A MODALITY TO 1 OR MORE AREAS; ELECTRICAL STIMULATION (UNATTENDED) 03/28 DoD APPLICATION OF A MODALITY TO 1 OR MORE AREAS; ELECTRICAL STIMULATION (UNATTENDED) 03/24 DoD THERAPEUTIC PROCEDURE, 1 OR MORE AREAS, EACH 15 MINUTES; THERAPEUTIC EXERCISES TO DEVELOP STRENGTH AND ENDURANCE, RANGE OF MOTION AND FLEXIBILITY 03/17 [facility] INJECTION(S), ANESTHETIC AGENT(S) AND/OR STEROID; TRIGEMINAL NERVE, EACH BRANCH (IE, OPHTHALMIC, MAXILLARY, MANDIBULAR) 03/10 [facility] THERAPEUTIC PROCEDURE, 1 OR MORE AREAS, EACH [...] ENDURANCE, RANGE OF MOTION AND FLEXIBILITY 02/16 [facility] GROUP PSYCHOTHERAPY (OTHER THAN OF A MULTIPLE-FAMILY [...] ENDURANCE, RANGE OF MOTION AND FLEXIBILITY 02/08 [facility] TELE ASSESS & MGT SRV PROV QUAL [...] MED DIS 12/14 DoD QUALIFIED NONPHYSICIAN HEALTH AIR CONTROL/ANTI AIR WARFARE OFFICER ONLINE DIGITAL ASSESSMENT AND MANAGEMENT, FOR AN [...] WITH OR WITHOUT MAXIMAL VOLUNTARY VENTILATION 03/11 [facility] HOSPITAL OUTPATIENT CLINIC VISIT SPECIMEN COLLECTION FOR [...] WAIVER SERVICES; NOT OTHERWISE SPECIFIED (NOS) 12/10 [facility] SLEEP STUDY, UNATTENDED, SIMULTANEOUS RECORDING; MINIMUM OF [...] WAIVER SERVICES; NOT OTHERWISE SPECIFIED (NOS) 09/11 [facility] BRIEF COMM TECH-BASE SERV,E.G. VIRT CHK-IN,BY PHYS/OTH QUAL HCP,RPT E&M SERV,PROV TO EST PT,NOT ORIG FRM REL E/M SERV PROV W/IN PREV 7DAY NOR LEAD TO E/M SRV/PX W/IN NEXT 24HR/SOON YAMIL; 5-10 MIN DISC 09/01 [facility] ADMINISTRATION OF PATIENT-FOCUSED HEALTH RISK ASSESSMENT INSTRUMENT (EG, HEALTH HAZARD APPRAISAL) WITH SCORING AND DOCUMENTATION, PER STANDARDIZED INSTRUMENT 08/31 DoD CRUTCHES UNDERARM, OTHER THAN WOOD, ADJUSTABLE OR FIXED, PAIR, WITH PADS, TIPS AND HANDGRIPS 08/30 [facility] PATIENT EDUCATION, NOT OTHERWISE CLASSIFIED, NON-PHYSICIAN PROVIDER, GROUP, PER SESSION 08/26 DoD IMMUNIZATION ADM,INTRAMUSCULAR INJECTION OF SEVERE AC RESPIRATORY SYNDROME CORONAVIR 2 (SARSCOV-2) (CORONAVIR DIS [COVID-19]) VACC,MRNALNP,SPIKE PROT,PRESERVATIVE FREE,100 MCG/0.5ML DOSAG;SECOND DOSE 07/28 [facility] NUTRITION CLASSES, NON-PHYSICIAN PROVIDER, PER SESSION 07/24 [facility] OXYGEN UPTAKE, GAS ANALYSIS; REST, INDIRECT (SEPARATE PROCEDURE) 07/23 DoD WAIVER SERVICES; NOT OTHERWISE SPECIFIED (NOS) 07/15 [facility] IMMUNIZATION ADM,INTRAMUSCULAR INJECTION OF SEVERE AC RESPIRATORY SYNDROME CORONAVIR 2 (SARSCOV-2) (CORONAVIR DIS [COVID-19]) VACCINE,MRNALNP,SPI KE PROT,PRESERVATIVE FREE,100 MCG/0.5ML DOSAG;1ST DOSE 06/30 [facility] NEEDLE, STERILE, ANY SIZE, EACH 06/18 [facility] PURE TONE AUDIOMETRY (THRESHOLD), AUTOMATED; AIR ONLY [...] WAIVER SERVICES; NOT OTHERWISE SPECIFIED (NOS) 08/25 [facility] ADMINISTRATION OF PATIENT-FOCUSED HEALTH RISK ASSESSMENT INSTRUMENT [...] &/KIERA ASSESS FUNC OUTCOME TYP,20 MIN SPENT [id number] W PAT&/FAM 07/12 DoD APPLICATION OF A MODALITY TO 1 OR MORE AREAS; TRACTION, MECHANICAL 07/09 DoD APPLICATION OF A MODALITY TO 1 OR MORE AREAS; TRACTION, MECHANICAL 06/28 [facility] OSTEOPATHIC MANIPULATIVE TREATMENT (OMT); 1-2 BODY REGIONS INVOLVED 06/28 DoD ADMINISTRATION OF PATIENT-FOCUSED HEALTH RISK ASSESSMENT INSTRUMENT (EG, HEALTH HAZARD APPRAISAL) WITH SCORING AND DOCUMENTATION, PER STANDARDIZED INSTRUMENT 06/12 [facility] CHIROPRACTIC MANIPULATIVE TREATMENT (CMT); SPINAL, 3-4 REGIONS 06/01 DoD ADMINISTRATION OF PATIENT-FOCUSED HEALTH RISK ASSESSMENT INSTRUMENT (EG, HEALTH HAZARD APPRAISAL) WITH SCORING AND DOCUMENTATION, PER STANDARDIZED INSTRUMENT 05/30 [facility] SCREENING TEST, PURE TONE, AIR ONLY 05/15 [...] PROVIDE W/IN THE PREV 7 DAYS,USE THE INTERNET/[employer] 05/22 DoD APPLICATION OF A MODALITY [...] OF LOW COMPLEXITY,TYPICALL Y,20 MIN ARE SPENT [id number] W THE PATIENT &/FAMILY 03/28 DoD PURE [...] EQUIP) DIR ONE-ON-ONE CONT,EA 15 MINUTES 04/18 [facility] PURE TONE AUDIOMETRY (THRESHOLD), AUTOMATED; AIR ONLY 04/15 [facility] HEALTH AND BEHAVIOR INTERVENTION, EACH 15 MINUTES, [id number]; INDIVIDUAL 04/12 [facility] DETERMINATION OF REFRACTIVE STATE 04/07 DoD TELE [...] L MONITOR, HEALTH-ORIENT QUESTIONNAIRES), EA 15 MIN [id number] W THE PATIENT; INIT ASSESSMENT 03/28 DoD TELE ASSESS & MGT SRV PROV QUAL NONPHYS HLTH CARE PRO TO EST PAT,PARENT,GUARD NOT ORIG REL ASSESS & MGT SRV PROV W/IN PREV 7 DAYS NOR LEAD ASSESS & MGT SRV/PX W/IN NXT 24H/SOON APT; 11-20 MIN MED DIS 03/25 [facility] Physical Therapy: ___ Se ion Segments, 15 Minutes Each Physical Therapy: ___ Session Segments, 15 Minutes Each [id number] 05/22 THI NESS [facility] Non-Physician Phone Call To Patient/Provider Brief (5-10min) Non-Physician Phone Call To Patient/Provider Brief (5-10min) 80788 05/20 KAYLIE EVANS [facility] Modalities Heat Hot Packs Modalities Heat Hot Packs 53951 05/17 THI NESS [facility] Physical Therapy: ___ Se ion Segments, 15 Minutes Each Physical Therapy: ___ Session Segments, 15 Minutes Each 34019 05/17 THI NESS Modalities Heat Hot Packs Modalities Heat Hot Packs 40823 05/12 THI NESS Physical Therapy: ___ Se ion Segments, 15 Minutes Each Physical Therapy: ___ Session Segments, 15 Minutes Each 53240 05/12 THI NESS Phys Therapy Education Self Care Training - Per 15 Minutes Phys Therapy Education Self Care Training - Per 15 Minutes 00835 04/18 BILLY DON Exercises A isted Exercises For ROM Exercises Assisted Exercises For ROM 86832 04/18 BILLY DON Physical Medicine Physical Therapy Evaluation Physical Medicine Physical Therapy Evaluation 01758 04/18 BILLY DON Patient education, not otherwise cla ified, non-physician provider, group, per se ion 04/17 MADHAVI ORTIZ Threshold Audiogram (Pure Tone) Automated Threshold Audiogram (Pure Tone) Automated 0208T 04/17 MADHAVI ORTIZ Non-Physician Phone Call To Pt/Provider Intermed (11-20 min) Non-Physician Phone Call To Pt/Provider Intermed (11-20 min) 62054 04/14 KAYLIE EVANS Health And Behavior Intervention, Each 15 Minutes Individual Health And Behavior Intervention, Each 15 Minutes Individual 12820 04/11 JASON GUERRA Ophthalmological New Patient Start Comprehensive Care Ophthalmological New Patient Start Comprehensive Care 44268 04/07 TOBIN FRAGA Determination Of Refractive State Determination Of Refractive State 10369 04/07 TOBIN FRAGA Health And Behav A e mt Each 15 Min Initial A e ment Health And Behav Assessmt Each 15 Min Initial Assessment 13041 04/05 JASON GUERRA Non-Physician Phone Call To Pt/Provider Intermed (11-20 min) Non-Physician Phone Call To Pt/Provider Intermed (11-20 min) 70355 03/30 KAYLIE EVANS Audiogram (Screening) Audiogram (Screening) 89575 10/28 WINTER WIN [facility] Physical Therapy: ___ Se ion Segments, 15 Minutes Each Physical Therapy: ___ Session Segments, 15 Minutes Each 73569 07/13 MIGUEL PETERSON Modalities Cryotherapy Cold Packs Modalities Cryotherapy Cold Packs 90177 07/13 MIGUEL PETERSON Physical Therapy Gait Training Physical Therapy Gait Training 18166 07/13 MIGUEL PETERSON Physical Medicine - Group Physical Therapy Se ion Physical Medicine - Group Physical Therapy Session 70366 07/09 TALHA FRANKLIN [facility] Threshold Audiogram (Pure Tone) Automated Threshold Audiogram (Pure Tone) Automated 0208T 07/02 FLIP KWAN [facility] Patient education, not otherwise cla ified, non-physician provider, group, per se JAM Aguero [facility] Brief communication technology-based service, e.g. virtual check-in, [...] 5-10 minutes of medical discu CLIFTON Mon [facility] Waiver services; not otherwise specified (NOS) YISSEL BALLESTEROS [facility] Spirometry Spirometry 49621 LYN LEWIS [facility] Non-Physician Phone Call To Patient/Provider Brief (5-10min) Non-Physician Phone Call To Patient/Provider Brief (5-10min) 06238 LARRY ELAINE [facility] Sleep Study Unattended Record: Heart Rate, O2 Saturation, Respiratory Analysis Sleep Study Unattended Record: Heart Rate, O2 Saturation, Respiratory Analysis 80063 ANGELES DALY [facility] Hospital outpatient clinic visit specimen collection for severe acute respiratory syndrome coronavirus 2 (sars-cov-2) (coronavirus disease [covid-19]), any specimen source TAZ GODOY [facility] Threshold Audiogram (Pure Tone) Automated Threshold Audiogram (Pure Tone) Automated 0208T BELÉN COREY [facility] Non-Physician Phone Call To Pt/Provider Intermed (11-20 min) Non-Physician Phone Call To Pt/Provider Intermed (11-20 min) 34002 PAPITO VASQUEZ [facility] Psychometric Neuropsych Testing Battery Admin By Computer Psychometric Neuropsych Testing Battery Admin By Computer 97819 LINDA RUDOLPH [facility] Supervised Injection Intramuscular Antibiotic Supervised Injection Intramuscular Antibiotic 82389 DRAKE DOWNING Verified pt's 6 rights. Pt [...] in waiting room 10 mins after injection. [facility] Chiropractic Manip Treatmt (CMT) Spinal Three To Four Region Chiropractic Manip Treatmt (CMT) Spinal Three To Four Region 62693 JARRET LERNER Mobilization Soft Ti ue Mobilization Soft Tissue 57038 JARRET LERNER 8 minutes [facility] Modalities Electrical Stimulation Unattended Modalities Electrical Stimulation Unattended 29432 JARRET LERNER Modalities Heat Hot Packs Modalities Heat Hot Packs 40333 JARRET LERNER Osteopathic Manip Treatment (OMT) 1-2 Body Regions Involved Osteopathic Manip Treatment (OMT) 1-2 Body Regions Involved 18096 ARMAAN ORTEGA Physical Therapy: ___ Se ion Segments, 15 Minutes Each Physical Therapy: ___ Session Segments, 15 Minutes Each 91445 ARMAAN ORTEGA Exercise equipment ARMAAN ORTEGA Corticosteroid Injection Interlaminar Approach Lumbar Corticosteroid Injection Interlaminar Approach Lumbar 87981 RANDY SANCHEZ Corticosteroid Inj Interlaminar Lumbar L4 - L5 Corticosteroid Inj Interlaminar Lumbar L4 - L5 28254 RANDY SANCHEZMIROSHYAM Hazel Physical Medicine Physical Therapy Re-Evaluation Physical Medicine Physical Therapy Re-Evaluation 64058 ARMAAN ORTEGA Shaving Of Lesion Ankles .6 to 1cm Shaving Of Lesion Ankles .6 to 1cm 59985 RUCHI HOLLEY After explaining the nature of [...] Sterile dressing applied and wound care discussed. [facility] Destruction Of Benign Lesion By Any Method 1 - 14 Lesions Destruction Of Benign Lesion By Any Method 1 - 14 Lesions 73856 RUCHI HOLLEY After verbally discussing reason for [...] ointment application to healing crusts if desired. [facility] Psychiatric Therapy Group (Interactive) Psychiatric Therapy Group (Interactive) 78564 BERNARDA CHOWDHURY in Pain Education Group [phone]. SM was not assessed individually for this [...] and Online Resources and Back Facts handouts. [facility] Integumentary Procedures facial dermabrasion Segmental Face Integumentary Procedures facial dermabrasion Segmental Face 51215 RUCHI HOLLEY [facility] Nerve Block Trigeminal Nerve Block Trigeminal 46281 RUCHI HOLLEY [facility] Mobilization Soft Ti ue Mobilization Soft Tissue 81907 ARMAAN ORTEGA [facility] Health And Behavior Intervention, Each 15 Minutes Individual Health And Behavior Intervention, Each 15 Minutes Individual 13813 10/21 BERTA BOWER [facility] Health And Behav A e mt Each 15 Min Initial A e ment Health And Behav Assessmt Each 15 Min Initial Assessment 13169 10/21 BERTA BOWER [facility] Physical Medicine Physical Therapy Re-Evaluation Physical Medicine Physical Therapy Re-Evaluation 32270 07/12 ERICK BRENNAN [facility] Traction Equipment Traction Equipment 78911 07/08 MATTHEW LLAMAS [facility] Traction Equipment Traction Equipment 69442 06/27 MATTHEW LLAMAS [facility] Osteopathic Manip Treatment (OMT) 1-2 Body Regions Involved Osteopathic Manip Treatment (OMT) 1-2 Body Regions Involved 45688 06/27 ERICK BRENNAN [facility] Physical Therapy: ___ Se ion Segments, 15 Minutes Each Physical Therapy: ___ Session Segments, 15 Minutes Each 37667 06/27 ERICK BRENNAN Chiropractic Manip Treatmt (CMT) Spinal Three To Four Region Chiropractic Manip Treatmt (CMT) Spinal Three To Four Region 67219 06/01 RIAN SIMMS Internet Med Svc Qual Nonphys Healthcare Prof Estab Patient Internet Med Svc Qual Nonphys Healthcare Prof Estab Patient 88083 05/29 ANGELES SCHWARZ Audiogram (Screening) Audiogram (Screening) 44329 05/14 SAHIL BROTHERS [facility] Physical Therapy: ___ Se ion Segments, 15 Minutes Each Physical Therapy: ___ Session Segments, 15 Minutes Each 21038 05/09 MATTHEW LLAMAS Physical Therapy: ___ Se ion Segments, 15 Minutes Each Physical Therapy: ___ Session Segments, 15 Minutes Each 46861 05/01 ERICK BRENNAN Physical Medicine Physical Therapy Re-Evaluation Physical Medicine Physical Therapy Re-Evaluation 48769 05/01 ERICK BRENNAN Modalities Heat Hot Packs Modalities Heat Hot Packs 39402 04/24 CATALINA MCDERMOTT Physical Therapy: ___ Se ion Segments, 15 Minutes Each Physical Therapy: ___ Session Segments, 15 Minutes Each 16921 04/24 CATALINA MCDERMOTT Threshold Audiogram (Pure Tone) Automated Threshold Audiogram (Pure Tone) Automated 0208T 04/19 DREAD CALIX Patient education, not otherwise cla ified, non-physician provider, individual, per se ion 04/19 DREAD CALIX Modalities Heat Hot Packs Modalities Heat Hot Packs 17152 04/11 ASUNCION POST Physical Therapy: ___ Se ion Segments, 15 Minutes Each Physical Therapy: ___ Session Segments, 15 Minutes Each 86894 04/11 ASUNCION POST Physical Therapy: ___ Se ion Segments, 15 Minutes Each Physical Therapy: ___ Session Segments, 15 Minutes Each 86549 04/03 CATALINA MCDERMOTT Non-Physician Phone Call To Patient/Provider Brief (5-10min) Non-Physician Phone Call To Patient/Provider Brief (5-10min) 96076 03/28 JOCELINE ESPINO Physical Therapy: ___ Se ion Segments, 15 Minutes Each Physical Therapy: ___ Session Segments, 15 Minutes Each 41710 03/19 CATALINA MCDERMOTT Chiropractic Manip Treatmt (CMT) Spinal [facility] [place] [facility] Chiropractic Manip Treatmt (CMT) Spinal [facility] Region 83460 03/19 RIAN SIMMS Physical Therapy: ___ Se ion Segments, 15 Minutes Each Physical Therapy: ___ Session Segments, 15 Minutes Each 12749 03/09 ERICK BRENNAN Non-Physician Phone Call To Patient/Provider Brief (5-10min) Non-Physician Phone Call To Patient/Provider Brief (5-10min) 48479 02/27 JOCELINE ESPINO Non-Physician Phone Call To Patient/Provider Brief (5-10min) Non-Physician Phone Call To Patient/Provider Brief (5-10min) 55137 01/09 GERARDO LYLE Chiropractic Manip Treatmt (CMT) Spinal [facility] Chiropractic Manip Treatmt (CMT) Spinal [facility] [place] [facility] 70412 08/31 RIAN SIMMS Chiropractic Manip Treatmt (CMT) Spinal [facility] [place] Chiropractic Manip Treatmt (CMT) Spinal [facility] [place] [facility] 04756 08/15 RIAN SIMMS Chiropractic Manip Treatmt (CMT) Spinal [facility] [place] [facility] Chiropractic Manip Treatmt (CMT) Spinal [facility] [place] [facility] 24180 07/13 RIAN SIMMS Internet Med Svc Qual Nonphys Healthcare Prof Estab Patient Internet Med Svc Qual Nonphys Healthcare Prof Estab Patient 13456 06/16 ANGELES SCHWARZ Chiropractic Manip Treatmt (CMT) Spinal [facility] Chiropractic Manip Treatmt (CMT) Spinal [facility] [place] [facility] 38848 06/13 RIAN SIMMS Chiropractic Manip Treatmt (CMT) Spinal One To Two Regions Chiropractic Manip Treatmt (CMT) Spinal One To Two Regions 03502 06/01 RIAN SIMMS Internet Med Svc Qual Nonphys Healthcare Prof Estab Patient Internet Med Svc Qual [facility] Prof Estab Patient 78671 05/30 BRADLY FRENCH Modalities Heat Hot Packs Modalities Heat Hot Packs 62301 05/28 JOCELINE CERVANTES Physical Therapy: ___ Se ion Segments, 15 Minutes Each Physical Therapy: ___ Session Segments, 15 Minutes Each 15890 05/21 JOCELINE CERVANTES Modalities Heat Hot Packs Modalities Heat Hot Packs 23357 05/21 JOCELINE CERVANTES Acoustic Reflex Testing Acoustic Reflex Testing 19013 05/18 JOCELINE AKERS Tympanometry Tympanometry 05627 05/18 JOCELINE AKERS Comprehensive Audiometry Comprehensive Audiometry 14538 05/18 JOCELINE AKERS Chiropractic Manip Treatmt (CMT) Spinal [facility] Chiropractic Manip Treatmt (CMT) Spinal [facility] [place] Region 64028 05/16 RIAN SIMMS Modalities Heat Hot Packs Modalities Heat Hot Packs 43611 05/14 JOCELINE CERVANTES Physical Therapy: ___ Se ion Segments, 15 Minutes Each Physical Therapy: ___ Session Segments, 15 Minutes Each 82411 05/14 JOCELINE CERVANTES Threshold Audiogram (Pure Tone) Automated Threshold Audiogram (Pure Tone) Automated 0208T 04/11 BHAVNA ORTEGA Patient education, not otherwise cla ified, non-physician provider, group, per se ion 04/11 BHAVNA ORTEGA Exercises A isted Exercises For ROM Exercises Assisted Exercises For ROM 18939 03/28 BILLY DON Threshold Audiogram (Pure Tone) Automated Threshold Audiogram (Pure Tone) Automated 0208T 03/27 TAMIKO WILSON Patient education, not otherwise cla ified, non-physician provider, group, per se ion 03/27 TAMIKO WILSON Non-Physician Phone Call To Pt/Provider Intermed (11-20 min) Non-Physician Phone Call To Pt/Provider Intermed (11-20 min) 78097 03/23 DARINEL BROWNLEE [facility] Non-Physician Phone Call To Patient/Provider Brief (5-10min) Non-Physician Phone Call To Patient/Provider Brief (5-10min) 42627 11/01 CARLOS REBEL HORN [facility] Non-Physician Phone Call To Patient/Provider Brief (5-10min) Non-Physician Phone Call To Patient/Provider Brief (5-10min) 08337 10/04 FLORA MAYTE KRISH [facility] Non-Physician Phone Call To Patient/Provider Brief (5-10min) Non-Physician Phone Call To Patient/Provider Brief (5-10min) 90666 07/28 KAYLIE EVANS [facility] Physical Medicine Physical Therapy Re-Evaluation Physical Medicine Physical Therapy Re-Evaluation 39072 06/15 BILLY DON [facility] Physical Therapy: ___ Se ion Segments, 15 Minutes Each Physical Therapy: ___ Session Segments, 15 Minutes Each 32018 05/30 THI NESS [facility] Modalities Heat Hot Packs Modalities Heat Hot Packs 78374 05/22 THI NESS [facility] Supervised Injection Intramuscular Antibiotic Supervised Injection Intramuscular Antibiotic 33384 [facility] And Behavior A e ment, Each 15 Minutes Health And Behavior Assessment, Each 15 Minutes 14567 FRED FRENCH [facility] Health And Behav A e mt Each 15 Min Initial A e ment Health And Behav Assessmt Each 15 Min Initial Assessment 88012 FRED FRENCH [facility] Osteopathic Manip Treatment (OMT) 3-4 Body Regions Involved Osteopathic Manip Treatment (OMT) 3-4 Body Regions Involved 60096 RITA ANDREWS [facility] Modalities Electrical Stimulation Attended Each 15 Minutes Modalities Electrical Stimulation Attended Each 15 Minutes 10222 RITA ANDREWS [facility] Physical or manipulative therapy performed for maintenance rather than taoism RITA ANDREWS [facility] Needle, sterile, any size, each RITA ANDREWS [facility] Preventive Medicine Physical Exam Vital Signs Recorded Preventive Medicine Physical Exam Vital Signs Recorded LINDSAY NORMAN [facility] Pulmonary Function - O2 Uptake - Gas Analysis Pulmonary Function - O2 Uptake - Gas Analysis 43828 LINDSAY NORMAN [facility] Nutrition cla es, non-physician provider, per se ion JAM CARLTON [facility] Health And Behavior Intervention, Each 15 Minutes Individual Health And Behavior Intervention, Each 15 Minutes Individual 86358 BERTA BOWER III, Dr. Supervised Injection Intramuscular Supervised Injection Intramuscular 71062 LINDSAY CRESPO Please give 30mg IM Ketorolac in clinic now. 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 Social History Type Response Date Comment Sour e This section is an empty social history section. [facility]
--- OUTSIDE RECORDS SUMMARY | 2024-07-16 15:07 | XMS_ITS | Clinical Summary ---
Author Organization [facility] Address [address] [place] [address] Care Team Providers Care Husbandry Technician Name Role Phone Unavailable Primary Care [...]
--- OUTSIDE RECORDS SUMMARY | 2024-07-16 15:08 | XMS_ITS ---
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 Generated for Printi ng/Faxing/eTransmitting on:?07/16/2024 03:07 PM EDT
--- OUTSIDE RECORDS SUMMARY | 2024-07-16 15:08 | XMS_ITS ---
Author Organization 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) Plantar fasciitis, bilateral (M72.2) Active confirmed Problem Mononeuropathy of lower limb (838388097) Neuritis of right foot (G57.91) Active confirmed Problem [id number] Neuritis of left foot (G57.92) Active confirmed Vital Signs Height 6 ft in 07/09/2024 Weight 228 lbs 07/09/2024 BMI 30.92 kg/m2 07/09/2024 Blood pressure systolic 130 mm Hg 07/10/19 25 Blood pressure diastolic 70 mm Hg 025 Encounters Encounter Location Date Provider Diagnosis [facility] [address] 07/09/2024 Talisha Black Pain in right foot [...] * Naseem MEHTA RDOB:[birth year] (28 yo M)Acc No.[id number]:07/09/2024 Progress Notes Patient:?Naseem MEHTA R Provider:?Talisha Lau DPM :1995???Age:28 Y???Sex:Male Juan Jose e:07/09/2024 Address:[address] [place], [place] [id number] Pcp:Emma Molina Subjective: * Chief Complaints: * [...] Surgical History * Hospitalization/Major Diagno stic Procedure:?[facility] 03/30 * Family History:?Mother: doroteo lopez.?Father: alive.? [...] LAT, LO, [place] , B/L??Taken by trained?Podiatric Planogrammer (?KL ),.?Findings:?normal bone and soft tissue density [...] Date - 07/09/2024)?See Examination above * Procedure Codes:?61056 X-RAY EXAM OF RIGHT FOOT 3V, Modifiers: 26 , OR12490 X- RAY EXAM OF LEFT FOOT 3V, [...] Interfil injection therapy, as well as surgical [place]/Endoscopic Fasciitomy surgical procedures if needed. Recommendations were [...] Lau DPM Date:?2024 Generated for Nenai ng/Faxing/eTransmitting on:?07/16/2024 03:08 PM EDT History and Physical Notes * HPI [...] MO , B/L Taken by trained Podiatric Planogrammer ( KL ) , Clinical Indication(s): Evaluate for Fra cture, Evaluate Biomechanical Deformity ,
--- OUTSIDE RECORDS SUMMARY | 2024-07-16 15:08 | XMS_ITS | Clinical Summary ---
Author Organization [facility] Address [address] [place] [address] Care Team Providers Care Allocation Analyst Name Role Phone Unavailable Primary Care Provider [...]
--- OUTSIDE RECORDS SUMMARY | 2024-07-16 15:09 | XMS_ITS | Clinical Summary ---
Author Organization [facility] Address [address] [place] [address] Care Team Providers Care Water Commissioner Name Role Phone Unknown Primary Care Provider [...] Department Care Team Description 05/02/2024 Transcribe Orders [facility] [place] [address] [facility] [place] [address] Sharon Miles MD Bilateral pulmonary [...] Office Visit [facility] [place] [address] [place] [phone] Forrest Campos MD [address] [place], [place] [phone] Health Maintenance Due Date Last Done Comments [...] Insurance ACTIVE DUTY ACTIVE DUTY Care Teams Water Commissioner Relationship Specialty Start Date End Date Unknown Unknow Provider Address PCP - General 01/10/23
== END 2024-07-16 14:35 | disposition home or self-care (01) ==
LOC: HO.HPSW 13:54
PROVIDERS: PCP Internal Medicine; Visit Provider Nurse Practitioner Family
DX: J45.909 Unspecified asthma, uncomplicated (principal); Z86.711 Personal history of pulmonary embolism; Z91.09 Other allergy status, other than to drugs and biological substances
CPT/HCPCS: 99214; G2211

== ENCOUNTER → 2024-07-16 13:53 | Outpatient (BNVA) | payer OTHER, SELFPAY | PROVIDERS: PCP Internal Medicine; Visit Provider Nurse Practitioner Family | DX: J45.909 Unspecified asthma, uncomplicated (principal); Z91.09 Other allergy status, other than to drugs and biological substances; Z86.711 Personal history of pulmonary embolism | CPT/HCPCS: 99212 ==

== ENCOUNTER 2024-07-16 14:41 | Outpatient (REF) | payer OTHER, SELFPAY ==
--- OUTSIDE RECORDS SUMMARY | 2024-07-16 15:49 | XMS_ITS | Clinical Summary ---
Author Organization [facility] Address [address] [place] [address] Care Team Providers Care Retail Cashier Name Role Phone Unknown Primary Care Provider [...] Department Care Team Description 05/02/2024 Transcribe Orders [facility] [place] [address] [facility] [address] [place] [address] Sharon Miles MD Bilateral pulmonary [...] Visit [facility] [place] [address] [place] [address] [phone] Forrest Campos MD [address] [place], [place] [phone] Health Maintenance Due Date Last Done Comments [...] Insurance ACTIVE DUTY ACTIVE DUTY Care Teams Retail Cashier Relationship Specialty Start Date End Date Unknown Unknow Provider Address PCP - General 01/10/23
--- OUTSIDE RECORDS SUMMARY | 2024-07-16 15:49 | XMS_ITS | Continuity of Care Document ---
Author Name [facility] Organization [facility] Care Team Providers Care Insurance Adjuster Name Role Phone [facility] Unavailable Unavailable Problems Combined list of problems [...] ORAL, MALLINKRT PHARM, 100 ea. BOTTLE Active [id number] 2023 60 Pharmac y Data Transac tion Service Facilit y CLOMID (clomiphene citrate), 50 MG, TABLET, ORAL, FANTA PHARMAC, 30 ea. BLIST PACK Cancele d [id number] : 2023 0 Pharmac y Data Transac tion Service Facilit y CLOMID (clomiphene citrate), 50 MG, TABLET, ORAL, FANTA PHARMAC, 30 ea. BLIST PACK Active [id number] 4 2023 14 Pharmac y Data Transac tion Service Facilit y CLOMID (clomiphene citrate), 50 MG, TABLET, ORAL, FANTA PHARMAC, 30 ea. BLIST PACK Active [id number] 4 2023 14 Pharmac y Data Transac tion Service Facilit y CLOMID (clomiphene citrate), 50 MG, TABLET, ORAL, FANTA PHARMAC, 30 ea. BLIST PACK Active [id number] 4 2023 14 Pharmac y Data Transac tion Service Facilit y CLOMID (clomiphene citrate), 50 MG, TABLET, ORAL, FANTA PHARMAC, 30 ea. BLIST PACK Active [id number] 4 2023 14 Pharmac y Data Transac tion Service Facilit y DEX/AMPHET (ADDERALL XR EQ) 15 MG CP24 Take or use exactly as directed .May impair driving. This prescrip tion cannot be refilled .Federal law prohibit s transfer of prescrip tion. 02/18/2024 [id number] 4 [address] [place] [address] DEX/AMPHET (ADDERALL XR EQ) 15 MG CP24 Take or use exactly as directed .May impair driving. This prescrip tion cannot be refilled .Federal law prohibit s transfer of prescrip tion. 12/13/2023 [id number] [address] [place] [address] Dextroamphe tamine Saccharate, Amphetamine Aspartate, Dextroamphe tamine Sulfate and Amphetamine Sulfate ([employer] s[employer] 100 TABLET in 1 BOTTLE Active [id number] 06/14/19 2 4 2023 60 Pharmac y Data Transac tion Service Facilit y DULOXETINE HCL (duloxetine HCl), 20 MG, CAPSULE DR, ORAL, AJANTA PHARMA L, 60 ea. BOTTLE Active [id number] 2023 30 Pharmac y Data Transac tion Service Facilit y DULOXETINE HCL (duloxetine HCl), 20 MG, CAPSULE DR, ORAL, AJANTA PHARMA L, 60 ea. BOTTLE Active [id number] 4 2023 30 Pharmac y Data Transac tion Service Facilit y DULOXETINE HCL (duloxetine HCl), 20 MG, CAPSULE DR, ORAL, AJANTA PHARMA L, 60 ea. BOTTLE Active [id number] 2023 30 Pharmac y Data Transac tion Service Facilit y Meloxicam (Meloxicam) , 15mg, Tablet, Oral, [facility], 1000 Ea. Bottle Cancele d [id number] : 2023 0 Pharmac y Data Transac tion Service Facilit y METHOCARBAM OL (methocarba mol), 750 MG, TABLET, ORAL, GRANULES PHARMA, 100 ea. BOTTLE Active [id number] 2023 42 Pharmac y Data Transac tion Service Facilit y MIRTAZAPINE (MIRTAZAPIN E), 30MG, TABLET, ORAL, CARACO PHARM, 30 ea. BOTTLE Cancele d [id number] : 2023 0 Pharmac y Data Transac tion Service Facilit y ONDANSETRON ODT (ONDANSETRO N), 8 MG, TAB RAPDIS, ORAL, AUROBINDO PHARM, 30 ea. BLIST PACK Active [id number] 2023 30 Pharmac y Data Transac tion Service Facilit y TRAZODONE HCL (trazodone HCl), 50 MG, TABLET, ORAL, TEVA [place], 100 ea. BOTTLE Cancele d [id number] : 2023 0 Pharmac y Data Transac tion Service Facilit y TRAZODONE HCL (trazodone HCl), 50 MG, TABLET, ORAL, TEVA [place], 100 ea. BOTTLE Active [id number] 2023 30 Pharmac y Data Transac tion Service Facilit y TRAZODONE HCL (trazodone HCl), 50 MG, TABLET, ORAL, TEVA [place], 100 ea. BOTTLE Active [id number] 2023 60 Pharmac y Data Transac tion Service Facilit y TRAZODONE HCL (trazodone HCl), 50 MG, TABLET, ORAL, TEVA [place], 100 ea. BOTTLE Active [id number] 4 2023 30 Pharmac y Data Transac [...] Site Reaction Lot Number CVX Code Drug Parts Cataloger Status Comments Source Influenza, injectable, quadrivalent, preservative free 0 2021 [id number] Bod[employer] ([facility]) complet ed Influenza , injectabl e, quadrival ent, preservat maritza free DoD typhoid Vi capsular polysaccharid e vaccine 2 2021 [id number] Sanofi Pasteur ([facility]) complet ed typhoid Vi capsular polysacch aride vaccine DoD meningococcal polysaccharid e (groups A, C, Y and W-135) diphtheria toxoid conjugate vaccine (MCV4P) 2 2021 [id number] Sanofi Pasteur ([facility]) complet ed meningoco ccal polysacch aride (groups A, C, Y and W-135) diphtheri a toxoid conjugate vaccine (MCV4P) DoD Human Papillomaviru s 9-valent vaccine 2 2021 [id number] 165 GoAlbert (MSD) complet ed Human Papilloma virus 9-valent vaccine DoD SARS-COV-2 (COVID-19) vaccine, mRNA, spike protein, LNP, preservative free, 100 mcg or 50 mcg dose 3 2021 [id number] 207 Hipcamp. (MOD) complet ed SARS-COV- 2 (COVID-19 ) vaccine, mRNA, spike protein, LNP, preservat maritza free, 100 mcg or 50 mcg dose DoD Influenza, injectable, quadrivalent, preservative free 7 2020 [id number] 150 BodBot (SK) complet ed Influenza , injectabl e, quadrival ent, preservat maritza free DoD SARS-COV-2 (COVID-19) vaccine, mRNA, spike protein, LNP, preservative free, 100 mcg or 50 mcg dose 2 2020 [id number] 207 [employer]camp. (MOD) complet ed SARS-COV- 2 (COVID-19 ) vaccine, mRNA, spike protein, LNP, preservat maritza free, 100 mcg or 50 mcg dose DoD SARS-COV-2 (COVID-19) vaccine, mRNA, spike protein, LNP, preservative free, 100 mcg or 50 mcg dose 1 2020 [id number] 207 MYOS, qcue. (MOD) complet ed SARS-COV- 2 (COVID-19 ) vaccine, mRNA, spike protein, LNP, preservat maritza free, 100 mcg or 50 mcg dose DoD Influenza, injectable, quadrivalent, preservative free 0 2019 [id number] 150 Seqirus (SEQ) complet ed Influenza , injectabl e, quadrival ent, preservat maritza free DoD typhoid Vi capsular polysaccharid e vaccine 1 2018 [id number] 101 Sanofi Pasteur ([facility]) complet ed typhoid Vi capsular polysacch aride vaccine DoD Human Papillomaviru s 9-valent vaccine 1 2018 [id number] 165 Merck (MSD) complet ed Human Papilloma virus 9-valent vaccine DoD Influenza, injectable, quadrivalent, preservative free 0 2018 [id number] 150 Seqirus (SEQ) complet ed Influenza , injectabl e, quadrival ent, preservat maritza free DoD Influenza, injectable, quadrivalent, preservative free 0 2017 [id number] 150 Seqirus (SEQ) comple t ed Influenza , injectabl e, quadrival ent, preservat maritza free DoD [place] Encephalitis vaccine for intramuscular administratio n 3 2017 [id number] 134 Valneva ([place]) complet ed [place] Encephali tis vaccine for intramusc ular administr ation DoD influenza, injectable, quadrivalent, contains preservative 3 2016 [id number] 158 [facility] (B) complet ed influenza , injectabl e, quadrival ent, contains preservat maritza DoD [place] Encephalitis vaccine for intramuscular administratio n 2 2016 [id number] 134 Valneva ([place]) complet ed [place] Encephali tis vaccine for intramusc ular administr ation DoD hepatitis A and hepatitis B vaccine 3 2015 [id number] 104 [facility] (SKB) complet ed hepatitis A and hepatitis B vaccine DoD [place] Encephalitis vaccine for intramuscular administratio n 1 2015 [id number] 134 [employer] (INT) complet ed [place] Encephali tis vaccine for intramusc ular administr ation DoD Influenza, seasonal, injectable, preservative free 0 2015 [id number] 140 Seqirus (SEQ) comple t ed Influenza , seasonal, injectabl e, preservat maritza free DoD measles, mumps and rubella virus vaccine 2 2015 [id number] 03 Merck (MSD) complet ed measles, mumps and rubella virus vaccine DoD hepatitis A and hepatitis B vaccine 1 2015 [id number] 104 SmithKline (SKB) complet ed hepatitis A and hepatitis B vaccine DoD measles, mumps and rubella virus vaccine 1 2015 [id number] 03 Merck (MSD) complet ed measles, mumps [...] diphtheria toxoid conjugate vaccine (MCV4P) 1 2015 [id number] 114 Sanofi Pasteur (PMC) complet ed meningoco [...] and type 7, live, oral 1 2015 [id number] 143 [employer] (BRR) complet ed Adenoviru s, type 4 and type 7, live, oral [facility] influenza, injectable, quadrivalent, contains preservative 1 [...] ADM Date DC Date Status Disposition [place] [address](Mitch matology Surgery, [facility]) OUTPATIENT [id number] NEYR Smalls 06/29 Released w/o Limitations [facility] [place] [address](D ermatol ogy Surgery , [facility]) [place] [address]([facility]) OUTPATIENT [id number] Notes Entered by: LAURA WALKER 01 Jul 2015 1019 ------- ------- ------- ------- -- Strep Prophyl axis JACQUELINE WALKER 06/30 Released w/o Limitations [facility] [place] [address]([facility] d) [place] [address](Hea ring Conservat ion, BMT) OUTPATIENT [id number] FLIP KWAN 07/02 Released w/o Limitations [facility] [place] [address](H earing Conserv ation, BMT) [place] [address](ATR 323 TRS,BMT) OUTPATIENT [id number] Notes Entered by: MARKY HASSAN 09 Jul 2015 1339 ------- ------- ------- ------- -- luke al lower leg pain MIGUEL PETERSON 07/08 Released with Work/Duty Limitations [facility] [place] [address](A TR 323 TRS,BMT ) [place] [address](ATR 323 TRS,BMT) OUTPATIENT [id number] Notes Entered by: MARKY HASSAN 10 Jul 2015 1020 ------- ------- ------- ------- -- TALHA SIMON PT 07/09 Released with Work/Duty Limitations [facility] [place] [address](A TR 323 TRS,BMT ) [place] [place] [address](MAS Alpha) OUTPATIENT [id number] Notes Entered by: Casey WELCH 11 Aug 2015 1212 ------- ------- ------- ------- -- cold pack SUNDEEP WELCH 08/10 Released w/o Limitations [facility] [place] [address](M Alpha) [place]) OUTPATIENT [id number] PFB ASHU DEE 08/31 Released with Work/Duty Limitations [place]) [place]) OUTPATIENT [id number] PFB ASHU DEE 09/30 Released w/o Limitations [place]) [place]) OUTPATIENT [id number] POSSIBL E TENNILLE SALVADOR 10/05 Released w/o Limitations [place] [place] Occupatio nal Health) OUTPATIENT [id number] [facility] 10/26 Released w/o Limitations [place] Occupat ional Health) [place] Hearing Conservat ion) OUTPATIENT [id number] audio +sts right WINTER WIN C 10/26 Released w/o Limitations [place] Hearing Conserv ation) [place] Hearing Conservat ion) OUTPATIENT [id number] audio WINTER WIN C 10/27 Released w/o Limitations [place] Hearing Conserv ation) [place] Readiness Center) OUTPATIENT [id number] OSS/JAP AN MART CAO 11/10 Released w/o Limitations [place]) [place]) OUTPATIENT [id number] f/u Bilater al Foot Pain TENNILLE CASSIDY 11/11 Released with Work/Duty Limitations [place]) [place]) OUTPATIENT [id number] PFB LUIZ ASHU BAILEY 11/30 Released w/o Limitations [place]) Formerly [facility](K a Medical In-Out Processin g) TELE CONSULT [id number] Notes Entered by: AHSU ACUÑA 03 Feb 2016 1205 ------- ------- ------- ------- -- Medical Inproce ssing ASHU ACUÑA 02/02 Other Not Elsewhere Classified Formerly [facility] ( Medical In-Out Process ing) Formerly [facility]) OUTPATIENT [id number] initial shaivin dwayne ho and plantar fasciti s EGGE FERNANDEZ 02/07 Released w/o Limitations Formerly [facility] ([facility]) Formerly [facility](P odiatry Clinic) OUTPATIENT [id number] Plantar fascial fibroma PAT Guevara 03/23 Released w/o Limitations Formerly [facility] (Podiat ry Clinic) Formerly [facility]) OUTPATIENT [id number] neck and back px7/10 alexander t x3mo SID JOHNSON 03/24 Released w/o Limitations Formerly [facility] ([facility] BGAB) Formerly [facility]) TELE CONSULT [id number] Notes Entered by: DAYLIN CERVANTES 25 Mar 2016 1037 ------- ------- ------- ------- -- RAD results SANTINO MULLER 03/25 Formerly [facility] ([facility] BG) Formerly [facility]( a [facility]) OUTPATIENT [id number] stress managem ent/ref erral from [facility] JASON GUERRA 03/28 Released w/o Limitations Formerly [facility] ([facility]) Formerly [facility]) OUTPATIENT [id number] RAD results f/u SID JOHNSON 03/30 Released w/o Limitations Formerly [facility] ([facility]) Formerly [facility]) TELE CONSULT [id number] Notes Entered by: GAGE MURCIA 05 Apr 2016 1323 ------- ------- ------- ------- -- PHAQ PRIORIT Y SANTINO DEVRIES 04/05 Formerly [facility] ([facility]) Formerly [facility] Optometry Clinic) OUTPATIENT [id number] routine /IMR TOBIN FRAGA 04/07 Released w/o Limitations Formerly [facility] ( Optomet ry Clinic) Formerly [facility]) OUTPATIENT [id number] f/u JASON GUERRA 04/11 Released w/o Limitations Formerly [facility] ([facility]) Formerly [facility] Hearing Conservat [facility]) OUTPATIENT [id number] Notes Entered by: WOLFGANG FERNANDEZ 15 Apr 2016 1412 ------- ------- ------- ------- -- AUDIOGR AM RAGHAV ORTIZ 04/15 Released w/o Limitations Formerly [facility] ( Hearing Conserv ation) Formerly [facility] Physical Therapy Clinic) OUTPATIENT [id number] radha Velazquez TYLER B 04/18 Released with Work/Duty Limitations Formerly [facility] ( Physica l Therapy Clinic) Formerly [facility]) TELE CONSULT [id number] Notes Entered by: BANDAR VEGA 18 Apr 2016 1401 ------- ------- ------- ------- -- [facility] RANDALL CRESPO 04/18 Formerly [facility] ([facility]) Formerly [facility]) OUTPATIENT [id number] madelinito RANDALL Dowell 04/19 Released w/o Limitations Formerly [facility] ([facility]) Formerly [facility]) OUTPATIENT [id number] Notes Entered by: DENISSE HERNANDEZ 05 May 2016 1300 ------- ------- ------- ------- -- MARKUS Gonzalez 05/05 Released w/o Limitations Formerly [facility] ([facility]) Formerly [facility] Physical Therapy Clinic) OUTPATIENT [id number] THI NESS 05/11 Released w/o Limitations Formerly [facility] ( Physica l Therapy Clinic) Formerly [facility]) OUTPATIENT [id number] GARRY MILLER 05/12 Released w/o Limitations Formerly [facility] ([facility]) Formerly [facility] Physical Therapy Clinic) OUTPATIENT [id number] THI NESS 05/16 Released w/o Limitations Formerly [facility] ( Physica l Therapy Clinic) Formerly [facility]) TELE CONSULT [id number] Notes Entered by: Cheryl GAO 20 May 2016 0732 ------- ------- ------- ------- -- vomit, cold sweats, has had little waterxl ess then 12 hours SANTINO MULLER 05/19 [place] [facility] [place] [facility]) OUTPATIENT [id number] throwin g up SANTINO MULLER 05/20 Released w/o Limitations Formerly [facility] ([facility]) Formerly [facility] Physical Therapy Clinic) OUTPATIENT [id number] THI NESS 05/22 Released w/o Limitations Formerly [facility] ( Physica l Therapy Clinic) Formerly [facility]) OUTPATIENT [id number] Tidd resched ule/rebeca ulder px 08/13/ hand px 08/13 x almost 1 yr SANTINO MULLER 05/25 Released w/o Limitations Formerly [facility] ([facility]) Formerly [facility] Physical Therapy Clinic) OUTPATIENT [id number] THI NESS 05/29 Released w/o Limitations Formerly [facility] ( Physic l Therapy [facility]) Formerly [facility]) OUTPATIENT [id number] Notes Entered by: GUALBERTO HUBER 30 May 2016 0833 ------- ------- ------- ------- -- [facility] CARINA ALEX 05/29 Released w/o Limitations Formerly [facility] ([facility]) Formerly [facility] Physical Therapy Clinic) OUTPATIENT [id number] BILLY DON 06/01 Released w/o Limitations [facility] Formerly [facility]) TELE CONSULT [id number] Notes Entered by: Alfonso SHANE 28 Jul 2016 1043 ------- ------- ------- ------- -- STD Ivis lopez ([facility] omatic) KAYLIE EVANS 07/28 Referred for Appointment Formerly [facility] ([facility]) Formerly [facility]) OUTPATIENT [id number] Notes Entered by: DENISSE HERNANDEZ 28 Jul 2016 1334 ------- ------- ------- ------- -- LIZ Watson 07/28 Released w/o Limitations Formerly [facility] ([facility]) Formerly [facility]) TELE CONSULT [id number] SANTINO MULLER 08/05 Formerly [facility] ([facility]) Formerly [facility]) OUTPATIENT [id number] f/u SID Carson 08/08 Released with Work/Duty Limitations Formerly [facility] ([facility]) Formerly [facility]) OUTPATIENT [id number] ER f/u for Edema BASSEM JOHNSONBRONWYN [facility] 09/12 Released w/o Limitations Formerly [facility] ([facility]) Formerly [facility]) TELE CONSULT [id number] Notes Entered by: Joe WILSON 03 Oct 2016 0909 ------- ------- ------- ------- -- rash on chest,r ed, barbi(l ook like acne) x2days SANTINO MULLER 10/03 Formerly [facility] ([facility]) Formerly [facility]) TELE CONSULT [id number] Notes Entered by: NICOLAS HOOK 11 Oct 2016 0817 ------- ------- ------- ------- -- Early STI F/U JUD CURRY 10/10 Formerly [facility] ([facility]) Formerly [facility]) TELE CONSULT [id number] Notes Entered by: ELIZABETH SID [facility] 26 Oct 2016 0847 ------- ------- ------- ------- -- F/u apt for MRI review REEBL GONZALEZ 10/25 Referred for Appointment Formerly [facility] ([facility]) Formerly [facility]) OUTPATIENT [id number] MRI review ELIZABETHBASSEM COELLOBRONWYN [facility] 11/04 Released with Work/Duty Limitations Formerly [facility] ([facility]) Formerly [facility]) OUTPATIENT [id number] Notes Entered by: Emma BURNETT TTE 10 Nov 2016 1328 ------- ------- ------- ------- -- Doreen LEHMANEDES, KAMLESH A 11/10 Released w/o Limitations Formerly [facility] ([facility]) Formerly [facility] A Team) OUTPATIENT [id number] rash on back, red, raised, no improve ment over past 2wks DEAN GALLAGHER Ramona 12/19 Released w/o Limitations Formerly [facility] ([facility] A Team) Formerly [facility]) OUTPATIENT [id number] Ref to chiropr BRADLY Prater 01/31 Released w/o Limitations Formerly [facility] ([facility]) Formerly [facility]) TELE CONSULT [id number] Notes Entered by: Joe WILSON 09 Mar 2017 1506 ------- ------- ------- ------- -- Profile ADEWUSI, MARIALUISA MEADEOLADE 03/09 Other Not Elsewhere Classified Formerly [facility] ([facility]) Formerly [facility]) TELE CONSULT [id number] Notes Entered by: Joe WILSON 23 Mar 2017 1315 ------- ------- ------- ------- -- SYMP- sore throat, headach es,body px,chil ls,DARINEL Lynn 03/23 Advice Assessment Formerly [facility] ([facility]) Formerly [facility](K a Hearing Conservat ion) OUTPATIENT [id number] Notes Entered by: TAMIKO WILSON 27 Mar 2017 1111 ------- ------- ------- ------- -- AUDIOGR AM TAMIKO WILSON 03/27 Released w/o Limitations Formerly [facility] ( Hearing Conserv ation) Formerly [facility](K a Hearing Conservat ion) TELE CONSULT [id number] Notes Entered by: TAMIKO WILSON 27 Mar 2017 1112 ------- ------- ------- ------- -- OHA LABS TAMIKO WILSON 03/27 Referred for Appointment Formerly [facility] ( Hearing [facility]) Formerly [facility]) TELE CONSULT [id number] Notes Entered by: JR ORTIZ 27 Mar 2017 1119 ------- ------- ------- ------- -- STI - Confide nce Check JUD CURRY 03/27 Other Not Elsewhere Classified Formerly [facility] ([facility]) Formerly [facility]) OUTPATIENT [id number] Notes Entered by: Emma BURNETT 27 Mar 2017 1208 ------- ------- ------- ------- -- Sent by [facility] BRADLY FRENCH 03/27 Released w/o Limitations Formerly [facility] ([facility]) Formerly [facility] Physical Therapy Clinic) OUTPATIENT [id number] Sciatic a, right side BILLY DON 03/28 Released with Work/Duty Limitations Formerly [facility] ( Physica l Therapy Clinic) Formerly [facility] Hearing Conservat [facility]) OUTPATIENT [id number] Notes Entered by: Regina ORTEGA 11 Apr 2017 1558 ------- ------- ------- ------- -- Audiogr am BHAVNA ORTEGA 04/11 Released w/o Limitations [facility]ly [facility] ( [facility] Formerly [facility]( [facility]) OUTPATIENT [id number] f/u hearing non flyer RICKY GEE 04/14 Released w/o Limitations Formerly [facility] ( Aerospa ce Medicin e Clinic) Formerly [facility]( a Physical Therapy Clinic) OUTPATIENT [id number] JOCELINE CERVANTES 05/14 Released w/o Limitations Formerly [facility] ( Physica l Therapy Clinic) Formerly [facility] Chiroprac tic Clinic) OUTPATIENT [id number] Lumbago with sciatic a, right side RIAN SIMMS L 05/16 Released w/o Limitations Formerly [facility] ([facility] Chiropr actic Clinic) Formerly [facility]( udiology Clinic) OUTPATIENT [id number] Unspeci fied hearing loss, left ear JOCELINE AKERS 05/17 Released w/o Limitations Formerly [facility] (Audiol ogy Clinic) Formerly [facility] Physical Therapy Clinic) OUTPATIENT [id number] JOCELINE CERVANTES 05/21 Released w/o Limitations Formerly [facility] ( Physica l Therapy Clinic) Formerly [facility]) OUTPATIENT [id number] Notes Entered by: Joe WILSON 22 May 2017 1138 ------- ------- ------- ------- -- *cough, loss appetit e,sweat s,chill s*[phone] or [phone]* BRADLY FRENCH 05/22 Released w/o Limitations Formerly [facility] ([facility] BG) Formerly [facility] Physical Therapy Clinic) OUTPATIENT [id number] JOCELINE CERVANTES 05/28 Released w/o Limitations Formerly [facility] ( Physica l Therapy Clinic) Formerly [facility]) OUTPATIENT [id number] OHA SAHIL BROTHERS 05/31 Released w/o Limitations Formerly [facility] ([facility]) Formerly [facility] Chiroprac tic Clinic) OUTPATIENT [id number] RIAN SIMMS 06/01 Released w/o Limitations Formerly [facility] ([facility] Chiropr actic Clinic) Formerly [facility]) OUTPATIENT [id number] OHA f/u RANDALL CRESPO 06/05 Released w/o Limitations Formerly [facility] ([facility]) Formerly [facility] Chiroprac tic Clinic) OUTPATIENT [id number] RIAN SIMMS 06/13 Released w/o Limitations Formerly [facility] ([facility] Chiropr actic Clinic) Formerly [facility]) OUTPATIENT [id number] Notes Entered by: LUI SCHWARZ 16 Jun 2017 1433 ------- ------- ------- ------- -- Annual A-P JIN SCHWARZ 06/16 Released w/o Limitations Formerly [facility] ([facility]) Formerly [facility]) OUTPATIENT [id number] Notes Entered by: GUALBERTO HUBER 19 Jun 2017 0845 ------- ------- ------- ------- -- TRI SERVICE PHA / *LTB BRADLY FRENCH 06/18 Released w/o Limitations Formerly [facility] ([facility]) Formerly [facility] Chiroprac tic Clinic) OUTPATIENT [id number] RIAN SIMMS 07/12 Released w/o Limitations Formerly [facility] ([facility] Chiropr actic Clinic) Formerly [facility]) OUTPATIENT [id number] back pain and foot pain BRADLY FRENCH 08/02 Released w/o Limitations Formerly [facility] ([facility]) Formerly [facility] OUTPATIENT [id number] RIAN SIMMS 08/15 Released w/o Limitations Formerly [facility] ([facility] Chiropr actic Clinic) Formerly [facility] OUTPATIENT [id number] RIAN SIMMS 08/31 Released w/o Limitations Formerly [facility] ([facility] actic Clinic) Formerly [facility] A Team) OUTPATIENT [id number] Notes Entered by: mEma BURNETT 10 Jan 2018 0725 ------- ------- ------- ------- -- JUNIOR [place] 01/09 Released with Work/Duty Limitations Formerly [facility] ([facility] A Team) Formerly [facility] D Team) TELE CONSULT [id number] Notes Entered by: RA URBAN PERKINS 10 Jan 2018 0816 ------- ------- ------- ------- -- Confide GERARDO Andrews 01/09 Other Not Elsewhere Classified [place] D Team) [place] BG[facility]) OUTPATIENT [id number] injured my back (again) was told to make an appoint ment by kush shearer KEREN WALDEN 02/02 Released with Work/Duty Limitations [place] ([facility] BGAB) [place] TELE CONSULT [id number] Notes Entered by: BRIE MIN 23 Feb 2018 1355 ------- ------- ------- ------- -- PRO:Ext ladny/ [phone]/ JOCELINE VELASQUEZ 02/23 Other Not Elsewhere Classified [place] ([facility] BGAB) [place](P hysical Therapy Clinic) OUTPATIENT [id number] Low back pain ERICK BRENNAN 03/08 Released w/o Limitations [place] (Physic [facility] Therapy [facility]) [place]P hysical Therapy Clinic) OUTPATIENT [id number] 1 of 4 CATALINA MCDERMOTT 03/16 Released with Work/Duty Limitations [place] ([facility]) [place] Chiroprac tic Clinic) OUTPATIENT [id number] RIAN SIMMS 03/19 Released w/o Limitations [place] ([facility] Chiropr actic Clinic) [place]K a [facility] BGAB) TELE CONSULT [id number] Notes Entered by: ARELY SAUNDERS 28 Mar 2018 1224 ------- ------- ------- ------- -- pro;ana laura evans,/[phone] [id number] 5JOCELINE Tsang 03/28 Other Not Elsewhere Classified [place] BGAB) [place](P hysical Therapy Clinic[place] OUTPATIENT [id number] 2/ AMELIA IMELDANEREIDA CASTRO 03/30 Released with Work/Duty Limitations Formerly [facility] (Physic al Therapy Clinic) Formerly [facility]) OUTPATIENT [id number] skin issue, acne, initial appt GILLIAN BRADLY Esqueda 04/02 Released w/o Limitations Formerly [facility] ([facility]) Formerly [facility]) TELE CONSULT [id number] Notes Entered by: JARRETT CALIX 06 Apr 2018 1526 ------- ------- ------- ------- -- OH Labs DREAD CALIX 04/06 Referred for Appointment Formerly [facility] ([facility]) Formerly [facility](P hysical Therapy Clinic) OUTPATIENT [id number] 4/ ASUNCION POST 04/11 Released w/o Limitations Formerly [facility] (Physic al Therapy Clinic) Formerly [facility]( a Hearing Conservat ion) OUTPATIENT [id number] Notes Entered by: JARRETT CALIX 13 Apr 2018 0822 ------- ------- ------- ------- -- Audiogr am DREAD CALIX 04/12 Released w/o Limitations Formerly [facility] ( Hearing Conserv ation) Formerly [facility](P hysical Therapy Clinic) OUTPATIENT [id number] 4/ CATALINA MCDERMOTT 04/20 Released with Work/Duty Limitations Formerly [facility] (Physic al Therapy Clinic) Formerly [facility](P hysical Therapy Clinic) OUTPATIENT [id number] LBP F/u ERICK BRENNAN 05/01 Released w/o Limitations Formerly [facility] (Physic al Therapy Clinic) Formerly [facility](K a Physical Therapy Clinic) OUTPATIENT [id number] 5 1/ MATTHEW LLAMAS 05/09 Released w/o Limitations Formerly [facility] ( Physica l Therapy Clinic) Formerly [facility]) OUTPATIENT [id number] SAHIL BLANCO 05/10 Released w/o Limitations [place]) [place] Chiroprac tic Clinic) OUTPATIENT [id number] RIAN SIMMS 06/01 Released w/o Limitations [place] ([facility] Chiropr actic Clinic) [place]K [facility]) OUTPATIENT [id number] Notes Entered by: PETR THAPA 12 Jun 2018 1426 ------- ------- ------- ------- -- TRI SERVICE PHA/ASHU PRICE 06/12 Released w/o Limitations [place]) [place]( [facility]) OUTPATIENT [id number] ERICK BRENNAN 06/27 [place]/o Limitations [place] [facility] [place] Physical [facility]) OUTPATIENT [id number] MATTHEW Raya 06/27 Released w/o Limitations [place] [place] Physical Therapy [facility]) OUTPATIENT [id number] MATTHEW Raya 07/08 Released w/o Limitations [place] [facility] Physical [facility]) OUTPATIENT [id number] f/u LBP ERICK BRENNAN 07/11 Released w/o Limitations [place] ([facility]) [place]([facility] D Team) OUTPATIENT [id number] Bilat foot pain x2 weeks JOSE CARTY 08/21 Released w/o Limitations [place] ([facility] D [facility]) [place](P odiatry Clinic) OUTPATIENT [id number] Plantar fascial fibroma GURJIT Jasso 09/19 Released w/o Limitations [place] (Podiat ry [place]) [place] [facility] BG[facility]) OUTPATIENT [id number] concent ration issues CLAYTON WESTBROOK 10/08 Released w/o Limitations Formerly [facility] ([facility] BGAB) Formerly [facility](P odiatry Clinic) OUTPATIENT [id number] F/U L toenail removal GURJIT HARVEY 10/08 Released w/o Limitations Formerly [facility] (Podiat ry Clinic) Formerly [facility] A Team) OUTPATIENT [id number] Medicat ion inquire s per VIRGIL Romano 10/22 Released w/o Limitations Formerly [facility] ([facility] A Team) Formerly [facility]) TELE CONSULT [id number] Notes Entered by: NAHEED ADAME 08 Nov 2018 1313 ------- ------- ------- ------- -- MED CONSULT ATION /O CANDELARIO SANTIAGO 11/08 Released to Self Care Formerly [facility] ([facility]) Formerly [facility] A Team) OUTPATIENT [id number] MEDICAT ION EVAN GARRISON 11/13 Released w/o Limitations Formerly [facility] ([facility] A Team) Formerly [facility]) OUTPATIENT [id number] injured lower back LINDSAY CRESPO W 01/15 Released w/o Limitations Formerly [facility] ([facility]) Formerly [facility] D Team) OUTPATIENT [id number] Notes Entered by: CAROLINA OSWALD 23 Jan 2019 0702 ------- ------- ------- ------- -- YEYO HUITRON 01/22 Released with Work/Duty Limitations Formerly [facility] ([facility] D Team) Formerly [facility]) OUTPATIENT [id number] Notes Entered by: ANDREAS RASCON 23 Jan 2019 0812 ------- ------- ------- ------- -- Travel Med Indones BERENICE Rizo 01/22 Released w/o Limitations Formerly [facility] ([facility]) Formerly [facility]) OUTPATIENT [id number] Notes Entered by: ANDREAS RASCON 30 Jan 2019 1317 ------- ------- ------- ------- -- Travel Med KAYLIE Young 01/30 Released w/o Limitations Formerly [facility] ([facility]) Formerly [facility]) OUTPATIENT [id number] Pain in Joshi areas RENNY DIANA 02/12 Released w/o Limitations Formerly [facility] ([facility]) Formerly [facility] D Team) TELE CONSULT [id number] Notes Entered by: MARK CURIEL 08 Mar 2019 0938 ------- ------- ------- ------- -- SYM/ MONKEY BITE AND COLD SYMPTOM S/+1 [phone] LIBORIO SIMMONS 03/08 Referred- Emergency Department Formerly [facility] ([facility] D Team) Formerly [facility]( a Hearing Conservat ion) OUTPATIENT [id number] Audiogr am 465B PASTOR AGUILAR 04/25 Released w/o Limitations Formerly [facility] ( [facility] Formerly [facility]( a Hearing Conservat ion) OUTPATIENT [id number] Audiogr am follow up ED LOPEZ 05/19 Released w/o Limitations Formerly [facility] ( Hearing Conserv [facility]) Formerly [facility] D Team) TELE CONSULT [id number] Notes Entered by: ARTHUR HSU 31 May 2019 1603 ------- ------- ------- ------- -- SYM: FEVER, BODY ACHES/( [phone] 5/DARINEL LEROY 05/30 Advice Assessment Formerly [facility] ([facility] D Team) Formerly [facility] Team 1) OUTPATIENT [id number] fever x5 day runny nose KELECHI PRADO 06/06 [place]ased w/o Limitations [place] [facility]) Formerly [facility](P hysical Therapy Clinic) TELE CONSULT [id number] Notes Entered by: YAZAN WALLACE 08 Jun 2019 0931 ------- ------- ------- ------- -- PUI check in RIKY WALLACE 06/07 [place]Phys[facility] [place] [facility]) Formerly [facility]) OUTPATIENT [id number] A ULICES CHAO 06/23 Released w/o Limitations Formerly [facility] ([facility]) Formerly [facility] D Team) TELE CONSULT [id number] Notes Entered by: MARK CURIEL 25 Jul 2019 0918 ------- ------- ------- ------- -- f/u for pneumon ia/ /SHYANNE Galicia 07/24 Other Not Elsewhere Classified Formerly [facility] ([facility] D Team) Formerly [facility]) OUTPATIENT [id number] Notes Entered by: KWAME GUILLEN 09 Aug 2019 0919 ------- ------- ------- ------- -- TRI SERVICE PHA/RENNY HEARD 08/08 Released w/o Limitations Formerly [facility] ([facility]) Formerly [facility] D Team) OUTPATIENT [id number] ear pain, congest ion, and feveris h RENNY DIANA 08/18 Released w/o Limitations Formerly [facility] ([facility] D Team) Formerly [facility] D Team) OUTPATIENT [id number] PT NEED WAVIER FOR PCS, DISCUSS W/RENNY HALE 08/25 Released w/o Limitations Formerly [facility] ([facility] D Team) [facility] TELE CONSULT [id number] Notes Entered by: CRISTOFER CASSIDY [facility] 24 Oct 2019 0714 ------- ------- ------- ------- -- COVID CARE LINE KEREN CASSIDY [facility] 10/22 Referred for Appointment Formerly [facility] (Opsurg e2 COVID19 Hotline ) Formerly [facility]( a [facility] D Team) OUTPATIENT [id number] fatigue , nausea, diarrhe a, nasal dischar ge x2 days LINDSAY CRESPO W 10/23 Sick at Home/Quarter s Formerly [facility] ([facility] D Team) Formerly [facility] A Team) OUTPATIENT [id number] cough x5 days with chills and congest ion VINCE CORTES E 10/27 Sick at Home/Quarter s Formerly [facility] ([facility] A Team) Formerly [facility] D Team) TELE CONSULT [id number] Notes Entered by: CHERYL PATEL 30 Oct 2019 1330 ------- ------- ------- ------- -- SYM: AGGIE ISSUE/R MAGALI/ 634 0900/LIBORIO BUNCH 10/29 Other Not Elsewhere Classified Formerly [facility] ([facility] D Team) Formerly [facility] D Team) OUTPATIENT [id number] Notes Entered by: Dheeraj CASTILLO 18 Dec 2019 0715 ------- ------- ------- ------- -- [facility] 12/16 Released w/o Limitations Formerly [facility] ([facility] D Team) Formerly [facility]) OUTPATIENT [id number] Notes Entered by: JEREMIAH BOBO 24 Dec 2019 1216 ------- ------- ------- ------- -- ALEXIS aCmposei n ABS, UYEN Simeon 12/23 Released w/o Limitations [place] ([facility]) [facility] Wo Active Duty Team A) TELE CONSULT [id number] Notes Entered by: DEREK BANEGAS 15 May 2020 1223 ------- ------- ------- ------- -- STI testing CHRISTINE COHN Dwayne 05/15 [facility](RS Wo Active Duty Team A) [facility] Wo Active Duty Team A) OUTPATIENT [id number] Notes Entered by: Emma COHN 15 May 2020 1243 ------- ------- ------- ------- -- Walk is possibl e STI treatme nt RITA ANDREWS 05/15 Released w/o Limitations [facility](RS Wo Active Duty Team A) [facility] Active Duty Team A) OUTPATIENT [id number] neck px // [phone] RITA ANDREWS 05/18 Released w/o Limitations [facility] Wo Active Duty Team A) [facility] Wo Active Duty Team A) TELE CONSULT [id number] Notes Entered by: MICHELLE RAY I 20 May 2020 1042 ------- ------- ------- ------- -- initial dry ANGELIQUE Elkins 05/20 [facility] Wo Active Duty Team A) [facility] FP Behaviora l Hlt Opt) OUTPATIENT [id number] Anxiety /Depres FRED Antunez 05/27 Released w/o Limitations [facility] FP Behavio ral Hlt Opt) [facility](RS Wo Active Duty Team A) OUTPATIENT [id number] 2 !1300 TDN RITA ANDREWS S 05/30 Released w/o Limitations [facility] Wom Active Duty Team A) [facility](RS[facility] Hearing Conservat ion) OUTPATIENT [id number] ohe hearing MARTIN-LINDSAY CO, JAYNE 06/14 Released w/o Limitations [facility] Hearing Conserv ation) [facility](RSN Immunizat ion) OUTPATIENT [id number] COVID 19 VAX MODERNA 1 JESI GOOD 06/30 Released w/o Limitations [facility](RSN Immuniz ation) [facility] Nutrition Care) OUTPATIENT [id number] Cliff [email or web address] Ortega 07/15 Released w/o Limitations [facility](L Nutriti on Care) [facility] Wellness Center) OUTPATIENT [id number] BOD/MET LINDSAY RUVALCABA 07/23 Released w/o Limitations [facility] s [place]) [facility] Wellness Center) OUTPATIENT [id number] JAM ASKEW 07/24 Released w/o Limitations [facility] s [place]) [facility] Wo Active Duty Team A) TELE CONSULT [id number] Notes Entered by: RUPA CALDWELL 24 Jul 2020 1018 ------- ------- ------- ------- -- Morgan asher for sleep study REBEL COX 07/24 [facility] Wo Active Duty Team A) [facility](RSN Immunizat ion) OUTPATIENT [id number] COVID-1 9 VACC MODERNA DOSE 2 ENRIQUE RAMÍREZ 07/28 Released w/o Limitations [facility](RSN Immuniz ation) [facility] Wellness Center) OUTPATIENT [id number] [facility] JAM TITUS 08/26 Released w/o Limitations [facility]) [facility] Wom Active Duty Team A) TELE CONSULT [id number] Notes Entered by: DEREK BANEGAS 31 Aug 2020 0741 ------- ------- ------- ------- -- radiolo gy request - pls see today REBEL COX 08/31 [facility] Wo Active Duty Team A) [facility]) OUTPATIENT [id number] Notes Entered by: CLIFTON BHAKTA 31 Aug 2020 0908 ------- ------- ------- ------- -- a CLIFTON BHAKTA 08/31 [facility]itations [facility] Wo Active Duty Team A) OUTPATIENT [id number] [facility] DANYA HICKS 08/31 [facility]ased w/o Limitations [facility] Wo Active Duty Team A) [facility] Wo Active Duty Team A) TELE CONSULT [id number] Notes Entered by: MICHELLE RAY I 11 Sep 2020 1040 ------- ------- ------- ------- -- ER f/u for partial ly praveena price ngs REBEL COX 09/11 [facility] Wo Active Duty Team A) [facility] Sleep Clinic) OUTPATIENT [id number] [facility] [id number] YISSEL BALLESTEROS 09/11 Released w/o Limitations [facility] Sleep Clinic) [facility] Wom Active Duty Team A) OUTPATIENT [id number] Right hamstri ng LARRY Reza 09/11 Released with Work/Duty Limitations [facility] Wom Active Duty Team A) [facility] Wom Active Duty Team A) TELE CONSULT [id number] Notes Entered by: MICHELLE RAY I 20 Nov 2020 0844 ------- ------- ------- ------- -- Adderal l RX refill request FRED FOLRES 11/20 [facility] Wo Active Duty Team A) [facility] Sleep Study Lab) OUTPATIENT [id number] HST PICKUP JIN DALY 12/09 Released w/o Limitations [facility] Sleep Study Lab) [facility] Sleep Clinic) OUTPATIENT [id number] HST DROPOFF /RESULT S F2F YISSEL BALLESTEROS 12/10 Released w/o Limitations [facility] Sleep Clinic) [facility](L Emergency Room) OUTPATIENT [id number] DONTA FRITZ 12/22 Released w/o Limitations [facility](L Emergen cy Room) [facility] Wo Active Duty Team A) TELE CONSULT [id number] Notes Entered by: DEREK BANEGAS 29 Dec 2020 1340 ------- ------- ------- ------- -- profile request DANYA Cox 12/29 [facility] Wom Active Duty Team A) [facility] Wo Active Duty Team A) TELE CONSULT [id number] Notes Entered by: ZOLTAN OROZCO 30 Dec 2020 1230 ------- ------- ------- ------- -- Doreen FLORES FRED MELISSA 12/30 Other Not Elsewhere Classified [facility] Wo Active Duty Team A) [facility] Emergency Room) OUTPATIENT [id number] NAOMY HOUSE 02/07 Released w/o Limitations [facility] Emergen cy Room) [facility] Multi-Spe cialty Cl) TELE CONSULT [id number] Notes Entered by: TAZ GODOY 08 Feb 2021 1130 ------- ------- ------- ------- -- COVID Test Walk-In TAZ GODOY 02/08 Other Not Elsewhere Classified [facility] [facility] Wo Active Duty Team A) TELE CONSULT [id number] Notes Entered by: MICHELLE RAY I 10 Feb 2021 1512 ------- ------- ------- ------- -- Quarter s verific ation needed SANDIP MOYA 02/10 Other Not Elsewhere Classified [facility] Wo Active Duty Team A) [facility]) OUTPATIENT [id number] OHE, 177A Acft, CBN [phone] JULIANO TERAN 03/09 Released w/o Limitations [facility] Hearing Conservat ion Cln) OUTPATIENT [id number] 177A AUDIOGR AM BELÉN COREY 04/02 Released w/o Limitations [facility] Hearing Conserv ation Cln) [facility] Wo Active Duty Team A) TELE CONSULT [id number] Notes Entered by: ZOLTAN OROZCO 20 May 2021 0903 ------- ------- ------- ------- -- SICK sx/Rx needed PAPITO VASQUEZ 05/20 [facility]ice Assessment [facility] Active [facility] Team A) [facility] Active Duty Team A) TELE CONSULT [id number] Notes Entered by: MAGY BAH 31 May 2021 0803 ------- ------- ------- ------- -- on going SICK sx / Cov + PAPITO VASQUEZ 05/31 [facility] Active Duty Team A) [facility] Family Med Non-AD Team E) TELE CONSULT [id number] Notes Entered by: Dheeraj KANG 09 Jun 2021 1145 ------- ------- ------- ------- -- STI Check PAPITO VASQUEZ 06/09 [facility] for [facility] Family Med Non-AD Team E) [facility] Active Duty Team A) OUTPATIENT [id number] STI with abd pain and flank pain JIN ISBELL 06/09 Released w/o Limitations [facility] Active Duty Team A) [facility] Active Duty Team D) TELE CONSULT [id number] Notes Entered by: AMISHA ISBELL 23 Jun 2021 1341 ------- ------- ------- ------- -- Lab results JIN ISBELL 06/23 [facility] Active Duty Team D) [facility] Gastroent erology) OUTPATIENT [id number] Elevati on of levels of liver transam inase levels/ [id number] GEGE AVILA 07/12 Released w/o Limitations [facility] Gastroe nterolo gy) [facility] Gastroent erology) TELE CONSULT [id number] Notes Entered by: SHEREE العراقي 22 Jul 2021 1732 ------- ------- ------- ------- -- GEGE Miner 07/22 [facility] Gastroe nterolo gy) [facility] Active Duty Team A) TELE CONSULT [id number] Notes Entered by: JOCELINE HARP 03 Aug 2021 1331 ------- ------- ------- ------- -- Deploym JIN Galeana 08/03 [facility] Active Duty Team A) [facility] Base [facility] Med Clinic) OUTPATIENT [id number] A PHA + [phone] LYDIA CHAVEZ 08/03 [facility]ased w/o Limitations [facility] Base [facility]) [facility] Cold & Allergy Clinic) OUTPATIENT [id number] Notes Entered by: Cheryl HOLLEY 10 Aug 2021 1017 ------- ------- ------- ------- -- IDRADHA JOSHI 08/10 Released w/o Limitations [facility](n [facility]) [facility] Gastroent erology) TELE CONSULT [id number] Notes Entered by: SHEREE العراقي 27 Aug 2021 1509 ------- ------- ------- ------- -- GEGE Miner 08/27 [facility] Gastroe nterolo gy) [facility] Allergy Clinic) OUTPATIENT [id number] [facility] SE[facility] 09/15 Sick at Home/Quarter s [facility]) [facility] Wo Active Duty Team A) TELE CONSULT [id number] Notes Entered by: Shivani KANG 20 Sep 2021 0713 ------- ------- ------- ------- -- Adverse Reactio n to Antibio tic REBEL CXO 09/20 Referred for Appointment [facility] Wo Active Duty Team A) [facility] Allergy [facility]) OUTPATIENT [id number] [facility] SEARS 09/20 Sick at Home/Quarter s [facility]) [facility] Wo Active Duty Team A) TELE CONSULT [id number] Notes Entered by: MAGY BAH 28 Sep 2021 1153 ------- ------- ------- ------- -- Chiro referra PAPITO Encinas 09/28 Other Not Elsewhere Classified [facility](RS Wo Active Duty Team A) [facility] Chiroprac tic Clinic) OUTPATIENT [id number] Low back pain, unspeci quyened JARRET LERNER 10/04 Released w/o Limitations [facility] Chiropr actic Clinic) [facility] Wo Active Duty Team A) TELE CONSULT [id number] Notes Entered by: HENRRY RICO P 06 Oct 2021 1534 ------- ------- ------- ------- -- Working Waiver Request ANUM RICO 10/06 Other Not Elsewhere Classified [facility](RS Wo Active Duty Team A) [facility] Emergency Room) OUTPATIENT [id number] TAMIKO MEYER 10/08 Released w/o Limitations [facility] Emergen cy Room) [facility] Chiropra tic Clinic) OUTPATIENT [id number] Low R back JARRET LERNER 10/11 [facility]ased w/o Limitations [facility] Chiropr actic Clinic) [facility] Team A) TELE CONSULT [id number] Notes Entered by: Shivani KANG 15 Oct 2021 1236 ------- ------- ------- ------- -- KELLI Cameron 10/15 [facility] for Appointment [facility] Wo [facility] Duty Team A) [facility] Chiropra tic Clinic) OUTPATIENT [id number] Low R back JARRET LERNER 10/18 [facility]ased w/o Limitations [facility] Chiropr actic Clinic) [facility] Wo Active Duty Team A) OUTPATIENT [id number] ER f/u w/ back pain, still in pain JIN ISBELL 10/18 [facility]ased w/o Limitations [facility]) [facility] Wo Active Duty Team D) TELE CONSULT [id number] Notes Entered by: AMISHA ISBELL 20 Oct 202121 ------- ------- ------- ------- -- Low back FRED FLORES 10/20 Advice Assessment [facility](RS Wo Active Duty Team D) [facility] Chiroprac tic Clinic) OUTPATIENT [id number] Low R back JARRET LERNER 11/11 Released w/o Limitations [facility] Chiropr actic Clinic) [facility] Chiroprac [facility]) OUTPATIENT [id number] Low R back JARRET LERNER 11/25 Released w/o Limitations [facility] Chiropr actic [facility]) [facility] OUTPATIENT [id number] Low R back JARRET LERNER 12/02 [facility]ased w/o Limitations [facility] Wo Active Duty Team A) TELE CONSULT [id number] Notes Entered by: HENRRY RICO 02 Dec 2021 1701 ------- ------- ------- ------- -- Confide PAPITO Rahman 12/02 Other Not Elsewhere Classified [facility] Wo Active Duty Team A) [facility] A) TELE CONSULT [id number] Notes Entered by: Casey RODRIGUEZ 14 Dec 2021 0915 ------- ------- ------- ------- -- Waiver extensi on and modific atKELLI Ram 12/14 Other Not Elsewhere Classified [facility] Wo Active Duty Team A) [facility] OUTPATIENT [id number] Low R back JARRET LERNER Huang 12/20 [facility]ased w/o Limitations [facility] Chiroin act Clinic) [facility] Wo Active Duty Team A) TELE CONSULT [id number] Notes Entered by: Casey RODRIGUEZ 20 Dec 2021 09 ------- ------- ------- ------- -- JOCE mobilit y waiver confirm ation needed PAPITO VASQUEZ 12/20 Advice Assessment [facility] Wo Active Duty Team A) [facility] Wo Active Duty Team A) TELE CONSULT [id number] Notes Entered by: Shivani KANG 04 Jan 2022 0925 ------- ------- ------- ------- -- BERENICE Smalls 01/04 Other Not Elsewhere Classified [facility] Wo Active Duty Team A) [facility](RS[facility] Physical Therapy) OUTPATIENT [id number] Low back pain, unspeci fied ARMAAN ORTEGA 01/11 Released w/o Limitations [facility] Physica l Therapy ) [facility] Physical Therapy) OUTPATIENT [id number] back pain ANGE ELLIS 01/19 Released w/o Limitations [facility] Physica l Therapy ) [facility](RS Wo Active Duty Team D) TELE CONSULT [id number] AKILAHJIN 01/19 [facility] Wo Active Duty Team D) [facility] Chiroprac tic Clinic) OUTPATIENT [id number] low back EDUARDA, JARRET Huang 01/25 Released w/o Limitations [facility] Chiropr actic Clinic) [facility](RSN Wo Active Duty Team A) TELE CONSULT [id number] 7 Notes Entered by: Casey RODRIGUEZ 31 Jan 2022 1353 ------- ------- ------- ------- -- STD check LIZ COFFEY 01/31 [facility] Wo Active Duty Team A) [facility] Pain Managemen t) OUTPATIENT [id number] Other interve rtebral disc degener ation, lumbar region RANDY SANCHEZ ICH 02/01 Released w/o Limitations [facility] Pain Managem ent) [facility] Physical Therapy) OUTPATIENT [id number] back pain ELISE CANADA 02/02 Released w/o Limitations [facility] Physica l Therapy ) [facility] Managemen t) OUTPATIENT [id number] 3 RIGHT L4-L5 TFESI DANIEL, RANDY VLADIMIROV ICH 02/02 Released w/o Limitations [facility]) [facility] Wo Active Duty Team A) TELE CONSULT [id number] Notes Entered by: MAGY BAH 07 Feb 2022 1034 ------- ------- ------- ------- -- Talk to PCM about 365 ANUM Espinosa 02/07 Other Not Elsewhere Classified [facility] Wo Active Duty Team A) [facility] Physical Therapy) OUTPATIENT [id number] back ELLIS, ANGE T 02/08 Released w/o Limitations [facility] Physica l Therapy ) [facility] Physical Therapy) OUTPATIENT [id number] 7 back pain ARMAAN ORTEGA J 02/09 Released w/o Limitations [facility] Physica l Therapy ) [facility] Dermatolo gy) OUTPATIENT [id number] Cosmeti c eval acne scarrin gRox [phone] RUCHI HOLLEY 02/09 Released w/o Limitations [facility] Dermato logy) [facility] Physical Therapy) OUTPATIENT [id number] back pain JACLYN MARTIN 02/11 Released w/o Limitations [facility] Physica l Therapy ) [facility] Dermatolo gy) TELE CONSULT [id number] Notes Entered by: Casey HOLLEY 11 Feb 2022 1314 ------- ------- ------- ------- -- biopsy result RADHA GAYTAN Reshma 02/11 [facility] Dermato logy) [facility] Clinic) OUTPATIENT [id number] FOUNDAT IONS BERNARDA CHOWDHURY 02/16 Released w/o Limitations [facility](L [facility] Clinic) [facility] Physical Therapy) OUTPATIENT [id number] back pain JACLYN MARTIN A 02/16 Released w/o Limitations [facility] Physica l Therapy ) [facility] Physical Therapy) OUTPATIENT [id number] low back ANGE ELLIS 03/02 Released w/o Limitations [facility] Physica l Therapy ) [facility] Dermatolo gy) OUTPATIENT [id number] Laser resurfa cing paid. [phone] RUCHI HOLLEY 03/03 Released w/o Limitations [facility] Dermato logy) [facility](n Cold & Allergy Clinic) OUTPATIENT [id number] Notes Entered by: Cheryl NUNO 08 Mar 2022 0820 ------- ------- ------- ------- -- CCAC ZAKIA DONAHUE 03/08 Released w/o Limitations [facility](n Cold [facility] Allergy Clinic) [facility] Physical Therapy) OUTPATIENT [id number] back pain ARMAAN ORTEGA 03/09 Released w/o Limitations [facility] Physica l Therapy ) [facility] Physical Therapy) OUTPATIENT [id number] back and neck ANGE ELLIS 03/17 Released w/o Limitations [facility] Physica l Therapy ) [facility] Physical Therapy) OUTPATIENT [id number] back and neck ANGE ELLIS 03/24 Released w/o Limitations [facility](N Physica l Therapy ) [facility] Physical Therapy) OUTPATIENT [id number] LBP ELISE CANADA 03/28 Released w/o Limitations [facility](N Physica l Therapy ) [facility](N Hearing Conservat ion Cln) OUTPATIENT [id number] Audiogr am, 177A ARMANDOADIA 04/04 Released w/o Limitations [facility](N Hearing Conserv ation Cln) [facility] Physical Therapy) OUTPATIENT [id number] Back ARMAAN ORTEGA 04/05 Released w/o Limitations [facility] Physica l Therapy ) [facility] Base Op Med Clinic) OUTPATIENT [id number] 3 OHE, 226B, CBN [id number] PARUL ADA O 04/08 Released w/o Limitations [facility] Base Op Med Clinic) [facility] Wo Active Duty Team A) OUTPATIENT [id number] Neck, shoulde r, knee px MOMMAERTS, LIZ L 04/12 Released w/o Limitations [facility] 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 Procedure Procedure Type Code Date Perfomer Comments [facility] e SCREENING TEST, PURE TONE, AIR ONLY 10/27 DoD SCREENING TEST, PURE TONE, AIR ONLY 10/26 [facility] SIMPLE REPAIR OF SUPERFICIAL WOUNDS OF SCALP, NECK, AXILLAE, EXTERNAL GENITALIA, TRUNK AND/OR EXTREMITIES (INCLUDING HANDS AND FEET); 2.5 CM OR LESS 02/21 [facility] CIRCUMCISION 11/07 DoD OTHER PHOTOTHERAPY 11/07 [facility] BRIEF EMOTIONAL/BEHAVIORA L ASSESSMENT (EG, DEPRESSION INVENTORY, ATTENTION-DEFICIT/H YPERACTIVITY DISORDER [ADHD] SCALE), WITH SCORING AND DOCUMENTATION, PER STANDARDIZED INSTRUMENT 04/15 DoD PSYCHOTHERAPY, 60 MINUTES WITH PATIENT 04/08 [facility] SPIROMETRY, INCLUDING GRAPHIC RECORD, TOTAL AND TIMED VITAL CAPACITY, EXPIRATORY FLOW RATE MEASUREMENT(S), WITH OR WITHOUT MAXIMAL VOLUNTARY VENTILATION 04/08 [facility]D THERAPEUTIC PROCEDURE, 1 OR MORE AREAS, EACH 15 MINUTES; THERAPEUTIC EXERCISES TO DEVELOP STRENGTH AND ENDURANCE, RANGE OF MOTION AND FLEXIBILITY 04/05 [facility] PURE TONE AUDIOMETRY (THRESHOLD), AUTOMATED; AIR ONLY 04/04 [facility] APPLICATION OF A MODALITY TO 1 OR MORE AREAS; ELECTRICAL STIMULATION (UNATTENDED) 03/28 DoD APPLICATION OF A MODALITY TO 1 OR MORE AREAS; ELECTRICAL STIMULATION (UNATTENDED) 03/24 DoD THERAPEUTIC PROCEDURE, 1 OR MORE AREAS, EACH 15 MINUTES; THERAPEUTIC EXERCISES TO DEVELOP STRENGTH AND ENDURANCE, RANGE OF MOTION AND FLEXIBILITY 03/17 [facility] INJECTION(S), ANESTHETIC AGENT(S) AND/OR STEROID; TRIGEMINAL NERVE, EACH BRANCH (IE, OPHTHALMIC, MAXILLARY, MANDIBULAR) 03/10 [facility] THERAPEUTIC PROCEDURE, 1 OR MORE AREAS, [...] ENDURANCE, RANGE OF MOTION AND FLEXIBILITY 02/16 [facility] GROUP PSYCHOTHERAPY (OTHER THAN OF A [...] ENDURANCE, RANGE OF MOTION AND FLEXIBILITY 02/08 [facility] TELE ASSESS & MGT SRV PROV [...] MED DIS 12/14 DoD QUALIFIED NONPHYSICIAN HEALTH VICE PRESIDENT MEDICAL AFFAIRS ONLINE DIGITAL ASSESSMENT AND MANAGEMENT, FOR AN [...] WITH OR WITHOUT MAXIMAL VOLUNTARY VENTILATION 03/11 [facility] HOSPITAL OUTPATIENT CLINIC VISIT SPECIMEN COLLECTION [...] WAIVER SERVICES; NOT OTHERWISE SPECIFIED (NOS) 12/10 [facility] SLEEP STUDY, UNATTENDED, SIMULTANEOUS RECORDING; MINIMUM [...] WAIVER SERVICES; NOT OTHERWISE SPECIFIED (NOS) 09/11 [facility] BRIEF COMM TECH-BASE SERV,E.G. VIRT CHK-IN,BY PHYS/OTH QUAL HCP,RPT E&M SERV,PROV TO EST PT,NOT ORIG FRM REL E/M SERV PROV W/IN PREV 7DAY NOR LEAD TO E/M SRV/PX W/IN NEXT 24HR/SOON YAMIL; 5-10 MIN DISC 09/01 [facility] ADMINISTRATION OF PATIENT-FOCUSED HEALTH RISK ASSESSMENT INSTRUMENT (EG, HEALTH HAZARD APPRAISAL) WITH SCORING AND DOCUMENTATION, PER STANDARDIZED INSTRUMENT 08/31 DoD CRUTCHES UNDERARM, OTHER THAN WOOD, ADJUSTABLE OR FIXED, PAIR, WITH PADS, TIPS AND HANDGRIPS 08/30 [facility] PATIENT EDUCATION, NOT OTHERWISE CLASSIFIED, NON-PHYSICIAN PROVIDER, GROUP, PER SESSION 08/26 DoD IMMUNIZATION ADM,INTRAMUSCULAR INJECTION OF SEVERE AC RESPIRATORY SYNDROME CORONAVIR 2 (SARSCOV-2) (CORONAVIR DIS [COVID-19]) VACC,MRNALNP,SPIKE PROT,PRESERVATIVE FREE,100 MCG/0.5ML DOSAG;SECOND DOSE 07/28 [facility] NUTRITION CLASSES, NON-PHYSICIAN PROVIDER, PER SESSION 07/24 [facility] OXYGEN UPTAKE, GAS ANALYSIS; REST, INDIRECT (SEPARATE PROCEDURE) 07/23 DoD WAIVER SERVICES; NOT OTHERWISE SPECIFIED (NOS) 07/15 [facility] IMMUNIZATION ADM,INTRAMUSCULAR INJECTION OF SEVERE AC RESPIRATORY SYNDROME CORONAVIR 2 (SARSCOV-2) (CORONAVIR DIS [COVID-19]) VACCINE,MRNALNP,SPI KE PROT,PRESERVATIVE FREE,100 MCG/0.5ML DOSAG;1ST DOSE 06/30 [facility] NEEDLE, STERILE, ANY SIZE, EACH 06/18 [facility] PURE TONE AUDIOMETRY (THRESHOLD), AUTOMATED; AIR [...] WAIVER SERVICES; NOT OTHERWISE SPECIFIED (NOS) 08/25 [facility] ADMINISTRATION OF PATIENT-FOCUSED HEALTH RISK ASSESSMENT [...] &/KIERA ASSESS FUNC OUTCOME TYP,20 MIN SPENT [id number] W PAT&/FAM 07/12 DoD APPLICATION OF A MODALITY TO 1 OR MORE AREAS; TRACTION, MECHANICAL 07/09 DoD APPLICATION OF A MODALITY TO 1 OR MORE AREAS; TRACTION, MECHANICAL 06/28 [facility] OSTEOPATHIC MANIPULATIVE TREATMENT (OMT); 1-2 BODY REGIONS INVOLVED 06/28 [facility] ADMINISTRATION OF PATIENT-FOCUSED HEALTH RISK ASSESSMENT INSTRUMENT (EG, HEALTH HAZARD APPRAISAL) WITH SCORING AND DOCUMENTATION, PER STANDARDIZED INSTRUMENT 06/12 [facility] CHIROPRACTIC MANIPULATIVE TREATMENT (CMT); SPINAL, 3-4 REGIONS 06/01 [facility] ADMINISTRATION OF PATIENT-FOCUSED HEALTH RISK ASSESSMENT INSTRUMENT (EG, HEALTH HAZARD APPRAISAL) WITH SCORING AND DOCUMENTATION, PER STANDARDIZED INSTRUMENT 05/30 [facility] SCREENING TEST, PURE TONE, AIR ONLY [...] PROVIDE W/IN THE PREV 7 DAYS,USE THE INTERNET/[employer] NETWORK 05/22 DoD APPLICATION OF A MODALITY [...] OF LOW COMPLEXITY,TYPICALL Y,20 MIN ARE SPENT [id number] W THE PATIENT &/FAMILY 03/28 DoD PURE [...] EQUIP) DIR ONE-ON-ONE CONT,EA 15 MINUTES 04/18 [facility] PURE TONE AUDIOMETRY (THRESHOLD), AUTOMATED; AIR ONLY 04/15 [facility] HEALTH AND BEHAVIOR INTERVENTION, EACH 15 MINUTES, [id number]; INDIVIDUAL 04/12 [facility] DETERMINATION OF REFRACTIVE STATE 04/07 DoD [...] L MONITOR, HEALTH-ORIENT QUESTIONNAIRES), EA 15 MIN [id number] W THE PATIENT; INIT ASSESSMENT 03/28 DoD TELE ASSESS & MGT SRV PROV QUAL NONPHYS HLTH CARE PRO TO EST PAT,PARENT,GUARD NOT ORIG REL ASSESS & MGT SRV PROV W/IN PREV 7 DAYS NOR LEAD ASSESS & MGT SRV/PX W/IN NXT 24H/SOON APT; 11-20 MIN MED DIS 03/25 [facility] Physical Therapy: ___ Se ion Segments, 15 Minutes Each Physical Therapy: ___ Session Segments, 15 Minutes Each 21308 05/22 THI NESS [facility] Non-Physician Phone Call To Patient/Provider Brief (5-10min) Non-Physician Phone Call To Patient/Provider Brief (5-10min) [id number] 05/20 KAYLIE EVANS [facility] Modalities Heat Hot Packs Modalities Heat Hot Packs 36327 05/17 THI NESS [facility] Physical Therapy: ___ Se ion Segments, 15 Minutes Each Physical Therapy: ___ Session Segments, 15 Minutes Each 36884 05/17 [facility] NESS Modalities Heat Hot Packs Modalities Heat Hot Packs 78044 05/12 [facility] NESS Physical Therapy: ___ Se ion Segments, 15 Minutes Each Physical Therapy: ___ Session Segments, 15 Minutes Each 47314 05/12 [facility] Phys Therapy Education Self Care Training - Per 15 Minutes Phys Therapy Education Self Care Training - Per 15 Minutes 88541 04/18 BILLY DON Exercises A isted Exercises For ROM Exercises Assisted Exercises For ROM 71685 04/18 BILLY DON Physical Medicine Physical Therapy Evaluation Physical Medicine Physical Therapy Evaluation 80285 04/18 BILLY DON Patient education, not otherwise cla ified, non-physician provider, group, per se ion 04/17 MADHAVI ORTIZ Threshold Audiogram (Pure Tone) Automated Threshold Audiogram (Pure Tone) Automated [id number] 04/17 MADHAVI ORTIZ Non-Physician Phone Call To Pt/Provider Intermed (11-20 min) Non-Physician Phone Call To Pt/Provider Intermed (11-20 min) 48547 04/14 KAYLIE EVANS Health And Behavior Intervention, Each 15 Minutes Individual Health And Behavior Intervention, Each 15 Minutes Individual 70300 04/11 JASON GUERRA Ophthalmological New Patient Start Comprehensive Care Ophthalmological New Patient Start Comprehensive Care 60713 04/07 TOBIN FRAGA Determination Of Refractive State Determination Of Refractive State 80656 04/07 TOBIN FRAGA Health And Behav A e mt Each 15 Min Initial A e ment Health And Behav Assessmt Each 15 Min Initial Assessment 57636 04/05 JASON GUERRA Non-Physician Phone Call To Pt/Provider Intermed (11-20 min) Non-Physician Phone Call To Pt/Provider Intermed (11-20 min) 13768 03/30 KAYLIE EVANS Audiogram (Screening) Audiogram (Screening) 64437 10/28 WINTER WIN [facility] Physical Therapy: ___ Se ion Segments, 15 Minutes Each Physical Therapy: ___ Session Segments, 15 Minutes Each 41618 07/13 MIGUEL PETERSON Modalities Cryotherapy Cold Packs Modalities Cryotherapy Cold Packs 43536 07/13 MIGUEL PETERSON Physical Therapy Gait Training Physical Therapy Gait Training 56269 07/13 MIGUEL PETERSON Physical Medicine - Group Physical Therapy Se ion Physical Medicine - Group Physical Therapy Session 84598 07/09 TALHA FRANKLIN [facility] Threshold Audiogram (Pure Tone) Automated Threshold Audiogram (Pure Tone) Automated [id number] 07/02 FLIP KWAN [facility] Patient education, not otherwise cla ified, non-physician provider, group, per se JAM Aguero [facility] Brief communication technology-based service, e.g. virtual [...] 5-10 minutes of medical discu CLIFTON Mon [facility] Waiver services; not otherwise specified (NOS) YISSEL BALLESTEROS [facility] Spirometry Spirometry 14745 LYN LEWIS [facility] Non-Physician Phone Call To Patient/Provider Brief (5-10min) Non-Physician Phone Call To Patient/Provider Brief (5-10min) 90074 LARRY ELAINE [facility] Sleep Study Unattended Record: Heart Rate, O2 Saturation, Respiratory Analysis Sleep Study Unattended Record: Heart Rate, O2 Saturation, Respiratory Analysis [id number] ANGELES DALY [facility] Hospital outpatient clinic visit specimen collection for severe acute respiratory syndrome coronavirus 2 (sars-cov-2) (coronavirus disease [covid-19]), any specimen source TAZ GODOY [facility] Threshold Audiogram (Pure Tone) Automated Threshold Audiogram (Pure Tone) Automated [id number] BELÉN COREY [facility] Non-Physician Phone Call To Pt/Provider Intermed (11-20 min) Non-Physician Phone Call To Pt/Provider Intermed (11-20 min) [id number] PAPITO VASQUEZ [facility] Psychometric Neuropsych Testing Battery Admin By Computer Psychometric Neuropsych Testing Battery Admin By Computer [id number] LINDA RUDOLPH [facility] Supervised Injection Intramuscular Antibiotic Supervised Injection Intramuscular Antibiotic 20473 DRAKE DOWNING Verified pt's 6 rights. Pt [...] in waiting room 10 mins after injection. [facility] Chiropractic Manip Treatmt (CMT) Spinal Three To Four Region Chiropractic Manip Treatmt (CMT) Spinal Three To Four Region 86078 JARRET LERNER Mobilization Soft Ti ue Mobilization Soft Tissue 17036 JARRET LERNER 8 minutes [facility] Modalities Electrical Stimulation Unattended Modalities Electrical Stimulation Unattended 65150 JARRET LERNER Modalities Heat Hot Packs Modalities Heat Hot Packs 96776 JARRET LERNER Osteopathic Manip Treatment (OMT) 1-2 Body Regions Involved Osteopathic Manip Treatment (OMT) 1-2 Body Regions Involved 99083 ARMAAN ORTEGA Physical Therapy: ___ Se ion Segments, 15 Minutes Each Physical Therapy: ___ Session Segments, 15 Minutes Each 34839 ARMAAN ORTEGA Exercise equipment ARMAAN ORTEGA Corticosteroid Injection Interlaminar Approach Lumbar Corticosteroid Injection Interlaminar Approach Lumbar 48527 RANDY SANCHEZ Corticosteroid Inj Interlaminar Lumbar L4 - L5 Corticosteroid Inj Interlaminar Lumbar L4 - L5 41997 RANDY SANCHEZMIROSHYAM Hazel Physical Medicine Physical Therapy Re-Evaluation Physical Medicine Physical Therapy Re-Evaluation 43250 ARMAAN ORTEGA Shaving Of Lesion Ankles .6 to 1cm Shaving Of Lesion Ankles .6 to 1cm 83705 RUCHI HOLLEY After explaining the nature of [...] Sterile dressing applied and wound care discussed. [facility] Destruction Of Benign Lesion By Any Method 1 - 14 Lesions Destruction Of Benign Lesion By Any Method 1 - 14 Lesions 45727 RUCHI HOLLEY After verbally discussing reason for [...] ointment application to healing crusts if desired. [facility] Psychiatric Therapy Group (Interactive) Psychiatric Therapy Group (Interactive) 49996 BERNARDA CHOWDHURY [facility] [phone]. SM was not assessed individually for this [...] and Online Resources and Back Facts handouts. [facility] Integumentary Procedures facial dermabrasion Segmental Face Integumentary Procedures facial dermabrasion Segmental Face 25042 RUCHI HOLLEY [facility] Nerve Block Trigeminal Nerve Block Trigeminal 89626 RUCHI HOLLEY [facility] Mobilization Soft Ti ue Mobilization Soft Tissue 31525 ARMAAN ORTEGA [facility] Health And Behavior Intervention, Each 15 Minutes Individual Health And Behavior Intervention, Each 15 Minutes Individual 74989 10/21 BERTA BOWER [facility] Health And Behav A e mt Each 15 Min Initial A e ment Health And Behav Assessmt Each 15 Min Initial Assessment 74784 10/21 BERTA BOWER [facility] Physical Medicine Physical Therapy Re-Evaluation Physical Medicine Physical Therapy Re-Evaluation 94721 07/12 ERICK BRENNAN [facility] Traction Equipment Traction Equipment 41063 07/08 MATTHEW LLAMAS [facility] Traction Equipment Traction Equipment 15081 06/27 MATTHEW LLAMAS [facility] Osteopathic Manip Treatment (OMT) 1-2 Body Regions Involved Osteopathic Manip Treatment (OMT) 1-2 Body Regions Involved 59862 06/27 ERICK BRENNAN [facility] Physical Therapy: ___ Se ion Segments, 15 Minutes Each Physical Therapy: ___ Session Segments, 15 Minutes Each 38644 06/27 ERICK BRENNAN Chiropractic Manip Treatmt (CMT) Spinal Three To Four Region Chiropractic Manip Treatmt (CMT) Spinal Three To Four Region 29609 06/01 RIAN SIMMS Internet Med Svc Qual Nonphys Healthcare Prof Estab Patient Internet Med Svc Qual Nonphys Healthcare Prof Estab Patient 68942 05/29 ANGELES SCHWARZ Audiogram (Screening) Audiogram (Screening) 14955 05/14 SAHIL BROTHERS [facility] Physical Therapy: ___ Se ion Segments, 15 Minutes Each Physical Therapy: ___ Session Segments, 15 Minutes Each 03909 05/09 MATTHEW LLAMAS Physical Therapy: ___ Se ion Segments, 15 Minutes Each Physical Therapy: ___ Session Segments, 15 Minutes Each 08614 05/01 ERICK BRENNAN Physical Medicine Physical Therapy Re-Evaluation Physical Medicine Physical Therapy Re-Evaluation 25225 05/01 ERICK BRENNAN Modalities Heat Hot Packs Modalities Heat Hot Packs 85426 04/24 CATALINA MCDERMOTT Physical Therapy: ___ Se ion Segments, 15 Minutes Each Physical Therapy: ___ Session Segments, 15 Minutes Each 95174 04/24 CATALINA MCDERMOTT Threshold Audiogram (Pure Tone) Automated Threshold Audiogram (Pure Tone) Automated [id number] 04/19 DREAD CALIX Patient education, not otherwise cla ified, non-physician provider, individual, per se ion 04/19 DREAD CALIX Modalities Heat Hot Packs Modalities Heat Hot Packs 10784 04/11 ASUNCION POST Physical Therapy: ___ Se ion Segments, 15 Minutes Each Physical Therapy: ___ Session Segments, 15 Minutes Each 42691 04/11 ASUNCION POST Physical Therapy: ___ Se ion Segments, 15 Minutes Each Physical Therapy: ___ Session Segments, 15 Minutes Each 27968 04/03 CATALINA MCDERMOTT Non-Physician Phone Call To Patient/Provider Brief (5-10min) Non-Physician Phone Call To Patient/Provider Brief (5-10min) 67029 03/28 JOCELINE ESPINO Physical Therapy: ___ Se ion Segments, 15 Minutes Each Physical Therapy: ___ Session Segments, 15 Minutes Each 47807 03/19 CATALINA MCDERMOTT Chiropractic Manip Treatmt (CMT) Spinal Three To Four Region Chiropractic Manip Treatmt (CMT) Spinal Three To Four Region 34130 03/19 RIAN SIMMS Physical Therapy: ___ Se ion Segments, 15 Minutes Each Physical Therapy: ___ Session Segments, 15 Minutes Each 33227 03/09 ERICK BRENNAN Non-Physician Phone Call To Patient/Provider Brief (5-10min) Non-Physician Phone Call To Patient/Provider Brief (5-10min) 51235 02/27 JOCELINE ESPINO Non-Physician Phone Call To Patient/Provider Brief (5-10min) Non-Physician Phone Call To Patient/Provider Brief (5-10min) 95906 01/09 GERARDO LYLE Chiropractic Manip Treatmt (CMT) Spinal Three To Four Region Chiropractic Manip Treatmt (CMT) Spinal Three To Four Region 87611 08/31 RIAN SIMMS Chiropractic Manip Treatmt (CMT) Spinal Three To Four Region Chiropractic Manip Treatmt (CMT) Spinal Three To Four Region 71692 08/15 RIAN SIMMS Chiropractic Manip Treatmt (CMT) Spinal Three To Four Region Chiropractic Manip Treatmt (CMT) Spinal Three To Four Region 38294 07/13 RIAN SIMMS Internet Med Svc Qual Nonphys Healthcare Prof Estab Patient Internet Med Svc Qual Nonphys Healthcare Prof Estab Patient 72313 06/16 ANGELES SCHWARZ Chiropractic Manip Treatmt (CMT) Spinal Three To Four Region Chiropractic Manip Treatmt (CMT) Spinal Three To Four Region 73553 06/13 RIAN SIMMS Chiropractic Manip Treatmt (CMT) Spinal One To Two Regions Chiropractic Manip Treatmt (CMT) Spinal One To Two Regions 37076 06/01 RIAN SIMMS Internet Med Svc Qual Nonphys Healthcare Prof Estab Patient Internet Med Svc Qual [facility] Prof Estab Patient 77811 05/30 BRADLY FRENCH Modalities Heat Hot Packs Modalities Heat Hot Packs 74068 05/28 JOCELINE CERVANTES Physical Therapy: ___ Se ion Segments, 15 Minutes Each Physical Therapy: ___ Session Segments, 15 Minutes Each 47509 05/21 JOCELINE CERVANTES Modalities Heat Hot Packs Modalities Heat Hot Packs 72049 05/21 JCOELINE CERVANTES Acoustic Reflex Testing Acoustic Reflex Testing 78685 05/18 JOCELINE AKERS Tympanometry Tympanometry 27616 05/18 JOCELINE AKERS Comprehensive Audiometry Comprehensive Audiometry 80601 05/18 JOCELINE AKERS Chiropractic Manip Treatmt (CMT) Spinal Three To Four Region Chiropractic Manip Treatmt (CMT) Spinal Three To Four Region 61106 05/16 RIAN SIMMS Modalities Heat Hot Packs Modalities Heat Hot Packs 28491 05/14 JOCELINE CERVANTES Physical Therapy: ___ Se ion Segments, 15 Minutes Each Physical Therapy: ___ Session Segments, 15 Minutes Each 92903 05/14 JOCELINE CERVANTES Threshold Audiogram (Pure Tone) Automated Threshold Audiogram (Pure Tone) Automated [id number] 04/11 BHAVNA ORTEGA Patient education, not otherwise cla ified, non-physician provider, group, per se ion 04/11 BHAVNA ORTEGA Exercises A isted Exercises For ROM Exercises Assisted Exercises For ROM 40039 03/28 BILLY DON Threshold Audiogram (Pure Tone) Automated Threshold Audiogram (Pure Tone) Automated 0208T 03/27 TAMIKO WILSON Patient education, not otherwise cla ified, non-physician provider, group, per se ion 03/27 TAMIKO WILSON Non-Physician Phone Call To Pt/Provider Intermed (11-20 min) Non-Physician Phone Call To Pt/Provider Intermed (11-20 min) 36951 03/23 DARINEL BROWNLEE [facility] Non-Physician Phone Call To Patient/Provider Brief (5-10min) Non-Physician Phone Call To Patient/Provider Brief (5-10min) 64242 11/01 CARLOS REBEL HORN [facility] Non-Physician Phone Call To Patient/Provider Brief (5-10min) Non-Physician Phone Call To Patient/Provider Brief (5-10min) 34180 10/04 FLORA MAYTE KRISH [facility] Non-Physician Phone Call To Patient/Provider Brief (5-10min) Non-Physician Phone Call To Patient/Provider Brief (5-10min) 42257 07/28 KAYLIE EVANS [facility] Physical Medicine Physical Therapy Re-Evaluation Physical Medicine Physical Therapy Re-Evaluation 09319 06/15 BILLY DON [facility] Physical Therapy: ___ Se ion Segments, 15 Minutes Each Physical Therapy: ___ Session Segments, 15 Minutes Each 38456 05/30 THI NESS [facility] Modalities Heat Hot Packs Modalities Heat Hot Packs 05825 05/22 THI NESS [facility] Supervised Injection Intramuscular Antibiotic Supervised Injection Intramuscular Antibiotic 43523 [facility], Each 15 Minutes Health And Behavior Assessment, Each 15 Minutes 67730 FRED FRENCH [facility] Health And Behav A e mt Each 15 Min Initial A e ment Health And Behav Assessmt Each 15 Min Initial Assessment 77699 FRED FRENCH [facility] Osteopathic Manip Treatment (OMT) 3-4 Body Regions Involved Osteopathic Manip Treatment (OMT) 3-4 Body Regions Involved 27532 RITA ANDREWS [facility] Modalities Electrical Stimulation Attended Each 15 Minutes Modalities Electrical Stimulation Attended Each 15 Minutes 07655 RITA ANDREWS [facility] Physical or manipulative therapy performed for maintenance rather than confucianism RITA ANDREWS [facility] Needle, sterile, any size, each RITA ANDREWS [facility] Preventive Medicine Physical Exam Vital Signs Recorded Preventive Medicine Physical Exam Vital Signs Recorded LINDSAY NOMRAN [facility] Pulmonary Function - O2 Uptake - Gas Analysis Pulmonary Function - O2 Uptake - Gas Analysis 33920 LINDSAY NORMAN [facility] Nutrition cla es, non-physician provider, per se ion JAM CARLTON [facility] Health And Behavior Intervention, Each 15 Minutes Individual Health And Behavior Intervention, Each 15 Minutes Individual 14284 BERTA BOWER III, Dr. Supervised Injection Intramuscular Supervised Injection Intramuscular 35577 LINDSAY CRESPO Please give 30mg IM Ketorolac in clinic now. [facility] Injection, ketorolac tromethamine, per 15 mg LINDSAY CRESPO [facility] Patient education, not otherwise cla ified, non-physician provider, individual, per se ion PASTOR AGUILAR [facility] Social History Combined list of available smoking, tobacco, and other social history from [facility] of Defense and [facility] Affairs facilities. Social History Type Response Date Comment Sour e This section is an empty social history section. [facility]
--- OUTSIDE RECORDS SUMMARY | 2024-07-16 15:49 | XMS_ITS | Clinical Summary ---
Author Organization [facility] Address [address] [place] [address] Care Team Providers Care Manager Non Profit Name Role Phone Unavailable Primary Care Provider [...]
--- OUTSIDE RECORDS SUMMARY | 2024-07-16 15:49 | XMS_ITS | Clinical Summary ---
Author Organization [facility] Address [address] [place] [address] Care Team Providers Care Show Design Supervisor Name Role Phone Unavailable Primary Care [...]
[2024-07-16 18:27] LABS: Rheumatoid Factor < 13.0 IU/mL (<15.0)
[2024-07-16 19:21] LABS: Erythrocyte Sedimentation Rate 1 MM/HR (0-15)
[2024-07-17 12:03] LABS: Anti Nuclear Antibody Screen NEGATIVE (NEGATIVE)
[2024-07-17 16:17] LABS: Immunoglobulin E 69 kU/L (<OR=114)
[2024-07-18 13:28] LABS: Cyclic Citrullinated Peptide <16 UNITS
[2024-07-18 16:09] LABS: Antibody to SS-A Antigen <1.0 NEG AI (<1.0 NEG); Antibody to SS-B Antigen <1.0 NEG AI (<1.0 NEG); Scleroderma 70 Antibody <1.0 NEG AI (<1.0 NEG)
== END 2024-07-16 14:42 | disposition home or self-care (01) ==
LOC: HO.WFDLDS 14:41
PROVIDERS: Visit Provider Nurse Practitioner Family
DX: M25.50 Pain in unspecified joint (principal); Z91.09 Other allergy status, other than to drugs and biological substances
CPT/HCPCS: 36415; 82785; 85652; 86038; 86200; 86235; 86431

== ENCOUNTER 2024-08-06 13:06 | Outpatient (AMB) | payer OTHER, SELFPAY ==
--- NOTE | 2024-08-06 13:10 | MHC.OFFVIS ---
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 Intake Note: New patient with ekg c/o chest pain every few months its under left chest lasting a few minutes Veterinary Pathologist Required: No Allergies oxycodone Allergy (Severe, Verified 07/16/24 13:59) Nausea Seasonal Allergies Allergy (Verified 07/16/24 13:59) sneezing Medication List - Last Reconciled 08/06/24 by Abraham Cash MD baclofen 10 mg PO BID baclofen 10 mg PO BID betamethasone dipropionate 0.05% 1 appl topical BID 14 days budesonide-formoterol 80-4.5 mcg/actuation (Symbicort) 1 puff inhalation Q12H bupropion HCl XL 150 mg PO DAILY chorionic gonadotropin, human - 0.5cc IM 2 x a week; dilute in 5 ml NS - injection should be 1000 units per injection 60 days dextroamphetamine-amphetamine 15 mg ER 1 cap PO QAM dextroamphetamine-amphetamine 5 mg (Adderall) 5 mg PO DAILY insulin syringe,safety needle (BD SafetyGlide Insulin Syringe) As directed - for hcg injection lorazepam 2 mg PO BEDTIME PRN mirtazapine 45 mg PO BEDTIME needle (disp) 18 G (BD Regular Bevel [place]) As directed - draw up testosterone omeprazole 20 mg PO DAILY ondansetron 8 mg PO TID safety needles (Easy Touch FlipLock Needle) As directed - administer testosterone syringe (disposable) (BD Luer-Fuentes Syringe) Testosterone injection weekly tadalafil (Cialis) 5 mg PO DAILY 90 days tadalafil (Cialis) 20 mg PO DAILY PRN 90 days testosterone cypionate (Depo-Testosterone) 120 mg (0.6 mL) subcut QWEEK 4 weeks HPI Comments Details: Naseem was referred here for further evaluation because of shortness of breath on exertion. He is a 28-year-old male who works in the . Patient had injury last fall while mountain biking and developed significant injury of the left knee with muscle injury, subsequently complicated by DVT and PE. This was diagnose by CT scan at [facility] and subsequently was treated by blood thinners, says till April for about 4-5 months of therapy. He said the therapy was then stopped after he had repeat imaging of his legs as well as of the chest to make sure he had no residual clot burden. He has no prior history of VTE. He does have prior history of PTSD as well as anxiety as well as ADD. He is currently on testosterone therapy. He has history of hyperlipidemia. No family history of premature coronary artery sudden cardiac that. Over the last year or so preceding development of PE started noticing that his heart rate is elevated. There was no obvious etiology found for it. He does not feel any symptoms of palpitation although says this heart rate elevation is noted throughout the day on his watch. He has been taking stimulant therapy for the last 7 years. There was no other changes in his health. Does not think that this increasing anxiety. He however does complain of exertional shortness of breath. He has been seen by Pulmonary and there has been possibility of asthma has been prescribed Symbicort. He is concerned about fast heart rate due to his brother's history of SVT. He has never had any prolonged fast heart rate. He also complains of left-sided chest pain which is not exertional in nature. [facility] Medical History Acne Excessive daytime sleepiness Bilateral foot pain History of pulmonary embolism History of deep venous thrombosis (DVT) of distal vein of left lower extremity 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 technician terminal and repeater anticoagulation Bilateral pulmonary embolism Elevated serum creatinine At risk for sexually transmitted disease due to partner with multiple partners Chronic heartburn Cervicalgia Lumbago of lumbar region with sciatica Chronic pain of both feet Hyperlipidemia History of chlamydia Witnessed apneic spells Erectile dysfunction History of COVID-19 Lumbar degenerative disc disease PTSD (post-traumatic stress disorder) Lumbar disc disease with radiculopathy ADD (attention deficit disorder) Surgical History No pertinent past surgical history Social History Housing: Apartment Patient Tobacco Use Status: Never used Tobacco e-Cigarette/Vaping Use: Never Used service: Yes Current occupational status: employed Cognitive needs: No Hearing needs: No Vision needs: No Review of Systems Const Denies chills, Denies fatigue, Denies fever(s), Denies frequent falls, Denies weakness, Denies weight gain and Denies weight loss Eyes Denies loss of vision ENT Denies dizziness Card Reports chest pain, Denies leg edema, Denies lightheadedness, Denies palpitations, Reports dyspnea, Reports dyspnea on exertion, Reports orthopnea and Denies other (loss of consciousness) Resp Denies cough, Reports dyspnea, Reports dyspnea on exertion and Denies wheezing GI Denies hematochezia and Denies change in stool character Denies dysuria and Denies urinary frequency Musc Denies abnormal gait, Denies muscle weakness, Denies numbness, Denies radiating pain into limb and Denies tingling Skin/Breast Denies nail changes and Denies rash Neuro Denies abnormal gait, Denies dizziness, Denies frequent falls, Denies loss of vision, Denies memory loss, Denies numbness, Denies tingling and Denies weakness Psych Denies depression and Denies memory loss Endo Denies fatigue and Denies palpitations Masood/Lymph Reports easy bruising and Reports other (anemia) Aller/Immun Denies wheezing Physical Exam Vital Signs: Last Vital Signs Pulse 104 H 08/06/24 13:11 BP 130/86 08/06/24 13:11 BMI result Body Mass Index 31.4 Const General: cooperative, comfortable, no acute distress, well developed, alert, awake and anxious Nutritional Appearance: well nourished and overweight Orientation/consciousness: patient oriented x3 Limitations: no limitations HEENT Head: Yes normocephalic and Yes atraumatic Neck Neck: Yes trachea midline, Yes supple and Yes no JVD Resp Effort & Inspection: normal respiratory effort Auscultation: clear to auscultation bilaterally Cardio Jugular venous distension: no JVD Palpation: normal PMI Rate: tachycardic Rhythm: regular rhythm Heart sounds: S1 normal heart sound present, S2 normal heart sound present, no click, no gallops, no murmurs and no rubs GI Auscultation: normal bowel sounds Skin General skin exam: no rashes or lesions noted Neuro General: patient oriented x3 and no focal motor deficits Extrem General: Yes no clubbing, cyanosis or edema Psych Appearance: grossly normal Affect: Anxious affect present Office Procedures EKG Details: EKG shows sinus tachycardia with T-wave changes in inferior leads which are nonspecific [id number], Complete Assessment & Plan Assessment & Plan (1) Short of breath on exertion: Code(s): R06.02 - Shortness of breath Category: Medical Plan: Shortness of breath on exertion in this young man with prior history of PE although this has been ruled out on this was clearly provoked. He continues to have symptoms exertional shortness of breath after treatment. He might have underlying small airway disease that could explain his shortness of breath although cardiac etiology needs to be ruled out. He has persistent sinus tachycardia and LV systolic and diastolic function needs to be further evaluated as well as evaluate for RV size and systolic function and pulmonary hypertension. These tests will be scheduled in near future. Also suggest a treadmill stress test to evaluate for myocardial ischemia although likelihood of this is extremely low with atypical chest pain syndrome. (2) Sinus tachycardia: Code(s): R00.0 - Tachycardia, unspecified Category: Medical Plan: Sinus tachycardia. This is usually secondary to an underlying cause. Need to rule out secondary causes including hyperthyroidism. Lab work will be ordered. Will suggest a Holter monitor to assess for overall burden of sinus tachycardia and ruled out any other cardiac arrhythmias. He does not have clearly symptoms. Could be related to his stimulant therapy for ADD and/or related to underlying anxiety personality related to his PTSD. Inappropriate sinus tachycardia related to autonomic dysfunction is also likely. Advised to maintain adequate hydration. Avoidance of stimulants was discussed except for currently prescribed therapy for ADD. Stress mitigation strategies were discussed. If remains significantly tachycardic can use nonselective beta-davy to help with heart rate. Will follow with him in 6 weeks time, sooner p.r.n.. Thank you for allowing me to partake in his care Orders: Orders TSH reflex Free T4 08/06/24 R00.0 - Tachycardia, unspecified D Dimer High Sensitivity 08/06/24 R00.0 - Tachycardia, unspecified ECG holter monitor 48 hour 08/06/24 R00.0 - Tachycardia, unspecified Basic Metabolic Panel 08/06/24 R00.0 - Tachycardia, unspecified CA stress test 08/06/24 R00.0 - Tachycardia, unspecified CA echo transthoracic complete Today R06.02 - Shortness of breath Coding Level of Care Code New Pt Level 4 (67123) Complex EM visit Add On G2211 Diagnoses Short of breath on exertion R06.02 Sinus tachycardia R00.0 CPT Codes EKG - CPT: [id number], Complete ([id number])
[2024-08-06 13:11] VITALS: BP 130/86; PULSE 104; BMI 31.4
== END 2024-08-06 13:45 | disposition home or self-care (01) ==
LOC: HO.HCS 13:07
PROVIDERS: PCP Internal Medicine; Visit Provider Internal Medicine Cardiovascular Disease
DX: R06.02 Shortness of breath (principal); R00.0 Tachycardia, unspecified
CPT/HCPCS: 93010; 99204; G2211

== ENCOUNTER 2024-08-06 13:06 | Outpatient (REF) | payer OTHER, SELFPAY ==
[2024-08-06 15:40] LABS: Anion Gap 13 (12-20); Blood Urea Nitrogen 10 mg/dL (9-16); Calcium 9.7 mg/dL (8.4-10.2); Carbon Dioxide 25 mmol/L (22-29); Chloride 108 mmol/L (96-108); Estimated Glomerular Filt Rate > 60; Glucose Random 84 mg/dL (60-115); Potassium 4.1 mmol/L (3.3-5.1); Sodium 142 mmol/L (135-145)
[2024-08-06 15:51] LABS: D Dimer High Sensitivity < 150 NG/ML
[2024-08-06 15:58] LABS: TSH reflex Free T4 2.29 uIU/mL (0.32-4.0)
== END 2024-08-06 13:07 | disposition home or self-care (01) ==
LOC: HO.LAB 13:06
PROVIDERS: PCP Internal Medicine; Visit Provider Internal Medicine Cardiovascular Disease
DX: R06.02 Shortness of breath (principal); R00.0 Tachycardia, unspecified
CPT/HCPCS: 36415; 80048; 84443; 85379; 93005; 99202

== ENCOUNTER 2024-08-09 10:38 | Outpatient (AMB) | payer OTHER, SELFPAY ==
--- NOTE | 2024-08-09 10:57 | MHC.OFFWIV ---
Intake Vital Signs 08/09/24 10:59 Height 6 ft Weight 237 lb BMI 32.1 BP 114/80 Blood Pressure Location Rt brachial Position Sitting Respiration 14 Pulse 97 Pulse Source Pulse Oximeter Temp 98.4 F Temp Source Oral Pulse Oximetry (%) 97 Oxygen Delivery Method Room Air Intake Visit Reasons: EP Lump on neck Intake Note: Pt is here today c/o Rt side of neck lump Patient Tobacco Use Status: Never used Tobacco Allergies oxycodone Allergy (Severe, Verified 08/09/24 11:09) Nausea Seasonal Allergies Allergy (Verified 08/09/24 11:09) sneezing HPI EP Lump on neck HPI Details 28 year old male patient presents to the [place] clinic today with report of a lump on the right side of his neck. He noticed it this morning and reports it is tender. No recent illnesses or fevers. No ear or throat pain. [facility] Medical History Acne Excessive daytime sleepiness Bilateral foot pain History of pulmonary embolism History of deep venous thrombosis (DVT) of distal vein of left lower extremity 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 group home anticoagulation Bilateral pulmonary embolism Elevated serum creatinine At risk for sexually transmitted disease due to partner with multiple partners Chronic heartburn Cervicalgia Lumbago of lumbar region with sciatica Chronic pain of both feet Hyperlipidemia History of chlamydia Witnessed apneic spells Erectile dysfunction History of COVID-19 Lumbar degenerative disc disease PTSD (post-traumatic stress disorder) Lumbar disc disease with radiculopathy ADD (attention deficit disorder) Surgical History No pertinent past surgical history Social History Housing: Apartment Patient Tobacco Use Status: Never used Tobacco e-Cigarette/Vaping Use: Never Used service: Yes Current occupational status: employed Cognitive needs: No Hearing needs: No Vision needs: No Review of Systems Const All systems reviewed & are unremarkable except as noted in HPI and below Physical Exam Vital Signs: Last Vital Signs Temp 98.4 F 08/09/24 10:59 Pulse 97 08/09/24 10:59 Resp 14 08/09/24 10:59 BP 114/80 08/09/24 10:59 Pulse Ox 97 08/09/24 10:59 Oxygen Delivery Method Room Air 08/09/24 10:59 BMI result Body Mass Index 32.1 Const General: cooperative, healthy appearing and no acute distress Nutritional Appearance: average body habitus Limitations: no limitations HEENT Head: Yes normal to inspection Ears: hearing grossly normal bilaterally General nose exam: Normal external nose present Face and sinus: Yes normal facial exam Neck Other: round, pea-sized nodule consistent with a posterior cervical lymph node palpated on right side, mildly tender. No surrounding lymphadenopathy Lymphatic: lymphadenopathy Resp Effort & Inspection: normal respiratory effort Skin General skin exam: no rashes or lesions noted Extrem General: Yes no clubbing, cyanosis or edema Psych Appearance: grossly normal Mental Status: mental status grossly normal Speech and movement: Normal speech and movement present Assessment & Plan Assessment & Plan (1) Lymphadenopathy, posterior cervical: Code(s): R59.0 - Localized enlarged lymph nodes Plan: On the right post. cervical as noted. We discussed what having a swollen lymph node may mean, and that it should resolve with time, as his body heights off what may be causing the inflammation. Advised patient to apply warm compress, and watch area. If this worsens or does not resolve in 1-2 weeks or if he develops any additional concerning symptoms, he can return to the clinic or PCP for further evaluation. He verbalizes understanding and agrees to plan. Coding Level of Care Code Est Pt Level 3 (40319) Diagnoses Lymphadenopathy, posterior cervical R59.0
[2024-08-09 10:59] VITALS: BP 114/80; PULSE 97; RESP 14; TEMP 36.9; O2SAT 97; BMI 32.1
== END 2024-08-09 11:54 | disposition home or self-care (01) ==
PROVIDERS: PCP Internal Medicine; Visit Provider Nurse Practitioner Family
DX: R59.0 Localized enlarged lymph nodes (principal)

== ENCOUNTER → 2024-08-09 10:38 | Outpatient (BNVA) | payer OTHER, SELFPAY | PROVIDERS: PCP Internal Medicine | DX: R59.0 Localized enlarged lymph nodes (principal) | CPT/HCPCS: 99212 ==

== ENCOUNTER 2024-09-03 11:04 | Outpatient (AMB) | payer OTHER, SELFPAY ==
--- OUTSIDE RECORDS SUMMARY | 2024-04-18 09:30 | XMS_ITS ---
Author Organization [facility] Address [address] [place] [address] Care Team Providers Care Manager Plumbing Name Role Phone Ginger ROQUE, Sharon Sewell Primary Care Provider Un available SidMaiae Unavailable [phone] David Garcia [phone] Encounters Encounter Location Date [facility] [address] 04/18/2024 David Garcia Plan Of Treatment Next Appt Details Provider Name:Talisha Lau , 10/11/2024 01:15:00 PM, [address] [place] [address], [address], Progress Notes * Naseem ABERNATHY RDOB:[birth year] (28 yo M)Acc No.[id number]:04/18/2024 Progress Notes Patient: Shivani HANSONSKYLAR Naseem Reddy Provider: Emma Garcia D.P.M. :1995 A ge:28 Y S ex:Male Date:04/18/2024 Address:[address] [place] [address] Pcp:Emma Molina Subjective: * Chief Complaints: * [...] 04/18/2024 Generated for Erendira lopez/Prisca/Humphrey on: 0 09/03/2024 12:19 PM EDT
[2024-09-03 11:07] VITALS: BP 108/66; PULSE 83; O2SAT 96; BMI 31.6
--- NOTE | 2024-09-03 11:07 | MHC.OFFVIS ---
Vital Signs 09/03/24 11:07 Height 6 ft Weight 233 lb 4 oz BMI 31.6 BP 108/66 Blood Pressure Location Rt brachial Position Sitting Pulse 83 Pulse Source Pulse Oximeter Pulse Oximetry (%) 96 Oxygen Delivery Method Room Air Intake Visit Reasons: pulmonary embolism Allergies oxycodone Allergy (Severe, Verified 09/03/24 11:10) Nausea Seasonal Allergies Allergy (Verified 09/03/24 11:10) sneezing HPI HPI pulmonary embolism: Details: Naseem is a pleasant 28 year old male, never smoker, with underlying h/o provoked DVT/PE completed 3 months of eliquis. He was initially referred by PCP for pulmonary evaluation for ongoing dyspnea. He reports dyspnea has been more noticeable over the last few months, occurs both at rest and with exertion. Denies cough, wheezing or chest tightness. Reviewed PFT at the last visit which revealed significant response to bronchodilator in the small to medium airways only and trialed on ICS/LABA however reports no change. Patient seems to think symptoms are more triggered by underlying anxiety. Prior sleep study negative. Prior CTD workup negative. He denies any visits to urgent care or hospitalizations related to respiratory distress since the last visit. He has since been evaluated by cardiology and will be undergoing further work up. 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 Bilateral pulmonary embolism Elevated serum creatinine At risk for sexually transmitted disease due to partner with multiple partners Chronic heartburn Cervicalgia Lumbago of lumbar region with sciatica Chronic pain of both feet Hyperlipidemia History of chlamydia Witnessed apneic spells Erectile dysfunction History of COVID-19 Lumbar degenerative disc disease PTSD (post-traumatic stress disorder) Lumbar disc disease with radiculopathy ADD (attention deficit disorder) Surgical History No pertinent past surgical history Social History Housing: Apartment Patient Tobacco Use Status: Never used Tobacco e-Cigarette/Vaping Use: Never Used service: Yes Current occupational status: employed Cognitive needs: No Hearing needs: No Vision needs: No Review of Systems Const Denies chills, Denies excessive sweating, Denies fever(s), Denies headache(s) and Denies night sweats Eyes Denies dry eyes, Denies irritation and Denies itchy eyes ENT Reports Normal hearing present, Denies headache(s), Denies nasal congestion, Denies nasal discharge, Denies post nasal drip and Denies sore throat Card Denies chest pain, Denies chest pain at rest, Denies chest pain with activity, Denies claudication, Denies leg edema, Denies orthopnea and Denies paroxysmal nocturnal dyspnea Resp Denies chest congestion, Denies cough, Denies excessive phlegm production, Denies pain on inspiration, Denies pain with cough, Denies stridor and Denies wheezing Musc Denies myalgias Neuro Reports Normal hearing present and Denies headache(s) Endo Denies excessive sweating Masood/Lymph Denies lymphadenopathy Aller/Immun Denies itchy eyes, Denies seasonal rhinorrhea and Denies wheezing Physical Exam Vital Signs: Last Vital Signs Pulse 83 09/03/24 11:07 BP 108/66 09/03/24 11:07 Pulse Ox 96 09/03/24 11:07 Oxygen Delivery Method Room Air 09/03/24 11:07 BMI result Body Mass Index 31.6 Const General: cooperative, healthy appearing, comfortable, no acute distress, well developed and alert Orientation/consciousness: patient oriented x3 Limitations: no limitations HEENT Head: Yes normal to inspection, Yes normocephalic and Yes atraumatic Ears: hearing grossly normal bilaterally and external ears normal Eyes General: appearance normal, both eyes and all related structures Eyelids: Yes eyelids normal Sclerae: sclerae normal EOM: EOMs intact bilaterally Neck Neck: Yes normal visual inspection and Yes no lymphadenopathy Lymphatic: no lymphadenopathy noted Chest Chest palpation & inspection: normal inspection of the chest Resp Effort & Inspection: normal respiratory effort, able to speak in complete sentences, no audible wheezes, no cough, no stridor, not tachypneic, no tripod positioning and no use of accessory muscles Auscultation: clear to auscultation bilaterally Cardio Jugular venous distension: no JVD Rate: regular rate Rhythm: regular rhythm Skin Other: warm, dry General skin exam: no rashes or lesions noted Neuro General: patient oriented x3 Cranial nerves: Yes Normal hearing present Cognition (Neuro): normal cognition Gait exam (Neuro): Normal gait present Extrem General: Yes normal to inspection, Yes capillary refill normal, Yes no clubbing, cyanosis or edema and Yes no pedal edema Psych Appearance: grossly normal and well kempt Speech and movement: Normal speech and movement present and Clear speech present Affect: normal affect Attitude: cooperative Thought process: Normal thought process present Thought content: Normal thought content present Insight: Good insight present (Psych) Judgement: Good judgement present (Psych) Assessment & Plan Assessment & Plan (1) Reactive airway disease: Code(s): J45.909 - Unspecified asthma, uncomplicated Category: Medical (2) History of pulmonary embolism: Comment: bilateral 12/2023 Code(s): Z86.711 - Personal history of pulmonary embolism Category: Medical (3) Environmental allergies: Code(s): Z91.09 - Other allergy status, other than to drugs and biological substances Category: Medical Plan PFT revealed no obstructive nor restrictive ventilatory defects identified. No significant response to bronchodilators noted. The patient does have some evidence of small airways disease which could be seen with asthma and trialed on ICS/LABA however no change in symptoms. There is a possibility symptoms are triggered by underlying anxiety however will have further work up with cardiology. At this time, will follow up PRN. All questions were answered and patient is in agreement of plan. Coding Level of Care Code Est Pt Level 3 (42707) Diagnoses Reactive airway disease J45.909 History of pulmonary embolism Z86.711 Environmental allergies Z91.09
--- OUTSIDE RECORDS SUMMARY | 2024-09-03 12:20 | XMS_ITS | Clinical Summary ---
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 Phone Unknown Primary Care [...] - - Pulse - - Temperature 36.5 C (97.7 F) 01/10/2023 5:39 PM EST Respiratory Rate 16 01/10/2023 5:39 PM EST [...] - 19+ 3-dose series) 2013 COVID-19 Vaccine (4 - season) 2023 03/12/2021, 07/28/2020, 06/30/2020 Influenza Vaccine 10/04/2024 12/17/2021, , 12/19/2019, Additional history exists HPV Vaccines Aged Out No longer eligi ble based on patient's age to complete this topic Pneumococcal Vaccine: Pediatric (0-5 Years) and At-Risk Patients (6 to 49 Years) Aged Out No longer eligible based on patient's age to complete this topic Insurance ACTIVE DUTY ACTIVE DUTY Care Teams Farm Tractor 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
--- OUTSIDE RECORDS SUMMARY | 2024-09-03 12:20 | XMS_ITS | Clinical Summary ---
Author Organization [facility] Address [address] [place] [address] Care Team Providers Care Clerk General Office Name Role Phone Unavailable Primary Care Provider [...] Influencers of Health Screening 12/31/2023 Influenza Vaccine (#1) 2024 HIB Vaccines Aged Out No longer [...]
--- OUTSIDE RECORDS SUMMARY | 2024-09-03 12:20 | XMS_ITS | Clinical Summary ---
Author Organization [facility] Address [address] [place] [address] Care Team Providers Care Evp And Chief Operating Officer Name Role Phone Unavailable Primary Care Provider [...] 77 09/11/2022 12:57 PM EDT Temperature 37.1 C (98.7 F) 09/11/2022 12:57 PM EDT Respiratory Rate 16 09/11/2022 12:57 PM EDT [...] Td (1 - Tdap) 2013 Influenza Vaccine (Season Ended) 2024 Pneumococcal Vaccine Aged Out No long er eligible based on patient's age to complete this topic RSV Ped < 20 months Aged Out No longe r eligible based on patient's age to complete this topic
--- OUTSIDE RECORDS SUMMARY | 2024-09-03 12:20 | XMS_ITS | Data Portability ---
[facility] Address [address] [place] [address] Care Team Providers Care Flatbed Truck Driver Name Role Phone ALISON DUFFY Primary Care [...] 6 weeks) to return patient to [facility]. [email or web address] Not available 02/08/2024 08:49:53 02/14/2024 02/14/2024 A:Pt tolerating treatment well, able to complete full treatment without c/o increasing pain. Initiated strength program. Demonstrating good form throughout with minimal cuing required. Max difficulty with SLR, able to complete with low reps. Quick fatigue with strengthening of quad demonstrated with visible muscle quiver. P:Continue with POC, progress as tolerated. [email or web address] Not available 02/14/2024 13:57:42 02/16/2024 02/16/2024 A:Pt tolerating treatment with moderate fatigue. Difficulties performing SLR's without ER. Unable to perform high resistance on the leg press secondary increasing knee pain. P:Continue with POC, progress as tolerated. [email or web address] Not available 02/16/2024 11:56:02 Plan of Treatment Reminders Order Date Submit Date Provider Last Modified By Organization Details Last Modified Time Details Appointments None recorded. Lab None recorded. Referral physical therapist referral - s/p acute, traumatic Left knee patellar dislocation dislocation program 2023 024 [email or web address] [facility], [address], [place], [address], 11:52:43 Procedures None recorded. Surgeries None recorded. [...] gait. Not available Not available Not available USP goal of Walking up or down stairs with reciprocal gait. Not available Not available Not available USP goal of Work Status Return to work full duty no symptoms Not available Not available Not available Next visit of Other PT/OT subsequent I with HEP Not available Not available Not available 3 weeks of Gait and Stance: Normalize gait on level surface without AD Not available Not available Not available USP goal of Gait and Stance: I community ambulation with normal gait Not available Not available Not available USP goal of Sports Pt will return to sports without pain or challenges Not available Not available Not available 3 weeks of Pain 3/10 Not available Not available Not available manager terminal goal of Pain 0/10 Not available Not available Not available manager terminal goal of Strength (knee extension - quadriceps femoris with manual muscle testing) 5/5 Not available Not available Not available manager terminal goal of Strength (knee flexion - hamstring/gas [...] and Address Organization Details Recorded Time 5 85779: Therapeutic Activities (1:1) cancelled Kt Burnett, TEASEL SETTER [address], [place], [address], [facility] 03/11/2024 11:46:41 5 87545 Therapeutic Exercise (1:1) cancelled Kt Burnett, TEASEL SETTER [address], [place], [address], [facility] 03/11/2024 11:46:41 5 90988: Hot or Cold Pack cancelled Kt Burnett, TEASEL SETTER [address], [place], [address], [facility] 03/11/2024 11:46:41 4 37773: Therapeutic Activities (1:1) completed Kt Burnett, TEASEL SETTER [address], [place], [address], [facility] 02/16/2024 08:58:47 4 74501 Therapeutic Exercise (1:1) completed Kt Burnett TEASEL SETTER [address], [place], [address], [facility] 02/16/2024 08:58:47 4 93761: Hot or Cold Pack completed Kt Burnett, TEASEL SETTER [address], [place], [address], [facility] 02/16/2024 08:58:47 4 87621: Therapeutic Activities (1:1) completed Hui Carrillo DPT [address], [place], [address], [facility] 02/14/2024 13:56:28 4 86311 Therapeutic Exercise (1:1) completed Hui Gerardo, DPT [address], [place], [address], [facility] 02/14/2024 13:56:25 4 01643: Hot or Cold Pack completed Hui Carrillo DPT [address], [place], [address], [facility] 02/14/2024 13:55:51 4 04312: Manual therapy completed Hui Carrillo DPT [address], [place], [address], [facility] 02/14/2024 13:56:32 4 80156 Therapeutic Exercise (1:1) completed Hui Carrillo DPT [address], [place], [address], [facility] 02/08/2024 07:49:04 4 65664: Low complexity PT Eval completed Hui Carrillo DPT [address], [place], [address], [facility] 02/08/2024 07:49:06 [...] Available Not Available No t Available Hypodermic [place] 23 gauge x 1 active Not Available Not Available N ot Available methocarbam ol 750 mg tablet Take 1 tablet 3 times a day by oral route for 14 days. 12/28 completed Not Available Not Available [...] Not Available Not Available BD Regular Bevel [place] 18 gauge x 1 1/2 active Not [...] Updated DateTime 12/29/2023 180.34 cm 31.4 kg/m2 126420.28 g Kamaljit Blankenship PA-C [address], [place], [address], [place] - [facility] 12/29/2023 13:26:42 Date Recorded Body height Body mass index (BMI) Body weight Provider Name and Address Organization Details Last Updated DateTime 02/09/2024 180.34 cm 31.4 kg/m2 659339.28 g Ally Selma [place] [facility] 02/09/2024 08:41:45 Social History None recorded. Functional Status None recorded. Mental Status None recorded. Family History Nothing Reported. Medical History No medical history recorded. Past Encounters Encounter ID Performer Location Encounter Start Date Encounter Closed Date Diagnosis/Indication Diagnosis SNOMED-CT Code Diagnosis ICD10 Code Diagnosis Note [id number] Rk Billy PA-C [facility] [place] [address] 06/21/2023 13:59:12 07/12/2023 12:25:25 Pain of left knee joint 9466694054 33658 M25.562 Strain of hamstring muscle 4894639193 04 S76.312A Strain of hamstring tendon 169441897 S76.312A [id number] MD Stephanie Solomon [address] [place] [address] 06/23/2023 10:56:22 07/14/2023 15:03:49 Strain of muscle and/or tendon of thigh 682894073 S76.912A [id number] DREW [facility] [address] [place] [address] 12/29/2023 13:07:43 01/22/2024 11:52:43 Dislocation of patellofemoral joint 324893430 S83.005A [id number] JONNATHAN Lubin PT [address] [place] [address] 02/08/2024 07:37:28 02/08/2024 08:55:30 Instability of left patellofemoral joint 3045383391 115138 M25.239 [id number] D[facility]W [facility] [address] [place] [address] 02/09/2024 08:28:18 02/27/2024 08:01:25 Dislocation of patellofemoral joint 864256855 S83.005D [id number] JONNATHAN Lubin PT [address] [place] [address] 02/14/2024 12:27:30 02/14/2024 13:58:10 Instability of left patellofemoral joint 0844160677 417102 M25.906 [id number] PAVITHRA Jordan PT [address] [place] [address] 02/16/2024 11:04:49 02/16/2024 11:58:31 Instability of left patellofemoral joint 8547573655 265992 M25.362 Health Concerns Section Related Observation LastModified by Organization Detai ls LastModified Time None Recorded Concern Status LastModified by Organization Details LastModified Time None Recorded Advance Directives Directive None Recorded Payers Insurance Date Sequence Insurance Name Policy Number Policy Parks Covered Member ID Parks Member ID Guarantor Name 02/21/2024 1 [facility] () Naseem Mehta [id number] Naseem Cathill Notes Date Note Type Note Provider Name and Address Organization Details Recorded Time 12/29/2023 text/html I am seeing the patient today under the supervision of Dr. Davison who was available but who did not see the patient.HPI: Naseem presents. Examination of his left knee. 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 MARK Dozier-[place] [address], [place], [address], [facility] 02/09/2024 08:54:38 02/14/2024 text/html Pt denies pain a t this time, reporting HEP has been going well, good compliance reported. Hui Carrillo, DPT [address], [place], [address], [facility] 02/14/2024 13:58:04 02/16/2024 text/html Pt without c/o k nee px. Kt Burnett, TEASEL SETTER [address], [place], [address], [facility] 02/16/2024 11:58:25
== END 2024-09-03 11:27 | disposition home or self-care (01) ==
LOC: HO.HPSW 11:04
PROVIDERS: PCP Internal Medicine; Visit Provider Nurse Practitioner Family
DX: J45.909 Unspecified asthma, uncomplicated (principal); Z86.711 Personal history of pulmonary embolism; Z91.09 Other allergy status, other than to drugs and biological substances
CPT/HCPCS: 99213

== ENCOUNTER → 2024-09-03 11:04 | Outpatient (BNVA) | payer OTHER, SELFPAY | PROVIDERS: PCP Internal Medicine; Visit Provider Nurse Practitioner Family | DX: Z91.09 Other allergy status, other than to drugs and biological substances (principal); J45.909 Unspecified asthma, uncomplicated; Z86.711 Personal history of pulmonary embolism | CPT/HCPCS: 99212 ==

== ENCOUNTER → 2024-09-11 07:55 | Outpatient (REF) | payer OTHER, SELFPAY ==
--- OUTSIDE RECORDS SUMMARY | 2024-04-18 09:30 | XMS_ITS ---
Author Organization [facility] Address [address] [place] [address] Care Team Providers Care Boiler Tube Blower Name Role Phone Ginger ROQUE, Sharon Sewell Primary Care Provider Un available SidMaiae Unavailable [phone] David Garcia [phone] Encounters Encounter Location Date [facility] [address] 04/18/2024 David Garcia Plan Of Treatment Next Appt Details Provider Name:Talisha Lau , 10/11/2024 01:15:00 PM, [address] [place] [address], [address], Progress Notes * Naseem ABERNATHY RDOB:[birth year] (28 yo M)Acc No.[id number]:04/18/2024 Progress Notes Patient: Shivani HANSONSKYLAR Naseem Reddy Provider: Emma Garcia D.P.M. :1995 A ge:28 Y S ex:Male Date:04/18/2024 Address:[address] [place] [address] Pcp:Emma Molina Subjective: * Chief Complaints: * * Medical History: Objective: * Vitals: Assessment: Plan: * Treatment: * Images: * The named appointment provid er may or may not be the originator of this progress note, and it is not deemed complete until electronically signed by the appointment provider. Sign off status: Pending * Provider: Elias PopPYandel. Date: 0 04/18/2024 Generated for Erendira lopez/Prisac/Humphrey on: 0 09/11/2024 07:57 AM EDT
--- OUTSIDE RECORDS SUMMARY | 2024-09-11 07:57 | XMS_ITS | Clinical Summary ---
Author Organization [facility] Address [address] [place] [address] Care Team Providers Care Medical Equipment Technician Name Role Phone Unavailable Primary Care [...] 5 Years) and At-Risk Patients (6 to 49 Years) Aged Out No longer eligible b ased on patient's age to complete this topic RSV Immunization Patients Un sahra 20 months Aged Out No longer eligible b ased on patient's age to complete this topic Varicella Vaccines Aged Out No longer eligible based on patient's age to complete this topic
--- OUTSIDE RECORDS SUMMARY | 2024-09-11 07:57 | XMS_ITS | Clinical Summary ---
Author Organization [facility] Address [address] [place] [address] Care Team Providers Care Mark Up Designer Name Role Phone Unavailable Primary Care Provider [...] (1 - Tdap) 2013 Influenza Vaccine (#1) 2024 Pneumococcal Vaccine Aged Out No long er eligible based on patient's age to complete this topic RSV Ped < 20 months Aged Out No longe r eligible based on patient's age to complete this topic
--- OUTSIDE RECORDS SUMMARY | 2024-09-11 07:57 | XMS_ITS | Data Portability ---
[facility], [facility] Address [address] [place] [address] Care Team Providers Care Electrician Chief Name Role Phone ALISON DUFFY Primary Care Provider [phone] Assessment Encounter Date Assessment Date Assessment LastModified by Organization Details LastModified Time 02/08/2024 02/08/2024 A: Pt presenting with S&S consistent with provider dx, decreased strength, ROM and function. Performed HEP with good form, no pain. Written handout provided. P: Pt will benefit from PT as outlined in prescription (2/week for 6 weeks) to return patient to [facility]. [email or web address] Not available 02/08/2024 08:49:53 02/14/2024 02/14/2024 A:Pt tolerating treatment well, able to complete full treatment without c/o increasing pain. Initiated strength program. Demonstrating good form throughout with minimal cuing required. Max difficulty with SLR, able to complete with low reps. Quick fatigue with strengthening of quad demonstrated with visible muscle quiver. P:Continue with POC, progress as tolerated. [email or web address] Not available 02/14/2024 13:57:42 02/16/2024 02/16/2024 A:Pt tolerating treatment with moderate fatigue. Difficulties performing SLR's without ER. Unable to perform high resistance on the leg press secondary increasing knee pain. P:Continue with POC, progress as tolerated. [email or web address] Not available 02/16/2024 11:56:02 Plan of Treatment Reminders Order Date Submit Date Provider Last Modified By Organization Details Last Modified Time Details Appointments None recorded. Lab None recorded. Referral physical therapist referral - s/p acute, traumatic Left knee patellar dislocation dislocation program 2023 024 [email or web address] [facility], [address], [place], [address], 11:52:43 Procedures None recorded. Surgeries None recorded. [...] gait. Not available Not available Not available snf goal of Walking up or down stairs with reciprocal gait. Not available Not available Not available snf goal of Work Status Return to work full duty no symptoms Not available Not available Not available Next visit of Other PT/OT subsequent I with HEP Not available Not available Not available 3 weeks of Gait and Stance: Normalize gait on level surface without AD Not available Not available Not available snf goal of Gait and Stance: I community ambulation with normal gait Not available Not available Not available snf goal of Sports Pt will return to sports without pain or challenges Not available Not available Not available 3 weeks of Pain 3/10 Not available Not available Not available terminal block assembler goal of Pain 0/10 Not available Not available Not available terminal block assembler goal of Strength (knee extension - quadriceps femoris with manual muscle testing) 5/5 Not available Not available Not available terminal block assembler goal of Strength (knee flexion - hamstring/gas [...] and Address Organization Details Recorded Time 5 10647: Therapeutic Activities (1:1) cancelled Kt uBrnett, DIGITAL MANAGER [address], [place], [address], [facility] 03/11/2024 11:46:41 5 01333 Therapeutic Exercise (1:1) cancelled Kt Burnett, DIGITAL MANAGER [address], [place], [address], [facility] 03/11/2024 11:46:41 5 49422: Hot or Cold Pack cancelled Kt Burnett, DIGITAL MANAGER [address], [place], [address], [facility] 03/11/2024 11:46:41 4 55334: Therapeutic Activities (1:1) completed Kt Burnett, DIGITAL MANAGER [address], [place], [address], [facility] 02/16/2024 08:58:47 4 25400 Therapeutic Exercise (1:1) completed Kt Burnett DIGITAL MANAGER [address], [place], [address], [facility] 02/16/2024 08:58:47 4 13535: Hot or Cold Pack completed Kt Burnett, DIGITAL MANAGER [address], [place], [address], [facility] 02/16/2024 08:58:47 4 35799: Therapeutic Activities (1:1) completed Hui Carrillo DPT [address], [place], [address], [facility] 02/14/2024 13:56:28 4 13292 Therapeutic Exercise (1:1) completed Hui Gerardo, DPT [address], [place], [address], [facility] 02/14/2024 13:56:25 4 30950: Hot or Cold Pack completed Hui Carrillo DPT [address], [place], [address], [facility] 02/14/2024 13:55:51 4 61511: Manual therapy completed Hui Carrillo DPT [address], [place], [address], [facility] 02/14/2024 13:56:32 4 71863 Therapeutic Exercise (1:1) completed Hui Carrillo DPT [address], [place], [address], [facility] 02/08/2024 07:49:04 4 51537: Low complexity PT Eval completed Hui Carrillo DPT [address], [place], [address], [facility] [...] Available Not Available No t Available Hypodermic [place] 23 gauge x 1 active Not Available [...] Not Available Not Available BD Regular Bevel [place] 18 gauge x 1 1/2 active Not [...] Updated DateTime 12/29/2023 180.34 cm 31.4 kg/m2 430364.28 g Kamaljit Blankenship PA-C [address], [place], [address], [place] - [facility] 12/29/2023 13:26:42 Date Recorded Body height Body mass index (BMI) Body weight Provider Name and Address Organization Details Last Updated DateTime 02/09/2024 180.34 cm 31.4 kg/m2 939302.28 g Ally Selma [place] - [facility] 02/09/2024 08:41:45 Social History None recorded. Functional Status None recorded. Mental Status None recorded. Family History Nothing Reported. Medical History No medical history recorded. Past Encounters Encounter ID Performer Location Encounter Start Date Encounter Closed Date Diagnosis/Indication Diagnosis SNOMED-CT Code Diagnosis ICD10 Code Diagnosis Note [id number] Rk Billy PA-C Urgent Care [facility] [place] [address] 06/21/2023 13:59:12 07/12/2023 12:25:25 Pain of left knee joint 9335581992 85772 M25.562 Strain of hamstring muscle 2002559403 04 S76.312A Strain of hamstring tendon 263575415 S76.312A [id number] MD Stephanie Solomon [address] [place] [address] 06/23/2023 10:56:22 07/14/2023 15:03:49 Strain of muscle and/or tendon of thigh 766793784 S76.912A [id number] D[facility] [address] [place] [address] 12/29/2023 13:07:43 01/22/2024 11:52:43 Dislocation of patellofemoral joint 745274016 S83.005A [id number] JONNATHAN Lubin [place] [address] [place] [address] 02/08/2024 07:37:28 02/08/2024 08:55:30 Instability of left patellofemoral joint 7197187736 386550 M25.592 [id number] [facility] [address] [place] [address] 02/09/2024 08:28:18 02/27/2024 08:01:25 Dislocation of patellofemoral joint 414936201 S83.005D [id number] JONNATHAN Lubin PT [address] [place] [address] 02/14/2024 12:27:30 02/14/2024 13:58:10 Instability of left patellofemoral joint 0480093472 831577 M25.412 [id number] PAVITHRA Jordan PT [address] [place] [address] 02/16/2024 11:04:49 02/16/2024 11:58:31 Instability of left patellofemoral joint 3676524840 769873 M25.362 Health Concerns Section Related Observation LastModified by Organization Detai ls LastModified Time None Recorded Concern Status LastModified by Organization Details LastModified Time None Recorded Advance Directives Directive None Recorded Payers Insurance Date Sequence Insurance Name Policy Number Policy Parks Covered Member ID Parks Member ID Guarantor Name 02/21/2024 1 [facility] () Naseem Mehta [id number] Naseem Cathill Notes Date Note Type Note Provider Name and Address Organization Details Recorded Time 12/29/2023 text/html I am seeing the patient today under the supervision of Dr. Davison who was available but who did not see the patient.HPI: Naseem presents. Examination of his left knee. 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 3 views of the knee from [...] injury, pulmonary embolism. 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 MARK Dozier-[place] [address], [place], [address], [facility] 02/09/2024 08:54:38 02/14/2024 text/html Pt denies pain a t this time, reporting HEP has been going well, good compliance reported. Hui Carrillo, DPT [address], [place], [address], [facility] 02/14/2024 13:58:04 02/16/2024 text/html Pt without c/o k nee px. Kt Burnett, DIGITAL MANAGER [address], [place], [address], [facility] 02/16/2024 11:58:25
--- NOTE | 2024-09-11 07:58 | CA_ITS ---
Transthoracic Echocardiogram Patient (Last, First, Middle): Naseem Mehta, Gender: Male Date of : 1995 Age: 28 Procedure Date: 09/11/2024 Procedure Type: Transthoracic Echocardiogram Location: OP Height: 182.88 cm Weight: 105.69 kg BSA: 2.27 m2 Heart Rate: bpm BP: 108 / 66 mmHg Glueline Worker: ANITA Referring MD: Abraham Cash MD Rattlesnake Farmer: Abraham Cash MD Symptoms: R06.02 - Shortness of breath Study Quality: Adequate ECG Rhythm: Sinus Conclusions: - 1. Mildly reduced LV systolic function with LVEF of 45-50% 2. Normal cardiac valvular Dopplers 3. Normal RV systolic pressure 4. No gross pericardial effusion Findings Left Ventricle Normal left ventricular cavity size. There is normal left ventricular wall thickness. The left ventricular systolic function is mildly decreased. The visually estimated ejection fraction is between 45-50%. Spectral Doppler is indicative of a normal filling pattern. Peak GLS is -15%, which is mildly depressed. Right Ventricle Normal right ventricular cavity size and systolic function. Atria Both atria are normal in size. There is no evidence of interatrial shunt. Aortic Valve Normal aortic valve structure and function. There is no aortic valve stenosis. There is no aortic valve regurgitation. Mitral Valve Normal mitral valve structure and function. There is trace mitral valve regurgitation. There is no mitral valve stenosis. Pulmonic Valve The pulmonic valve is likely normal. There is trace pulmonic valve regurgitation. Tricuspid Valve Normal tricuspid valve structure. There is trace tricuspid valve regurgitation. The right ventricular systolic pressure is normal. The right ventricular systolic pressure is 8 mmHg. Normal right atrial pressure. There is no evidence of pulmonary hypertension. Great Vessels All visible segments of the aorta are normal in size. The pulmonary artery was not well visualized. There is no dilatation of the ascending aorta measuring 2.80 cm. Venous The inferior vena cava is normal in size and collapses greater than 50% with inspiration. Pericardium/Pleural There is no evidence of pericardial effusion. Prior Study Comparison No prior study available for comparison. Measurements 2D Linear Measurements IVSd: 1.05 0.6-0.9/0.6-1.0 cm LVIDd: 4.91 3.9-5.3/4.2-5.9 cm LVIDd Index: 2.16 2.4-3.2/2.2-3.1 cm/m2 LVIDs: 3.63 2.0-3.6 cm LVPWd: 0.90 0.7-1.1 cm LA Diam: 4.00 2.7-3.8/3.0-4.0 cm LAIDs Index: 1.76 1.5-2.3 cm/m2 LV Mass: 212.93 67-162/88-224 g LV Mass Index: 93.80 43-95/49-115 g/m2 LVOT Diam: 2.30 3.0+(-)1.3 cm 2D Systolic Function EF 4C: 45.00 >55% EF 2C: 48.10 >55% EF BiP: 48.30 >55% Mitral Valve MV Pk E: 0.50 MV PK A: 0.36 MV Decel Time: 209.00 E/A: 1.40 E'Lateral: 13.60 E'Medial: 8.38 E/E' Med: 6.00 E/E' Lat: 3.70 PHT: 61.00 MVA PHT: 3.61 Decel Liberty: 2.40 Aortic Valve AoV Pk Erik: 1.11 AoV Mn Erik: 0.79 AoV VTI: 0.25 AoV Pk Grad: 5.00 Aov Mn Grad: 3.00 BEN Cont.VTI: 2.71 LVOT LVOT Pk Erik: 0.82 LVOT Mn Erik: 0.59 LVOT VTI: 0.16 LVOT Pk Grad: 3.00 LVOT Mn Grad: 2.00 LVOT Diam: 2.30 LVOT Area: 4.15 Diastolic Function MV Pk E: 0.50 MV Pk A: 0.36 E/A: 1.40 E'Medial: 8.38 E/E' Med: 6.00 E' Laterial: 13.60 E/E' Lat: 3.70 Right Ventricle TAPSE (mm): 21.20 TVS' Erik: 11.30 Tricuspid Valve TR Pk Erik: 1.13 TR Pk Grad: 5.00 RA Press: 3.00 RVSP: 8.00 Great Vessels Aorta Ao Asc: 2.80 2.1-3.4 cm Ao Arch: 2.80 Updated in Other Vendor System with Status of Final Abraham Cash MD electronically signed on 09/11/2024 11:52:06 AM with status of Final
--- NOTE | 2024-09-11 07:58 | HM_ITS ---
Conclusion: 1. Patient was monitored for total period of 1 day and 23 hours 2. Baseline was normal sinus rhythm with average heart of 91 beats per minute 3. No significant arrhythmias or pauses noted 4. Frequent sinus tachycardia noted with 28% of the time heart rate about 100 beats per minute 5. No patient reported events MTDD
--- OUTSIDE RECORDS SUMMARY | 2024-09-11 07:58 | XMS_ITS | Clinical Summary ---
Author Organization [facility] Address [address] [place] [address] Care Team Providers Care Aids Counselor Name Role Phone Unknown Primary Care Provider [...] Insurance ACTIVE DUTY ACTIVE DUTY Care Teams Aids Counselor Relationship Specialty Start Date End Date Unknown Unknow Provider Address PCP - General 01/10/23
== END ==
LOC: HO.CARD 07:55
PROVIDERS: PCP Internal Medicine; Visit Provider Internal Medicine Cardiovascular Disease
DX: R00.0 Tachycardia, unspecified (principal); R06.02 Shortness of breath
CPT/HCPCS: 93225; 93306

== ENCOUNTER → 2024-09-11 07:58 | Outpatient (BNV) | payer OTHER, SELFPAY | PROVIDERS: PCP Internal Medicine; Visit Provider Internal Medicine Cardiovascular Disease | DX: R06.02 Shortness of breath (principal) | CPT/HCPCS: 93306; 93356 ==

== ENCOUNTER → 2024-10-11 08:05 | Outpatient (REF) | payer OTHER, SELFPAY ==
--- NOTE | 2024-10-11 08:07 | CA_ITS ---
Acquisition Time: 2024-10-11 08:03:21 Total Exercise Time: 00:08:00 Test Indications: R00.0 Medications: SEE H&P Protocol: DOROTHY Max HR: 166 BPM 86% of Pred: 191 BPM Max BP: 138/84 mmHG Max Work Load: 10.1 METS Exercsie stress test with exercise 8 mins of Dorothy Protocol, achieving 87% MPHR, with reports of SOB, no chest pain, without any arrythmias, with normotensive response to exercise. Without any EKG changes meeting criteria for ischemia. In recovery, pt's breathing returned to baseline. Test reviewed with DR. Roach. Referred By: Abraham Cash Electronically Signed By: Adal Adair
--- OUTSIDE RECORDS SUMMARY | 2024-10-11 08:11 | XMS_ITS | Patient Health Record ---
Author Organization [facility] Address [address] [place] [address] Care Team Providers Care Top Lifter Name Role Phone Ginger ROQUE, Sharon Sewell Primary Care Provider Un available Talisha Lau Unavailable [phone] Waldemar Neri Unavailable [phone] David Garcia Unavailable [phone] Allergies No Known Allergies Results Component Value [...] Provider Speciality Internal M edicine [facility] Referred Provider Talisha Lau Referred Address [address] [facility],[place],[address], Referred Provider Specialty Podiatry Referral Priority Routine Medications Medication SIG (Take, Route, Fr equency, Duration) Notes Start Date End Date Status Physical Therapy . . . 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) Plantar fasciitis, bilateral (M72.2) Active confirmed Vital Signs Blood pressure diastolic 70 mm Hg 08/09/2024 Height 6ft in 08/09/2024 Blood pressure systolic 130 mm Hg 08/09/2024 Weight 228 lbs 08/09/2024 BMI 30.92 kg/m2 08/09/2024 Encounters Encounter Location Date Provider Diagnosis [address] [address] 07/09/2024 Talisha Black Pain in right foot M79.671 ; Plantar fasciitis, bilateral M72.2 ; Other myositis of right foot M60.871 ; Bursitis of right foot M77.51 ; Pain in left foot M79.672 ; Other myositis of left foot M60.872 ; Bursitis of left foot M77.52 ; Pain in right foot M79.671 ; Neuritis of right foot G57.91 and Neuritis of left foot G57.[address] [address] 08/09/2024 Talisha Black Pain in right foot M79.671 ; Plantar fasciitis, bilateral M72.2 ; Other myositis of right foot M60.871 ; Bursitis of right foot M77.51 ; Pain in left foot M79.672 ; Other myositis of left foot M60.872 ; Bursitis of left foot M77.52 ; Pain in right foot M79.671 ; Neuritis of right foot G57.91 and Neuritis of left foot G57.92 [facility] [place] [address] [facility] [address] [place] [address] 08/09/2024 Talisha Sid [facility] [place] [address] [place] [address] 02/05/2024 Talishajessica Lau [facility] [place] [address] [place] [address] 02/15/2024 Talisha Black [facility] [address] [address] 04/11/2024 David Garcia [facility] [place] [address] [place] [address] 07/02/2024 Talishadmitriy Lau [facility] [address] [address] 07/09/2024 Talisha Sid Assessments Encounter Date Diagnosis (ICD Code) Assessment Notes Treatment Notes Treatment Clinical Notes Section Notes 07/09/2024 Pain in right foot (ICD-10 - M79.671) 08/09/2024 Pain in right foot (ICD-10 - M79.671) 08/09/2024 Plantar fasciitis, bilateral (ICD-10 - M72.2) Patient Educated with: HEEL CORD STRETCHES.pdf (HEEL CORD STRETCHES.pdf) Patient Educated with: RICE THERAPY.pdf (RICE THERAPY.pdf) 08/09/2024 Other myositis of right foot (ICD-10 - M60.871) 07/09/2024 Other myositis of right foot (ICD-10 - M60.871) 07/09/2024 Plantar fasciitis, bilateral (ICD-10 - M72.2) Patient Educated with: HEEL CORD STRETCHES.pdf (HEEL CORD STRETCHES.pdf) Patient Educated with: RICE THERAPY.pdf (RICE THERAPY.pdf) 07/09/2024 Bursitis of right foot (ICD-10 - M77.51) 08/09/2024 Bursitis of right foot (ICD-10 - M77.51) 08/09/2024 Pain in left foot (ICD-10 - M79.672) 07/09/2024 Pain in left foot (ICD-10 - M79.672) 07/09/2024 Other myositis of left foot (ICD-10 - M60.872) 08/09/2024 Other myositis of left foot (ICD-10 - M60.872) 08/09/2024 Bursitis of left foot (ICD-10 - M77.52) 07/09/2024 Bursitis of left foot (ICD-10 - M77.52) 07/09/2024 Pain in right foot (ICD-10 - M79.671) 08/09/2024 Pain in right foot (ICD-10 - M79.671) 08/09/2024 Neuritis of right foot (ICD-10 - G57.91) 07/09/2024 Neuritis of right foot (ICD-10 - G57.91) 07/09/2024 Neuritis of left foot (ICD-10 - G57.92) 08/09/2024 Neuritis of left foot (ICD-10 - G57.92) Plan Of Treatment Next Appt Details Provider Name:Talisha Esqueda Sid , 10/11/2024 01:15:00 PM, [address] [facility], [place], [address], Insurance Providers Payer Name Payer Address Payer Phone Subscriber Number Group Number Insured Name Patient Relationship to Insured Coverage Start Date Coverage End Date [facility] [address] [place] [address] [id number] Naseem Aguilar Self - patient is the insured Medical (General) History Medical History History ICD Code Anxiety Back,Hip,and Knee pain covid-19 Depression Headaches/Migraines Reflux ( GERD) Sciatica Vascular phlebitis (clots) Hospitalization History Reason Date[facility]
--- OUTSIDE RECORDS SUMMARY | 2024-10-11 08:11 | XMS_ITS | Clinical Summary ---
Author Organization [facility] Address [address] [place] [address] Care Team Providers Care Php Mysql Web Developer Name Role Phone Unavailable Primary Care Provider [...]
--- OUTSIDE RECORDS SUMMARY | 2024-10-11 08:12 | XMS_ITS | Clinical Summary ---
Author Organization [facility] Address [address] [place] [address] Care Team Providers Care Geochemistry Teacher Name Role Phone Unknown Primary Care Provider [...] Insurance ACTIVE DUTY ACTIVE DUTY Care Teams Geochemistry Teacher Relationship Specialty Start Date End Date Unknown Unknow Provider Address PCP - General 01/10/23
--- OUTSIDE RECORDS SUMMARY | 2024-10-11 08:12 | XMS_ITS | Clinical Summary ---
Author Organization [facility] Address [address] [place] [address] Care Team Providers Care Group Home Paraprofessional Name Role Phone Unavailable Primary Care Provider [...] 2013 COVID-19 Vaccine (2023-2 5 season) 2023 HIV Screening 12/31/2023 Hepatitis C Screening 12/31/2023 Social Influencers of Health Screening 12/31/2023 Depression Screening 03/06/2024 Influenza Vaccine (#1) 2024 HIB Vaccines Aged [...]
== END ==
LOC: HO.CARD 08:05
PROVIDERS: PCP Internal Medicine; Visit Provider Internal Medicine Cardiovascular Disease
DX: R00.0 Tachycardia, unspecified (principal)
CPT/HCPCS: 93017

== ENCOUNTER → 2024-10-11 08:07 | Outpatient (BNV) | payer OTHER, SELFPAY | PROVIDERS: PCP Internal Medicine | DX: R06.02 Shortness of breath (principal) | CPT/HCPCS: 93016; 93018 ==

== ENCOUNTER 2024-10-18 10:31 | Outpatient (AMB) | payer OTHER, SELFPAY ==
--- NOTE | 2024-10-18 10:33 | A.OFFVIS_ITS ---
Vital Signs 10/18/24 10:34 Height 6 ft Weight 227 lb BMI 30.8 BP 156/76 H Blood Pressure Location Lt brachial Position Sitting Respiration 16 Pulse 96 Pulse Source Pulse Oximeter Pulse Oximetry (%) 97 Oxygen Delivery Method Room Air Intake Visit Reasons: Procedure Discussion Harvest Worker Required: No Allergies oxycodone Allergy (Severe, Verified 10/18/24 10:35) Nausea Seasonal Allergies Allergy (Verified 10/18/24 10:35) sneezing Medication List - Last Reconciled 10/18/24 by Ally Leach LPN baclofen 10 mg PO BID betamethasone dipropionate 0.05% 1 appl topical BID 14 days budesonide-formoterol 80-4.5 mcg/actuation (Symbicort) 1 puff inhalation Q12H 90 days bupropion HCl XL 150 mg PO DAILY chorionic gonadotropin, human - 0.5cc IM 2 x a week; dilute in 5 ml NS - injection should be 1000 units per injection 60 days dextroamphetamine-amphetamine 15 mg ER 1 cap PO QAM dextroamphetamine-amphetamine 5 mg (Adderall) 5 mg PO DAILY insulin syringe,safety needle (BD SafetyGlide Insulin Syringe) As directed - for hcg injection lorazepam 2 mg PO BEDTIME PRN mirtazapine 45 mg PO BEDTIME needle (disp) 18 G (BD Regular Bevel [place]) As directed - draw up testosterone weekly omeprazole 20 mg PO DAILY ondansetron 8 mg PO TID Pregnyl (chorionic gonadotropin, human) 1,000 units IM 2XW 10 weeks NS safety needles (Easy Touch FlipLock Needle) As directed - administer testosterone weekly syringe (disposable) (BD Luer-Fuentes Syringe) Testosterone injection twice weekly tadalafil (Cialis) 20 mg PO DAILY PRN 90 days tadalafil (Cialis) 5 mg PO DAILY 90 days testosterone cypionate (Depo-Testosterone) 120 mg (0.6 mL) subcut QWEEK 90 days HPI HPI Procedure Discussion: Details: History of Present Illness The patient is a 28-year-old male presenting with low back pain. The pain has been persistent and sometimes radiates towards the legs, with episodes of intense pain occurring in the morning and taking a couple of days to subside. The patient has tried various interventions, including a vibrating and heat band, child care center assistant director, and swimming, which have provided some relief but not resolved the issue. The patient has a history of degenerative disc disease, which is suspected to be contributing to the back pain. Previous imaging, including MRI, has shown no significant abnormalities that explain the pain, and the spine appears normal. The patient has previously received epidural injections, which provided temporary relief, and is considering another injection for short-term pain management. The patient also reports a pars defect, which may be contributing to the instability and pain experienced. The patient has been advised to continue swimming as a long-term management strategy for back health. Additionally, the patient experiences word finding difficulty, which may be related to medication use, specifically bupropion. 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 Pain Description - Onset: Persistent low back pain with episodes of intense pain in the morning - Quality: Radiating pain towards the legs - Exacerbating factors: Unknown specific triggers, but persistent over time - Relieving factors: Temporary relief from epidural injections, child care center assistant director, and swimming - Interference: Affects daily activities and requires ongoing management strategies Physical Exam - Appears afebrile. - Alert and oriented. - Mood and affect appropriate. - Follows and participates in conversation appropriately. - Respiratory effort is unlabored. - Able to transition from sit to stand unassisted. - Ambulates with bilaterally normal heel strike and toe off. - Able to stand and walk on toes and heels. - Pain on lumbar ROM. Pain Management - Affect: Pain impacts daily activities and psychological wellbeing - Analgesia: Previous epidural injections provided temporary relief; considering another injection - Adverse Effects: Word finding difficulty potentially related to bupropion use - Activities of Daily Living: Pain interferes with daily activities; swimming recommended for management - Aberrant Drug Related Behaviors: No aberrant behaviors reported [facility] Medical History Acne Excessive daytime sleepiness Bilateral foot pain History of pulmonary embolism History of deep venous thrombosis (DVT) of distal vein of left lower extremity 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 exterminator 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 Bilateral pulmonary embolism Elevated serum creatinine At risk for sexually transmitted disease due to partner with multiple partners Chronic heartburn Cervicalgia Lumbago of lumbar region with sciatica Chronic pain of both feet Hyperlipidemia History of chlamydia Witnessed apneic spells Erectile dysfunction History of COVID-19 Lumbar degenerative disc disease PTSD (post-traumatic stress disorder) Lumbar disc disease with radiculopathy ADD (attention deficit disorder) Surgical History No pertinent past surgical history Social History Housing: Apartment Patient Tobacco Use Status: Never used Tobacco e-Cigarette/Vaping Use: Never Used service: Yes Current occupational status: employed Cognitive needs: No Hearing needs: No Vision needs: No Physical Exam Vital Signs: Last Vital Signs Pulse 96 10/18/24 10:34 Resp 16 10/18/24 10:34 BP 156/76 H 10/18/24 10:34 Pulse Ox 97 10/18/24 10:34 Oxygen Delivery Method Room Air 10/18/24 10:34 BMI result Body Mass Index 30.8 Assessment & Plan Assessment & Plan (1) Lumbar disc disease with radiculopathy: Comment: L5-S1 status post epidural injection in [facility] 2021 currently going to [facility] in [place] status post right L4-L5 interlaminar NITHYA. Code(s): M51.16 - Intervertebral disc disorders with radiculopathy, lumbar region Category: Medical (2) Pars defect of lumbar spine: Code(s): M43.06 - Spondylolysis, lumbar region Category: Medical Plan Plan - Repeat L5/S1 NITHYA for temporary pain relief. - Consideration of DiscSeel procedure for long-term management of degenerative disc disease. - Recommendation to continue swimming as a long-term management strategy for back health. - Referral for aquatic therapy if available. - Monitor and adjust bupropion use due to potential side effects on cognitive function. Patient was informed and verbally consented to the use of an ambient scribe for clinic note documentation during this visit. Discussion Notes During the visit, we discussed the patient's ongoing low back pain and the potential benefits and limitations of an epidural injection for temporary relief. We also considered the DiscSeel procedure as a possible long-term solution for degenerative disc disease, although more information is needed about its efficacy. I recommended continuing swimming as a beneficial activity for back health and discussed the possibility of aquatic therapy. We addressed the patient's word finding difficulty, potentially linked to bupropion, and discussed monitoring and adjusting the medication as needed. Patient Instructions - Continue swimming regularly to support back health. - Follow up for an epidural injection as scheduled. - Monitor for any changes in cognitive function and report them. - Consider aquatic therapy if available and recommended. Orders: Orders PT Evaluation and Treatment 10/18/24 M43.06 - Spondylolysis, lumbar region, M51.16 - Intervertebral disc disorders with radiculopathy, lumbar region Coding Level of Care Code Est Pt Level 3 (08190) Diagnoses Lumbar disc disease with radiculopathy M51.16 Pars defect of lumbar spine M43.06
[2024-10-18 10:34] VITALS: BP 156/76; PULSE 96; RESP 16; O2SAT 97; BMI 30.8
--- OUTSIDE RECORDS SUMMARY | 2024-10-18 10:37 | XMS_ITS | Clinical Summary ---
Author Organization [facility] Address [address] [place] [address] Care Team Providers Care Pediatric Lpn Name Role Phone Unavailable Primary Care Provider [...]
--- OUTSIDE RECORDS SUMMARY | 2024-10-18 10:37 | XMS_ITS | Clinical Summary ---
Author Organization [facility] Address [address] [place] [address] Care Team Providers Care Hospitality Coordinator Name Role Phone Unknown Primary Care [...] Insurance ACTIVE DUTY ACTIVE DUTY Care Teams Hospitality Coordinator Relationship Specialty Start Date End Date Unknown Unknow Provider Address PCP - General 01/10/23
--- OUTSIDE RECORDS SUMMARY | 2024-10-18 10:37 | XMS_ITS | Clinical Summary ---
Author Organization [facility] Address [address] [place] [address] Care Team Providers Care Services Tech Name Role Phone Unavailable Primary Care Provider [...]
--- OUTSIDE RECORDS SUMMARY | 2024-10-18 10:37 | XMS_ITS | Patient Health Record ---
[facility] Address [address] [place] [address] Care Team Providers Care Political Anthropologist Name Role Phone Ginger ROQUE, Sharon Sewell Primary Care Provider Un available Talisha Lau Unavailable [phone] Waldemar Neri Unavailable [phone] David Garcia Unavailable [phone] Allergies No Known Allergies Results Component Value [...] Provider Speciality Internal M edicine [facility]erred Provider Talisha Lau Referred Address [address],[place], [place],[address], Referred Provider Specialty Podiatry Referral Priority Routine Medications Medication SIG (Take, Route, Fr equency, Duration) Notes Start Date End Date Status Adderall XR Active Custom Orthotics as directed A ctive buPROPion HCl Active Testosterone Active Physical Therapy . . . 2-3x/week; Durat ion: 3-4 weeks 10/11/2024 Active Physical Therapy . . . 2-3x/week; Durat ion: 3-4 weeks 08/09/2024 Active Immunizations Vaccine Route Administration Date Status [...] Risk Notes Problem Mononeuropathy of lower limb (900908713) Neuritis of right foot (G57.91) Active confirmed Problem Mononeuropathy of lower limb (807310396) Neuritis of left foot (G57.92) Active confirmed Problem Plantar fascial fibromatosis (64462297) Plantar fasciitis, bilateral (M72.2) Active confirmed Vital Signs Blood pressure diastolic 70 mm Hg 08/09/2024 Height 6ft in 10/11/2024 Blood pressure systolic 130 mm Hg 08/09/2024 Weight 228 lbs 10/11/2024 BMI 30.92 kg/m2 10/11/2024 Encounters Encounter Location Date Provider [facility] [address] 07/09/2024 Talisha Black Pain in right foot M79.671 ; Plantar fasciitis, bilateral M72.2 ; Other myositis of right foot M60.871 ; Bursitis of right foot M77.51 ; Pain in left foot M79.672 ; Other myositis of left foot M60.872 ; Bursitis of left foot M77.52 ; Pain in right foot M79.671 ; Neuritis of right foot G57.91 and Neuritis of left foot G57.[address] [facility] [address] 08/09/2024 Talisha Black Pain in right foot M79.671 ; Plantar fasciitis, bilateral M72.2 ; Other myositis of right foot M60.871 ; Bursitis of right foot M77.51 ; Pain in left foot M79.672 ; Other myositis of left foot M60.872 ; Bursitis of left foot M77.52 ; Pain in right foot M79.671 ; Neuritis of right foot G57.91 and Neuritis of left foot G57.92 [facility] [address] [place] [address] 10/11/2024 Atlisha Black Pain in right foot M79.671 ; Plantar fasciitis, bilateral M72.2 ; Other myositis of right foot M60.871 ; Bursitis of right foot M77.51 ; Pain in left foot M79.672 ; Other myositis of left foot M60.872 ; Bursitis of left foot M77.52 ; Pain in right foot M79.671 ; Neuritis of right foot G57.91 and Neuritis of left foot G57.[address] [address] 02/05/2024 Talishajessica Lau [facility] [address] [address] 02/15/2024 [facility] [address] 04/11/2024 David Garcia [facility] [address] 07/02/2024 Talishajessica Lau [facility] [address] 07/09/2024 [facility] [address] [address] 08/09/2024 Talisha Black [facility] [address] 10/14/2024 Talisha Black Assessments Encounter Date Diagnosis (ICD Code) Assessment Notes Treatment Notes Treatment Clinical Notes Section Notes 07/09/2024 Pain in right foot (ICD-10 - M79.671) 08/09/2024 Pain in right foot (ICD-10 - M79.671) 08/09/2024 Plantar fasciitis, bilateral (ICD-10 - M72.2) Patient Educated with: HEEL CORD STRETCHES.pdf (HEEL CORD STRETCHES.pdf) Patient Educated with: RICE THERAPY.pdf (RICE THERAPY.pdf) 10/11/2024 Pain in right foot (ICD-10 - M79.671) 10/11/2024 Plantar fasciitis, bilateral (ICD-10 - M72.2) Patient Educated with: INSTRUCTIONS FOR PROPER USE OF ORTHOTICS.pdf (INSTRUCTIONS FOR PROPER USE OF ORTHOTICS.pdf) 08/09/2024 Other myositis of right foot (ICD-10 - M60.871) 10/11/2024 Other myositis of right foot (ICD-10 - M60.871) 07/09/2024 Other myositis of right foot (ICD-10 - M60.871) 07/09/2024 Plantar fasciitis, bilateral (ICD-10 - M72.2) Patient Educated with: HEEL CORD STRETCHES.pdf (HEEL CORD STRETCHES.pdf) Patient Educated with: RICE THERAPY.pdf (RICE THERAPY.pdf) 07/09/2024 Bursitis of right foot (ICD-10 - M77.51) 10/11/2024 Bursitis of right foot (ICD-10 - M77.51) 08/09/2024 Bursitis of right foot (ICD-10 - M77.51) 07/09/2024 Pain in left foot (ICD-10 - M79.672) 10/11/2024 Pain in left foot (ICD-10 - M79.672) 08/09/2024 Pain in left foot (ICD-10 - M79.672) 07/09/2024 Other myositis of left foot (ICD-10 - M60.872) 08/09/2024 Other myositis of left foot (ICD-10 - M60.872) 10/11/2024 Other myositis of left foot (ICD-10 - M60.872) 08/09/2024 Bursitis of left foot (ICD-10 - M77.52) 10/11/2024 Bursitis of left foot (ICD-10 - M77.52) 07/09/2024 Bursitis of left foot (ICD-10 - M77.52) 07/09/2024 Pain in right foot (ICD-10 - M79.671) 08/09/2024 Pain in right foot (ICD-10 - M79.671) 10/11/2024 Pain in right foot (ICD-10 - M79.671) 10/11/2024 Neuritis of right foot (ICD-10 - G57.91) 08/09/2024 Neuritis of right foot (ICD-10 - G57.91) 07/09/2024 Neuritis of right foot (ICD-10 - G57.91) 07/09/2024 Neuritis of left foot (ICD-10 - G57.92) 08/09/2024 Neuritis of left foot (ICD-10 - G57.92) 10/11/2024 Neuritis of left foot (ICD-10 - G57.92) Plan Of Treatment Next Appt Details Provider Name:Talisha Esqueda Sid , 12/20/2024 01:45:00 PM, [address] [facility], [place], [address], Insurance Providers Payer Name Payer Address Payer Phone Subscriber Number Group Number Insured Name Patient Relationship to Insured Coverage Start Date Coverage End Date [facility] [address] [place] [address] [id number] Naseem Aguilar Self - patient is the insured Medical (General) History Medical History History ICD Code Anxiety Back,Hip,and Knee pain covid-19 Depression Headaches/Migraines Reflux ( GERD) Sciatica Vascular phlebitis (clots) Hospitalization History Reason Date(Month/Year) [facility] 03/30
== END 2024-10-18 11:19 | disposition home or self-care (01) ==
LOC: HO.PMC 10:33
PROVIDERS: PCP Internal Medicine; Visit Provider Internal Medicine
DX: M51.16 Intervertebral disc disorders with radiculopathy, lumbar region (principal); M43.06 Spondylolysis, lumbar region
CPT/HCPCS: 99213

== ENCOUNTER → 2024-10-18 10:31 | Outpatient (BNVA) | payer OTHER, SELFPAY | PROVIDERS: PCP Internal Medicine; Visit Provider Internal Medicine | DX: M51.16 Intervertebral disc disorders with radiculopathy, lumbar region (principal); M43.06 Spondylolysis, lumbar region | CPT/HCPCS: 99212 ==

== ENCOUNTER 2024-10-31 10:04 | Outpatient (REF) | payer OTHER, SELFPAY ==
[2024-10-31 11:52] LABS: Hematocrit 49.7 % (42.0-52.0); Hemoglobin 17.8 g/dl (14.0-18.0); Mean Corpuscular HGB Conc 35.8 g/dl (31.0-36.0); Mean Corpuscular Hemoglobin 31.6 pg (27.0-33.0); Mean Corpuscular Volume 88.3 fL (80.0-98.0); NRBC Abs Auto 0.000 X10*3/uL (0.0-0.012); NRBC Pct Auto 0.0 /100WBC (0.0-0.2); Platelet Count 236 X10*3/uL (160-400); Red Blood Count 5.63 X10*6/uL (4.60-5.80); White Blood Count 7.2 X10*3/uL (4.8-10.8)
[2024-10-31 12:54] LABS: Prostate Specific Antigen 0.34 ng/mL (<0.05-4.0)
[2024-11-07 16:38] LABS: Metanephrine, Free <25 pg/mL (<=57); Normetanephrines, Free 74 pg/mL (<=148); Total Metanephrine, Free 74 pg/mL (<=205)
== END 2024-10-31 10:05 | disposition home or self-care (01) ==
LOC: HO.LAB 10:04
PROVIDERS: Absent Provider Urology; PCP Internal Medicine; Visit Provider Nurse Practitioner Family
DX: I42.9 Cardiomyopathy, unspecified (principal); E29.1 Testicular hypofunction; R00.0 Tachycardia, unspecified; R06.02 Shortness of breath; F98.8 Other specified behavioral and emotional disorders with onset usually occurring in childhood and adolescence; Z86.711 Personal history of pulmonary embolism; Z12.5 Encounter for screening for malignant neoplasm of prostate; Z79.899 Other long term (current) drug therapy
CPT/HCPCS: 36415; 82088; 83835; 84153; 84403; 85027; 93005; 99212

== ENCOUNTER 2024-10-31 10:04 | Outpatient (AMB) | payer OTHER, SELFPAY ==
--- NOTE | 2024-10-31 10:05 | MHC.OFFVIS ---
Vital Signs 10/31/24 10:06 Height 6 ft Weight 228 lb 13.437 oz BMI 31.0 BP 118/90 H Blood Pressure Location Lt brachial Position Sitting Pulse 119 H Pulse Source Monitor Intake Visit Reasons: f/u after testing echo, holter ,labs Ett Eyeglass Frames Inspector Required: No Allergies oxycodone Allergy (Severe, Verified 10/31/24 10:08) Nausea Seasonal Allergies Allergy (Verified 10/31/24 10:08) sneezing Medication List - Last Reconciled 10/31/24 by BENITA Lynn baclofen 10 mg PO BID betamethasone dipropionate 0.05% 1 appl topical BID 14 days budesonide-formoterol 80-4.5 mcg/actuation (Symbicort) 1 puff inhalation Q12H 90 days chorionic gonadotropin, human - 0.5cc IM 2 x a week; dilute in 5 ml NS - injection should be 1000 units per injection 60 days dextroamphetamine-amphetamine 15 mg ER 1 cap PO QAM duloxetine 20 mg PO BID insulin syringe,safety needle (BD SafetyGlide Insulin Syringe) As directed - for hcg injection lorazepam 2 mg PO BEDTIME PRN mirtazapine 30 mg PO BEDTIME needle (disp) 18 G (BD Regular Bevel Catlin) As directed - draw up testosterone weekly omeprazole 20 mg PO DAILY ondansetron 8 mg PO TID Pregnyl (chorionic gonadotropin, human) 1,000 units IM 2XW 10 weeks NS safety needles (Easy Touch FlipLock Needle) As directed - administer testosterone weekly syringe (disposable) (BD Luer-Fuentes Syringe) Testosterone injection twice weekly tadalafil (Cialis) 20 mg PO DAILY PRN 90 days tadalafil (Cialis) 5 mg PO DAILY 90 days testosterone cypionate (Depo-Testosterone) 120 mg (0.6 mL) subcut QWEEK 90 days HPI HPI f/u after testing echo, holter ,labs Ett: Details: Naseem is a 28 year old male with past medical history of hyperlipidemia, ADHD, anxiety, DVT with PE 2023 who is being evaluated for shortness of breath and sinus tachycardia. He recently underwent a Holter monitor, echocardiogram and exercise stress test and now presents for follow-up. Today he reports that he still has shortness of breath with exertion. He is noticing that his heart rates are elevated on his smart watch. He does not necessarily feel heart palpitations. No lightheadedness, presyncope, syncope, falls. No PND, orthopnea or edema. No chest discomfort at rest or with activity. His activity is limited by back pain from herniated discs. He is in the but is getting out in December. Compliant with meds. Does not drink caffeinated beverages routinely. [facility] Medical History Acne Excessive daytime sleepiness Bilateral foot pain History of pulmonary embolism History of deep venous thrombosis (DVT) of distal vein of left lower extremity 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 [facility] anticoagulation Bilateral pulmonary embolism Elevated serum creatinine At risk for sexually transmitted disease due to partner with multiple partners Chronic heartburn Cervicalgia Lumbago of lumbar region with sciatica Chronic pain of both feet Hyperlipidemia History of chlamydia Witnessed apneic spells Erectile dysfunction History of COVID-19 Lumbar degenerative disc disease PTSD (post-traumatic stress disorder) Lumbar disc disease with radiculopathy ADD (attention deficit disorder) Surgical History No pertinent past surgical history Social History Housing: Apartment Patient Tobacco Use Status: Never used Tobacco e-Cigarette/Vaping Use: Never Used service: Yes Current occupational status: employed Cognitive needs: No Hearing needs: No Vision needs: No Review of Systems Const All systems reviewed & are unremarkable except as noted in HPI and below ENT Denies dizziness Card Denies chest pain, Denies chest pain at rest, Denies chest pain with activity, Denies rapid heart rate, Denies pedal edema, Denies edema, Denies leg edema, Denies lightheadedness, Denies palpitations, Denies dyspnea, Reports dyspnea on exertion and Denies orthopnea Resp Denies cough, Denies dyspnea and Reports dyspnea on exertion GI Denies hematochezia and Denies change in stool character Musc Details: back discomfort Denies abnormal gait, Denies limited range of motion, Denies muscle cramps, Denies muscle weakness, Denies numbness, Denies radiating pain into limb, Denies stiffness and Denies tingling Neuro Denies abnormal gait, Denies dizziness, Denies numbness and Denies tingling Endo Denies palpitations Physical Exam Vital Signs: Last Vital Signs Pulse 119 H 10/31/24 10:06 BP 118/90 H 10/31/24 10:06 BMI result Body Mass Index 31.0 Const General: cooperative, healthy appearing, comfortable and no acute distress Orientation/consciousness: patient oriented x3 Neck Neck: Yes normal visual inspection Resp Effort & Inspection: normal respiratory effort Auscultation: clear to auscultation bilaterally, no crackles, no rales, no rhonchi and no wheezes Cardio Jugular venous distension: no JVD Rate: tachycardic Rhythm: regular rhythm Heart sounds: S1 normal heart sound present, S2 normal heart sound present, no gallops, no murmurs and no rubs Neuro General: patient oriented x3 Extrem General: Yes normal to inspection, No no pedal edema and No calf tenderness Psych Appearance: grossly normal Mental Status: mental status grossly normal Speech and movement: Normal speech and movement present Office Procedures EKG Details: Today, read by me, sinus tachycardia, nonspecific ST/ T wave abn, rate 119ms [id number], Complete Assessment & Plan Assessment & Plan (1) Sinus tachycardia: Code(s): R00.0 - Tachycardia, unspecified Category: Medical Plan: Cardiac evaluation for sinus tachycardia. Labs showed normal TSH and D-dimer. Holter monitor 10/01/2024 for 2 days shows sinus rhythm with average heart rate 91 beats per minute, 28% of time heart rate greater than 100. Echocardiogram 09/11/2024 showed EF 45-50%, normal valves. He is on medication for ADHD including amphetamine which can contribute to tachycardia. No recent dose changes and has been on this medication for 7 years. This may be contributing to underlying tachycardia. Will check plasma metanephrines and aldosterone. Plan to start on metoprolol XL 50 mg daily. Will recheck Holter monitor in 3 months and limited echocardiogram in 3 months. Instructed on avoidance of caffeinated beverages. Continue good hydration and activity as tolerated. Cardiology follow-up 4 months, sooner if needed. (2) Shortness of breath: Code(s): R06.02 - Shortness of breath Category: Medical Plan: Reported shortness of breath with exertional activities. Admits to no routine exercise due to herniated discs. Exercise stress test 10/11/2024 with exercise 8 minutes with shortness of breath, no EKG changes of ischemia or arrhythmia. Echocardiogram showed mildly reduced EF 45-50%. He tells me he has been started on medication for asthma with some mild improvement in his symptom. His shortness of breath may be multi factorial in the setting of deconditioning, mild cardiomyopathy and asthma. (3) History of pulmonary embolism: Comment: bilateral 12/2023 Code(s): Z86.711 - Personal history of pulmonary embolism Category: Medical Plan: History of DVT with PE following orthopedic injury 2023. No longer on anticoagulation. Recent D-dimer was normal. (4) ADD (attention deficit disorder): Comment: Diagnosed and evaluated in [place] in 2018, started on Adderall, takes as needed currently being seen by a behavioral therapist in [place] Code(s): F98.8 - Other specified behavioral and emotional disorders with onset usually occurring in childhood and adolescence Category: Medical Qualifiers: Attention deficit type: unspecified type Qualified Code(s): F98.8 - Other specified behavioral and emotional disorders with onset usually occurring in childhood and adolescence Plan: On med management as stated above (5) Cardiomyopathy: Code(s): I42.9 - Cardiomyopathy, unspecified Category: Medical Plan: Recent echocardiogram showing mild cardiomyopathy with EF 45-50%. Exercise stress test showed no ischemia. Cardiomyopathy nonischemic and may be related to sinus tachycardia. Will be starting on metoprolol XL 50 mg daily. Repeat echocardiogram in 3 months. Plan I discussed with the patient the diagnosis of sinus tachycardia and the plan to conduct a blood test to rule out metabolic causes. We talked about starting metoprolol to manage the heart rate, with a follow-up heart monitor and echocardiogram in three months to assess improvement. I explained the potential side effects of metoprolol, including fatigue, and reassured the patient about the differences from previous medications that caused hypotension. We also discussed the possibility of inappropriate sinus tachycardia if no metabolic cause is found. The patient was advised to reduce caffeine intake and monitor heart rate regularly. Orders: Orders Metanephrines, Plasma Today R00.0 - Tachycardia, unspecified Aldosterone Today R00.0 - Tachycardia, unspecified CA Echo Limited 3 Months I42.9 - Cardiomyopathy, unspecified, R00.0 - Tachycardia, unspecified ECG 3 day holter monitor Today I42.9 - Cardiomyopathy, unspecified, R00.0 - Tachycardia, unspecified Patient Instructions: - Complete the blood test today as ordered. - Start metoprolol as prescribed, beginning with half a pill and increasing to a full pill if tolerated. - Monitor heart rate regularly, especially when resting. - Reduce caffeine intake to help manage heart rate. - Follow up in three months for a heart monitor and echocardiogram. Patient was informed and verbally consented to the use of an ambient scribe for clinic note documentation during this visit. Visit time spent on chart review, interview, assessment, orders, documentation. Coding Level of Care Code Est Pt Level 4 (26693) Complex EM visit Add On G2211 Diagnoses Sinus tachycardia R00.0 Shortness of breath R06.02 History of pulmonary embolism Z86.711 Attention deficit disorder, unspecified type F98.8 Attention deficit type: unspecified type Cardiomyopathy I42.9 CPT Codes EKG - CPT: 07007-[id number], Complete ([id number]) Time Spent (min) 30
[2024-10-31 10:06] VITALS: BP 118/90; PULSE 119; BMI 31.0
--- OUTSIDE RECORDS SUMMARY | 2024-10-31 11:21 | XMS_ITS | Clinical Summary ---
Author Organization [facility] Address [address] [place] [address] Care Team Providers Care Home Care Consultant Name Role Phone Unavailable Primary Care [...]
--- OUTSIDE RECORDS SUMMARY | 2024-10-31 11:21 | XMS_ITS | Clinical Summary ---
Author Organization [facility] Address [address] [place] [address] Care Team Providers Care Lab Clerk Name Role Phone Unavailable Primary Care Provider [...]
--- OUTSIDE RECORDS SUMMARY | 2024-10-31 11:21 | XMS_ITS | Patient Health Record ---
Author Organization [facility] Address [address] [place] [address] Care Team Providers Care Internal Control Consultant Name Role Phone Ginger ROQUE, Sharon Sewell Primary Care Provider Un available Talisha Lau Unavailable [phone] Waldemar Neri Unavailable [phone] David Garcia Unavailable [phone] Allergies No Known Allergies Results Component Value [...] Provider Speciality Internal M edicine [facility] Referred Provider Talisha Lau Referred Address [address] [facility],[place], [place],[address], Referred Provider Specialty Podiatry Referral Priority Routine [...] Risk Notes Problem Mononeuropathy of lower limb (804247086) Neuritis of right foot (G57.91) Active confirmed Problem Neuritis of left foot (G57.92) Active confirmed Problem Plantar fascial fibromatosis (93772153) Plantar fasciitis, bilateral (M72.2) Active confirmed Vital Signs Blood pressure diastolic 70 mm Hg 08/09/2024 Height 6ft in 10/11/2024 Blood pressure systolic 130 mm Hg 08/09/2024 Weight 228 lbs 10/11/2024 BMI 30.92 kg/m2 10/11/2024 Encounters Encounter Location Date Provider Diagnosis [address] [address] 07/09/2024 Talisha Black Pain in right foot M79.671 ; Plantar fasciitis, bilateral M72.2 ; Other myositis of right foot M60.871 ; Bursitis of right foot M77.51 ; Pain in left foot M79.672 ; Other myositis of left foot M60.872 ; Bursitis of left foot M77.52 ; Pain in right foot M79.671 ; Neuritis of right foot G57.91 and Neuritis of left foot G57.92 [facility] [address] 08/09/2024 Talisha Black Pain in right foot M79.671 ; Plantar fasciitis, bilateral M72.2 ; Other myositis of right foot M60.871 ; Bursitis of right foot M77.51 ; Pain in left foot M79.672 ; Other myositis of left foot M60.872 ; Bursitis of left foot M77.52 ; Pain in right foot M79.671 ; Neuritis of right foot G57.91 and Neuritis of left foot G57.92 [facility] [place] [address] [facility] [place] [address] 10/11/2024 Talisha Black Pain in right foot M79.671 ; Plantar fasciitis, bilateral M72.2 ; Other myositis of right foot M60.871 ; Bursitis of right foot M77.51 ; Pain in left foot M79.672 ; Other myositis of left foot M60.872 ; Bursitis of left foot M77.52 ; Pain in right foot M79.671 ; Neuritis of right foot G57.91 and Neuritis of left foot G57.[address] [facility] [address] 10/28/2024 Talisha Black [facility] [address] [address] 02/05/2024 Talisha Black [facility] [address] [address] 02/15/2024 Talisha Black [facility] [address] 04/11/2024 David Garcia [facility] [address] 07/02/2024 Talisha Black [facility] [address] [address] 07/09/2024 Talisha Black [facility] [address] 08/09/2024 Talisha Black [facility] [address] 10/14/2024 Talisha Black [facility] [address] 10/25/2024 Talisha Black Assessments Encounter Date Diagnosis (ICD [...] Of Treatment Next Appt Details Provider Name:Talisha Dheeraj Lau , 12/20/2024 01:45:00 PM, [address] [facility], [place], [address], Insurance Providers Payer Name Payer Address Payer Phone Subscriber Number Group Number Insured Name Patient Relationship to Insured Coverage Start Date Coverage End Date [facility] [address] [place] [address] [id number] Naseem Aguilar Self - patient is the insured Medical (General) History Medical History History ICD Code Anxiety Back,Hip,and Knee pain covid-19 Depression Headaches/Migraines Reflux ( GERD) Sciatica Vascular phlebitis (clots) Hospitalization History Reason Date(Month/Year) [facility] 03/30
--- OUTSIDE RECORDS SUMMARY | 2024-10-31 11:21 | XMS_ITS | Clinical Summary ---
Author Organization [facility] Address [address] [place] [address] Care Team Providers Care Fiber Worker Name Role Phone Unknown Primary Care Provider [...] of 3 - 19+ 3-dose series) 2013 HPV Vaccines (1 - 3-dose SCDM series) 2021 COVID-19 Vaccine ( - season) 2023 03/12/2021, 07/28/2020, 06/30/2020 Influenza Vaccine 10/04/2024 12/17/2021, , 12/19/2019, Additional history exists Pneumococcal Vaccine: Pediatric (0-5 Years) and At-Risk Patients (6 to 49 Years) Aged Out No longer eligible based on patient's age to complete this topic Insurance ACTIVE DUTY ACTIVE DUTY Care Teams Fiber Worker Relationship Specialty Start Date End Date Unknown Unknow Provider Address PCP - General 01/10/23
== END 2024-10-31 10:45 | disposition home or self-care (01) ==
LOC: HO.HCS 10:05
PROVIDERS: PCP Internal Medicine; Visit Provider Nurse Practitioner Family
DX: R00.0 Tachycardia, unspecified (principal); R06.02 Shortness of breath; Z86.711 Personal history of pulmonary embolism; F98.8 Other specified behavioral and emotional disorders with onset usually occurring in childhood and adolescence; I42.9 Cardiomyopathy, unspecified
CPT/HCPCS: 93010; 99214; G2211

== ENCOUNTER 2024-11-19 12:23 | Outpatient (AMB) | payer OTHER, SELFPAY ==
--- OUTSIDE RECORDS SUMMARY | 2024-02-20 05:30 | XMS_ITS ---
Author Organization [facility] Address [address] [place] [address] Care Team Providers Care Meat Stock Clerk Name Role Phone Ginger ROQUE, Sharon Sewell Primary Care Provider Un available SidTalisha Unavailable [phone] Waldemar Neri Unavailable [phone] Encounters Encounter Location Date Provider Diagnosis [facility] [address] [place] [address] 02/20/2024 Waldemar Neri Plan Of Treatment Next Appt Details Provider Name:Talisha Lau , 12/20/2024 01:45:00 PM, [address] [place], [address], Progress Notes * Naseem ABERNATHY RDOB:[birth year] (29 yo M)Acc No.[id number]:02/20/2024 Progress Notes Patient: Shivani CHADLORRAINENaseem CHENG Provider: Regina Neri DPM :1995 A ge:28 Y S ex:Male Date:02/20/2024 Address:[address] [place], [place] [id number] Pcp:Emma Molina Subjective: * Chief Complaints: * * Medical History: Objective: * Vitals: Assessment: Plan: * Treatment: * Images: * The named appointment provid er may or may not be the originator of this progress note, and it is not deemed complete until electronically signed by the appointment provider. Sign off status: Pending * Provider: Regina Neri DPM Date: 04/22/2023 Generated for Erendira Hayden on: 0 11/19/2024 04:25 PM EDT
--- OUTSIDE RECORDS SUMMARY | 2024-04-18 09:30 | XMS_ITS ---
Author Organization [facility] Address [address] [place] [address] Care Team Providers Care Finishing Wire [place] Name Role Phone Ginger ROQUE, Sharon Sewell Primary Care Provider Un available SidMichealTalisha Unavailable [phone] David Garcia [phone] Encounters Encounter Location [facility] [address] 04/18/2024 David Garcia Plan Of Treatment Next Appt Details Provider Name:Talisha Lau , 12/20/2024 01:45:00 PM, [address] [place] [address], [address], Progress Notes * Naseem ABERNATHY RDOB:[birth year] (29 yo M)Acc No.[id number]:04/18/2024 Progress Notes Patient: Shivani HANSONSKYLAR Naseem Reddy Provider: Emma Garcia D.P.M. :1995 A ge:28 Y S ex:Male Date:04/18/2024 Address:[address] [place] [address] Pcp:Emma Molina Subjective: * Chief Complaints: * [...] 04/18/2024 Generated for Erendira lopez/Prisca/Humphrey on: 0 11/19/2024 04:25 PM EDT
[2024-11-19 12:44] VITALS: BP 100/68; PULSE 112; RESP 16; TEMP 36.8; O2SAT 97; BMI 31.5
--- NOTE | 2024-11-19 12:44 | MHC.PC.OV ---
Vital Signs 11/19/24 12:44 Height 6 ft Weight 232 lb BMI 31.5 BP 100/68 Blood Pressure Location Rt brachial Position Sitting Respiration 16 Pulse 112 H Pulse Source Pulse Oximeter Temp 98.3 F Temp Source Oral Pulse Oximetry (%) 97 Oxygen Delivery Method Room Air Intake Visit Reasons: Annual PE Intake Note: Pt is here today for his PE Allergies oxycodone Allergy (Severe, Verified 11/19/24 13:21) Nausea Seasonal Allergies Allergy (Verified 11/19/24 13:21) sneezing Medication List - Last Reconciled 11/19/24 by Sharon Miles MD baclofen 10 mg PO BID betamethasone dipropionate 0.05% 1 appl topical BID 14 days budesonide-formoterol 80-4.5 mcg/actuation (Symbicort) 1 puff inhalation Q12H 90 days chorionic gonadotropin, human - 0.5cc IM 2 x a week; dilute in 5 ml NS - injection should be 1000 units per injection 60 days dextroamphetamine-amphetamine 15 mg ER 1 cap PO QAM duloxetine 20 mg PO BID insulin syringe,safety needle (BD SafetyGlide Insulin Syringe) As directed - for hcg injection lorazepam 2 mg PO BEDTIME PRN metoprolol succinate ER 50 mg PO DAILY mirtazapine 30 mg PO BEDTIME needle (disp) 18 G (BD Regular [place]vel [place]) As directed - draw up testosterone weekly omeprazole 20 mg PO DAILY ondansetron 8 mg PO TID Pregnyl (chorionic gonadotropin, human) 1,000 units IM 2XW 10 weeks NS safety needles (Easy Touch FlipLock Needle) As directed - administer testosterone weekly syringe (disposable) (BD Luer-Fuentes Syringe) Testosterone injection twice weekly tadalafil (Cialis) 20 mg PO DAILY PRN 90 days tadalafil (Cialis) 5 mg PO DAILY 90 days testosterone cypionate (Depo-Testosterone) 120 mg (0.6 mL) subcut QWEEK 90 days Tobacco use date assessed: 11/19/24 Dental Screening Dental Screen Date: 11/19/24 Did you have a dental visit in the last 12 months?: Yes Did you have a dental problem in the last 6 months where you did not have access to dental care?: No Was dental information given to patient?: Patient has dentist HPI Annual PE HPI Details 29 year old male with past medical history of hyperlipidemia, ADHD, anxiety, DVT with PE 2023 , sinus tachycardia, here for his annual physical exam . Has been seen by Cardiology who ordered a holter monitor for 2 days which showed sinus rhythm with average heart rate 91 beats per minute, 28% of time heart rate greater than 100. Echocardiogram 09/11/2024 showed EF 45-50%, normal valves. He is on medication for ADHD including amphetamine which can contribute to tachycardia. No recent dose changes and has been on this medication for 7 years. This may be contributing to underlying tachycardia. Plasma metanephrines and aldosterone were checked which came back within normal limits. He was placed on on metoprolol XL 50 mg daily needs to follow-up with them for repeat Holter monitor in 3 months and limited echocardiogram in 3 months. He was advised to avoid caffeinated beverages, good hydration and activity this as tolerated. Has appointment with cardiology for follow-up 4 months. He is planning to leave the next month, and return to school He has allergic rhinitis and mild intermittent asthma currently [facility], and started on montelukast, continued on albuterol inhaler to use as needed and placed on Symbicort Presence of chronic neck pain, and is requesting a prescription for alpha- stim, which he states is being widely used in the to help relieve anxiety and chronic pain. Currently being followed for PTSD by Psychiatry currently on duloxetine and mirtazapine. 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 Bilateral pulmonary embolism Elevated serum creatinine At risk for sexually transmitted disease due to partner with multiple partners Chronic heartburn Cervicalgia Lumbago of lumbar region with sciatica Chronic pain of both feet Hyperlipidemia History of chlamydia Witnessed apneic spells Erectile dysfunction History of COVID-19 Lumbar degenerative disc disease PTSD (post-traumatic stress disorder) Lumbar disc disease with radiculopathy ADD (attention deficit disorder) Surgical History No pertinent past surgical history Social History Housing: Apartment Patient Tobacco Use Status: Never used Tobacco e-Cigarette/Vaping Use: Never Used service: Yes Current occupational status: employed Cognitive needs: No Hearing needs: No Vision needs: No Questionnaire PHQ-9 Over the last 2 weeks, how often have you been bothered by any of the following problems? 1. Little interest or pleasure in doing things: several days 2. Feeling down, depressed, or hopeless: several days 3. Trouble falling or staying asleep, or sleeping too much: several days 4. Feeling tired or having little energy: nearly every day 5. Poor appetite or overeating: several days 6. Feeling bad about yourself - or that you are a failure or have let yourself or your family down: several days 7. Trouble concentrating on things, such as reading the newspaper or watching television: several days 8. Moving or speaking so slowly that other people could have noticed. Or the opposite - being so fidgety or restless that you have been moving around a lot more than usual: several days 9. Thoughts that you would be better off or of hurting yourself in some way: not at all Total score: 10 Depression Screening Interpretation: Positive (Currently being seen by Psychiatry) Depression Screening Follow-up: Existing condition, In treatment and Community Mental Health Worker F/U Depression Screening Done: Yes 49440 - PHQ-9 Billing: Yes Source: Developed by Drs. Shamir Ferraro, Jael Adams, Yobani Landaverde and colleagues, with an educational vidya from [employer] Thrive Questionnaire Date Thrive assessed: 11/19/24 I am a: Patient What is your living situation today?: I have a steady place to live Within the past 12 months, did the food you bought not last and you didn't have the money to get more?: I choose not to answer this question Within the past 12 months, did you worry whether your food would run out before you got money to buy more?: I choose not to answer this question Do you have trouble paying for medicines?: No Do you have trouble getting transportation to medical appointments?: No Do you have trouble paying your heating and electricity bill?: I choose not to answer this question Do you have trouble taking care of your child, family member or friend?: I choose not to answer this question Do you have trouble with day-to-day activities such as bathing, preparing meals, shopping, managing finances, etc.?: I choose not to answer this question Are you currently unemployed and looking for a job?: I choose not to answer this question Are you interested in more education?: I choose not to answer this question Please select the resources that you would like help with: None Currently or been in a relationship where the following occur: I choose not to answer THRIVE Score: 0 AUDIT C Alcohol Use Questionnaire (AUDIT-C) 1. How often do you have a drink containing alcohol?: Monthly or less 2. How many drinks containing alcohol do you have on a typical day when you are drinking?: 1 or 2 3. How often do you have six or more drinks on one occasion?: Never Total Score: 1 KHANG-7 AMB Questionnaire KHANG-7 Date KHANG - 7 assessed: 11/19/24 Feeling nervous, anxious, or on edge: 3 = Nearly every day Not being able to stop or control worryin = Nearly every day Worrying too much about different things: 3 = Nearly every day Trouble relaxin = Nearly every day Being so restless that it is hard to sit still: 3 = Nearly every day Becoming easily annoyed or irritable: 1 = Several days Feeling afraid as if something awful might happen: 2 = More than half the days Total KHANG-7 score (0-4 normal; 5-9 mild; 10-14 moderate; 15-21 severe): 18 Source: Developed by Drs. Shamir Ferraro, Jael Adams, Yobani Landaverde and colleagues, with an educational vidya from [employer] Review of Systems Const All systems reviewed & are unremarkable except as noted in HPI and below Eyes Reports no additional complaints ENT Denies dizziness Card Denies chest pain, Denies chest pain at rest, Denies chest pain with activity, Denies rapid heart rate, Denies pedal edema, Denies edema, Denies leg edema, Denies lightheadedness, Denies palpitations, Denies dyspnea, Reports dyspnea on exertion and Denies orthopnea Resp Denies cough, Denies dyspnea and Reports dyspnea on exertion GI Denies abdominal pain, Denies change in bowel habits and Reports heartburn (on omeprazole) Musc Details: back discomfort Reports as per HPI, Denies joint swelling, Denies limited range of motion, Denies muscle cramps, Denies muscle weakness, Denies numbness, Denies radiating pain into limb, Reports stiffness and Denies tingling Skin/Breast Denies rash Neuro Denies dizziness, Denies numbness and Denies tingling Psych Reports as per HPI Endo Denies palpitations Masood/Lymph Reports no additional complaints Aller/Immun Reports as per HPI Physical exam (Primary Care) Vital Signs: Last Vital Signs Temp 98.3 F 11/19/24 12:44 Pulse 112 H 11/19/24 12:44 Resp 16 11/19/24 12:44 BP 100/68 11/19/24 12:44 Pulse Ox 97 11/19/24 12:44 Oxygen Delivery Method Room Air 11/19/24 12:44 BMI result Body Mass Index 31.5 Tobacco/Smoking Status: Tobacco use Status Tobacco use date assessed 11/19/24 11/19/24 12:47 Patient Tobacco Use Status Never used Tobacco 11/19/24 12:47 e-Cigarette/Vaping Use Never Used 11/19/24 12:47 PHQ-9: PHQ-9 Score PHQ-9: Total score 10 11/25/24 00:12 Depression Screening Interpretation: Positive (Currently being seen by Psychiatry) Depression Screening Follow-up: Existing condition, In treatment and Community Mental Health Worker F/U Thrive Assessment: Date of Thrive Assessment Date Thrive assessed 11/19/24 11/19/24 12:47 Currently or been in a relationship where the following occur: I choose not to answer Const General: no acute distress, alert and awake Orientation/consciousness: patient oriented x3 HENMT Head: Yes normocephalic General nose exam: Normal external nose present Face and sinus: Yes face symmetric Mouth: Normal oral and palatal mucosa present, oropharynx normal and moist mucous membranes Eyes General: appearance normal, both eyes and all related structures Neck Neck: Yes full ROM and Yes no lymphadenopathy Resp Effort & Inspection: normal respiratory effort and able to speak in complete sentences Auscultation: clear to auscultation bilaterally Cardio Rate: regular rate Rhythm: regular rhythm Heart sounds: S1 normal heart sound present and S2 normal heart sound present GI Palpation (GI): Soft to palpation, no guarding and no masses Auscultation: normal bowel sounds General: Yes no CVA tenderness Back/Spine/Pelvis Back: no CVA tenderness Skin General skin exam: no rashes or lesions noted Neuro General: patient oriented x3, gait normal, tone normal, moves all extremities and Normal light touch and pain sensation Cranial nerves: Yes CN's II-XII intact bilaterally Cognition (Neuro): normal cognition Motor exam (neuro): 5/5 motor strength present throughout Extrem General: Yes normal to inspection, Yes no joint enlargement, Yes no pedal edema, Yes no calf tenderness and Yes normal gait Psych Appearance: grossly normal Mental Status: mental status grossly normal Speech and movement: Normal speech and movement present Affect: normal affect Coding Level of Care Code Est Pt Prev Care 18-39y(67402) Diagnoses Annual visit for general adult medical examination with abnormal findings Z00.01 Lumbar disc disease with radiculopathy M51.16 PTSD (post-traumatic stress disorder) F43.10 Chronic migraine w/o aura w/o status migrainosus, not intractable G43.709 Encounter for screening examination for sexually transmitted infection Z11.3 Cervicalgia M54.2 Attention deficit disorder, unspecified type F98.8 Attention deficit type: unspecified type Environmental allergies Z91.09 Sinus tachycardia R00.0 Hyperlipidemia E78.5 Chronic heartburn R12 Mild intermittent asthma without complication J45.20 Asthma complication type: uncomplicated Loss of libido R68.82 Additional Codes PHQ-9 - 54430 - PHQ-9 Billing: Yes ([id number]) Assessment & Plan Assessment & Plan (1) Annual visit for general adult medical examination with abnormal findings: Code(s): Z00.01 - Encounter for general adult medical examination with abnormal findings Plan: Will check appropriate labs. Recommended dental visit every 6 months and regular eye exams, at least every 2 years. Instructed do self-testicular exam check for any mass, up-to-date with his vaccines. STI screening ordered (2) Lumbar disc disease with radiculopathy: Comment: L5-S1 status post epidural injection in [place] 2021 currently going to [facility] in [place] status post right L4-L5 interlaminar NITHYA. Code(s): M51.16 - Intervertebral disc disorders with radiculopathy, lumbar region Category: Medical Plan: Followed by pain management (3) PTSD (post-traumatic stress disorder): Comment: ff'd by Gianfranco Kamara NP at [facility] [address], [place] [address] Code(s): F43.10 - Post-traumatic stress disorder, unspecified Category: Medical Plan: Followed by psychiatry (4) Chronic migraine w/o aura w/o status migrainosus, not intractable: Code(s): G43.709 - Chronic migraine without aura, not intractable, without status migrainosus Category: Medical Plan: Referred to neurology (5) Encounter for screening examination for sexually transmitted infection: Code(s): Z11.3 - Encounter for screening for infections with a predominantly sexual mode of transmission Plan: Ordered CT and T by PCR urine, HIV testing syphilis screening and hepatitis-B and C profile (6) Cervicalgia: Code(s): M54.2 - Cervicalgia Category: Medical Plan: Referred for physical therapy, prescription given to try Alpha- stim. Prescription given for lidocaine patch 5% and ibuprofen to take as needed (7) ADD (attention deficit disorder): Comment: Diagnosed and evaluated in [place] in 2018, started on Adderall, takes as needed currently being seen by a behavioral therapist in [place] Code(s): F98.8 - Other specified behavioral and emotional disorders with onset usually occurring in childhood and adolescence Category: Medical Qualifiers: Attention deficit type: unspecified type Qualified Code(s): F98.8 - Other specified behavioral and emotional disorders with onset usually occurring in childhood and adolescence Plan: Currently on Adderall followed by Psychiatry (8) Environmental allergies: Code(s): Z91.09 - Other allergy status, other than to drugs and biological substances Category: Medical Plan: Seen by [facility], (9) Sinus tachycardia: Code(s): R00.0 - Tachycardia, unspecified Category: Medical Plan: Currently on metoprolol tartrate, followed by cardiology (10) Hyperlipidemia: Code(s): E78.5 - Hyperlipidemia, unspecified Category: Medical Plan: Fasting lipid panel ordered (11) Chronic heartburn: Code(s): R12 - Heartburn Category: Medical Plan: On omeprazole (12) Mild intermittent asthma: Code(s): J45.20 - Mild intermittent asthma, uncomplicated Category: Medical Qualifiers: Asthma complication type: uncomplicated Qualified Code(s): J45.20 - Mild intermittent asthma, uncomplicated Plan: Has an albuterol inhaler taken as needed (13) Loss of libido: Code(s): R68.82 - Decreased libido Category: Medical Plan: Followed by Urology, receiving testosterone supplements Orders: Orders CT NG by PCR Urine 11/20/24 Z11.3 - Encounter for screening for infections with a predominantly sexual mode of transmission Vitamin B12 and Folate 11/20/24 R53.83 - Other fatigue Vitamin D 25-OH Total 11/20/24 R53.83 - Other fatigue HIV 1 Resistance Proviral DNA 11/20/24 Z11.3 - Encounter for screening for infections with a predominantly sexual mode of transmission Hepatitis B,C Profile 11/20/24 Z11.3 - Encounter for screening for infections with a predominantly sexual mode of transmission Syphilis Screen 11/20/24 Z11.3 - Encounter for screening for infections with a predominantly sexual mode of transmission PT Evaluation and Treatment 11/19/24 M54.2 - Cervicalgia Lipid Panel 11/20/24 Z13.1 - Encounter for screening for diabetes mellitus, Z13.220 - Encounter for screening for lipoid disorders Glucose Fasting 11/20/24 Z13.1 - Encounter for screening for diabetes mellitus, Z13.220 - Encounter for screening for lipoid disorders Referrals Neurology Referral G43.709 - Chronic migraine without aura, not intractable, without status migrainosus Medications: New lidocaine 5% leave on most painful area for up to 12 hrs 1 patch topical BID 60 ea 5RF 30 days ibuprofen 800 mg PO Q8H PRN 90 tabs 1RF pain [alpha-stim] As directed 1 ea 0RF NS F43.10 - Post-traumatic stress disorder, unspecified, G43.909 - Migraine, unspecified, not intractable, without status migrainosus, G89.29 - Other chronic pain, M51.16 - Intervertebral disc disorders with radiculopathy, lumbar region, M79.671 - Pain in right foot, M79.672 - Pain in left foot
--- OUTSIDE RECORDS SUMMARY | 2024-11-19 16:25 | XMS_ITS | Patient Health Record ---
[facility] Address [address] [place] [address] Care Team Providers Care Editor Farm Journal Name Role Phone Ginger ROQUE, Sharon Sewell Primary Care Provider Un available Talisha Lau Unavailable [phone] Waldemar Neri Unavailable [phone] David Garcia Unavailable [phone] Allergies No Known Allergies Results Component Value [...] Provider Speciality Internal M edicine [facility] Referred Provider Talisha Lau Referred Address [address] [facility],[place],[address], Referred Provider Specialty Podiatry Referral Priority Routine [...] Risk Notes Problem Mononeuropathy of lower limb (507123939) Neuritis of right foot (G57.91) Active confirmed Problem Mononeuropathy of lower limb (884478207) Neuritis of left foot (G57.92) Active confirmed Problem Plantar fascial fibromatosis (17426270) Plantar fasciitis, bilateral (M72.2) Active confirmed Vital Signs Blood pressure diastolic 70 mm Hg 08/09/2024 Height 6ft in 10/11/2024 Blood pressure systolic 130 mm Hg 08/09/2024 Weight 228 lbs 10/11/2024 BMI 30.92 kg/m2 10/11/2024 Encounters Encounter Location Date [facility] [address] 07/09/2024 Talisha Black Pain in right foot M79.671 ; Plantar fasciitis, bilateral M72.2 ; Other myositis of right foot M60.871 ; Bursitis of right foot M77.51 ; Pain in left foot M79.672 ; Other myositis of left foot M60.872 ; Bursitis of left foot M77.52 ; Pain in right foot M79.671 ; Neuritis of right foot G57.91 and Neuritis of left foot G57.[address] [facility] [address] 08/09/2024 Talisha Black Pain in right foot M79.671 ; Plantar fasciitis, bilateral M72.2 ; Other myositis of right foot M60.871 ; Bursitis of right foot M77.51 ; Pain in left foot M79.672 ; Other myositis of left foot M60.872 ; Bursitis of left foot M77.52 ; Pain in right foot M79.671 ; Neuritis of right foot G57.91 and Neuritis of left foot G57.92 [facility] [address] [place] [address] 10/11/2024 Talisha Black Pain in right foot M79.671 ; Plantar fasciitis, bilateral M72.2 ; Other myositis of right foot M60.871 ; Bursitis of right foot M77.51 ; Pain in left foot M79.672 ; Other myositis of left foot M60.872 ; Bursitis of left foot M77.52 ; Pain in right foot M79.671 ; Neuritis of right foot G57.91 and Neuritis of left foot G57.[address] [facility] [address] 10/28/2024 Talisha Black [facility] [address] [address] 02/05/2024 Talisha Black [facility] [address] 02/15/2024 Talisha Black [facility] [address] 04/11/2024 David Garcia [facility] [address] 07/02/2024 Talisha Black [facility] [address] [address] 07/09/2024 Talisha Black [facility] [address] 08/09/2024 Talisha Black [facility] [address] [address] 10/14/2024 Talisha Black [facility] [address] 10/25/2024 Talisha Black Assessments Encounter Date Diagnosis [...] Dheeraj Lau , 12/20/2024 01:45:00 PM, [address] [facility], [place], [address], Insurance Providers Payer Name Payer Address Payer Phone Subscriber Number Group Number Insured Name Patient Relationship to Insured Coverage Start Date Coverage End Date [facility] [address] [place] [address] [id number] Naseem Aguilar Self - patient is the insured Medical (General) History Medical History History ICD Code Anxiety Back,Hip,and Knee pain covid-19 Depression Headaches/Migraines Reflux ( GERD) Sciatica Vascular phlebitis (clots) Hospitalization History Reason Date(Month/Year) [facility] 03/30
--- OUTSIDE RECORDS SUMMARY | 2024-11-19 16:26 | XMS_ITS | Clinical Summary ---
Author Organization [facility] Address [address] [place] [address] Care Team Providers Care Supervisor Molding Name Role Phone Unavailable Primary Care Provider [...] of 3 - 19+ 3-dose series) 2013 HIV Screening 12/31/2023 Hepatitis C Screening 12/31/2023 Social Influencers of Health Screening 12/31/2023 Depression Screening 03/06/2024 COVID-19 Vaccine ( - 2023-2 5 season) 2024 Influenza Vaccine (#1) 2024 HIB Vaccines Aged [...]
--- OUTSIDE RECORDS SUMMARY | 2024-11-19 16:26 | XMS_ITS | Clinical Summary ---
Author Organization [facility] Address [address] [place] [address] Care Team Providers Care Forensic Scientist Name Role Phone Unknown Primary Care Provider [...] Vaccines (1 - 3-dose SCDM series) 2021 Influenza Vaccine 10/04/2024 12/17/2021, , 12/19/2019, Additional history exists COVID-19 Vaccine (2024- season) 2024 03/12/2021, 07/28/2020, 06/30/2020 Pneumococcal Vaccine: Pediatric (0-5 Years) and At-Risk Patients (6 to 49 Years) Aged Out No longer eligible based on patient's age to complete this topic Insurance ACTIVE DUTY ACTIVE DUTY Care Teams Forensic Scientist Relationship Specialty Start Date End Date Unknown Unknow Provider Address PCP - General 01/10/23
== END 2024-11-19 14:23 | disposition home or self-care (01) ==
LOC: HO.HMCC 12:24
PROVIDERS: PCP Internal Medicine; Visit Provider Internal Medicine
DX: Z00.01 Encounter for general adult medical examination with abnormal findings (principal); M51.16 Intervertebral disc disorders with radiculopathy, lumbar region; F43.10 Post-traumatic stress disorder, unspecified; G43.709 Chronic migraine without aura, not intractable, without status migrainosus; Z11.3 Encounter for screening for infections with a predominantly sexual mode of transmission; M54.2 Cervicalgia; F98.8 Other specified behavioral and emotional disorders with onset usually occurring in childhood and adolescence; Z91.09 Other allergy status, other than to drugs and biological substances; R00.0 Tachycardia, unspecified; E78.5 Hyperlipidemia, unspecified; R12 Heartburn; J45.20 Mild intermittent asthma, uncomplicated; R68.82 Decreased libido

== ENCOUNTER → 2024-11-19 12:23 | Outpatient (BNVA) | payer OTHER, SELFPAY | PROVIDERS: PCP Internal Medicine; Visit Provider Internal Medicine | DX: Z00.01 Encounter for general adult medical examination with abnormal findings (principal); M54.2 Cervicalgia; G89.29 Other chronic pain; M51.16 Intervertebral disc disorders with radiculopathy, lumbar region; F43.10 Post-traumatic stress disorder, unspecified; G43.709 Chronic migraine without aura, not intractable, without status migrainosus; R00.0 Tachycardia, unspecified; E78.5 Hyperlipidemia, unspecified; R12 Heartburn; J45.20 Mild intermittent asthma, uncomplicated; R68.82 Decreased libido; F98.8 Other specified behavioral and emotional disorders with onset usually occurring in childhood and adolescence; F90.9 Attention-deficit hyperactivity disorder, unspecified type; Z86.718 Personal history of other venous thrombosis and embolism; Z91.09 Other allergy status, other than to drugs and biological substances; Z79.899 Other long term (current) drug therapy | CPT/HCPCS: 96127 ==

== ENCOUNTER 2024-11-20 08:38 | Outpatient (REF) | payer OTHER, SELFPAY ==
--- OUTSIDE RECORDS SUMMARY | 2024-02-20 05:30 | XMS_ITS ---
Author Organization [facility] Address [address] [place] [address] Care Team Providers Care Calibration Specialist Name Role Phone Ginger ROQUE, Sharon Sewell Primary Care Provider Un available SidTalisha Unavailable [phone] Waldemar Neri Unavailable [phone] Encounters Encounter Location Date Provider Diagnosis [facility] [address] [place] [address] 02/20/2024 Waldemar Neri Plan Of Treatment Next Appt Details Provider Name:Talisha Lau , 12/20/2024 01:45:00 PM, [address] [place], [address], Progress Notes * Naseem ABERNATHY RDOB:[birth year] (29 yo M)Acc No.[id number]:02/20/2024 Progress Notes Patient: Shivani CHADLORRAINENaseem CHENG Provider: Regina Neri DPM :1995 A ge:28 Y S ex:Male Date:02/20/2024 Address:[address] [place], [place] [id number] Pcp:Emma Molina Subjective: * Chief Complaints: * * Medical History: Objective: * Vitals: Assessment: Plan: * Treatment: * Images: * The named appointment provid er may or may not be the originator of this progress note, and it is not deemed complete until electronically signed by the appointment provider. Sign off status: Pending * Provider: Regina Neri DPM Date: 04/22/2023 Generated for Erendira Will/Humphrey on: 0 11/20/2024 09:58 AM EDT
--- OUTSIDE RECORDS SUMMARY | 2024-04-18 09:30 | XMS_ITS ---
Author Organization [facility] Address [address] [place] [address] Care Team Providers Care Shank Turner Name Role Phone Ginger ROQUE, Sharon Sewell Primary Care Provider Un available SidTalisha Unavailable [phone] David Garcia [phone] Encounters Encounter Location Date [facility] [address] 04/18/2024 David Garcia Plan Of Treatment Next Appt Details Provider Name:Talisha Lau , 12/20/2024 01:45:00 PM, [address] [place] [address], [address], Progress Notes * Naseem ABERNATHY RDOB:[birth year] (29 yo M)Acc No.[id number]:04/18/2024 Progress Notes Patient: Shivani HANSONSKYLAR Naseem Reddy Provider: Emma Garcia D.P.M. :1995 A ge:28 Y S ex:Male Date:04/18/2024 Address:[address] [place] [address] Pcp:Emma Molina Subjective: * Chief Complaints: * * Medical History: Objective: * Vitals: Assessment: Plan: * Treatment: * Images: * The named appointment provid er may or may not be the originator of this progress note, and it is not deemed complete until electronically signed by the appointment provider. Sign off status: Pending * Provider: Elias PopPRoxM. Date: 0 04/18/2024 Generated for Erendira lopez/Prisca/Humphrey on: 0 11/20/2024 09:58 AM EDT
--- OUTSIDE RECORDS SUMMARY | 2024-11-20 09:58 | XMS_ITS | Patient Health Record ---
[facility] Address [address] [place] [address] Care Team Providers Care Inspection Clerk Name Role Phone Ginger ROQUE, Sharon Sewell Primary Care Provider Un available Talisha Lau Unavailable [phone] Waldemar Neri Unavailable [phone] David Garcia Unavailable [phone] Allergies No Known Allergies Results Component Value [...] Provider Speciality Internal M edicine [facility] Provider Talisha Lau Referred Address [address] [facility],[place],[address], Referred Provider Specialty Podiatry Referral Priority Routine [...] Risk Notes Problem Mononeuropathy of lower limb (658199967) Neuritis of right foot (G57.91) Active confirmed Problem Mononeuropathy of lower limb (830473389) Neuritis of left foot (G57.92) Active confirmed Problem Plantar fascial fibromatosis (31390885) Plantar fasciitis, bilateral (M72.2) Active confirmed Vital Signs Blood pressure diastolic 70 mm Hg 08/09/2024 Height 6ft in 10/11/2024 Blood pressure systolic 130 mm Hg 08/09/2024 Weight 228 lbs 10/11/2024 BMI 30.92 kg/m2 10/11/2024 Encounters Encounter Location Date Provider [facility] [address] 07/09/2024 Talisha Black Pain in right foot M79.671 ; Plantar fasciitis, bilateral M72.2 ; Other myositis of right foot M60.871 ; Bursitis of right foot M77.51 ; Pain in left foot M79.672 ; Other myositis of left foot M60.872 ; Bursitis of left foot M77.52 ; Pain in right foot M79.671 ; Neuritis of right foot G57.91 and Neuritis of left foot G57.[address] [facility] [address] 08/09/2024 Talisha Black Pain in right foot M79.671 ; Plantar fasciitis, bilateral M72.2 ; Other myositis of right foot M60.871 ; Bursitis of right foot M77.51 ; Pain in left foot M79.672 ; Other myositis of left foot M60.872 ; Bursitis of left foot M77.52 ; Pain in right foot M79.671 ; Neuritis of right foot G57.91 and Neuritis of left foot G57.92 [facility] [place] [address] [place] [address] 10/11/2024 Talisha Black Pain in right foot M79.671 ; Plantar fasciitis, bilateral M72.2 ; Other myositis of right foot M60.871 ; Bursitis of right foot M77.51 ; Pain in left foot M79.672 ; Other myositis of left foot M60.872 ; Bursitis of left foot M77.52 ; Pain in right foot M79.671 ; Neuritis of right foot G57.91 and Neuritis of left foot G57.[address] [facility] [address] 10/28/2024 Talisha Black [facility] [address] [address] 02/05/2024 Talisha Black [facility] [address] 02/15/2024 Talisha Black [facility] [address] 04/11/2024 David Garcia [facility] [address] 07/02/2024 Talisha Black [facility] [address] [address] 07/09/2024 Talisha Black [facility] [address] 08/09/2024 Talisha Black [facility] [address] [address] 10/14/2024 Talisha Black [facility] [address] 10/25/2024 Talisha Black Assessments Encounter Date Diagnosis [...] Dheeraj Lau , 12/20/2024 01:45:00 PM, [address] [facility], [place], [address], Insurance Providers Payer Name Payer Address Payer Phone Subscriber Number Group Number Insured Name Patient Relationship to Insured Coverage Start Date Coverage End Date [facility] [address] [place] [address] [id number] Naseem Aguilar Self - patient is the insured Medical (General) History Medical History History ICD Code Anxiety Back,Hip,and Knee pain covid-19 Depression Headaches/Migraines Reflux ( GERD) Sciatica Vascular phlebitis (clots) Hospitalization History Reason Date(Month/Year) [facility] 03/30
--- OUTSIDE RECORDS SUMMARY | 2024-11-20 09:59 | XMS_ITS | Clinical Summary ---
Author Organization [facility] Address [address] [place] [address] Care Team Providers Care Enlisted Aircrew/Aerial Observer/Gunner Name Role Phone Unknown Primary Care Provider [...] Insurance ACTIVE DUTY ACTIVE DUTY Care Teams Enlisted Aircrew/Aerial Observer/Gunner Relationship Specialty Start Date End Date Unknown Unknow Provider Address PCP - General 01/10/23
--- OUTSIDE RECORDS SUMMARY | 2024-11-20 09:59 | XMS_ITS | Clinical Summary ---
Author Organization [facility] Address [address] [place] [address] Care Team Providers Care Resource Agent Name Role Phone Unavailable Primary Care Provider [...]
--- OUTSIDE RECORDS SUMMARY | 2024-11-20 09:59 | XMS_ITS | Clinical Summary ---
Author Organization [facility] Address [address] [place] [address] Care Team Providers Care Perinatal Nurse Name Role Phone Unavailable Primary Care Provider [...]
[2024-11-20 10:47] LABS: Cholesterol 248 mg/dL (<200); HDL Cholesterol 40 mg/dL (>40); Triglycerides 144 mg/dL (<150)
[2024-11-20 11:24] LABS: Folate 9.1 ng/mL (> or = 4.0); Vitamin B12 387 pg/mL (200-900)
[2024-11-20 12:23] LABS: CT PCR Urine NOT DETECTED (Not Detect.); NG PCR Urine NOT DETECTED (Not Detect.)
[2024-11-21 04:40] LABS: Syphilis Screen Nonreactive (Nonreactive)
[2024-11-21 05:25] LABS: HBS Num1 91.54 mIU/mL (0-7.99); HBc Num1 0.05 S/CO (0.00-0.79); HBsAGNum1 0.44 S/CO (0.00-0.99); Hepatitis B Surface Antigen Negative (Negative); ~HepC Num1 0.05 S/CO (0.00-0.79); ~Hepatitis B Surface Antibody REACTIVE (Nonreactive); ~Hepatitis C Antibody Nonreactive (Nonreactive)
== END 2024-11-20 08:39 | disposition home or self-care (01) ==
LOC: HO.HMGCLDS 08:38
PROVIDERS: PCP Internal Medicine; Visit Provider Internal Medicine
DX: Z11.3 Encounter for screening for infections with a predominantly sexual mode of transmission (principal); Z13.220 Encounter for screening for lipoid disorders; Z13.6 Encounter for screening for cardiovascular disorders; Z11.59 Encounter for screening for other viral diseases; Z11.8 Encounter for screening for other infectious and parasitic diseases; R53.83 Other fatigue
CPT/HCPCS: 80061; 82306; 82607; 82746; 82947; 86704; 86706; 86780; 86803; 87340; 87491; 87591; 87900; 87901; 87906

== ENCOUNTER 2024-11-28 09:33 | Outpatient (AMB) | payer OTHER, SELFPAY ==
--- NOTE | 2024-11-28 09:48 | MHC.OFFVIS ---
Intake Visit Reasons: 6m/labs Intake Note: Patient is present for 6M/TESTO Urology Medication:TADALAFIL,TESTOSTERONE Antibiotic Allergy:NONE Blood Thinner:APIXABAN Labs done 10/31/24 ,Total testosterone 1277, PSA 0.34 Upsetter Required: No Accompanied by: Self / Same As Patient Allergies oxycodone Allergy (Severe, Verified 11/28/24 09:49) Nausea Seasonal Allergies Allergy (Verified 11/28/24 09:49) sneezing HPI Comments Details: Naseem is a pleasant male. He is a patient of Dr. Miles. Has a following urological conditions - erectile dysfunction - hypogonadism Follow-up after increased dosage to 0.6 cc Testosterone 1200 Discussed dosage at 0.3 cc 2 times a week Cut back hCG to 500 units 2 times a week Six-month follow-up repeat lab work Significant improvement in well be Hypogonadism Had good response to clomiphene stimulation TSH 12/26 1.60 FSH 12/26 2.7 07/27 5.3 Estradiol 1 13, 07/27 29 LH 12/26 5.9, 04/29 8.5, 07/27 10.7, LH 3.9 Prolactin 12/26 7.6, 07/27 8.0 SHBG 12/26 19, 07/27 24 Total testosterone 10/26 378, 12/26 297, 03/29 256, 04/29 606, 07/27 653, 11/27 542, 02/26 612, 10/28 1200 Free testosterone 10/26 86.6, 12/26 58.5, 03/29 50.0, 04/29 135.1, 07/27 TNP, 11/27 104 PFSH Medical History (Updated 11/25/24 @ 00:29 by Sharon Miles MD) Dyslipidemia Mild intermittent asthma Chronic migraine w/o aura w/o status migrainosus, not intractable Acne Excessive daytime sleepiness Bilateral foot pain History of pulmonary embolism History of deep venous thrombosis (DVT) of distal vein of left lower extremity 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 retirement anticoagulation Bilateral pulmonary embolism Elevated serum creatinine At risk for sexually transmitted disease due to partner with multiple partners Chronic heartburn Cervicalgia Lumbago of lumbar region with sciatica Chronic pain of both feet Hyperlipidemia History of chlamydia Witnessed apneic spells Erectile dysfunction History of COVID-19 Lumbar degenerative disc disease PTSD (post-traumatic stress disorder) Lumbar disc disease with radiculopathy ADD (attention deficit disorder) Surgical History No pertinent past surgical history Social History Housing: Apartment Patient Tobacco Use Status: Never used Tobacco e-Cigarette/Vaping Use: Never Used service: Yes Current occupational status: employed Cognitive needs: No Hearing needs: No Vision needs: No Review of Systems Const Denies chills and Denies fever(s) Card Reports no additional complaints and Denies syncope Resp Denies cough GI Denies abdominal pain and Denies heartburn Reports as per HPI and Denies change in libido Neuro Denies syncope Psych Denies change in libido Endo Denies change in libido Physical Exam Const General: cooperative, healthy appearing, comfortable and no acute distress Orientation/consciousness: patient oriented x3 HEENT Face and sinus: Yes normal facial exam Mouth: moist mucous membranes Neck Neck: Yes normal visual inspection, Yes full ROM and Yes trachea midline Chest Chest palpation & inspection: normal inspection of the chest Resp Effort & Inspection: normal respiratory effort, able to speak in complete sentences and no respiratory distress GI Inspection: Yes normal to inspection Back/Spine/Pelvis Cervical Spine: normal cervical lordosis Thoracic/Lumbar Spine: thoracic and lumbar spine normal to inspection Skin General skin exam: no rashes or lesions noted Neuro General: patient oriented x3, gait normal, tone normal and moves all extremities Extrem General: Yes normal to inspection and Yes capillary refill normal Assessment & Plan Assessment & Plan (1) Loss of libido: Code(s): R68.82 - Decreased libido Category: Medical (2) Erectile dysfunction: Code(s): N52.9 - Male erectile dysfunction, unspecified Category: Medical (3) Hypogonadism in male: Code(s): E29.1 - Testicular hypofunction Category: Medical Plan Six-month follow-up Orders: Orders Estrad Free (Tot Ultra + Free) 5 Months E29.1 - Testicular hypofunction Testosterone, Total 5 Months E29.1 - Testicular hypofunction Lutenizing Hormone 5 Months E29.1 - Testicular hypofunction Hematocrit 5 Months E29.1 - Testicular hypofunction Medications: Changed From Pregnyl (chorionic gonadotropin, human) 10,000 mix in 5cc of NSal Inject 0.5cc (1000 units) 2x a week intramuscular. 1,000 units IM 2XW 10 weeks 1 ea 2RF testiclular pain with testosterone - low E2 NS E29.1 - Testicular hypofunction To Pregnyl (chorionic gonadotropin, human) 10,000 mix in 5cc of NSal Inject 0.25cc (500 units) 2x a week intramuscular. 500 units IM 2XW 1 ea 2RF testiclular pain with testosterone - low E2 10 weeks NS E29.1 - Testicular hypofunction Refilled testosterone cypionate (Depo-Testosterone) Draw up with 18G needle - inject with 23G 120 mg (0.6 mL) subcut QWEEK 10 mL 1RF 90 days E29.1 - Testicular hypofunction Patient Instructions: This note is constructed using voice recognition software. While every effort has been made to ensure accuracy vending machine collector errors may have been included. Imaging studies, laboratory and physical exam results were discussed and reviewed in detail. No major barriers to patient understanding were identified. An opportunity to ask questions regarding the treatment plan was provided. All questions were answered. The patient expressed understanding and agreement with the above treatment plan. The patient is aware they should contact our office by phone for worsening of their current condition or the appearance of new urologic symptoms. Compliance is encouraged with any medications and followup testing that is ordered. It is a privilege to participate in the urologic care of your patient. If you have any questions or concerns regarding treatment for the above conditions, or other urologic issues, please do not hesitate to contact me. The office telephone contact is [phone]. Sincerely, Dr Cesar Cat MD, [facility] - Urology Compassionate Specialist Care for the Genitourinary System Coding Level of Care Code Est Pt Level 3 (44676) Complex EM visit Add On G2211 Diagnoses Loss of libido R68.82 Erectile dysfunction N52.9 Hypogonadism in male E29.1
--- OUTSIDE RECORDS SUMMARY | 2024-11-28 11:06 | XMS_ITS | Clinical Summary ---
Author Organization [facility] Address [address] [place] [address] Care Team Providers Care Logistics Officer Name Role Phone Unknown Primary Care Provider [...] Insurance ACTIVE DUTY ACTIVE DUTY Care Teams Logistics Officer Relationship Specialty Start Date End Date Unknown Unknow Provider Address PCP - General 01/10/23
--- OUTSIDE RECORDS SUMMARY | 2024-11-28 11:06 | XMS_ITS | Clinical Summary ---
Author Organization [facility] Address [address] [place] [address] Care Team Providers Care It Systems Analyst Consultant Name Role Phone Unavailable Primary Care [...]
== END 2024-11-28 10:27 | disposition home or self-care (01) ==
LOC: HO.HUSH 09:34
PROVIDERS: PCP Internal Medicine; Visit Provider Urology
DX: R68.82 Decreased libido (principal); N52.9 Male erectile dysfunction, unspecified; E29.1 Testicular hypofunction
CPT/HCPCS: 99213; G2211

== ENCOUNTER → 2024-11-28 09:33 | Outpatient (BNVA) | payer OTHER, SELFPAY | PROVIDERS: PCP Internal Medicine; Visit Provider Urology | DX: R68.82 Decreased libido (principal); N52.9 Male erectile dysfunction, unspecified; E29.1 Testicular hypofunction | CPT/HCPCS: 99212 ==